=== PATIENT | male | born 1985 | race Caucasian/White ===

== ENCOUNTER 2016-03-22 11:29 | Inpatient (IN) | payer BC, MEDICARE ==
[2016-03-22] MEDS ORDERED: NS 0.9% 1000 ML* 1,000 ML IV ONE (12:12)
[2016-03-22] MEDS ORDERED: Octreotide Acetate* 50 MCG in NS 0.9% 50 ML* 50 ML IVPB ONE ×2 (12:32→12:36)
[2016-03-22] MEDS ORDERED: Ondansetron INJ* 2 MG/ML VIAL IV ONE (12:32)
[2016-03-22 12:43] LABS: Hematocrit 28 % (42-52); Hemoglobin 9.2 g/dl (14.0-18.0); Mean Corpuscular HGB Conc 33 g/dl (31-36); Mean Corpuscular Hemoglobin 29 pg (27-31); Mean Corpuscular Volume 88 fL (80-94); Mean Platelet Volume 8 um3 (7.4-10.4); Red Blood Count 3.18 10^6/ul (4.0-5.4); Red Cell Distribution Width 15 % (10.5-15); White Blood Count 8.4 10^3/ul (3.5-10.8)
[2016-03-22] MEDS ORDERED: NS 0.9% 50 ML* 100 ML ONE (12:44)
[2016-03-22] MEDS ORDERED: Labetalol IV* 5 MG/ML 20 ML VIAL IV PUSH ONE (13:01)
[2016-03-22 13:17] LABS: Albumin 3.8 g/dL (3.2-5.2); BUN/Creatinine Ratio 5.6 (8-20); EGFR Non-African American 2.4 (>60); Globulin 2.1 g/dL (2-4); Magnesium 2.9 mg/dL (1.9-2.7); Total Bilirubin 0.7 mg/dL (0.2-1.0); Total Protein 5.9 g/dL (6.4-8.9)
[2016-03-22 13:20] LABS: Potassium 6.7 mmol/L (3.5-5.0)
[2016-03-22] MEDS ORDERED: Insulin REGULAR(*) 1 UNITS UNIT IV PUSH ONE ×2 (13:29→18:41)
[2016-03-22] MEDS ORDERED: Dextrose 50% Syringe 50 ML* 25 GM/50 ML SYRINGE IV PUSH PRN (13:29)
[2016-03-22] MEDS ORDERED: Calcium Gluconate INJ* 1 GM in NS 0.9% 50 ML* 50 ML IVPB ONE ×2 (13:29→19:15)
[2016-03-22] MEDS ORDERED: Albuterol 2.5 MG/3 ML NEB.SOL* (0.083%) INH ONE (13:29)
[2016-03-22] MEDS ORDERED: fentaNYL* 50 MCG/ML 2 ML VIAL (100 MCG VIAL) IV SLOW PU ONE (13:31)
[2016-03-22] MEDS ORDERED: Metoclopramide IV* 5 MG/ML 2 ML VIAL IV ONE (13:32)
--- NOTE | 2016-03-22 13:39 | RAD ---
INDICATION: Hematemesis COMPARISON: March 04, 2016 TECHNIQUE: A single PA view is obtained. FINDINGS: Bones/Soft Tissues: There are no acute bony findings. Cardiomediastinal: The cardiomediastinal silhouette is normal. Lungs: There are no infiltrates. Pleura: There are no pleural effusions. Other: None IMPRESSION: Normal chest.
--- NOTE | 2016-03-22 13:41 | RAD ---
INDICATION: Epigastric pain COMPARISON: CT February 19, 2016 TECHNIQUE: A single view of the abdomen is submitted. FINDINGS: Bones: There are no acute bony findings. Soft tissues: The soft tissues appear normal. The psoas margins are sharp. Bowel gas pattern: Normal Calcifications: There are no abnormal calcifications. Other: There are clips in the gallbladder fossa. There are clips projecting over the right minor pelvis IMPRESSION: NO ACUTE DIAGNOSTIC FINDINGS.
[2016-03-22] MEDS ORDERED: Pantoprazole IV* 40 MG IV ONE (13:47)
[2016-03-22] MEDS ORDERED: Sodium Polystyrene RECTAL* 30 GM/120 ML RECTAL.SUS PR ONE (14:12)
[2016-03-22] MEDS ORDERED: Morphine INJ* 4 MG/ML 1 ML SYRINGE IV PRN (14:28)
--- NOTE | 2016-03-22 14:47 | ED ---
Rashaun Alejandro Billy, scribed for Jorge Melendez MD on 03/22/16 at 1219 . GI/ HPI - HPI Summary HPI Summary: Patient is a 31 year-old male coming to [facility] presenting with 3x episodes of coffee grounds hematemesis since 2200 last night. He states that he had moderate epigastric pain associated with these episodes. Denies TEIXEIRA or black stools. Denies anticoag treatment. PMHx of Alport Syndrome, patient is on dialysis. - History of Current Complaint Chief Complaint: EDGIBleed Time Seen by Provider: 03/22/16 12:11 Stated Complaint: VOMITTING BLOOD Hx Obtained From: Patient Onset/Duration: Started Hours Ago, Still Present Timing: Intermittent Severity: Moderate Current Severity: Moderate Pain Intensity: 6 Location of Pain: Epigastric Associated Signs and Symptoms: Positive: Hematemesis - coffee grounds, Abdominal Pain. Negative: Black Tarry Stool - Additional Pertinent History Primary Care Physician: MATT - Allergy/Home Medications Allergies/Adverse Reactions: Allergies Allergy/AdvReac Type Severity Reaction Status Date / Time Hydrocodone [From Vicodin] AdvReac Intermediate TWITCHING Verified 03/22/16 11: 45 PMH/Surg Hx/FS Hx/Imm Hx Endocrine/Hematology History: Reports: Hx Anticoagulant Therapy, Hx Anemia Denies: Hx Blood Disorders, Hx Blood Transfusions, Hx Bone Marrow Disease, Hx Diabetes, Hx Systemic Lupus Erythematosus, Hx Sickle Cell Disease, Hx Thyroid Disease, Hx Unexplained Bleeding, Other Endocrine/Hematological Disorders Cardiovascular History: Reports: Hx Embolism - PE, Hx Hypertension - ON MEDS, Other Cardiovascular Problems/Disorders - RT.KIDNEY TRANSPLANT FAILED AND REMOVED/DIALYSIS -W- Denies: Hx Aneurysm, Hx Angina, Hx Angioplasty, Hx Auto Implanted Cardiovert Defib, Hx Cardiac Arrest, Hx Cardiomegaly, Hx Congenital Heart Disease, Hx Congestive Heart Failure, Hx Coronary Artery Disease, Hx Deep Vein Thrombosis, Hx Hypercholesterolemia, Hx Hypotension, Hx Pacemaker/ICD, Hx Peripheral Vascular Disease, Hx Rheumatic Fever, Hx Syncope, Hx Valvular Heart Disease Respiratory History: Reports: Hx Pneumonia, Hx Pulmonary Edema, Other Respiratory Problems/Disorders - pneumothorax Denies: Hx Asthma, Hx Chronic Bronchitis, Hx Chronic Obstructive Pulmonary Disease (COPD), Hx Cystic Fibrosis, Hx Lung Cancer, Hx Pleural Effusion, Hx Pulmonary Embolism, Hx Seasonal Allergies, Hx Sleep Apnea GI History: Reports: Hx Gastroesophageal Reflux Disease Denies: Hx Cirrhosis, Hx Crohn's Disease, Hx Diverticulosis, Hx Gall Bladder Disease, Hx Gastrointestinal Bleed, Hx Hiatal Hernia, Hx Irritable Bowel, Hx Jaundice, Hx Obstructive Bowel, Hx Ileostomy, Hx Pyloric Stenosis, Hx Ulcer, Other GI Disorders History: Reports: Hx Acute Renal Failure, Hx Chronic Renal Failure, Hx Dialysis, Hx Renal Disease - TRANSPLANT - RT, dialysis every Mon., Wed., Fri., Other Problems/Disorders - ALPORTS SYNDROME Denies: Hx Kidney Infection, Hx Kidney Stones Musculoskeletal History: Denies: Hx Arthritis, Hx Back Problems, Hx Bursitis, Hx Congenital Bone Abnormalities, Hx Fibromyalgia, Hx Gout, Hx Orthopedic Injury, Hx Osteoporosis, Hx Scoliosis, Hx Tendonitis Sensory History: Reports: Hx Deafness - mild to moderate hearing loss, Hx Hearing Aid - DOES NOT WEAR OFTEN - NOT IN NOW, Hx Hearing Problem Denies: Hx Cataracts, Hx Contacts or Glasses, Hx Eye Injury, Hx Eye Prosthesis, Hx Glaucoma, Hx Legally Blind, Hx Macular Degeneration, Hx Vision Problem, Other Sensory Impairments Opthamlomology History: Denies: Hx Cataracts, Hx Contacts or Glasses, Hx Eye Injury, Hx Eye Prosthesis, Hx Glaucoma, Hx Legally Blind, Hx Macular Degeneration, Hx Vision Problem, Other Sensory Impairments Neurological History: Reports: Hx Headaches, Hx Migraine - 1-2 PER MONTH Denies: Hx Dementia, Hx Developmental Delay, Hx Nerve Disease, Hx Seizures, Hx Spinal Cord Injury, Hx Transient Ischemic Attacks (TIA), Other Neuro Impairments/Disorders Psychiatric History: Reports: Hx Depression Denies: Hx Panic Disorder - Surgical History Surgery Procedure, Year, and Place: 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[place], [place]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; LEFT LUNG SX FOR REPAIR; LEFT ARM FISTULA FOR DIALISYS 2015, RIGHT CHEST WALL CATH FOR DIALYSIS; RIGHT NEPHRECTOMY - kidney rejected, 2016 Hx Anesthesia Reactions: No - Immunization History Date of Tetanus Vaccine: Unk Date of Influenza Vaccine: Fall 2014 Infectious Disease History: No Infectious Disease History: Denies: Hx Hepatitis, Hx of Known/Suspected MRSA, Hx Tuberculosis, Traveled Outside the [place] in Last 30 Days - Family History Known Family History: Positive: Other - mother carrier of alport disease gene Negative: Blood Disorder - Social History Alcohol Use: None Alcohol Amount: once per month before getting sick in February Hx Substance Use: No Substance Use Type: Reports: None Hx Tobacco Use: Yes Smoking Status (MU): Former Smoker Type: Cigarettes Amount Used/How Often: PACK A DAY Have You Smoked in the Last Year: No Review of Systems Negative: Fever Positive: Abdominal Pain - epigastric, Vomiting - hematemesis Negative: Headache All Other Systems Reviewed And Are Negative: Yes Physical Exam - Summary Physical Exam Summary: VITAL SIGNS: Reviewed. GENERAL: Patient is a thin male who is had an episode of hematemesis with coffe grond emesis. Patient is not in any acute respiratory distress. HEAD AND FACE: No signs of trauma. No ecchymosis, hematomas or skull depressions. No sinus tenderness. EYES: PERRLA, EOMI x 2, pale conjunctiva. EARS: Hearing grossly intact. Ear canals and tympanic membranes are within normal limits. MOUTH: Oropharynx within normal limits. NECK: Supple, trachea is midline, no adenopathy, no JVD CHEST: Symmetric, no tenderness at palpation LUNGS: Clear to auscultation bilaterally. No wheezing or crackles. CVS: Regular rate and rhythm, S1 and S2 present, no murmurs or gallops appreciated. ABDOMEN: Soft, non-tender. No signs of distention. No rebound no guarding, and no masses palpated. Bowel sounds are normal. Rectal exam whit normal sphincter tone and no gross blood or melena. Positive peritoneal dyalisis port. EXTREMITIES: FROM in all major joints, no edema, no cyanosis or clubbing. RIght Upper extremity with a A-V fistula. NEURO: Alert and oriented x 3. No acute neurological deficits. Speech is normal and follows commands. SKIN: Dry and warm Triage Information Reviewed: Yes Vital Signs On Initial Exam: Initial Vitals Temp Pulse Resp BP Pulse Ox 98.2 F 81 18 200/125 100 03/22/16 11:30 03/22/16 11:30 03/22/16 11:30 03/22/16 11:30 03/22/16 11:30 Vital Signs Reviewed: Yes - Hermila Coma Scale Coma Scale Total: 15 Diagnostics - Vital Signs Vital Signs Temp Pulse Resp BP Pulse Ox 03/22/16 11:30 98.2 F 81 18 200/125 100 - Laboratory Lab Results: Lab Results 03/22/16 Range/Units 12:31 WBC 8.4 (3.5-10.8) 10^3/ul RBC 3.18 L (4.0-5.4) 10^6/ul Hgb 9.2 L (14.0-18.0) g/dl Hct 28 L (42-52) % MCV 88 (80-94) fL MCH 29 (27-31) pg MCHC 33 (31-36) g/dl RDW 15 (10.5-15) % Plt Count 270 (150-450) 10^3/ul MPV 8 (7.4-10.4) um3 Neut % (Auto) 68.2 (38-83) % Lymph % (Auto) 16.7 L (25-47) % Blair % (Auto) 4.9 (1-9) % Eos % (Auto) 6.3 H (0-6) % Baso % (Auto) 3.9 H (0-2) % Absolute Neuts (auto) 5.7 (1.5-7.7) 10^3/ul Absolute Lymphs (auto) 1.4 (1.0-4.8) 10^3/ul Absolute Monos (auto) 0.4 (0-0.8) 10^3/ul Absolute Eos (auto) 0.5 (0-0.6) 10^3/ul Absolute Basos (auto) 0.3 H (0-0.2) 10^3/ul Absolute Nucleated RBC 0 10^3/ul Nucleated RBC % 0 Result Diagrams: 03/22/16 12:31 03/22/16 12:31 Lab Statement: Any lab studies that have been ordered have been reviewed, and results considered in the medical decision making process. - Radiology CXR Xray Interpretation: No Acute Changes Radiology Interpretation Completed By: Radiologist Abd XRay Xray Interpretation: No Acute Changes Radiology Interpretation Completed By: Radiologist EMELY Course/Dx - Course Assessment/Plan: Patient is a 31 year-old male coming to [facility] presenting with 3x episodes of coffee grounds hematemesis since 2200 last night. He states that he had moderate epigastric pain associated with these episodes. Denies TEIXEIRA or black stools. Denies anticoag treatment. PMHx of Alport Syndrome, patient is on dialysis. Bloodwork with H&H of 9.2/28, which is actually better than his usual chronic anemia. CMP shows potassium of 6.7, BUN of 130, creatinine of 23, corresponding with ESRD. CXR and abdominal x-ray show no acute pathology. The patient is not taking any bloodthinners. In the ED course, the patient was given Zofran for N/V, he was started Protonix and Octreotide for GI bleeding. For hyperkalemia, he was given calcium gluconate, dextrose, insulin, and albuterol. I withheld the kayexalate since the patient is having active vomiting and upper GI bleeding. He was given labetalol for hypertensive emergency. I discussed my physical exam findings with Dr. Bennett from GI who will come consult for the patient. I also discussed the case with Dr. Payne from ICU, and he accepted the patient for admission. At this point, he is hemodynamically stable, however he is critical. - Diagnoses Differential Diagnoses - Male: Blood Dyscrasia, Esophagitis/Gastritis, Esophageal Varices, Vomiting Provider Diagnoses: Acute upper GI bleed, Hyperkalemia, ESRD (end stage renal disease), Hypertensive emergency - Physician Notifications Discussed Care Of Patient With: Dr. Bennett (GI) @ 1226: will see patient in the ED and likely have him sent to the ICU. Dr. Payne (ICU) @ 1248: will see patient in the ED. Dr. Payne (ICU) @ 1302: accepts admission. Dr. Barrientos ( nephrology) @ 1440: will treat patient with dialysis. - Critical Care Time Critical Care Time: 30-74 min Discharge - Discharge Plan Condition: Critical Disposition: ADMITTED TO [facility] The documentation as recorded by the Rashaun florence Billy accurately reflects the service I personally performed and the decisions made by me, Jorge Melendez MD.
[2016-03-22] MEDS ORDERED: cloNIDine 0.3 MG PATCH* 0.3 MG/24 HR 7 DAY PATCH TRANSDERM SCH (15:00)
[2016-03-22] MEDS: Pantoprazole IV* 80 MG in NS 0.9% 250 ML* 250 ML IVPB SCH (16:05)
[2016-03-22 17:54] LABS: Hematocrit 30 % (42-52); Hemoglobin 9.9 g/dl (14.0-18.0)
[2016-03-22] MEDS ORDERED: Dextrose 50% Syringe 50 ML* 25 GM/50 ML SYRINGE IV PUSH ONE (18:43)
[2016-03-22] MEDS: Ondansetron INJ* 2 MG/ML VIAL IV PRN (20:06)
[2016-03-22] MEDS: Morphine INJ* 4 MG/ML 1 ML SYRINGE IV PRN ×2 (20:06→22:07)
--- NOTE | 2016-03-22 21:04 | HP ---
HOSPITAL MEDICINE HISTORY AND PHYSICAL: DATE OF ADMISSION: 03/22/16 ATTENDING PHYSICIAN: Matthew Marin MD* (dictation provided by Marichuy Damon NP ). CHIEF COMPLAINT: Vomiting of dark red material. HISTORY OF PRESENT ILLNESS: Mr. Sotelo is a 31-year-old male with a past medical history of Alport syndrome, currently on peritoneal dialysis as well as accelerated hypertension and migraines who presents today to the hospital with concern for vomiting of dark red emesis. Mr. Sotelo states he was feeling under the weather yesterday. He thought perhaps he was coming down with a cold. He slept for much of the day. He was able to eat a little bit, although his appetite was weak. He reports that at approximately 2 a.m., he had a sudden onset of nausea with vomiting of dark red emesis. He was able to get back to sleep, but again had vomiting with concern for blood at approximately 8 a.m. He also reports pain along his lower abdomen. He states that his bowel movements were formed yesterday with no evidence of blood and were normal for him. He denies any lightheadedness or dizziness. He states that he takes aspirin very occasionally for headache. He denies any ibuprofen. He denies ever having similar episode in the past. In the emergency room, Mr. Sotelo had several episodes with vomiting of bloody dark emesis. His hemoglobin and hematocrit were 9.2 and 28 respectively. His potassium is 6.7. His BUN is 130. Creatinine is 23.02. Magnesium 2.9. The patient had a chest x-ray that was normal. Abdominal x-ray was normal. Based on Mr. Sotelo' presentation with concern for acute upper GI bleed in the setting of Alport syndrome on peritoneal dialysis with hyperkalemia, Hospital Medicine was called regarding admission. PAST MEDICAL HISTORY: 1. Alport syndrome. 2. Current peritoneal dialysis. 3. History of migraines. 4. Hypertension. 5. Anemia, chronic. MEDICATIONS: 1. Amlodipine 10 mg p.o. daily. 2. B complex with folic acid 1 tab p.o. daily. 3. Calcitriol 0.25 mcg p.o. daily. 4. Minoxidil 2.5 mg p.o. b.i.d. 5. Mupirocin 2% 1 application topically daily. 6. Omeprazole 20 mg p.o. daily. 7. Ondansetron 4 mg p.o. q.6 hours p.r.n. 8. Propranolol 80 mg p.o. t.i.d. 9. Ropinirole 0.5 mg p.o. b.i.d. 10. Sevelamer 3200 mg p.o. t.i.d. 11. Verapamil 240 mg p.o. daily. 12. Clonidine 0.3 mg transdermally q.7 days. ALLERGIES: HYDROCODONE. FAMILY HISTORY: The patient reports that his mother is a positive Alport disease carrier. The patient's maternal grandfather is also on hemodialysis but does not have a confirmed diagnosis of Alport. The patient's father's side of the family is positive for multiple members with heart disease and heart attacks and strokes. SOCIAL HISTORY: No report of alcohol, tobacco, or drug use. The patient states his mother is his healthcare proxy. REVIEW OF SYSTEMS: A 14-point review of systems was completed with Mr. Sotelo and all those not mentioned above were negative. PHYSICAL EXAMINATION GENERAL: Mr. Sotelo is sitting up in the bed. He is in no acute distress, although he does appear uncomfortable. VITAL SIGNS: Temperature 98.2, heart rate 80, respiratory rate 12, O2 saturation 100% on room air, blood pressure 161/87. LUNGS: Clear to auscultation bilaterally with no accessory muscle use and good aeration. HEART: S1, S2. No murmur, rub, or gallop and regular. ABDOMEN: Soft. There is tenderness across the lower quadrant. Bowel sounds are positive. PD site has a clean, dry, and intact dressing. No evidence of erythema or drainage. EXTREMITIES: No cyanosis or edema. NEUROLOGIC: He is alert and oriented x3. He moves all extremities equally. There is no facial asymmetry or focal weakness. Extraocular movements are intact. SKIN: Otherwise intact. LABORATORY DATA AND DIAGNOSTIC STUDIES: Sodium 135, potassium 6.7, chloride 91 , serum bicarbonate 27, BUN 130, creatinine 23.02, glucose 96, magnesium 2.9. INR is 0.87. WBC 8.4, hemoglobin 9.2, hematocrit 28, platelet count 270. Chest x-ray shows no acute process. Abdominal x-ray shows no acute process. ASSESSMENT: Mr. Sotelo is a 31-year-old male with a past medical history of Alport syndrome and severe hypertension who presents today to the hospital with concern for vomiting of dark red emesis and upper GI bleed. Our plans are for admission today to the intensive care unit for the followin. Upper GI bleed: The emergency room physicians have spoken with Dr. Bennett directly and he indicated that he will see the patient today. Plan to start protonix infusion now. Thus far, the patient's hemoglobin and hematocrit are stable. Plan to check q.4 hours. He will be n.p.o. I do not see a clear inciting risk factor. The patient denies any significant intake of aspirin or ibuprofen. 2. Hypertension: The patient's blood pressure on arrival was 200 systolically but now is down to 160s. I am planning to continue his clonidine patch for now , but will be holding all of his oral medications. We will likely need to start an intravenous infusion, likely esmolol or nicardipine. 3. Hyperkalemia with potassium of 6.7: I have tried to reach out to Dr. Arana both at his home number and cellphone number and have let the dialysis unit know that the patient is here in the hospital. The patient was given calcium, glucose, and insulin in the emergency room for acute management of hyperkalemia. I do note that his EKG is not concerning for any EKG changes significant for hyperkalemia. The patient will be given a one-time dose of Kayexalate per rectum. It is likely that we will try to resume peritoneal dialysis for him tonight. The patient states he has been compliant with that on a daily basis. 4. Alport syndrome with peritoneal dialysis: Again, I have tried to reach out to Dr. Arana as per above. 5. DVT prophylaxis with SCDs only. 6. Code status: Full code. 7. Disposition to ICU. TIME SPENT: Approximately 75 minutes were spent on admission of this patient, more than half the time was spent with the patient at the bedside reviewing the events leading up to this hospitalization, performing the physical examination, and reviewing the plan of care. MARICHUY DAMON NP CC: Dr. Frey* [id number]/[facility] #: [id number] [facility] SYSTEMSaige
[2016-03-22 22:26] LABS: Hematocrit 24 % (42-52)
--- NOTE | 2016-03-22 22:34 | CONS ---
GASTROENTEROLOGY CONSULT: DATE: CONSULTING PHYSICIANS: Matthew Marin MD; Jose De Jesus Arana MD; Christa Frey MD.* REASON FOR CONSULTATION: Hematemesis. 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 He is on a renal diet. Yesterday, he just was not feeling right and ate very little. There really was not any pain. He had no diarrhea. Around 2 a.m., he awakened and vomited. He thought he saw some blood in it. He then vomited a couple more times this morning and came to the emergency room. This morning, he had 2 bowel movements that appeared normal to him, though digital rectal in the ER obtained heme-positive stool. He states he had aspirin "a while ago." Detail reveals it was 2 or 3 days ago. He has a history of headaches. At this point, he is tired and cannot say what trade name it is, but says he does not take the aspirin "very often." His mother is not aware of that particular detail. PAST MEDICAL HISTORY: 1. Alport syndrome - cause of chronic renal disease. 2. History of spontaneous pneumothoraces - chest tube, 2008. 3. Migraine headaches - on Depakote. 4. Hypertension. 5. Kidney transplant - in [place], 2010 and explanted 2015. 6. Peritoneal dialysis. SOCIAL HISTORY: He is single, living independently. 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 His mother is a bioinformatics computer scientist at [employer]. REVIEW OF SYSTEMS: No history of acid peptic disease. He denies taking Advil, Motrin, ibuprofen, Aleve, saying they are forbidden with his renal disease. He is anuric. He did have pneumonia earlier this year and had a consult by Dr. Penaloza. Couple of times, he has had hemoptysis without any pneumothorax. There is no history of liver disease, cardiac or parathyroid issues. EXAM: He is a somewhat slightly built young man in no overt distress at this time, though he is thirsty and tired. HEENT exam shows no icterus. He has no adenopathy. Lungs are clear and heart sounds are regular. The abdomen shows several scars. Extremities show no edema. Rectal done in the emergency room. Neurologic: Nonfocal. LABS: Hemoglobin 9.2, hematocrit 28, MCV 88, platelets 270 with prior CBC, , hemoglobin 8.4. He has had prior transfusions 2 units, 01/22/16, and 1 unit, 03/07/16, and those are the only units in our system. IMPRESSION: This 31-year-old man with hematemesis probably has had a Griselda- Cortes tear. He is certainly under some stress on an ongoing basis, but he is on a PPI shelter and without much exposure to NSAIDs or aspirin. The odds of ulceration are significantly reduced. There is some uncertainty on the NSAID history but again, the chronic PPI would probably cover that risk. He is in the ICU and issues with blood pressure, potassium and overall volume status are being addressed. He will have EGD shortly. A PPI drip will be given. [id number]/[facility] #: [id number] [facility]ALSaige
[2016-03-23] MEDS: Morphine INJ* 4 MG/ML 1 ML SYRINGE IV PRN ×7 (00:30→21:24)
[2016-03-23] MEDS: Pantoprazole IV* 80 MG in NS 0.9% 250 ML* 250 ML IVPB SCH ×3 (00:38→21:01)
[2016-03-23 00:45] LABS: Hematocrit 25 % (42-52); Hemoglobin 8.5 g/dl (14.0-18.0)
[2016-03-23 06:06] LABS: Hematocrit 27 % (42-52); Hemoglobin 9.3 g/dl (14.0-18.0); Mean Corpuscular HGB Conc 34 g/dl (31-36); Mean Corpuscular Hemoglobin 30 pg (27-31); Mean Corpuscular Volume 87 fL (80-94); Mean Platelet Volume 8 um3 (7.4-10.4); Red Blood Count 3.13 10^6/ul (4.0-5.4); Red Cell Distribution Width 15 % (10.5-15); White Blood Count 6.7 10^3/ul (3.5-10.8)
[2016-03-23 06:19] LABS: BUN/Creatinine Ratio 5.7 (8-20); Calcium 9.8 mg/dL (8.6-10.3); EGFR African American 3.4 (>60); EGFR Non-African American 2.7 (>60)
[2016-03-23 06:31] LABS: Potassium 7.2 mmol/L (3.5-5.0)
[2016-03-23] MEDS ORDERED: Pantoprazole IV* 40 MG IV SCH (09:00)
[2016-03-23] MEDS ORDERED: fentaNYL* 50 MCG/ML 2 ML VIAL (100 MCG VIAL) ONE ×2 (09:24→15:13)
[2016-03-23] MEDS ORDERED: Midazolam* 1 MG/ML 10 ML VIAL (10 MG) ONE ×2 (09:24→15:13)
[2016-03-23] MEDS ORDERED: Sodium Polystyrene ORAL.SOL* 15 GM/60 ML BTL PO ONE (09:48)
[2016-03-23] MEDS ORDERED: Calcium Gluconate INJ* 1 GM in NS 0.9% 50 ML* 50 ML IVPB ONE (09:48)
--- NOTE | 2016-03-23 10:13 | PN ---
Subjective Date of Service: 03/23/16 Interval History: Pt has a slight headache "from not eating". Denies CP or SOB Objective Active Medications: Clonidine HCl (Zuakpmsk-Nll-4 0.3 Mg Patch*) 0.3 mg TRANSDERM Q7D [facility] Last Admin: 03/22/16 15:50 Dose: 0.3 mg Dextrose (D50w Syringe 50 Ml*) 25 gm IV PUSH ONCE PRN PRN Reason: FS < 60 Pantoprazole Sodium 80 mg/ (Sodium Chloride) 250 mls @ 25 mls/hr IVPB Q10H [facility] Last Admin: 03/23/16 00:38 Dose: 25 mls/hr Calcium Gluconate 1 gm/ Sodium (Chloride) 60 mls @ 120 mls/hr IVPB ONCE ONE Stop: 03/23/16 10:17 Dextrose/Sodium Chloride (D5ns 0.9% 1000 Ml Bag*) 1,000 mls @ 75 mls/hr IV PER RATE [facility] Morphine Sulfate (Morphine Inj (Syringe)*) 4 mg IV Q2H PRN PRN Reason: PAIN Last Admin: 03/23/16 07:30 Dose: 4 mg Mupirocin (Bactroban 2 % Oint*) 1 applic TOPICAL DAILY [facility] Ondansetron HCl (Zofran Inj*) 4 mg IV Q6H PRN PRN Reason: NAUSEA Last Admin: 03/22/16 20:06 Dose: 4 mg Vital Signs 03/22/16 03/22/16 03/22/16 14:10 14:29 14:30 Temperature Pulse Rate 81 80 80 Respiratory 12 11 Rate Blood Pressure 161/87 148/88 (mmHg) O2 Sat by Pulse 96 100 98 Oximetry 03/22/16 03/22/16 03/22/16 14:44 14:47 14:52 Temperature 98.3 F Pulse Rate 78 83 95 Respiratory 16 12 15 Rate Blood Pressure 171/98 (mmHg) O2 Sat by Pulse 98 97 97 Oximetry 03/22/16 03/22/16 03/22/16 15:00 15:28 15:30 Temperature Pulse Rate 77 80 Respiratory 17 17 17 Rate Blood Pressure 164/98 (mmHg) O2 Sat by Pulse 100 100 Oximetry 03/22/16 03/22/16 03/22/16 15:45 16:00 16:15 Temperature Pulse Rate 73 71 64 Respiratory 16 14 Rate Blood Pressure 162/96 141/86 158/98 (mmHg) O2 Sat by Pulse 100 100 100 Oximetry 03/22/16 03/22/16 03/22/16 16:30 17:00 18:00 Temperature Pulse Rate 62 65 59 Respiratory 15 18 18 Rate Blood Pressure 154/84 158/116 181/112 (mmHg) O2 Sat by Pulse 100 94 100 Oximetry 03/22/16 03/22/16 03/22/16 18:06 19:00 19:04 Temperature Pulse Rate 85 Respiratory 14 13 15 Rate Blood Pressure 184/114 193/115 (mmHg) O2 Sat by Pulse 81 Oximetry 03/22/16 03/22/16 03/22/16 20:00 20:04 20:06 Temperature 98.4 F Pulse Rate 67 70 Respiratory 9 12 16 Rate Blood Pressure 165/99 (mmHg) O2 Sat by Pulse 99 99 Oximetry 03/22/16 03/22/16 03/22/16 21:00 22:00 22:07 Temperature Pulse Rate Respiratory 19 12 16 Rate Blood Pressure 182/114 (mmHg) O2 Sat by Pulse 97 100 Oximetry 03/22/16 03/22/16 03/22/16 22:19 23:00 23:13 Temperature Pulse Rate Respiratory 16 17 13 Rate Blood Pressure (mmHg) O2 Sat by Pulse 99 99 Oximetry 03/23/16 03/23/16 03/23/16 00:00 00:07 00:30 Temperature 97.6 F Pulse Rate Respiratory 23 16 Rate Blood Pressure (mmHg) O2 Sat by Pulse 99 Oximetry 03/23/16 03/23/16 03/23/16 00:36 01:00 02:00 Temperature Pulse Rate Respiratory 15 12 16 Rate Blood Pressure 166/108 146/88 160/104 (mmHg) O2 Sat by Pulse 99 99 99 Oximetry 03/23/16 03/23/16 03/23/16 03:00 04:00 04:13 Temperature Pulse Rate Respiratory 14 10 16 Rate Blood Pressure 199/117 154/103 (mmHg) O2 Sat by Pulse 95 99 Oximetry 03/23/16 03/23/16 03/23/16 04:27 05:00 06:00 Temperature 97.6 F Pulse Rate Respiratory 15 12 Rate Blood Pressure 173/107 (mmHg) O2 Sat by Pulse 98 98 Oximetry 03/23/16 03/23/16 03/23/16 06:09 07:00 07:30 Temperature Pulse Rate 63 70 Respiratory 9 14 15 Rate Blood Pressure 180/98 196/99 (mmHg) O2 Sat by Pulse 98 99 Oximetry 03/23/16 03/23/16 03/23/16 08:00 09:00 10:00 Temperature 97.7 F Pulse Rate 72 88 93 Respiratory 10 16 13 Rate Blood Pressure 157/101 196/126 (mmHg) O2 Sat by Pulse 99 100 100 Oximetry 03/23/16 10:01 Temperature Pulse Rate 90 Respiratory 10 Rate Blood Pressure 191/113 (mmHg) O2 Sat by Pulse 99 Oximetry Oxygen Devices in Use Now: None Appearance: 31 yo M in NAD, AAOx3 Eyes: No Scleral Icterus, PERRLA Ears/Nose/Mouth/Throat: NL Teeth, Lips, Gums, Mucous Membranes Moist Neck: NL Appearance and Movements; NL JVP, Trachea Midline Respiratory: Symmetrical Chest Expansion and Respiratory Effort, - - distant breath sounds b/l, otherwise clear Cardiovascular: NL Sounds; No Murmurs; No JVD, RRR Abdominal: NL Sounds; No Tenderness; No Distention, - - PD cath in plpace Lymphatic: No Cervical Adenopathy Extremities: No Edema, No Clubbing, Cyanosis Skin: No Rash or Ulcers, No Nodules or Sclerosis Neurological: Alert and Oriented x 3, NL Muscle Strength and Tone Result Diagrams: 03/23/16 06:00 03/23/16 06:00 Additional Lab and Data: Lab Results 03/22/16 Range/Units 12:31 WBC 8.4 (3.5-10.8) 10^3/ul RBC 3.18 L (4.0-5.4) 10^6/ul Hgb 9.2 L (14.0-18.0) g/dl Hct 28 L (42-52) % MCV 88 (80-94) fL MCH 29 (27-31) pg MCHC 33 (31-36) g/dl RDW 15 (10.5-15) % Plt Count 270 (150-450) 10^3/ul MPV 8 (7.4-10.4) um3 Neut % (Auto) 68.2 (38-83) % Lymph % (Auto) 16.7 L (25-47) % [place] % (Auto) 4.9 (1-9) % Eos % (Auto) 6.3 H (0-6) % Baso % (Auto) 3.9 H (0-2) % Absolute Neuts (auto) 5.7 (1.5-7.7) 10^3/ul Absolute Lymphs (auto) 1.4 (1.0-4.8) 10^3/ul Absolute Monos (auto) 0.4 (0-0.8) 10^3/ul Absolute Eos (auto) 0.5 (0-0.6) 10^3/ul Absolute Basos (auto) 0.3 H (0-0.2) 10^3/ul Absolute Nucleated RBC 0 10^3/ul Nucleated RBC % 0 Assess/Plan/Problems-Billing Assessment: 31 yo M with e/o ESRD on PD, Alport syndrome, migraines, recurrent pulm edema due to HTN emergency in the past presented with hematemesis - Patient Problems (1) Hyperkalemia Comment: Increased despite PD insulin and D50 at admission Kayexalate HD today. Ca gluconate ordered D/w Dr. Arana (2) Upper GI bleed Comment: Cont Protonix gtt EGD after hyperkalemia resolves appreciate Dr. Bennett's consult Hb stable No more hematemesis at night (3) Accelerated secondary hypertension Comment: systolics in 180's continue clonidine patch, amlodipine, verapamil, minoxidil, propranolol (4) Anemia Comment: Acute on chronic. Hb remains low (5) DVT prophylaxis Comment: Ambulate, anticoagulants contraindicated
[2016-03-23] MEDS ORDERED: D5NS 0.9% 1000 ML BAG* 1,000 ML IV SCH (11:00)
[2016-03-23] MEDS: amLODIPine TAB* 5 MG PO SCH (11:55)
[2016-03-23] MEDS: Verapamil SR TAB* 240 MG PO SCH (12:16)
[2016-03-23] MEDS: Propranolol TAB* 80 MG PO SCH ×2 (12:47→20:52)
[2016-03-23] MEDS ORDERED: Labetalol IV* 5 MG/ML 20 ML VIAL IV PUSH PRN (12:49)
[2016-03-23] MEDS: Mupirocin 2% OINT* TUBE TOPICAL SCH (13:16)
[2016-03-23 15:04] LABS: Hematocrit 21 % (42-52); Hemoglobin 7.1 g/dl (14.0-18.0); Mean Corpuscular HGB Conc 34 g/dl (31-36); Mean Corpuscular Hemoglobin 29 pg (27-31); Mean Corpuscular Volume 86 fL (80-94); Mean Platelet Volume 8 um3 (7.4-10.4); Red Blood Count 2.44 10^6/ul (4.0-5.4); Red Cell Distribution Width 15 % (10.5-15); White Blood Count 4.9 10^3/ul (3.5-10.8)
[2016-03-23 15:27] LABS: BUN/Creatinine Ratio 5.3 (8-20); Calcium 8.4 mg/dL (8.6-10.3); EGFR African American 11.6 (>60); Potassium 2.8 mmol/L (3.5-5.0)
[2016-03-23] MEDS: Ropinirole TAB* 0.5 MG TAB PO SCH (20:52)
[2016-03-23] MEDS: MinoXIDil TAB* 2.5 MG TAB PO SCH (20:52)
--- NOTE | 2016-03-24 00:35 | PRO ---
DATE: 03/23/16 - ROOM #ICU-03 REFERRING PHYSICIAN: Jose De Jesus Arana; Christa Chu* PROCEDURE: Upper gastrointestinal endoscopy and CLOtest. INDICATION: This 31-year-old man currently receiving peritoneal dialysis, though supplemented by some hemodialysis was admitted yesterday with hematemesis. He had vomited through the night bringing up blood. His mother says he has been vomiting a lot lately. He has been on omeprazole 20 mg every morning about a year. Details of indication, etc, they are not certain of. Over the last 30 hours in the hospital, he has not had any further emesis. His blood count has remained stable. Prior to this exam, he received hemodialysis because of potassium level in the upper 7s. He was run against the dialysate of 1.0 potassium. ENDOSCOPIST: Dr Bennett MEDICATIONS: Midazolam 5, fentanyl 25. FINDINGS: He is a chronically ill appearing young man in no overt distress now. Blood pressure 140/85, pulse 80, afebrile. EGD: Larynx - limited views are symmetric. Esophagus - easily entered and the mucosa is normal in the upper, mid and lower esophagus, though at the hiatus and squamocolumnar junction which were coincident, there was a Griselda-Cortes tear. There was an adherent clot with protrusion. No Young's changes evident. There were no peptic erosions. Stomach - in retroflexion, there was a substantial amount of gastritis in the high fundus consistent with a concussive hematogenic effect. There were no erosions and no bleeding. The rugal folds appeared normal. A CLOtest taken. The gastric antrum appeared normal. Duodenum - the pylorus, bulb and second to fourth portions appeared normal. There were no chronic abnormalities. IMPRESSION: 1. Griselda Cortes tear - has stopped bleeding at this moment and feeding can be resumed with mechanical soft diet. 2. Upper GI bleed - see above. 3. Frequent vomiting - presumably related to metabolic abnormalities. Addendum: Clotest negative [id number]/[facility] #: [id number] MTDD
[2016-03-24] MEDS: Morphine INJ* 4 MG/ML 1 ML SYRINGE IV PRN ×3 (01:46→14:12)
[2016-03-24] MEDS: Pantoprazole IV* 80 MG in NS 0.9% 250 ML* 250 ML IVPB SCH (06:24)
[2016-03-24 06:26] LABS: Hematocrit 18 % (42-52); Mean Corpuscular HGB Conc 34 g/dl (31-36); Mean Corpuscular Hemoglobin 30 pg (27-31); Mean Corpuscular Volume 86 fL (80-94); Mean Platelet Volume 8 um3 (7.4-10.4); Red Cell Distribution Width 14 % (10.5-15); White Blood Count 3.7 10^3/ul (3.5-10.8)
[2016-03-24 06:27] LABS: Comments Flag Yes
[2016-03-24 06:28] LABS: Hemoglobin 6.2 g/dl (14.0-18.0)
[2016-03-24 06:29] LABS: Add Diff/Slide Review? Slide Review Added
[2016-03-24 06:36] LABS: BUN/Creatinine Ratio 4.3 (8-20); Calcium 8.4 mg/dL (8.6-10.3); EGFR African American 5.9 (>60); EGFR Non-African American 4.6 (>60); Potassium 5.3 mmol/L (3.5-5.0)
[2016-03-24 08:34] LABS: Hematocrit 19 % (42-52)
[2016-03-24 08:44] LABS: Comments Flag Yes
[2016-03-24 08:47] LABS: Hemoglobin 6.4 g/dl (14.0-18.0)
[2016-03-24] MEDS: Sevelamer TAB* 800 MG PO SCH ×2 (10:10→17:35)
[2016-03-24] MEDS: Verapamil SR TAB* 240 MG PO SCH (10:10)
[2016-03-24] MEDS: MinoXIDil TAB* 2.5 MG TAB PO SCH ×2 (10:11→20:32)
[2016-03-24] MEDS: Propranolol TAB* 80 MG PO SCH ×3 (10:11→20:32)
[2016-03-24] MEDS: Ropinirole TAB* 0.5 MG TAB PO SCH ×2 (10:11→20:32)
[2016-03-24] MEDS: amLODIPine TAB* 5 MG PO SCH (10:11)
[2016-03-24] MEDS: Calcitriol CAP* 0.25 MCG PO SCH (10:11)
[2016-03-24] MEDS: Mupirocin 2% OINT* TUBE TOPICAL SCH (10:12)
--- NOTE | 2016-03-24 11:51 | PN ---
Subjective Date of Service: 03/24/16 Interval History: pt feels well today, no BM's since admission. No hemoptysis/hematemesis Objective Active Medications: Amlodipine Besylate (Norvasc Tab*) 10 mg PO DAILY [facility] Last Admin: 03/24/16 10:11 Dose: 10 mg Calcitriol (Rocaltrol Cap*) 0.25 mcg PO DAILY [facility] Last Admin: 03/24/16 10:11 Dose: 0.25 mcg Clonidine HCl (Nfs[place]uuk-Hbr-0 0.3 Mg Patch*) 0.3 mg TRANSDERM Q7D [facility] Last Admin: 03/22/16 15:50 Dose: 0.3 mg Dextrose (D50w Syringe 50 Ml*) 25 gm IV PUSH ONCE PRN PRN Reason: FS < 60 Labetalol HCl (Trandate Iv*) 10 mg IV PUSH Q6H PRN PRN Reason: BLOOD PRESSURE Last Admin: 03/23/16 13:12 Dose: 10 mg Minoxidil (Loniten Tab*) 2.5 mg PO BID [facility] Last Admin: 03/24/16 10:11 Dose: 2.5 mg Morphine Sulfate (Morphine Inj (Syringe)*) 4 mg IV Q2H PRN PRN Reason: PAIN Last Admin: 03/24/16 10:08 Dose: 4 mg Mupirocin (Bactroban 2 % Oint*) 1 applic TOPICAL DAILY [facility] Last Admin: 03/24/16 10:12 Dose: 1 top.lotion Omeprazole (Prilosec Cap*) 20 mg PO BID@0730,1630 [facility] Ondansetron HCl (Zofran Inj*) 4 mg IV Q6H PRN PRN Reason: NAUSEA Last Admin: 03/22/16 20:06 Dose: 4 mg Propranolol HCl (Inderal Tab*) 80 mg PO TID [facility] Last Admin: 03/24/16 10:11 Dose: 80 mg Ropinirole HCl (Requip Tab*) 0.5 mg PO BID [facility] Last Admin: 03/24/16 10:11 Dose: 0.5 mg Sevelamer Carbonate (Renvela Tab*) 3,200 mg PO TID WITH MEALS [facility] Last Admin: 03/24/16 10:10 Dose: 3,200 mg Verapamil HCl (Calan Sr Tab*) 240 mg PO DAILY [facility] Last Admin: 03/24/16 10:10 Dose: 240 mg Vital Signs 03/23/16 03/23/16 03/23/16 12:00 12:15 12:30 Temperature Pulse Rate 98 101 105 Respiratory 20 17 14 Rate Blood Pressure 183/107 182/115 179/106 (mmHg) O2 Sat by Pulse 100 99 98 Oximetry 03/23/16 03/23/16 03/23/16 12:45 12:50 13:00 Temperature Pulse Rate 120 134 Respiratory 15 20 23 Rate Blood Pressure 182/110 207/118 (mmHg) O2 Sat by Pulse 100 100 Oximetry 03/23/16 03/23/16 03/23/16 13:15 13:30 13:45 Temperature Pulse Rate 114 97 87 Respiratory 16 18 13 Rate Blood Pressure 166/110 168/100 152/90 (mmHg) O2 Sat by Pulse 100 99 100 Oximetry 03/23/16 03/23/16 03/23/16 14:00 14:15 14:30 Temperature Pulse Rate 87 84 79 Respiratory 15 14 13 Rate Blood Pressure 145/88 153/77 146/81 (mmHg) O2 Sat by Pulse 100 100 98 Oximetry 03/23/16 03/23/16 03/23/16 14:45 15:00 15:15 Temperature Pulse Rate 89 88 82 Respiratory 17 13 10 Rate Blood Pressure 147/82 147/85 156/72 (mmHg) O2 Sat by Pulse 100 100 98 Oximetry 03/23/16 03/23/16 03/23/16 15:21 15:25 15:30 Temperature Pulse Rate 87 87 94 Respiratory 17 10 17 Rate Blood Pressure 140/80 136/72 137/78 (mmHg) O2 Sat by Pulse 99 94 99 Oximetry 03/23/16 03/23/16 03/23/16 15:35 15:40 15:45 Temperature Pulse Rate 82 84 87 Respiratory 25 14 18 Rate Blood Pressure 152/82 137/71 128/65 (mmHg) O2 Sat by Pulse 100 97 98 Oximetry 03/23/16 03/23/16 03/23/16 15:50 15:55 16:00 Temperature 98 F Pulse Rate 87 88 87 Respiratory 19 17 18 Rate Blood Pressure 118/56 117/54 116/58 (mmHg) O2 Sat by Pulse 97 98 97 Oximetry 03/23/16 03/23/16 03/23/16 16:15 16:30 16:45 Temperature Pulse Rate 86 82 81 Respiratory 13 12 10 Rate Blood Pressure 118/56 124/58 114/55 (mmHg) O2 Sat by Pulse 99 97 98 Oximetry 03/23/16 03/23/16 03/23/16 17:00 18:00 18:42 Temperature Pulse Rate 78 75 Respiratory 18 13 15 Rate Blood Pressure 118/48 143/91 (mmHg) O2 Sat by Pulse 100 99 Oximetry 03/23/16 03/23/16 03/23/16 19:00 19:48 19:53 Temperature 98.5 F Pulse Rate 92 Respiratory 18 15 Rate Blood Pressure 141/86 (mmHg) O2 Sat by Pulse 100 Oximetry 03/23/16 03/23/16 03/23/16 20:00 21:00 21:24 Temperature Pulse Rate 84 80 Respiratory 14 18 15 Rate Blood Pressure 142/77 134/76 (mmHg) O2 Sat by Pulse 99 99 Oximetry 03/23/16 03/23/16 03/23/16 21:58 22:00 23:00 Temperature Pulse Rate 73 74 Respiratory 20 15 13 Rate Blood Pressure 145/63 124/69 (mmHg) O2 Sat by Pulse 100 99 Oximetry 03/23/16 03/23/16 03/23/16 23:10 23:40 23:48 Temperature 98.6 F Pulse Rate 78 Respiratory 15 23 Rate Blood Pressure (mmHg) O2 Sat by Pulse 99 Oximetry 03/24/16 03/24/16 03/24/16 00:00 00:01 01:00 Temperature Pulse Rate 73 73 71 Respiratory 10 11 9 Rate Blood Pressure 120/59 119/58 (mmHg) O2 Sat by Pulse 97 98 98 Oximetry 03/24/16 03/24/16 03/24/16 01:46 01:53 02:00 Temperature Pulse Rate 72 Respiratory 13 13 15 Rate Blood Pressure 122/61 (mmHg) O2 Sat by Pulse 99 Oximetry 03/24/16 03/24/16 03/24/16 02:59 04:00 05:00 Temperature 98.9 F Pulse Rate 74 76 81 Respiratory 13 11 12 Rate Blood Pressure 118/54 122/59 (mmHg) O2 Sat by Pulse 97 95 98 Oximetry 03/24/16 03/24/16 03/24/16 05:59 06:00 07:00 Temperature 99.2 F Pulse Rate 71 72 Respiratory 11 6 12 Rate Blood Pressure 108/45 (mmHg) O2 Sat by Pulse 96 98 Oximetry 03/24/16 03/24/16 03/24/16 07:24 07:53 08:00 Temperature 99.8 F Pulse Rate 76 78 Respiratory 9 10 Rate Blood Pressure 108/48 112/48 (mmHg) O2 Sat by Pulse 98 98 Oximetry 03/24/16 03/24/16 03/24/16 09:00 10:00 10:08 Temperature Pulse Rate 73 83 Respiratory 9 12 12 Rate Blood Pressure 124/60 143/64 (mmHg) O2 Sat by Pulse 98 99 Oximetry Oxygen Devices in Use Now: None Appearance: 31 yo M in nAd, aAOx3 Eyes: No Scleral Icterus, PERRLA Ears/Nose/Mouth/Throat: NL Teeth, Lips, Gums, Mucous Membranes Moist Neck: NL Appearance and Movements; NL JVP, Trachea Midline Respiratory: Symmetrical Chest Expansion and Respiratory Effort, Clear to Auscultation Cardiovascular: NL Sounds; No Murmurs; No JVD, RRR Abdominal: NL Sounds; No Tenderness; No Distention, - - PD cath in place Lymphatic: No Cervical Adenopathy Extremities: No Edema Skin: No Rash or Ulcers, No Nodules or Sclerosis Neurological: Alert and Oriented x 3, NL Muscle Strength and Tone Result Diagrams: 03/24/16 08:25 03/24/16 05:55 Additional Lab and Data: Lab Results 03/22/16 Range/Units 12:31 WBC 8.4 (3.5-10.8) 10^3/ul RBC 3.18 L (4.0-5.4) 10^6/ul Hgb 9.2 L (14.0-18.0) g/dl Hct 28 L (42-52) % MCV 88 (80-94) fL MCH 29 (27-31) pg MCHC 33 (31-36) g/dl RDW 15 (10.5-15) % Plt Count 270 (150-450) 10^3/ul MPV 8 (7.4-10.4) um3 Neut % (Auto) 68.2 (38-83) % Lymph % (Auto) 16.7 L (25-47) % [place] % (Auto) 4.9 (1-9) % Eos % (Auto) 6.3 H (0-6) % Baso % (Auto) 3.9 H (0-2) % Absolute Neuts (auto) 5.7 (1.5-7.7) 10^3/ul Absolute Lymphs (auto) 1.4 (1.0-4.8) 10^3/ul Absolute Monos (auto) 0.4 (0-0.8) 10^3/ul Absolute Eos (auto) 0.5 (0-0.6) 10^3/ul Absolute Basos (auto) 0.3 H (0-0.2) 10^3/ul Absolute Nucleated RBC 0 10^3/ul Nucleated RBC % 0 Microbiology and Other Data: Microbiology 03/23/16 15:35 CLOtest - Final Gastric Antrum Assess/Plan/Problems-Billing Assessment: 31 yo M with e/o ESRD on PD, Alport syndrome, migraines, recurrent pulm edema due to HTN emergency in the past presented with hematemesis - Patient Problems (1) Hyperkalemia Comment: s/p HD on 03/23/16, now K down to 5.3 D/w Dr. Arana (2) Upper GI bleed Comment: EGD showed Griselda Cortes tear. Pt stated that he vomits ocassionally at home and he run out off his [employer] d/w Dr. Bennett's cont Prilosec BID and soft diet. Hb doen to 6 , but no further signs of acute bleeding (3) Accelerated secondary hypertension Comment: resolved continue clonidine patch, amlodipine, verapamil, minoxidil, propranolol (4) Anemia Comment: Acute due to acute GI bleed on chronic due to ESRD Hb today at 6. no signs of bleeding. Pt refused transfusion in consideration of possibility of developing antibodies when transplanted Pt is hemodynamically stable. No transfusion will be performed (5) DVT prophylaxis Comment: Ambulate, anticoagulants contraindicated
[2016-03-24] MEDS: Omeprazole CAP* 20 MG PO SCH (16:15)
[2016-03-24 16:20] LABS: Comments Flag Yes; Hematocrit 18 % (42-52)
[2016-03-24 16:21] LABS: Hemoglobin 6.1 g/dl (14.0-18.0)
[2016-03-25 05:43] LABS: Hematocrit 17 % (42-52); Mean Corpuscular HGB Conc 34 g/dl (31-36); Mean Corpuscular Hemoglobin 30 pg (27-31); Mean Corpuscular Volume 87 fL (80-94); Mean Platelet Volume 8 um3 (7.4-10.4); Red Blood Count 1.91 10^6/ul (4.0-5.4); Red Cell Distribution Width 14 % (10.5-15); White Blood Count 2.1 10^3/ul (3.5-10.8)
[2016-03-25 05:48] LABS: Comments Flag Yes
[2016-03-25 05:49] LABS: Hemoglobin 5.6 g/dl (14.0-18.0)
[2016-03-25 05:50] LABS: Add Diff/Slide Review? Slide Review Added
[2016-03-25 05:52] LABS: Calcium 8.6 mg/dL (8.6-10.3); EGFR African American 5.3 (>60); EGFR Non-African American 4.1 (>60); Potassium 4.8 mmol/L (3.5-5.0)
[2016-03-25] MEDS: Sevelamer TAB* 800 MG PO SCH ×3 (08:49→16:57)
[2016-03-25] MEDS: Omeprazole CAP* 20 MG PO SCH ×2 (08:49→16:57)
[2016-03-25] MEDS: Propranolol TAB* 80 MG PO SCH ×3 (09:01→21:01)
[2016-03-25] MEDS: MinoXIDil TAB* 2.5 MG TAB PO SCH ×2 (09:01→21:01)
[2016-03-25] MEDS: amLODIPine TAB* 5 MG PO SCH (09:01)
[2016-03-25] MEDS: Calcitriol CAP* 0.25 MCG PO SCH (09:02)
[2016-03-25] MEDS: Ropinirole TAB* 0.5 MG TAB PO SCH ×2 (09:02→21:01)
[2016-03-25] MEDS: Verapamil SR TAB* 240 MG PO SCH (09:02)
[2016-03-25] MEDS: Mupirocin 2% OINT* TUBE TOPICAL SCH (09:07)
[2016-03-25] MEDS ORDERED: Iron Sucrose* 20 MG/ML 5 ML VIAL IV PUSH ONE (10:22)
[2016-03-25] MEDS ORDERED: Epoetin Alfa* 20,000 UNITS/ML VIAL - TWENTY THOUSAND - SUBCUT ONE (10:23)
--- NOTE | 2016-03-25 10:29 | PN ---
Subjective Date of Service: 03/25/16 Interval History: pt c/o throat feeling "sore". tolerating soft diet Objective Active Medications: Amlodipine Besylate (Norvasc Tab*) 10 mg PO DAILY [facility] Last Admin: 03/25/16 09:01 Dose: 10 mg Calcitriol (Rocaltrol Cap*) 0.25 mcg PO DAILY [facility] Last Admin: 03/25/16 09:02 Dose: 0.25 mcg Clonidine HCl (Qqbxaggt-Nru-7 0.3 Mg Patch*) 0.3 mg TRANSDERM Q7D [facility] Last Admin: 03/22/16 15:50 Dose: 0.3 mg Dextrose (D50w Syringe 50 Ml*) 25 gm IV PUSH ONCE PRN PRN Reason: FS < 60 Epoetin Arturo (Epogen*) 20,000 units SUBCUT ONCE ONE Stop: 03/25/16 10:24 Iron Sucrose (Venofer*) 200 mg IV PUSH ONCE ONE Stop: 03/25/16 10:23 Labetalol HCl (Trandate Iv*) 10 mg IV PUSH Q6H PRN PRN Reason: BLOOD PRESSURE Last Admin: 03/23/16 13:12 Dose: 10 mg Minoxidil (Loniten Tab*) 2.5 mg PO BID [facility] Last Admin: 03/25/16 09:01 Dose: 2.5 mg Morphine Sulfate (Morphine Inj (Syringe)*) 4 mg IV Q2H PRN PRN Reason: PAIN Last Admin: 03/24/16 14:12 Dose: 4 mg Mupirocin (Bactroban 2 % Oint*) 1 applic TOPICAL DAILY [facility] Last Admin: 03/25/16 09:07 Dose: Not Given Omeprazole (Prilosec Cap*) 20 mg PO BID@0730,1630 [facility] Last Admin: 03/25/16 08:49 Dose: 20 mg Ondansetron HCl (Zofran Inj*) 4 mg IV Q6H PRN PRN Reason: NAUSEA Last Admin: 03/22/16 20:06 Dose: 4 mg Propranolol HCl (Inderal Tab*) 80 mg PO TID [facility] Last Admin: 03/25/16 09:01 Dose: 80 mg Ropinirole HCl (Requip Tab*) 0.5 mg PO BID [facility] Last Admin: 03/25/16 09:02 Dose: 0.5 mg Sevelamer Carbonate (Renvela Tab*) 3,200 mg PO TID WITH MEALS [facility] Last Admin: 03/25/16 08:49 Dose: 3,200 mg Sucralfate (Carafate*) 1 gm PO 0600,1100,2100 [facility] Verapamil HCl (Calan Sr Tab*) 240 mg PO DAILY [facility] Last Admin: 03/25/16 09:02 Dose: 240 mg Vital Signs 03/24/16 03/24/16 03/24/16 11:00 12:00 13:00 Temperature 99.8 F Pulse Rate 74 85 84 Respiratory 8 14 16 Rate Blood Pressure 115/52 123/61 134/77 (mmHg) O2 Sat by Pulse 99 100 99 Oximetry 03/24/16 03/24/16 03/24/16 13:17 14:00 14:12 Temperature Pulse Rate 73 Respiratory 12 14 14 Rate Blood Pressure 129/56 (mmHg) O2 Sat by Pulse 100 Oximetry 03/24/16 03/24/16 03/24/16 15:00 15:37 16:00 Temperature 98.4 F Pulse Rate 72 72 Respiratory 13 19 Rate Blood Pressure 127/52 (mmHg) O2 Sat by Pulse 99 99 Oximetry 03/24/16 03/24/16 03/24/16 16:04 17:00 18:00 Temperature Pulse Rate 65 65 69 Respiratory 9 24 12 Rate Blood Pressure 116/54 120/52 124/54 (mmHg) O2 Sat by Pulse 99 98 99 Oximetry 03/24/16 03/24/16 03/24/16 18:37 19:00 19:27 Temperature Pulse Rate 69 Respiratory 11 14 19 Rate Blood Pressure 115/53 (mmHg) O2 Sat by Pulse 97 Oximetry 03/24/16 03/24/16 03/24/16 19:48 20:00 21:00 Temperature 99.5 F Pulse Rate 68 65 Respiratory 13 12 Rate Blood Pressure 122/57 123/54 (mmHg) O2 Sat by Pulse 98 99 Oximetry 03/24/16 03/24/16 03/24/16 21:58 22:00 23:00 Temperature Pulse Rate 64 62 Respiratory 12 9 7 Rate Blood Pressure 106/52 118/48 (mmHg) O2 Sat by Pulse 100 100 Oximetry 03/24/16 03/25/16 03/25/16 23:41 00:00 00:02 Temperature 99.2 F Pulse Rate 63 Respiratory 8 Rate Blood Pressure 86/34 (mmHg) O2 Sat by Pulse 96 Oximetry 03/25/16 03/25/16 03/25/16 00:17 01:00 02:00 Temperature Pulse Rate 65 64 67 Respiratory 21 10 10 Rate Blood Pressure 104/37 105/40 (mmHg) O2 Sat by Pulse 94 97 98 Oximetry 03/25/16 03/25/16 03/25/16 02:52 03:00 03:56 Temperature 99.1 F Pulse Rate 65 Respiratory 11 11 Rate Blood Pressure 108/42 (mmHg) O2 Sat by Pulse 97 Oximetry 03/25/16 03/25/16 03/25/16 04:00 05:00 05:53 Temperature Pulse Rate 63 65 Respiratory 11 9 23 Rate Blood Pressure 121/49 115/50 (mmHg) O2 Sat by Pulse 100 100 Oximetry 03/25/16 03/25/16 03/25/16 06:00 07:00 07:45 Temperature 99.1 F Pulse Rate 62 65 Respiratory 19 11 Rate Blood Pressure 105/43 111/47 (mmHg) O2 Sat by Pulse 95 97 Oximetry 03/25/16 03/25/16 08:00 09:00 Temperature Pulse Rate 66 83 Respiratory 12 15 Rate Blood Pressure 106/38 151/84 (mmHg) O2 Sat by Pulse 99 96 Oximetry Oxygen Devices in Use Now: None Appearance: 31 yo M in NAD, AAOx3 Eyes: No Scleral Icterus, PERRLA Ears/Nose/Mouth/Throat: NL Teeth, Lips, Gums, Mucous Membranes Moist Neck: NL Appearance and Movements; NL JVP, Trachea Midline Respiratory: Symmetrical Chest Expansion and Respiratory Effort, Clear to Auscultation Cardiovascular: NL Sounds; No Murmurs; No JVD, RRR Abdominal: NL Sounds; No Tenderness; No Distention, - - PD cath in place Lymphatic: No Cervical Adenopathy Extremities: No Edema, No Clubbing, Cyanosis Skin: No Rash or Ulcers, No Nodules or Sclerosis Neurological: Alert and Oriented x 3, NL Muscle Strength and Tone Result Diagrams: 03/25/16 05:12 03/25/16 05:12 Additional Lab and Data: Lab Results 03/22/16 Range/Units 12:31 WBC 8.4 (3.5-10.8) 10^3/ul RBC 3.18 L (4.0-5.4) 10^6/ul Hgb 9.2 L (14.0-18.0) g/dl Hct 28 L (42-52) % MCV 88 (80-94) fL MCH 29 (27-31) pg MCHC 33 (31-36) g/dl RDW 15 (10.5-15) % Plt Count 270 (150-450) 10^3/ul MPV 8 (7.4-10.4) um3 Neut % (Auto) 68.2 (38-83) % Lymph % (Auto) 16.7 L (25-47) % Lewis % (Auto) 4.9 (1-9) % Eos % (Auto) 6.3 H (0-6) % Baso % (Auto) 3.9 H (0-2) % Absolute Neuts (auto) 5.7 (1.5-7.7) 10^3/ul Absolute Lymphs (auto) 1.4 (1.0-4.8) 10^3/ul Absolute Monos (auto) 0.4 (0-0.8) 10^3/ul Absolute Eos (auto) 0.5 (0-0.6) 10^3/ul Absolute Basos (auto) 0.3 H (0-0.2) 10^3/ul Absolute Nucleated RBC 0 10^3/ul Nucleated RBC % 0 Microbiology and Other Data: Microbiology 03/23/16 15:35 CLOtest - Final Gastric Antrum Assess/Plan/Problems-Billing Assessment: 31 yo M with e/o ESRD on PD, Alport syndrome, migraines, recurrent pulm edema due to HTN emergency in the past presented with hematemesis - Patient Problems (1) Hyperkalemia Comment: s/p HD on 03/23/16, the PD on night of 03/24/16 resolved. As d/w Dr. Arana pt will undergo creat clearance estimation in the next 24 H as per nephrology (2) Upper GI bleed Comment: EGD showed Griselda Cortes tear. Pt stated that he vomits ocassionally at home and he run out off his Zofran tabs as d/w Dr. Bennett's cont Prilosec BID and soft diet. Hb down to 5.4 , but no further signs of acute bleeding and pt is hemodynamically stable will start Carafate for symptoms of "sore throat" (3) Accelerated secondary hypertension Comment: resolved continue clonidine patch, amlodipine, verapamil, minoxidil, propranolol (4) Anemia Comment: Acute due to acute GI bleed on chronic due to ESRD Hb today at 5.4. no signs of bleeding. Pt refused transfusion in consideration of possibility of developing antibodies when transplanted Pt is hemodynamically stable. No transfusion will be performed (5) DVT prophylaxis Comment: Ambulate, anticoagulants contraindicated (6) Leukopenia Comment: and mild pancytopenia ? due to response to stress? No evidence of infection or further bleeding. Iron studies pending, but as per d/w Dr. Arana will tx with Venofer and Epogen today Status and Disposition: inpatient, transfer to med floor today
[2016-03-25] MEDS: Ondansetron INJ* 2 MG/ML VIAL IV PRN (11:18)
[2016-03-25 12:03] LABS: Folate 7.05 ng/mL (>3.99)
[2016-03-25] MEDS: Sucralfate TAB* 1 GM PO SCH ×2 (14:34→21:05)
[2016-03-25] MEDS: Morphine INJ* 4 MG/ML 1 ML SYRINGE IV PRN (19:24)
[2016-03-26] MEDS: Sucralfate TAB* 1 GM PO SCH ×3 (05:25→20:23)
[2016-03-26 06:13] LABS: Hematocrit 17 % (42-52); Mean Corpuscular HGB Conc 34 g/dl (31-36); Mean Corpuscular Hemoglobin 30 pg (27-31); Mean Corpuscular Volume 86 fL (80-94); Mean Platelet Volume 8 um3 (7.4-10.4); Red Blood Count 1.97 10^6/ul (4.0-5.4); Red Cell Distribution Width 15 % (10.5-15); White Blood Count 2.6 10^3/ul (3.5-10.8)
[2016-03-26 06:24] LABS: Comments Flag Yes
[2016-03-26 06:26] LABS: Hemoglobin 5.9 g/dl (14.0-18.0)
[2016-03-26 06:28] LABS: BUN/Creatinine Ratio 3.7 (8-20); Calcium 8.9 mg/dL (8.6-10.3); EGFR African American 4.9 (>60); EGFR Non-African American 3.8 (>60); Potassium 4.9 mmol/L (3.5-5.0)
[2016-03-26 06:46] LABS: Add Diff/Slide Review? Slide Review Added
[2016-03-26] MEDS: Sevelamer TAB* 800 MG PO SCH ×3 (09:06→17:47)
[2016-03-26] MEDS: Propranolol TAB* 80 MG PO SCH ×3 (09:07→20:23)
[2016-03-26] MEDS: MinoXIDil TAB* 2.5 MG TAB PO SCH ×2 (09:07→20:23)
[2016-03-26] MEDS: Verapamil SR TAB* 240 MG PO SCH (09:08)
[2016-03-26] MEDS: Omeprazole CAP* 20 MG PO SCH ×2 (09:08→17:48)
[2016-03-26] MEDS: Calcitriol CAP* 0.25 MCG PO SCH (09:08)
[2016-03-26] MEDS: amLODIPine TAB* 5 MG PO SCH (09:08)
[2016-03-26] MEDS: Ropinirole TAB* 0.5 MG TAB PO SCH ×2 (09:08→20:23)
[2016-03-26] MEDS: Mupirocin 2% OINT* TUBE TOPICAL SCH (09:09)
--- NOTE | 2016-03-26 15:57 | PN ---
Subjective Date of Service: 03/26/16 Interval History: Patient seen this afternoon. Said he feels well, has been eating and drinking. Mild sore throat. No BM yet. Denies TEIXEIRA, chest pain. Family History: Unchanged from Admission Social History: Unchanged from Admission Past Medical History: Unchanged from Admission Objective Active Medications: Amlodipine Besylate (Norvasc Tab*) 10 mg PO DAILY ZHANE Calcitriol (Rocaltrol Cap*) 0.25 mcg PO DAILY ZHANE Clonidine HCl (Wydptruk-Rfu-4 0.3 Mg Patch*) 0.3 mg TRANSDERM Q7D ZHANE Dextrose (D50w Syringe 50 Ml*) 25 gm IV PUSH ONCE PRN Labetalol HCl (Trandate Iv*) 10 mg IV PUSH Q6H PRN Minoxidil (Loniten Tab*) 2.5 mg PO BID ZHANE Morphine Sulfate (Morphine Inj (Syringe)*) 4 mg IV Q2H PRN Mupirocin (Bactroban 2 % Oint*) 1 applic TOPICAL DAILY ZHANE Omeprazole (Prilosec Cap*) 20 mg PO BID@0730,1630 ZHANE Ondansetron HCl (Zofran Inj*) 4 mg IV Q6H PRN Propranolol HCl (Inderal Tab*) 80 mg PO TID ZHANE Ropinirole HCl (Requip Tab*) 0.5 mg PO BID ZHANE Sevelamer Carbonate (Renvela Tab*) 3,200 mg PO TID WITH MEALS ZHANE Sucralfate (Carafate*) 1 gm PO 0600,1100,2100 ZHANE Verapamil HCl (Calan Sr Tab*) 240 mg PO DAILY [facility] Vital Signs 03/25/16 03/25/16 03/25/16 16:02 19:19 19:24 Temperature 98.7 F 98.3 F Pulse Rate 69 71 Respiratory 16 16 16 Rate Blood Pressure 121/49 121/46 (mmHg) O2 Sat by Pulse 98 96 Oximetry 03/25/16 03/25/16 03/25/16 20:00 20:24 23:19 Temperature 98.5 F Pulse Rate 68 Respiratory 17 17 16 Rate Blood Pressure 108/46 (mmHg) O2 Sat by Pulse 97 Oximetry 03/26/16 03/26/16 03/26/16 04:56 07:35 08:00 Temperature 98.7 F 98.7 F Pulse Rate 73 73 Respiratory 16 18 18 Rate Blood Pressure 126/47 136/49 (mmHg) O2 Sat by Pulse 96 95 Oximetry Oxygen Devices in Use Now: None Appearance: Young, M, laying in bed in NAD Eyes: No Scleral Icterus Ears/Nose/Mouth/Throat: Mucous Membranes Moist Neck: NL Appearance and Movements; NL JVP Respiratory: Symmetrical Chest Expansion and Respiratory Effort, Clear to Auscultation Cardiovascular: NL Sounds; No Murmurs; No JVD, RRR Abdominal: NL Sounds; No Tenderness; No Distention Lymphatic: No Cervical Adenopathy Extremities: No Edema Skin: No Rash or Ulcers Neurological: Alert and Oriented x 3 Result Diagrams: 03/26/16 05:24 03/26/16 05:24 Additional Lab and Data: Microbiology and Other Data: Assess/Plan/Problems-Billing Assessment: 31 yo M with e/o ESRD on PD, Alport syndrome, migraines, recurrent pulm edema due to HTN emergency in the past presented with hematemesis - Patient Problems (1) Hyperkalemia Current Visit: No Comment: s/p HD on 03/23/16, the PD on night of 03/24/[address] Arana to do clearance testing as outpatient. (2) Upper GI bleed Current Visit: Yes Comment: EGD showed Griselda Cortes tear. d/w Dr. Bennett's cont Prilosec BID and soft diet. Hb slowly trending up will start Carafate for symptoms of "sore throat" (3) Accelerated secondary hypertension Current Visit: No Comment: resolved continue clonidine patch, amlodipine, verapamil, minoxidil, propranolol (4) Anemia Current Visit: No Comment: Acute due to acute GI bleed on chronic due to ESRD Hb today at 5.9. no signs of bleeding. Pt refused transfusion in consideration of possibility of developing antibodies when transplanted Pt is hemodynamically stable. No transfusion will be performed Received Venofer and Epogen (5) Leukopenia Current Visit: Yes Comment: Improving (6) DVT prophylaxis Current Visit: No Status: Chronic Priority: Low Code(s): TIM8439 - SNOMED Code(s): 333554885 Comment: Ambulate, anticoagulants contraindicated Status and Disposition: inpatient, likely d/c tomorrow
[2016-03-27 05:04] LABS: Comments Flag Yes; Hematocrit 17 % (42-52); Mean Corpuscular HGB Conc 35 g/dl (31-36); Mean Corpuscular Hemoglobin 30 pg (27-31); Mean Corpuscular Volume 86 fL (80-94); Mean Platelet Volume 8 um3 (7.4-10.4); Red Blood Count 1.95 10^6/ul (4.0-5.4); Red Cell Distribution Width 14 % (10.5-15)
[2016-03-27 05:06] LABS: White Blood Count 2.9 10^3/ul (3.5-10.8)
[2016-03-27 05:10] LABS: Hemoglobin 5.8 g/dl (14.0-18.0)
[2016-03-27] MEDS: Morphine INJ* 4 MG/ML 1 ML SYRINGE IV PRN (05:20)
[2016-03-27] MEDS: Sucralfate TAB* 1 GM PO SCH ×2 (05:25→10:44)
[2016-03-27] MEDS: Propranolol TAB* 80 MG PO SCH ×2 (08:58→13:34)
[2016-03-27] MEDS: Ropinirole TAB* 0.5 MG TAB PO SCH (08:58)
[2016-03-27] MEDS: Verapamil SR TAB* 240 MG PO SCH (08:58)
[2016-03-27] MEDS: Calcitriol CAP* 0.25 MCG PO SCH (08:58)
[2016-03-27] MEDS: amLODIPine TAB* 5 MG PO SCH (08:58)
[2016-03-27] MEDS: Sevelamer TAB* 800 MG PO SCH ×2 (08:58→12:41)
[2016-03-27] MEDS: Omeprazole CAP* 20 MG PO SCH (08:58)
[2016-03-27] MEDS: MinoXIDil TAB* 2.5 MG TAB PO SCH (08:58)
[2016-03-27] MEDS: Mupirocin 2% OINT* TUBE TOPICAL SCH (09:00)
--- NOTE | 2016-03-27 09:34 | DCNOTE ---
Patient seen this morning. Says he feels well. No issues with dinner last night. No pain. Is agreeable to transfusion. On exam, RRR, s1 and s2 present, no m/g/r, abd soft, NTND, BS+ Will plan to discharge today after 1u PRBC. Will need close follow-up with Dr. Arana.
[2016-03-27 14:35] VITALS: BP 105/31
--- NOTE | 2016-03-27 21:20 | DS ---
DISCHARGE SUMMARY: DATE OF ADMISSION: 03/22/16 DATE OF DISCHARGE: 03/27/16 PRIMARY CARE PHYSICIAN: Dr. Frey. PRINCIPAL DISCHARGE DIAGNOSES: 1. Hematemesis. 2. Acute blood loss anemia on chronic anemia. SECONDARY DIAGNOSES: 1. Alport syndrome. 2. End-stage renal disease, currently on peritoneal dialysis. 3. Hypertension. 4. Migraines. CONSULTANTS DURING HOSPITALIZATION: Ihsan Bennett MD, Gastroenterology. STUDIES DONE DURING HOSPITALIZATION: Chest x-ray. Impression: Normal chest x- ray. Abdomen and KUB. Impression: No acute diagnostic findings. Upper endoscopy. Impression: Griselda-Cortes tear. Has stopped bleeding at this moment and feeding can be resumed with soft mechanical diet. DISCHARGE MEDICATION REGIMEN: 1. Clonidine 0.3 mg patch transdermal every 7 days. 2. Verapamil 240 mg by mouth daily. 3. Sevelamer 3200 mg by mouth 3 times daily. 4. Ropinirole 0.5 mg by mouth 2 times daily. 5. Propranolol 80 mg by mouth 3 times daily. 6. Zofran 4 mg by mouth every 6 hours as needed for nausea. 7. Omeprazole 20 mg by mouth daily. 8. Minoxidil 2.5 mg by mouth 2 times daily. 9. Calcitriol 0.25 mcg by mouth daily. 10. Nephro-Clement 1 tablet by mouth daily. 11. Amlodipine 10 mg by mouth daily. 12. Mupirocin 1 application topical daily. HPI AND HOSPITAL SUMMARY: Please see the full history and physical by Marichuy Damon NP for full detail. Briefly, Mr. Soetlo is a 31-year-old male with a past medical history as above, who presented to the hospital with hematemesis. On arrival to the hospital, the patient's hemoglobin and hematocrit was stable at 9.2 and 28. He had an elevated potassium and an elevated BUN and creatinine. He was placed in the ICU. GI was consulted and as above, the patient underwent an upper endoscopy, which showed evidence of Griselda-Cortes tear. The patient's blood counts were monitored and they slowly trended down. It seems that in discussion with Dr. Siegel, the patient was wary of blood transfusion as he is waiting on a kidney transplant. He was given Epogen and Venofer at the request of Dr. Arana. His hemoglobin was monitored and remained relatively stable, although quite low. Prior to discharge, I spoke again with the patient and he was agreeable to a blood transfusion. He received 1 unit of packed red blood cells and the patient can get his blood counts rechecked as an outpatient. He felt well and is ambulating up and down the hallway with no issues and tolerating a diet. The patient will be discharged to home to follow up with his PCP and Dr. Arana as an outpatient. TIME SPENT: Total time spent on this discharge was 35 minutes. This is a summary of the hospitalization. Please see the full medical record for further details. CC: Dr. Frey; Dr. Arana* [id number]/CPS #: [id number] MTDD
== END 2016-03-27 16:00 | disposition home or self-care (01) | DRG 242 ==
LOC: ED 11:29 → ICU 14:07 → MED 03-25 10:23
PROVIDERS: ADMIT Internal Medicine; ATTEND Hospitalist
PROC: 30233N1 Transfusion of Nonautologous Red Blood Cells into Peripheral Vein, Percutaneous Approach (ICD-10-PCS; principal; 2016-03-22)
PROC: 3E1M39Z Irrigation of Peritoneal Cavity using Dialysate, Percutaneous Approach (ICD-10-PCS; 2016-03-22)
PROC: 0DB68ZX Excision of Stomach, Via Natural or Artificial Opening Endoscopic, Diagnostic (ICD-10-PCS; 2016-03-22)
PROC: 5A1D60Z (ICD-10-PCS; 2016-03-22)
DX: K22.6 Gastro-esophageal laceration-hemorrhage syndrome (principal); N18.6 End stage renal disease; D61.818 Other pancytopenia; Z94.0 Kidney transplant status; D62 Acute posthemorrhagic anemia; Q87.81 Alport syndrome; Z88.5 Allergy status to narcotic agent; Z86.711 Personal history of pulmonary embolism; K21.9 Gastro-esophageal reflux disease without esophagitis; H91.90 Unspecified hearing loss, unspecified ear; I12.9 Hypertensive chronic kidney disease with stage 1 through stage 4 chronic kidney disease, or unspecified chronic kidney disease; G43.909 Migraine, unspecified, not intractable, without status migrainosus; F32.9 Major depressive disorder, single episode, unspecified; Z87.891 Personal history of nicotine dependence; Z99.2 Dependence on renal dialysis; E87.5 Hyperkalemia; Z82.49 Family history of ischemic heart disease and other diseases of the circulatory system; Z82.3 Family history of stroke; D63.1 Anemia in chronic kidney disease
CPT/HCPCS: 36415; 71010; 74000; 80048; 80053; 82150; 82272; 82607; 82746; 83540; 83550; 83690; 83735; 85014; 85018; 85025; 85060; 85610; 85730; 86140; 86850; 86900; 86901; 86922; 87077; 90935; 90945; 93005; 94640; 94760; A9270-GY; G0257; J0610; J0885; J1756; J2250; J2270; J2354; J2405; J3010; P9040

== ENCOUNTER 2016-04-09 05:39 | Emergency (ER) | payer BC ==
[2016-04-09] MEDS ORDERED: Ondansetron INJ* 2 MG/ML VIAL IV ONE (06:15)
[2016-04-09] MEDS ORDERED: HYDROmorphone INJ* 1 MG/ML CARPUJECT SYRINGE IV ONE ×2 (06:15→08:23)
[2016-04-09 06:19] VITALS: BP 190/122
[2016-04-09 06:43] LABS: Albumin 3.6 g/dL (3.2-5.2); BUN/Creatinine Ratio 3.9 (8-20); Calcium 9.6 mg/dL (8.6-10.3); EGFR African American 4.1 (>60); EGFR Non-African American 3.2 (>60); Globulin 2.5 g/dL (2-4); Hematocrit 28 % (42-52); Hemoglobin 9.1 g/dl (14.0-18.0); Magnesium 2.4 mg/dL (1.9-2.7); Mean Corpuscular HGB Conc 33 g/dl (31-36); Mean Corpuscular Hemoglobin 29 pg (27-31); Mean Corpuscular Volume 88 fL (80-94); Mean Platelet Volume 7 um3 (7.4-10.4); Phosphorus 5.1 mg/dL (2.5-5.0); Potassium 4.9 mmol/L (3.5-5.0); Red Blood Count 3.13 10^6/ul (4.0-5.4); Red Cell Distribution Width 17 % (10.5-15); Total Bilirubin 0.7 mg/dL (0.2-1.0); Total Protein 6.1 g/dL (6.4-8.9); White Blood Count 3.6 10^3/ul (3.5-10.8)
--- NOTE | 2016-04-09 08:47 | ED ---
Wayne Alejandro Benjamin, scribed for Michael Byrnes MD on 04/09/16 at 0735 . Headache - HPI Summary HPI Summary: 31yo male c/o migraine like TEIXEIRA around midnight yesterday with N/V. Pt has hx of migraines. Pt is hx of alports syndrome and chronic HTN. - History Of Current Complaint Chief Complaint: EDHeadache Stated Complaint: VOMITING/MIGRAINE Time Seen by Provider: 04/09/16 06:10 Hx Obtained From: Patient Onset/Duration: Sudden Onset, Started hours ago, Still Present Initially Headache Was: Moderate Currently Pain Is: Moderate Timing: Constant Character: Migraine Location of Headache: Diffuse Aggravating Factor: Nothing Allevating Factors: Nothing Associated Signs And Symptoms: Nausea, Vomiting - Allergies/Home Medications Allergies/Adverse Reactions: Allergies Allergy/AdvReac Type Severity Reaction Status Date / Time Hydrocodone [From Vicodin] AdvReac Intermediate TWITCHING Verified 03/22/16 11: 45 PMH/Surg Hx/FS Hx/Imm Hx Endocrine/Hematology History: Reports: Hx Anticoagulant Therapy, Hx Blood Transfusions - February 2016, Hx Anemia Denies: Hx Blood Disorders, Hx Bone Marrow Disease, Hx Diabetes, Hx Systemic Lupus Erythematosus, Hx Sickle Cell Disease, Hx Thyroid Disease, Hx Unexplained Bleeding, Other Endocrine/Hematological Disorders Cardiovascular History: Reports: Hx Embolism - PE, Hx Hypertension - ON MEDS, Other Cardiovascular Problems/Disorders - RT.KIDNEY TRANSPLANT FAILED AND REMOVED/DIALYSIS M-W- Denies: Hx Aneurysm, Hx Angina, Hx Angioplasty, Hx Auto Implanted Cardiovert Defib, Hx Cardiac Arrest, Hx Cardiomegaly, Hx Congenital Heart Disease, Hx Congestive Heart Failure, Hx Coronary Artery Disease, Hx Deep Vein Thrombosis, Hx Hypercholesterolemia, Hx Hypotension, Hx Pacemaker/ICD, Hx Peripheral Vascular Disease, Hx Rheumatic Fever, Hx Syncope, Hx Valvular Heart Disease Respiratory History: Reports: Other Respiratory Problems/Disorders - 3 spontaneous pneumo's in past one fixed with bovine Denies: Hx Asthma, Hx Chronic Bronchitis, Hx Chronic Obstructive Pulmonary Disease (COPD), Hx Cystic Fibrosis, Hx Lung Cancer, Hx Pleural Effusion, Hx Pneumonia, Hx Pulmonary Edema, Hx Pulmonary Embolism, Hx Seasonal Allergies, Hx Sleep Apnea GI History: Denies: Hx Cirrhosis, Hx Crohn's Disease, Hx Diverticulosis, Hx Gall Bladder Disease, Hx Gastroesophageal Reflux Disease, Hx Gastrointestinal Bleed, Hx Hiatal Hernia, Hx Irritable Bowel, Hx Jaundice, Hx Obstructive Bowel, Hx Ileostomy, Hx Pyloric Stenosis, Hx Ulcer, Other GI Disorders History: Reports: Hx Acute Renal Failure, Hx Chronic Renal Failure, Hx Dialysis, Hx Renal Disease - TRANSPLANT - RT, dialysis every Mon., Wed., Fri., Other Problems/Disorders - ALPORTS SYNDROME Denies: Hx Benign Prostatic Hyperplasia, Hx Kidney Infection, Hx Kidney Stones Musculoskeletal History: Denies: Hx Arthritis, Hx Back Problems, Hx Bursitis, Hx Congenital Bone Abnormalities, Hx Fibromyalgia, Hx Gout, Hx Orthopedic Injury, Hx Osteoporosis, Hx Scoliosis, Hx Tendonitis, Other Musculoskeletal History Sensory History: Reports: Hx Deafness, Hx Hearing Aid - never wears, Hx Hearing Problem - moderate hearing loss bilat ears Denies: Hx Cataracts, Hx Contacts or Glasses, Hx Eye Injury, Hx Eye Prosthesis, Hx Glaucoma, Hx Legally Blind, Hx Macular Degeneration, Hx Vision Problem, Other Sensory Impairments Opthamlomology History: Denies: Hx Cataracts, Hx Contacts or Glasses, Hx Eye Injury, Hx Eye Prosthesis, Hx Glaucoma, Hx Legally Blind, Hx Macular Degeneration, Hx Vision Problem, Other Sensory Impairments Neurological History: Reports: Hx Headaches, Hx Migraine - 1-2 PER MONTH Denies: Hx Dementia, Hx Developmental Delay, Hx Nerve Disease, Hx Seizures, Hx Spinal Cord Injury, Hx Transient Ischemic Attacks (TIA), Other Neuro Impairments/Disorders Psychiatric History: Reports: Hx Depression Denies: Hx Anxiety, Hx Attention Deficit Hyperactivity Disorder, Hx Eating Disorder, Hx Panic Disorder, Hx Post Traumatic Stress Disorder, Hx Inpatient Treatment, Hx Community Mental Health Tx, Hx Schizophrenia, Hx Bipolar Disorder , Hx Suicide Attempt, Hx of Violent Episodes Against Others, Hx Substance Abuse , Other Psychiatric Issues/Disorders - Cancer History Hx Chemotherapy: No Hx Radiation Therapy: No Hx Palliative Cancer Treatment: No - Surgical History Surgery Procedure, Year, and Place: 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[place], [place]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; LEFT LUNG SX FOR REPAIR; LEFT ARM FISTULA FOR DIALISYS 2016, RIGHT CHEST WALL CATH FOR DIALYSIS; RIGHT NEPHRECTOMY - kidney rejected, 2016 Hx Anesthesia Reactions: No - Immunization History Date of Tetanus Vaccine: Unk Date of Influenza Vaccine: Fall 2014 Infectious Disease History: Denies: Hx Hepatitis, Hx of Known/Suspected MRSA, Hx Shingles, Hx Tuberculosis, History Other Infectious Disease, Traveled Outside the [place] in Last 30 Days - Family History Known Family History: Positive: None, Other - mother carrier of alport disease gene Negative: Blood Disorder - Social History Alcohol Use: None Alcohol Amount: once per month before getting sick in February Hx Substance Use: No Substance Use Type: Reports: None Hx Tobacco Use: Yes Smoking Status (MU): Former Smoker Type: Cigarettes Amount Used/How Often: PACK A DAY Have You Smoked in the Last Year: No Review of Systems Constitutional: Negative Eyes: Negative ENT: Negative Cardiovascular: Negative Respiratory: Negative Positive: Vomiting, Nausea Genitourinary: Negative Musculoskeletal: Negative Skin: Negative Positive: Headache Psychological: Normal All Other Systems Reviewed And Are Negative: Yes Physical Exam Triage Information Reviewed: Yes Vital Signs On Initial Exam: Initial Vitals Temp Pulse Resp BP Pulse Ox 97.8 F 74 18 190/122 100 04/09/16 06:18 04/09/16 06:18 04/09/16 06:18 04/09/16 06:18 04/09/16 06:18 Vital Signs Reviewed: Yes Appearance: Positive: Pain Distress - moderate pain distress Skin: Positive: Warm, Skin Color Reflects Adequate Perfusion, Dry Head/Face: Positive: Normal Head/Face Inspection Eyes: Positive: Normal, EOMI, MELODY ENT: Positive: Normal ENT inspection, Hearing grossly normal, Pharynx normal, TMs normal Neck: Positive: Supple, Nontender Respiratory/Lung Sounds: Positive: Clear to Auscultation, Breath Sounds Present. Negative: Rales, Rhonchi Cardiovascular: Positive: RRR. Negative: IRR, Murmur, Rub Abdomen Description: Positive: Nontender, No Organomegaly, Soft Bowel Sounds: Positive: Present Musculoskeletal: Positive: Normal, Strength/ROM Intact Neurological: Positive: Normal - no focal neurological deficits, Sensory/Motor Intact, Alert, Oriented to Person Place, Time, CN Intact II-III Psychiatric: Positive: Normal, Affect/Mood Appropriate Diagnostics - Vital Signs Vital Signs Temp Pulse Resp BP Pulse Ox 04/09/16 06:27 18 04/09/16 06:18 97.8 F 74 18 190/122 100 - Laboratory Lab Results: Lab Results 04/09/16 04/09/16 Range/Units 06:00 06:00 WBC 3.6 (3.5-10.8) 10^3/ul RBC 3.13 L (4.0-5.4) 10^6/ul Hgb 9.1 L (14.0-18.0) g/dl Hct 28 L (42-52) % MCV 88 (80-94) fL MCH 29 (27-31) pg MCHC 33 (31-36) g/dl RDW 17 H (10.5-15) % Plt Count 219 (150-450) 10^3/ul MPV 7 L (7.4-10.4) um3 Neut % (Auto) 67.2 (38-83) % Lymph % (Auto) 15.3 L (25-47) % Churchill % (Auto) 7.6 (1-9) % Eos % (Auto) 6.6 H (0-6) % Baso % (Auto) 3.3 H (0-2) % Absolute Neuts (auto) 2.4 (1.5-7.7) 10^3/ul Absolute Lymphs (auto) 0.6 L (1.0-4.8) 10^3/ul Absolute Monos (auto) 0.3 (0-0.8) 10^3/ul Absolute Eos (auto) 0.2 (0-0.6) 10^3/ul Absolute Basos (auto) 0.1 (0-0.2) 10^3/ul Absolute Nucleated RBC 0.02 10^3/ul Nucleated RBC % 0.6 Sodium 133 (133-145) mmol/L Potassium 4.9 (3.5-5.0) mmol/L Chloride 93 L (101-111) mmol/L Carbon Dioxide 31 (22-32) mmol/L Anion Gap 9 (2-11) mmol/L BUN 70 H (6-24) mg/dL Creatinine 17.87 H (0.67-1.17) mg/dL Est GFR ( Amer) 4.1 (>60) Est GFR (Non-Af Amer) 3.2 (>60) BUN/Creatinine Ratio 3.9 L (8-20) Glucose 116 H (70-100) mg/dL Calcium 9.6 (8.6-10.3) mg/dL Phosphorus 5.1 H (2.5-5.0) mg/dL Magnesium 2.4 (1.9-2.7) mg/dL Total Bilirubin 0.70 (0.2-1.0) mg/dL AST 16 (13-39) U/L ALT 12 (7-52) U/L Alkaline Phosphatase 41 (34-104) U/L Total Protein 6.1 L (6.4-8.9) g/dL Albumin 3.6 (3.2-5.2) g/dL Globulin 2.5 (2-4) g/dL Albumin/Globulin Ratio 1.4 (1-3) Result Diagrams: 04/09/16 06:00 04/09/16 06:00 Lab Statement: Any lab studies that have been ordered have been reviewed, and results considered in the medical decision making process. Headache Course/Dx - Course Assessment/Plan: TEIXEIRA IMPROVED IN ED. DISCUSSED LAB RESULTS WITH PATIENT/MOTHER. DISCHARGE HOME STABLE. - Diagnoses Provider Diagnoses: Headache, Vomiting Discharge - Discharge Plan Condition: Stable Disposition: HOME Prescriptions: traMADol TAB* [Ultram*] 50 mg PO Q6HR PRN #10 tab MDD 4 PRN Reason: Headache/Pain Patient Education Materials: General Headache (ED), Acute Nausea and Vomiting ( ED) Referrals: Christa Frey MD [Primary Care Provider] - Additional Instructions: FOLLOW UP WITH YOUR DOCTOR. RETURN TO THE EMERGENCY DEPARTMENT FOR ANY WORSENING OF YOUR CONDITION OR QUESTIONS OR CONCERNS. The documentation as recorded by the Wayne florence Benjamin accurately reflects the service I personally performed and the decisions made by , Michael Byrnes MD.
== END 2016-04-09 09:40 | disposition home or self-care (01) ==
LOC: ED 05:39
DX: R51 Headache (principal); R11.10 Vomiting, unspecified; Z87.891 Personal history of nicotine dependence; I10 Essential (primary) hypertension; Q87.81 Alport syndrome; Z86.711 Personal history of pulmonary embolism; Z88.5 Allergy status to narcotic agent; Z90.5 Acquired absence of kidney
CPT/HCPCS: 36415; 80053; 83735; 84100; 85025; 96374; 96375; 96376; 99282; J1170; J2405

== ENCOUNTER 2016-05-11 15:22 | Inpatient (IN) | payer BC, MEDICARE ==
[2016-05-11] MEDS ORDERED: Aspirin Low Dose CHEW TAB* 81 MG PO ONE (15:56)
[2016-05-11] MEDS ORDERED: Labetalol IV* 5 MG/ML 20 ML VIAL IV PUSH ONE (15:56)
[2016-05-11] MEDS ORDERED: diPHENhydraMINE IV* 50 MG in NS 0.9% 50 ML* 50 ML IVPB ONE (15:59)
[2016-05-11] MEDS ORDERED: Metoclopramide IV* 5 MG/ML 2 ML VIAL IV ONE (15:59)
[2016-05-11] MEDS ORDERED: diPHENhydraMINE IV* 50 MG/ML 1 ml VIAL (BENADRYL) ONE (16:32)
--- NOTE | 2016-05-11 17:23 | RAD ---
INDICATION: Shortness of breath. COMPARISON: Comparison is made with a prior chest x-ray study from March 22 2016. TECHNIQUE: A portable view of the chest was obtained. FINDINGS: The heart appears slightly prominent for this portable exam. The lungs are clear. No pleural effusion is seen. IMPRESSION: MILD CARDIOMEGALY.
[2016-05-11 17:41] LABS: Hematocrit 27 % (42-52); Hemoglobin 8.8 g/dl (14.0-18.0); Mean Corpuscular HGB Conc 33 g/dl (31-36); Mean Corpuscular Hemoglobin 29 pg (27-31); Mean Corpuscular Volume 88 fL (80-94); Mean Platelet Volume 8 um3 (7.4-10.4); Red Blood Count 3.03 10^6/ul (4.0-5.4); Red Cell Distribution Width 16 % (10.5-15); White Blood Count 5.3 10^3/ul (3.5-10.8)
[2016-05-11 17:54] LABS: ALT 22 U/L (7-52); Albumin 3.7 g/dL (3.2-5.2); Alkaline Phosphatase 55 U/L (34-104); BUN/Creatinine Ratio 4.7 (8-20); Blood Urea Nitrogen 84 mg/dL (6-24); CO2 Carbon Dioxide 24 mmol/L (22-32); Chloride 93 mmol/L (101-111); EGFR African American 4.1 (>60); EGFR Non-African American 3.2 (>60); Globulin 2.8 g/dL (2-4); Glucose 79 mg/dL (70-100); Sodium 127 mmol/L (133-145); Total Protein 6.5 g/dL (6.4-8.9)
[2016-05-11 17:57] LABS: Troponin I 0.02 ng/mL (<0.04)
[2016-05-11] MEDS ORDERED: hydrALAZINE IV* 20 MG/ML VIAL IV SLOW PU ONE (18:06)
[2016-05-11 18:24] LABS: TSH (Thyroid Stimulating Horm) 1.99 mcIU/mL (0.34-5.60)
[2016-05-11] MEDS ORDERED: Calcium Gluconate INJ* 1 GM in NS 0.9% 50 ML* 50 ML IVPB ONE (18:45)
[2016-05-11] MEDS ORDERED: Insulin REGULAR(*) 1 UNITS UNIT IV PUSH ONE (18:45)
[2016-05-11] MEDS ORDERED: Sodium Polystyrene RECTAL* 30 GM/120 ML RECTAL.SUS PR ONE (18:45)
[2016-05-11] MEDS ORDERED: Albuterol 2.5 MG/3 ML NEB.SOL* (0.083%) INH ONE (18:45)
[2016-05-11] MEDS ORDERED: Dextrose 50% Syringe 50 ML* 25 GM/50 ML SYRINGE IV PUSH PRN (18:47)
[2016-05-11] MEDS ORDERED: CALCIUM GLUCONATE* 1 GM/10 ML VIAL (in Pyxis) ONE (18:51)
[2016-05-11] MEDS ORDERED: Dextrose 50% Syringe 50 ML* 25 GM/50 ML SYRINGE ONE (19:01)
[2016-05-11] MEDS ORDERED: Acetaminophen TAB* 325 MG PO PRN (20:15)
[2016-05-11] MEDS ORDERED: Sodium Polystyrene ORAL.SOL* 15 GM/60 ML BTL PO ONE (20:17)
[2016-05-11] MEDS ORDERED: HYDROmorphone* 1 MG/ML 1 ML SYR IV SLOW PU PRN (20:29)
--- NOTE | 2016-05-11 20:35 | ED ---
Rashaun Alejandro Billy, scribed for Jorge Melendez MD on 05/11/16 at 1553 . Complex/Multi-Sys Presentation - HPI Summary HPI Summary: Patient is a 31 year-old male coming to [facility] for evaluation of his "typical symptoms" during migraine headaches. In addition to the headaches, he reports photophobia, nausea, vomiting, generalized weakness, and hypertension. No chest pain, although the patient reports mild SOB. Denies any fevers, chills, or neck pain. His symptoms began last night but worsened early this morning. His last dialysis treatment was yesterday. - History Of Current Complaint Chief Complaint: EDDizziness Time Seen by Provider: 05/11/16 15:41 Hx Obtained From: Patient Onset/Duration: Gradual Onset, Lasting Hours, Still Present, Worse Since - this morning Timing: Constant Severity Currently: Moderate Severity Initially: Moderate Character: Migraine Aggravating Factor(s): none Alleviating Factor(s): none Associated Signs And Symptoms: Positive: Weakness, SOB, Nausea, Vomiting, Other - hypertension, photophobia. Negative: Chest Pain, Fever - Allergies/Home Medications Allergies/Adverse Reactions: Allergies Allergy/AdvReac Type Severity Reaction Status Date / Time Hydrocodone [From Vicodin] AdvReac Intermediate TWITCHING Verified 03/22/16 11: 45 PMH/Surg Hx/FS Hx/Imm Hx Endocrine/Hematology History: Reports: Hx Anticoagulant Therapy, Hx Blood Transfusions - February 2016, Hx Anemia Cardiovascular History: Reports: Hx Embolism - PE, Hx Hypertension - ON MEDS, Other Cardiovascular Problems/Disorders - RT.KIDNEY TRANSPLANT FAILED AND REMOVED/DIALYSIS M-W-F Respiratory History: Reports: Other Respiratory Problems/Disorders - 3 spontaneous pneumo's in past one fixed with bovine History: Reports: Hx Acute Renal Failure, Hx Chronic Renal Failure, Hx Dialysis, Hx Renal Disease - TRANSPLANT - RT, dialysis every Mon., Wed., Fri., Other Problems/Disorders - ALPORTS SYNDROME Sensory History: Reports: Hx Deafness, Hx Hearing Aid - never wears, Hx Hearing Problem - moderate hearing loss bilat ears Neurological History: Reports: Hx Headaches, Hx Migraine - 1-2 PER MONTH Psychiatric History: Reports: Hx Depression - Cancer History Hx Chemotherapy: No Hx Radiation Therapy: No Hx Palliative Cancer Treatment: No - Surgical History Surgery Procedure, Year, and Place: 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[place], [place]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; LEFT LUNG SX FOR REPAIR; LEFT ARM FISTULA FOR DIALISYS 2016, RIGHT CHEST WALL CATH FOR DIALYSIS; RIGHT NEPHRECTOMY - kidney rejected, 2016 Hx Anesthesia Reactions: No - Immunization History Date of Tetanus Vaccine: Unk Date of Influenza Vaccine: Fall 2014 Infectious Disease History: No Infectious Disease History: Denies: Hx Hepatitis, Hx of Known/Suspected MRSA, Hx Shingles, Hx Tuberculosis, History Other Infectious Disease, Traveled Outside the [place] in Last 30 Days - Family History Known Family History: Positive: Other - mother carrier of alport disease gene Negative: Blood Disorder - Social History Alcohol Use: None Alcohol Amount: once per month before getting sick in February Hx Substance Use: No Substance Use Type: Reports: None Hx Tobacco Use: Yes Smoking Status (MU): Former Smoker Type: Cigarettes Amount Used/How Often: PACK A DAY Have You Smoked in the Last Year: No Review of Systems Negative: Fever, Chills Positive: Photophobia Positive: Other - HTN. Negative: Chest Pain Positive: Shortness Of Breath Positive: Vomiting, Nausea Positive: Headache, Weakness All Other Systems Reviewed And Are Negative: Yes Physical Exam - Summary Physical Exam Summary: VITAL SIGNS: Reviewed. GENERAL: Patient is a well developed and nourished male who is lying comfortable in the stretcher. Patient is not in any acute respiratory distress. HEAD AND FACE: No signs of trauma. No ecchymosis, hematomas or skull depressions. No sinus tenderness. EYES: PERRLA, EOMI x 2, No injected conjunctiva, no nystagmus. No photophobia. EARS: Hearing grossly intact. Ear canals and tympanic membranes are within normal limits. MOUTH: Oropharynx within normal limits. NECK: Supple, trachea is midline, no adenopathy, no JVD, no carotid bruit, no c- spine tenderness, neck with full ROM. No meningeal signs, no Kernig's or brudzinskis signs. CHEST: Symmetric, no tenderness at palpation LUNGS: Clear to auscultation bilaterally. No wheezing or crackles. CVS: Regular rate and rhythm, S1 and S2 present, no murmurs or gallops appreciated. ABDOMEN: Soft, non-tender. No signs of distention. No rebound no guarding, and no masses palpated. Bowel sounds are normal. EXTREMITIES: FROM in all major joints, no edema, no cyanosis or clubbing. Positive A-V fistula in the right fore arm. NEURO: Alert and oriented x 3. No acute neurological deficits. Speech is normal and follows commands. SKIN: Dry and warm Triage Information Reviewed: Yes Vital Signs On Initial Exam: Initial Vitals Temp Pulse Resp BP Pulse Ox 99.1 F 75 16 197/125 100 05/11/16 15:25 05/11/16 15:25 05/11/16 15:25 05/11/16 15:25 05/11/16 15:25 Vital Signs Reviewed: Yes Diagnostics - Vital Signs Vital Signs Temp Pulse Resp BP Pulse Ox 05/11/16 15:25 99.1 F 75 16 197/125 100 - Laboratory Lab Results: Lab Results 05/11/16 05/11/16 05/11/16 Range/Units 17:27 17:27 17:27 WBC 5.3 (3.5-10.8) 10^3/ul RBC 3.03 L (4.0-5.4) 10^6/ul Hgb 8.8 L (14.0-18.0) g/dl Hct 27 L (42-52) % MCV 88 (80-94) fL MCH 29 (27-31) pg MCHC 33 (31-36) g/dl RDW 16 H (10.5-15) % Plt Count 155 (150-450) 10^3/ul MPV 8 (7.4-10.4) um3 Neut % (Auto) 73.4 (38-83) % Lymph % (Auto) 10.7 L (25-47) % Lamoure % (Auto) 9.2 H (1-9) % Eos % (Auto) 3.9 (0-6) % Baso % (Auto) 2.8 H (0-2) % Absolute Neuts (auto) 3.9 (1.5-7.7) 10^3/ul Absolute Lymphs (auto) 0.6 L (1.0-4.8) 10^3/ul Absolute Monos (auto) 0.5 (0-0.8) 10^3/ul Absolute Eos (auto) 0.2 (0-0.6) 10^3/ul Absolute Basos (auto) 0.1 (0-0.2) 10^3/ul Absolute Nucleated RBC 0 10^3/ul Nucleated RBC % 0 Sodium 127 L (133-145) mmol/L Potassium TNP Chloride 93 L (101-111) mmol/L Carbon Dioxide 24 (22-32) mmol/L Anion Gap TNP BUN 84 H (6-24) mg/dL Creatinine 17.85 H (0.67-1.17) mg/dL Est GFR ( Amer) 4.1 (>60) Est GFR (Non-Af Amer) 3.2 (>60) BUN/Creatinine Ratio 4.7 L (8-20) Glucose 79 (70-100) mg/dL Lactic Acid 1.1 (0.5-2.0) mmol/L Calcium 10.0 (8.6-10.3) mg/dL Total Bilirubin 1.10 H (0.2-1.0) mg/dL AST TNP ALT 22 (7-52) U/L Alkaline Phosphatase 55 (34-104) U/L CK-MB (CK-2) 2.2 (0.6-6.3) ng/mL Troponin I 0.02 (<0.04) ng/mL B-Natriuretic Peptide ( - 100) pg/mL Total Protein 6.5 (6.4-8.9) g/dL Albumin 3.7 (3.2-5.2) g/dL Globulin 2.8 (2-4) g/dL Albumin/Globulin Ratio 1.3 (1-3) TSH 1.99 (0.34-5.60) mcIU/mL 05/11/16 05/11/16 Range/Units 17:27 18:20 WBC (3.5-10.8) 10^3/ul RBC (4.0-5.4) 10^6/ul Hgb (14.0-18.0) g/dl Hct (42-52) % MCV (80-94) fL MCH (27-31) pg MCHC (31-36) g/dl RDW (10.5-15) % Plt Count (150-450) 10^3/ul MPV (7.4-10.4) um3 Neut % (Auto) (38-83) % Lymph % (Auto) (25-47) % Lamoure % (Auto) (1-9) % Eos % (Auto) (0-6) % Baso % (Auto) (0-2) % Absolute Neuts (auto) (1.5-7.7) 10^3/ul Absolute Lymphs (auto) (1.0-4.8) 10^3/ul Absolute Monos (auto) (0-0.8) 10^3/ul Absolute Eos (auto) (0-0.6) 10^3/ul Absolute Basos (auto) (0-0.2) 10^3/ul Absolute Nucleated RBC 10^3/ul Nucleated RBC % Sodium (133-145) mmol/L Potassium 7.4 H* Chloride (101-111) mmol/L Carbon Dioxide (22-32) mmol/L Anion Gap BUN (6-24) mg/dL Creatinine (0.67-1.17) mg/dL Est GFR ( Amer) (>60) Est GFR (Non-Af Amer) (>60) BUN/Creatinine Ratio (8-20) Glucose (70-100) mg/dL Lactic Acid (0.5-2.0) mmol/L Calcium (8.6-10.3) mg/dL Total Bilirubin (0.2-1.0) mg/dL AST 14 ALT (7-52) U/L Alkaline Phosphatase (34-104) U/L CK-MB (CK-2) (0.6-6.3) ng/mL Troponin I (<0.04) ng/mL B-Natriuretic Peptide 1288 H ( - 100) pg/mL Total Protein (6.4-8.9) g/dL Albumin (3.2-5.2) g/dL Globulin (2-4) g/dL Albumin/Globulin Ratio (1-3) TSH (0.34-5.60) mcIU/mL Result Diagrams: 05/11/16 17:27 05/11/16 18:20 Lab Statement: Any lab studies that have been ordered have been reviewed, and results considered in the medical decision making process. - Radiology CXR Radiology Interpretation Completed By: Radiologist - Mild cardiomegaly. - EKG 1541 Cardiac Rate: NL - 74 bpm EKG Rhythm: Sinus Rhythm ST Segment: Normal EKG Interpretation: hyperacute T-waves in II, V2-V6 EKG Comparison: No Significant Change - Compared to 03/22/16 Complex Multi-Symp Course/Dx Assessment/Plan: Patient is a 31 year-old male coming to [facility] for evaluation of his "typical symptoms" during migraine headaches. In addition to the headaches, he reports photophobia, nausea, vomiting, generalized weakness, and hypertension. No chest pain, although the patient reports mild SOB. Denies any fevers, chills, or neck pain. His symptoms began last night but worsened early this morning. His last dialysis treatment was yesterday. Bloodwork shows chronic anemia, hypernatremia 127, potassium 7.4, BUN/creatinine of 84/17.8, BNP 1288. CXR shows cardiomegaly. EKG shows hyperacute T-waves which was unchanged from previous EKG. In the ED course, we obtained 2 IV accesses and placed him on a ekg monitor. He was given insulin, dextrose, calcium gluconate, kayexalate, and albuterol for his hyperkalemia. He was also given labetalol and hydralazine for his hypertensive emergency. His blood pressure at this time is 197/100. He is feeling somewhat better. At this point, we contacted the nurse who will be performing peritoneal dialysis with direction from Dr. Arana, nephrology. I discussed the case with Dr. Lima who admitted the patient to his services. The patient is critical and will be admitted to ICU services. - Diagnoses Differential Diagnoses/HQI/PQRI: Other - Migraine headache, uncontrol hypertension, Hyperkalemia, ESRD Provider Diagnoses: Hyperkalemia, ESRD (end stage renal disease), CHF exacerbation, Headache, Hypertensive emergency - Physician Notifications Discussed Care Of Patient With: Dr. Lima (hospitalist) @ 1844: physical exam and test results discussed. Dr. Lima (hospitalist) @ 1928: accepts admission. - Critical Care Time Critical Care Time: 75-104 min Discharge - Discharge Plan Condition: Critical Disposition: ADMITTED TO [facility] documentation as recorded by the Rashaun florence Billy accurately reflects the service I personally performed and the decisions made by me, Jorge Melendez MD.
[2016-05-11] MEDS: amLODIPine TAB* 5 MG PO SCH (20:51)
[2016-05-11] MEDS: Ondansetron INJ* 2 MG/ML VIAL IV PRN (20:54)
[2016-05-11] MEDS ORDERED: cloNIDine 0.3 MG PATCH* 0.3 MG/24 HR 7 DAY PATCH TRANSDERM SCH (21:00)
[2016-05-11] MEDS: MinoXIDil TAB* 2.5 MG TAB PO SCH (21:43)
[2016-05-11] MEDS: Propranolol TAB* 80 MG PO SCH (21:43)
[2016-05-11] MEDS: Verapamil SR TAB* 240 MG PO SCH (21:43)
[2016-05-11] MEDS: Sevelamer TAB* 800 MG PO SCH (21:43)
[2016-05-11] MEDS: Heparin VIAL(*) 5000 UNITS/ML VIAL (FIVE THOUSAND) SUBCUT SCH (21:43)
[2016-05-11] MEDS: Ropinirole TAB* 0.5 MG TAB PO SCH (21:43)
[2016-05-12] MEDS: HYDROmorphone* 1 MG/ML 1 ML SYR IV SLOW PU PRN ×5 (00:07→08:47)
[2016-05-12 00:44] LABS: BUN/Creatinine Ratio 4.8 (8-20); Calcium 9.3 mg/dL (8.6-10.3); EGFR African American 4.2 (>60); EGFR Non-African American 3.3 (>60)
[2016-05-12 00:45] LABS: Potassium 6.8 mmol/L (3.5-5.0)
[2016-05-12] MEDS ORDERED: Sodium Polystyrene ORAL.SOL* 15 GM/60 ML BTL PO ONE ×2 (00:46→14:45)
--- NOTE | 2016-05-12 02:37 | HP ---
HISTORY AND PHYSICAL: DATE OF ADMISSION: 05/11/16 PRIMARY CARE PROVIDER: Dr. Arana. ATTENDING PHYSICIAN WHILE IN THE HOSPITAL: Dr. Katharine Mccarty *(report dictated by Kirstin Sparrow NP) CHIEF COMPLAINT: 1. Headache. 2. Nausea. 3. Vomiting. HISTORY OF PRESENT ILLNESS: Mr. Sotelo is a 31-year-old male patient, who carries a history of Alport syndrome, status post failed kidney transplant; anemia; migraines; hypertension; he is on peritoneal dialysis. He comes in today, said he woke up this morning, he was aching all over. He was not feeling good. He had a headache, typical of his other migraines. He started out having floaters and then he started developing a migraine, he tried taking some medications at home, but he got nauseous and he vomited and the pain got progressively worse throughout the day, so he decided to come into the ER. He also states unfortunately, he tried taking his blood pressure meds as they were prescribed and he vomited these up, related to having the headache. He says this is typical of his migraine and he says he noted today differently that he has been aching all over, he has not been feeling good. He has been feeling weak and tired. To his knowledge, he has not had any fevers or any recent sick contacts. There is no chest pain or any abdominal pain. He says he feels sightly more short of breath than at baseline. He was concerned, came in to the ER. He was evaluated. Labs were checked, it was noted he was hyperkalemic. In addition to this, now his blood pressure is running in the 200s systolically. Hospitalist service was asked to evaluate for admission. PAST MEDICAL HISTORY: Significant for: 1. Alport syndrome, status post failed kidney transplant. 2. Migraines. 3. Hypertension. 4. Anemia of chronic disease. PAST SURGICAL HISTORY: 1. He has had a kidney transplant with removal. 2. He has had a PD catheter placement. 3. He has had an AV fistula placed in his left arm. HOME MEDICATIONS: He says that they have not changed since his discharge in March of this year, they include: 1. Clonidine patch 0.3 mg transdermal every 7 days. 2. Verapamil 240 mg p.o. daily. 3. Sevelamer 3200 mg p.o. 3 times a day. 4. Ropinirole 0.5 mg by mouth 2 times a day. 5. Propranolol 80 mg p.o. t.i.d. 6. Zofran 4 mg every 6 hours as needed for nausea. 7. Omeprazole 20 mg p.o. daily. 8. Minoxidil 2.5 mg by mouth 2 times a day. 9. Calcitriol 0.25 mcg p.o. daily. 10. Nephro-Clement 1 tablet p.o. daily. 11. Amlodipine 10 mg by mouth daily. 12. Mupirocin 1 application topically daily. ALLERGIES RO MEDICATIONS: Include HYDROCODONE. FAMILY HISTORY: His mother has Alport syndrome. Father's history reviewed and noncontributory. SOCIAL HISTORY: He does not smoke, does not drink alcohol. Surrogate decision maker is his mother and sister. REVIEW OF SYSTEMS: There is no documented fever. He denied having any significant weight change. There was no double vision. There is no ear discharge. He denies having any rhinorrhea. He does admit to having a sore throat. No thyroid enlargement. Denies having any chest pain. There is no orthopnea, no nocturnal dyspnea. There is no abdominal pain. There was nausea and there was vomiting. No dysuria, no frequency. No loss of consciousness. No pruritus and no skin ulcerations. Review of 14 systems completed, all others negative. PHYSICAL EXAMINATION GENERAL: At this time, Mr. Sotelo is a 31-year-old male patient. He is sitting in the ER stretcher. He does not appear to be in any acute distress. VITAL SIGNS: Reveals blood pressure initially of 211/117, pulse is 80, respirations 14, and O2 sat 97%. His temperature now is 100.8, his blood pressure now is 180/70. HEENT: Head: Atraumatic and normocephalic. Eyes: Sclerae are anicteric, not pale. Throat: Oral mucosa appears to be dry. No oropharyngeal erythema. NECK: Supple. LUNGS: Clear to auscultation bilaterally. No wheezes, rales, or rhonchi. HEART: Sounds S1 and S2. Regular rate and rhythm. No murmurs, rubs, or gallops. ABDOMEN: Soft, flat, and nontender. Bowel sounds present. He has a PD catheter. The site appeared to be clean, dry, and intact. There was no erythema or discharge noted around the site. EXTREMITIES: Pulses were 2+ throughout. He was able to move all 4 extremities with 5/5 strength. NEUROLOGIC: He is awake, he is alert, he is oriented x3. His tongue is midline. He is drowsy. His shoe patternmaker are equal. He has no gross focal deficits. SKIN: Intact. DIAGNOSTIC STUDIES/LAB DATA: Today revealed WBC of 5.3, RBC of 3.03, hemoglobin 8.8, hematocrit 27, and platelet count of 155. Potassium 7.4; sodium 127, he is right around 130; his BUN was 84; creatinine was 17.85, which is near his baseline; his glucose was 79; lactate 1.1; calcium 10. Total bili 1.1, AST 14, ALT 22, alk phos 55. CK 3.2. Troponin 0.02. BNP at 1288. Albumin 3.7. TSH 1.99. He had a chest x-ray obtained today that showed mild cardiomegaly. EKG obtained today shows normal sinus rhythm with a rate of 74. He had diffuse peak T wave which is new, but no other significant findings were noted. He had LVH as well. It was reviewed to his last EKG, with hyperkalemia, it is similar. Old medical records were reviewed. ASSESSMENT AND PLAN: Mr. Sotelo is a 31-year-old male patient with multiple medical problems coming into the ER today with complaints of headache and nausea and vomiting, on evaluation was found to be mildly febrile. He will be admitted under inpatient status for: 1. Hyperkalemia. At this point, he has been treated in the ER with calcium gluconate. He has also been treated with Kayexalate. He has also been treated with insulin, and PD nurse is on the way in to evaluate the patient for dialysis and Dr. Arana's orders will followed. In addition to this, the patient was given insulin and D50. We will repeat his BMP in about [address] him in the ICU. We will monitor him closely on telemetry and we will continue to follow. 2. Hypertensive urgency. Again, he does have a headache, but I suspect that he had a migraine. He vomited, his pills came up and I suspect this is why his blood pressure is now so high. His blood pressure is coming down. It was in the 200 systolically, now it is 180. I would like to get into the 140 to 160 range and I will continue to follow and I ordered p.r.n. hydralazine if this does not work. 3. Fever. Again, he was complaining of body aches and headache with nausea and vomiting. I am concerned that he may have a flu. Chest x-ray was negative. We will try to get blood cultures as well. We will follow him, not giving him antibiotics at this point, and I will continue to monitor him. 4. End-stage renal disease. Again, PD nurses have been contacted. They will be coming to see the patient. 5. Migraines. Continue meds as prescribed. 6. DVT prophylaxis. He is high risk, place him on heparin subcu. 7. Code status. Full code. 8. Fluids, electrolytes, and nutrition. He can have a renal diet. TIME SPENT: On admission is 60 minutes, greater than half the time was spent face- to-face with the patient obtaining history and physical, other half the time spent going over the plan of care with the patient and implementing the plan of care. I did discuss the plan of care with my attending, Dr. Mccarty; she is in agreement. KIRSTIN SPARROW NP CC: Dr. Arana* [id number]/CPS #: [id number] MTDD
[2016-05-12] MEDS: Heparin VIAL(*) 5000 UNITS/ML VIAL (FIVE THOUSAND) SUBCUT SCH ×3 (05:05→21:19)
[2016-05-12] MEDS: Ondansetron INJ* 2 MG/ML VIAL IV PRN ×2 (05:42→14:35)
[2016-05-12 05:43] LABS: Hematocrit 24 % (42-52); Hemoglobin 7.9 g/dl (14.0-18.0); Mean Corpuscular HGB Conc 33 g/dl (31-36); Mean Corpuscular Hemoglobin 29 pg (27-31); Mean Corpuscular Volume 87 fL (80-94); Mean Platelet Volume 8 um3 (7.4-10.4); Red Blood Count 2.75 10^6/ul (4.0-5.4); Red Cell Distribution Width 16 % (10.5-15); White Blood Count 4.1 10^3/ul (3.5-10.8)
[2016-05-12 06:06] LABS: BUN/Creatinine Ratio 4.4 (8-20); Calcium 9.3 mg/dL (8.6-10.3); EGFR African American 4.2 (>60); EGFR Non-African American 3.3 (>60); Potassium 5.3 mmol/L (3.5-5.0)
[2016-05-12] MEDS ORDERED: HYDROmorphone* 1 MG/ML 1 ML SYR IV ONE (06:40)
[2016-05-12] MEDS: Metoclopramide IV* 5 MG/ML 2 ML VIAL IV PRN ×2 (06:51→14:35)
[2016-05-12] MEDS: MinoXIDil TAB* 2.5 MG TAB PO SCH ×2 (09:28→21:18)
[2016-05-12] MEDS: Verapamil SR TAB* 240 MG PO SCH (09:28)
[2016-05-12] MEDS: Omeprazole CAP* 20 MG PO SCH (09:28)
[2016-05-12] MEDS: Propranolol TAB* 80 MG PO SCH ×3 (09:28→21:18)
[2016-05-12] MEDS: amLODIPine TAB* 5 MG PO SCH (09:28)
[2016-05-12] MEDS: Sevelamer TAB* 800 MG PO SCH ×3 (09:28→21:19)
[2016-05-12] MEDS: Calcitriol CAP* 0.25 MCG PO SCH (09:29)
[2016-05-12] MEDS: Ropinirole TAB* 0.5 MG TAB PO SCH ×2 (09:33→21:19)
[2016-05-12] MEDS: hydrALAZINE IV* 20 MG/ML VIAL IV SLOW PU PRN ×2 (10:05→16:52)
--- NOTE | 2016-05-12 10:06 | PN ---
Subjective Date of Service: 05/12/16 Interval History: This is a 31 yo gentleman with a h/o of Alport syndrome with ESRD, HTN, chronic anemia and migraine syndrome who presented with complaints of TEIXEIRA, n/v and generalized aching. He was severely hyperkalemic and hypertensive at home. He was unable to tolerate his home antihypertensives. He has been treated with Dilaudid for his headache and able to take most of his oral antihypertensives last night. He reports no change to his PD regimen or home diet. He has had a recent URI, but no other acute changes. No changes to home medications. This am he reports the Dilaudid helps make his TEIXEIRA tolerable for ~ 1h and then his pain with build again. He reports his head pain is diffuse. He is very light sensitive. Nausea is worse when the pain resumes, without the pain he is not nauseous. He did receive his oral antihypertensives this and has not vomited since. Objective Active Medications: Acetaminophen (Tylenol Tab*) 650 mg PO Q4H PRN PRN Reason: FEVER/PAIN Last Admin: 05/11/16 20:52 Dose: 650 mg Amlodipine Besylate (Norvasc Tab*) 10 mg PO DAILY [facility] Last Admin: 05/12/16 09:28 Dose: 10 mg Calcitriol (Rocaltrol Cap*) 0.25 mcg PO DAILY [facility] Last Admin: 05/12/16 09:29 Dose: 0.25 mcg Clonidine HCl (Qjaezjzq-Yrp-4 0.3 Mg Patch*) 0.3 mg TRANSDERM Q7D [facility] Last Admin: 05/11/16 21:42 Dose: 0.3 mg Dextrose (D50w Syringe 50 Ml*) 25 gm IV PUSH ONCE PRN PRN Reason: hyperkalemia Last Admin: 05/11/16 19:03 Dose: 25 gm Heparin Sodium (Porcine) (Heparin Vial(*)) 5,000 units SUBCUT Q8HR [facility] Last Admin: 05/12/16 05:05 Dose: 5,000 units Hydralazine HCl (Apresoline Iv*) 5 mg IV SLOW PU Q6H PRN PRN Reason: BLOOD PRESSURE Metoclopramide HCl (Reglan Iv*) 5 mg IV Q6H PRN PRN Reason: NAUSEA/VOMITING Last Admin: 05/12/16 06:51 Dose: 5 mg Minoxidil (Loniten Tab*) 2.5 mg PO BID [facility] Last Admin: 05/12/16 09:28 Dose: 2.5 mg Morphine Sulfate (Morphine Inj (Syringe)*) 4 mg IV Q2H PRN PRN Reason: PAIN Mupirocin (Bactroban 2 % Oint*) 1 applic TOPICAL DAILY [facility] Omeprazole (Prilosec Cap*) 20 mg PO DAILY [facility] Last Admin: 05/12/16 09:28 Dose: 20 mg Ondansetron HCl (Zofran Inj*) 4 mg IV Q6H PRN PRN Reason: NAUSEA Last Admin: 05/12/16 05:42 Dose: 4 mg Propranolol HCl (Inderal Tab*) 80 mg PO TID [facility] Last Admin: 05/12/16 09:28 Dose: 80 mg Ropinirole HCl (Requip Tab*) 0.5 mg PO BID [facility] Last Admin: 05/12/16 09:33 Dose: 0.5 mg Sevelamer Carbonate (Renvela Tab*) 3,200 mg PO TID [facility] Last Admin: 05/12/16 09:28 Dose: 3,200 mg Verapamil HCl (Calan Sr Tab*) 240 mg PO DAILY [facility] Last Admin: 05/12/16 09:28 Dose: 240 mg Vital Signs: Temp Pulse Resp BP Pulse Ox 98.3 F 80 11 195/111 93 05/12/16 08:00 05/12/16 10:00 05/12/16 10:00 05/12/16 09:55 05/12/16 10:00 Oxygen Devices in Use Now: None Appearance: Ill appearing with sunglasses on, lying in hospital bed. In NAD Neck: NL Appearance and Movements; NL JVP Respiratory: Symmetrical Chest Expansion and Respiratory Effort, Clear to Auscultation Cardiovascular: RRR, - - significant murmur throughout systolic and diastolic phase Abdominal: NL Sounds; No Tenderness; No Distention Extremities: No Edema Skin: No Rash or Ulcers Neurological: Alert and Oriented x 3 Result Diagrams: 05/12/16 05:20 05/12/16 05:20 Additional Lab and Data: Laboratory Tests 05/11/16 05/12/16 05/12/16 18:20 00:15 05:20 Potassium 7.4 H* 6.8 H* 5.3 H D Microbiology and Other Data: Microbiology 05/11/16 22:08 Group A Streptococcus Rapid Screen - Final Throat Specimen received for Rapid Strep A Molecular testing 05/11/16 20:15 Nasal Screen MRSA (PCR)(HELENA) - Final Nasal Mrsa Negative Diagnostic Imaging: CXR - mild cardiomegaly, no acute process Assess/Plan/Problems-Billing Assessment: This is a 31 yo gentleman with Alport syndrome with ESRD on PD as well as HTN, chronic anemia and migraine syndrome who presented with a severe migraine TEIXEIRA with n/v and severe hyperkalemia and hypertension. - Patient Problems (1) Hyperkalemia Comment: K 7.4 mmol/L at admission Peaked T waves, but no dysrhythmias Initially treated medically in the ED, now s/p PD treatment Repeat labs at noon after completing additional PD cycle Maintain tele (2) Hypertensive urgency Comment: Remains quite hypertensive No CP/SOB Cont c/o TEIXEIRA, but unsure how much this is being driven by his TEIXEIRA Now tolerating oral antihypertensives Use prn hydralazine Appears euvolemic at this time Cont to monitor (3) Migraine headache Comment: Medication options are limited with his renal disease and hypertension Dilaudid was providing incomplete relief Will trial using Morphine instead Cont additional supportive care measures (4) ESRD (end stage renal disease) Comment: Followed by Dr Arana PD dependent (5) Alport syndrome Status and Disposition: Patient requires continued hospital care. He may floor appropriate this afternoon. Anticipate discharge in 1-2 days.
[2016-05-12] MEDS: Morphine INJ* 4 MG/ML 1 ML SYRINGE IV PRN ×3 (10:59→15:48)
[2016-05-12] MEDS ORDERED: Epoetin Alfa* 10,000 UNITS/ML VIAL SUBCUT ONE (11:30)
[2016-05-12] MEDS: Mupirocin 2% OINT* TUBE TOPICAL SCH (12:01)
[2016-05-12 13:23] LABS: BUN/Creatinine Ratio 4.3 (8-20); Calcium 9.8 mg/dL (8.6-10.3); EGFR African American 4.3 (>60); EGFR Non-African American 3.3 (>60)
[2016-05-12 13:25] LABS: Potassium 6.7 mmol/L (3.5-5.0)
[2016-05-12] MEDS ORDERED: Insulin REGULAR(*) 1 UNITS UNIT IV PUSH ONE (13:26)
[2016-05-12] MEDS ORDERED: Dextrose 50% VIAL 50 ml IV ONE (13:27)
[2016-05-12] MEDS ORDERED: Calcium Gluconate INJ* 1 GM in NS 0.9% 50 ML* 50 ML IVPB ONE (13:30)
[2016-05-12] MEDS ORDERED: Dextrose 50% Syringe 50 ML* 25 GM/50 ML SYRINGE ONE (14:12)
[2016-05-12 15:46] LABS: Magnesium 1.7 mg/dL (1.9-2.7); Phosphorus 6.7 mg/dL (2.5-5.0)
[2016-05-12 18:47] LABS: BUN/Creatinine Ratio 4.1 (8-20); Calcium 9.8 mg/dL (8.6-10.3); EGFR African American 4.1 (>60); EGFR Non-African American 3.2 (>60); Potassium 5.1 mmol/L (3.5-5.0)
[2016-05-12] MEDS: Ketorolac INJ* 15 MG/ML 1 ML VIAL IV PUSH PRN (19:44)
[2016-05-12 21:58] LABS: BUN/Creatinine Ratio 4.2 (8-20); Calcium 9.6 mg/dL (8.6-10.3); EGFR African American 4.3 (>60); EGFR Non-African American 3.3 (>60); Potassium 5.4 mmol/L (3.5-5.0)
[2016-05-13] MEDS: Heparin VIAL(*) 5000 UNITS/ML VIAL (FIVE THOUSAND) SUBCUT SCH ×3 (05:39→21:47)
[2016-05-13 06:04] LABS: Hematocrit 24 % (42-52); Hemoglobin 8.1 g/dl (14.0-18.0); Mean Corpuscular HGB Conc 34 g/dl (31-36); Mean Corpuscular Hemoglobin 30 pg (27-31); Mean Corpuscular Volume 87 fL (80-94); Mean Platelet Volume 8 um3 (7.4-10.4); Red Blood Count 2.74 10^6/ul (4.0-5.4); Red Cell Distribution Width 16 % (10.5-15); White Blood Count 2.9 10^3/ul (3.5-10.8)
[2016-05-13 06:05] LABS: Add Diff/Slide Review? Slide Review Added; Comments Flag Yes
[2016-05-13 06:14] LABS: BUN/Creatinine Ratio 3.8 (8-20); Calcium 9.3 mg/dL (8.6-10.3); EGFR African American 4.3 (>60); EGFR Non-African American 3.4 (>60); Potassium 4.7 mmol/L (3.5-5.0)
[2016-05-13] MEDS ORDERED: Ketorolac INJ* 15 MG/ML 1 ML VIAL IV PUSH ONE (08:56)
[2016-05-13] MEDS ORDERED: Ketorolac INJ* 15 MG/ML 1 ML VIAL ONE (09:00)
[2016-05-13] MEDS: MinoXIDil TAB* 2.5 MG TAB PO SCH ×2 (10:00→21:47)
[2016-05-13] MEDS: Omeprazole CAP* 20 MG PO SCH (10:00)
[2016-05-13] MEDS: Verapamil SR TAB* 240 MG PO SCH (10:00)
[2016-05-13] MEDS: amLODIPine TAB* 5 MG PO SCH (10:00)
[2016-05-13] MEDS: Propranolol TAB* 80 MG PO SCH ×3 (10:00→21:47)
--- NOTE | 2016-05-13 10:04 | PN ---
Subjective Date of Service: 05/13/16 Interval History: Patient had a restful night. He received one dose of Toradol early in the evening and his pain was mostly relieved and he was able to get some sleep. BP is improved this am. His nausea has improved. He reports his TEIXEIRA is building again this am. Objective Active Medications: Acetaminophen (Tylenol Tab*) 650 mg PO Q4H PRN PRN Reason: FEVER/PAIN Last Admin: 05/11/16 20:52 Dose: 650 mg Amlodipine Besylate (Norvasc Tab*) 10 mg PO DAILY [facility] Last Admin: 05/12/16 09:28 Dose: 10 mg Calcitriol (Rocaltrol Cap*) 0.25 mcg PO DAILY [facility] Last Admin: 05/12/16 09:29 Dose: 0.25 mcg Clonidine HCl (Slfeuxvo-Hjz-8 0.3 Mg Patch*) 0.3 mg TRANSDERM Q7D [facility] Last Admin: 05/11/16 21:42 Dose: 0.3 mg Dextrose (D50w Syringe 50 Ml*) 25 gm IV PUSH ONCE PRN PRN Reason: hyperkalemia Last Admin: 05/11/16 19:03 Dose: 25 gm Heparin Sodium (Porcine) (Heparin Vial(*)) 5,000 units SUBCUT Q8HR [facility] Last Admin: 05/13/16 05:39 Dose: 5,000 units Hydralazine HCl (Apresoline Iv*) 5 mg IV SLOW PU Q6H PRN PRN Reason: BLOOD PRESSURE Last Admin: 05/12/16 16:52 Dose: 5 mg Ketorolac Tromethamine (Toradol Inj*) 15 mg IV PUSH ONCE PRN PRN Reason: HEADACHE Last Admin: 05/12/16 19:44 Dose: 15 mg Metoclopramide HCl (Reglan Iv*) 5 mg IV Q6H PRN PRN Reason: NAUSEA/VOMITING Last Admin: 05/12/16 14:35 Dose: 5 mg Minoxidil (Loniten Tab*) 2.5 mg PO BID [facility] Last Admin: 05/12/16 21:18 Dose: 2.5 mg Morphine Sulfate (Morphine Inj (Syringe)*) 4 mg IV Q2H PRN PRN Reason: PAIN Last Admin: 05/12/16 15:48 Dose: 4 mg Mupirocin (Bactroban 2 % Oint*) 1 applic TOPICAL DAILY [facility] Last Admin: 05/12/16 12:01 Dose: Not Given Omeprazole (Prilosec Cap*) 20 mg PO DAILY [facility] Last Admin: 05/12/16 09:28 Dose: 20 mg Ondansetron HCl (Zofran Inj*) 4 mg IV Q6H PRN PRN Reason: NAUSEA Last Admin: 05/12/16 14:35 Dose: 4 mg Propranolol HCl (Inderal Tab*) 80 mg PO TID [facility] Last Admin: 05/12/16 21:18 Dose: 80 mg Ropinirole HCl (Requip Tab*) 0.5 mg PO BID [facility] Last Admin: 05/12/16 21:19 Dose: 0.5 mg Sevelamer Carbonate (Renvela Tab*) 3,200 mg PO TID [facility] Last Admin: 05/12/16 21:19 Dose: 3,200 mg Verapamil HCl (Calan Sr Tab*) 240 mg PO DAILY [facility] Last Admin: 05/12/16 09:28 Dose: 240 mg Vital Signs: Temp Pulse Resp BP Pulse Ox 98.5 F 74 15 142/94 95 05/13/16 07:46 05/13/16 06:00 05/13/16 06:00 05/13/16 06:00 05/13/16 06:00 Oxygen Devices in Use Now: None Appearance: Improved appearing young gentleman. Sunglasses in place. In NAD Neck: NL Appearance and Movements; NL JVP Respiratory: Symmetrical Chest Expansion and Respiratory Effort Cardiovascular: RRR, - - significant murmur noted Abdominal: NL Sounds; No Tenderness; No Distention Extremities: No Edema Skin: No Rash or Ulcers Neurological: Alert and Oriented x 3 Result Diagrams: 05/13/16 05:42 05/13/16 05:42 Additional Lab and Data: Laboratory Tests 05/11/16 05/12/16 05/12/16 18:20 00:15 05:20 Potassium 7.4 H* 6.8 H* 5.3 H D Laboratory Tests 05/12/16 05/12/16 05/12/16 12:24 15:57 21:35 Potassium 6.7 H* 5.1 H D 5.4 H 05/13/16 05:42 Potassium 4.7 Microbiology and Other Data: Microbiology 05/11/16 22:08 Group A Streptococcus Rapid Screen - Final Throat Specimen received for Rapid Strep A Molecular testing 05/11/16 20:15 Nasal Screen MRSA (PCR)([facility]) - Final Nasal Mrsa Negative Diagnostic Imaging: CXR - mild cardiomegaly, no acute process Assess/Plan/Problems-Billing Assessment: This is a 31 yo gentleman with Alport syndrome with ESRD on PD as well as HTN, chronic anemia and migraine syndrome who presented with a severe migraine TEIXEIRA with n/v and severe hyperkalemia and hypertension. - Patient Problems (1) Hyperkalemia Comment: Now resolved K 7.4 mmol/L at admission Peaked T waves, but no dysrhythmias Noted recurrence of hyperkalemia yesterday, considered hemolysis as an etiology , Hgb remained stable, LDH nl, CPK nl Discussed with Dr Arana who suggested his recurrent hyperkalemia was likely due to transcellular shifts (2) Hypertensive urgency Comment: Now resolved Nearly normotensive overnight No CP/SOB Continue home antihypertensives Cont to monitor (3) Migraine headache Comment: Medication options are limited with his renal disease and hypertension Good response to Toradol last night, patient does not produce urine and is PD dependent Will trial one additional dose of Toradol Cont additional supportive care measures (4) ESRD (end stage renal disease) Comment: Followed by Dr Arana PD dependent (5) Alport syndrome Status and Disposition: Patient requires continued hospital care. He will be transferred to the floor this am. Eval for discharge later today or tomorrow.
[2016-05-13] MEDS: Mupirocin 2% OINT* TUBE TOPICAL SCH (11:24)
[2016-05-13] MEDS: Ropinirole TAB* 0.5 MG TAB PO SCH ×2 (11:24→21:47)
[2016-05-13] MEDS: Calcitriol CAP* 0.25 MCG PO SCH (11:24)
[2016-05-13] MEDS: Sevelamer TAB* 800 MG PO SCH ×3 (11:24→21:46)
[2016-05-13] MEDS: Morphine INJ* 4 MG/ML 1 ML SYRINGE IV PRN (19:24)
[2016-05-13] MEDS: Ketorolac INJ* 15 MG/ML 1 ML VIAL IV PUSH PRN (22:05)
[2016-05-14] MEDS: Heparin VIAL(*) 5000 UNITS/ML VIAL (FIVE THOUSAND) SUBCUT SCH (05:47)
[2016-05-14 07:12] LABS: BUN/Creatinine Ratio 3.3 (8-20); EGFR African American 4.2 (>60); EGFR Non-African American 3.2 (>60); Potassium 5.1 mmol/L (3.5-5.0)
[2016-05-14 07:40] VITALS: BP 138/63
[2016-05-14] MEDS: Morphine INJ* 4 MG/ML 1 ML SYRINGE IV PRN (08:00)
[2016-05-14] MEDS: amLODIPine TAB* 5 MG PO SCH (08:04)
[2016-05-14] MEDS: Sevelamer TAB* 800 MG PO SCH ×2 (08:04→12:14)
[2016-05-14] MEDS: Calcitriol CAP* 0.25 MCG PO SCH (08:05)
[2016-05-14] MEDS: Propranolol TAB* 80 MG PO SCH (08:05)
[2016-05-14] MEDS: Ropinirole TAB* 0.5 MG TAB PO SCH (08:06)
[2016-05-14] MEDS: Omeprazole CAP* 20 MG PO SCH (08:06)
[2016-05-14] MEDS: Verapamil SR TAB* 240 MG PO SCH (08:06)
[2016-05-14] MEDS: Mupirocin 2% OINT* TUBE TOPICAL SCH (08:08)
[2016-05-14] MEDS: MinoXIDil TAB* 2.5 MG TAB PO SCH (08:08)
--- NOTE | 2016-05-14 11:01 | PN ---
Subjective Date of Service: 05/14/16 Interval History: Patient seen and examined at bedside. Pt states that he continues to have a headache, he reports that he has had this headache for 5 days. He reports that overall the headache is improving. His typical headache lasts 2 days. Denies fever, chills, shortness of breath, chest discomfort, V/D. Pt reports some nausea associated with his headache. Family History: Unchanged from Admission Social History: Unchanged from Admission Past Medical History: Unchanged from Admission Objective Active Medications: Acetaminophen (Tylenol Tab*) 650 mg PO Q4H PRN Reason: FEVER/PAIN Amlodipine Besylate (Norvasc Tab*) 10 mg PO DAILY [facility] Calcitriol (Rocaltrol Cap*) 0.25 mcg PO DAILY [facility] Clonidine HCl (Juuqdszx-Rpp-3 0.3 Mg Patch*) 0.3 mg TRANSDERM Q7D [facility] Dextrose (D50w Syringe 50 Ml*) 25 gm IV PUSH ONCE PRN Reason: hyperkalemia Heparin Sodium (Porcine) (Heparin Vial(*)) 5,000 units SUBCUT Q8HR [facility] Hydralazine HCl (Apresoline Iv*) 5 mg IV SLOW PU Q6H PRN Reason: BLOOD PRESSURE Ketorolac Tromethamine (Toradol Inj*) 15 mg IV PUSH ONCE PRN Reason: HEADACHE Metoclopramide HCl (Reglan Iv*) 5 mg IV Q6H PRN Reason: NAUSEA/VOMITING Minoxidil (Loniten Tab*) 2.5 mg PO BID [facility] Morphine Sulfate (Morphine Inj (Syringe)*) 4 mg IV Q2H PRN Reason: PAIN Mupirocin (Bactroban 2 % Oint*) 1 applic TOPICAL DAILY [facility] Omeprazole (Prilosec Cap*) 20 mg PO DAILY [facility] Ondansetron HCl (Zofran Inj*) 4 mg IV Q6H PRN Reason: NAUSEA Propranolol HCl (Inderal Tab*) 80 mg PO TID [facility] Ropinirole HCl (Requip Tab*) 0.5 mg PO BID [facility] Sevelamer Carbonate (Renvela Tab*) 3,200 mg PO TID WITH MEALS [facility] Verapamil HCl (Calan Sr Tab*) 240 mg PO DAILY [facility] Vital Signs 05/13/16 05/13/16 05/13/16 11:39 15:50 19:24 Temperature 98.1 F 98.2 F 98.0 F Pulse Rate 70 69 61 Respiratory 16 16 14 Rate Blood Pressure 143/95 136/76 126/60 (mmHg) O2 Sat by Pulse 98 96 98 Oximetry 05/13/16 05/13/16 05/13/16 20:00 20:24 23:30 Temperature 97.8 F Pulse Rate 61 Respiratory 14 14 16 Rate Blood Pressure 145/75 (mmHg) O2 Sat by Pulse 98 Oximetry 05/14/16 05/14/16 05/14/16 00:00 03:52 07:21 Temperature 97.9 F 98.6 F Pulse Rate 68 68 Respiratory 16 16 Rate Blood Pressure 135/61 138/63 (mmHg) O2 Sat by Pulse 98 98 97 Oximetry Oxygen Devices in Use Now: None Appearance: NAD, laying in bed. Pt is wearing sunglasses. Eyes: No Scleral Icterus, PERRLA Ears/Nose/Mouth/Throat: NL Teeth, Lips, Gums, Mucous Membranes Moist Neck: NL Appearance and Movements; NL JVP, Trachea Midline Respiratory: Symmetrical Chest Expansion and Respiratory Effort, Clear to Auscultation Cardiovascular: RRR Abdominal: NL Sounds; No Tenderness; No Distention Extremities: No Edema Skin: No Rash or Ulcers Neurological: Alert and Oriented x 3, NL Muscle Strength and Tone Lines/Tubes/Other Access: Clean, Dry and Intact Peripheral IV - site benign Nutrition: Taking PO's Result Diagrams: 05/13/16 05:42 05/14/16 06:38 Additional Lab and Data: Laboratory Tests 05/11/16 05/12/16 05/12/16 18:20 00:15 05:20 Potassium 7.4 H* 6.8 H* 5.3 H D Laboratory Tests 05/12/16 05/12/16 05/12/16 12:24 15:57 21:35 Potassium 6.7 H* 5.1 H D 5.4 H 05/13/16 05:42 Potassium 4.7 Microbiology and Other Data: Microbiology 05/11/16 22:08 Group A Streptococcus Rapid Screen - Final Throat Specimen received for Rapid Strep A Molecular testing 05/11/16 20:15 Nasal Screen MRSA (PCR)([facility]) - Final Nasal Mrsa Negative Diagnostic Imaging: CXR - mild cardiomegaly, no acute process Assess/Plan/Problems-Billing Assessment: Mr. Sotelo is a 31 yo gentleman with Alport syndrome with ESRD on PD as well as HTN, chronic anemia and migraine syndrome who presented with a severe migraine TEIXEIRA with n/v and severe hyperkalemia and hypertension. - Patient Problems (1) Hyperkalemia Code(s): E87.5 - HYPERKALEMIA SNOMED Code(s): 91695468 Comment: - K 7.4 mmol/L at admission - Peaked T waves, but no dysrhythmias - Noted recurrence of hyperkalemia 05/12, considered hemolysis as an etiology, Hgb remained stable, LDH nl, CPK nl - Discussed with Dr Arana who suggested his recurrent hyperkalemia was likely due to transcellular shifts - K 5.1 today, will give a dose of Kayexalate prior to discharge (2) Hypertensive urgency Code(s): I16.0 - HYPERTENSIVE URGENCY SNOMED Code(s): 746105221 Comment: - Now resolved - Normotensive overnight - No CP/SOB - Continue home antihypertensives (3) Migraine headache Code(s): G43.909 - MIGRAINE, UNSP, NOT INTRACTABLE, WITHOUT STATUS MIGRAINOSUS SNOMED Code(s): 81209751 Comment: - Medication options are limited with his renal disease and hypertension - Good response to Toradol, patient does not produce urine and is PD dependent - Cont additional supportive care measures - Pt has an outpatient appointment with neurology later this week (4) ESRD (end stage renal disease) Code(s): N18.6 - END STAGE RENAL DISEASE SNOMED Code(s): 23540708 Comment: - Followed by Dr Arana - PD dependent (5) Alport syndrome Code(s): Q87.81 - ALPORT SYNDROME SNOMED Code(s): 040301690 (6) DVT prophylaxis Code(s): WSK9313 - SNOMED Code(s): 904997707 (7) Full code status Code(s): Z78.9 - OTHER SPECIFIED HEALTH STATUS SNOMED Code(s): 968804320 Status and Disposition: Inpatient. Stable for discharge to home later today.
[2016-05-14] MEDS ORDERED: Sodium Polystyrene ORAL.SOL* 15 GM/60 ML BTL PO ONE (11:31)
--- NOTE | 2016-05-15 12:15 | DS ---
DISCHARGE SUMMARY: DATE OF ADMISSION: 05/11/16 DATE OF DISCHARGE: 05/14/16 ATTENDING PHYSICIAN: Parisa Figueredo MD* (dictated by Aviva Kiser NP) PRIMARY CARE PROVIDER: Christa Frey MD GERIATRIC SOCIAL WORKER: Jose De Jesus Arana MD PRIMARY DIAGNOSES: 1. Hyperkalemia. 2. Hypertensive urgency. 3. Migraine. 4. End-stage renal disease. SECONDARY DIAGNOSES: 1. Alport syndrome, status post failed kidney transplant. 2. Anemia of chronic disease. STUDIES WHILE IN THE HOSPITAL: Chest x-ray on 05/11/16. Radiologist's impression: Mild cardiomegaly. DISCHARGE MEDICATIONS: Continued home medications: 1. Omeprazole 20 mg oral daily. 2. Verapamil SR 240 mg oral daily. 3. Sevelamer 3200 mg oral 3 times a day. 4. Requip 0.5 mg oral twice daily. 5. Nephro-Clement 0.8 mg 1 tablet oral daily. 6. Mupirocin 2% ointment apply topical daily. 7. Propranolol 80 mg oral 3 times daily. 8. Calcitriol 0.25 mcg oral daily. 9. Norvasc 10 mg oral daily. 10. Minoxidil 2.5 mg oral twice daily. 11. Clonidine 0.3 mg patch, 0.3 mg transdermal every 7 days. 12. Zofran ODT 4 mg oral every 6 hours as needed for nausea. HISTORY OF PRESENT ILLNESS/HOSPITAL COURSE: Mr. Sotelo is a 31-year-old male with past medical history significant for Alport syndrome, status post failed kidney transplant; anemia; migraines; and hypertension who is on peritoneal dialysis, who presented to the emergency room after waking up with all over aches and not feeling well. The patient had a headache, which was typical of his normal migraines. The patient reports having floaters and developing a migraine. He tried to take medications at home, but became nauseous and started vomiting. This progressively got worse, so he decided to present to the emergency room for further evaluation. The patient reports trying to take his blood pressure medications from home, but vomited those up due to his headache. While in the emergency room, the patient had labs that were significant for hyperkalemia. His blood pressures were running systolically in the 200s. The patient had a chest x-ray showing a mild cardiomyopathy. Hospitalists were asked to evaluate the patient for admission. While in the hospital, the patient's hyperkalemia resolved after receiving Kayexalate. The patient also had received insulin and peritoneal dialysis. The patient was initially monitored in the intensive care unit and was then stabilized and able to be moved to the medical floor. Upon initial presentation to the emergency room, the patient was in hypertensive urgency. I suspect that due to the patient's migraine and vomiting, the patient's blood pressure was elevated due to his inability to take his medications on the day of admission. The patient reports being compliant with his medications. The patient also presented with a fever, complaining of body aches. In addition to his headache, nausea, and vomiting; there was concern that the patient may have a flu. The patient was negative for group A Strep and influenza A and B. The patient continued to do well. On the day of discharge, it is to note that he was slightly hyperkalemic. He received Kayexalate prior to discharge. The patient continued to have migraine, but this was improving from his admission. The patient's hypertension had resolved. His blood pressures were systolically in the 120s to 140s. Mr. Sotelo is stable for discharge to home today. Vital signs are as follows : Temperature 98.6, heart rate 68, respiratory rate 16, O2 sat 97% on room air, and blood pressure 138/63. DISCHARGE PLAN: Mr. Sotelo will be discharged to home. Activity as tolerated. He should be on a renal diet. As far as the patient's migraine headache, he reports being out of Zofran at home, so a prescription has been sent to the pharmacy for a refill on that. The patient also reports having an appointment with neurology later this week to evaluate his migraines. He has been encouraged to keep his appointment. The patient should followup with Dr. Arana. According to Dr. Arana's office, the patient will be having an appointment the week of May 26 and his office will call with appointment details. I also recommend monitoring the patient's potassium levels as an outpatient. The patient should see his primary care provider, Dr. Frey. He has an appointment on May 19 at 2:15 p.m. This is a summarized report of a complex medical history and hospital stay. For further details, please see the entire medical record. TIME SPENT: Time for this discharge was 50 minutes and 25 minutes was spent face- to-face with the patient, discussing discharge plans and instructions. CONDITION ON DISCHARGE: Improved. Reviewed by GOMEZ SWANSON-Edgardo 05/15/16 1815 CC: Dr. Arana; Dr. Frey * [id number]/[facility] #: [id number] MTDD
== END 2016-05-14 13:30 | disposition home or self-care (01) | DRG 425 ==
LOC: ED 15:22 → ICU 20:08 → MED 05-13 11:35
PROVIDERS: ADMIT Pediatrics; ATTEND Hospitalist
PROC: 3E1M39Z Irrigation of Peritoneal Cavity using Dialysate, Percutaneous Approach (ICD-10-PCS; principal; 2016-05-11)
DX: E87.5 Hyperkalemia (principal); N18.6 End stage renal disease; I12.0 Hypertensive chronic kidney disease with stage 5 chronic kidney disease or end stage renal disease; I42.9 Cardiomyopathy, unspecified; Q87.81 Alport syndrome; I16.0 Hypertensive urgency; G43.909 Migraine, unspecified, not intractable, without status migrainosus; D63.8 Anemia in other chronic diseases classified elsewhere; Z99.2 Dependence on renal dialysis; Z88.5 Allergy status to narcotic agent; H91.93 Unspecified hearing loss, bilateral; F32.9 Major depressive disorder, single episode, unspecified; Z84.1 Family history of disorders of kidney and ureter; Z87.891 Personal history of nicotine dependence; R50.9 Fever, unspecified; D53.9 Nutritional anemia, unspecified
CPT/HCPCS: 36415; 71010; 80048; 80053; 82550; 82553; 83010; 83605; 83615; 83735; 83880; 84100; 84443; 84484; 85025; 85610; 87040; 87502; 87641; 87651; 90945; 93005; 94640; 94760; A9270-GY; G0257; J0360; J0610; J0885; J1170; J1200; J1644; J1885; J2270; J2405

== ENCOUNTER 2016-06-09 15:10 | Observation (INO) | payer BC, MEDICARE ==
[2016-06-09] MEDS ORDERED: Ondansetron INJ* 2 MG/ML VIAL IV ONE (16:37)
[2016-06-09] MEDS ORDERED: HYDROmorphone* 1 MG/ML 1 ML SYR IV ONE (16:37)
[2016-06-09] MEDS ORDERED: Labetalol IV* 5 MG/ML 20 ML VIAL IV PUSH ONE (16:37)
[2016-06-09 17:12] LABS: Hematocrit 27 % (42-52); Mean Corpuscular HGB Conc 34 g/dl (31-36); Mean Corpuscular Hemoglobin 29 pg (27-31); Mean Corpuscular Volume 86 fL (80-94); Mean Platelet Volume 7 um3 (7.4-10.4); Red Blood Count 3.08 10^6/ul (4.0-5.4); Red Cell Distribution Width 16 % (10.5-15); White Blood Count 7.4 10^3/ul (3.5-10.8)
[2016-06-09] MEDS: Labetalol IV* 5 MG/ML 20 ML VIAL IV PUSH ONE ×2 (17:45→18:01)
[2016-06-09 17:50] LABS: BUN/Creatinine Ratio 5.4 (8-20); Calcium 9.9 mg/dL (8.6-10.3); EGFR African American 3.5 (>60); EGFR Non-African American 2.8 (>60); Globulin 2.6 g/dL (2-4); Total Bilirubin 0.8 mg/dL (0.2-1.0); Total Protein 6.6 g/dL (6.4-8.9)
[2016-06-09 17:54] LABS: Potassium 6.2 mmol/L (3.5-5.0)
[2016-06-09] MEDS ORDERED: NS 0.9% 1000 ML* 1,000 ML IV ONE (17:57)
[2016-06-09] MEDS ORDERED: Metoclopramide IV* 5 MG/ML 2 ML VIAL IV ONE (17:57)
[2016-06-09] MEDS ORDERED: HYDROmorphone* 1 MG/ML 1 ML SYR IV SLOW PU ONE (17:58)
[2016-06-09] MEDS ORDERED: Insulin REGULAR(*) 1 UNITS UNIT IV PUSH ONE (17:59)
[2016-06-09] MEDS ORDERED: Dextrose 50% Syringe 50 ML* 25 GM/50 ML SYRINGE IV PUSH ONE (17:59)
[2016-06-09] MEDS ORDERED: Sodium Bicarbonate 8.4% IV* 50 ML VIAL IV ONE (18:01)
[2016-06-09] MEDS ORDERED: Sodium Polystyrene ORAL.SOL* 15 GM/60 ML BTL PO ONE (18:16)
[2016-06-09] MEDS ORDERED: traMADol TAB* 50 MG PO PRN ×2 (18:52→18:56)
[2016-06-09] MEDS ORDERED: Ondansetron ODT TAB* 4 MG PO PRN (18:52)
[2016-06-09] MEDS ORDERED: HYDROmorphone* 1 MG/ML 1 ML SYR IV SLOW PU PRN (18:58)
[2016-06-09] MEDS ORDERED: cloNIDine 0.3 MG PATCH* 0.3 MG/24 HR 7 DAY PATCH TRANSDERM SCH (19:00)
--- NOTE | 2016-06-09 19:10 | ED ---
John Alejandro Adam, scribed for Harry Mcconnell MD on 06/09/16 at 1702 . Complex/Multi-Sys Presentation - HPI Summary HPI Summary: Pt is a 31 year old male presenting with a migraine TEIXEIRA, nausea, and vomiting. He states that his TEIXEIRA set on at 01:00 this morning. It is diffuse throughout his head but worse on the left side. He also c/o photophobia. He gets migraines frequently and takes tramadol and ibuprofen for them. He is currently out of tramadol so he only took ibuprofen today but he vomited it up immediately. He denies neck pain, fever, and chills. Pt has renal failure and is undergoing peritoneal dialysis (followed by Dr. Arana). He had a kidney transplant that worked for 4 years but then was rejected 2 years ago. - History Of Current Complaint Chief Complaint: EDHeadache Time Seen by Provider: 06/09/16 16:40 Hx Obtained From: Patient Onset/Duration: Sudden Onset, Lasting Hours, Still Present Timing: Constant Severity Currently: Moderate Severity Initially: Moderate Character: Migraine Aggravating Factor(s): Bright light Alleviating Factor(s): Ibuprofen and tramadol, although no tramadol taken today and ibuprofen was vomited up Associated Signs And Symptoms: Positive: Headache, Nausea, Vomiting, Other - Photophobia. Negative: Fever - Allergies/Home Medications Allergies/Adverse Reactions: Allergies Allergy/AdvReac Type Severity Reaction Status Date / Time Hydrocodone [From Vicodin] AdvReac Intermediate TWITCHING Verified 06/09/16 15: 17 Home Medications: Home Medications Divalproex DR TAB(*) [Depakote DR(*)] 500 mg PO BID 06/09/16 [History Confirmed 06/09/16] MinoXIDil TAB* [Loniten TAB*] 5 mg PO BID 06/09/16 [History Confirmed 06/09/16] traMADol TAB* [Ultram*] 50 - 100 mg PO Q6HR PRN 06/09/16 [History Confirmed 05/23] PMH/Surg Hx/FS Hx/Imm Hx Endocrine/Hematology History: Reports: Hx Anticoagulant Therapy, Hx Blood Transfusions - February 2016, Hx Anemia Denies: Hx Blood Disorders, Hx Bone Marrow Disease, Hx Diabetes, Hx Systemic Lupus Erythematosus, Hx Sickle Cell Disease, Hx Thyroid Disease, Hx Unexplained Bleeding, Other Endocrine/Hematological Disorders Cardiovascular History: Reports: Hx Embolism - PE, Hx Hypertension - ON MEDS, Other Cardiovascular Problems/Disorders - RT.KIDNEY TRANSPLANT FAILED AND REMOVED/DIALYSIS - Denies: Hx Aneurysm, Hx Angina, Hx Angioplasty, Hx Auto Implanted Cardiovert Defib, Hx Cardiac Arrest, Hx Cardiomegaly, Hx Congenital Heart Disease, Hx Congestive Heart Failure, Hx Coronary Artery Disease, Hx Deep Vein Thrombosis, Hx Hypercholesterolemia, Hx Hypotension, Hx Pacemaker/ICD, Hx Peripheral Vascular Disease, Hx Rheumatic Fever, Hx Syncope, Hx Valvular Heart Disease Respiratory History: Reports: Other Respiratory Problems/Disorders - 3 spontaneous pneumo's in past one fixed with bovine Denies: Hx Asthma, Hx Chronic Bronchitis, Hx Chronic Obstructive Pulmonary Disease (COPD), Hx Cystic Fibrosis, Hx Lung Cancer, Hx Pleural Effusion, Hx Pneumonia, Hx Pulmonary Edema, Hx Pulmonary Embolism, Hx Seasonal Allergies, Hx Sleep Apnea GI History: Denies: Hx Cirrhosis, Hx Crohn's Disease, Hx Diverticulosis, Hx Gall Bladder Disease, Hx Gastroesophageal Reflux Disease, Hx Gastrointestinal Bleed, Hx Hiatal Hernia, Hx Irritable Bowel, Hx Jaundice, Hx Obstructive Bowel, Hx Ileostomy, Hx Pyloric Stenosis, Hx Ulcer, Other GI Disorders History: Reports: Hx Acute Renal Failure, Hx Chronic Renal Failure, Hx Dialysis, Hx Renal Disease - TRANSPLANT - RT, dialysis every Mon., Wed., Fri., Other Problems/Disorders - kidney transplant Denies: Hx Benign Prostatic Hyperplasia, Hx Kidney Infection, Hx Kidney Stones Musculoskeletal History: Denies: Hx Arthritis, Hx Back Problems, Hx Bursitis, Hx Congenital Bone Abnormalities, Hx Fibromyalgia, Hx Gout, Hx Orthopedic Injury, Hx Osteoporosis, Hx Scoliosis, Hx Tendonitis, Other Musculoskeletal History Sensory History: Reports: Hx Contacts or Glasses, Hx Deafness, Hx Hearing Aid - never wears, Hx Hearing Problem - moderate hearing loss bilat ears Denies: Hx Cataracts, Hx Eye Injury, Hx Eye Prosthesis, Hx Glaucoma, Hx Legally Blind, Hx Macular Degeneration, Hx Vision Problem, Other Sensory Impairments Opthamlomology History: Reports: Hx Contacts or Glasses Denies: Hx Cataracts, Hx Eye Injury, Hx Eye Prosthesis, Hx Glaucoma, Hx Legally Blind, Hx Macular Degeneration, Hx Vision Problem, Other Sensory Impairments Neurological History: Reports: Hx Headaches, Hx Migraine - 1-2 PER MONTH Denies: Hx Dementia, Hx Developmental Delay, Hx Nerve Disease, Hx Seizures, Hx Spinal Cord Injury, Hx Transient Ischemic Attacks (TIA), Other Neuro Impairments/Disorders Psychiatric History: Reports: Hx Depression Denies: Hx Anxiety, Hx Attention Deficit Hyperactivity Disorder, Hx Eating Disorder, Hx Panic Disorder, Hx Post Traumatic Stress Disorder, Hx Inpatient Treatment, Hx Community Mental Health Tx, Hx Schizophrenia, Hx Bipolar Disorder , Hx Suicide Attempt, Hx of Violent Episodes Against Others, Hx Substance Abuse , Other Psychiatric Issues/Disorders - Cancer History Hx Chemotherapy: No Hx Radiation Therapy: No Hx Palliative Cancer Treatment: No - Surgical History Surgery Procedure, Year, and Place: 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[place], [place]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; LEFT LUNG SX FOR REPAIR; LEFT ARM FISTULA FOR DIALISYS 2015, RIGHT CHEST WALL CATH FOR DIALYSIS; RIGHT NEPHRECTOMY - kidney rejected, 2015 Hx Anesthesia Reactions: No - Immunization History Date of Tetanus Vaccine: Unk Date of Influenza Vaccine: Fall 2014 Infectious Disease History: No Infectious Disease History: Denies: Hx Hepatitis, Hx of Known/Suspected MRSA, Hx Shingles, Hx Tuberculosis, History Other Infectious Disease, Traveled Outside the in Last 30 Days - Family History Known Family History: Positive: Other - Mother carrier of alport disease gene Negative: Blood Disorder - Social History Occupation: Unemployed Lives: Alone Alcohol Use: None - Currently Alcohol Amount: Once per month before getting sick in February Hx Substance Use: No Substance Use Type: Reports: None Hx Tobacco Use: Yes Smoking Status (MU): Former Smoker Type: Cigarettes Amount Used/How Often: PACK A DAY Have You Smoked in the Last Year: No Review of Systems Negative: Fever, Chills Positive: Photophobia Positive: Vomiting, Nausea Positive: Headache All Other Systems Reviewed And Are Negative: Yes Physical Exam - Summary Physical Exam Summary: The patient is well-nourished in no acute distress and in no acute pain. The skin is warm and dry and skin color reflects adequate perfusion. Good skin turgor. HEENT: The head is normocephalic and atraumatic. The pupils are equal and reactive. The conjunctivae are clear and without drainage. Photophobia. Nares are patent and without drainage. Mouth reveals moist mucous membranes and the throat is without erythema and exudate. The external ears are intact. The ear canals are patent and without drainage. The tympanic membranes are intact. Neck is supple with full range of motion and non-tender. There are no carotid bruits. There is no neck vein distension. Respiratory: Chest is non-tender. Lungs are clear to auscultation and breath sounds are symmetrical and equal. Cardiovascular: Heart is regular rate and rhythm. There is no murmur or rub auscultated. There is no peripheral edema and pulses are symmetrical and equal. Abdomen: The abdomen is soft and non-tender. There are normal bowel sounds heard in all four quadrants and there is no organomegaly palpated. Musculoskeletal: There is no back pain noted. Extremities are non-tender with full range of motion. There is good capillary refill. There is no peripheral edema or calf tenderness elicited. Good motor strenth in both arms and legs. Fistula in left arm. Neurological: Patient is alert and oriented to person, place and time. The patient has symmetrical motor strength in all four extremities. Cranial nerves are grossly intact. Deep tendon reflexes are symmetrical and equal in all four extremities. Psychiatric: The patient has an appropriate affect and does not exhibit any anxiety or depression. Triage Information Reviewed: Yes Vital Signs On Initial Exam: Initial Vitals Temp Pulse Resp BP Pulse Ox 97.8 F 82 16 203/123 100 06/09/16 15:17 06/09/16 15:17 06/09/16 15:17 06/09/16 15:17 06/09/16 15:17 Vital Signs Reviewed: Yes - Hermila Coma Scale Coma Scale Total: 15 Diagnostics - Vital Signs Vital Signs Temp Pulse Resp BP Pulse Ox 06/09/16 16:00 102 23 151/125 100 06/09/16 15:44 87 97 06/09/16 15:42 209/125 06/09/16 15:17 97.8 F 82 16 203/123 100 - Laboratory Lab Results: Lab Results 06/09/16 06/09/16 06/09/16 Range/Units 17:00 17:00 17:00 WBC 7.4 (3.5-10.8) 10^3/ul RBC 3.08 L (4.0-5.4) 10^6/ul Hgb 9.0 L (14.0-18.0) g/dl Hct 27 L (42-52) % MCV 86 (80-94) fL MCH 29 (27-31) pg MCHC 34 (31-36) g/dl RDW 16 H (10.5-15) % Plt Count 238 (150-450) 10^3/ul MPV 7 L (7.4-10.4) um3 Neut % (Auto) 85.0 H (38-83) % Lymph % (Auto) 7.6 L (25-47) % [place] % (Auto) 4.4 (1-9) % Eos % (Auto) 1.9 (0-6) % Baso % (Auto) 1.1 (0-2) % Absolute Neuts (auto) 6.3 (1.5-7.7) 10^3/ul Absolute Lymphs (auto) 0.6 L (1.0-4.8) 10^3/ul Absolute Monos (auto) 0.3 (0-0.8) 10^3/ul Absolute Eos (auto) 0.1 (0-0.6) 10^3/ul Absolute Basos (auto) 0.1 (0-0.2) 10^3/ul Absolute Nucleated RBC 0 10^3/ul Nucleated RBC % 0.1 INR (Anticoag Therapy) 0.91 (0.89-1.11) APTT 34.5 (26.0-36.3) seconds Sodium 131 L (133-145) mmol/L Potassium 6.2 H* (3.5-5.0) mmol/L Chloride 89 L (101-111) mmol/L Carbon Dioxide 27 (22-32) mmol/L Anion Gap 15 H (2-11) mmol/L BUN 109 H (6-24) mg/dL Creatinine 20.19 H (0.67-1.17) mg/dL Est GFR ( Amer) 3.5 (>60) Est GFR (Non-Af Amer) 2.8 (>60) BUN/Creatinine Ratio 5.4 L (8-20) Glucose 83 (70-100) mg/dL Lactic Acid (0.5-2.0) mmol/L Calcium 9.9 (8.6-10.3) mg/dL Magnesium 2.0 (1.9-2.7) mg/dL Total Bilirubin 0.80 (0.2-1.0) mg/dL AST 25 (13-39) U/L ALT 19 (7-52) U/L Alkaline Phosphatase 45 (34-104) U/L Total Protein 6.6 (6.4-8.9) g/dL Albumin 4.0 (3.2-5.2) g/dL Globulin 2.6 (2-4) g/dL Albumin/Globulin Ratio 1.5 (1-3) /05/23 Range/Units 17:00 WBC (3.5-10.8) 10^3/ul RBC (4.0-5.4) 10^6/ul Hgb (14.0-18.0) g/dl Hct (42-52) % MCV (80-94) fL MCH (27-31) pg MCHC (31-36) g/dl RDW (10.5-15) % Plt Count (150-450) 10^3/ul MPV (7.4-10.4) um3 Neut % (Auto) (38-83) % Lymph % (Auto) (25-47) % [place] % (Auto) (1-9) % Eos % (Auto) (0-6) % Baso % (Auto) (0-2) % Absolute Neuts (auto) (1.5-7.7) 10^3/ul Absolute Lymphs (auto) (1.0-4.8) 10^3/ul Absolute Monos (auto) (0-0.8) 10^3/ul Absolute Eos (auto) (0-0.6) 10^3/ul Absolute Basos (auto) (0-0.2) 10^3/ul Absolute Nucleated RBC 10^3/ul Nucleated RBC % INR (Anticoag Therapy) (0.89-1.11) APTT (26.0-36.3) seconds Sodium (133-145) mmol/L Potassium (3.5-5.0) mmol/L Chloride (101-111) mmol/L Carbon Dioxide (22-32) mmol/L Anion Gap (2-11) mmol/L BUN (6-24) mg/dL Creatinine (0.67-1.17) mg/dL Est GFR ( Amer) (>60) Est GFR (Non-Af Amer) (>60) BUN/Creatinine Ratio (8-20) Glucose (70-100) mg/dL Lactic Acid 0.6 (0.5-2.0) mmol/L Calcium (8.6-10.3) mg/dL Magnesium (1.9-2.7) mg/dL Total Bilirubin (0.2-1.0) mg/dL AST (13-39) U/L ALT (7-52) U/L Alkaline Phosphatase (34-104) U/L Total Protein (6.4-8.9) g/dL Albumin (3.2-5.2) g/dL Globulin (2-4) g/dL Albumin/Globulin Ratio (1-3) Result Diagrams: 06/09/16 17:00 06/09/16 17:00 Lab Statement: Any lab studies that have been ordered have been reviewed, and results considered in the medical decision making process. - EKG 15:52 Cardiac Rate: NL - 82 BPM EKG Rhythm: Sinus Rhythm EKG Interpretation: Hyper QT waves in V2 and V3 suggestive of hyperkalemia - Additional Comments Diagnostic Additional Comments: Potassium - 6.2 Complex Multi-Symp Course/Dx Course Of Treatment: 18:45 - Patient will be admitted. case was discussed with Dr. Arana. he recommended admission and blood pressure control with labetlol. Dr. Siegel was notified and will evaluate the patient. - Diagnoses Differential Diagnoses/HQI/PQRI: Metabolic Abnormality, Other - chronic renal failure, migraine, hypertensive crisis Provider Diagnoses: Hyperkalemia, Uncontrolled hypertension, Migraine headache, Renal failure - Critical Care Time Critical Care Time: 30-74 min - 30 minutes Discharge - Discharge Plan Condition: Stable Disposition: ADMITTED TO [facility] documentation as recorded by the John florence Adam accurately reflects the service I personally performed and the decisions made by , Harry Mcconnell MD.
[2016-06-09] MEDS ORDERED: MinoXIDil TAB* 2.5 MG TAB PO SCH (21:00)
[2016-06-09] MEDS: Ropinirole TAB* 0.5 MG TAB PO SCH (21:06)
[2016-06-09] MEDS: Propranolol TAB* 80 MG PO SCH (21:06)
[2016-06-09] MEDS: Sevelamer TAB* 800 MG PO SCH (21:06)
[2016-06-09] MEDS: Divalproex DR TAB(*) 500 MG PO SCH (21:54)
[2016-06-09] MEDS: Heparin VIAL(*) 5000 UNITS/ML VIAL (FIVE THOUSAND) SUBCUT SCH (22:21)
[2016-06-09 23:06] LABS: BUN/Creatinine Ratio 5.5 (8-20); Calcium 9.3 mg/dL (8.6-10.3); EGFR African American 3.8 (>60); Potassium 4.7 mmol/L (3.5-5.0)
[2016-06-09] MEDS: hydrALAZINE IV* 20 MG/ML VIAL IV SLOW PU PRN (23:10)
--- NOTE | 2016-06-09 23:35 | HP ---
MEDICINE HISTORY AND PHYSICAL: DATE OF ADMISSION: 06/09/16 PROVIDER: Lito Ley NP ATTENDING PHYSICIAN: Dr. Camelia Siegel *(dictated by Lito Ley NP). PRIMARY CARE PHYSICIANS: Dr. Jose De Jesus Arana and Dr. Frey. CHIEF COMPLAINT: Headache. HISTORY OF PRESENT ILLNESS: Mr. Sotelo is a 31-year-old male with a past medical history significant for Alport syndrome, status post failed kidney transplant, end- stage renal disease, migraines, and hypertension who presented to the ER today with complaints of nausea, vomiting, and headaches. He states that his headache started around 1 a.m. this morning. It was a diffuse head pain that was worse on the left side and photophobia. He reports this morning that he woke up with his headache, but was able to run some errands. He did get blood work drawn today. He went home and his headache worsened. At some point, he had also called dialysis who had informed him his potassium was elevated and informed him that he would need to take Kayexalate, which he did take with his lunch. He states that he ate lunch, took his Kayexalate, laid down shortly thereafter, and vomited. He took some antinausea medication, which did not work and then came to the ER for further evaluation. He does report taking his a.m. blood pressure medications this morning. He is out of his tramadol at home, so he only took ibuprofen today for the headache, which was ineffective. He denies any other recent illnesses, fever, or chills. He denies any diarrhea and states that he normally has issues with constipation. He has taken Kayexalate today, but has not had any bowel movements as of yet. PAST MEDICAL HISTORY: Significant for: 1. Alport syndrome, status post failed kidney transplant. 2. Migraines. 3. Hypertension. 4. Anemia of chronic disease. PAST SURGICAL HISTORY: Includes: 1. Kidney transplant with removal. 2. Peritoneal dialysis catheter placement. 3. AV fistula to left arm. HOME MEDICATIONS: 1. Amlodipine 10 mg daily. 2. Verapamil SR 240 mg daily. 3. Renvela 3200 mg t.i.d. 4. Depakote ER 500 mg b.i.d. 5. Minoxidil 5 mg b.i.d. 6. Ondansetron ODT 4 mg q.6 hours p.r.n. 7. Calcitriol 0.25 mcg daily. 8. B complex with folic acid. 9. Vitamin supplement 1 tab daily. 10. Tramadol 50 to 100 mg q.6 hours p.r.n. 11. Ropinirole 0.5 mg b.i.d. 12. Propranolol 80 mg t.i.d. 13. Clonidine 0.3 mg patch transdermally q.7 days. 14. Omeprazole 20 mg daily. ALLERGIES: To HYDROCODONE. FAMILY HISTORY: His mother has a history of Alport syndrome. SOCIAL HISTORY: The patient denies tobacco or alcohol use. He reports that his mother, Ms. Oniel Sotelo, is his surrogate decision maker and healthcare proxy. REVIEW OF SYSTEMS: A 14-point review of systems was completed. All pertinent positives and negatives are included in the HPI. All those not mentioned are negative. PHYSICAL EXAMINATION GENERAL: Mr. Sotelo is a 31-year-old male patient. He is sitting in the ER stretcher with sun glasses on. He is in no acute distress. He is sleeping initially, but awakens with tactile stimuli. VITAL SIGNS: Temperature 99.4, heart rate 90, respiratory rate 20, blood pressure 148/76, and O2 saturation 96% on room air. HEENT: Head is atraumatic, normocephalic. Pupils are equal, round, and reactive to light. Conjunctivae are clear. External ears and nose are normal. Oral mucosa appears moist. There is no oropharyngeal erythema or exudate. NECK: Supple. No lymphadenopathy noted. There is no JVD. RESPIRATORY: Lungs are clear to auscultation. There is no accessory muscle use. CARDIAC: S1, S2 heart sounds. Regular rate and rhythm. No murmurs, rubs, or gallops. There is no peripheral edema. Distal pulses are 2+, symmetrical, and equal. ABDOMEN: Soft, nontender. Bowel sounds are present times all 4 quadrants. Dressing to peritoneal dialysis site is clean, dry, and intact. MUSCULOSKELETAL: There is no clubbing or cyanosis. The patient has full range of motion. SKIN: Appears grossly intact. PSYCH: The patient is alert and oriented x3. His affect is appropriate. LABORATORY DATA AND DIAGNOSTIC STUDIES: CBC: WBC 7.4, hemoglobin 9.0, hematocrit 27, platelet count 238. INR 0.91, PTT 34.5. CMP: Sodium 131, potassium 6.2, chloride 89, BUN 109, creatinine 20.19, glucose 83, lactic acid 0.6, calcium 9.9, magnesium 2.0. Total bilirubin 0.8, AST 25, ALT 19, alk phos 45, albumin 4.0. The patient's EKG showed sinus rhythm with no ischemic ST changes. Old medical records were reviewed. ASSESSMENT AND PLAN: Mr. Sotelo is a 31-year-old male with end-stage renal disease who presents today with concern for migraine headache, hyperkalemia, hypertension, and renal failure. We will admit him under observation to the ICU. Plan is as follows: 1. Headache: This is likely secondary to the patient's history of migraines as well as hypertension that was seen earlier here in the ER. His blood pressure is better controlled now at 148/76. We will continue him on his home medications and I have ordered p.r.n. hydralazine for continued blood pressure control. He does report improvement in his symptoms. We will also continue with antiemetics. Supportive care. 2. Hyperkalemia: The patient has been treated in the ER with D50 and insulin as well as Kayexalate. We will recheck a BMP in 4 hours. Peritoneal dialysis has been ordered and the ICU nurse has been notified to call the dialysis nurses for the patient's dialysis tonight. We will monitor him closely on telemetry. 3. Hypertension: Again, appears to be better controlled at this time. The patient did present with blood pressures in the 200s, but are now in the 140s. Continue his home medication regimen with p.r.n. hydralazine. 4. End-stage renal disease: Again, continue peritoneal dialysis. 5. DVT prophylaxis: The patient is moderate risk. We will have him continued on subcu heparin. 6. Code status: He is a full code. 7. Fluids, electrolytes, and nutrition: The patient is ordered a renal diet. 8. Disposition: Admit to ICU for observation. Discharge to home when medically stable. TIME SPENT: Time spent on this admission was approximately 60 minutes, more than half that time was spent [id number] with the patient obtaining history and physical, performing physical examination, and reviewing the plan of care. Plan of care was also reviewed with my attending, Dr. Siegel, who is in agreement. LITO LEY NP CC: Dr. Jose De Jesus Arana; Dr. Frey * [id number]/CPS #: [id number] MTDD
[2016-06-10] MEDS ORDERED: LORazepam INJ* 2 MG/ML 1 ML VIAL ONE (00:07)
[2016-06-10] MEDS: HYDROmorphone* 1 MG/ML 1 ML SYR IV SLOW PU PRN ×7 (00:10→23:37)
[2016-06-10] MEDS ORDERED: hydrALAZINE IV* 20 MG/ML VIAL ONE (03:26)
[2016-06-10] MEDS ORDERED: hydrALAZINE IV* 20 MG/ML VIAL IV SLOW PU STA (03:46)
[2016-06-10] MEDS: Heparin VIAL(*) 5000 UNITS/ML VIAL (FIVE THOUSAND) SUBCUT SCH ×3 (05:50→21:15)
[2016-06-10 05:53] LABS: Hematocrit 23 % (42-52); Hemoglobin 7.8 g/dl (14.0-18.0); Mean Corpuscular HGB Conc 34 g/dl (31-36); Mean Corpuscular Hemoglobin 29 pg (27-31); Mean Corpuscular Volume 86 fL (80-94); Mean Platelet Volume 7 um3 (7.4-10.4); Red Blood Count 2.69 10^6/ul (4.0-5.4); Red Cell Distribution Width 17 % (10.5-15); White Blood Count 4.8 10^3/ul (3.5-10.8)
[2016-06-10 06:05] LABS: BUN/Creatinine Ratio 4.9 (8-20); Calcium 9.4 mg/dL (8.6-10.3); EGFR African American 3.7 (>60); EGFR Non-African American 2.9 (>60); Potassium 4.5 mmol/L (3.5-5.0)
[2016-06-10] MEDS: Ondansetron INJ* 2 MG/ML VIAL IV PRN ×4 (06:48→20:09)
--- NOTE | 2016-06-10 08:15 | PN ---
Subjective Date of Service: 06/10/16 Interval History: Patient reports he is feeling much better this morning, reports headache is still present but mild. Denies N/V this morning. Denies vision changes but reports continued photophobia and is wearing sunglasses. Pt reports he developed nasal congestion yesterday and feels that he may have a mild cold. Denies cough, SOB, CP, Fever or chills. No abdominal pain or diarrhea. Rashid PD cath site redness or drainage around site. Pt does not make urine. Objective Active Medications: Amlodipine Besylate (Norvasc Tab*) 10 mg PO DAILY [facility] Calcitriol (Rocaltrol Cap*) 0.25 mcg PO DAILY [facility] Clonidine HCl (Rnpvdkra-Hvu-5 0.3 Mg Patch*) 0.3 mg TRANSDERM Q7D [facility] Divalproex Sodium (Depakote Dr Tab(*)) 500 mg PO BID [facility] Last Admin: 06/09/16 21:54 Dose: 500 mg Folic Acid (Folvite Tab*) 0.5 mg PO DAILY [facility] Heparin Sodium (Porcine) (Heparin Vial(*)) 5,000 units SUBCUT Q8HR [facility] Last Admin: 06/10/16 05:50 Dose: 5,000 units Hydralazine HCl (Apresoline Iv*) 5 mg IV SLOW PU Q6H PRN PRN Reason: BLOOD PRESSURE Last Admin: 06/09/16 23:10 Dose: 5 mg Hydromorphone HCl (Dilaudid Iv*) 1 mg IV SLOW PU Q3H PRN PRN Reason: PAIN Last Admin: 06/10/16 07:41 Dose: 1 mg Minoxidil (Loniten Tab*) 5 mg PO BID [facility] Last Admin: 06/09/16 21:05 Dose: 5 mg Omeprazole (Prilosec Cap*) 20 mg PO DAILY [facility] Ondansetron HCl (Zofran Odt Tab*) 4 mg PO Q6H PRN PRN Reason: NAUSEA Last Admin: 06/09/16 21:12 Dose: 4 mg Ondansetron HCl (Zofran Inj*) 4 mg IV Q4H PRN PRN Reason: NAUSEA Last Admin: 06/10/16 06:48 Dose: 4 mg Propranolol HCl (Inderal Tab*) 80 mg PO TID [facility] Last Admin: 06/09/16 21:06 Dose: 80 mg Ropinirole HCl (Requip Tab*) 0.5 mg PO BID [facility] Last Admin: 06/09/16 21:06 Dose: 0.5 mg Sevelamer Carbonate (Renvela Tab*) 3,200 mg PO TID [facility] Last Admin: 06/09/16 21:06 Dose: 3,200 mg Tramadol HCl (Ultram*) 100 mg PO Q12H PRN PRN Reason: PAIN - MODERATE TO SEVERE Tramadol HCl (Ultram*) 50 mg PO Q12H PRN PRN Reason: PAIN - MILD TO MODERATE Verapamil HCl (Calan Sr Tab*) 240 mg PO DAILY [facility] Vitamin B Complex/Vitamin E (Complex B-100*) 1 tab PO DAILY [facility] Vital Signs 06/10/16 06/10/16 06/10/16 04:30 05:00 05:30 Temperature Pulse Rate 102 98 Respiratory 18 15 7 Rate Blood Pressure 145/72 130/76 164/94 (mmHg) O2 Sat by Pulse 95 95 Oximetry 06/10/16 06/10/16 06/10/16 06:00 06:30 07:00 Temperature Pulse Rate 96 105 89 Respiratory 13 15 10 Rate Blood Pressure 145/88 142/102 186/125 (mmHg) O2 Sat by Pulse 96 96 94 Oximetry 06/10/16 06/10/16 06/10/16 07:30 07:41 08:00 Temperature 99.0 F Pulse Rate 111 113 Respiratory 13 20 17 Rate Blood Pressure 167/96 162/84 (mmHg) O2 Sat by Pulse 95 94 Oximetry Oxygen Devices in Use Now: None Appearance: 31 yo male A+O x3 in NAD. Eyes: No Scleral Icterus, PERRLA Ears/Nose/Mouth/Throat: NL Teeth, Lips, Gums, - - tachy MM Neck: NL Appearance and Movements; NL JVP Respiratory: Symmetrical Chest Expansion and Respiratory Effort, Clear to Auscultation Cardiovascular: RRR, No Edema Abdominal: NL Sounds; No Tenderness; No Distention, - - PD cath site intact clean, dry dressing - no noted redness or drainage around site. Extremities: No Edema, No Clubbing, Cyanosis Skin: No Rash or Ulcers, No Nodules or Sclerosis Neurological: Alert and Oriented x 3, NL Sensation, NL Muscle Strength and Tone Lines/Tubes/Other Access: Clean, Dry and Intact Peripheral IV Nutrition: Taking PO's Result Diagrams: 06/10/16 05:40 06/10/16 05:40 Additional Lab and Data: Lab Results 06/09/16 06/09/16 06/09/16 Range/Units 17:00 17:00 17:00 WBC 7.4 (3.5-10.8) 10^3/ul RBC 3.08 L (4.0-5.4) 10^6/ul Hgb 9.0 L (14.0-18.0) g/dl Hct 27 L (42-52) % MCV 86 (80-94) fL MCH 29 (27-31) pg MCHC 34 (31-36) g/dl RDW 16 H (10.5-15) % Plt Count 238 (150-450) 10^3/ul MPV 7 L (7.4-10.4) um3 Neut % (Auto) 85.0 H (38-83) % Lymph % (Auto) 7.6 L (25-47) % [place] % (Auto) 4.4 (1-9) % Eos % (Auto) 1.9 (0-6) % Baso % (Auto) 1.1 (0-2) % Absolute Neuts (auto) 6.3 (1.5-7.7) 10^3/ul Absolute Lymphs (auto) 0.6 L (1.0-4.8) 10^3/ul Absolute Monos (auto) 0.3 (0-0.8) 10^3/ul Absolute Eos (auto) 0.1 (0-0.6) 10^3/ul Absolute Basos (auto) 0.1 (0-0.2) 10^3/ul Absolute Nucleated RBC 0 10^3/ul Nucleated RBC % 0.1 INR (Anticoag Therapy) 0.91 (0.89-1.11) APTT 34.5 (26.0-36.3) seconds Sodium 131 L (133-145) mmol/L Potassium 6.2 H* (3.5-5.0) mmol/L Chloride 89 L (101-111) mmol/L Carbon Dioxide 27 (22-32) mmol/L Anion Gap 15 H (2-11) mmol/L BUN 109 H (6-24) mg/dL Creatinine 20.19 H (0.67-1.17) mg/dL Est GFR ( Amer) 3.5 (>60) Est GFR (Non-Af Amer) 2.8 (>60) BUN/Creatinine Ratio 5.4 L (8-20) Glucose 83 (70-100) mg/dL Lactic Acid (0.5-2.0) mmol/L Calcium 9.9 (8.6-10.3) mg/dL Magnesium 2.0 (1.9-2.7) mg/dL Total Bilirubin 0.80 (0.2-1.0) mg/dL AST 25 (13-39) U/L ALT 19 (7-52) U/L Alkaline Phosphatase 45 (34-104) U/L Total Protein 6.6 (6.4-8.9) g/dL Albumin 4.0 (3.2-5.2) g/dL Globulin 2.6 (2-4) g/dL Albumin/Globulin Ratio 1.5 (1-3) /05/23 Range/Units 17:00 WBC (3.5-10.8) 10^3/ul RBC (4.0-5.4) 10^6/ul Hgb (14.0-18.0) g/dl Hct (42-52) % MCV (80-94) fL MCH (27-31) pg MCHC (31-36) g/dl RDW (10.5-15) % Plt Count (150-450) 10^3/ul MPV (7.4-10.4) um3 Neut % (Auto) (38-83) % Lymph % (Auto) (25-47) % [place] % (Auto) (1-9) % Eos % (Auto) (0-6) % Baso % (Auto) (0-2) % Absolute Neuts (auto) (1.5-7.7) 10^3/ul Absolute Lymphs (auto) (1.0-4.8) 10^3/ul Absolute Monos (auto) (0-0.8) 10^3/ul Absolute Eos (auto) (0-0.6) 10^3/ul Absolute Basos (auto) (0-0.2) 10^3/ul Absolute Nucleated RBC 10^3/ul Nucleated RBC % INR (Anticoag Therapy) (0.89-1.11) APTT (26.0-36.3) seconds Sodium (133-145) mmol/L Potassium (3.5-5.0) mmol/L Chloride (101-111) mmol/L Carbon Dioxide (22-32) mmol/L Anion Gap (2-11) mmol/L BUN (6-24) mg/dL Creatinine (0.67-1.17) mg/dL Est GFR ( Amer) (>60) Est GFR (Non-Af Amer) (>60) BUN/Creatinine Ratio (8-20) Glucose (70-100) mg/dL Lactic Acid 0.6 (0.5-2.0) mmol/L Calcium (8.6-10.3) mg/dL Magnesium (1.9-2.7) mg/dL Total Bilirubin (0.2-1.0) mg/dL AST (13-39) U/L ALT (7-52) U/L Alkaline Phosphatase (34-104) U/L Total Protein (6.4-8.9) g/dL Albumin (3.2-5.2) g/dL Globulin (2-4) g/dL Albumin/Globulin Ratio (1-3) Assess/Plan/Problems-Billing Assessment: Mr. 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 - Patient Problems (1) Migraine Comment: Intractable Migraine, now improving, much better today but continuing to have some photophobia. No further vomiting this morning. Hx of frequent migraines. Reports onset of nasal congestion yesterday, possible viral syndrome. Has a f/u neurology Dr. Ramachandran?? tomorrow for evaluation for migraines and possible outpatient botox injections (2) ESRD (end stage renal disease) Comment: - Followed by Dr Arana - PD dependent - per pt 1000mls was taken off last evening. (3) Tachycardia Comment: - tachycardia started overnight. Suspect hypovolemic secondary to vomiting and PD last night. Spoke with Dr. Arana who agrees with the plan to give NS bolus. Hold Minoxidil for now. (4) HTN (hypertension) Comment: wth HTN urgency. BPs improving. Continue home clonidine, propranolol, verapamil, amlodpine. Hold minoxidil due to tachycradia (5) Anemia in end-stage renal disease Comment: - acute on chronic. stable, at baseline (6) Alport syndrome Comment: - since with complications of ERSD, hearing loss. (7) Hyperkalemia Comment: - K 6.2 at admission, now resolved after kayexalate and dialysis (8) DVT prophylaxis Comment: HSQ (9) Full code status Status and Disposition: inpatient with intractable Migraine with Nausea/Vomiting. Home when medically stable
[2016-06-10] MEDS: amLODIPine TAB* 5 MG PO SCH (08:59)
[2016-06-10] MEDS: Folic Acid TAB* 1 MG PO SCH (09:00)
[2016-06-10] MEDS: Calcitriol CAP* 0.25 MCG PO SCH (09:00)
[2016-06-10] MEDS ORDERED: NON FORMULARY MED* (B-Complex W/ C & Folic Acid [Nephro-Vite 0.8 Mg] 1 TAB) PO SCH (09:00)
[2016-06-10] MEDS: Omeprazole CAP* 20 MG PO SCH (09:00)
[2016-06-10] MEDS: Propranolol TAB* 80 MG PO SCH ×3 (09:01→20:27)
[2016-06-10] MEDS: Verapamil SR TAB* 240 MG PO SCH (09:02)
[2016-06-10] MEDS: Divalproex DR TAB(*) 500 MG PO SCH ×2 (09:31→21:13)
[2016-06-10] MEDS: Sevelamer TAB* 800 MG PO SCH ×3 (09:32→21:13)
[2016-06-10] MEDS: Vitamin B Complex TAB PO SCH (09:32)
[2016-06-10] MEDS: Ropinirole TAB* 0.5 MG TAB PO SCH ×2 (09:32→21:13)
[2016-06-10] MEDS ORDERED: NS 0.9% 250 ML* 250 ML IV SCH (10:00)
[2016-06-10] MEDS: hydrALAZINE IV* 20 MG/ML VIAL IV SLOW PU PRN ×2 (12:35→23:36)
[2016-06-10] MEDS ORDERED: Scopolamine 1.5 mg* PATCH TRANSDERM SCH (15:00)
[2016-06-10] MEDS: Mupirocin 2% OINT* TUBE TOPICAL SCH (15:39)
[2016-06-10] MEDS ORDERED: Labetalol IV* 5 MG/ML 20 ML VIAL IV PUSH ONE (17:05)
[2016-06-10] MEDS ORDERED: hydrALAZINE IV* 20 MG/ML VIAL IV SLOW PU PRN ×2 (19:09→23:16)
[2016-06-11] MEDS: Ondansetron INJ* 2 MG/ML VIAL IV PRN ×2 (00:45→07:53)
[2016-06-11] MEDS: hydrALAZINE IV* 20 MG/ML VIAL IV SLOW PU PRN ×2 (04:44→07:52)
[2016-06-11] MEDS: HYDROmorphone* 1 MG/ML 1 ML SYR IV SLOW PU PRN ×3 (04:47→12:01)
[2016-06-11] MEDS: Heparin VIAL(*) 5000 UNITS/ML VIAL (FIVE THOUSAND) SUBCUT SCH ×3 (04:48→22:45)
[2016-06-11 06:33] LABS: Hematocrit 22 % (42-52); Hemoglobin 7.3 g/dl (14.0-18.0); Mean Corpuscular HGB Conc 34 g/dl (31-36); Mean Corpuscular Hemoglobin 29 pg (27-31); Mean Corpuscular Volume 86 fL (80-94); Mean Platelet Volume 7 um3 (7.4-10.4); Red Blood Count 2.51 10^6/ul (4.0-5.4); Red Cell Distribution Width 17 % (10.5-15); White Blood Count 4.5 10^3/ul (3.5-10.8)
[2016-06-11 06:55] LABS: BUN/Creatinine Ratio 4.5 (8-20); Calcium 9.6 mg/dL (8.6-10.3); EGFR African American 3.6 (>60); EGFR Non-African American 2.8 (>60); Potassium 4.7 mmol/L (3.5-5.0)
[2016-06-11] MEDS: Mupirocin 2% OINT* TUBE TOPICAL SCH (07:53)
[2016-06-11] MEDS: Folic Acid TAB* 1 MG PO SCH (08:55)
[2016-06-11] MEDS: Divalproex DR TAB(*) 500 MG PO SCH (08:55)
[2016-06-11] MEDS: Omeprazole CAP* 20 MG PO SCH (08:55)
[2016-06-11] MEDS: Calcitriol CAP* 0.25 MCG PO SCH (08:55)
[2016-06-11] MEDS: amLODIPine TAB* 5 MG PO SCH (08:55)
[2016-06-11] MEDS: Propranolol TAB* 80 MG PO SCH ×3 (08:55→20:45)
[2016-06-11] MEDS: Sevelamer TAB* 800 MG PO SCH ×3 (08:56→20:45)
[2016-06-11] MEDS: Vitamin B Complex TAB PO SCH (08:56)
[2016-06-11] MEDS: Ropinirole TAB* 0.5 MG TAB PO SCH ×2 (08:56→20:45)
[2016-06-11] MEDS: Verapamil SR TAB* 240 MG PO SCH (08:56)
--- NOTE | 2016-06-11 10:19 | PN ---
Subjective Date of Service: 06/11/16 Interval History: pt reports he continues to have migraine TEIXEIRA with photophobia and reports accompanied nausea and vomiting able to keep very little down. Reports TEIXEIRA 04/18 currently stating he just received IV pain medication. Pt denies abdominal pain. No fever or chills. Denies cough. Objective Active Medications: Amlodipine Besylate (Norvasc Tab*) 10 mg PO DAILY [facility] Last Admin: 06/11/16 08:55 Dose: Not Given Calcitriol (Rocaltrol Cap*) 0.25 mcg PO DAILY [facility] Last Admin: 06/11/16 08:55 Dose: Not Given Clonidine HCl (Joddvdvq-Kdm-1 0.3 Mg Patch*) 0.3 mg TRANSDERM Q7D [facility] Divalproex Sodium (Depakote Dr Tab(*)) 500 mg PO BID [facility] Last Admin: 06/11/16 08:55 Dose: Not Given Folic Acid (Folvite Tab*) 0.5 mg PO DAILY [facility] Last Admin: 06/11/16 08:55 Dose: Not Given Heparin Sodium (Porcine) (Heparin Vial(*)) 5,000 units SUBCUT Q8HR [facility] Last Admin: 06/11/16 04:48 Dose: 5,000 units Hydralazine HCl (Apresoline Iv*) 10 mg IV SLOW PU Q2H PRN PRN Reason: BLOOD PRESSURE Last Admin: 06/11/16 07:52 Dose: 10 mg Hydromorphone HCl (Dilaudid Iv*) 1 mg IV SLOW PU Q2H PRN PRN Reason: PAIN Last Admin: 06/11/16 07:44 Dose: 1 mg Mupirocin (Bactroban 2 % Oint*) 1 applic TOPICAL DAILY [facility] Last Admin: 06/11/16 07:53 Dose: 1 applic Omeprazole (Prilosec Cap*) 20 mg PO DAILY [facility] Last Admin: 06/11/16 08:55 Dose: Not Given Ondansetron HCl (Zofran Odt Tab*) 4 mg PO Q6H PRN PRN Reason: NAUSEA Last Admin: 06/09/16 21:12 Dose: 4 mg Ondansetron HCl (Zofran Inj*) 4 mg IV Q4H PRN PRN Reason: NAUSEA Last Admin: 06/11/16 07:53 Dose: 4 mg Pharmacy Profile Note (Scopolomine Patch Remove*) 1 note PATCH OFF .AFTER 72 HOURS [facility] Propranolol HCl (Inderal Tab*) 80 mg PO TID [facility] Last Admin: 06/11/16 08:55 Dose: Not Given Ropinirole HCl (Requip Tab*) 0.5 mg PO BID [facility] Last Admin: 06/11/16 08:56 Dose: Not Given Scopolamine (Transderm-Scop 1.5 Mg Patch*) 1 patch TRANSDERM Q72H [facility] Last Admin: 06/10/16 16:10 Dose: 1 patch Sevelamer Carbonate (Renvela Tab*) 3,200 mg PO TID [facility] Last Admin: 06/11/16 08:56 Dose: Not Given Tramadol HCl (Ultram*) 100 mg PO Q12H PRN PRN Reason: PAIN - MODERATE TO SEVERE Tramadol HCl (Ultram*) 50 mg PO Q12H PRN PRN Reason: PAIN - MILD TO MODERATE Verapamil HCl (Calan Sr Tab*) 240 mg PO DAILY [facility] Last Admin: 06/11/16 08:56 Dose: Not Given Vitamin B Complex/Vitamin E (Complex B-100*) 1 tab PO DAILY [facility] Last Admin: 06/11/16 08:56 Dose: Not Given Vital Signs 06/10/16 06/11/16 06/11/16 23:42 00:37 01:00 Temperature 98.4 F Pulse Rate 88 Respiratory 18 18 Rate Blood Pressure 178/84 (mmHg) O2 Sat by Pulse 97 Oximetry 06/11/16 06/11/16 06/11/16 04:47 05:47 07:43 Temperature Pulse Rate 134 Respiratory 16 16 Rate Blood Pressure 182/82 (mmHg) O2 Sat by Pulse 99 Oximetry 06/11/16 06/11/16 06/11/16 07:44 08:44 08:45 Temperature Pulse Rate Respiratory 18 18 Rate Blood Pressure 170/62 (mmHg) O2 Sat by Pulse Oximetry Oxygen Devices in Use Now: None Appearance: 31 yo male laying in bed resting with sunglasses on A+O x3 in NAD Eyes: No Scleral Icterus, PERRLA Ears/Nose/Mouth/Throat: NL Teeth, Lips, Gums, Mucous Membranes Moist Neck: NL Appearance and Movements; NL JVP Respiratory: Symmetrical Chest Expansion and Respiratory Effort, Clear to Auscultation Cardiovascular: RRR, No Edema, - - 2/6 systolic murmur noted best at the upper right sternal border Abdominal: NL Sounds; No Tenderness; No Distention, - - PD cath intact no nited erythema or drainage around site Extremities: No Edema, No Clubbing, Cyanosis Skin: No Rash or Ulcers, No Nodules or Sclerosis Neurological: Alert and Oriented x 3, NL Sensation, NL Gait, NL Muscle Strength and Tone Lines/Tubes/Other Access: Clean, Dry and Intact Peripheral IV Nutrition: Taking PO's - very little Result Diagrams: 06/11/16 05:54 06/11/16 05:54 Additional Lab and Data: Lab Results 06/09/16 06/09/16 06/09/16 Range/Units 17:00 17:00 17:00 WBC 7.4 (3.5-10.8) 10^3/ul RBC 3.08 L (4.0-5.4) 10^6/ul Hgb 9.0 L (14.0-18.0) g/dl Hct 27 L (42-52) % MCV 86 (80-94) fL MCH 29 (27-31) pg MCHC 34 (31-36) g/dl RDW 16 H (10.5-15) % Plt Count 238 (150-450) 10^3/ul MPV 7 L (7.4-10.4) um3 Neut % (Auto) 85.0 H (38-83) % Lymph % (Auto) 7.6 L (25-47) % [place] % (Auto) 4.4 (1-9) % Eos % (Auto) 1.9 (0-6) % Baso % (Auto) 1.1 (0-2) % Absolute Neuts (auto) 6.3 (1.5-7.7) 10^3/ul Absolute Lymphs (auto) 0.6 L (1.0-4.8) 10^3/ul Absolute Monos (auto) 0.3 (0-0.8) 10^3/ul Absolute Eos (auto) 0.1 (0-0.6) 10^3/ul Absolute Basos (auto) 0.1 (0-0.2) 10^3/ul Absolute Nucleated RBC 0 10^3/ul Nucleated RBC % 0.1 INR (Anticoag Therapy) 0.91 (0.89-1.11) APTT 34.5 (26.0-36.3) seconds Sodium 131 L (133-145) mmol/L Potassium 6.2 H* (3.5-5.0) mmol/L Chloride 89 L (101-111) mmol/L Carbon Dioxide 27 (22-32) mmol/L Anion Gap 15 H (2-11) mmol/L BUN 109 H (6-24) mg/dL Creatinine 20.19 H (0.67-1.17) mg/dL Est GFR ( Amer) 3.5 (>60) Est GFR (Non-Af Amer) 2.8 (>60) BUN/Creatinine Ratio 5.4 L (8-20) Glucose 83 (70-100) mg/dL Lactic Acid (0.5-2.0) mmol/L Calcium 9.9 (8.6-10.3) mg/dL Magnesium 2.0 (1.9-2.7) mg/dL Total Bilirubin 0.80 (0.2-1.0) mg/dL AST 25 (13-39) U/L ALT 19 (7-52) U/L Alkaline Phosphatase 45 (34-104) U/L Total Protein 6.6 (6.4-8.9) g/dL Albumin 4.0 (3.2-5.2) g/dL Globulin 2.6 (2-4) g/dL Albumin/Globulin Ratio 1.5 (1-3) /05/23 Range/Units 17:00 WBC (3.5-10.8) 10^3/ul RBC (4.0-5.4) 10^6/ul Hgb (14.0-18.0) g/dl Hct (42-52) % MCV (80-94) fL MCH (27-31) pg MCHC (31-36) g/dl RDW (10.5-15) % Plt Count (150-450) 10^3/ul MPV (7.4-10.4) um3 Neut % (Auto) (38-83) % Lymph % (Auto) (25-47) % [place] % (Auto) (1-9) % Eos % (Auto) (0-6) % Baso % (Auto) (0-2) % Absolute Neuts (auto) (1.5-7.7) 10^3/ul Absolute Lymphs (auto) (1.0-4.8) 10^3/ul Absolute Monos (auto) (0-0.8) 10^3/ul Absolute Eos (auto) (0-0.6) 10^3/ul Absolute Basos (auto) (0-0.2) 10^3/ul Absolute Nucleated RBC 10^3/ul Nucleated RBC % INR (Anticoag Therapy) (0.89-1.11) APTT (26.0-36.3) seconds Sodium (133-145) mmol/L Potassium (3.5-5.0) mmol/L Chloride (101-111) mmol/L Carbon Dioxide (22-32) mmol/L Anion Gap (2-11) mmol/L BUN (6-24) mg/dL Creatinine (0.67-1.17) mg/dL Est GFR ( Amer) (>60) Est GFR (Non-Af Amer) (>60) BUN/Creatinine Ratio (8-20) Glucose (70-100) mg/dL Lactic Acid 0.6 (0.5-2.0) mmol/L Calcium (8.6-10.3) mg/dL Magnesium (1.9-2.7) mg/dL Total Bilirubin (0.2-1.0) mg/dL AST (13-39) U/L ALT (7-52) U/L Alkaline Phosphatase (34-104) U/L Total Protein (6.4-8.9) g/dL Albumin (3.2-5.2) g/dL Globulin (2-4) g/dL Albumin/Globulin Ratio (1-3) Assess/Plan/Problems-Billing Assessment: Mr. 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 - Patient Problems (1) Migraine Comment: Intractable Migraine, continuing to have photophobia and N/V. Hx of frequent migraines with frequent admissions. Had an outpt f/u with neurology Dr. Mike today (that was canceled) for evaluation for migraines and possible outpatient botox injections - On-call neurologist Dr. Ramachandran to consult today - recommended Valproic acid 500 mg IV q8, give rapidly over 10 minutes for migraine tx, Decadron IV 6 mg x 1. - Negative MRI brain 05/2015 - Check Valproic level in am (2) ESRD (end stage renal disease) Comment: - Followed by Dr Arana - PD dependent - Per PD nurse - it is suspected that pt is noncompliant with PD due to his creatinine trend. It is being discussed if the patient should undergo hemodialysis for a few weeks to see if there is improvement, pt already has a fistula placed. (3) Tachycardia Comment: - Mild tachycardia this morning, suspect hypovolemic secondary to vomiting. yesterday tachycardia resolved after small fluid bolus (Dr. Arana agreed). Hold bolus for now as pt will be getting fluid with Valpoic infusions. Hold Minoxidil for now. (4) HTN (hypertension) Comment: [facility] HTN emergency. BPs improving with IV hydralyzine. Continue home clonidine, propranolol, verapamil, amlodpine if able to take PO. Hold minoxidil due to tachycradia (5) Anemia in end-stage renal disease Comment: - acute on chronic. stable, at baseline (6) Alport syndrome Comment: - since with complications of ERSD, hearing loss. (7) Hyperkalemia Comment: - K 6.2 at admission, now resolved after kayexalate and dialysis (8) DVT prophylaxis Comment: HSQ (9) Full code status Status and Disposition: inpatient with intractable Migraine with Nausea/Vomiting. Home when medically stable
[2016-06-11] MEDS ORDERED: PROCHLORPERAZINE INJ 5 MG/ML 2 ML VIAL IV PRN (10:20)
[2016-06-11] MEDS ORDERED: hydrALAZINE IV* 20 MG/ML VIAL IV SLOW PU PRN (11:55)
[2016-06-11] MEDS ORDERED: Epoetin Alfa* 10,000 UNITS/ML VIAL SUBCUT ONE (12:00)
[2016-06-11] MEDS ORDERED: Dexamethasone IV* 6 MG in NS 0.9% 50 ML* 50 ML IVPB ONE (13:11)
[2016-06-11] MEDS ORDERED: Topiramate TAB(*) 25 MG PO SCH (21:00)
--- NOTE | 2016-06-12 00:25 | CONS ---
NEUROLOGY CONSULTATION: DATE OF CONSULT: 06/11/16 REFERRING PROVIDER: Yamilet Montoya NP LOCATION: He is an inpatient in room 412. CHIEF COMPLAINT: Headaches. HISTORY OF PRESENT ILLNESS: Juan Francisco Sotelo is a 31-year-old man with chronic headaches since childhood. He gets severe headaches and he has been hospitalized 4 times in the last year. His headaches are associated with uncontrolled hypertension, nausea and vomiting. In between hospitalizations and severe headaches, he gets a headache most every day. Some days he will be headache free and the longest he will go without a headache in last year is about a week. Headaches are bifrontal, temporal and associated with photophobia, nausea, and vomiting. He has been on Depakote and he thinks when it was started they might have been somewhat better, but that certainly did not resolve. He does not describe any visual phenomena other than photophobia with it. He uses tramadol at home for headaches and says it helps very little and he does not take it routinely. He had seen Dr. Jose Daniel Mike in consultation in the hospital a couple of times this past year as well as Dr. Crowe. He has an appointment with Dr. Mike this coming week, but he says he canceled it because he was in the hospital. He said that Botox is being considered. In addition to valproic acid, he has been on verapamil and I am not sure if that has been for blood pressure or headaches or both. PAST MEDICAL HISTORY: Notable for Alport syndrome resulting in renal failure. He had a renal transplant and he said he did very well for about 4 years and then it failed. He said that when the transplant was working, his headaches were less and his blood pressure was under better control. He still did have headaches, however. He also has anemia of chronic disease. He is currently on peritoneal dialysis, but he says he has been on hemodialysis in the past and his headaches were even worse. MEDICATIONS: At home consist of: 1. Amlodipine 10 mg p.o. daily. 2. Verapamil SR 240 mg p.o. daily. 3. Renvela 3200 mg t.i.d. 4. Depakote ER 500 mg p.o. b.i.d. 5. Minoxidil 5 mg p.o. b.i.d. 6. Zofran 4 mg ODT q.6 hours p.r.n. nausea. 7. Calcitriol 0.25 mcg daily. 8. Tramadol 50 to 100 mg q.6 hours p.r.n. headache. 9. Propranolol 80 mg p.o. t.i.d. 10. Clonidine 0.3 mg patch q.7 days. 11. Omeprazole 20 mg p.o. daily. Here in the hospital, medications in addition include: 1. Hydromorphone 1 mg IV q.2 hours p.r.n. pain. 2. Compazine was just started 10 mg IV q.6 hours p.r.n. nausea and vomiting. 3. Valproic acid was changed today to 500 mg IV q.8 hours. ALLERGIES: He is said to be allergic to HYDROCODONE. PHYSICAL EXAM: On limited physical examination, he is very photophobic. He is not vomiting currently. Temperature 98.2, blood pressure most recently 154/71, heart rate running about 90. Neck is supple. Pupils are reacting about 2.5 to 2 mm. ASSESSMENT AND PLAN: I could barely see his left fundus with light because of photophobia and he appeared to have a sharp disc. He is quite lucid and able to give a good history with intact memory, clear sensorium. There is no myoclonus or asterixis. Juan Francisco has chronic migraines as well as apparently severe headaches associated with hypertension. Topiramate is not a familiar medication to him and I would recommend giving it a try. I agree with IV Depakote. I agree with parenteral Compazine as well. Clearly, blood pressure control is important too and currently that seems to be under control. CC: Dr. Arana; Dr. Frey* [id number]/[facility] #: [id number]
[2016-06-12] MEDS: Heparin VIAL(*) 5000 UNITS/ML VIAL (FIVE THOUSAND) SUBCUT SCH ×2 (06:12→14:26)
[2016-06-12 06:17] LABS: Comments Flag Yes; Hematocrit 19 % (42-52); Mean Corpuscular Hemoglobin 29 pg (27-31); Mean Corpuscular Volume 87 fL (80-94); Mean Platelet Volume 8 um3 (7.4-10.4); Red Cell Distribution Width 17 % (10.5-15)
[2016-06-12 06:31] LABS: Mean Corpuscular HGB Conc 33 g/dl (31-36); Red Blood Count 2.21 10^6/ul (4.0-5.4)
[2016-06-12 06:33] LABS: EGFR African American 3.4 (>60); EGFR Non-African American 2.6 (>60); Potassium 4.7 mmol/L (3.5-5.0)
[2016-06-12 06:35] LABS: Add Diff/Slide Review? Slide Review Added; Hemoglobin 6.4 g/dl (14.0-18.0)
[2016-06-12 08:36] VITALS: BP 172/68
[2016-06-12] MEDS: HYDROmorphone* 1 MG/ML 1 ML SYR IV SLOW PU PRN (08:45)
[2016-06-12] MEDS: Propranolol TAB* 80 MG PO SCH ×2 (08:48→14:26)
[2016-06-12] MEDS: amLODIPine TAB* 5 MG PO SCH (08:48)
[2016-06-12] MEDS: Folic Acid TAB* 1 MG PO SCH (08:52)
[2016-06-12] MEDS: Verapamil SR TAB* 240 MG PO SCH (08:52)
[2016-06-12] MEDS: Omeprazole CAP* 20 MG PO SCH (08:52)
[2016-06-12] MEDS: Sevelamer TAB* 800 MG PO SCH ×2 (08:52→14:27)
[2016-06-12] MEDS: Calcitriol CAP* 0.25 MCG PO SCH (08:53)
[2016-06-12] MEDS: Ropinirole TAB* 0.5 MG TAB PO SCH (08:53)
[2016-06-12] MEDS: Mupirocin 2% OINT* TUBE TOPICAL SCH (08:53)
[2016-06-12] MEDS: Vitamin B Complex TAB PO SCH (08:53)
[2016-06-12] MEDS ORDERED: hydrALAZINE IV* 20 MG/ML VIAL IV SLOW PU PRN (09:42)
--- NOTE | 2016-06-12 09:48 | PN ---
Subjective Date of Service: 06/12/16 Interval History: patient reports he feels much much better today, no vomiting since yesterday morning, migraine has resolved. He has been able to tolerate PO w/o nausea. Denies bloody emesis or dark BMs. Pt would like to go home today. reports he woke up with chest wall pain but thinks it is that way he was sleeping and it resolved with position changes. Denies sob, CP, dizziness. Objective Active Medications: Amlodipine Besylate (Norvasc Tab*) 10 mg PO DAILY [facility] Last Admin: 06/12/16 08:48 Dose: 10 mg Calcitriol (Rocaltrol Cap*) 0.25 mcg PO DAILY [facility] Last Admin: 06/12/16 08:53 Dose: 0.25 mcg Clonidine HCl (Uqasyjug-Rko-8 0.3 Mg Patch*) 0.3 mg TRANSDERM Q7D [facility] Folic Acid (Folvite Tab*) 0.5 mg PO DAILY [facility] Last Admin: 06/12/16 08:52 Dose: 0.5 mg Heparin Sodium (Porcine) (Heparin Vial(*)) 5,000 units SUBCUT Q8HR [facility] Last Admin: 06/12/16 06:12 Dose: Not Given Hydralazine HCl (Apresoline Iv*) 10 mg IV SLOW PU Q4H PRN PRN Reason: BLOOD PRESSURE Hydromorphone HCl (Dilaudid Iv*) 1 mg IV SLOW PU Q2H PRN PRN Reason: PAIN Last Admin: 06/12/16 08:45 Dose: 1 mg Valproic Acid 500 mg/ Sodium (Chloride) 105 mls @ 210 mls/hr IVPB Q8H [facility] Last Admin: 06/12/16 05:33 Dose: 210 mls/hr Mupirocin (Bactroban 2 % Oint*) 1 applic TOPICAL DAILY [facility] Last Admin: 06/12/16 08:53 Dose: 1 applic Omeprazole (Prilosec Cap*) 20 mg PO DAILY [facility] Last Admin: 06/12/16 08:52 Dose: 20 mg Ondansetron HCl (Zofran Odt Tab*) 4 mg PO Q6H PRN PRN Reason: NAUSEA Last Admin: 06/09/16 21:12 Dose: 4 mg Ondansetron HCl (Zofran Inj*) 4 mg IV Q4H PRN PRN Reason: NAUSEA Last Admin: 06/11/16 07:53 Dose: 4 mg Prochlorperazine Edisylate (Compazine Inj*) 10 mg IV Q6H PRN PRN Reason: NAUSEA/VOMITING Last Admin: 06/11/16 12:00 Dose: 10 mg Propranolol HCl (Inderal Tab*) 80 mg PO TID [facility] Last Admin: 06/12/16 08:48 Dose: 80 mg Ropinirole HCl (Requip Tab*) 0.5 mg PO BID [facility] Last Admin: 06/12/16 08:53 Dose: 0.5 mg Sevelamer Carbonate (Renvela Tab*) 3,200 mg PO TID [facility] Last Admin: 06/12/16 08:52 Dose: 3,200 mg Topiramate (Topamax(*)) 25 mg PO BEDTIME [facility] Last Admin: 06/11/16 20:45 Dose: Not Given Tramadol HCl (Ultram*) 100 mg PO Q12H PRN PRN Reason: PAIN - MODERATE TO SEVERE Verapamil HCl (Calan Sr Tab*) 240 mg PO DAILY [facility] Last Admin: 06/12/16 08:52 Dose: 240 mg Vitamin B Complex/Vitamin E (Complex B-100*) 1 tab PO DAILY [facility] Last Admin: 06/12/16 08:53 Dose: 1 tab Vital Signs 06/11/16 06/11/16 06/11/16 11:55 12:01 13:01 Temperature 98.2 F Pulse Rate 108 Respiratory 16 18 16 Rate Blood Pressure 154/71 (mmHg) O2 Sat by Pulse 99 Oximetry 06/11/16 06/11/16 06/11/16 14:21 17:53 20:46 Temperature Pulse Rate 107 97 Respiratory 16 Rate Blood Pressure 175/79 127/62 (mmHg) O2 Sat by Pulse Oximetry 06/11/16 06/12/16 06/12/16 23:20 05:32 07:45 Temperature 98.1 F 98.4 F Pulse Rate 84 71 67 Respiratory 18 16 16 Rate Blood Pressure 141/76 140/71 131/55 (mmHg) O2 Sat by Pulse 98 98 Oximetry 06/12/16 06/12/16 08:36 08:45 Temperature Pulse Rate Respiratory 18 Rate Blood Pressure 172/68 (mmHg) O2 Sat by Pulse Oximetry Oxygen Devices in Use Now: None Appearance: 31 yo chronically ill appearing male sitting up in bed eating in NAD A+O x3 Eyes: No Scleral Icterus, PERRLA Ears/Nose/Mouth/Throat: NL Teeth, Lips, Gums, Mucous Membranes Moist Neck: NL Appearance and Movements; NL JVP Respiratory: Symmetrical Chest Expansion and Respiratory Effort, Clear to Auscultation Cardiovascular: NL Sounds; No Murmurs; No JVD, RRR, No Edema Abdominal: NL Sounds; No Tenderness; No Distention, - - PD cath intact to noted erythema or drainage Extremities: No Edema, No Clubbing, Cyanosis Skin: No Rash or Ulcers, No Nodules or Sclerosis Neurological: Alert and Oriented x 3, NL Sensation, NL Gait, NL Muscle Strength and Tone Lines/Tubes/Other Access: Clean, Dry and Intact Peripheral IV Nutrition: Taking PO's Result Diagrams: 06/12/16 09:53 06/12/16 06:04 Additional Lab and Data: Lab Results 06/09/16 06/09/16 06/09/16 Range/Units 17:00 17:00 17:00 WBC 7.4 (3.5-10.8) 10^3/ul RBC 3.08 L (4.0-5.4) 10^6/ul Hgb 9.0 L (14.0-18.0) g/dl Hct 27 L (42-52) % MCV 86 (80-94) fL MCH 29 (27-31) pg MCHC 34 (31-36) g/dl RDW 16 H (10.5-15) % Plt Count 238 (150-450) 10^3/ul MPV 7 L (7.4-10.4) um3 Neut % (Auto) 85.0 H (38-83) % Lymph % (Auto) 7.6 L (25-47) % [place] % (Auto) 4.4 (1-9) % Eos % (Auto) 1.9 (0-6) % Baso % (Auto) 1.1 (0-2) % Absolute Neuts (auto) 6.3 (1.5-7.7) 10^3/ul Absolute Lymphs (auto) 0.6 L (1.0-4.8) 10^3/ul Absolute Monos (auto) 0.3 (0-0.8) 10^3/ul Absolute Eos (auto) 0.1 (0-0.6) 10^3/ul Absolute Basos (auto) 0.1 (0-0.2) 10^3/ul Absolute Nucleated RBC 0 10^3/ul Nucleated RBC % 0.1 INR (Anticoag Therapy) 0.91 (0.89-1.11) APTT 34.5 (26.0-36.3) seconds Sodium 131 L (133-145) mmol/L Potassium 6.2 H* (3.5-5.0) mmol/L Chloride 89 L (101-111) mmol/L Carbon Dioxide 27 (22-32) mmol/L Anion Gap 15 H (2-11) mmol/L BUN 109 H (6-24) mg/dL Creatinine 20.19 H (0.67-1.17) mg/dL Est GFR ( Amer) 3.5 (>60) Est GFR (Non-Af Amer) 2.8 (>60) BUN/Creatinine Ratio 5.4 L (8-20) Glucose 83 (70-100) mg/dL Lactic Acid (0.5-2.0) mmol/L Calcium 9.9 (8.6-10.3) mg/dL Magnesium 2.0 (1.9-2.7) mg/dL Total Bilirubin 0.80 (0.2-1.0) mg/dL AST 25 (13-39) U/L ALT 19 (7-52) U/L Alkaline Phosphatase 45 (34-104) U/L Total Protein 6.6 (6.4-8.9) g/dL Albumin 4.0 (3.2-5.2) g/dL Globulin 2.6 (2-4) g/dL Albumin/Globulin Ratio 1.5 (1-3) 06/09/16 Range/Units 17:00 WBC (3.5-10.8) 10^3/ul RBC (4.0-5.4) 10^6/ul Hgb (14.0-18.0) g/dl Hct (42-52) % MCV (80-94) fL MCH (27-31) pg MCHC (31-36) g/dl RDW (10.5-15) % Plt Count (150-450) 10^3/ul MPV (7.4-10.4) um3 Neut % (Auto) (38-83) % Lymph % (Auto) (25-47) % [place] % (Auto) (1-9) % Eos % (Auto) (0-6) % Baso % (Auto) (0-2) % Absolute Neuts (auto) (1.5-7.7) 10^3/ul Absolute Lymphs (auto) (1.0-4.8) 10^3/ul Absolute Monos (auto) (0-0.8) 10^3/ul Absolute Eos (auto) (0-0.6) 10^3/ul Absolute Basos (auto) (0-0.2) 10^3/ul Absolute Nucleated RBC 10^3/ul Nucleated RBC % INR (Anticoag Therapy) (0.89-1.11) APTT (26.0-36.3) seconds Sodium (133-145) mmol/L Potassium (3.5-5.0) mmol/L Chloride (101-111) mmol/L Carbon Dioxide (22-32) mmol/L Anion Gap (2-11) mmol/L BUN (6-24) mg/dL Creatinine (0.67-1.17) mg/dL Est GFR ( Amer) (>60) Est GFR (Non-Af Amer) (>60) BUN/Creatinine Ratio (8-20) Glucose (70-100) mg/dL Lactic Acid 0.6 (0.5-2.0) mmol/L Calcium (8.6-10.3) mg/dL Magnesium (1.9-2.7) mg/dL Total Bilirubin (0.2-1.0) mg/dL AST (13-39) U/L ALT (7-52) U/L Alkaline Phosphatase (34-104) U/L Total Protein (6.4-8.9) g/dL Albumin (3.2-5.2) g/dL Globulin (2-4) g/dL Albumin/Globulin Ratio (1-3) Assess/Plan/Problems-Billing Assessment: Mr. 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 - Patient Problems (1) Migraine Comment: Resolved Intractable Migraine, with photophobia and N/V. Hx of frequent migraines with frequent admissions. Plan for f/u within [address] Mike for evaluation for migraines and possible outpatient botox injections Neurologist Dr. Ramachandran to consult yesterday - Pt started on Valproic acid 500 mg IV q8, give rapidly over 10 minutes for migraine tx, and Decadron IV 6 mg x 1 which broke his cycle. - Negative MRI brain 05/2015 - Check Valproic level therapuetic - Restart home Depakote po regimen now that he is able to tolerate PO (2) ESRD (end stage renal disease) Comment: - Followed by Dr Arana - PD dependent - Per PD nurse - it is suspected that pt is noncompliant with PD due to his creatinine trend. It is being discussed if the patient should undergo hemodialysis for a few weeks to see if there is improvement, pt already has a fistula placed. 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 Pt refused transfusion in consideration of possibility of developing antibodies when transplanted Pt is hemodynamically stable. No transfusion will be performed at this point Received Epogen Dr. Arana updated (4) Tachycardia Comment: - resolved (5) HTN (hypertension) Comment: with HTN emergency. Improving, tolerating PO Continue home clonidine, propranolol, verapamil, amlodpine, restart minoxidil (6) Alport syndrome Comment: - since with complications of ERSD, hearing loss. Per Dr. Arana recommends evaluation by opth MD for possible Alport syndrome manifestations with hx of migraines. (7) Hyperkalemia Comment: - K 6.2 at admission, now resolved after kayexalate and dialysis (8) DVT prophylaxis Comment: HSQ (9) Full code status Status and Disposition: inpatient with intractable Migraine with Nausea/Vomiting. Home when medically stable possibly today
[2016-06-12 10:02] LABS: Hematocrit 24 % (42-52); Hemoglobin 7.7 g/dl (14.0-18.0)
[2016-06-12 10:05] LABS: Comments Flag Yes
[2016-06-12 10:36] LABS: Add Path Review? YES; Hypochromasia 1+; Microcytosis 1+; Schistocytes 1+
[2016-06-12] MEDS ORDERED: Omeprazole CAP* 20 MG PO SCH (21:00)
[2016-06-12] MEDS ORDERED: Divalproex DR TAB(*) 500 MG PO SCH (21:00)
--- NOTE | 2016-06-13 05:38 | DS ---
DISCHARGE SUMMARY: DATE OF ADMISSION: 06/09/16 DATE OF DISCHARGE: 06/12/16 PROVIDER: Iglesia Dozier NP REFERRING PHYSICIAN: Dr. Mcbride*(report dictated by Iglesia Dozier NP) PRIMARY CARE PROVIDER: Dr. Frey NEUROLOGIST: Dr. Mike. CONCEPTOR: Dr. Arana. PRIMARY DIAGNOSES: 1. Intractable migraines with intractable nausea, vomiting. 2. Hypertensive emergency. 3. End-stage renal disease, on peritoneal dialysis. 4. Alport syndrome, status post failed kidney transplant. 5. Anemia of chronic disease. DISCHARGE MEDICATIONS: 1. Amlodipine 10 mg p.o. daily. 2. Verapamil SR 240 mg p.o. daily. 3. Renvela 3200 mg p.o. t.i.d. 4. Depakote ER 500 mg p.o. b.i.d. 5. Minoxidil 5 mg p.o. b.i.d. 6. Zofran 4 mg p.o. q. 6 hours p.r.n. 7. Calcitriol 0.25 mcg p.o. daily. 8. B complex with C and folic acid 1 tab p.o. daily. 9. Tramadol 50 to 100 mg p.o. q. 6 hours p.r.n. 10. Requip 0.5 mg p.o. b.i.d. 11. Propranolol 80 mg p.o. t.i.d. 12. Clonidine patch 0.3 mg transderm q. 7 days. 13. Omeprazole 20 mg p.o. b.i.d. Please note that this was increased from daily. HISTORY OF PRESENT ILLNESS AND HOSPITAL COURSE: Please see history and physical by Fabby Barba NP, for full admission details, but in summary, this is a 31-year- old male with a past medical history significant for Alport syndrome, status post failed kidney transplant, end-stage renal disease on peritoneal dialysis, chronic migraines and hypertension, who presented to the emergency department on 06/09/16 with complaints of nausea, vomiting, headaches. Mr. Sotelo has a history of frequent ER visits and hospitalizations for intractable migraines, nausea, vomiting, and hypertensive emergency/urgency. The day that he was admitted he reported that his migraine started around 1 a.m. that morning with photophobia. Shortly thereafter, he started vomiting. Earlier in the day the dialysis nurse called him to tell him that his potassium is elevated and informed that he would need to take Kayexalate, which he did. He reported after that, he started to have intractable nausea and vomiting with worsening of a migraine headache and photophobia. On initial evaluation in the emergency department, his blood pressure was 134/85. However, within hours, it was 204/108. The patient was admitted to the hospitalist service for hypertensive emergency, intractable migraines and intractable nausea and vomiting. This is very common for the patient, and per dialysis nurse, it happens approximately every 2 to 3 weeks. The dialysis team is questioning if the patient is being compliant with his PD as his lab values appeared, that it is possible that he may not be compliant. However, the patient does state that he is compliant with his PD every day. The patient remained stable throughout hospitalization. However, he did have fluctuating high blood pressures requiring IV hydralazine and IV labetalol. It appears that the patient cycled with intractable migraine, nausea, vomiting which would increase his blood pressure. He was unable to take p.o. up until yesterday. The last time he vomited was yesterday morning. His blood pressure has been much better controlled over the past 24 hours, and he has been able to resume his home medications. Unclear etiology if this is due to a virus as the patient did report some mild congestion the day after admission, or possibly chronic migraine syndrome or again it is possible he is not being compliant with his PD, which is triggering migraines, which triggers the nausea, vomiting. Unable to take p.o. medications, which results in hypertensive urgency/emergency. The patient has had no leukocytosis throughout hospitalization and it is noted that his white blood cell count is a little low this morning at 3. However, looking back at the patient's trend, this is not abnormal for him. He has had some low-grade temperatures of 99, but has been afebrile. The day after admission, he was noted to be slightly tachycardic. I believe this is secondary to being on the dry side. He was given normal saline 250 bolus with resolution of his tachycardia. This morning, the patient was noted to have a hemoglobin and hematocrit of 6.4 and 19, which is slightly below the patient's baseline. It was of concern as the patient, in March after a vomiting episode, did have a Griselda Cortes tear , where his hemoglobin went as low as 5.6. At that time, he refused blood transfusion out of concern of developing antibodies for potential future transplant, but there are no signs of bleeding and I repeated the patient's H and H several hours later and it was 7.7 and 24. The patient did not have a stool for occult blood as he did not have a bowel movement and preferred I did not do a rectal, and I feel due to that, his H and H came right up several hours later, and I have a very low suspicion the patient is bleeding. The patient is safe for discharge to home. The patient did receive 10,000 units of Epogen per dialysis team yesterday. The patient this morning reports that he feels "great." The patient was evaluated yesterday by neurologist, Dr. Ramachandran, who did recommend giving the patient valproic acid q. 8 hours by quick infusion as well as the patient got 1 dose of Decadron 6 mg. This seemed to make a big difference in helping the patient break the cycle of the intractable migraines. Denies any further migraine, nausea, vomiting, and has tolerated his medication and p.o. well today. The patient is stable for discharge to home. DISCHARGE PLAN: 1. The patient is stable for discharge to home with close followup with the dialysis clinic; Dr. Arana is aware. 2. The patient is instructed to follow up with his primary care provider as he needs a referral to an town marshal to assess him for progression of his Alport syndrome as it can cause ophthalmological damage. This was also discussed with Dr. Arana, who recommended the patient undergo an eye exam. 3. Follow up with Dr. Mike within 3 weeks. The patient missed an appointment this week with Dr. Mike for possibly being set up with outpatient Botox injections, and the patient is very concerned about this due to he had to wait several months. Dr. Mike said he will fit him in the next 3 weeks for evaluation. TIME SPENT: Approximately 75 minutes was spent on this discharge. IGLESIA DOZIER NP CC: Dr. Frey; Dr. Mike; Dr. Arana* [id number]/[facility] #: [id number] LUIS M
[2016-06-13] MEDS ORDERED: Scopolomine PATCH Remove* 1 NOTE MISC PATCH OFF SCH (15:00)
[2016-06-15] MEDS ORDERED: cloNIDine 0.3 MG PATCH* 0.3 MG/24 HR 7 DAY PATCH TRANSDERM SCH (09:00)
== END 2016-06-12 16:45 | disposition home or self-care (01) | DRG 102 ==
LOC: ED 15:10 → ICU 18:24 → INTOOBSV 18:24 → MED 06-10 14:42 → UNDODISIN 06-12 14:45
PROVIDERS: ADMIT Internal Medicine; ATTEND Hospitalist
DX: G43.919 Migraine, unspecified, intractable, without status migrainosus (principal); I12.0 Hypertensive chronic kidney disease with stage 5 chronic kidney disease or end stage renal disease; N18.6 End stage renal disease; Q87.81 Alport syndrome; I16.0 Hypertensive urgency; R00.0 Tachycardia, unspecified; H91.93 Unspecified hearing loss, bilateral; F32.9 Major depressive disorder, single episode, unspecified; E87.5 Hyperkalemia; D63.1 Anemia in chronic kidney disease; Z88.5 Allergy status to narcotic agent; Z97.4 Presence of external hearing-aid; Z84.1 Family history of disorders of kidney and ureter; Z87.891 Personal history of nicotine dependence; Z99.2 Dependence on renal dialysis
CPT/HCPCS: 36415; 80048; 80053; 80164; 83605; 83735; 84132; 85014; 85018; 85025; 85060; 85610; 85730; 90945; 93005; A9270-GY; G0257; G0378; J0360; J0780; J0885; J1100; J1170; J1644; J2060; J2405

== ENCOUNTER 2016-08-20 11:11 | Day surgery (SDC) | payer BC, MEDICARE ==
[~2016-08-20 11:11] MED LIST: Buffered Lidocaine 0.9% SYRIN* 5 ML/SYR SYRINGE INTRADERM ONE; NS 0.45% 1000 ML BAG* 1,000 ML IV SCH
[2016-08-20] MEDS ORDERED: ceFAZolin 2 GM PREMIX(*) 2 GM/50 ML BAG IVPB ONE (11:41)
[2016-08-20] MEDS ORDERED: Buffered Lidocaine 0.9% SYRIN* 5 ML/SYR SYRINGE ONE (11:41)
[2016-08-20] MEDS ORDERED: Midazolam* 1 MG/ML 2 ML VIAL (2 MG) ONE (13:57)
[2016-08-20] MEDS ORDERED: Bupivacaine 0.5% W/EPI SDV* 30 ML VIAL ONE (14:35)
[2016-08-20] MEDS ORDERED: Lidocaine 1% INJ* 10 MG/ML 30 ML SDV ONE (14:36)
[2016-08-20] MEDS ORDERED: fentaNYL* 50 MCG/ML 2 ML VIAL (100 MCG VIAL) ONE (14:53)
[2016-08-20] MEDS ORDERED: Lidocaine 2% PF * 5 ML VIAL ONE (14:54)
[2016-08-20] MEDS ORDERED: Propofol* 10 MG/ML 20 ML BTL IV PUSH ONE (14:54)
[2016-08-20] MEDS ORDERED: Ondansetron INJ* 2 MG/ML VIAL ONE (14:54)
[2016-08-20] MEDS ORDERED: Famotidine IV* 10 MG/ML 2 ML (20 mg) ONE (14:54)
[2016-08-20] MEDS ORDERED: Acetaminophen TAB* 325 MG PO PRN (15:09)
[2016-08-20] MEDS ORDERED: Ondansetron INJ* 2 MG/ML VIAL IV PRN (15:09)
[2016-08-20] MEDS ORDERED: fentaNYL* 50 MCG/ML 2 ML VIAL (100 MCG VIAL) IV PRN (15:09)
[2016-08-20] MEDS ORDERED: PROCHLORPERAZINE INJ 5 MG/ML 2 ML VIAL IV PRN (15:09)
[2016-08-20] MEDS ORDERED: DiMENhydriNATE IV* 50 MG/ML VIAL IV PUSH PRN (15:09)
[2016-08-20] MEDS ORDERED: Bacitracin OINTMENT* 1 TUBE ONE (15:21)
[2016-08-20] MEDS ORDERED: KETAMINE HCL* 50 MG/ML 10 ML VIAL ONE (15:27)
--- NOTE | 2016-08-20 15:31 | PN ---
Progress Note - Progress Note Note: Brief Operative Note: Preop Dx: PD catheter not being used Postop Dx: same Procedure: removal of PD catheter Anesthesia: local/MAC Surgeon: Sadie Asst: none EBL: none Fluids: 100 ml Drains: none Specimen:none
[2016-08-20 17:10] VITALS: BP 156/72
--- NOTE | 2016-08-21 03:33 | OP ---
CC: Christa Frey MD; Jose De Jesus Arana MD * DATE OF OPERATION: 08/20/16 - [facility] DATE OF : 89 SURGEON: Jez Noel MD LANGUAGE PATHOLOGIST: None. ANESTHESIOLOGIST: Dr. Lucio. ANESTHESIA: Local MAC anesthesia. PRE-OP DIAGNOSIS: Inability to tolerate peritoneal dialysis. POST-OP DIAGNOSIS: Inability to tolerate peritoneal dialysis. OPERATIVE PROCEDURE: Removal of peritoneal dialysis catheter. SPECIMENS: None. DRAINS: None. DESCRIPTION OF PROCEDURE: The patient was identified in the preoperative area, marked, brought to the operating room, placed on the operating table in supine position. Preoperative antibiotics were given. Sequential devices were placed on bilateral lower extremities. Gentle sedation was given. The patient's abdomen was prepped and draped in a standard surgical fashion. Time-out was performed. A longitudinal incision was made overlying the catheter at the area just left to the lower midline. We dissected down to the tubing; this extended below the rectus fascia, which was incised and the cuff freed up from the underlying musculature. The tubing was cut and the catheter was removed from the abdomen. The anterior fascia was then reapproximated with 0 Polysorb suture in figure-of - eight fashion and attention was turned towards the area where the more proximal cuff was. A small incision was made of this, the tubing was brought up into this incision and the cuff freed up from the underlying subcutaneous tissue and the tubing was then removed in its entirety. Wounds were both irrigated. Hemostasis excellent and incisions closed with 4-0 Monocryl subcuticular sutures. Steri-Strips and sterile dressings were applied and triple antibiotic ointment was applied to the exit site of the previous catheter. Patient tolerated the procedure well, was transferred to the PACU in stable condition. [id number]/[facility] #: [id number] [facility]
== END 2016-08-20 17:11 | disposition home or self-care (01) ==
LOC: OR 11:11
PROVIDERS: ATTEND Surgery
DX: I12.9 Hypertensive chronic kidney disease with stage 1 through stage 4 chronic kidney disease, or unspecified chronic kidney disease (principal); N18.6 End stage renal disease; Z87.891 Personal history of nicotine dependence; D64.9 Anemia, unspecified; Z99.2 Dependence on renal dialysis
CPT/HCPCS: 36415; 86703; A9270-GY; J0690; J2001; J2250; J2405; J2704; J3010

== ENCOUNTER 2016-09-02 06:05 | Inpatient (IN) | payer BC, MEDICARE ==
[2016-09-02] MEDS ORDERED: Ondansetron INJ* 2 MG/ML VIAL IV ONE (06:25)
[2016-09-02] MEDS ORDERED: HYDROmorphone* 1 MG/ML 1 ML SYR IV ONE (06:25)
[2016-09-02] MEDS ORDERED: LORazepam INJ* 2 MG/ML 1 ML VIAL IV PUSH ONE (06:25)
[2016-09-02] MEDS ORDERED: NS 0.9% 1000 ML* 1,000 ML IV ONE (06:25)
[2016-09-02] MEDS ORDERED: Ondansetron INJ* 2 MG/ML VIAL ONE (06:40)
[2016-09-02 06:50] LABS: Hematocrit 30 % (42-52); Hemoglobin 9.5 g/dl (14.0-18.0); Mean Corpuscular HGB Conc 32 g/dl (31-36); Mean Corpuscular Hemoglobin 30 pg (27-31); Mean Corpuscular Volume 93 fL (80-94); Mean Platelet Volume 7 um3 (7.4-10.4); Red Cell Distribution Width 14 % (10.5-15)
[2016-09-02 06:54] LABS: Albumin 3.8 g/dL (3.2-5.2); BUN/Creatinine Ratio 5.5 (8-20); EGFR African American 6.2 (>60); EGFR Non-African American 4.8 (>60); Potassium 5.6 mmol/L (3.5-5.0); Total Bilirubin 0.8 mg/dL (0.2-1.0); Total Protein 6.8 g/dL (6.4-8.9)
[2016-09-02 06:56] LABS: Troponin I 0.03 ng/mL (<0.04)
--- NOTE | 2016-09-02 07:40 | RAD ---
HISTORY: Headache, and stage renal disease COMPARISONS: March 27, 2015 TECHNIQUE: Multiple contiguous axial CT scans were obtained of the head without intravenous contrast. FINDINGS: The study is limited by patient motion artifact. HEMORRHAGE/INFARCT: There is no hemorrhage or acute infarct. MASSES/SHIFT: There is no mass or shift. EXTRA-AXIAL SPACES: There are no extra-axial fluid collections. SULCI AND VENTRICLES: The sulci and ventricles are normal in size and position for the patient's stated age. CEREBRUM: There are no focal parenchymal abnormalities. BRAINSTEM: There are no focal parenchymal abnormalities. CEREBELLUM: There are no focal parenchymal abnormalities. VESSELS: The vessels are grossly normal. PARANASAL SINUSES: The paranasal sinuses are clear. ORBITS: The orbits are unremarkable. BONES AND SOFT TISSUE: No bone or soft tissue abnormalities are noted. OTHER: None IMPRESSION: NO ACUTE INTRACRANIAL PATHOLOGY.
--- NOTE | 2016-09-02 07:52 | RAD ---
HISTORY: Shortness of breath COMPARISONS: May 11, 2016 VIEWS:1: Single frontal portable view of the chest at 6:53 AM FINDINGS: LINES AND TUBES: None. CARDIOMEDIASTINAL SILHOUETTE: The cardiomediastinal silhouette is normal for portable technique. PLEURA: The costophrenic angles are sharp. No pleural abnormalities are noted. LUNG PARENCHYMA: The lungs are clear. ABDOMEN: The upper abdomen is clear. There is no subphrenic gas. BONES AND SOFT TISSUES: No bone or soft tissue abnormalities are noted. IMPRESSION: NO ACTIVE CARDIOPULMONARY DISEASE.
[2016-09-02] MEDS ORDERED: Metoclopramide IV* 5 MG/ML 2 ML VIAL IV ONE (08:22)
[2016-09-02] MEDS ORDERED: diPHENhydraMINE IV* 50 MG/ML 1 ml VIAL (BENADRYL) IV ONE (08:22)
[2016-09-02] MEDS ORDERED: Dexamethasone IV* 8 MG in NS 0.9% 50 ML* 50 ML IVPB SCH (09:00)
--- NOTE | 2016-09-02 10:16 | UC ---
Tanja Alejandro Thomas, scribed for Ankit Cardona MD on 09/02/16 at 0717 . Progress - Progress Note Progress Note: Patient is signed off from Dr. Parson to Dr. Cardona at [address] Brain. Patient still has a a TEIXEIRA. He received pain meds and has been periodically sleeping. He is on hemodialysis, previously on abdominal dialysis. He has a fistula. The documentation as recorded by the Tanja florence Thomas accurately reflects the service I personally performed and the decisions made by , Ankit Cardona MD.
--- NOTE | 2016-09-02 10:20 | ED ---
Tanja Alejandro Thomas, scribed for Ankit Cardona MD on 09/02/16 at 0828 . Abdominal Pain/Male - HPI Summary HPI Summary: Patient is signed off from Dr. Parson to Dr. Cardona at [address] Brain. Patient still has a TEIXEIRA. He received pain meds and has been periodically sleeping. He is on hemodialysis and previously on peritoneal dialysis. He has an AV fistula. - History of Current Complaint Chief Complaint: EDNauseaVomitDiarrh Stated Complaint: SOB/VOMITING/MIGRAINE Time Seen by Provider: 09/02/16 08:11 Pain Intensity: 9 - Allergies/Home Medications Allergies/Adverse Reactions: Allergies Allergy/AdvReac Type Severity Reaction Status Date / Time Hydrocodone [From Vicodin] AdvReac Intermediate TWITCHING Verified 08/20/16 11: 52 PMH/Surg Hx/FS Hx/Imm Hx Previously Healthy: No Endocrine/Hematology History: Reports: Hx Anticoagulant Therapy, Hx Blood Transfusions - February 2016, Hx Anemia Denies: Hx Blood Disorders, Hx Bone Marrow Disease, Hx Diabetes, Hx Systemic Lupus Erythematosus, Hx Sickle Cell Disease, Hx Thyroid Disease, Hx Unexplained Bleeding, Other Endocrine/Hematological Disorders Cardiovascular History: Reports: Hx Embolism - PE, Hx Hypertension - ON MEDICATION FOR, Other Cardiovascular Problems/Disorders - RT.KIDNEY TRANSPLANT FAILED AND REMOVED/DIALYSIS Denies: Hx Aneurysm, Hx Angina, Hx Angioplasty, Hx Auto Implanted Cardiovert Defib, Hx Cardiac Arrest, Hx Cardiomegaly, Hx Congenital Heart Disease, Hx Congestive Heart Failure, Hx Coronary Artery Disease, Hx Deep Vein Thrombosis, Hx Hypercholesterolemia, Hx Hypotension, Hx Pacemaker/ICD, Hx Peripheral Vascular Disease, Hx Rheumatic Fever, Hx Syncope, Hx Valvular Heart Disease Respiratory History: Reports: Hx Pulmonary Edema - FLUID IN LUNGS IN 2016 A COUPLE OF TIMES PER PATIENT, Other Respiratory Problems/Disorders - "left lung repaired for pneumothorax in 2006 Denies: Hx Asthma, Hx Chronic Bronchitis, Hx Chronic Obstructive Pulmonary Disease (COPD), Hx Cystic Fibrosis, Hx Lung Cancer, Hx Pleural Effusion, Hx Pneumonia, Hx Pulmonary Embolism, Hx Seasonal Allergies, Hx Sleep Apnea GI History: Denies: Hx Cirrhosis, Hx Crohn's Disease, Hx Diverticulosis, Hx Gall Bladder Disease, Hx Gastroesophageal Reflux Disease, Hx Gastrointestinal Bleed, Hx Hiatal Hernia, Hx Irritable Bowel, Hx Jaundice, Hx Obstructive Bowel, Hx Ileostomy, Hx Pyloric Stenosis, Hx Ulcer, Other GI Disorders History: Reports: Hx Acute Renal Failure, Hx Chronic Renal Failure, Hx Dialysis, Hx Renal Disease - TRANSPLANT - RT, dialysis every Mon., Wed., Thu., Other Problems/Disorders - DIALYSIS- Denies: Hx Benign Prostatic Hyperplasia, Hx Kidney Infection, Hx Kidney Stones Musculoskeletal History: Reports: Other Musculoskeletal History - UNSURE CURRENTLY AWAITING TEST RESULTS FOR BACK Denies: Hx Arthritis, Hx Back Problems, Hx Bursitis, Hx Congenital Bone Abnormalities, Hx Fibromyalgia, Hx Gout, Hx Orthopedic Injury, Hx Osteoporosis, Hx Scoliosis, Hx Tendonitis Sensory History: Reports: Hx Deafness, Hx Hearing Aid - never wears, Hx Hearing Problem - moderate hearing loss bilat ears Denies: Hx Cataracts, Hx Contacts or Glasses, Hx Eye Injury, Hx Eye Prosthesis, Hx Glaucoma, Hx Legally Blind, Hx Macular Degeneration, Hx Vision Problem, Other Sensory Impairments Opthamlomology History: Denies: Hx Cataracts, Hx Contacts or Glasses, Hx Eye Injury, Hx Eye Prosthesis, Hx Glaucoma, Hx Legally Blind, Hx Macular Degeneration, Hx Vision Problem, Other Sensory Impairments Neurological History: Reports: Hx Headaches, Hx Migraine - 1-2 PER MONTH Denies: Hx Dementia, Hx Developmental Delay, Hx Nerve Disease, Hx Seizures, Hx Spinal Cord Injury, Hx Transient Ischemic Attacks (TIA), Other Neuro Impairments/Disorders Psychiatric History: Reports: Hx Anxiety - NEW-STATES MD IS AWARE, Hx Depression - NEW-STATES MD IS AWARE Denies: Hx Attention Deficit Hyperactivity Disorder, Hx Eating Disorder, Hx Panic Disorder, Hx Post Traumatic Stress Disorder, Hx Inpatient Treatment, Hx Community Mental Health Tx, Hx Schizophrenia, Hx Bipolar Disorder, Hx Suicide Attempt, Hx of Violent Episodes Against Others, Hx Substance Abuse, Other Psychiatric Issues/Disorders - Cancer History Hx Chemotherapy: No Hx Radiation Therapy: No Hx Palliative Cancer Treatment: No - Surgical History Surgery Procedure, Year, and Place: 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[place], [place]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; LEFT LUNG SX FOR REPAIR; LEFT ARM FISTULA FOR DIALISYS 2015, RIGHT CHEST WALL CATH FOR DIALYSIS; RIGHT NEPHRECTOMY - kidney rejected, 2016 Hx Anesthesia Reactions: No - Immunization History Date of Tetanus Vaccine: Unk Date of Influenza Vaccine: Fall 2014 Infectious Disease History: No Infectious Disease History: Denies: Hx Hepatitis, Hx of Known/Suspected MRSA, Hx Shingles, Hx Tuberculosis, History Other Infectious Disease, Traveled Outside the [place] in Last 30 Days - Family History Known Family History: Positive: Other - Mother carrier of alport disease gene Negative: Blood Disorder - Social History Alcohol Use: None Alcohol Amount: Once per month before getting sick in February Hx Substance Use: No Substance Use Type: Reports: None Hx Tobacco Use: Yes Smoking Status (MU): Former Smoker Type: Cigarettes Amount Used/How Often: 1 PPD X 4 YEARS Have You Smoked in the Last Year: No Review of Systems Positive: Headache All Other Systems Reviewed And Are Negative: Yes Physical Exam Triage Information Reviewed: Yes Vital Signs On Initial Exam: Initial Vitals BP 228/115 09/02/16 06:27 Vital Signs Reviewed: Yes - Hermila Coma Scale Coma Scale Total: 15 Diagnostics - Vital Signs Vital Signs Temp Pulse Resp BP Pulse Ox 09/02/16 08:18 53 15 213/121 98 09/02/16 08:01 99 09/02/16 08:00 55 12 99 09/02/16 07:01 62 15 206/112 99 09/02/16 07:00 61 19 99 09/02/16 06:47 22 09/02/16 06:32 96.4 F 58 22 234/117 100 09/02/16 06:31 96.4 F 58 22 234/117 100 09/02/16 06:30 58 15 234/117 95 09/02/16 06:28 59 15 99 09/02/16 06:27 228/115 - Laboratory Lab Results: Lab Results 09/02/16 09/02/16 09/02/16 Range/Units 06:22 06:22 06:22 WBC 11.0 H (3.5-10.8) 10^3/ul RBC 3.20 L (4.0-5.4) 10^6/ul Hgb 9.5 L (14.0-18.0) g/dl Hct 30 L (42-52) % MCV 93 (80-94) fL MCH 30 (27-31) pg MCHC 32 (31-36) g/dl RDW 14 (10.5-15) % Plt Count 449 (150-450) 10^3/ul MPV 7 L (7.4-10.4) um3 Neut % (Auto) 72.3 (38-83) % Lymph % (Auto) 16.8 L (25-47) % [place] % (Auto) 6.5 (1-9) % Eos % (Auto) 2.2 (0-6) % Baso % (Auto) 2.2 H (0-2) % Absolute Neuts (auto) 8.0 H (1.5-7.7) 10^3/ul Absolute Lymphs (auto) 1.9 (1.0-4.8) 10^3/ul Absolute Monos (auto) 0.7 (0-0.8) 10^3/ul Absolute Eos (auto) 0.2 (0-0.6) 10^3/ul Absolute Basos (auto) 0.2 (0-0.2) 10^3/ul Absolute Nucleated RBC 0.01 10^3/ul Nucleated RBC % 0.1 INR (Anticoag Therapy) 0.90 (0.89-1.11) APTT 36.7 H (26.0-36.3) seconds Sodium 137 (133-145) mmol/L Potassium 5.6 H (3.5-5.0) mmol/L Chloride 96 L (101-111) mmol/L Carbon Dioxide 31 (22-32) mmol/L Anion Gap 10 (2-11) mmol/L BUN 69 H (6-24) mg/dL Creatinine 12.51 H (0.67-1.17) mg/dL Est GFR ( Amer) 6.2 (>60) Est GFR (Non-Af Amer) 4.8 (>60) BUN/Creatinine Ratio 5.5 L (8-20) Glucose 88 (70-100) mg/dL Lactic Acid (0.5-2.0) mmol/L Calcium 11.0 H (8.6-10.3) mg/dL Total Bilirubin 0.80 (0.2-1.0) mg/dL AST 21 (13-39) U/L ALT 7 (7-52) U/L Alkaline Phosphatase 36 (34-104) U/L Troponin I 0.03 (<0.04) ng/mL Total Protein 6.8 (6.4-8.9) g/dL Albumin 3.8 (3.2-5.2) g/dL Globulin 3.0 (2-4) g/dL Albumin/Globulin Ratio 1.3 (1-3) 09/02/16 Range/Units 06:22 WBC (3.5-10.8) 10^3/ul RBC (4.0-5.4) 10^6/ul Hgb (14.0-18.0) g/dl Hct (42-52) % MCV (80-94) fL MCH (27-31) pg MCHC (31-36) g/dl RDW (10.5-15) % Plt Count (150-450) 10^3/ul MPV (7.4-10.4) um3 Neut % (Auto) (38-83) % Lymph % (Auto) (25-47) % [place] % (Auto) (1-9) % Eos % (Auto) (0-6) % Baso % (Auto) (0-2) % Absolute Neuts (auto) (1.5-7.7) 10^3/ul Absolute Lymphs (auto) (1.0-4.8) 10^3/ul Absolute Monos (auto) (0-0.8) 10^3/ul Absolute Eos (auto) (0-0.6) 10^3/ul Absolute Basos (auto) (0-0.2) 10^3/ul Absolute Nucleated RBC 10^3/ul Nucleated RBC % INR (Anticoag Therapy) (0.89-1.11) APTT (26.0-36.3) seconds Sodium (133-145) mmol/L Potassium (3.5-5.0) mmol/L Chloride (101-111) mmol/L Carbon Dioxide (22-32) mmol/L Anion Gap (2-11) mmol/L BUN (6-24) mg/dL Creatinine (0.67-1.17) mg/dL Est GFR ( Amer) (>60) Est GFR (Non-Af Amer) (>60) BUN/Creatinine Ratio (8-20) Glucose (70-100) mg/dL Lactic Acid 1.2 (0.5-2.0) mmol/L Calcium (8.6-10.3) mg/dL Total Bilirubin (0.2-1.0) mg/dL AST (13-39) U/L ALT (7-52) U/L Alkaline Phosphatase (34-104) U/L Troponin I (<0.04) ng/mL Total Protein (6.4-8.9) g/dL Albumin (3.2-5.2) g/dL Globulin (2-4) g/dL Albumin/Globulin Ratio (1-3) Result Diagrams: 09/02/16 06:22 09/02/16 06:22 Lab Statement: Any lab studies that have been ordered have been reviewed, and results considered in the medical decision making process. - Radiology CXR Xray Interpretation: No Acute Changes - no active cardiopulmonary disease Radiology Interpretation Completed By: Radiologist - CT CT Brain CT Interpretation: No Acute Changes - NO ACUTE INTRACRANIAL PATHOLOGY. CT Interpretation Completed By: Radiologist - EKG 06:24 Cardiac Rate: Bradycardia - 54 BPM EKG Rhythm: Sinus Bradycardia EKG Interpretation: Hyperactive T-waves Abdominal Pain Fem Course/Dx - Course Course Of Treatment: I spoke with Dr. Arana who is willing to dialyse Mr. Sotelo. He reports that if we can treat the TEIXEIRA the BP will improve. I treated Mr. Sotelo with migraine medications and although it helped his TEIXEIRA ( and also his BP), he continued with a TEIXEIRA and the hospitalistws were called to admit him for intractable TEIXEIRA. - Diagnoses Provider Diagnoses: Intractable complicated migraine, Hypertensive urgency - Provider Notifications Discussed Care Of Patient With: Jose De Jesus Arana Time Discussed With Above Provider: 08:15 Instructed by Provider To: Other - Discussed patient with Dr. Arana, nephrology. Tried to arrange dialysis. Recommended Tx migraine TEIXEIRA rather than BP. 0837: discussed case again with Dr. Arana. - Critical Care Time Critical Care Time: 30-74 min Discharge - Discharge Plan Condition: Stable Disposition: ADMITTED TO [facility] documentation as recorded by the Tanja florence Thomas accurately reflects the service I personally performed and the decisions made by me, Ankit Cardona MD.
[2016-09-02] MEDS ORDERED: traMADol TAB* 50 MG PO PRN (10:44)
[2016-09-02] MEDS ORDERED: PROCHLORPERAZINE INJ 5 MG/ML 2 ML VIAL IV PRN (10:44)
[2016-09-02] MEDS ORDERED: amLODIPine TAB* 5 MG PO SCH (10:45)
[2016-09-02] MEDS ORDERED: hydrALAZINE IV* 20 MG/ML VIAL IV SLOW PU PRN (10:46)
[2016-09-02] MEDS ORDERED: HYDROmorphone* 1 MG/ML 1 ML SYR IV SLOW PU PRN (10:47)
[2016-09-02] MEDS ORDERED: MinoXIDil TAB* 2.5 MG TAB PO SCH (11:00)
[2016-09-02] MEDS ORDERED: Verapamil SR TAB* 240 MG PO SCH (11:00)
[2016-09-02] MEDS: cloNIDine 0.3 MG PATCH* 0.3 MG/24 HR 7 DAY PATCH TRANSDERM SCH (11:00)
[2016-09-02] MEDS ORDERED: Ondansetron INJ* 2 MG/ML VIAL IV PRN (11:23)
[2016-09-02] MEDS ORDERED: LORazepam INJ* 2 MG/ML 1 ML VIAL ONE (11:45)
[2016-09-02] MEDS ORDERED: EPINEPHrine SYR 0.1 MG/ML* (1:10,000) SYRINGE ONE ×2 (11:47→12:15)
[2016-09-02] MEDS ORDERED: fentaNYL* 50 MCG/ML 2 ML VIAL (100 MCG VIAL) ONE (11:56)
[2016-09-02] MEDS ORDERED: Etomidate* 2 MG/ML 20 ML VIAL (40 MG) ONE (11:57)
[2016-09-02] MEDS ORDERED: Propofol* 10 MG/ML 20 ML BTL IV PUSH ONE (12:09)
[2016-09-02] MEDS ORDERED: Calcium CHLORIDE 10% SYRINGE* 1 GM/10 ML ONE (12:18)
[2016-09-02] MEDS ORDERED: nitroGLYCERIN DRIP* 250 ML ONE (12:37)
[2016-09-02] MEDS ORDERED: Propofol* 100 ML ONE (12:42)
[2016-09-02] MEDS ORDERED: Cisatracurium* 2 MG/ML MDV 5 ML ONE ×2 (12:51→12:57)
[2016-09-02] MEDS ORDERED: Labetalol IV* 5 MG/ML 20 ML VIAL ONE (13:13)
[2016-09-02] MEDS ORDERED: Propranolol TAB* 80 MG PO SCH (14:00)
[2016-09-02] MEDS ORDERED: Labetalol IV* 5 MG/ML 20 ML VIAL IV PUSH ONE (14:22)
--- NOTE | 2016-09-02 14:25 | RAD ---
HISTORY: Intubation COMPARISONS: September 02, 2016 VIEWS:1: Single frontal portable view of the chest at 2:14 PM FINDINGS: LINES AND TUBES: An endotracheal tube is noted with the tip overlying the trachea at the level clavicles. A gastric tube is noted with the tip in the left upper quadrant in a prepyloric position CARDIOMEDIASTINAL SILHOUETTE: The cardiomediastinal silhouette is normal for portable technique. PLEURA: The costophrenic angles are sharp. No pleural abnormalities are noted. LUNG PARENCHYMA: There is confluent alveolar aspiration of the right mid and lower lung argueta ABDOMEN: The upper abdomen is clear. There is no subphrenic gas. BONES AND SOFT TISSUES: No bone or soft tissue abnormalities are noted. IMPRESSION: 1. LINES AND TUBES ABOVE. 2. RIGHT MID AND LOWER LUNG CONSOLIDATION.
[2016-09-02] MEDS ORDERED: niCARdipine 0.1MG/ML IVPREMIX* 20 MG/200 ML BAG ONE (14:47)
[2016-09-02] MEDS: niCARdipine 0.1MG/ML IVPREMIX* 20 MG/200 ML BAG IV SCH ×3 (14:49→23:49)
--- NOTE | 2016-09-02 14:55 | PN ---
Critical Care Services: 31 yo male with Hx of severe hypertension, migrane HAs, and renal failure ( dialysis-dependent) who was admitted earlier today for dialysis and BP control and suffered a cardiac arrest on the medical floor, with FULMINANT PULMONARY EDEMA emanating from upper airways. Was successfully resuscitated and brought to ICU. Initial BPs in ICU were markedly elevated, requiring labetalol and nitroglycerin for control. Vital Signs: Temp Pulse Resp BP SpO2 FiO2 98.7 F 136 23 211/144 100 100 Physical Exam: Gen:Unresponsive (on propofol) HEENT:Pupils midposition and reactive. Lungs:No crackles (!) Cardiac: Reg rhythm. No murmurs. Abdomen:Not distended. Extremities:Warm. No cyanosis or edema. Neuro:Unable to evaluate Labs: Significant labs include K=5.6, Creat=12.4, lactate = 1.2 (pre-arrest), WBC=11, Hb=9.5 Studies: CXR: Ground-glass appearance of opacities in both lungs (pulmonary edema) Nutrition: None Impression: Most immediate problem is hypertensive emergency with flash pulmonary edema, which is likely related to the renal failure. Plan: Management will include: 1. IV nicardipine for BP control 2. Targeted temperature management to maintain temp at 36 C for 24 hrs. 3. Hemodialysis today. Prognosis very guarded at this time. Patient's mother is at the bedside and has been informed of current condition and prognosis. Critical Care Time: 75 minutes, including the resuscitation during the cardiac arrest, the assessment and management on ICU admission (not including the time for intubation and placement of a central line).
[2016-09-02] MEDS ORDERED: nitroGLYCERIN DRIP* 25,000 MCG in PREMIX* 0 ML IV SCH (15:00)
[2016-09-02] MEDS: Propofol* 100 ML IV SCH ×3 (15:15→21:53)
[2016-09-02] MEDS ORDERED: Meperidine SYRINGE* 50 MG/ML IV PRN (16:32)
[2016-09-02] MEDS ORDERED: Norepinephrine 16MCG/ML IVPRE* 4,000 MCG/250 ML BAG IV PRN (16:48)
[2016-09-02] MEDS: Meperidine SYRINGE* 50 MG/ML IV PRN ×4 (18:08→23:59)
--- NOTE | 2016-09-02 20:01 | HP ---
CC: Dr. Frey; Dr. Arana * HISTORY AND PHYSICAL: DATE OF ADMISSION: 09/02/16 PRIMARY CARE PHYSICIAN: Dr. Frey. CHIEF COMPLAINT: Nausea, vomiting, headache. HISTORY OF PRESENT ILLNESS: Mr. Sotelo is a 31-year-old man well known to our service with a history of Alport syndrome with a failed renal transplant, currently on HD with hypertension, migraines, and anemia of chronic disease who presents to the hospital with 1 day of nausea, vomiting, and headache. The patient states he has been doing well recently. He has not been hospitalized for this since beginning of June 2016. He recently had his peritoneal dialysis catheter removed by Surgery in the past few weeks which was uneventful. The patient's history is somewhat limited due to medications he received in the emergency department. He is slightly lethargic, history is obtained from him as well as his mother at the bedside. It seemed that he had been doing well until yesterday evening when he acutely developed headache, nausea, and vomiting. He was unable to keep his medications down and continued to be symptomatic throughout the night, prompting him to come to the hospital for further evaluation. As noted above, this is a recurrent issue for the patient; however, he had been doing well recently as it has been about 2-1/2 months since his last hospitalization. In the ED, he continued to have episodes of nausea and was noted to be hypertensive with the systolic reaching as high as 234, the diastolic as high as 121. He was medicated in the emergency department with Depakote, Decadron, Benadryl, Dilaudid, Ativan, Reglan , and Zofran. Dr. Arana was notified and recommended the patient be admitted to the hospital for observation and dialyzed. PAST MEDICAL HISTORY: Alport syndrome, status post failed renal transplant, currently on hemodialysis. Recent PD cath removal, migraines, hypertension, and anemia of chronic disease. PAST SURGICAL HISTORY: Kidney transplant with removal, AV fistula placement, PD catheter placement and removal. HOME MEDICATIONS: 1. Tramadol 50 to 100 mg by mouth every 6 hours as needed for pain. 2. Clonidine 0.3 mg patch transdermal every 7 days. 3. Verapamil 240 mg by mouth daily. 4. Sevelamer 3200 mg by mouth 3 times daily with meals. 5. Ropinirole 0.5 mg by mouth 3 times daily. 6. Propranolol 80 mg by mouth 3 times daily. 7. Zofran 80 mg by mouth every 6 hours as needed for nausea. 8. Omeprazole 20 mg by mouth 3 times daily. 9. Minoxidil 5 mg by mouth 3 times daily. 10. Gabapentin 100 mg by mouth 3 times daily. 11. Fiber 1 capsule by mouth 3 times daily. 12. Depakote 1000 mg by mouth 3 times daily. 13. Nephro-Clement 1 tablet by mouth daily. 14. Amlodipine 10 mg by mouth daily. ALLERGIES: HYDROCODONE. FAMILY HISTORY: Significant for mother with Alport's. SOCIAL HISTORY: The patient denies any tobacco, alcohol, or illicit drug use. REVIEW OF SYSTEMS: Unable to obtain from the patient due to his lethargy. PHYSICAL EXAMINATION GENERAL: The patient is a young man lying in bed, slightly lethargic , with sunglasses in place. VITAL SIGNS: On admission, temperature 96.4, heart rate of 58, respiratory rate of 15, O2 saturation 99% on room air, blood pressure 228/115. HEENT: Normocephalic and atraumatic. Eyes: Pupils equal, round, and reactive to light and accommodation. Anicteric sclerae. ENT: Dry mucous membranes. No cervical adenopathy. LUNGS: Clear to auscultation bilaterally. No wheezes, rales, or rhonchi. CARDIOVASCULAR: Mildly bradycardic, regular rate, regular rhythm. No murmurs, gallops, or rubs. ABDOMEN: Soft, nontender, and nondistended. Bowel sounds positive. EXTREMITIES: No cyanosis, clubbing, or edema. NEUROLOGIC: The patient is slightly lethargic. Moves all 4 extremities. No focal deficits. LABS AND DIAGNOSTICS: White blood cell count of 11, hemoglobin of 9.5, hematocrit of 30, platelets of 449,000. INR of 0.9. Sodium 137, potassium 5.6 , chloride of 96, BUN of 69, creatinine of 12.51, glucose of 88, lactic acid of 1.2, calcium of 11, total bilirubin of 0.8. AST of 21, ALT of 7, troponin of 0.03. ASSESSMENT AND PLAN: Hypertensive urgency, nausea, vomiting, and headache in a 31- year-old male with a history of Alport syndrome, status post failed transplant, on hemodialysis, hypertension, migraines, and anemia of chronic disease. 1. Hypertensive urgency, nausea, vomiting, headache. The patient frequently gets into a cycle where his migraine and nausea and vomiting cause him to be unable to take his home medications. His nausea seems to be a bit better controlled now. We will restart him on his home medications as well as IV hydralazine p.r.n. for high blood pressure, he will go directly to dialysis which should also help with his BPs. If not, we may need to consider IV anti- HTN gtt. As far as his nausea goes, we will continue Compazine p.r.n. for nausea. We will have the Zofran available as well. For his headache, we will continue his home Depakote IV, increase the dose to 500 mg every 8 hours. We will check a valproic acid level. Continue his home tramadol renally dosed and we will have IV Dilaudid available as well. 2. Hyperkalemia. The patient's potassium is mildly elevated, we will recheck after dialysis. 3. Hypercalcemia. Again, calcium level is elevated. We will check a phos and recheck both after dialysis again. 4. Alport syndrome, currently on hemodialysis. The patient will get dialyzed this morning, Dr. Arana is aware. Continue his home Nephro-Clement. Hold sevelamer for now until the patient is able to take p.o. reliably. 5. DVT prophylaxis, SCDs. 6. Code status. The patient is a full code. ADDENDUM: Shortly after patient arrived to the floor he became unresponsive and lost pulses. ABC alert was called and when I arrived the patient was receiving CPR. He had ROSC after 1 mg of Epi and 1 round of CPR. He seemed to became a bit more reactive after narcan given, however his airway was not being protected and the decision was made to intubate. There was significant difficulty locating /visualizing the vocal cords due to excessive frothy, pink discharge due to pulmonary edema. He lost his pulses a second time and regained them with 1 mg of Epi and another round of CPR. The patient was successfully intubated by Dr. Galan and was transferred to the ICU for cooling. TIME SPENT: Total time spent on this admission, 75 minutes, with over half the time spent [id number] with the patient in counseling and coordinating care. [id number]/[facility] #: [id number] [facility] CENTERSaige
[2016-09-02] MEDS ORDERED: Omeprazole CAP* 20 MG PO SCH (21:00)
[2016-09-02] MEDS ORDERED: Ropinirole TAB* 0.5 MG TAB PO SCH (21:00)
[2016-09-03 01:17] LABS: BUN/Creatinine Ratio 5.2 (8-20); Calcium 9.7 mg/dL (8.6-10.3); EGFR African American 9.9 (>60); EGFR Non-African American 7.7 (>60); Phosphorus 4.2 mg/dL (2.5-5.0); Potassium 5.2 mmol/L (3.5-5.0)
[2016-09-03] MEDS: Propofol* 100 ML IV SCH ×7 (01:52→21:55)
[2016-09-03] MEDS: Meperidine SYRINGE* 50 MG/ML IV PRN ×6 (01:55→08:51)
[2016-09-03] MEDS: niCARdipine 0.1MG/ML IVPREMIX* 20 MG/200 ML BAG IV SCH ×2 (03:31→07:36)
[2016-09-03 05:43] LABS: Hematocrit 32 % (42-52); Hemoglobin 10.8 g/dl (14.0-18.0); Mean Corpuscular HGB Conc 34 g/dl (31-36); Mean Corpuscular Hemoglobin 31 pg (27-31); Mean Corpuscular Volume 91 fL (80-94); Mean Platelet Volume 7 um3 (7.4-10.4); Red Blood Count 3.49 10^6/ul (4.0-5.4); Red Cell Distribution Width 15 % (10.5-15); White Blood Count 12.5 10^3/ul (3.5-10.8)
[2016-09-03 06:26] LABS: Albumin 3.3 g/dL (3.2-5.2); BUN/Creatinine Ratio 5.4 (8-20); Calcium 9.4 mg/dL (8.6-10.3); EGFR African American 9.2 (>60); EGFR Non-African American 7.1 (>60); Potassium 4.8 mmol/L (3.5-5.0); Total Bilirubin 0.7 mg/dL (0.2-1.0); Total Protein 6.3 g/dL (6.4-8.9)
--- NOTE | 2016-09-03 07:48 | RAD ---
HISTORY: Pulmonary edema COMPARISONS: September 02, 2016 VIEWS:1: Single frontal portable view of the chest at 6:33 AM FINDINGS: LINES AND TUBES: An endotracheal tube is noted with the tip overlying the trachea at the level clavicles. A gastric tube is noted in the left upper quadrant in a prepyloric position CARDIOMEDIASTINAL SILHOUETTE: The cardiomediastinal silhouette is normal for portable technique. PLEURA: The costophrenic angles are sharp. No pleural abnormalities are noted. LUNG PARENCHYMA: There is patchy alveolar opacification of the right lung base, improved from the previous examination ABDOMEN: The upper abdomen is clear. There is no subphrenic gas. BONES AND SOFT TISSUES: No bone or soft tissue abnormalities are noted. IMPRESSION: 1. LINES AND TUBES ABOVE. 2. PERSISTENT RIGHT BASILAR PATCHY AIRSPACE DISEASE, IMPROVED FROM THE PREVIOUS EXAMINATION
--- NOTE | 2016-09-03 08:49 | PN ---
PROGRESS NOTE: DATE OF SERVICE/DICTATION: 09/02/16 HISTORY: Mr. Sotelo was admitted from the emergency room today because of severe hypertension ass ociated with a migraine headache. He has been noted to have severe hypertension with migraines on a number of occasions in the past. Recently, he had been noted to have target range blood pressures when he has been comfortable. He apparently began to have severe hypertension this morning associat ed with nausea and retching. He was found to have some hyperkalemia, although not horrible. In the emergency room they were having a difficult time controlling his blood pressure and his headache; a nd, as a result, there was an election to go ahead and admit him to the hospital and we planned to p roceed on with hemodialysis here. While the dialysis nurse was getting the treatment ready, he sustained a flash pulmonary edema cardi ac arrest. There was apparently a prolonged resuscitation attempt and he is now intubated and venti lated. He has a heart rhythm in the vicinity of 110. His blood pressure is typically in the 200/12 0 range at this point. Dr. Galan is performing procedures placing lines at the present time. I have discussed the case with his mother and father. I noted to them that his chest x-ray from the emergency room is one did not look like pulmonary edema and that he was not significantly fluid ove rloaded and edematous. So this is likely to be acute/pulmonary edema on the basis of cardiac dysfun ction associated with his severe hypertension. Obviously, I have discussed the case at length with Dr. Galan. [id number]/[facility] #: [id number]
[2016-09-03] MEDS ORDERED: Vitamin B Complex TAB PO SCH (09:00)
[2016-09-03] MEDS ORDERED: Folic Acid TAB* 1 MG PO SCH (09:00)
[2016-09-03] MEDS ORDERED: NON FORMULARY MED* (B-Complex W/ C & Folic Acid [Nephro-Vite 0.8 Mg] 1 TAB) PO SCH (09:00)
--- NOTE | 2016-09-03 10:47 | PN ---
Critical Care Services: Clinically stable overnight, after hemodialysis yesterday. Remains on ventilator and sedated with propofol. Is on nicardipine infusion for BP control , and is receiving targeted temperature management (target = 36 degrees Celcius ) for 24 hours post-event. Vital Signs: Temp Pulse Resp BP SpO2 FiO2 98.7 F 87 22 139/80 100 60 Physical Exam: Gen:Unresponsive (on propofol) HEENT:Pupils midposition and sluggishly reactive. Lungs:Occasional rhonchi. No crackles or wheezes. Abdomen: Not distended. Extremities:No cyanosis or edema. Fluid Balance (Past 24 Hours): 09/03/16 06:59 Intake Total 1016 Output Total 400 Balance +616 Weight 154 lb Intake: Medicated IV 1016 CC - Nicarpidine/Cardene 508 CC - Propofol/Diprivan 508 Output: G Tube 400 [place] 0 NOTE: Output does not include fluid removal with hemodialysis. Labs: 09/02/16 09/03/16 09/03/16 16:55 00:36 05:30 WBC 12.5 Hgb 10.8 Hct 32 Plt Count 316 Sodium 133 130 Potassium 5.2 4.8 Chloride 88 88 Carbon Dioxide 37 H 33 Anion Gap 8 9 BUN 43 H 48 Creatinine 8.30 H 8.85 Glucose 81 97 Lactic Acid 1.7 Calcium 9.7 9.4 Phosphorus 4.2 Total Bilirubin 0.70 AST 31 ALT 12 Alkaline Phosphatase 40 Total Protein 6.3 L Albumin 3.3 Valproic Acid 49.0 Studies: CXR: Pulmonary edema has cleared. Nutrition: None Impression: I think the problem yesterday was not a cardiopulmonary arrest, but was severe respiratory insufficiency due to a hypertensive emergency with "flash" pulmonary edema. Normal lactate post-event is consistent with this not being an arrest, and is a promising sign. Plan: Stop sedation and assess mental status. We can wean off ventilator as soon as patient awakens. Repeat dialysis planned for today. Patients mother present at the bedside, and was informed of current condition. Critical Care Time: 45 minutes.
--- NOTE | 2016-09-03 12:34 | PRO ---
PROCEDURE NOTE: DATE OF PROCEDURE: 09/02/16 - ROOM #ICU-01 PROCEDURE: Endotracheal intubation. The patient is a 31-year-old white male with a history of renal failure and severe hypertension, who was admitted for hemodialysis and suffered a cardiac arrest on the floor and required intubation during the arrest. A size 7-Finnish endotracheal tube was inserted into the airway under videoscopic control and tube position was verified by exhaled capnometry. Following intubation, the tube was secured and the patient was brought to the intensive care unit, and a repeat chest x-ray showed appropriate position for the tip of the tube. [id number]/CPS #: [id number] MTDD
--- NOTE | 2016-09-03 12:34 | PRO ---
PROCEDURE NOTE: DATE OF PROCEDURE: 09/02/16 - ROOM #ICU-01 PROCEDURE: Insertion of a triple lumen central venous catheter. This patient is a 31-year-old white male with a history of renal failure and severe hypertension, who is admitted for hemodialysis and had suffered a cardiac arrest on the floor and was successfully resuscitated and brought to the intensive care unit and required insertion of a central line for medication delivery. A 7.5-Amharic triple-lumen catheter was inserted in the right femoral vein under ultrasound guidance without difficulty. Blood loss was minimal. [id number]/CPS #: [id number] [facility]
[2016-09-03] MEDS ORDERED: cloNIDine 0.3 MG PATCH* 0.3 MG/24 HR 7 DAY PATCH TRANSDERM SCH (15:00)
[2016-09-03] MEDS ORDERED: Acetaminophen SUPP* 650 MG SUPP PR PRN (21:18)
--- NOTE | 2016-09-03 21:23 | PN ---
Hospitalist Progress Note Called for fever tonight 100.6 and tachycardia, b/c sent yesterday, chest xray done this am, ? aspiration PNA, put empircally on zosyn,
[2016-09-04] MEDS: Propofol* 100 ML IV SCH ×3 (00:55→08:19)
[2016-09-04] MEDS: niCARdipine 0.1MG/ML IVPREMIX* 20 MG/200 ML BAG IV SCH ×5 (04:05→23:46)
[2016-09-04 06:10] LABS: Hematocrit 28 % (42-52); Hemoglobin 9.6 g/dl (14.0-18.0); Mean Corpuscular HGB Conc 35 g/dl (31-36); Mean Corpuscular Hemoglobin 32 pg (27-31); Mean Corpuscular Volume 91 fL (80-94); Mean Platelet Volume 8 um3 (7.4-10.4); Red Blood Count 3.05 10^6/ul (4.0-5.4); Red Cell Distribution Width 14 % (10.5-15); White Blood Count 7.9 10^3/ul (3.5-10.8)
[2016-09-04 06:26] LABS: BUN/Creatinine Ratio 5.7 (8-20); Calcium 9.1 mg/dL (8.6-10.3); EGFR African American 10.1 (>60); EGFR Non-African American 7.9 (>60)
[2016-09-04] MEDS: Heparin VIAL(*) 5000 UNITS/ML VIAL (FIVE THOUSAND) SUBCUT SCH ×2 (10:38→20:27)
--- NOTE | 2016-09-04 11:59 | PN ---
Critical Care Services: Had an uneventful evening. Have attempted to discontinue propofol sedation, but patient becomes agitated and does not consistently respond to verbal commands. Vital Signs: Temp Pulse Resp BP SpO2 FiO2 98.8 F 108 17 140/87 100 35 Physical Exam: Gen: Unresponsive, but sedated with propofol. HEENT: Pupils midposition and sluggishly reactive. No jugular venous distension. Lungs: Clear (!) Abdomen: Not distended Extremities:No cyanosis or edema. Fluid Balance (Past 24 Hours): 09/04/16 06:59 Intake Total 1359.4 Output Total 1999 Balance -640.6 Weight 148 lb Intake: IV Fluids 143 NS (0.9%) 38 abx 105 IVPB 150 NS (0.9%) 150 Medicated IV 1066.4 CC - Nicarpidine/Cardene 357.4 CC - Propofol/Diprivan 709 Mose[place] Irrigate Amount 0 Output: NG Tube Drainage Amount 500 G Tube Moseley 0 Other 1500 Other: Other Amount Description dialysis Labs: Laboratory Results - last 24 hr 09/03/16 09/03/16 09/04/16 12:45 12:45 05:50 Sodium 129 Potassium 4.0 Chloride 87 Carbon Dioxide 30 BUN 46 Creatinine 8.11 Glucose 84 Calcium 9.1 Hepatitis B Antibody Reactive Hep Bs Antigen Reactive (prelim) H Negative Hep Bs Antibody, Quant 57.02 09/04/16 05:50 WBC 7.9 Hgb 9.6 Hct 28 Plt Count 266 Studies: None today Nutrition: None Impression: Delirium (i.e., agitated confusion) post-event, but patient does occasionally respond appropriately to verbal commands, which is encouraging. Plan: Will wean and extubate when mental status has improved. Mother present at bedside and informed of current situation. Critical Care Time: 40 minutes
[2016-09-04] MEDS ORDERED: HYDROmorphone* 1 MG/ML 1 ML SYR ONE (12:20)
[2016-09-04] MEDS: Dexmedetomidine* 200 MCG in NS 0.9% 50 ML* 48 ML IVPB SCH ×2 (12:22→17:20)
[2016-09-04] MEDS: HYDROmorphone* 1 MG/ML 1 ML SYR IV SLOW PU PRN ×4 (12:22→23:51)
[2016-09-04] MEDS ORDERED: Lidocaine 2% VISCOUS* 15 ML UDC SWISH SPIT PRN (19:49)
[2016-09-04] MEDS ORDERED: Metoprolol Tartrate IV* 1 MG/ML 5 ML VIAL IV ONE (23:00)
[2016-09-05] MEDS: niCARdipine 0.1MG/ML IVPREMIX* 20 MG/200 ML BAG IV SCH (02:35)
[2016-09-05] MEDS: HYDROmorphone* 1 MG/ML 1 ML SYR IV SLOW PU PRN ×2 (02:40→11:47)
[2016-09-05] MEDS ORDERED: Labetalol IV* 200 MG in NS 0.9% 250 ML* 160 ML IVPB ONE (03:48)
[2016-09-05 06:18] LABS: Hematocrit 20 % (42-52); Hemoglobin 6.7 g/dl (14.0-18.0); Mean Corpuscular HGB Conc 33 g/dl (31-36); Mean Corpuscular Hemoglobin 31 pg (27-31); Mean Corpuscular Volume 93 fL (80-94); Mean Platelet Volume 8 um3 (7.4-10.4); Red Blood Count 2.19 10^6/ul (4.0-5.4); Red Cell Distribution Width 14 % (10.5-15); White Blood Count 5.1 10^3/ul (3.5-10.8)
[2016-09-05 06:19] LABS: Comments Flag Yes
[2016-09-05 06:35] LABS: BUN/Creatinine Ratio 6.5 (8-20); Calcium 8.8 mg/dL (8.6-10.3); EGFR African American 7.8 (>60); Potassium 4.7 mmol/L (3.5-5.0)
[2016-09-05 08:33] LABS: Hematocrit 19 % (42-52)
[2016-09-05 08:39] LABS: Comments Flag Yes
[2016-09-05 08:41] LABS: Hemoglobin 6.5 g/dl (14.0-18.0)
[2016-09-05] MEDS: Heparin VIAL(*) 5000 UNITS/ML VIAL (FIVE THOUSAND) SUBCUT SCH ×2 (09:46→20:31)
[2016-09-05] MEDS ORDERED: Epoetin Alfa* 10,000 UNITS/ML VIAL IV ONE (11:00)
[2016-09-05] MEDS: Labetalol IV* 200 MG in NS 0.9% 250 ML* 160 ML IVPB SCH ×2 (11:08→16:36)
--- NOTE | 2016-09-05 13:11 | PN ---
Critical Care Services: 1. Mental status is improving (is somnolent but arousable and oriented when awake). 2. New problem: sudden drop in Hb/Hct from 9.6/28 to 08/14/19 without change in BP. Has Hx GI bleeding. Vital Signs: Temp Pulse Resp BP SpO2 FiO2 99.2 F 97 20 152/81 100 35 NOTE: Currently on labetalol drip. Physical Exam: Gen:Up in bed and appears comfortable. Lungs: No adventitious sounds. Cardiac: No murmurs. Rhythm regular. Abdomen: Not distended. Extremities: No cyanosis or edema. Rectal: No stool in rectal vault. Fluid Balance (Past 24 Hours): 09/05/16 06:59 Intake Total 2120.9 Output Total Balance 2120.9 Weight 147 lb 0.773 oz Intake: IV Fluids 303.4 NS (0.9%) 198.4 abx valproic acid 105 IVPB 223 NS (0.9%) valproic acid 223 Medicated IV 1284.5 CC - Labetolol/Trandate 43.5 CC - Nicarpidine/Cardene 1047 CC - Propofol/Diprivan 194 Oral 310 Packed Cells Mose[place] Irrigate Amount Output: NG Tube Drainage Amount G Tube Moseley Other Other: Other Amount Description Note: Dialysis today - will try to remove 2 liters. Labs: 09/05/16 09/05/16 05:45 05:45 WBC 5.1 Hgb 6.7 Hct 20 Plt Count 174 Sodium 130 Potassium 4.7 Chloride 91 Carbon Dioxide 24 BUN 66 Creatinine 10.23 Glucose 68 L Calcium 8.8 Studies: None Nutrition: Regular diet Impression: 1. Recovering from the event of 09/01. 2. Source of abrupt drop in Hb/Hct unclear - no evidence of hemolysis, and no signs of or GI bleeding at present. Other possibilities include retroperitoneal hemorrhage and bladder hemorrhage - However, lack of hemodynamic change makes blood loss questionable. Plan: 1. Transfuse to Hb . 7.0 2. Catheterize bladder to look for blood loss. 3. If necessary, do CT scan to look for retroperitoneal blood loss. 4. Hemodialysis today. Patient's mother present at bedside and informed of the current issues. Critical Care Time: 40 minutes (not including time spent with family).
[2016-09-05 14:21] LABS: Hematocrit 23 % (42-52); Hemoglobin 7.4 g/dl (14.0-18.0)
[2016-09-05] MEDS: Gabapentin CAP(*) 100 MG PO SCH ×2 (14:25→20:14)
[2016-09-05] MEDS: MinoXIDil TAB* 2.5 MG TAB PO SCH ×2 (14:26→20:22)
[2016-09-05] MEDS: Ropinirole TAB* 0.5 MG TAB PO SCH ×2 (14:27→20:23)
[2016-09-05] MEDS: Propranolol TAB* 80 MG PO SCH ×2 (14:27→20:23)
[2016-09-05] MEDS: Sevelamer TAB* 800 MG PO SCH ×2 (14:32→18:07)
[2016-09-06] MEDS: Labetalol IV* 200 MG in NS 0.9% 250 ML* 160 ML IVPB SCH (01:38)
[2016-09-06] MEDS: HYDROmorphone* 1 MG/ML 1 ML SYR IV SLOW PU PRN ×7 (02:25→20:16)
[2016-09-06] MEDS ORDERED: traMADol TAB* 50 MG PO PRN ×2 (04:18→04:58)
[2016-09-06 05:29] LABS: Hematocrit 25 % (42-52); Hemoglobin 8.2 g/dl (14.0-18.0); Mean Corpuscular HGB Conc 33 g/dl (31-36); Mean Corpuscular Hemoglobin 31 pg (27-31); Mean Corpuscular Volume 92 fL (80-94); Mean Platelet Volume 8 um3 (7.4-10.4); Red Cell Distribution Width 14 % (10.5-15); White Blood Count 5.9 10^3/ul (3.5-10.8)
[2016-09-06 05:40] LABS: BUN/Creatinine Ratio 5.4 (8-20); Calcium 9.5 mg/dL (8.6-10.3); EGFR African American 11.6 (>60); EGFR Non-African American 9.1 (>60); Potassium 4.6 mmol/L (3.5-5.0)
[2016-09-06] MEDS ORDERED: Ondansetron INJ* 2 MG/ML VIAL ONE (06:37)
[2016-09-06] MEDS: Ondansetron INJ* 2 MG/ML VIAL IV PRN (06:39)
[2016-09-06] MEDS: MinoXIDil TAB* 2.5 MG TAB PO SCH ×2 (09:10→22:09)
[2016-09-06] MEDS: Gabapentin CAP(*) 100 MG PO SCH ×3 (09:11→22:10)
[2016-09-06] MEDS: Ropinirole TAB* 0.5 MG TAB PO SCH ×3 (09:11→22:10)
[2016-09-06] MEDS: Heparin VIAL(*) 5000 UNITS/ML VIAL (FIVE THOUSAND) SUBCUT SCH ×2 (09:11→22:11)
[2016-09-06] MEDS: Sevelamer TAB* 800 MG PO SCH ×3 (09:11→17:57)
[2016-09-06] MEDS: Propranolol TAB* 80 MG PO SCH ×3 (09:12→22:10)
--- NOTE | 2016-09-06 11:06 | PN ---
Critical Care Services: Had an uneventful evening. No explanation for the sudden drop in hemoglobin yesterday, but blood loss is unlikely (no apparent source, no hemodynamic problem, and tolerated 2-liter removal by hemodialysis yesterday). Hb increased from 6.5 to 7.4 after one unit packed RBCs yesterday, and Hb is 8.2 this AM. Patient's mental status is back to baseline. Vital Signs: Temp Pulse Resp BP SpO2 FiO2 99.4 F 87 19 124/69 97 35 Physical Exam: Gen:Alert, oriented, and breathing comfortably Lungs:Clear Cardiac: Reg rhythm. No murmurs. Abdomen:Not distended Extremities:No cyanosis or edema. Fluid Balance (Past 24 Hours): 09/06/16 06:59 Intake Total 1468 Output Total Balance 1468 Weight Intake: IV Fluids 339 NS (0.9%) 139 valproic acid 200 IVPB 120 NS (0.9%) 20 valproic acid 100 Medicated IV 266 CC - Labetolol/Trandate 266 Oral 450 Packed Cells 293 Moseley Irrigate Amount Output: Moseley Other Other: Date of Last Bowel 09/06 Movement # Bowel Movements 1 Estimated Stool Amount Medium Other Amount Description NOTE: Fluid removed by dialysis not recorded. Labs: 09/06/16 05:00 WBC 5.9 Hgb 8.2 Hct 25 Plt Count 217 Sodium 133 Potassium 4.6 Chloride 88 Carbon Dioxide 33 BUN 39 Creatinine 7.20 Glucose 83 Calcium 9.5 Studies: None today Nutrition: Oral diet Impression: No evidence of neurologic sequelae from event on 09/01. BP well controlled, and no evidence of left heart failure. Plan: Transfer out of ICU today. Can probably be discharged soon (when off O2, and can ambulate without assistance). Time: 35 minutes devoted to patient examination and transfer.
[2016-09-06] MEDS: traMADol TAB* 50 MG PO PRN ×2 (11:57→20:27)
[2016-09-07] MEDS: Gabapentin CAP(*) 100 MG PO SCH ×3 (01:15→12:13)
[2016-09-07 07:10] LABS: Hematocrit 24 % (42-52); Mean Corpuscular HGB Conc 34 g/dl (31-36); Mean Corpuscular Hemoglobin 31 pg (27-31); Mean Corpuscular Volume 91 fL (80-94); Mean Platelet Volume 8 um3 (7.4-10.4); Red Blood Count 2.63 10^6/ul (4.0-5.4); Red Cell Distribution Width 14 % (10.5-15); White Blood Count 4.8 10^3/ul (3.5-10.8)
[2016-09-07 07:27] LABS: BUN/Creatinine Ratio 6.7 (8-20); Calcium 9.2 mg/dL (8.6-10.3); EGFR African American 8.1 (>60); EGFR Non-African American 6.3 (>60); Potassium 4.7 mmol/L (3.5-5.0)
[2016-09-07] MEDS: Sevelamer TAB* 800 MG PO SCH ×3 (09:14→17:29)
[2016-09-07] MEDS: Heparin VIAL(*) 5000 UNITS/ML VIAL (FIVE THOUSAND) SUBCUT SCH ×2 (09:15→21:43)
[2016-09-07] MEDS: Ropinirole TAB* 0.5 MG TAB PO SCH ×3 (09:15→20:18)
[2016-09-07] MEDS: Propranolol TAB* 80 MG PO SCH ×3 (09:15→20:19)
[2016-09-07] MEDS: MinoXIDil TAB* 2.5 MG TAB PO SCH ×2 (09:15→20:19)
[2016-09-07] MEDS: HYDROmorphone* 1 MG/ML 1 ML SYR IV SLOW PU PRN ×5 (09:16→22:49)
--- NOTE | 2016-09-07 12:39 | PN ---
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 He experienced flash pulmonary edema during dialysis and subsequent cardiac arrest. Spontaneous circulation was obtained and he was intubated and ventilated. He was extubated 09/04 and transferred from ICU to the medical floor yesterday. 09/04 he had a sudden drop in H/H for unclear reasons which responded to 1U PRBCs and has been stable since without evidence of bleeding. Patient is longer requiring supp O2 and denies CP or SOB. His strength is improving, no focal neurologic deficits and personality has returned to baseline. He reports bilateral foot and lower leg numbness but without weakness. This has been going on for several months and has been discussed with his neurologist. He has had CT of [place] and it appears TSH and vit B12 testing was recently completed and normal. He has been prescribed Gabapentin and stopped a couple of weeks ago due to c/o double vision and muscle twitching. Objective Active Medications: Clonidine HCl (Csvakgkk-Hwf-1 0.3 Mg Patch*) 0.3 mg TRANSDERM Q7D [facility] Last Admin: 09/02/16 11:00 Dose: 0.3 mg Heparin Sodium (Porcine) (Heparin Vial(*)) 5,000 units SUBCUT Q12HR [facility] Last Admin: 09/07/16 09:15 Dose: 5,000 units Hydromorphone HCl (Dilaudid Iv*) 1 mg IV SLOW PU Q2H PRN PRN Reason: PAIN Last Admin: 09/07/16 12:05 Dose: 1 mg Valproic Acid 500 mg/ Sodium (Chloride) 105 mls @ 210 mls/hr IVPB 0500,1300, 2100 [facility] Last Admin: 09/07/16 05:26 Dose: 210 mls/hr Lidocaine (Xylocaine 2% Viscous*) 20 ml SWISH SPIT TID PRN PRN Reason: pharyngitis Last Admin: 09/04/16 20:06 Dose: 20 ml Minoxidil (Loniten Tab*) 5 mg PO BID [facility] Last Admin: 09/07/16 09:15 Dose: 5 mg Ondansetron HCl (Zofran Inj*) 4 mg IV Q4H PRN PRN Reason: NAUSEA Last Admin: 09/06/16 06:39 Dose: 4 mg Propranolol HCl (Inderal Tab*) 80 mg PO TID [facility] Last Admin: 09/07/16 09:15 Dose: 80 mg Ropinirole HCl (Requip Tab*) 0.5 mg PO TID [facility] Last Admin: 09/07/16 09:15 Dose: 0.5 mg Sevelamer Carbonate (Renvela Tab*) 3,200 mg PO TID WITH MEALS [facility] Last Admin: 09/07/16 09:14 Dose: 3,200 mg Tramadol HCl (Ultram*) 50 mg PO Q6H PRN PRN Reason: PAIN Last Admin: 09/06/16 20:27 Dose: 50 mg Vital Signs: Temp Pulse Resp BP Pulse Ox 98.6 F 78 18 131/60 90 09/07/16 12:19 09/07/16 12:19 09/07/16 12:19 09/07/16 12:19 09/07/16 12:19 Oxygen Devices in Use Now: None Appearance: Well appearing young gentleman in NAD Respiratory: Symmetrical Chest Expansion and Respiratory Effort, Clear to Auscultation Cardiovascular: NL Sounds; No Murmurs; No JVD, RRR Abdominal: NL Sounds; No Tenderness; No Distention Extremities: No Edema Skin: No Rash or Ulcers Neurological: Alert and Oriented x 3 Result Diagrams: 09/07/16 06:51 09/07/16 06:51 Additional Lab and Data: . Assess/Plan/Problems-Billing Assessment: This is a 31 yo gentleman with Alport syndrome as associated ESRD who presented with hypertensive urgency and sustained flash pulmonary edema and cardiac arrest now transferred from ICU. - Patient Problems (1) Cardiac arrest Comment: Secondary to flash pulmonary edema s/p extubation without residual neurologic deficits Strength is improving No longer requiring supp O2 (2) Hypertensive urgency Comment: resolved, but with residual TEIXEIRA (3) Anemia in end-stage renal disease Comment: Acute on chronic Now stable following 1U PRBCs (4) Alport syndrome Comment: Complications of ERSD, hearing loss (5) ESRD (end stage renal disease) Comment: Followed by Dr Arana Recently initiated HD after several years with [facility] HD scheduled for tomorrow (Mon) (6) Neuropathic pain Comment: w/u initiated with Dr Mike Unable to tolerate gabapentin Will start Lyrica, discussed appropriate dosing with pharmacy (7) Full code status Status and Disposition: Inpatient. Anticipate possible discharge tomorrow
[2016-09-07] MEDS: Pregabalin CAP(*) 25 MG PO SCH (17:29)
[2016-09-07] MEDS: traMADol TAB* 50 MG PO PRN (22:43)
[2016-09-07] MEDS: Omeprazole CAP* 20 MG PO SCH (22:43)
[2016-09-07] MEDS ORDERED: Calcium Carbonate CHEW TAB* 500 MG (TUMS) PO PRN (23:29)
[2016-09-08 06:48] LABS: BUN/Creatinine Ratio 6.6 (8-20); EGFR African American 6.5 (>60); EGFR Non-African American 5.1 (>60)
[2016-09-08 07:05] LABS: Potassium 4.8 mmol/L (3.5-5.0)
[2016-09-08] MEDS: Sevelamer TAB* 800 MG PO SCH ×3 (08:12→16:34)
[2016-09-08] MEDS: HYDROmorphone* 1 MG/ML 1 ML SYR IV SLOW PU PRN ×6 (08:24→23:56)
[2016-09-08] MEDS: Ropinirole TAB* 0.5 MG TAB PO SCH ×3 (08:29→20:36)
[2016-09-08] MEDS: MinoXIDil TAB* 2.5 MG TAB PO SCH ×2 (08:29→20:35)
[2016-09-08] MEDS: Propranolol TAB* 80 MG PO SCH ×3 (08:30→20:38)
[2016-09-08] MEDS: Heparin VIAL(*) 5000 UNITS/ML VIAL (FIVE THOUSAND) SUBCUT SCH ×2 (08:30→21:14)
[2016-09-08] MEDS: Omeprazole CAP* 20 MG PO SCH ×2 (08:30→20:36)
[2016-09-08] MEDS ORDERED: Epoetin Alfa* 10,000 UNITS/ML VIAL IV ONE (12:00)
[2016-09-08] MEDS ORDERED: Heparin DIALYSIS ONLY(*) 1,000 UNITS/ML VIAL DIALYSIS ONE (12:00)
--- NOTE | 2016-09-08 16:34 | PN ---
Hospitalist Progress Note Patient developed worsening TEIXEIRA and nausea following HD. Discharge was cancelled. Treat with Dilaudid and Zofran, will try to add amitriptyline for additional migraine prophylaxis.
[2016-09-08] MEDS: Ondansetron INJ* 2 MG/ML VIAL IV PRN (16:36)
[2016-09-08] MEDS: Pregabalin CAP(*) 25 MG PO SCH (18:50)
[2016-09-08] MEDS: traMADol TAB* 50 MG PO PRN (20:34)
[2016-09-08] MEDS: Divalproex DR TAB(*) 500 MG PO SCH (20:38)
[2016-09-08] MEDS ORDERED: Amitriptyline TAB* 25 MG PO SCH (21:00)
--- NOTE | 2016-09-09 02:34 | DS ---
ADDENDUM NOW INCLUDED ON THIS REPORT - ESIGNED BEFORE ADJUSTMENT CC: Dr. Frey; Dr. Arana; Dr. Mike * DISCHARGE SUMMARY: DATE OF ADMISSION: 09/02/16 DATE OF DISCHARGE: 09/08/16 PRIMARY CARE PROVIDER: Dr. Frey. CARDIOVASCULAR TECH: Dr. Arana. SEATING AND MOBILITY TECHNOLOGIST: Dr. Galan. DISCHARGING PROVIDER: ROSARIO Madison SUPERVISING PHYSICIAN: Dr. Camelia Siegel * (DICTATED BY ROSARIO MADISON) PRIMARY DISCHARGE DIAGNOSES: 1. Cardiac arrest secondary to flash pulmonary edema. 2. Hypertensive emergency. 3. Acute on chronic anemia in the setting of end-stage renal disease, status post transfusion of 1 unit of packed red blood cells. SECONDARY DISCHARGE DIAGNOSES: 1. Alport's syndrome causing end-stage renal disease and hearing loss. 2. End-stage renal disease, followed by Dr. Arana on hemodialysis Thursday, , Thursday, thus patient is receiving dialysis prior to discharge today. 3. Neuropathic pain with Lyrica replacing gabapentin as a change during this hospital stay. DISCHARGE MEDICATIONS: 1. Amlodipine 10 mg p.o. daily. 2. Vitamin B complex one tablet p.o. daily. 3. Depakote 1000 mg p.o. twice daily. 4. Fiber one capsule p.o. twice daily. 5. Minoxidil 5 mg p.o. twice daily. 6. Omeprazole 20 mg p.o. twice daily. 7. Zofran 8 mg p.o. q.6h. as needed for nausea. 8. Lyrica 25 mg p.o. nightly. 9. Propranolol 80 mg p.o. 3 times daily. 10. Requip 0.5 mg p.o. twice daily. 11. Renvela 3200 mg p.o. t.i.d. with meals. 12. Verapamil 240 mg p.o. daily. 13. Clonidine 0.3 mg transdermal patch applied every 7 days. 14. Tramadol 50 to 100 mg p.o. q.6h. as needed for pain. MEDICATION CHANGES: 1. Discontinue gabapentin. 2. Start Lyrica. HOSPITAL IMAGIN. Chest x-ray, 09/02/16, shows no acute process. 2. CT brain shows no acute intracranial pathology. 3. Chest x-ray, 09/02/16, shows right mid and lower lung consolidation. 4. Chest x-ray, 09/03/16, shows persistent right basilar patchy airspace disease, improved from prior exam. HOSPITAL COURSE: This is a 31-year-old gentleman with end-stage renal disease secondary to Alport syndrome following a failed renal transplant with associated hypertension and chronic anemia, who presented to the emergency department with complaints of nausea, vomiting, and headache. His systolic blood pressure was noted to be greater than 200 mmHg in the emergency department. Dr. Arana, primary home health care coordinator, was contacted at the time of admission, recommended dialysis. The patient subsequently experienced flash pulmonary edema during or around the dialysis resulting in a cardiac arrest. CPR efforts resulted in return of spontaneous circulation. The patient was subsequently intubated and cooled in the ICU. The patient was extubated on . The patient did experience an unexplained drop in hemoglobin on approximately hospital day 3 and responded to 1 unit of packed red blood cells without further variation. There were no obvious sources of bleeding at the time. His blood pressure has been since well controlled and his mental status is improved back to baseline following extubation. There is no focal neurologic deficit following extubation and resuscitation effort. The patient has been complaining of bilateral lower leg and foot numbness that has workup initiated by Dr. Mike. Additional screening labs including TSH and vitamin B12 were unremarkable and patient has reportedly had a CT of the lumbar spine at [facility] without obvious pathology. He was started on gabapentin for symptomatic relief, but that caused changes to his vision as well as severe muscle spasms. He was subsequently switched to Lyrica during his hospital stay. DISPOSITION AND FOLLOWUP PLAN: The patient is being discharged to home. He requires followup with Dr. Arana within the next week following this hospital stay. He is to resume his typical dialysis schedule of Thursday, , Thursday and he is being dialyzed today, which is a Thursday, prior to discharge. Medication changes as outlined above and also recommend followup with his primary care provider regarding this hospital stay and with Dr. Mike regarding his complaints of neuropathy as previously scheduled. ROSARIO MADISON ADDENDUM: DATE OF ADMISSION: 09/02/16 DATE OF DISCHARGE: 09/09/16 Please refer to complete discharge summary from 09/08/16 with the following addendum: The patient developed worsening headache with accompanying nausea during hemodialysis and for this reason discharge was canceled. The patient's headache was managed with antiemetics and narcotic analgesics with good effect. His blood pressure remains stable and no additional symptoms or changes in his status developed overnight. Amitriptyline was added for additional migraine prophylaxis, which he seems to tolerate well. Phone message was left with the office of Dr. Mike to try to expedite the followup appointment regarding additional management for his migraine headaches and neuropathic leg pain. Please see the following discharge medication list below to which amitriptyline has been added. DISCHARGE MEDICATIONS: 1. Amitriptyline 25 mg p.o. at bedtime. 2. Amlodipine 10 mg p.o. daily. 3. Depakote 1000 mg p.o. twice daily. 4. Minoxidil 5 mg p.o. twice daily. 5. Omeprazole 20 mg p.o. twice daily. 6. Zofran 8 mg p.o. q.6 hours as needed for nausea. 7. Lyrica 25 mg p.o. daily. 8. Propranolol 80 mg p.o. 3 times daily. 9. Requip 0.5 mg p.o. twice daily. 10. Renvela 3200 mg p.o. 3 times daily. 11. Verapamil 240 mg p.o. daily. 12. Clonidine patch 0.3 mg transdermal daily. 13. Oxycodone 5 mg p.o. q.6 hours as needed for severe headache. 14. Tramadol 50 to 100 mg p.o. q.6 hours as needed for pain. ROSARIO MADISON [id number]/CPS #: [id number]/CPS #: [id number] LUIS M
[2016-09-09] MEDS: Sevelamer TAB* 800 MG PO SCH ×2 (08:55→12:49)
[2016-09-09] MEDS: Propranolol TAB* 80 MG PO SCH (08:58)
[2016-09-09] MEDS: Ropinirole TAB* 0.5 MG TAB PO SCH (08:58)
[2016-09-09] MEDS: Divalproex DR TAB(*) 500 MG PO SCH (08:58)
[2016-09-09] MEDS: Omeprazole CAP* 20 MG PO SCH (08:58)
[2016-09-09] MEDS: MinoXIDil TAB* 2.5 MG TAB PO SCH (08:58)
[2016-09-09] MEDS: Heparin VIAL(*) 5000 UNITS/ML VIAL (FIVE THOUSAND) SUBCUT SCH (08:58)
[2016-09-09] MEDS ORDERED: oxyCODONE TAB* 5 MG TAB PO PRN (09:06)
--- NOTE | 2016-09-09 09:16 | PN ---
Subjective Date of Service: 09/09/16 Interval History: Patient had worsening TEIXEIRA and nausea yesterday associated with dialysis. This am , he reports his TEIXEIRA and nausea are still present, but improved. His appetite is improved as well. Objective Active Medications: Amitriptyline HCl (Elavil Tab*) 25 mg PO BEDTIME [facility] Last Admin: 09/08/16 20:36 Dose: 25 mg Calcium Carbonate (Tums*) 500 mg PO BID PRN PRN Reason: HEARTBURN Last Admin: 09/08/16 00:10 Dose: 500 mg Clonidine HCl (Wpagudtz-Mtg-5 0.3 Mg Patch*) 0.3 mg TRANSDERM Q7D [facility] Last Admin: 09/02/16 11:00 Dose: 0.3 mg Divalproex Sodium (Depakote Dr Tab(*)) 1,000 mg PO BID [facility] Last Admin: 09/09/16 08:58 Dose: 1,000 mg Heparin Sodium (Porcine) (Heparin Vial(*)) 5,000 units SUBCUT Q12HR [facility] Last Admin: 09/09/16 08:58 Dose: 5,000 units Hydromorphone HCl (Dilaudid Iv*) 1 mg IV SLOW PU Q2H PRN PRN Reason: PAIN Last Admin: 09/08/16 23:56 Dose: 1 mg Lidocaine (Xylocaine 2% Viscous*) 20 ml SWISH SPIT TID PRN PRN Reason: pharyngitis Last Admin: 09/04/16 20:06 Dose: 20 ml Minoxidil (Loniten Tab*) 5 mg PO BID [facility] Last Admin: 09/09/16 08:58 Dose: 5 mg Omeprazole (Prilosec Cap*) 20 mg PO BID [facility] Last Admin: 09/09/16 08:58 Dose: 20 mg Ondansetron HCl (Zofran Inj*) 4 mg IV Q4H PRN PRN Reason: NAUSEA Last Admin: 09/08/16 16:36 Dose: 4 mg Oxycodone HCl (Roxycodone Tab*) 5 mg PO Q6H PRN PRN Reason: PAIN Pregabalin (Lyrica Cap(*)) 25 mg PO 1800 [facility] Last Admin: 09/08/16 18:50 Dose: 25 mg Propranolol HCl (Inderal Tab*) 80 mg PO TID [facility] Last Admin: 09/09/16 08:58 Dose: 80 mg Ropinirole HCl (Requip Tab*) 0.5 mg PO TID [facility] Last Admin: 09/09/16 08:58 Dose: 0.5 mg Sevelamer Carbonate (Renvela Tab*) 3,200 mg PO TID WITH MEALS [facility] Last Admin: 09/09/16 08:55 Dose: 3,200 mg Tramadol HCl (Ultram*) 50 mg PO Q6H PRN PRN Reason: PAIN Last Admin: 09/08/16 20:34 Dose: 50 mg Vital Signs: Temp Pulse Resp BP Pulse Ox 98.6 F 80 16 122/53 94 09/09/16 07:24 09/09/16 07:24 09/09/16 07:24 09/09/16 07:24 09/09/16 07:24 Oxygen Devices in Use Now: None Appearance: Chronically ill but well appearing in NAD. Respiratory: Symmetrical Chest Expansion and Respiratory Effort, Clear to Auscultation Cardiovascular: NL Sounds; No Murmurs; No JVD, RRR Abdominal: NL Sounds; No Tenderness; No Distention Extremities: No Edema Result Diagrams: 09/07/16 06:51 09/08/16 06:03 Additional Lab and Data: . Assess/Plan/Problems-Billing Assessment: This is a 31 yo gentleman with Alport syndrome as associated ESRD who presented with hypertensive urgency and sustained flash pulmonary edema and cardiac arrest now transferred from ICU. - Patient Problems (1) Cardiac arrest Comment: Secondary to flash pulmonary edema s/p extubation without residual neurologic deficits Strength is improving No longer requiring supp O2 (2) Hypertensive urgency Comment: resolved, but with residual TEIXEIRA (3) Headache Comment: He has a h/o freq HAs and migraine syndrome TEIXEIRA became worse with dialysis yesterday with assoc nausea and photophobia Somewhat improved this am Added amitriptyline for additional migraine prophylaxis to his regimen of propanolol and valproic acid (4) Anemia in end-stage renal disease Comment: Acute on chronic Now stable following 1U PRBCs (5) Alport syndrome Comment: Complications of ERSD, hearing loss (6) ESRD (end stage renal disease) Comment: Followed by Dr Arana Recently initiated HD after several years with [facility] HD scheduled for tomorrow (Mon) (7) Neuropathic pain Comment: w/u initiated with Dr Mike Unable to tolerate gabapentin Will start Lyrica, discussed appropriate dosing with pharmacy (8) Full code status Status and Disposition: Inpatient. Anticipate possible discharge later today tomorrow
[2016-09-09] MEDS: cloNIDine 0.3 MG PATCH* 0.3 MG/24 HR 7 DAY PATCH TRANSDERM SCH (10:28)
[2016-09-09 11:48] VITALS: BP 125/59
--- NOTE | 2016-09-09 16:45 | DS ---
CC: Primary Care Provider; Dr. Arana; Dr. Mike * DISCHARGE SUMMARY: ADDENDUM: DATE OF ADMISSION: 09/02/16 DATE OF DISCHARGE: 09/09/16 Please refer to complete discharge summary from 09/08/16 with the following addendum: The patient developed worsening headache with accompanying nausea during hemodialysis and for this reason discharge was canceled. The patient's headache was managed with antiemetics and narcotic analgesics with good effect. His blood pressure remains stable and no additional symptoms or changes in his status developed overnight. Amitriptyline was added for additional migraine prophylaxis, which he seems to tolerate well. Phone message was left with the office of Dr. Mike to try to expedite the followup appointment regarding additional management for his migraine headaches and neuropathic leg pain. Please see the following discharge medication list below to which amitriptyline has been added. DISCHARGE MEDICATIONS: 1. Amitriptyline 25 mg p.o. at bedtime. 2. Amlodipine 10 mg p.o. daily. 3. Depakote 1000 mg p.o. twice daily. 4. Minoxidil 5 mg p.o. twice daily. 5. Omeprazole 20 mg p.o. twice daily. 6. Zofran 8 mg p.o. q.6 hours as needed for nausea. 7. Lyrica 25 mg p.o. daily. 8. Propranolol 80 mg p.o. 3 times daily. 9. Requip 0.5 mg p.o. twice daily. 10. Renvela 3200 mg p.o. 3 times daily. 11. Verapamil 240 mg p.o. daily. 12. Clonidine patch 0.3 mg transdermal daily. 13. Oxycodone 5 mg p.o. q.6 hours as needed for severe headache. 14. Tramadol 50 to 100 mg p.o. q.6 hours as needed for pain. ROSARIO MADISON [id number]/[facility] #: [id number] MTDD
== END 2016-09-09 13:20 | disposition home or self-care (01) | DRG 208 ==
LOC: ED 06:05 → MED 10:15 → ICU 12:42 → OBSVTOIN 14:21 → MED 09-06 11:21
PROVIDERS: ADMIT Hospitalist; ATTEND Internal Medicine
PROC: 5A12012 Performance of Cardiac Output, Single, Manual (ICD-10-PCS; principal; 2016-09-02)
PROC: 5A1945Z Respiratory Ventilation, 24-96 Consecutive Hours (ICD-10-PCS; 2016-09-02)
PROC: 0BH17EZ Insertion of Endotracheal Airway into Trachea, Via Natural or Artificial Opening (ICD-10-PCS; 2016-09-02)
PROC: 5A1D60Z (ICD-10-PCS; 2016-09-02)
PROC: 06HM33Z Insertion of Infusion Device into Right Femoral Vein, Percutaneous Approach (ICD-10-PCS; 2016-09-02)
PROC: B54BZZA Ultrasonography of Right Lower Extremity Veins, Guidance (ICD-10-PCS; 2016-09-02)
PROC: 0BP1XDZ Removal of Intraluminal Device from Trachea, External Approach (ICD-10-PCS; 2016-09-04)
PROC: 0T9B70Z Drainage of Bladder with Drainage Device, Via Natural or Artificial Opening (ICD-10-PCS; 2016-09-05)
PROC: 30233N1 Transfusion of Nonautologous Red Blood Cells into Peripheral Vein, Percutaneous Approach (ICD-10-PCS; 2016-09-05)
DX: J81.0 Acute pulmonary edema (principal); I46.8 Cardiac arrest due to other underlying condition; N18.6 End stage renal disease; I12.0 Hypertensive chronic kidney disease with stage 5 chronic kidney disease or end stage renal disease; I16.1 Hypertensive emergency; Q87.81 Alport syndrome; G43.909 Migraine, unspecified, not intractable, without status migrainosus; D63.1 Anemia in chronic kidney disease; E87.5 Hyperkalemia; E83.52 Hypercalcemia; H91.93 Unspecified hearing loss, bilateral; F41.9 Anxiety disorder, unspecified; F32.9 Major depressive disorder, single episode, unspecified; R40.2412 Glasgow coma scale score 13-15, at arrival to emergency department; R41.0 Disorientation, unspecified; R45.1 Restlessness and agitation; G62.9 Polyneuropathy, unspecified; R50.9 Fever, unspecified; Z99.2 Dependence on renal dialysis; Z88.5 Allergy status to narcotic agent; Z84.81 Family history of carrier of genetic disease; Z86.711 Personal history of pulmonary embolism; Z97.4 Presence of external hearing-aid; Z87.891 Personal history of nicotine dependence; Z98.85 Transplanted organ removal status
CPT/HCPCS: 36415; 70450; 71010; 80048; 80053; 80164; 83605; 84100; 84484; 85014; 85018; 85025; 85027; 85610; 85730; 86706; 86850; 86900; 86901; 86922; 87040; 87340; 87641; 90935; 92950; 93005; 94002; 94003; 94760; 99283; A9270-GY; G0257; G0378; J0171; J0885; J1100; J1170; J1200; J1644; J2060; J2310; J2405; J2543; J2704; J2765; J3010; P9040

== ENCOUNTER 2016-09-12 11:12 | Inpatient (IN) | payer BC, MEDICARE, MEDICAID ==
[2016-09-12] MEDS ORDERED: Morphine INJ* 4 MG/ML 1 ML SYRINGE IV ONE (12:14)
[2016-09-12] MEDS ORDERED: Aspirin Low Dose CHEW TAB* 81 MG PO ONE (12:14)
--- NOTE | 2016-09-12 13:35 | RAD ---
INDICATION: Chest pain and shortness of breath. COMPARISON: Comparison is made with prior chest x-ray studies from September 02, 2016 and September 03, 2016. TECHNIQUE: AP and lateral views of the chest were obtained. FINDINGS: The heart appears mildly enlarged and unchanged from the prior study. There is diffuse prominence of the interstitial markings and small bilateral pleural effusions with thickening of the fissures. IMPRESSION: FINDINGS SUGGESTIVE OF PULMONARY EDEMA, NEW.
[2016-09-12 13:38] LABS: BUN/Creatinine Ratio 4.7 (8-20); Calcium 10.1 mg/dL (8.6-10.3); EGFR African American 10.3 (>60); Globulin 2.9 g/dL (2-4); Magnesium 2.2 mg/dL (1.9-2.7); Total Bilirubin 0.7 mg/dL (0.2-1.0); Total Protein 5.9 g/dL (6.4-8.9)
[2016-09-12 13:41] LABS: Hematocrit 23 % (42-52); Hemoglobin 7.7 g/dl (14.0-18.0); Mean Corpuscular HGB Conc 33 g/dl (31-36); Mean Corpuscular Hemoglobin 31 pg (27-31); Mean Corpuscular Volume 93 fL (80-94); Mean Platelet Volume 7 um3 (7.4-10.4); Red Blood Count 2.49 10^6/ul (4.0-5.4); Red Cell Distribution Width 14 % (10.5-15); White Blood Count 6.8 10^3/ul (3.5-10.8)
[2016-09-12 13:46] LABS: Troponin I 0.05 ng/mL (<0.04)
[2016-09-12 13:47] LABS: Potassium 5.2 mmol/L (3.5-5.0)
[2016-09-12] MEDS ORDERED: Acetaminophen TAB* 325 MG PO PRN (15:37)
[2016-09-12] MEDS ORDERED: Ondansetron INJ* 2 MG/ML VIAL IV PRN (15:37)
[2016-09-12] MEDS ORDERED: Ondansetron ODT TAB* 4 MG PO PRN (15:51)
[2016-09-12] MEDS ORDERED: traMADol TAB* 50 MG PO PRN (15:53)
--- NOTE | 2016-09-12 15:53 | ED ---
Maeve Alejandro Edward, scribed for Harry Mcconnell MD on 09/12/16 at 1209 . Shortness of Breath - HPI Summary HPI Summary: 31 y/o male presents to ED c/o CP and SOB gotten progressively worse since he was released from the hospital. CP is aggravated by deep breaths. SOB alleviated by oxygen given in ED, not alleviated when he lays down. Associated sx: productive cough (somtimes dark red), back pain, mild TEIXEIRA. Patient states he is having the same feelings in his L shoulder as when he had pneumothorax previously. Denies fever, chills, wheezing, and LE edema. PMHx spontaneous pneumothorax of L lung, dialysis (last done yesterday), HTN. No OR's, asthma, emphysema. Former smoker, used to use EtOH. - History of Current Complaint Chief Complaint: EDShortnessOfBreath Time Seen by Provider: 09/12/16 11:29 Hx Obtained From: Patient Onset/Duration: Gradual Onset - Since being released from the hospital Aggrevating Factors: Deep Breaths Associated Signs & Symptoms: Cough (Productive) - Sometimes dark red, Chest Pain Unrelated to Cough - Allergy/Home Medications Allergies/Adverse Reactions: Allergies Allergy/AdvReac Type Severity Reaction Status Date / Time Gabapentin Allergy Severe twitching/double Verified 09/07/16 12:19 vision Hydrocodone [From Vicodin] AdvReac Intermediate TWITCHING Verified 08/20/16 11: 52 PMH/Surg Hx/FS Hx/Imm Hx Previously Healthy: No Endocrine/Hematology History: Reports: Hx Anticoagulant Therapy, Hx Blood Transfusions - February 2016, Hx Anemia Denies: Hx Blood Disorders, Hx Bone Marrow Disease, Hx Diabetes, Hx Systemic Lupus Erythematosus, Hx Sickle Cell Disease, Hx Thyroid Disease, Hx Unexplained Bleeding, Other Endocrine/Hematological Disorders Cardiovascular History: Reports: Hx Embolism - PE, Hx Hypertension - ON MEDICATION FOR, Other Cardiovascular Problems/Disorders - RT.KIDNEY TRANSPLANT FAILED AND REMOVED/DIALYSIS Denies: Hx Aneurysm, Hx Angina, Hx Angioplasty, Hx Auto Implanted Cardiovert Defib, Hx Cardiac Arrest, Hx Cardiomegaly, Hx Congenital Heart Disease, Hx Congestive Heart Failure, Hx Coronary Artery Disease, Hx Deep Vein Thrombosis, Hx Hypercholesterolemia, Hx Hypotension, Hx Pacemaker/ICD, Hx Peripheral Vascular Disease, Hx Rheumatic Fever, Hx Syncope, Hx Valvular Heart Disease Respiratory History: Reports: Hx Pulmonary Edema - FLUID IN LUNGS IN 2016 A COUPLE OF TIMES PER PATIENT, Other Respiratory Problems/Disorders - "left lung repaired for pneumothorax in 2006 Denies: Hx Asthma, Hx Chronic Bronchitis, Hx Chronic Obstructive Pulmonary Disease (COPD), Hx Cystic Fibrosis, Hx Lung Cancer, Hx Pleural Effusion, Hx Pneumonia, Hx Pulmonary Embolism, Hx Seasonal Allergies, Hx Sleep Apnea GI History: Denies: Hx Cirrhosis, Hx Crohn's Disease, Hx Diverticulosis, Hx Gall Bladder Disease, Hx Gastroesophageal Reflux Disease, Hx Gastrointestinal Bleed, Hx Hiatal Hernia, Hx Irritable Bowel, Hx Jaundice, Hx Obstructive Bowel, Hx Ileostomy, Hx Pyloric Stenosis, Hx Ulcer, Other GI Disorders History: Reports: Hx Acute Renal Failure, Hx Chronic Renal Failure, Hx Dialysis, Hx Renal Disease - TRANSPLANT - RT, dialysis every Mon., Wed., Thu., Other Problems/Disorders - DIALYSIS- Denies: Hx Benign Prostatic Hyperplasia, Hx Kidney Infection, Hx Kidney Stones Musculoskeletal History: Reports: Other Musculoskeletal History - UNSURE CURRENTLY AWAITING TEST RESULTS FOR BACK Denies: Hx Arthritis, Hx Back Problems, Hx Bursitis, Hx Congenital Bone Abnormalities, Hx Fibromyalgia, Hx Gout, Hx Orthopedic Injury, Hx Osteoporosis, Hx Scoliosis, Hx Tendonitis Sensory History: Reports: Hx Contacts or Glasses, Hx Deafness, Hx Hearing Problem - moderate hearing loss bilat ears Denies: Hx Cataracts, Hx Eye Injury, Hx Eye Prosthesis, Hx Glaucoma, Hx Legally Blind, Hx Macular Degeneration, Hx Vision Problem, Hx Hearing Aid, Other Sensory Impairments Opthamlomology History: Reports: Hx Contacts or Glasses Denies: Hx Cataracts, Hx Eye Injury, Hx Eye Prosthesis, Hx Glaucoma, Hx Legally Blind, Hx Macular Degeneration, Hx Vision Problem, Other Sensory Impairments Neurological History: Reports: Hx Headaches, Hx Migraine - 1-2 PER MONTH Denies: Hx Dementia, Hx Developmental Delay, Hx Nerve Disease, Hx Seizures, Hx Spinal Cord Injury, Hx Transient Ischemic Attacks (TIA), Other Neuro Impairments/Disorders Psychiatric History: Reports: Hx Anxiety - NEW-STATES MD IS AWARE, Hx Depression - NEW-STATES MD IS AWARE Denies: Hx Attention Deficit Hyperactivity Disorder, Hx Eating Disorder, Hx Panic Disorder, Hx Post Traumatic Stress Disorder, Hx Inpatient Treatment, Hx Community Mental Health Tx, Hx Schizophrenia, Hx Bipolar Disorder, Hx Suicide Attempt, Hx of Violent Episodes Against Others, Hx Substance Abuse, Other Psychiatric Issues/Disorders - Cancer History Hx Chemotherapy: No Hx Radiation Therapy: No Hx Palliative Cancer Treatment: No - Surgical History Surgery Procedure, Year, and Place: 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[place], [place]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; LEFT LUNG SX FOR REPAIR; LEFT ARM FISTULA FOR DIALISYS 2016, RIGHT CHEST WALL CATH FOR DIALYSIS; RIGHT NEPHRECTOMY - kidney rejected, 2016 Hx Anesthesia Reactions: No - Immunization History Date of Tetanus Vaccine: Unk Date of Influenza Vaccine: Fall 2014 Infectious Disease History: No Infectious Disease History: Denies: Hx Hepatitis, Hx of Known/Suspected MRSA, Hx Shingles, Hx Tuberculosis, History Other Infectious Disease, Traveled Outside the [place] in Last 30 Days - Family History Known Family History: Positive: Other - Mother carrier of alport disease gene Negative: Blood Disorder - Social History Alcohol Use: None Alcohol Amount: Once per month before getting sick in February Hx Substance Use: No Substance Use Type: Reports: None Hx Tobacco Use: Yes Smoking Status (MU): Former Smoker Type: Cigarettes Amount Used/How Often: 1 PPD X 4 YEARS Have You Smoked in the Last Year: No Review of Systems Constitutional: Negative Negative: Fever, Chills Eyes: Negative ENT: Negative Positive: Chest Pain Positive: Shortness Of Breath, Cough - Productive - dark red sometimes Gastrointestinal: Negative Negative: Abdominal Pain Genitourinary: Negative Positive: Myalgia - Back pain (chronic). Negative: Edema Skin: Negative Positive: Headache Psychological: Normal All Other Systems Reviewed And Are Negative: Yes Physical Exam - Summary Physical Exam Summary: The patient is well-nourished in no acute distress and in no acute pain. The skin is warm and dry. The patient is pale. HEENT: The head is normocephalic and atraumatic. The pupils are equal and reactive. The conjunctivae are clear and without drainage. Nares are patent and without drainage. Mouth reveals moist mucous membranes and the throat is without erythema and exudate. The external ears are intact. The ear canals are patent and without drainage. The tympanic membranes are intact. Neck is supple with full range of motion and non-tender. There are no carotid bruits. There is neck vein distension. Respiratory: Chest is non-tender. Lungs sounds are decreased on both sides. Cardiovascular: Heart is tachycardic. There is no murmur or rub auscultated. There is no peripheral edema and pulses are symmetrical and equal. Abdomen: The abdomen is soft and non-tender. There are normal bowel sounds heard in all four quadrants and there is no organomegaly palpated. There is abdominal fullness in the RUQ. Musculoskeletal: There is no back pain noted. Extremities are non-tender with full range of motion. There is good capillary refill. There is no peripheral edema or calf tenderness elicited. There is pain in the sternum. There is no subcutaneous emphysema. Neurological: Patient is alert and oriented to person, place and time. The patient has symmetrical motor strength in all four extremities. Cranial nerves are grossly intact. Deep tendon reflexes are symmetrical and equal in all four extremities. Psychiatric: The patient has an appropriate affect and does not exhibit any anxiety or depression. Triage Information Reviewed: Yes Vital Signs On Initial Exam: Initial Vitals Temp Pulse Resp BP Pulse Ox 98.5 F 105 20 171/98 84 09/12/16 11:18 09/12/16 11:18 09/12/16 11:18 09/12/16 11:18 09/12/16 11:18 Vital Signs Reviewed: Yes Diagnostics - Vital Signs Vital Signs Temp Pulse Resp BP Pulse Ox 09/12/16 11:35 137 23 172/112 83 09/12/16 11:34 21 09/12/16 11:33 200/170 09/12/16 11:23 98.2 F 103 20 171/98 85 09/12/16 11:18 98.5 F 105 20 171/98 84 - Laboratory Lab Results: Lab Results 09/12/16 09/12/16 09/12/16 Range/Units 13:00 13:00 13:25 WBC 6.8 (3.5-10.8) 10^3/ul RBC 2.49 L (4.0-5.4) 10^6/ul Hgb 7.7 L (14.0-18.0) g/dl Hct 23 L (42-52) % MCV 93 (80-94) fL MCH 31 (27-31) pg MCHC 33 (31-36) g/dl RDW 14 (10.5-15) % Plt Count 327 (150-450) 10^3/ul MPV 7 L (7.4-10.4) um3 Neut % (Auto) 71.4 (38-83) % Lymph % (Auto) 13.5 L (25-47) % Stewart % (Auto) 9.4 H (1-9) % Eos % (Auto) 3.6 (0-6) % Baso % (Auto) 2.1 H (0-2) % Absolute Neuts (auto) 4.8 (1.5-7.7) 10^3/ul Absolute Lymphs (auto) 0.9 L (1.0-4.8) 10^3/ul Absolute Monos (auto) 0.6 (0-0.8) 10^3/ul Absolute Eos (auto) 0.2 (0-0.6) 10^3/ul Absolute Basos (auto) 0.1 (0-0.2) 10^3/ul Absolute Nucleated RBC 0 10^3/ul Nucleated RBC % 0 INR (Anticoag Therapy) 0.95 (0.89-1.11) Sodium 136 (133-145) mmol/L Potassium 5.2 H (3.5-5.0) mmol/L Chloride 96 L (101-111) mmol/L Carbon Dioxide 32 (22-32) mmol/L Anion Gap 8 (2-11) mmol/L BUN 38 H (6-24) mg/dL Creatinine 8.04 H (0.67-1.17) mg/dL Est GFR ( Amer) 10.3 (>60) Est GFR (Non-Af Amer) 8.0 (>60) BUN/Creatinine Ratio 4.7 L (8-20) Glucose 83 (70-100) mg/dL Lactic Acid (0.5-2.0) mmol/L Calcium 10.1 (8.6-10.3) mg/dL Magnesium 2.2 (1.9-2.7) mg/dL Total Bilirubin 0.70 (0.2-1.0) mg/dL AST 23 (13-39) U/L ALT 12 (7-52) U/L Alkaline Phosphatase 33 L (34-104) U/L Total Creatine Kinase 45 (10-223) U/L Troponin I 0.05 H* (<0.04) ng/mL B-Natriuretic Peptide ( - 100) pg/mL Total Protein 5.9 L (6.4-8.9) g/dL Albumin 3.0 L (3.2-5.2) g/dL Globulin 2.9 (2-4) g/dL Albumin/Globulin Ratio 1.0 (1-3) 09/12/16 09/12/16 Range/Units 13:25 13:25 WBC (3.5-10.8) 10^3/ul RBC (4.0-5.4) 10^6/ul Hgb (14.0-18.0) g/dl Hct (42-52) % MCV (80-94) fL MCH (27-31) pg MCHC (31-36) g/dl RDW (10.5-15) % Plt Count (150-450) 10^3/ul MPV (7.4-10.4) um3 Neut % (Auto) (38-83) % Lymph % (Auto) (25-47) % Stewart % (Auto) (1-9) % Eos % (Auto) (0-6) % Baso % (Auto) (0-2) % Absolute Neuts (auto) (1.5-7.7) 10^3/ul Absolute Lymphs (auto) (1.0-4.8) 10^3/ul Absolute Monos (auto) (0-0.8) 10^3/ul Absolute Eos (auto) (0-0.6) 10^3/ul Absolute Basos (auto) (0-0.2) 10^3/ul Absolute Nucleated RBC 10^3/ul Nucleated RBC % INR (Anticoag Therapy) (0.89-1.11) Sodium (133-145) mmol/L Potassium (3.5-5.0) mmol/L Chloride (101-111) mmol/L Carbon Dioxide (22-32) mmol/L Anion Gap (2-11) mmol/L BUN (6-24) mg/dL Creatinine (0.67-1.17) mg/dL Est GFR ( Amer) (>60) Est GFR (Non-Af Amer) (>60) BUN/Creatinine Ratio (8-20) Glucose (70-100) mg/dL Lactic Acid 0.6 (0.5-2.0) mmol/L Calcium (8.6-10.3) mg/dL Magnesium (1.9-2.7) mg/dL Total Bilirubin (0.2-1.0) mg/dL AST (13-39) U/L ALT (7-52) U/L Alkaline Phosphatase (34-104) U/L Total Creatine Kinase (10-223) U/L Troponin I (<0.04) ng/mL B-Natriuretic Peptide 8873 H ( - 100) pg/mL Total Protein (6.4-8.9) g/dL Albumin (3.2-5.2) g/dL Globulin (2-4) g/dL Albumin/Globulin Ratio (1-3) Result Diagrams: 09/12/16 13:25 09/12/16 13:00 Lab Statement: Any lab studies that have been ordered have been reviewed, and results considered in the medical decision making process. - Radiology CXR Xray Interpretation: Positive (See Comments) - FINDINGS SUGGESTIVE OF PULMONARY EDEMA, RIYA Radiology Interpretation Completed By: Radiologist - EKG 1 EKG Rhythm: Sinus Rhythm EKG Interpretation: 11:34 - Normal axis. No ST elevation. No STEMI Course/Dx - Course Assessment/Plan: 31 y/o male presents to ED c/o CP and SOB gotten progressively worse since he was released from the hospital. PMHx spontaneous pneumothorax of L lung, dialysis (last done yesterday), HTN. No OR's, asthma, emphysema.EKG @ 11 :34 - Normal axis. No ST elevation. No STEMI. Spoke to Dr. Jose De Jesus Arana @ 14: 40 (nephrology) who wanted a dry weight (if weight < 66.5 kg, then Dr. Arana believes it is probably not renal). Patient's bedside weight was 65.85 kg @ 14: 37. Spoke again to Dr. Arana who agreed to admit patient and will put the patient on dialysis. - Diagnoses Differential Diagnosis/HQI/PQRI: Positive: CHF, OR, Pneumonia, Pneumothorax, Pulmonary Edema, Other - renal failure Provider Diagnoses: Pulmonary edema, Renal failure, Chest pain, Hyperkalemia Discharge - Discharge Plan Condition: Stable Disposition: ADMITTED TO [facility] documentation as recorded by the Maeve florence Edward accurately reflects the service I personally performed and the decisions made by , Harry Mcconnell MD.
[2016-09-12] MEDS ORDERED: cloNIDine 0.3 MG PATCH* 0.3 MG/24 HR 7 DAY PATCH TRANSDERM SCH (16:00)
[2016-09-12] MEDS: HYDROmorphone* 1 MG/ML 1 ML SYR IV SLOW PU PRN ×2 (16:43→22:07)
[2016-09-12] MEDS: Sevelamer TAB* 800 MG PO SCH (17:38)
[2016-09-12] MEDS: Pregabalin CAP(*) 25 MG PO SCH (17:38)
[2016-09-12] MEDS: Omeprazole CAP* 20 MG PO SCH (17:38)
[2016-09-12] MEDS ORDERED: Heparin DIALYSIS ONLY(*) 1,000 UNITS/ML VIAL DIALYSIS ONE (19:00)
[2016-09-12] MEDS ORDERED: Epoetin Alfa* 10,000 UNITS/ML VIAL IV ONE (19:00)
[2016-09-12] MEDS: oxyCODONE TAB* 5 MG TAB PO PRN (20:15)
[2016-09-12] MEDS: Amitriptyline TAB* 25 MG PO SCH (21:38)
[2016-09-12] MEDS: Divalproex DR TAB(*) 500 MG PO SCH (21:38)
[2016-09-12] MEDS: Calcium Polycarbophil TAB* 625 MG PO SCH (21:38)
[2016-09-12] MEDS: Ropinirole TAB* 0.5 MG TAB PO SCH (21:38)
[2016-09-12] MEDS: Propranolol TAB* 80 MG PO SCH (21:38)
[2016-09-12] MEDS: MinoXIDil TAB* 2.5 MG TAB PO SCH (21:38)
--- NOTE | 2016-09-13 00:08 | HP ---
CC: Dr. Arana; Dr. Mike; Dr. Frey * HISTORY AND PHYSICAL: DATE OF ADMISSION: 09/12/16 PROVIDER: Lito Ley NP ATTENDING PHYSICIAN: Parisa Figueredo MD * (as dictated by Dr. Lito Ley NP). PRIMARY CARE PROVIDER: Christa Frey MD PRIMARY PYTHON ARCHITECT: Jose De Jesus Arana MD CHIEF COMPLAINT: Chest pain. HISTORY OF PRESENT ILLNESS: Mr. Sotelo is a 31-year-old male patient, who presents to the ER after a recent discharge on 09/09/16 following an admission for cardiac arrest secondary to flash pulmonary edema, hypertensive emergency, and [id number] anemia in the setting of end-stage renal disease. The patient reports going home with persistent chest pain that was attributed to chest compression and states that the chest pain never really improved and gradually worsened along with the dyspnea. The chest pain is aggravated by deep breath. He did have a dialysis on , but did not notice any noticeable difference with his breathing or chest pain and actually felt short of breath yesterday evening. Here in the ER, the patient reports that he feels little better with oxygen, but does endorse now he has slight headache, which he attributes to not eating. He reports a cough that is mostly nonproductive and some back pain. He denies any recent fever, chills, sweats. He denies any other cold or flu-like symptoms other than cough. He denies any wheezing, orthopnea or lower extremity edema. He does also report some occasional nausea. Here in the ER, the patient had a chest x-ray, which shows concern for pulmonary edema. His EKG shows rhythm with no ST elevation. The ER physician did speak with Dr. Arana, and there is a plan to have the patient dialyzed this afternoon. The patient's lab shows hemoglobin of 7.7, hematocrit of 23, which is slightly below where the patient was discharged a few days ago. His potassium is 5.2. His creatinine is 8.04. First troponin was 0.05 and his BNP is 8,873. PAST MEDICAL HISTORY: Includes: 1. Alport syndrome, status post failed renal transplant. 2. End-stage renal disease, currently on hemodialysis. 3. Peritoneal dialysis catheter with removal. 4. History of migraines. 5. Hypertension. 6. Anemia of chronic disease. PAST SURGICAL HISTORY: 1. Kidney transplant, status post removal. 2. AV fistula placement. 3. Peritoneal dialysis catheter placement and removal. HOME MEDICATIONS: 1. Tramadol 50 to 100 mg q.6 hours p.r.n. 2. Oxycodone 5 mg q.6 hours p.r.n. 3. Clonidine 0.3 mg patch q.7 days. 4. Verapamil SR 240 mg q.a.m. 5. Renvela 3200 mg b.i.d. with meals. 6. Ropinirole 0.5 mg b.i.d. 7. Propranolol 80 mg t.i.d. 8. Pregabalin 25 mg q.p.m. 9. Ondansetron ODT 8 mg q.6 hours p.r.n. 10. Omeprazole 20 mg b.i.d. 11. Minoxidil 5 mg b.i.d. 12. Fiber capsule 1 capsule b.i.d. 13. Depakote DR 1000 mg b.i.d. 14. Nephro-Clement 1 tab daily. 15. Amlodipine 10 mg q.a.m. 16. Amitriptyline 25 mg at bedtime. ALLERGIES: Include GABAPENTIN and HYDROCODONE. FAMILY HISTORY: Mother also has a history of Alport syndrome. SOCIAL HISTORY: The patient denies any tobacco, alcohol or illicit drug use. The patient's mother, Oniel Sotelo, is his surrogate decision maker and healthcare proxy. REVIEW OF SYSTEMS: As per HPI. PHYSICAL EXAMINATION GENERAL: Mr. Sotelo is a young male patient, who is lying in bed with sunglasses in place. He responds appropriately. VITAL SIGNS: Temperature 98.2, heart rate 103, respiratory rate 17, blood pressure 133/71, and O2 saturation is 93% on room air. HEENT: Head is atraumatic, normocephalic. Face is symmetrical. Sclerae anicteric. Pupils are equal and reactive. Oral mucosa appears moist. There is no oropharyngeal erythema or exudate. NECK: Supple. The patient has full range of motion to the neck. He does have neck pain distention. RESPIRATORY: Lung sounds are diminished with some mild bibasilar crackles. CARDIAC: S1, S2 heart sounds. Regular rate and rhythm. The patient is tachycardic. No murmurs, rubs or gallops. He does not have any peripheral edema. Distal pulses are 2+ and equal. ABDOMEN: Soft, nontender, nondistended. Bowel sounds are positive times all 4 quadrants. MUSCULOSKELETAL: No clubbing or cyanosis noted. The patient is able to move all extremities. No back pain noted. The patient does have pain with palpation to the sternum. SKIN: Limited assessment that appears grossly intact. NEUROLOGIC: The patient is alert and oriented x3. Cranial nerves II through XII are grossly intact. Moves all extremities. Sensation is intact to light touch to the lower extremities. PSYCH: He is alert and oriented x3, and affect is appropriate. LABORATORY DATA AND DIAGNOSTIC STUDIES: CBC: WBC 6.8, hemoglobin 7.7, hematocrit 23, platelet count 327. CMP: Sodium 136, potassium 5.2, chloride 96 , BUN 38, creatinine 8.04, glucose 83, lactic acid 0.6, calcium 10.1, magnesium 2.2. Total bilirubin 0.7, AST 23, ALT 12, alk phos 73. Total CK 45, troponin 0.05, BNP , albumin 3.0. Chest x-ray shows finding suggestive of pulmonary edema, new. EKG shows sinus rhythm, no ST elevation. ASSESSMENT AND PLAN: Mr. Sotelo is a 31-year-old patient, who presents today with concern for chest pain and shortness of breath that has progressively worsened since the patient's discharge on 09/09/16. He will be admitted to the ICU. Plan as follows: 1. Chest pain with shortness of breath. Admit to ICU. Suspect pulmonary edema due to the presence of fluid overload. The patient will receive dialysis this evening. Chest x-rays shows pulmonary edema, which was present on previous admissions. He does endorse a persistent cough, although it appears nonproductive at this time and he denies fever. There is no current leukocytosis noted; however, I will collect a sputum sample if the patient is able to provide one and also check a CT of the chest given that the patient has persistently had issues with dyspnea over the past several days. We will obtain a CT after dialysis and see if this makes a significant difference in the patient's dyspnea and to monitor for any other infiltrates to be present. The patient also has chest pain secondary to chest compressions performed last admission when the patient was an ABC alert. His initial troponin is 0.05. We will continue trend these troponins and monitor closely. He does have a BNP of 8,000. 2. Hyperkalemia. The patient's potassium is 5.2, which we will continue to monitoring. He is receiving dialysis. So, we will recheck a BNP tomorrow. 3. Anemia. The patient received 1 unit of blood prior to discharge on 09/09/16 , and he has dropped minimally, which may be somewhat dilutional given that the patient is fluid overloaded. Recheck CBC following dialysis. 4. Hypertension. The patient's blood pressure is currently well controlled. Continue home medications. 5. History of migraines. The patient does have a slight headache at this time. He is ordered a p.r.n. hydromorphone as well as his home medications. 6. History of Alport syndrome, currently on hemodialysis. The patient will emergently receive dialysis today. He is typically on a Thursday, , and Thursday's schedule. Continue home Nephro-Clement and Renvela. 7. FEN. The patient is ordered a renal diet. 8. DVT prophylaxis. The patient is ordered SCDs. 9. Code status. He is a full code. TIME SPENT: Time spent on this admission was approximately 65 minutes, more than half the time was spent [id number] with the patient obtaining history and physical, performing the physical examination, and reviewing the plan of care. Plan of care was also reviewed with my attending, Dr. Parisa Figueredo, who is in agreement. LITO LEY, PORSCHE [id number]/[facility] #: [id number] LUIS M
[2016-09-13] MEDS: HYDROmorphone* 1 MG/ML 1 ML SYR IV SLOW PU PRN ×4 (03:07→21:11)
[2016-09-13] MEDS: oxyCODONE TAB* 5 MG TAB PO PRN ×5 (04:30→23:50)
[2016-09-13 06:49] LABS: Calcium 9.7 mg/dL (8.6-10.3); EGFR African American 15.2 (>60); EGFR Non-African American 11.8 (>60); Potassium 4.3 mmol/L (3.5-5.0)
[2016-09-13 06:50] LABS: Hematocrit 21 % (42-52); Hemoglobin 7.1 g/dl (14.0-18.0); Mean Corpuscular HGB Conc 34 g/dl (31-36); Mean Corpuscular Hemoglobin 31 pg (27-31); Mean Corpuscular Volume 93 fL (80-94); Mean Platelet Volume 7 um3 (7.4-10.4); Red Blood Count 2.29 10^6/ul (4.0-5.4); Red Cell Distribution Width 14 % (10.5-15); White Blood Count 5.4 10^3/ul (3.5-10.8)
--- NOTE | 2016-09-13 07:48 | RAD ---
HISTORY: Cough, shortness of breath, chest pain COMPARISONS: February 19, 2016 TECHNIQUE: Multiple contiguous axial CT scans of the chest were obtained without intravenous contrast. Coronal and sagittal multiplanar reformations are also submitted for review. FINDINGS: The study is limited by the lack of intravenous contrast. This limits evaluation of the solid organs and vasculature. NECK AND THYROID: The lower neck and thyroid are unremarkable. CHEST WALL: There is no lower cervical, axillary, or supraclavicular lymphadenopathy by size criteria. HEART AND PERICARDIUM: The heart is unremarkable. AORTA AND PULMONARY VASCULATURE: The aorta and pulmonary vasculature are normal. MEDIASTINUM: There is no mediastinal lymphadenopathy by size criteria. VICKY: There is no hilar lymphadenopathy by size criteria. AIRWAY AND ESOPHAGUS: The airway is unremarkable, without endobronchial filling defect. The esophagus is grossly normal. LUNG PARENCHYMA: There is mild patchy ground glass opacification throughout both lung argueta, with more focal mixed atelectasis and consolidation of the lung bases bilaterally. PLEURA: There are small bilateral pleural effusions UPPER ABDOMEN: There is moderate amount of ascites BONES AND SOFT TISSUES: No bone or soft tissue abnormalities are noted. OTHER: None. IMPRESSION: 1. SUBSEGMENTAL ATELECTASIS AND CONSOLIDATION OF THE LOWER LOBES BILATERALLY. 2. SMALL BILATERAL PLEURAL EFFUSIONS. 3. PATCHY GROUND LESS OPACIFICATION THROUGHOUT BOTH LUNGS MAY REFLECT DIFFUSE AIRSPACE INFECTIOUS OR INFLAMMATORY PROCESS. 4. ASCITES
[2016-09-13] MEDS: Verapamil SR TAB* 240 MG PO SCH (08:44)
[2016-09-13] MEDS: Folic Acid TAB* 1 MG PO SCH (08:44)
[2016-09-13] MEDS: Sevelamer TAB* 800 MG PO SCH ×4 (08:44→17:28)
[2016-09-13] MEDS: Propranolol TAB* 80 MG PO SCH ×3 (08:44→21:18)
[2016-09-13] MEDS: Omeprazole CAP* 20 MG PO SCH ×2 (08:44→16:50)
[2016-09-13] MEDS: Calcium Polycarbophil TAB* 625 MG PO SCH ×2 (08:46→21:17)
[2016-09-13] MEDS: Vitamin B Complex TAB PO SCH (08:46)
[2016-09-13] MEDS: amLODIPine TAB* 5 MG PO SCH (08:46)
[2016-09-13] MEDS: MinoXIDil TAB* 2.5 MG TAB PO SCH ×2 (08:46→21:18)
[2016-09-13] MEDS: Divalproex DR TAB(*) 500 MG PO SCH ×2 (08:46→21:17)
[2016-09-13] MEDS: Ropinirole TAB* 0.5 MG TAB PO SCH ×2 (08:46→21:17)
--- NOTE | 2016-09-13 14:09 | PN ---
Subjective Date of Service: 09/13/16 Interval History: Chest pain, central, worse with inspiration pain is inhibiting deep breathing worse with cough denies SOB mild TEIXEIRA Objective Active Medications: Acetaminophen (Tylenol Tab*) 650 mg PO Q4H PRN PRN Reason: FEVER/PAIN Amitriptyline HCl (Elavil Tab*) 25 mg PO BEDTIME [facility] Last Admin: 09/12/16 21:38 Dose: 25 mg Amlodipine Besylate (Norvasc Tab*) 10 mg PO QAM [facility] Last Admin: 09/13/16 08:46 Dose: 10 mg Calcium Polycarbophil (Fibercon Tab*) 625 mg PO BID [facility] Last Admin: 09/13/16 08:46 Dose: 625 mg Clonidine HCl (Baqaemso-Wak-6 0.3 Mg Patch*) 0.3 mg TRANSDERM Q7D [facility] Last Admin: 09/12/16 17:37 Dose: 0.3 mg Divalproex Sodium (Depakote Dr Tab(*)) 1,000 mg PO BID [facility] Last Admin: 09/13/16 08:46 Dose: 1,000 mg Folic Acid (Folvite Tab*) 0.5 mg PO DAILY [facility] Last Admin: 09/13/16 08:44 Dose: 0.5 mg Hydromorphone HCl (Dilaudid Iv*) 0.5 mg IV SLOW PU Q4H PRN PRN Reason: PAIN Minoxidil (Loniten Tab*) 5 mg PO BID [facility] Last Admin: 09/13/16 08:46 Dose: 5 mg Omeprazole (Prilosec Cap*) 20 mg PO BID@0730,1630 [facility] Last Admin: 09/13/16 08:44 Dose: 20 mg Ondansetron HCl (Zofran Inj*) 4 mg IV Q6H PRN PRN Reason: NAUSEA/VOMITING Ondansetron HCl (Zofran Odt Tab*) 8 mg PO Q6H PRN PRN Reason: NAUSEA Oxycodone HCl (Roxycodone Tab*) 5 mg PO Q6H PRN PRN Reason: PAIN Last Admin: 09/13/16 10:31 Dose: 5 mg Pregabalin (Lyrica Cap(*)) 25 mg PO QPM [facility] Last Admin: 09/12/16 17:38 Dose: 25 mg Propranolol HCl (Inderal Tab*) 80 mg PO TID [facility] Last Admin: 09/13/16 08:44 Dose: 80 mg Ropinirole HCl (Requip Tab*) 0.5 mg PO BID [facility] Last Admin: 09/13/16 08:46 Dose: 0.5 mg Sevelamer Carbonate (Renvela Tab*) 3,200 mg PO TID WITH MEALS [facility] Last Admin: 09/13/16 13:15 Dose: Not Given Tramadol HCl (Ultram*) 50 mg PO Q6H PRN PRN Reason: PAIN - MILD TO MODERATE Verapamil HCl (Calan Sr Tab*) 240 mg PO QAM [facility] Last Admin: 09/13/16 08:44 Dose: 240 mg Vitamin B Complex/Vitamin E (Complex B-100*) 1 tab PO DAILY [facility] Last Admin: 09/13/16 08:46 Dose: 1 tab Vital Signs 09/12/16 09/12/16 09/12/16 15:00 15:30 15:37 Temperature 98.7 F 98.7 F Pulse Rate 95 90 Respiratory 17 23 Rate Blood Pressure 133/71 150/76 (mmHg) O2 Sat by Pulse 93 94 Oximetry 09/12/16 09/12/16 09/12/16 16:00 16:33 16:43 Temperature Pulse Rate 93 102 Respiratory 22 23 20 Rate Blood Pressure 137/72 150/76 (mmHg) O2 Sat by Pulse 94 93 Oximetry 09/12/16 09/12/16 09/12/16 16:45 17:00 17:10 Temperature Pulse Rate 91 88 Respiratory 20 11 20 Rate Blood Pressure 144/79 170/78 (mmHg) O2 Sat by Pulse 94 95 Oximetry 09/12/16 09/12/16 09/12/16 17:15 17:24 17:30 Temperature Pulse Rate 90 88 Respiratory 17 20 16 Rate Blood Pressure 144/74 138/88 (mmHg) O2 Sat by Pulse 95 93 Oximetry 09/12/16 09/12/16 09/12/16 17:45 17:53 18:00 Temperature Pulse Rate 97 94 Respiratory 20 14 20 Rate Blood Pressure 151/73 137/76 (mmHg) O2 Sat by Pulse 93 95 Oximetry 09/12/16 09/12/16 09/12/16 18:15 18:18 18:30 Temperature Pulse Rate 95 95 94 Respiratory 17 19 16 Rate Blood Pressure 140/95 133/67 (mmHg) O2 Sat by Pulse 94 95 96 Oximetry 09/12/16 09/12/16 09/12/16 18:45 19:00 19:08 Temperature Pulse Rate 97 109 92 Respiratory 20 17 20 Rate Blood Pressure 119/76 139/63 (mmHg) O2 Sat by Pulse 94 98 95 Oximetry 09/12/16 09/12/16 09/12/16 19:15 19:30 19:43 Temperature 99.3 F Pulse Rate 98 93 Respiratory 20 19 Rate Blood Pressure 126/61 125/76 (mmHg) O2 Sat by Pulse 95 95 Oximetry 09/12/16 09/12/16 09/12/16 19:45 20:00 20:15 Temperature Pulse Rate 105 107 100 Respiratory 21 22 15 Rate Blood Pressure 124/67 137/77 136/62 (mmHg) O2 Sat by Pulse 96 97 95 Oximetry 09/12/16 09/12/16 09/12/16 20:30 20:45 21:00 Temperature Pulse Rate 93 95 100 Respiratory 17 19 18 Rate Blood Pressure 133/66 124/55 141/55 (mmHg) O2 Sat by Pulse 96 96 96 Oximetry 09/12/16 09/12/16 09/12/16 21:15 21:30 21:45 Temperature Pulse Rate 97 106 102 Respiratory 18 20 18 Rate Blood Pressure 120/44 110/48 (mmHg) O2 Sat by Pulse 96 97 97 Oximetry 09/12/16 09/12/16 09/12/16 21:46 22:00 22:05 Temperature Pulse Rate 107 101 Respiratory 20 23 Rate Blood Pressure 120/58 124/75 127/73 (mmHg) O2 Sat by Pulse Oximetry 09/12/16 09/12/16 09/12/16 22:07 23:00 23:06 Temperature Pulse Rate 86 85 Respiratory 20 13 13 Rate Blood Pressure 108/48 (mmHg) O2 Sat by Pulse 97 97 Oximetry 09/12/16 09/13/16 09/13/16 23:25 00:00 00:01 Temperature 99.1 F Pulse Rate 95 97 Respiratory 20 22 Rate Blood Pressure 132/56 (mmHg) O2 Sat by Pulse 97 97 Oximetry 09/13/16 09/13/16 09/13/16 01:00 02:00 03:00 Temperature Pulse Rate 88 92 90 Respiratory 15 19 22 Rate Blood Pressure 121/57 114/59 114/51 (mmHg) O2 Sat by Pulse 97 97 95 Oximetry 09/13/16 09/13/16 09/13/16 03:07 03:51 04:00 Temperature 98.9 F Pulse Rate 102 Respiratory 19 22 Rate Blood Pressure 114/46 (mmHg) O2 Sat by Pulse 98 Oximetry 09/13/16 09/13/16 09/13/16 05:00 06:00 07:00 Temperature Pulse Rate 79 83 89 Respiratory 13 20 19 Rate Blood Pressure 114/52 121/68 119/54 (mmHg) O2 Sat by Pulse 99 97 95 Oximetry 09/13/16 09/13/16 09/13/16 07 07:40 08:00 Temperature 99.7 F Pulse Rate 79 Respiratory 17 14 Rate Blood Pressure 115/50 (mmHg) O2 Sat by Pulse 94 Oximetry 09/13/16 09/13/16 09/13/16 09:00 10:00 10:13 Temperature Pulse Rate 84 92 Respiratory 18 15 18 Rate Blood Pressure 120/61 138/73 (mmHg) O2 Sat by Pulse 98 94 Oximetry 09/13/16 09/13/16 09/13/16 10:32 11:00 12:00 Temperature 99 F Pulse Rate 92 88 Respiratory 15 19 20 Rate Blood Pressure 120/66 121/55 (mmHg) O2 Sat by Pulse 93 100 Oximetry 09/13/16 09/13/16 13:00 13:10 Temperature Pulse Rate 77 Respiratory 15 15 Rate Blood Pressure 106/43 (mmHg) O2 Sat by Pulse 96 Oximetry Oxygen Devices in Use Now: Nasal Cannula - 1L Appearance: NAD Eyes: No Scleral Icterus, PERRLA Ears/Nose/Mouth/Throat: NL Teeth, Lips, Gums, Clear Oropharnyx, Mucous Membranes Moist Neck: NL Appearance and Movements; NL JVP Respiratory: Symmetrical Chest Expansion and Respiratory Effort, Clear to Auscultation Cardiovascular: RRR Abdominal: NL Sounds; No Tenderness; No Distention, No Hepatosplenomegaly Neurological: Alert and Oriented x 3 Result Diagrams: 09/13/16 06:01 09/13/16 06:01 Additional Lab and Data: Lab Results 09/12/16 09/12/16 09/12/16 Range/Units 13:00 13:00 13:25 WBC 6.8 (3.5-10.8) 10^3/ul RBC 2.49 L (4.0-5.4) 10^6/ul Hgb 7.7 L (14.0-18.0) g/dl Hct 23 L (42-52) % MCV 93 (80-94) fL MCH 31 (27-31) pg MCHC 33 (31-36) g/dl RDW 14 (10.5-15) % Plt Count 327 (150-450) 10^3/ul MPV 7 L (7.4-10.4) um3 Neut % (Auto) 71.4 (38-83) % Lymph % (Auto) 13.5 L (25-47) % [place] % (Auto) 9.4 H (1-9) % Eos % (Auto) 3.6 (0-6) % Baso % (Auto) 2.1 H (0-2) % Absolute Neuts (auto) 4.8 (1.5-7.7) 10^3/ul Absolute Lymphs (auto) 0.9 L (1.0-4.8) 10^3/ul Absolute Monos (auto) 0.6 (0-0.8) 10^3/ul Absolute Eos (auto) 0.2 (0-0.6) 10^3/ul Absolute Basos (auto) 0.1 (0-0.2) 10^3/ul Absolute Nucleated RBC 0 10^3/ul Nucleated RBC % 0 INR (Anticoag Therapy) 0.95 (0.89-1.11) Sodium 136 (133-145) mmol/L Potassium 5.2 H (3.5-5.0) mmol/L Chloride 96 L (101-111) mmol/L Carbon Dioxide 32 (22-32) mmol/L Anion Gap 8 (2-11) mmol/L BUN 38 H (6-24) mg/dL Creatinine 8.04 H (0.67-1.17) mg/dL Est GFR ( Amer) 10.3 (>60) Est GFR (Non-Af Amer) 8.0 (>60) BUN/Creatinine Ratio 4.7 L (8-20) Glucose 83 (70-100) mg/dL Lactic Acid (0.5-2.0) mmol/L Calcium 10.1 (8.6-10.3) mg/dL Magnesium 2.2 (1.9-2.7) mg/dL Total Bilirubin 0.70 (0.2-1.0) mg/dL AST 23 (13-39) U/L ALT 12 (7-52) U/L Alkaline Phosphatase 33 L (34-104) U/L Total Creatine Kinase 45 (10-223) U/L Troponin I 0.05 H* (<0.04) ng/mL B-Natriuretic Peptide ( - 100) pg/mL Total Protein 5.9 L (6.4-8.9) g/dL Albumin 3.0 L (3.2-5.2) g/dL Globulin 2.9 (2-4) g/dL Albumin/Globulin Ratio 1.0 (1-3) 09/12/16 09/12/16 Range/Units 13:25 13:25 WBC (3.5-10.8) 10^3/ul RBC (4.0-5.4) 10^6/ul Hgb (14.0-18.0) g/dl Hct (42-52) % MCV (80-94) fL MCH (27-31) pg MCHC (31-36) g/dl RDW (10.5-15) % Plt Count (150-450) 10^3/ul MPV (7.4-10.4) um3 Neut % (Auto) (38-83) % Lymph % (Auto) (25-47) % [place] % (Auto) (1-9) % Eos % (Auto) (0-6) % Baso % (Auto) (0-2) % Absolute Neuts (auto) (1.5-7.7) 10^3/ul Absolute Lymphs (auto) (1.0-4.8) 10^3/ul Absolute Monos (auto) (0-0.8) 10^3/ul Absolute Eos (auto) (0-0.6) 10^3/ul Absolute Basos (auto) (0-0.2) 10^3/ul Absolute Nucleated RBC 10^3/ul Nucleated RBC % INR (Anticoag Therapy) (0.89-1.11) Sodium (133-145) mmol/L Potassium (3.5-5.0) mmol/L Chloride (101-111) mmol/L Carbon Dioxide (22-32) mmol/L Anion Gap (2-11) mmol/L BUN (6-24) mg/dL Creatinine (0.67-1.17) mg/dL Est GFR ( Amer) (>60) Est GFR (Non-Af Amer) (>60) BUN/Creatinine Ratio (8-20) Glucose (70-100) mg/dL Lactic Acid 0.6 (0.5-2.0) mmol/L Calcium (8.6-10.3) mg/dL Magnesium (1.9-2.7) mg/dL Total Bilirubin (0.2-1.0) mg/dL AST (13-39) U/L ALT (7-52) U/L Alkaline Phosphatase (34-104) U/L Total Creatine Kinase (10-223) U/L Troponin I (<0.04) ng/mL B-Natriuretic Peptide 8873 H ( - 100) pg/mL Total Protein (6.4-8.9) g/dL Albumin (3.2-5.2) g/dL Globulin (2-4) g/dL Albumin/Globulin Ratio (1-3) Microbiology and Other Data: Microbiology 09/12/16 16:45 Gram Stain - Final Sputum Expectorated Assess/Plan/Problems-Billing Assessment: 31 yo M h/o ESRD on HD with recent stay c/b cardiac arrest s/p CPR now returning with chest pain - Patient Problems (1) Hypertension Comment: clonidine, norvasc, verapamil, propanolol (2) Shortness of breath Comment: suspect in setting of splinting exacerbated with small pleural effusions and atalectasis pain control ambulate (3) Chest pain Comment: personally reviewed imaging with radiology no e/o fractures suspect bruising in setting of chest compressions (4) ESRD (end stage renal disease) Comment: Last HD Tuesday 09/12 (5) DVT prophylaxis Comment: HS
[2016-09-13] MEDS: Pregabalin CAP(*) 25 MG PO SCH (16:50)
[2016-09-13] MEDS: Heparin VIAL(*) 5000 UNITS/ML VIAL (FIVE THOUSAND) SUBCUT SCH (21:16)
[2016-09-13] MEDS: Amitriptyline TAB* 25 MG PO SCH (21:18)
[2016-09-14] MEDS: HYDROmorphone* 1 MG/ML 1 ML SYR IV SLOW PU PRN (04:24)
[2016-09-14] MEDS: oxyCODONE TAB* 5 MG TAB PO PRN (06:08)
[2016-09-14] MEDS: Heparin VIAL(*) 5000 UNITS/ML VIAL (FIVE THOUSAND) SUBCUT SCH ×3 (08:19→20:16)
[2016-09-14] MEDS: Sevelamer TAB* 800 MG PO SCH ×3 (08:32→17:17)
[2016-09-14] MEDS: Divalproex DR TAB(*) 500 MG PO SCH ×2 (08:32→20:15)
[2016-09-14] MEDS: Ropinirole TAB* 0.5 MG TAB PO SCH ×2 (08:33→20:14)
[2016-09-14] MEDS: Verapamil SR TAB* 240 MG PO SCH (08:33)
[2016-09-14] MEDS: Omeprazole CAP* 20 MG PO SCH ×2 (08:34→16:04)
[2016-09-14] MEDS: Folic Acid TAB* 1 MG PO SCH (08:34)
[2016-09-14] MEDS: Calcium Polycarbophil TAB* 625 MG PO SCH ×2 (08:34→20:14)
[2016-09-14] MEDS: amLODIPine TAB* 5 MG PO SCH (08:34)
[2016-09-14] MEDS: MinoXIDil TAB* 2.5 MG TAB PO SCH ×2 (08:36→20:14)
[2016-09-14] MEDS: Propranolol TAB* 80 MG PO SCH ×3 (08:36→20:14)
[2016-09-14] MEDS: Vitamin B Complex TAB PO SCH (08:37)
[2016-09-14 08:55] LABS: Hematocrit 22 % (42-52); Hemoglobin 7.4 g/dl (14.0-18.0); Mean Corpuscular HGB Conc 33 g/dl (31-36); Mean Corpuscular Hemoglobin 31 pg (27-31); Mean Corpuscular Volume 92 fL (80-94); Mean Platelet Volume 7 um3 (7.4-10.4); Red Blood Count 2.43 10^6/ul (4.0-5.4); Red Cell Distribution Width 14 % (10.5-15); White Blood Count 6.1 10^3/ul (3.5-10.8)
[2016-09-14 09:19] LABS: BUN/Creatinine Ratio 5.8 (8-20); Calcium 9.7 mg/dL (8.6-10.3); Potassium 4.8 mmol/L (3.5-5.0)
[2016-09-14] MEDS: traMADol TAB* 50 MG PO PRN ×2 (10:39→20:15)
[2016-09-14] MEDS: Pregabalin CAP(*) 25 MG PO SCH (17:16)
--- NOTE | 2016-09-14 18:13 | PN ---
Subjective Date of Service: 09/14/16 Interval History: Pain remains significant, no change difficult to take deep breaths, still on oxygen Objective Active Medications: Amitriptyline HCl (Elavil Tab*) 25 mg PO BEDTIME [facility] Last Admin: 09/13/16 21:18 Dose: 25 mg Amlodipine Besylate (Norvasc Tab*) 10 mg PO QAM [facility] Last Admin: 09/14/16 08:34 Dose: 10 mg Calcium Polycarbophil (Fibercon Tab*) 625 mg PO BID [facility] Last Admin: 09/14/16 08:34 Dose: 625 mg Clonidine HCl (Vrgsesvf-Thh-9 0.3 Mg Patch*) 0.3 mg TRANSDERM Q7D [facility] Last Admin: 09/12/16 17:37 Dose: 0.3 mg Divalproex Sodium (Depakote Dr Tab(*)) 1,000 mg PO BID [facility] Last Admin: 09/14/16 08:32 Dose: 1,000 mg Folic Acid (Folvite Tab*) 0.5 mg PO DAILY [facility] Last Admin: 09/14/16 08:34 Dose: 0.5 mg Heparin Sodium (Porcine) (Heparin Vial(*)) 5,000 units SUBCUT Q8HR [facility] Last Admin: 09/14/16 15:04 Dose: 5,000 units Minoxidil (Loniten Tab*) 5 mg PO BID [facility] Last Admin: 09/14/16 08:36 Dose: 5 mg Omeprazole (Prilosec Cap*) 20 mg PO BID@0730,1630 [facility] Last Admin: 09/14/16 16:04 Dose: 20 mg Ondansetron HCl (Zofran Inj*) 4 mg IV Q6H PRN PRN Reason: NAUSEA/VOMITING Ondansetron HCl (Zofran Odt Tab*) 8 mg PO Q6H PRN PRN Reason: NAUSEA Oxycodone/Acetaminophen (Percocet 5/325 Tab*) 1 tab PO Q4H PRN PRN Reason: PAIN Pregabalin (Lyrica Cap(*)) 25 mg PO QPM [facility] Last Admin: 09/14/16 17:16 Dose: 25 mg Propranolol HCl (Inderal Tab*) 80 mg PO TID [facility] Last Admin: 09/14/16 15:04 Dose: 80 mg Ropinirole HCl (Requip Tab*) 0.5 mg PO BID [facility] Last Admin: 09/14/16 08:33 Dose: 0.5 mg Sevelamer Carbonate (Renvela Tab*) 3,200 mg PO TID WITH MEALS [facility] Last Admin: 09/14/16 17:17 Dose: 3,200 mg Tramadol HCl (Ultram*) 50 mg PO Q6H PRN PRN Reason: PAIN - MILD TO MODERATE Last Admin: 09/14/16 10:39 Dose: 50 mg Verapamil HCl (Calan Sr Tab*) 240 mg PO QAM [facility] Last Admin: 09/14/16 08:33 Dose: 240 mg Vitamin B Complex/Vitamin E (Complex B-100*) 1 tab PO DAILY [facility] Last Admin: 09/14/16 08:37 Dose: 1 tab Vital Signs 09/13/16 09/13/16 09/13/16 19:30 20:00 20:06 Temperature 98.4 F Pulse Rate 72 Respiratory 14 14 16 Rate Blood Pressure 118/43 (mmHg) O2 Sat by Pulse 99 Oximetry 09/13/16 09/13/16 09/13/16 21:11 21:30 22:11 Temperature Pulse Rate Respiratory 14 14 14 Rate Blood Pressure (mmHg) O2 Sat by Pulse Oximetry 09/13/16 09/13/16 09/14/16 23:46 23:50 01:50 Temperature 98.2 F Pulse Rate 73 Respiratory 16 14 14 Rate Blood Pressure 116/57 (mmHg) O2 Sat by Pulse 95 Oximetry 09/14/16 09/14/16 09/14/16 04:24 05:50 06:08 Temperature 97.0 F Pulse Rate 72 Respiratory 14 16 14 Rate Blood Pressure 123/44 (mmHg) O2 Sat by Pulse 99 Oximetry 09/14/16 09/14/16 09/14/16 07:30 08:08 09:56 Temperature 98.3 F Pulse Rate 70 Respiratory 16 20 16 Rate Blood Pressure 116/52 (mmHg) O2 Sat by Pulse 98 Oximetry 09/14/16 09/14/16 09/14/16 10:39 12:04 12:39 Temperature 98.1 F Pulse Rate 72 Respiratory 18 16 18 Rate Blood Pressure 100/45 (mmHg) O2 Sat by Pulse 97 Oximetry 09/14/16 09/14/16 09/14/16 15:05 16:18 16:20 Temperature 97.2 F Pulse Rate 70 62 Respiratory 18 Rate Blood Pressure 112/49 103/45 104/48 (mmHg) O2 Sat by Pulse 98 98 Oximetry 09/14/16 17:16 Temperature Pulse Rate Respiratory 16 Rate Blood Pressure (mmHg) O2 Sat by Pulse Oximetry Oxygen Devices in Use Now: Nasal Cannula - 1L Appearance: NAD Eyes: No Scleral Icterus, PERRLA Ears/Nose/Mouth/Throat: NL Teeth, Lips, Gums, Mucous Membranes Moist Neck: NL Appearance and Movements; NL JVP, Trachea Midline Respiratory: Symmetrical Chest Expansion and Respiratory Effort, Clear to Auscultation Cardiovascular: RRR Neurological: Alert and Oriented x 3 Result Diagrams: 09/14/16 08:11 09/14/16 08:11 Additional Lab and Data: Lab Results 09/12/16 09/12/16 09/12/16 Range/Units 13:00 13:00 13:25 WBC 6.8 (3.5-10.8) 10^3/ul RBC 2.49 L (4.0-5.4) 10^6/ul Hgb 7.7 L (14.0-18.0) g/dl Hct 23 L (42-52) % MCV 93 (80-94) fL MCH 31 (27-31) pg MCHC 33 (31-36) g/dl RDW 14 (10.5-15) % Plt Count 327 (150-450) 10^3/ul MPV 7 L (7.4-10.4) um3 Neut % (Auto) 71.4 (38-83) % Lymph % (Auto) 13.5 L (25-47) % [place] % (Auto) 9.4 H (1-9) % Eos % (Auto) 3.6 (0-6) % Baso % (Auto) 2.1 H (0-2) % Absolute Neuts (auto) 4.8 (1.5-7.7) 10^3/ul Absolute Lymphs (auto) 0.9 L (1.0-4.8) 10^3/ul Absolute Monos (auto) 0.6 (0-0.8) 10^3/ul Absolute Eos (auto) 0.2 (0-0.6) 10^3/ul Absolute Basos (auto) 0.1 (0-0.2) 10^3/ul Absolute Nucleated RBC 0 10^3/ul Nucleated RBC % 0 INR (Anticoag Therapy) 0.95 (0.89-1.11) Sodium 136 (133-145) mmol/L Potassium 5.2 H (3.5-5.0) mmol/L Chloride 96 L (101-111) mmol/L Carbon Dioxide 32 (22-32) mmol/L Anion Gap 8 (2-11) mmol/L BUN 38 H (6-24) mg/dL Creatinine 8.04 H (0.67-1.17) mg/dL Est GFR ( Amer) 10.3 (>60) Est GFR (Non-Af Amer) 8.0 (>60) BUN/Creatinine Ratio 4.7 L (8-20) Glucose 83 (70-100) mg/dL Lactic Acid (0.5-2.0) mmol/L Calcium 10.1 (8.6-10.3) mg/dL Magnesium 2.2 (1.9-2.7) mg/dL Total Bilirubin 0.70 (0.2-1.0) mg/dL AST 23 (13-39) U/L ALT 12 (7-52) U/L Alkaline Phosphatase 33 L (34-104) U/L Total Creatine Kinase 45 (10-223) U/L Troponin I 0.05 H* (<0.04) ng/mL B-Natriuretic Peptide ( - 100) pg/mL Total Protein 5.9 L (6.4-8.9) g/dL Albumin 3.0 L (3.2-5.2) g/dL Globulin 2.9 (2-4) g/dL Albumin/Globulin Ratio 1.0 (1-3) 09/12/16 09/12/16 Range/Units 13:25 13:25 WBC (3.5-10.8) 10^3/ul RBC (4.0-5.4) 10^6/ul Hgb (14.0-18.0) g/dl Hct (42-52) % MCV (80-94) fL MCH (27-31) pg MCHC (31-36) g/dl RDW (10.5-15) % Plt Count (150-450) 10^3/ul MPV (7.4-10.4) um3 Neut % (Auto) (38-83) % Lymph % (Auto) (25-47) % [place] % (Auto) (1-9) % Eos % (Auto) (0-6) % Baso % (Auto) (0-2) % Absolute Neuts (auto) (1.5-7.7) 10^3/ul Absolute Lymphs (auto) (1.0-4.8) 10^3/ul Absolute Monos (auto) (0-0.8) 10^3/ul Absolute Eos (auto) (0-0.6) 10^3/ul Absolute Basos (auto) (0-0.2) 10^3/ul Absolute Nucleated RBC 10^3/ul Nucleated RBC % INR (Anticoag Therapy) (0.89-1.11) Sodium (133-145) mmol/L Potassium (3.5-5.0) mmol/L Chloride (101-111) mmol/L Carbon Dioxide (22-32) mmol/L Anion Gap (2-11) mmol/L BUN (6-24) mg/dL Creatinine (0.67-1.17) mg/dL Est GFR ( Amer) (>60) Est GFR (Non-Af Amer) (>60) BUN/Creatinine Ratio (8-20) Glucose (70-100) mg/dL Lactic Acid 0.6 (0.5-2.0) mmol/L Calcium (8.6-10.3) mg/dL Magnesium (1.9-2.7) mg/dL Total Bilirubin (0.2-1.0) mg/dL AST (13-39) U/L ALT (7-52) U/L Alkaline Phosphatase (34-104) U/L Total Creatine Kinase (10-223) U/L Troponin I (<0.04) ng/mL B-Natriuretic Peptide 8873 H ( - 100) pg/mL Total Protein (6.4-8.9) g/dL Albumin (3.2-5.2) g/dL Globulin (2-4) g/dL Albumin/Globulin Ratio (1-3) Microbiology and Other Data: Microbiology 09/12/16 16:45 Gram Stain - Final Sputum Expectorated Assess/Plan/Problems-Billing Assessment: 31 yo M h/o ESRD on HD with recent stay c/b cardiac arrest s/p CPR now returning with chest pain and new oxygen requirement (hypoxic respiratory failure) - Patient Problems (1) Hypertension Comment: clonidine, norvasc, verapamil, propanolol (2) Shortness of breath Comment: suspect in setting of splinting exacerbated with small pleural effusions and atalectasis pain control ambulate (3) Chest pain Comment: personally reviewed imaging with radiology no e/o fractures suspect bruising in setting of chest compressions (4) ESRD (end stage renal disease) Comment: Last HD Tuesday 09/12 (5) DVT prophylaxis Comment: HSQ Status and Disposition: additional HD prior to d/c
[2016-09-14] MEDS: Amitriptyline TAB* 25 MG PO SCH (20:15)
[2016-09-14] MEDS: oxyCODONE/Acetamin 5/325 MG* TAB PO PRN (20:15)
[2016-09-14] MEDS: Calcium Carbonate CHEW TAB* 500 MG (TUMS) PO PRN (23:24)
[2016-09-15] MEDS: Heparin VIAL(*) 5000 UNITS/ML VIAL (FIVE THOUSAND) SUBCUT SCH ×3 (05:42→21:17)
[2016-09-15] MEDS: Omeprazole CAP* 20 MG PO SCH ×2 (08:06→16:13)
[2016-09-15] MEDS: Sevelamer TAB* 800 MG PO SCH ×3 (08:07→17:23)
[2016-09-15] MEDS: oxyCODONE/Acetamin 5/325 MG* TAB PO PRN ×3 (08:07→21:17)
[2016-09-15] MEDS: Propranolol TAB* 80 MG PO SCH ×3 (08:11→20:18)
[2016-09-15] MEDS ORDERED: Heparin DIALYSIS ONLY(*) 1,000 UNITS/ML VIAL DIALYSIS ONE (15:00)
[2016-09-15] MEDS ORDERED: Epoetin Alfa* 10,000 UNITS/ML VIAL IV ONE (15:00)
[2016-09-15] MEDS: Verapamil SR TAB* 240 MG PO SCH (17:14)
[2016-09-15] MEDS: MinoXIDil TAB* 2.5 MG TAB PO SCH ×2 (17:14→20:18)
[2016-09-15] MEDS: amLODIPine TAB* 5 MG PO SCH (17:14)
[2016-09-15] MEDS: Vitamin B Complex TAB PO SCH (17:23)
[2016-09-15] MEDS: Pregabalin CAP(*) 25 MG PO SCH (17:24)
[2016-09-15] MEDS: Folic Acid TAB* 1 MG PO SCH (17:25)
[2016-09-15] MEDS: Divalproex DR TAB(*) 500 MG PO SCH ×2 (17:29→21:23)
[2016-09-15] MEDS: Calcium Polycarbophil TAB* 625 MG PO SCH ×2 (17:29→21:23)
[2016-09-15] MEDS: Ropinirole TAB* 0.5 MG TAB PO SCH ×2 (17:29→21:23)
--- NOTE | 2016-09-15 17:46 | PN ---
Subjective Date of Service: 09/15/16 Interval History: Chest pain this AM unchanged. Still on O2 this AM. Kept for HD this afternoon but SBP much lower after 1L removed. Still 90-92% on RA after HD and at dry weight. Given 1 g CTX after dialysis. Objective Active Medications: Amitriptyline HCl (Elavil Tab*) 25 mg PO BEDTIME [facility] Last Admin: 09/14/16 20:15 Dose: 25 mg Amlodipine Besylate (Norvasc Tab*) 10 mg PO QAM [facility] Last Admin: 09/15/16 17:14 Dose: Not Given Calcium Carbonate (Tums*) 500 mg PO Q4H PRN PRN Reason: INDIGESTION Last Admin: 09/14/16 23:24 Dose: 500 mg Calcium Polycarbophil (Fibercon Tab*) 625 mg PO BID [facility] Last Admin: 09/15/16 17:29 Dose: 625 mg Clonidine HCl (Rkdwfjxy-Pqr-0 0.3 Mg Patch*) 0.3 mg TRANSDERM Q7D [facility] Last Admin: 09/12/16 17:37 Dose: 0.3 mg Divalproex Sodium (Depakote Dr Tab(*)) 1,000 mg PO BID [facility] Last Admin: 09/15/16 17:29 Dose: 1,000 mg Folic Acid (Folvite Tab*) 0.5 mg PO DAILY [facility] Last Admin: 09/15/16 17:25 Dose: 0.5 mg Heparin Sodium (Porcine) (Heparin Vial(*)) 5,000 units SUBCUT Q8HR [facility] Last Admin: 09/15/16 15:51 Dose: 5,000 units Ceftriaxone Sodium 1,000 mg/ (Sodium Chloride) 50 mls @ 200 mls/hr IVPB Q24H [facility] Minoxidil (Loniten Tab*) 5 mg PO BID [facility] Last Admin: 09/15/16 17:14 Dose: Not Given Omeprazole (Prilosec Cap*) 20 mg PO BID@0730,1630 [facility] Last Admin: 09/15/16 16:13 Dose: 20 mg Ondansetron HCl (Zofran Inj*) 4 mg IV Q6H PRN PRN Reason: NAUSEA/VOMITING Ondansetron HCl (Zofran Odt Tab*) 8 mg PO Q6H PRN PRN Reason: NAUSEA Oxycodone/Acetaminophen (Percocet 5/325 Tab*) 1 tab PO Q4H PRN PRN Reason: PAIN Last Admin: 09/15/16 16:13 Dose: 1 tab Pregabalin (Lyrica Cap(*)) 25 mg PO QPM [facility] Last Admin: 09/15/16 17:24 Dose: 25 mg Propranolol HCl (Inderal Tab*) 80 mg PO TID [facility] Last Admin: 09/15/16 15:52 Dose: Not Given Ropinirole HCl (Requip Tab*) 0.5 mg PO BID [facility] Last Admin: 09/15/16 17:29 Dose: 0.5 mg Sevelamer Carbonate (Renvela Tab*) 3,200 mg PO TID WITH MEALS [facility] Last Admin: 09/15/16 17:23 Dose: 3,200 mg Tramadol HCl (Ultram*) 50 mg PO Q6H PRN PRN Reason: PAIN - MILD TO MODERATE Last Admin: 09/14/16 20:15 Dose: 50 mg Verapamil HCl (Calan Sr Tab*) 240 mg PO QAM [facility] Last Admin: 09/15/16 17:14 Dose: Not Given Vitamin B Complex/Vitamin E (Complex B-100*) 1 tab PO DAILY [facility] Last Admin: 09/15/16 17:23 Dose: 1 tab Vital Signs 09/14/16 09/14/16 09/14/16 19:16 19:29 20:00 Temperature 97.9 F Pulse Rate 76 Respiratory 16 16 16 Rate Blood Pressure 131/57 (mmHg) O2 Sat by Pulse 100 Oximetry 09/14/16 09/14/16 09/14/16 20:05 20:15 22:15 Temperature Pulse Rate Respiratory 16 16 Rate Blood Pressure (mmHg) O2 Sat by Pulse 97 Oximetry 09/14/16 09/15/16 09/15/16 23:27 04:31 07:58 Temperature 98.4 F 98.2 F 98.0 F Pulse Rate 74 70 70 Respiratory 16 16 16 Rate Blood Pressure 112/57 112/42 105/38 (mmHg) O2 Sat by Pulse 100 99 100 Oximetry 09/15/16 09/15/16 09/15/16 08:00 08:07 10:07 Temperature Pulse Rate Respiratory 18 18 18 Rate Blood Pressure (mmHg) O2 Sat by Pulse Oximetry 09/15/16 09/15/16 09/15/16 11:13 16:13 17:24 Temperature 97.9 F Pulse Rate 68 Respiratory 16 16 18 Rate Blood Pressure 98/38 (mmHg) O2 Sat by Pulse 100 Oximetry Oxygen Devices in Use Now: Nasal Cannula - 1L Appearance: NAD Eyes: No Scleral Icterus, PERRLA Ears/Nose/Mouth/Throat: NL Teeth, Lips, Gums, Clear Oropharnyx, Mucous Membranes Moist Neck: NL Appearance and Movements; NL JVP, Trachea Midline Respiratory: Symmetrical Chest Expansion and Respiratory Effort, - - decreased at bases but much more air movement today Cardiovascular: RRR Abdominal: NL Sounds; No Tenderness; No Distention, No Hepatosplenomegaly Lymphatic: No Cervical Adenopathy Extremities: No Edema Neurological: Alert and Oriented x 3 Result Diagrams: 09/14/16 08:11 09/14/16 08:11 Additional Lab and Data: Lab Results 09/12/16 09/12/16 09/12/16 Range/Units 13:00 13:00 13:25 WBC 6.8 (3.5-10.8) 10^3/ul RBC 2.49 L (4.0-5.4) 10^6/ul Hgb 7.7 L (14.0-18.0) g/dl Hct 23 L (42-52) % MCV 93 (80-94) fL MCH 31 (27-31) pg MCHC 33 (31-36) g/dl RDW 14 (10.5-15) % Plt Count 327 (150-450) 10^3/ul MPV 7 L (7.4-10.4) um3 Neut % (Auto) 71.4 (38-83) % Lymph % (Auto) 13.5 L (25-47) % [place] % (Auto) 9.4 H (1-9) % Eos % (Auto) 3.6 (0-6) % Baso % (Auto) 2.1 H (0-2) % Absolute Neuts (auto) 4.8 (1.5-7.7) 10^3/ul Absolute Lymphs (auto) 0.9 L (1.0-4.8) 10^3/ul Absolute Monos (auto) 0.6 (0-0.8) 10^3/ul Absolute Eos (auto) 0.2 (0-0.6) 10^3/ul Absolute Basos (auto) 0.1 (0-0.2) 10^3/ul Absolute Nucleated RBC 0 10^3/ul Nucleated RBC % 0 INR (Anticoag Therapy) 0.95 (0.89-1.11) Sodium 136 (133-145) mmol/L Potassium 5.2 H (3.5-5.0) mmol/L Chloride 96 L (101-111) mmol/L Carbon Dioxide 32 (22-32) mmol/L Anion Gap 8 (2-11) mmol/L BUN 38 H (6-24) mg/dL Creatinine 8.04 H (0.67-1.17) mg/dL Est GFR ( Amer) 10.3 (>60) Est GFR (Non-Af Amer) 8.0 (>60) BUN/Creatinine Ratio 4.7 L (8-20) Glucose 83 (70-100) mg/dL Lactic Acid (0.5-2.0) mmol/L Calcium 10.1 (8.6-10.3) mg/dL Magnesium 2.2 (1.9-2.7) mg/dL Total Bilirubin 0.70 (0.2-1.0) mg/dL AST 23 (13-39) U/L ALT 12 (7-52) U/L Alkaline Phosphatase 33 L (34-104) U/L Total Creatine Kinase 45 (10-223) U/L Troponin I 0.05 H* (<0.04) ng/mL B-Natriuretic Peptide ( - 100) pg/mL Total Protein 5.9 L (6.4-8.9) g/dL Albumin 3.0 L (3.2-5.2) g/dL Globulin 2.9 (2-4) g/dL Albumin/Globulin Ratio 1.0 (1-3) 09/12/16 09/12/16 Range/Units 13:25 13:25 WBC (3.5-10.8) 10^3/ul RBC (4.0-5.4) 10^6/ul Hgb (14.0-18.0) g/dl Hct (42-52) % MCV (80-94) fL MCH (27-31) pg MCHC (31-36) g/dl RDW (10.5-15) % Plt Count (150-450) 10^3/ul MPV (7.4-10.4) um3 Neut % (Auto) (38-83) % Lymph % (Auto) (25-47) % [place] % (Auto) (1-9) % Eos % (Auto) (0-6) % Baso % (Auto) (0-2) % Absolute Neuts (auto) (1.5-7.7) 10^3/ul Absolute Lymphs (auto) (1.0-4.8) 10^3/ul Absolute Monos (auto) (0-0.8) 10^3/ul Absolute Eos (auto) (0-0.6) 10^3/ul Absolute Basos (auto) (0-0.2) 10^3/ul Absolute Nucleated RBC 10^3/ul Nucleated RBC % INR (Anticoag Therapy) (0.89-1.11) Sodium (133-145) mmol/L Potassium (3.5-5.0) mmol/L Chloride (101-111) mmol/L Carbon Dioxide (22-32) mmol/L Anion Gap (2-11) mmol/L BUN (6-24) mg/dL Creatinine (0.67-1.17) mg/dL Est GFR ( Amer) (>60) Est GFR (Non-Af Amer) (>60) BUN/Creatinine Ratio (8-20) Glucose (70-100) mg/dL Lactic Acid 0.6 (0.5-2.0) mmol/L Calcium (8.6-10.3) mg/dL Magnesium (1.9-2.7) mg/dL Total Bilirubin (0.2-1.0) mg/dL AST (13-39) U/L ALT (7-52) U/L Alkaline Phosphatase (34-104) U/L Total Creatine Kinase (10-223) U/L Troponin I (<0.04) ng/mL B-Natriuretic Peptide 8873 H ( - 100) pg/mL Total Protein (6.4-8.9) g/dL Albumin (3.2-5.2) g/dL Globulin (2-4) g/dL Albumin/Globulin Ratio (1-3) Microbiology and Other Data: Microbiology 09/12/16 16:45 Gram Stain - Final Sputum Expectorated Assess/Plan/Problems-Billing Assessment: 31 yo M h/o ESRD on HD with recent stay c/b cardiac arrest s/p CPR now returning with chest pain and new oxygen requirement (hypoxic respiratory failure present on admission) - Patient Problems (1) Hypertension Comment: clonidine, norvasc, verapamil, propanolol relative hypotension after HD. Hold all meds and remove clonidine patch (2) Shortness of breath Comment: suspect in setting of splinting exacerbated with small pleural effusions and atalectasis however not resolved after HD. 1 dose CTX now and reevaluate consideration for PNA pain control ambulate (3) Chest pain Comment: personally reviewed imaging with radiology no e/o fractures suspect bruising in setting of chest compressions (4) ESRD (end stage renal disease) Comment: Last HD 09/15 (5) DVT prophylaxis Comment: HSQ Status and Disposition: additional HD prior to d/c
[2016-09-15] MEDS: cefTRIAXone VIAL(*) 1,000 MG in NS 0.9% 50 ML* 50 ML IVPB SCH (18:18)
[2016-09-15 18:21] LABS: Hematocrit 22 % (42-52); Hemoglobin 7.2 g/dl (14.0-18.0); Mean Corpuscular HGB Conc 34 g/dl (31-36); Mean Corpuscular Hemoglobin 31 pg (27-31); Mean Corpuscular Volume 92 fL (80-94); Mean Platelet Volume 7 um3 (7.4-10.4); Red Blood Count 2.34 10^6/ul (4.0-5.4); Red Cell Distribution Width 14 % (10.5-15); White Blood Count 4.9 10^3/ul (3.5-10.8)
[2016-09-15 20:30] LABS: Erythrocyte Sed Rate 40 mm/Hr (0-14)
[2016-09-15] MEDS: Amitriptyline TAB* 25 MG PO SCH (21:17)
[2016-09-16] MEDS: Heparin VIAL(*) 5000 UNITS/ML VIAL (FIVE THOUSAND) SUBCUT SCH ×3 (05:49→21:45)
[2016-09-16] MEDS: Sevelamer TAB* 800 MG PO SCH ×3 (08:49→18:02)
[2016-09-16] MEDS: Omeprazole CAP* 20 MG PO SCH ×2 (08:49→18:02)
[2016-09-16] MEDS: Folic Acid TAB* 1 MG PO SCH (08:50)
[2016-09-16] MEDS: Divalproex DR TAB(*) 500 MG PO SCH ×2 (08:50→21:33)
[2016-09-16] MEDS: Ropinirole TAB* 0.5 MG TAB PO SCH ×2 (08:51→21:33)
[2016-09-16] MEDS: Calcium Polycarbophil TAB* 625 MG PO SCH ×2 (08:51→21:33)
[2016-09-16] MEDS: oxyCODONE/Acetamin 5/325 MG* TAB PO PRN ×2 (08:54→21:32)
[2016-09-16] MEDS: MinoXIDil TAB* 2.5 MG TAB PO SCH ×2 (08:58→21:45)
[2016-09-16] MEDS: amLODIPine TAB* 5 MG PO SCH (08:58)
[2016-09-16] MEDS: Propranolol TAB* 80 MG PO SCH ×3 (08:58→21:45)
[2016-09-16] MEDS: Verapamil SR TAB* 240 MG PO SCH (08:58)
[2016-09-16] MEDS: Vitamin B Complex TAB PO SCH (12:47)
--- NOTE | 2016-09-16 16:28 | PN ---
Subjective Date of Service: 09/16/16 Interval History: Pain stable but continues Not off of oxygen after HD BP remains low off of antihypertensives Objective Active Medications: Amitriptyline HCl (Elavil Tab*) 25 mg PO BEDTIME [facility] Last Admin: 09/15/16 21:17 Dose: 25 mg Amlodipine Besylate (Norvasc Tab*) 10 mg PO QAM [facility] Last Admin: 09/16/16 08:58 Dose: Not Given Calcium Carbonate (Tums*) 500 mg PO Q4H PRN PRN Reason: INDIGESTION Last Admin: 09/14/16 23:24 Dose: 500 mg Calcium Polycarbophil (Fibercon Tab*) 625 mg PO BID [facility] Last Admin: 09/16/16 08:51 Dose: 625 mg Clonidine HCl (Zrsatgha-Qvd-3 0.3 Mg Patch*) 0.3 mg TRANSDERM Q7D [facility] Last Admin: 09/12/16 17:37 Dose: 0.3 mg Divalproex Sodium (Depakote Dr Tab(*)) 1,000 mg PO BID [facility] Last Admin: 09/16/16 08:50 Dose: 1,000 mg Folic Acid (Folvite Tab*) 0.5 mg PO DAILY [facility] Last Admin: 09/16/16 08:50 Dose: 0.5 mg Heparin Sodium (Porcine) (Heparin Vial(*)) 5,000 units SUBCUT Q8HR [facility] Last Admin: 09/16/16 12:48 Dose: 5,000 units Ceftriaxone Sodium 1,000 mg/ (Sodium Chloride) 50 mls @ 200 mls/hr IVPB Q24H [facility] Last Admin: 09/15/16 18:18 Dose: 200 mls/hr Minoxidil (Loniten Tab*) 5 mg PO BID [facility] Last Admin: 09/16/16 08:58 Dose: Not Given Omeprazole (Prilosec Cap*) 20 mg PO BID@0730,1630 [facility] Last Admin: 09/16/16 08:49 Dose: 20 mg Ondansetron HCl (Zofran Inj*) 4 mg IV Q6H PRN PRN Reason: NAUSEA/VOMITING Ondansetron HCl (Zofran Odt Tab*) 8 mg PO Q6H PRN PRN Reason: NAUSEA Oxycodone/Acetaminophen (Percocet 5/325 Tab*) 1 tab PO Q4H PRN PRN Reason: PAIN Last Admin: 09/16/16 08:54 Dose: 1 tab Pregabalin (Lyrica Cap(*)) 25 mg PO QPM [facility] Last Admin: 09/15/16 17:24 Dose: 25 mg Propranolol HCl (Inderal Tab*) 80 mg PO TID [facility] Last Admin: 09/16/16 14:58 Dose: Not Given Ropinirole HCl (Requip Tab*) 0.5 mg PO BID [facility] Last Admin: 09/16/16 08:51 Dose: 0.5 mg Sevelamer Carbonate (Renvela Tab*) 3,200 mg PO TID WITH MEALS [facility] Last Admin: 09/16/16 12:47 Dose: 3,200 mg Tramadol HCl (Ultram*) 50 mg PO Q6H PRN PRN Reason: PAIN - MILD TO MODERATE Last Admin: 09/14/16 20:15 Dose: 50 mg Verapamil HCl (Calan Sr Tab*) 240 mg PO QAM [facility] Last Admin: 09/16/16 08:58 Dose: Not Given Vitamin B Complex/Vitamin E (Complex B-100*) 1 tab PO DAILY [facility] Last Admin: 09/16/16 12:47 Dose: 1 tab Vital Signs 09/15/16 09/15/16 09/15/16 17:24 18:02 18:33 Temperature Pulse Rate 81 Respiratory 18 18 Rate Blood Pressure 118/56 (mmHg) O2 Sat by Pulse 100 Oximetry 09/15/16 09/15/16 09/15/16 19:24 20:00 20:08 Temperature 98.0 F Pulse Rate 73 Respiratory 16 16 16 Rate Blood Pressure 101/38 (mmHg) O2 Sat by Pulse 100 Oximetry 09/15/16 09/15/16 09/15/16 20:42 21:17 23:17 Temperature Pulse Rate Respiratory 16 16 Rate Blood Pressure (mmHg) O2 Sat by Pulse 95 Oximetry 09/15/16 09/16/16 09/16/16 23:41 04:30 07:12 Temperature 98.5 F 98.5 F 98.5 F Pulse Rate 69 70 69 Respiratory 16 16 16 Rate Blood Pressure 111/39 104/36 99/35 (mmHg) O2 Sat by Pulse 100 99 99 Oximetry 09/16/16 09/16/16 09/16/16 08:00 08:20 08:54 Temperature Pulse Rate Respiratory 16 18 Rate Blood Pressure (mmHg) O2 Sat by Pulse 99 Oximetry 09/16/16 09/16/16 09/16/16 10:54 11:24 11:40 Temperature 98.1 F Pulse Rate 70 Respiratory 16 14 Rate Blood Pressure 124/59 (mmHg) O2 Sat by Pulse 100 100 Oximetry 09/16/16 09/16/16 14:57 15:31 Temperature 98.1 F Pulse Rate 72 70 Respiratory 18 Rate Blood Pressure 108/46 105/43 (mmHg) O2 Sat by Pulse 100 Oximetry Oxygen Devices in Use Now: Nasal Cannula - 1L Appearance: NAD Eyes: No Scleral Icterus, PERRLA Ears/Nose/Mouth/Throat: NL Teeth, Lips, Gums, Mucous Membranes Moist Neck: NL Appearance and Movements; NL JVP, Trachea Midline Respiratory: Symmetrical Chest Expansion and Respiratory Effort, - - rales in bases worse on left Cardiovascular: RRR Abdominal: NL Sounds; No Tenderness; No Distention, No Hepatosplenomegaly Extremities: No Edema Neurological: Alert and Oriented x 3 Result Diagrams: 09/15/16 18:11 09/14/16 08:11 Additional Lab and Data: Lab Results 09/12/16 09/12/16 09/12/16 Range/Units 13:00 13:00 13:25 WBC 6.8 (3.5-10.8) 10^3/ul RBC 2.49 L (4.0-5.4) 10^6/ul Hgb 7.7 L (14.0-18.0) g/dl Hct 23 L (42-52) % MCV 93 (80-94) fL MCH 31 (27-31) pg MCHC 33 (31-36) g/dl RDW 14 (10.5-15) % Plt Count 327 (150-450) 10^3/ul MPV 7 L (7.4-10.4) um3 Neut % (Auto) 71.4 (38-83) % Lymph % (Auto) 13.5 L (25-47) % Simpson % (Auto) 9.4 H (1-9) % Eos % (Auto) 3.6 (0-6) % Baso % (Auto) 2.1 H (0-2) % Absolute Neuts (auto) 4.8 (1.5-7.7) 10^3/ul Absolute Lymphs (auto) 0.9 L (1.0-4.8) 10^3/ul Absolute Monos (auto) 0.6 (0-0.8) 10^3/ul Absolute Eos (auto) 0.2 (0-0.6) 10^3/ul Absolute Basos (auto) 0.1 (0-0.2) 10^3/ul Absolute Nucleated RBC 0 10^3/ul Nucleated RBC % 0 INR (Anticoag Therapy) 0.95 (0.89-1.11) Sodium 136 (133-145) mmol/L Potassium 5.2 H (3.5-5.0) mmol/L Chloride 96 L (101-111) mmol/L Carbon Dioxide 32 (22-32) mmol/L Anion Gap 8 (2-11) mmol/L BUN 38 H (6-24) mg/dL Creatinine 8.04 H (0.67-1.17) mg/dL Est GFR ( Amer) 10.3 (>60) Est GFR (Non-Af Amer) 8.0 (>60) BUN/Creatinine Ratio 4.7 L (8-20) Glucose 83 (70-100) mg/dL Lactic Acid (0.5-2.0) mmol/L Calcium 10.1 (8.6-10.3) mg/dL Magnesium 2.2 (1.9-2.7) mg/dL Total Bilirubin 0.70 (0.2-1.0) mg/dL AST 23 (13-39) U/L ALT 12 (7-52) U/L Alkaline Phosphatase 33 L (34-104) U/L Total Creatine Kinase 45 (10-223) U/L Troponin I 0.05 H* (<0.04) ng/mL B-Natriuretic Peptide ( - 100) pg/mL Total Protein 5.9 L (6.4-8.9) g/dL Albumin 3.0 L (3.2-5.2) g/dL Globulin 2.9 (2-4) g/dL Albumin/Globulin Ratio 1.0 (1-3) 09/12/16 09/12/16 Range/Units 13:25 13:25 WBC (3.5-10.8) 10^3/ul RBC (4.0-5.4) 10^6/ul Hgb (14.0-18.0) g/dl Hct (42-52) % MCV (80-94) fL MCH (27-31) pg MCHC (31-36) g/dl RDW (10.5-15) % Plt Count (150-450) 10^3/ul MPV (7.4-10.4) um3 Neut % (Auto) (38-83) % Lymph % (Auto) (25-47) % Simpson % (Auto) (1-9) % Eos % (Auto) (0-6) % Baso % (Auto) (0-2) % Absolute Neuts (auto) (1.5-7.7) 10^3/ul Absolute Lymphs (auto) (1.0-4.8) 10^3/ul Absolute Monos (auto) (0-0.8) 10^3/ul Absolute Eos (auto) (0-0.6) 10^3/ul Absolute Basos (auto) (0-0.2) 10^3/ul Absolute Nucleated RBC 10^3/ul Nucleated RBC % INR (Anticoag Therapy) (0.89-1.11) Sodium (133-145) mmol/L Potassium (3.5-5.0) mmol/L Chloride (101-111) mmol/L Carbon Dioxide (22-32) mmol/L Anion Gap (2-11) mmol/L BUN (6-24) mg/dL Creatinine (0.67-1.17) mg/dL Est GFR ( Amer) (>60) Est GFR (Non-Af Amer) (>60) BUN/Creatinine Ratio (8-20) Glucose (70-100) mg/dL Lactic Acid 0.6 (0.5-2.0) mmol/L Calcium (8.6-10.3) mg/dL Magnesium (1.9-2.7) mg/dL Total Bilirubin (0.2-1.0) mg/dL AST (13-39) U/L ALT (7-52) U/L Alkaline Phosphatase (34-104) U/L Total Creatine Kinase (10-223) U/L Troponin I (<0.04) ng/mL B-Natriuretic Peptide 8873 H ( - 100) pg/mL Total Protein (6.4-8.9) g/dL Albumin (3.2-5.2) g/dL Globulin (2-4) g/dL Albumin/Globulin Ratio (1-3) Microbiology and Other Data: Microbiology 09/12/16 16:45 Gram Stain - Final Sputum Expectorated Assess/Plan/Problems-Billing Assessment: 31 yo M h/o ESRD on HD with recent stay c/b cardiac arrest s/p CPR now returning with chest pain and new oxygen requirement (hypoxic respiratory failure present on admission) - Patient Problems (1) Hypertension Comment: clonidine, norvasc, verapamil, propanolol - ALL on hold 2/2 relative hypotension (2) Shortness of breath Comment: suspected in setting of splinting exacerbated with pleural effusions and atalectasis however not resolved after HD. c/w CTX pain control ambulate (3) Chest pain Comment: personally reviewed imaging with radiology no e/o fractures suspect bruising in setting of chest compressions (4) ESRD (end stage renal disease) Comment: Last HD 09/15 (5) DVT prophylaxis Comment: HSQ Status and Disposition: relative hypotension - holding in hospital until restarted at least on some antihypertensives
[2016-09-16] MEDS: Pregabalin CAP(*) 25 MG PO SCH (18:02)
[2016-09-16] MEDS: cefTRIAXone VIAL(*) 1,000 MG in NS 0.9% 50 ML* 50 ML IVPB SCH (18:04)
[2016-09-16] MEDS: Amitriptyline TAB* 25 MG PO SCH (21:32)
[2016-09-17] MEDS: oxyCODONE/Acetamin 5/325 MG* TAB PO PRN ×3 (04:20→15:40)
[2016-09-17] MEDS: Heparin VIAL(*) 5000 UNITS/ML VIAL (FIVE THOUSAND) SUBCUT SCH ×3 (07:10→20:37)
[2016-09-17] MEDS: Calcium Polycarbophil TAB* 625 MG PO SCH ×2 (08:21→20:31)
[2016-09-17] MEDS: Omeprazole CAP* 20 MG PO SCH ×2 (08:21→17:27)
[2016-09-17] MEDS: Divalproex DR TAB(*) 500 MG PO SCH ×2 (08:21→20:31)
[2016-09-17] MEDS: Sevelamer TAB* 800 MG PO SCH ×3 (08:23→17:25)
[2016-09-17] MEDS: Ropinirole TAB* 0.5 MG TAB PO SCH ×2 (08:25→20:33)
[2016-09-17] MEDS: amLODIPine TAB* 5 MG PO SCH (08:58)
[2016-09-17] MEDS: MinoXIDil TAB* 2.5 MG TAB PO SCH ×3 (08:58→20:32)
[2016-09-17] MEDS: Verapamil SR TAB* 240 MG PO SCH ×2 (08:58→17:28)
[2016-09-17] MEDS: Propranolol TAB* 80 MG PO SCH ×4 (08:58→20:34)
[2016-09-17] MEDS ORDERED: Heparin DIALYSIS ONLY(*) 1,000 UNITS/ML VIAL DIALYSIS ONE (12:00)
[2016-09-17] MEDS ORDERED: Epoetin Alfa* 10,000 UNITS/ML VIAL IV ONE (12:00)
[2016-09-17 12:01] LABS: Albumin 3.1 g/dL (3.2-5.2); BUN/Creatinine Ratio 5.9 (8-20); Calcium 9.9 mg/dL (8.6-10.3); EGFR African American 8.2 (>60); EGFR Non-African American 6.4 (>60); Globulin 2.8 g/dL (2-4); One Over Creatinine 0.1 mg/dL (0.67-1.17); Phosphorus 3.5 mg/dL (2.5-5.0); Potassium 5.2 mmol/L (3.5-5.0); Total Bilirubin 0.6 mg/dL (0.2-1.0); Total Protein 5.9 g/dL (6.4-8.9)
--- NOTE | 2016-09-17 13:49 | CONS ---
CONSULTATION REPORT: DATE OF CONSULT: 09/17/16 REQUESTING PHYSICIAN: Dr. Lima. CONSULTING SERVICE: Infectious Disease. REASON FOR CONSULTATION: Hypoxia, abnormal procalcitonin. IMPRESSION: 1. Admitted with chest pain after recent chest compression, nonproductive cough , 2 L oxygen requirement and dyspnea. Chest CT showed bilateral pleural effusion and bilateral lower lobe atelectasis, taken together as well a BNP of 9000, I think most likely congestive heart failure. Procalcitonin was slightly elevated at 2, down to 1 before antibiotics was started. I think less likely pneumonia. He does have a pleuritic component to his symptoms and so pericarditis is a consideration, nothing abnormal on his chest CT of the pericardium. 2. Endstage renal disease, on hemodialysis via left upper extremity, AV fistula. 3. 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 4. Alport syndrome. 5. Recent cardiac arrest. RECOMMENDATIONS: Stop ceftriaxone. We will follow his oxygen requirement here and his other stomach symptoms here while he is off the antibiotics. HISTORY OF PRESENT ILLNESS: This is a 31-year-old man with history of endstage renal disease admitted with dyspnea and chest pain. His recent history includes an admission on 09/02/16 for nausea and headache and during that admission, he had a cardiac arrest. He was intubated briefly and he was discharged. At home, he had chest pain from the time he left here. It was attributed to chest compressions. Chest pain persisted. He developed some shortness of breath. He came back to the hospital on the . He was afebrile as he has been since for stay. His oxygen saturation was 85%. He was dialyzed. His blood pressure which usually runs in the low 200s and was more in the high 100s and then yesterday was as low as 80 systolic. He was started on ceftriaxone. He has had occasional nonproductive cough, seems worse when leaning forward, the chest pain also seems worse when leaning forward. He had a troponin of 0.06, CRP of 25, and procalcitonin 2.5 on the and went down to 1.1 on the without antibiotics. PAST MEDICAL HISTORY: 1. End-stage renal disease due to Alport syndrome, on hemodialysis via left upper extremity AV fistula. 2. History of kidney transplant, which failed. 3. Migraine headache. 4. History of peritoneal dialysis catheter, which has since been removed. 5. Hypertension. 6. Anemia of chronic disease. MEDICATIONS: 1. Amitriptyline. 2. Calcium carbonate. 3. Depakote. 4. Heparin subcutaneous injection. 5. Minoxidil. 6. Propranolol. 7. Ropinirole. 8. Sevelamer. 9. Verapamil. 10. Amlodipine. ALLERGIES: GABAPENTIN and HYDROCODONE. FAMILY HISTORY: No recurrent infections. SOCIAL HISTORY: He lives in [place] by himself. No travel. No sick contacts. No pets. REVIEW OF SYSTEMS: All negative to full review of systems except as noted above. PHYSICAL EXAM: Vital Signs: Temperature is 36, heart rate is 77, respiratory rate 18, blood pressure 140/82, and O2 saturation 99% on room air. General: He is awake, not in distress. Neurologic: He is oriented x3, follows all commands. HEENT: There is no conjunctival hemorrhage. Oropharynx without lesions. Neck: Supple without nuchal rigidity. Lymph Nodes: There is no cervical, supraclavicular, inguinal, axillary, or epitrochlear lymphadenopathy. Heart: Regular rate and rhythm without murmurs, rubs, or gallops. Lungs: Clear to auscultation bilaterally. Abdomen: Soft, nontender, and nondistended without hepatosplenomegaly. Skin: There is no rash or splinter hemorrhages. Musculoskeletal: There is no spine tenderness to palpation or joint synovitis. There is left upper extremity AV fistula with palpable thrill. DIAGNOSTIC STUDIES/LAB DATA: Creatinine 9, potassium 4.8, white blood cell count 5, hemoglobin 7, platelets 317. Please see impressions and recommendations outlined above which I have discussed with Dr. Lima. Thank you for asking me to see Mr. Sotelo in consultation. [id number]/[facility] #: [id number] LUIS M
[2016-09-17] MEDS: Folic Acid TAB* 1 MG PO SCH (15:40)
[2016-09-17] MEDS: Vitamin B Complex TAB PO SCH (15:41)
[2016-09-17] MEDS ORDERED: amLODIPine TAB* 5 MG PO ONE (16:23)
--- NOTE | 2016-09-17 16:29 | PN ---
Subjective Date of Service: 09/17/16 Interval History: Seen and examined after HD 4L removed during session. BP meds held today and remains normotensive Discussed care with . SBP generally 120s when pt without headaches. Pt feels well, mild headache currently Objective Active Medications: Amitriptyline HCl (Elavil Tab*) 25 mg PO BEDTIME [facility] Last Admin: 09/16/16 21:32 Dose: 25 mg Amlodipine Besylate (Norvasc Tab*) 10 mg PO QAM [facility] Last Admin: 09/17/16 08:58 Dose: Not Given Amlodipine Besylate (Norvasc Tab*) 10 mg PO ONCE ONE Stop: 09/17/16 16:24 Calcium Carbonate (Tums*) 500 mg PO Q4H PRN PRN Reason: INDIGESTION Last Admin: 09/14/16 23:24 Dose: 500 mg Calcium Polycarbophil (Fibercon Tab*) 625 mg PO BID [facility] Last Admin: 09/17/16 08:21 Dose: 625 mg Divalproex Sodium (Depakote Dr Tab(*)) 1,000 mg PO BID [facility] Last Admin: 09/17/16 08:21 Dose: 1,000 mg Folic Acid (Folvite Tab*) 0.5 mg PO DAILY [facility] Last Admin: 09/17/16 15:40 Dose: 0.5 mg Heparin Sodium (Porcine) (Heparin Vial(*)) 5,000 units SUBCUT Q8HR [facility] Last Admin: 09/17/16 14:10 Dose: 5,000 units Minoxidil (Loniten Tab*) 5 mg PO BID [facility] Last Admin: 09/17/16 08:58 Dose: Not Given Omeprazole (Prilosec Cap*) 20 mg PO BID@0730,1630 [facility] Last Admin: 09/17/16 08:21 Dose: 20 mg Ondansetron HCl (Zofran Inj*) 4 mg IV Q6H PRN PRN Reason: NAUSEA/VOMITING Ondansetron HCl (Zofran Odt Tab*) 8 mg PO Q6H PRN PRN Reason: NAUSEA Oxycodone/Acetaminophen (Percocet 5/325 Tab*) 1 tab PO Q4H PRN PRN Reason: PAIN Last Admin: 09/17/16 15:40 Dose: 1 tab Pregabalin (Lyrica Cap(*)) 25 mg PO QPM [facility] Last Admin: 09/16/16 18:02 Dose: 25 mg Propranolol HCl (Inderal Tab*) 80 mg PO TID [facility] Ropinirole HCl (Requip Tab*) 0.5 mg PO BID [facility] Last Admin: 09/17/16 08:25 Dose: 0.5 mg Sevelamer Carbonate (Renvela Tab*) 3,200 mg PO TID WITH MEALS [facility] Last Admin: 09/17/16 12:45 Dose: 3,200 mg Tramadol HCl (Ultram*) 50 mg PO Q6H PRN PRN Reason: PAIN - MILD TO MODERATE Last Admin: 09/14/16 20:15 Dose: 50 mg Vitamin B Complex/Vitamin E (Complex B-100*) 1 tab PO DAILY [facility] Last Admin: 09/17/16 15:41 Dose: 1 tab Vital Signs 09/16/16 09/16/16 09/16/16 18:02 19:02 20:02 Temperature 98.0 F Pulse Rate 73 Respiratory 18 16 16 Rate Blood Pressure 115/51 (mmHg) O2 Sat by Pulse 100 Oximetry 09/16/16 09/16/16 09/16/16 20:51 21:32 23:16 Temperature Pulse Rate Respiratory 16 16 Rate Blood Pressure (mmHg) O2 Sat by Pulse 99 Oximetry 09/16/16 09/16/16 09/17/16 23:32 23:33 04:20 Temperature 98.5 F Pulse Rate 73 Respiratory 16 16 16 Rate Blood Pressure 135/64 (mmHg) O2 Sat by Pulse 98 Oximetry 09/17/16 09/17/16 09/17/16 04:22 06:20 07:57 Temperature 98.0 F 97.5 F Pulse Rate 72 65 Respiratory 16 16 16 Rate Blood Pressure 139/70 141/82 (mmHg) O2 Sat by Pulse 98 100 Oximetry 09/17/16 09/17/16 09/17/16 08:00 08:22 08:28 Temperature Pulse Rate Respiratory 18 18 Rate Blood Pressure (mmHg) O2 Sat by Pulse 99 Oximetry 09/17/16 09/17/16 09/17/16 10:22 10:42 15:40 Temperature Pulse Rate 67 Respiratory 18 18 Rate Blood Pressure (mmHg) O2 Sat by Pulse 97 Oximetry 09/17/16 15:42 Temperature 98.1 F Pulse Rate 85 Respiratory 12 Rate Blood Pressure 128/66 (mmHg) O2 Sat by Pulse 97 Oximetry Oxygen Devices in Use Now: None - RA Appearance: sittinf up in bed, sunglasses on, NAD Eyes: No Scleral Icterus, PERRLA Ears/Nose/Mouth/Throat: NL Teeth, Lips, Gums, Clear Oropharnyx, Mucous Membranes Moist Neck: NL Appearance and Movements; NL JVP, Trachea Midline Respiratory: Symmetrical Chest Expansion and Respiratory Effort, - - decrease din bases, rales in right base Cardiovascular: RRR Abdominal: NL Sounds; No Tenderness; No Distention, No Hepatosplenomegaly Lymphatic: No Cervical Adenopathy Extremities: No Edema Skin: No Rash or Ulcers Neurological: Alert and Oriented x 3 Result Diagrams: 09/15/16 18:11 09/17/16 11:30 Additional Lab and Data: Lab Results 09/12/16 09/12/16 09/12/16 Range/Units 13:00 13:00 13:25 WBC 6.8 (3.5-10.8) 10^3/ul RBC 2.49 L (4.0-5.4) 10^6/ul Hgb 7.7 L (14.0-18.0) g/dl Hct 23 L (42-52) % MCV 93 (80-94) fL MCH 31 (27-31) pg MCHC 33 (31-36) g/dl RDW 14 (10.5-15) % Plt Count 327 (150-450) 10^3/ul MPV 7 L (7.4-10.4) um3 Neut % (Auto) 71.4 (38-83) % Lymph % (Auto) 13.5 L (25-47) % Sully % (Auto) 9.4 H (1-9) % Eos % (Auto) 3.6 (0-6) % Baso % (Auto) 2.1 H (0-2) % Absolute Neuts (auto) 4.8 (1.5-7.7) 10^3/ul Absolute Lymphs (auto) 0.9 L (1.0-4.8) 10^3/ul Absolute Monos (auto) 0.6 (0-0.8) 10^3/ul Absolute Eos (auto) 0.2 (0-0.6) 10^3/ul Absolute Basos (auto) 0.1 (0-0.2) 10^3/ul Absolute Nucleated RBC 0 10^3/ul Nucleated RBC % 0 INR (Anticoag Therapy) 0.95 (0.89-1.11) Sodium 136 (133-145) mmol/L Potassium 5.2 H (3.5-5.0) mmol/L Chloride 96 L (101-111) mmol/L Carbon Dioxide 32 (22-32) mmol/L Anion Gap 8 (2-11) mmol/L BUN 38 H (6-24) mg/dL Creatinine 8.04 H (0.67-1.17) mg/dL Est GFR ( Amer) 10.3 (>60) Est GFR (Non-Af Amer) 8.0 (>60) BUN/Creatinine Ratio 4.7 L (8-20) Glucose 83 (70-100) mg/dL Lactic Acid (0.5-2.0) mmol/L Calcium 10.1 (8.6-10.3) mg/dL Magnesium 2.2 (1.9-2.7) mg/dL Total Bilirubin 0.70 (0.2-1.0) mg/dL AST 23 (13-39) U/L ALT 12 (7-52) U/L Alkaline Phosphatase 33 L (34-104) U/L Total Creatine Kinase 45 (10-223) U/L Troponin I 0.05 H* (<0.04) ng/mL B-Natriuretic Peptide ( - 100) pg/mL Total Protein 5.9 L (6.4-8.9) g/dL Albumin 3.0 L (3.2-5.2) g/dL Globulin 2.9 (2-4) g/dL Albumin/Globulin Ratio 1.0 (1-3) 09/12/16 09/12/16 Range/Units 13:25 13:25 WBC (3.5-10.8) 10^3/ul RBC (4.0-5.4) 10^6/ul Hgb (14.0-18.0) g/dl Hct (42-52) % MCV (80-94) fL MCH (27-31) pg MCHC (31-36) g/dl RDW (10.5-15) % Plt Count (150-450) 10^3/ul MPV (7.4-10.4) um3 Neut % (Auto) (38-83) % Lymph % (Auto) (25-47) % Sully % (Auto) (1-9) % Eos % (Auto) (0-6) % Baso % (Auto) (0-2) % Absolute Neuts (auto) (1.5-7.7) 10^3/ul Absolute Lymphs (auto) (1.0-4.8) 10^3/ul Absolute Monos (auto) (0-0.8) 10^3/ul Absolute Eos (auto) (0-0.6) 10^3/ul Absolute Basos (auto) (0-0.2) 10^3/ul Absolute Nucleated RBC 10^3/ul Nucleated RBC % INR (Anticoag Therapy) (0.89-1.11) Sodium (133-145) mmol/L Potassium (3.5-5.0) mmol/L Chloride (101-111) mmol/L Carbon Dioxide (22-32) mmol/L Anion Gap (2-11) mmol/L BUN (6-24) mg/dL Creatinine (0.67-1.17) mg/dL Est GFR ( Amer) (>60) Est GFR (Non-Af Amer) (>60) BUN/Creatinine Ratio (8-20) Glucose (70-100) mg/dL Lactic Acid 0.6 (0.5-2.0) mmol/L Calcium (8.6-10.3) mg/dL Magnesium (1.9-2.7) mg/dL Total Bilirubin (0.2-1.0) mg/dL AST (13-39) U/L ALT (7-52) U/L Alkaline Phosphatase (34-104) U/L Total Creatine Kinase (10-223) U/L Troponin I (<0.04) ng/mL B-Natriuretic Peptide 8873 H ( - 100) pg/mL Total Protein (6.4-8.9) g/dL Albumin (3.2-5.2) g/dL Globulin (2-4) g/dL Albumin/Globulin Ratio (1-3) Microbiology and Other Data: Microbiology 09/12/16 16:45 Gram Stain - Final Sputum Expectorated Assess/Plan/Problems-Billing Assessment: 31 yo M h/o ESRD on HD with recent stay c/b cardiac arrest s/p CPR now returning with chest pain and new oxygen requirement (hypoxic respiratory failure present on admission) - Patient Problems (1) Hypertension Comment: clonidine, norvasc, verapamil, propanolol - all held for several days after low BP on Thursday Restart norvasc and propanolol 09/17 verapamil 09/19 with hold parameters (2) Shortness of breath Comment: suspected in setting of splinting exacerbated with pleural effusions and atalectasis improved after 3rd inpatient HD 09/17 d/c abx pain control ambulate (3) Chest pain Comment: personally reviewed imaging with radiology no e/o fractures suspect bruising in setting of chest compressions (4) ESRD (end stage renal disease) Comment: Last HD 09/17 (5) DVT prophylaxis Comment: HSQ Status and Disposition: restarting antihypertensives with monitoring. Can likely be discharged tomorrow
[2016-09-17] MEDS: Pregabalin CAP(*) 25 MG PO SCH (17:29)
--- NOTE | 2016-09-17 18:41 | ECHO ---
Patient: DELORIS ADAIR [facility] Rec#: [id number] : 1985 Date: 09/17/2016 Age: 31y Height: 178 cm / 70.1 in Weight: 67.9 kg / 149.7 lbs Sex: M BSA: 1.9 Room#: [facility] Admit Date#: 09/12/2016 Type: Inpatient Referring: Nicola Penaloza MD Reading: Mario Case MD Mechanical Handyman: Jen Beasley RN RDCS CC: Christa Frey MD Transthoracic Echocardiogram Indication: Shortness of breath, chest pain BP: 141/82 HR: 78 Rhythm: NSR Findings History: Alport syndrome, ESRD, renal transplant, HTN, smoker, recent cardiac arrest, flash pulmonary edema Technical Comments: The study quality is good. Left Ventricle: The left ventricular chamber size is normal. Moderate concentric left ventricular hypertrophy is observed. Global left ventricular wall motion and contractility are within normal limits. The left ventricle appears hyperdynamic.There is turbulence and increased LVOT velocity to 1.5 mps c/w mild dynamic LVOT obstruction and the hyperdynamic state. The estimated ejection fraction is greater than 65%. Abnormal left ventricular diastolic function is observed. The left ventricular diastolic filling pattern is consistent with pseudonormalization. Left Atrium: The left atrium is severely dilated. Right Ventricle: The right ventricular cavity size is normal. The right ventricular global systolic function is low normal. Right Atrium: The right atrium is moderately dilated. Aortic Valve: The aortic valve is trileaflet. The aortic valve leaflets are mildly thickened. There is no evidence of aortic regurgitation. There is no evidence of aortic stenosis. Mitral Valve: The mitral valve leaflets are mildly thickened. There is mild mitral regurgitation. There is no evidence of mitral stenosis. Tricuspid Valve: The tricuspid valve leaflets are normal. There is mild to moderate tricuspid regurgitation. There is evidence of mild pulmonary hypertension. There is no tricuspid stenosis. Pulmonic Valve: The pulmonic valve appears normal. There is mild pulmonic regurgitation. Pericardium: There is a small pericardial effusion.0.4 cm posteriorly in the WENCESLAO view, 0.3 cm laterally in the A4C view, and 0.3 cm adjacent to the RA in the A4C view. The respiratory variation is 3% for mitral E peak, 0.2% for LVOT velocity, and 33% for tricuspid E peak. There are no signs of significant hemodynamic compromise.by 2d or doppler. A left pleural effusion is present. Aorta: There is no dilatation of the ascending aorta. There is no dilatation of the aortic arch. Pulmonary Artery: The main pulmonary artery appears normal. Venous: The inferior vena cava appears normal in size. There is an approximate 50% respiratory change in the inferior vena cava dimension. Conclusions Moderate concentric left ventricular hypertrophy is observed. The left ventricle appears hyperdynamic. There is turbulence and increased LVOT velocity to 1.5 mps c/w mild dynamic LVOT obstruction and the hyperdynamic state. The estimated ejection fraction is greater than 65%. The left ventricular diastolic filling pattern is consistent with pseudonormalization. The left atrium is severely dilated. The right ventricular global systolic function is low normal. The right atrium is moderately dilated. There is mild mitral regurgitation. There is mild to moderate tricuspid regurgitation. There is evidence of mild pulmonary hypertension. There is mild pulmonic regurgitation. There is a small pericardial effusion. There are no signs of significant hemodynamic compromise.by 2d or doppler. A left pleural effusion is present. Compared to 02/2016, The pericardial and pleural effusions are new. The PASP has improved from 60 mmhg. Otherwise, similar findings. Measurements Name Value Normal Range RVDdMajor (2D) 4.1 cm (2.2 - 4.4) RAd ISD 4CH 5.1 cm (3.4 - 4.9) RA (A4C)W 4.6 cm (2.9 - 4.6) IVSd (2D) 1.6 cm (0.6 - 1) LVPWd (2D) 1.6 cm (0.6 - 1) LVIDd (2D) 4.1 cm (3.6 - 5.4) LVIDs (2D) 2.6 cm - LV FS (2D) 37 % (25 - 45) Aortic Annulus 2.2 cm (1.4 - 2.6) Ao root diameter (2D) 2.7 cm (2.1 - 3.5) Ascending Ao 2.6 cm (2.1 - 3.4) Aortic arch 2.3 cm (1.8 - 3.4) LA dimension (AP) 2D 4.6 cm (2.3 - 3.8) LAd ISD 4CH 5.6 cm (2.9 - 5.3) LA ISD 4CH W 5.1 cm (2.5 - 4.5) Name Value Normal Range LA ESV SP 4CH (A/L) 100 ml - LA ESV SP 2CH (A/L) 66 ml - LA ESV BP (A/L) 87 ml - LA ESV BP (A/L) index 47 ml/m2 - LA ESV SP 4CH (MOD) 94 ml - LA ESV SP 2CH (MOD) 63 ml - Name Value Normal Range MV E-wave Vmax 1.1 m/sec - MV deceleration time 199 msec - MV A-wave Vmax 0.85 m/sec - MV E:A ratio 1.3 ratio - LV septal e' Vmax 0.08 m/sec - LV lateral e' Vmax 0.1 m/sec - LV E:e' septal ratio 13.8 ratio - LV E:e' lateral ratio 11 ratio - Name Value Normal Range AV Vmax 1.8 m/sec - AV VTI 36.4 cm - AV peak gradient 13.4 mmHg - AV mean gradient 6.7 mmHg - LVOT Vmax 1.5 m/sec - LVOT VTI 31.9 cm - LVOT peak gradient 9 mmHg - LVOT mean gradient 6.2 mmHg - BAO Vmax 1.6 m/sec - Name Value Normal Range TR Vmax 3 m/sec - TR peak gradient 36 mmHg - RAP 8 mmHg - RVSP 44 mmHg - IVC diameter 1.7 cm - Name Value Normal Range PV Vmax 1.4 m/sec -
[2016-09-17] MEDS: traMADol TAB* 50 MG PO PRN (19:00)
[2016-09-17] MEDS: Calcium Carbonate CHEW TAB* 500 MG (TUMS) PO PRN (19:02)
[2016-09-17] MEDS: Amitriptyline TAB* 25 MG PO SCH (20:31)
[2016-09-18] MEDS: Heparin VIAL(*) 5000 UNITS/ML VIAL (FIVE THOUSAND) SUBCUT SCH (05:03)
[2016-09-18] MEDS: oxyCODONE/Acetamin 5/325 MG* TAB PO PRN (05:09)
[2016-09-18] MEDS: Sevelamer TAB* 800 MG PO SCH ×2 (08:42→12:54)
[2016-09-18] MEDS: Folic Acid TAB* 1 MG PO SCH (08:42)
[2016-09-18] MEDS: Omeprazole CAP* 20 MG PO SCH (08:43)
[2016-09-18] MEDS: amLODIPine TAB* 5 MG PO SCH (08:43)
[2016-09-18] MEDS: Verapamil SR TAB* 240 MG PO SCH (08:44)
[2016-09-18] MEDS: Calcium Polycarbophil TAB* 625 MG PO SCH (08:44)
[2016-09-18] MEDS: Divalproex DR TAB(*) 500 MG PO SCH (08:45)
[2016-09-18] MEDS: Ropinirole TAB* 0.5 MG TAB PO SCH (08:45)
[2016-09-18] MEDS: Propranolol TAB* 80 MG PO SCH (08:49)
[2016-09-18] MEDS ORDERED: Propranolol TAB* 80 MG PO SCH (10:23)
--- NOTE | 2016-09-18 10:36 | DCNOTE ---
Patient seen this morning. Feels well. No headache, nausea, vomiting. Chest pain yesterday evening which he says resolved after TUMS. Ready for discharge. On exam, RRR, s1 and s2 present, no m/g/r, lungs CTA B/L, no w/r/r, no LE edema Will discharge home today on current BP regimen (all home meds except for clonidine patch). Patient will monitor BPs at home and will restart Clonidine if SBP > 170 or DBP > 100. Patient scheduled for HD on Thursday (09/20)
[2016-09-18] MEDS: Vitamin B Complex TAB PO SCH (11:25)
[2016-09-18] MEDS: MinoXIDil TAB* 2.5 MG TAB PO SCH (11:25)
[2016-09-18 11:47] VITALS: BP 148/87
--- NOTE | 2016-09-19 07:49 | DS ---
CC: Dr. Frey; Dr. Arana; Dr. Mike DISCHARGE SUMMARY: DATE OF ADMISSION: 09/12/16 DATE OF DISCHARGE: 09/18/16 PRIMARY CARE PHYSICIAN: Dr. Frey. PRINCIPAL DISCHARGE DIAGNOSES: Chest pain, likely secondary to cardiopulmonary resuscitation, possible gastroesophageal reflux disease, hypotension. 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 STUDIES DONE DURING THIS HOSPITALIZATION: Chest x-ray, impression: Findings suggestive of pulmonary edema, new. CT of the chest without contrast, impression: Subsegmental atelectasis and consolidation of the lower lobes bilaterally, small bilateral pleural effusions , patchy ground-glass opacifications throughout both lungs, may reflect diffuse airspace infectious or inflammatory process, ascites. Transthoracic echocardiogram, conclusion: Moderate concentric LVH is observed. Left ventricle appears hyperdynamic. There is turbulence and increased LVOT velocity at 1.5 mps consistent with mild dynamic LVOT obstruction and hyperdynamic state. Estimated ejection fraction is greater than 65%. The left ventricular diastolic filling pattern is consistent with pseudonormalization. The left atrium is severely dilated. The right ventricular global systolic function is below normal. The right atrium is moderately dilated. There is mild mitral regurgitation, [id number] tricuspid regurgitation, evidence of mild pulmonary hypertension, mild pulmonic regurgitation, small pericardial effusion. No signs of significant hemodynamic compromise. Left pleural effusion is present, compared to 02/2016, the pericardial and pleural effusions are new. The PASP has improved from 60 mmHg, otherwise similar findings. HISTORY OF PRESENT ILLNESS AND HOSPITAL SUMMARY: Please see the full history and physical by Fabby Barba NP, for full details. Briefly, Mr. Sotelo is a 31- year-old male with past medical history as above including a recent admission for cardiac arrest secondary to pulmonary edema, who presented to the hospital with chest pain aggravated by deep breath. He felt that this had worsened since discharge; however, he did have this pain prior to admission, which is felt to be due to the prolonged CPR he received. His troponins were trended and they peaked at 0.06. It was felt that the patient's pain was likely due to the CPR. He was treated with pain medications while here in the hospital. He also had an episode of pain the night prior to discharge; however , he felt that this was perhaps a bit different and seemed to resolve with Tums. So, may be there is a component of GERD to it. The patient also had some episodes of hypotension here in the hospital. His antihypertensive medications were held and then gradually restarted until he was back on his home medications except for his clonidine patch. The patient is instructed to continue the hold the patch and check his blood pressures twice daily at home. If his systolic became greater than 170 or his diastolic greater than 100, he is instructed to restart his clonidine patch. The patient was dialyzed last on 09/17/16 and will have his next session as an outpatient on 09/20/16. TIME SPENT: Total time spent on this discharge 45 minutes. This is a summary of the hospitalization. Please see the full medical record for further details. [id number] #: [id number] MTDD
== END 2016-09-18 13:30 | disposition home or self-care (01) | DRG 143 ==
LOC: ED 11:12 → ICU 14:51 → MED 09-13 14:24
PROVIDERS: ADMIT Internal Medicine; ATTEND Hospitalist
PROC: 5A1D60Z (ICD-10-PCS; principal; 2016-09-12)
DX: J98.11 Atelectasis (principal); J96.91 Respiratory failure, unspecified with hypoxia; T86.12 Kidney transplant failure; I12.0 Hypertensive chronic kidney disease with stage 5 chronic kidney disease or end stage renal disease; N18.6 End stage renal disease; I95.3 Hypotension of hemodialysis; J90 Pleural effusion, not elsewhere classified; I27.2 Other secondary pulmonary hypertension; Q87.81 Alport syndrome; R07.89 Other chest pain; Z87.891 Personal history of nicotine dependence; Z72.89 Other problems related to lifestyle; Z88.8 Allergy status to other drugs, medicaments and biological substances; Z88.5 Allergy status to narcotic agent; Z99.2 Dependence on renal dialysis; Z86.711 Personal history of pulmonary embolism; G43.909 Migraine, unspecified, not intractable, without status migrainosus; F41.9 Anxiety disorder, unspecified; F32.9 Major depressive disorder, single episode, unspecified; Z90.5 Acquired absence of kidney; M54.9 Dorsalgia, unspecified; K21.9 Gastro-esophageal reflux disease without esophagitis; D64.9 Anemia, unspecified; E87.5 Hyperkalemia; Z99.81 Dependence on supplemental oxygen; I08.1 Rheumatic disorders of both mitral and tricuspid valves
CPT/HCPCS: 36415; 71020; 71250; 80048; 80053; 82550; 83605; 83735; 83880; 84100; 84145; 84484; 85025; 85610; 85652; 86141; 87070; 87205; 90935; 93005; 93306; 94760; A9270-GY; G0257; J0696; J0885; J1170; J1644; J2270

== ENCOUNTER 2016-10-07 14:21 | Emergency (ER) | payer BC, MEDICAID, MEDICARE ==
[2016-10-07] MEDS ORDERED: HYDROmorphone* 1 MG/ML 1 ML SYR IV ONE (15:15)
[2016-10-07] MEDS ORDERED: Ondansetron INJ* 2 MG/ML VIAL IV ONE (15:15)
[2016-10-07] MEDS ORDERED: hydrALAZINE IV* 20 MG/ML VIAL IV ONE (15:15)
[2016-10-07 15:51] LABS: Hematocrit 23 % (42-52); Hemoglobin 7.6 g/dl (14.0-18.0); Mean Corpuscular HGB Conc 33 g/dl (31-36); Mean Corpuscular Hemoglobin 29 pg (27-31); Mean Corpuscular Volume 90 fL (80-94); Mean Platelet Volume 8 um3 (7.4-10.4); Red Blood Count 2.58 10^6/ul (4.0-5.4); Red Cell Distribution Width 14 % (10.5-15); White Blood Count 5.4 10^3/ul (3.5-10.8)
[2016-10-07 16:13] LABS: Albumin 3.9 g/dL (3.2-5.2); Calcium 9.7 mg/dL (8.6-10.3); EGFR African American 13.4 (>60); EGFR Non-African American 10.4 (>60); Globulin 3.1 g/dL (2-4); Total Bilirubin 0.9 mg/dL (0.2-1.0)
[2016-10-07 17:57] LABS: BUN/Creatinine Ratio 5.3 (8-20); Calcium 8.7 mg/dL (8.6-10.3); EGFR African American 14.8 (>60); EGFR Non-African American 11.5 (>60); Potassium 5.5 mmol/L (3.5-5.0)
[2016-10-07] MEDS ORDERED: HYDROmorphone* 2 MG/ML 1 ML SYR IV SLOW PU ONE (18:26)
[2016-10-07] MEDS ORDERED: hydrALAZINE IV* 20 MG/ML VIAL IV SLOW PU ONE (18:26)
[2016-10-07] MEDS ORDERED: Sodium Polystyrene ORAL.SOL* 15 GM/60 ML BTL PO ONE (18:29)
[2016-10-07 19:09] VITALS: BP 152/86
--- NOTE | 2016-10-07 19:17 | ED ---
Tanja Alejandro Thomas, scribed for Harry Mcconnell MD on 10/07/16 at 1520 . Headache - HPI Summary HPI Summary: The pt is a 31 /o M accompanied by mother presenting to the ED c/o a diffuse migraine TEIXEIRA that began today at 10:00 s/p hemodialysis this AM. His TEIXEIRA began shortly after leaving dialysis. He describes his TEIXEIRA as similar to his past migraines. He did not take any of his BP medication today. The pain is rated 8/ 10. The pt additionally c/o nausea, vomiting, and diaphoresis. The pt denies photophobia, abd pain, fever, and neck pain. PMHx: CHF, HTN, kidney transplant failed and removed, dialysis, chronic renal failure, migraine TEIXEIRA. PSHx: AV shunt (L arm), kidney transplant 2010 and removal 2015. SHx: no alcohol, no drugs, former smoker. FHx: Alport syndrome. Today, he left his dialysis treatment 20 minutes early. - History Of Current Complaint Chief Complaint: EDHeadache Stated Complaint: HIGH BP/MIGRAINE Time Seen by Provider: 10/07/16 14:51 Hx Obtained From: Patient, Family/Psychologist [employer] - mother in room Onset/Duration: Sudden Onset, Started hours ago - 10:00 today during dialysis, Still Present Currently Pain Is: Current Pain Scale(0-10)= - 8 Timing: Constant Location of Headache: Diffuse Aggravating Factor: Nothing Allevating Factors: Nothing Associated Signs And Symptoms: Nausea, Vomiting, Other (Noted In Comments) - POS : diaphoresis; NEG: photophobia, abd pain, fever, neck pain Related History: Similar Episode/DX As: - past migraines - Allergies/Home Medications Allergies/Adverse Reactions: Allergies Allergy/AdvReac Type Severity Reaction Status Date / Time Gabapentin Allergy Severe twitching/double Verified 10/07/16 14:23 vision Hydrocodone [From Vicodin] AdvReac Intermediate TWITCHING Verified 10/07/16 14: 23 Home Medications: Home Medications B-Complex W/ C & Folic Acid [Nephro-Clement] 1 tab PO DAILY 10/07/16 [History Confirmed 10/07/16] amLODIPine TAB* [Norvasc 5 mg TAB*] 10 mg PO QAM 10/07/16 [History Confirmed 03/25] cloNIDine 0.3 MG PATCH* [Lpqmyjnz-Aao-6 0.3 mg Patch*] 0.3 mg TRANSDERM Q7D 03/25 [History Confirmed 10/07/16] PMH/Surg Hx/FS Hx/Imm Hx Previously Healthy: No Endocrine/Hematology History: Reports: Hx Anticoagulant Therapy, Hx Blood Transfusions - February 2016, Hx Anemia Denies: Hx Blood Disorders, Hx Bone Marrow Disease, Hx Diabetes, Hx Systemic Lupus Erythematosus, Hx Sickle Cell Disease, Hx Thyroid Disease, Hx Unexplained Bleeding, Other Endocrine/Hematological Disorders Cardiovascular History: Reports: Hx Congestive Heart Failure - Probable 09/18/16 , Hx Embolism - PE, Hx Hypertension - ON MEDICATION FOR, Other Cardiovascular Problems/Disorders - RT.KIDNEY TRANSPLANT FAILED AND REMOVED/DIALYSIS Denies: Hx Aneurysm, Hx Angina, Hx Angioplasty, Hx Auto Implanted Cardiovert Defib, Hx Cardiac Arrest, Hx Cardiomegaly, Hx Congenital Heart Disease, Hx Coronary Artery Disease, Hx Deep Vein Thrombosis, Hx Hypercholesterolemia, Hx Hypotension, Hx Pacemaker/ICD, Hx Peripheral Vascular Disease, Hx Rheumatic Fever, Hx Syncope, Hx Valvular Heart Disease Respiratory History: Reports: Hx Pulmonary Edema - Flash pulmonary edema resulting in CPR 09/02/16, Other Respiratory Problems/Disorders - "left lung repaired for pneumothorax in 2006 Denies: Hx Asthma, Hx Chronic Bronchitis, Hx Chronic Obstructive Pulmonary Disease (COPD), Hx Cystic Fibrosis, Hx Lung Cancer, Hx Pleural Effusion, Hx Pneumonia, Hx Pulmonary Embolism, Hx Seasonal Allergies, Hx Sleep Apnea GI History: Denies: Hx Cirrhosis, Hx Crohn's Disease, Hx Diverticulosis, Hx Gall Bladder Disease, Hx Gastroesophageal Reflux Disease, Hx Gastrointestinal Bleed, Hx Hiatal Hernia, Hx Irritable Bowel, Hx Jaundice, Hx Obstructive Bowel, Hx Ileostomy, Hx Pyloric Stenosis, Hx Ulcer, Other GI Disorders History: Reports: Hx Acute Renal Failure, Hx Chronic Renal Failure, Hx Dialysis, Hx Renal Disease - TRANSPLANT - RT, dialysis every Mon., Wed., Fri., Other Problems/Disorders - DIALYSIS- Denies: Hx Benign Prostatic Hyperplasia, Hx Kidney Infection, Hx Kidney Stones Musculoskeletal History: Denies: Hx Arthritis, Hx Back Problems, Hx Bursitis, Hx Congenital Bone Abnormalities, Hx Fibromyalgia, Hx Gout, Hx Orthopedic Injury, Hx Osteoporosis, Hx Scoliosis, Hx Tendonitis, Other Musculoskeletal History Sensory History: Reports: Hx Contacts or Glasses, Hx Deafness, Hx Hearing Problem - moderate hearing loss bilat ears, Other Sensory Impairments - Photophobia Denies: Hx Cataracts, Hx Eye Injury, Hx Eye Prosthesis, Hx Glaucoma, Hx Legally Blind, Hx Macular Degeneration, Hx Vision Problem, Hx Hearing Aid Opthamlomology History: Reports: Hx Contacts or Glasses, Other Sensory Impairments - Photophobia Denies: Hx Cataracts, Hx Eye Injury, Hx Eye Prosthesis, Hx Glaucoma, Hx Legally Blind, Hx Macular Degeneration, Hx Vision Problem Neurological History: Reports: Hx Headaches, Hx Migraine - 1-2 PER MONTH, Hx Seizures - September 2016, Other Neuro Impairments/Disorders - Restless leg syndrome Denies: Hx Dementia, Hx Developmental Delay, Hx Nerve Disease, Hx Spinal Cord Injury, Hx Transient Ischemic Attacks (TIA) Psychiatric History: Reports: Hx Anxiety - NEW-STATES MD IS AWARE, Hx Depression - NEW-STATES MD IS AWARE Denies: Hx Attention Deficit Hyperactivity Disorder, Hx Eating Disorder, Hx Panic Disorder, Hx Post Traumatic Stress Disorder, Hx Inpatient Treatment, Hx Community Mental Health Tx, Hx Schizophrenia, Hx Bipolar Disorder, Hx Suicide Attempt, Hx of Violent Episodes Against Others, Hx Substance Abuse, Other Psychiatric Issues/Disorders - Cancer History Hx Chemotherapy: No Hx Radiation Therapy: No Hx Palliative Cancer Treatment: No - Surgical History Surgery Procedure, Year, and Place: 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[place], [place]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; LEFT LUNG SX FOR REPAIR; LEFT ARM FISTULA FOR DIALISYS 2015, RIGHT CHEST WALL CATH FOR DIALYSIS; RIGHT NEPHRECTOMY - kidney rejected, 2016 Hx Anesthesia Reactions: No - Immunization History Date of Tetanus Vaccine: Unk Date of Influenza Vaccine: Fall 2014 Infectious Disease History: Denies: Hx Hepatitis, Hx of Known/Suspected MRSA, Hx Shingles, Hx Tuberculosis, History Other Infectious Disease, Traveled Outside the US in Last 30 Days - Family History Known Family History: Positive: Other - Mother carrier of alport disease gene Negative: Blood Disorder - Social History Alcohol Use: None Alcohol Amount: Once per month before getting sick in February Hx Substance Use: No Substance Use Type: Reports: None Hx Tobacco Use: Yes Smoking Status (MU): Former Smoker Type: Cigarettes Amount Used/How Often: 1 PPD X 4 YEARS Have You Smoked in the Last Year: No Review of Systems Positive: Skin Diaphoresis. Negative: Fever Eyes: Negative Negative: Photophobia ENT: Negative Cardiovascular: Negative Respiratory: Negative Positive: Vomiting, Nausea. Negative: Abdominal Pain Genitourinary: Negative Musculoskeletal: Negative Negative: Other - NEG: neck pain Skin: Negative Positive: Headache - began today at 10:00 during dialysis, diffuse, 10/16, similar to past migraines Psychological: Normal All Other Systems Reviewed And Are Negative: Yes Physical Exam - Summary Physical Exam Summary: The patient is well-nourished in no acute distress and in no acute pain. The skin is warm and diaphoretic and skin color reflects adequate perfusion. HEENT: The head is normocephalic and atraumatic. The pupils are equal and reactive. The conjunctivae are clear and without drainage. Nares are patent and without drainage. Mouth reveals moist mucous membranes and the throat is without erythema and exudate. The external ears are intact. The ear canals are patent and without drainage. The tympanic membranes are intact. Neck is supple with full range of motion and non-tender. There are no carotid bruits. There is no neck vein distension. Respiratory: Chest is non-tender. Lungs are clear to auscultation and breath sounds are symmetrical and equal. Cardiovascular: Heart is regular rate and rhythm. Three is a murmur auscultated. There is no rub auscultated. There is no peripheral edema and pulses are symmetrical and equal. Abdomen: The abdomen is soft and non-tender. There are normal bowel sounds heard in all four quadrants and there is no organomegaly palpated. Musculoskeletal: There is no back pain noted. Extremities are non-tender with full range of motion. There is good capillary refill. There is no peripheral edema or calf tenderness elicited. Neurological: Patient is alert and oriented to person, place and time. There is no weakness in arms or legs. Psychiatric: The patient has an appropriate affect and does not exhibit any anxiety or depression. Triage Information Reviewed: Yes Vital Signs On Initial Exam: Initial Vitals Temp Pulse Resp BP Pulse Ox 97.9 F 76 14 160/117 100 10/07/16 14:23 10/07/16 14:23 10/07/16 14:23 10/07/16 14:23 10/07/16 14:23 Vital Signs Reviewed: Yes Diagnostics - Vital Signs Vital Signs Temp Pulse Resp BP Pulse Ox 10/07/16 14:23 97.9 F 76 14 160/117 100 - Laboratory Lab Results: Lab Results 10/07/16 10/07/16 10/07/16 Range/Units 15:40 15:40 15:40 WBC 5.4 (3.5-10.8) 10^3/ul RBC 2.58 L (4.0-5.4) 10^6/ul Hgb 7.6 L (14.0-18.0) g/dl Hct 23 L (42-52) % MCV 90 (80-94) fL MCH 29 (27-31) pg MCHC 33 (31-36) g/dl RDW 14 (10.5-15) % Plt Count 258 (150-450) 10^3/ul MPV 8 (7.4-10.4) um3 Neut % (Auto) 73.4 (38-83) % Lymph % (Auto) 15.9 L (25-47) % Clinch % (Auto) 5.1 (1-9) % Eos % (Auto) 1.9 (0-6) % Baso % (Auto) 3.7 H (0-2) % Absolute Neuts (auto) 3.9 (1.5-7.7) 10^3/ul Absolute Lymphs (auto) 0.8 L (1.0-4.8) 10^3/ul Absolute Monos (auto) 0.3 (0-0.8) 10^3/ul Absolute Eos (auto) 0.1 (0-0.6) 10^3/ul Absolute Basos (auto) 0.2 (0-0.2) 10^3/ul Absolute Nucleated RBC 0 10^3/ul Nucleated RBC % 0 Sodium 132 L (133-145) mmol/L Potassium 7.1 H* (3.5-5.0) mmol/L Chloride 92 L (101-111) mmol/L Carbon Dioxide 36 H (22-32) mmol/L Anion Gap 4 (2-11) mmol/L BUN 32 H (6-24) mg/dL Creatinine 6.37 H (0.67-1.17) mg/dL Est GFR ( Amer) 13.4 (>60) Est GFR (Non-Af Amer) 10.4 (>60) BUN/Creatinine Ratio 5.0 L (8-20) Glucose 83 (70-100) mg/dL Lactic Acid 0.7 (0.5-2.0) mmol/L Calcium 9.7 (8.6-10.3) mg/dL Total Bilirubin 0.90 (0.2-1.0) mg/dL AST 14 (13-39) U/L ALT 6 L (7-52) U/L Alkaline Phosphatase 39 (34-104) U/L Total Protein 7.0 (6.4-8.9) g/dL Albumin 3.9 (3.2-5.2) g/dL Globulin 3.1 (2-4) g/dL Albumin/Globulin Ratio 1.3 (1-3) 10/07/16 Range/Units 17:30 WBC (3.5-10.8) 10^3/ul RBC (4.0-5.4) 10^6/ul Hgb (14.0-18.0) g/dl Hct (42-52) % MCV (80-94) fL MCH (27-31) pg MCHC (31-36) g/dl RDW (10.5-15) % Plt Count (150-450) 10^3/ul MPV (7.4-10.4) um3 Neut % (Auto) (38-83) % Lymph % (Auto) (25-47) % Clinch % (Auto) (1-9) % Eos % (Auto) (0-6) % Baso % (Auto) (0-2) % Absolute Neuts (auto) (1.5-7.7) 10^3/ul Absolute Lymphs (auto) (1.0-4.8) 10^3/ul Absolute Monos (auto) (0-0.8) 10^3/ul Absolute Eos (auto) (0-0.6) 10^3/ul Absolute Basos (auto) (0-0.2) 10^3/ul Absolute Nucleated RBC 10^3/ul Nucleated RBC % Sodium 135 (133-145) mmol/L Potassium 5.5 H D (3.5-5.0) mmol/L Chloride 99 L (101-111) mmol/L Carbon Dioxide 30 (22-32) mmol/L Anion Gap 6 (2-11) mmol/L BUN 31 H (6-24) mg/dL Creatinine 5.84 H (0.67-1.17) mg/dL Est GFR ( Amer) 14.8 (>60) Est GFR (Non-Af Amer) 11.5 (>60) BUN/Creatinine Ratio 5.3 L (8-20) Glucose 77 (70-100) mg/dL Lactic Acid (0.5-2.0) mmol/L Calcium 8.7 (8.6-10.3) mg/dL Total Bilirubin (0.2-1.0) mg/dL AST (13-39) U/L ALT (7-52) U/L Alkaline Phosphatase (34-104) U/L Total Protein (6.4-8.9) g/dL Albumin (3.2-5.2) g/dL Globulin (2-4) g/dL Albumin/Globulin Ratio (1-3) Result Diagrams: 10/07/16 15:40 10/07/16 17:30 Lab Statement: Any lab studies that have been ordered have been reviewed, and results considered in the medical decision making process. - EKG 17:28 Cardiac Rate: NL - 82 BPM EKG Interpretation: Peaked T waves -- will get another Re-Evaluation - Re-Evaluation First Eval Re-Evaluation Time: 17:29 Change: Improved Comment: the pts TEIXEIRA is better, he is feeling better, and his BP is down. Second Eval Re-Evaluation Time: 18:23 Change: Worse Comment: TEIXEIRA has increased Headache Course/Dx - Course Assessment/Plan: The pt is a 31 /o M accompanied by mother presenting to the ED c/o a diffuse migraine TEIXEIRA that began today at 10:00 s/p hemodialysis this AM. His TEIXEIRA began shortly after leaving dialysis. He describes his TEIXEIRA as similar to his past migraines. He did not take any of his BP medication today. The pain is rated 8/10. The pt additionally c/o nausea, vomiting, and diaphoresis. The pt denies photophobia, abd pain, fever, and neck pain. PMHx: CHF, HTN, kidney transplant failed and removed, dialysis, chronic renal failure, migraine TEIXEIRA. PSHx: AV shunt (L arm), kidney transplant 2010 and removal 2015. SHx: no alcohol , no drugs, former smoker. FHx: Alport syndrome. Today, he left his dialysis treatment 20 minutes early. Bloodwork shows RBC 2.58, Hgb 7.6, Hct 23, Lymph % 15.9, Baso % 3.7, Absolute lymphs 0.8, Sodiuum 132, Chloride 92, CO2 36, Creatinine 6.37, BUN/Creatinine 5.0, ALT 6. In the ED course he was given Dilaudid, Zofran, and Apresoline. At 17:30, I consulted with Dr. Larry, who talked to Dr. Arana about getting repeat labs for 5. At 17:29, the pts TEIXEIRA is better, he is feeling better, and his BP is down. EKG at 17:28 shows peaked T waves, so another EKG will be obtained. Re-eval at 18:23 shows that his TEIXEIRA has increased. I also consulted with Dr. Siegel at 18:30, who stated that Dr. Arana told her that Dr. Arana recommended 5 to be discharged once he was given medication to treat his potassium. Patient will be diagnosed with hypertensive urgency, TEIXEIRA, and hyperkalamia. He will be discharged with follow-up from Dr. Arana and his PCP. Pt is agreeable with this plan. - Diagnoses Differential Diagnosis/HQI/PQRI: Migraine, Other - chronic renal failure, uncontrolled hypertension, hyperkalemia, migraine headache Provider Diagnoses: Headache, Hypertensive urgency, Hyperkalemia, Chronic renal failure - Physician Notifications Discussed Care Of Patient With: Lynn Larry Time Discussed With Above Provider: 17:30 Instructed by Provider To: Other - I consulted with Dr. Larry, who talked to Dr. Arana about getting repeat labs for 5. I also consulted with Dr. Siegel at 18 :30, who stated that Dr. Arana told her that Dr. Arana recommended 5 to be discharged once he was given medication to treat his potassium. - Critical Care Time Critical Care Time: 30-74 min - 30 minutes Discharge - Discharge Plan Condition: Stable Disposition: HOME Patient Education Materials: Acute Headache (ED), Hyperkalemia (ED), Hypertension (ED) Referrals: Christa Frey MD [Primary Care Provider] - 3 Days Jose De Jesus Arana MD [Medical Doctor] - 3 Days Additional Instructions: Follow up with Dr. Frey and Dr. Arana. The documentation as recorded by the Tanja florence Thomas accurately reflects the service I personally performed and the decisions made by , Harry Mcconnell MD.
[2016-10-07 23:32] LABS: Potassium 7.1 mmol/L (3.5-5.0)
== END 2016-10-07 19:30 | disposition home or self-care (01) ==
LOC: ED 14:21
DX: R51 Headache (principal); I12.9 Hypertensive chronic kidney disease with stage 1 through stage 4 chronic kidney disease, or unspecified chronic kidney disease; N18.9 Chronic kidney disease, unspecified; E87.5 Hyperkalemia; I50.9 Heart failure, unspecified; Z94.0 Kidney transplant status; Z79.01 Long term (current) use of anticoagulants; Z86.718 Personal history of other venous thrombosis and embolism
CPT/HCPCS: 36415; 80048; 80053; 83605; 85025; 93005; 99284; A9270-GY; J0360; J1170; J2405

== ENCOUNTER 2016-10-31 18:27 | Emergency (ER) | payer BC, MEDICAID ==
[2016-10-31] MEDS ORDERED: Morphine INJ* 2 MG/ML 1 ML SYRINGE IV ONE ×2 (19:54→21:30)
[2016-10-31 20:35] LABS: Hematocrit 36 % (42-52); Hemoglobin 11.8 g/dl (14.0-18.0); Mean Corpuscular HGB Conc 33 g/dl (31-36); Mean Corpuscular Hemoglobin 29 pg (27-31); Mean Corpuscular Volume 86 fL (80-94); Mean Platelet Volume 7 um3 (7.4-10.4); Red Blood Count 4.15 10^6/ul (4.0-5.4); Red Cell Distribution Width 15 % (10.5-15); White Blood Count 4.8 10^3/ul (3.5-10.8)
[2016-10-31 20:39] LABS: BUN/Creatinine Ratio 4.1 (8-20); Calcium 11.7 mg/dL (8.6-10.3); EGFR Non-African American 6.3 (>60); Globulin 3.6 g/dL (2-4); Magnesium 2.4 mg/dL (1.9-2.7); Phosphorus 6.4 mg/dL (2.5-5.0); Potassium 4.1 mmol/L (3.5-5.0); Total Bilirubin 1.3 mg/dL (0.2-1.0); Total Protein 8.6 g/dL (6.4-8.9)
[2016-10-31] MEDS ORDERED: Ondansetron INJ* 2 MG/ML VIAL IV ONE (21:30)
[2016-10-31] MEDS ORDERED: HYDROmorphone* 1 MG/ML 1 ML SYR IV SLOW PU ONE ×2 (22:23→22:28)
--- NOTE | 2016-10-31 22:36 | ED ---
Ashlyn Alejandro Rebecca, scribed for Jose Daniel Jnuior MD on 10/31/16 at 1946 . Complex/Multi-Sys Presentation - HPI Summary HPI Summary: Pt is a 31 y/o M who presents to ED c/o abd pain with N/V/D. Pt reports he began feeling unwell 3 days ago with abd pain and N/V at night when taking his medications. Since yesterday, he has been unable to keep down any PO intake and began experiencing diarrhea. Associated abdominal pain is intermittent and currently moderate, ranked 6/10. Sx aggravated by PO intake, alleviated by nothing. Pt reports he has been unable to take his medications for the last 3 days. Discussed sx with his dialysis nurse yesterday but has not consulted with anybody today. Allergies to Hydrocodone and Gabapentin. - History Of Current Complaint Chief Complaint: EDAbdPain Time Seen by Provider: 10/31/16 19:43 Hx Obtained From: Patient Onset/Duration: Lasting Days - 3 days, Still Present Severity Currently: Moderate - 6/10 Location: Negative, Pain At: - Abdomen Aggravating Factor(s): PO intake Alleviating Factor(s): Nothing Associated Signs And Symptoms: Positive: Nausea, Vomiting, Diarrhea, Abdominal Pain - Allergies/Home Medications Allergies/Adverse Reactions: Allergies Allergy/AdvReac Type Severity Reaction Status Date / Time Gabapentin Allergy Severe twitching/double Verified 10/31/16 18:33 vision Hydrocodone [From Vicodin] AdvReac Intermediate TWITCHING Verified 10/31/16 18: 33 PMH/Surg Hx/FS Hx/Imm Hx Endocrine/Hematology History: Reports: Hx Anticoagulant Therapy, Hx Blood Transfusions - February 2016, Hx Anemia Denies: Hx Blood Disorders, Hx Bone Marrow Disease, Hx Diabetes, Hx Systemic Lupus Erythematosus, Hx Sickle Cell Disease, Hx Thyroid Disease, Hx Unexplained Bleeding, Other Endocrine/Hematological Disorders Cardiovascular History: Reports: Hx Congestive Heart Failure - Probable 09/18/16 , Hx Embolism - PE, Hx Hypertension - ON MEDICATION FOR, Other Cardiovascular Problems/Disorders - RT.KIDNEY TRANSPLANT FAILED AND REMOVED/DIALYSIS Denies: Hx Aneurysm, Hx Angina, Hx Angioplasty, Hx Auto Implanted Cardiovert Defib, Hx Cardiac Arrest, Hx Cardiomegaly, Hx Congenital Heart Disease, Hx Coronary Artery Disease, Hx Deep Vein Thrombosis, Hx Hypercholesterolemia, Hx Hypotension, Hx Pacemaker/ICD, Hx Peripheral Vascular Disease, Hx Rheumatic Fever, Hx Syncope, Hx Valvular Heart Disease Respiratory History: Reports: Hx Pulmonary Edema - Flash pulmonary edema resulting in CPR 09/02/16, Other Respiratory Problems/Disorders - "left lung repaired for pneumothorax in 2006 Denies: Hx Asthma, Hx Chronic Bronchitis, Hx Chronic Obstructive Pulmonary Disease (COPD), Hx Cystic Fibrosis, Hx Lung Cancer, Hx Pleural Effusion, Hx Pneumonia, Hx Pulmonary Embolism, Hx Seasonal Allergies, Hx Sleep Apnea GI History: Denies: Hx Cirrhosis, Hx Crohn's Disease, Hx Diverticulosis, Hx Gall Bladder Disease, Hx Gastroesophageal Reflux Disease, Hx Gastrointestinal Bleed, Hx Hiatal Hernia, Hx Irritable Bowel, Hx Jaundice, Hx Obstructive Bowel, Hx Ileostomy, Hx Pyloric Stenosis, Hx Ulcer, Other GI Disorders History: Reports: Hx Acute Renal Failure, Hx Chronic Renal Failure, Hx Dialysis, Hx Renal Disease - TRANSPLANT - RT, dialysis every Mon., Wed., Thu., Other Problems/Disorders - DIALYSIS- Denies: Hx Benign Prostatic Hyperplasia, Hx Kidney Infection, Hx Kidney Stones Musculoskeletal History: Reports: Hx Back Problems - chronic back pain Denies: Hx Arthritis, Hx Bursitis, Hx Congenital Bone Abnormalities, Hx Fibromyalgia, Hx Gout, Hx Orthopedic Injury, Hx Osteoporosis, Hx Scoliosis, Hx Tendonitis, Other Musculoskeletal History Sensory History: Reports: Hx Contacts or Glasses, Hx Deafness, Hx Hearing Problem - moderate hearing loss bilat ears, Other Sensory Impairments - Photophobia Denies: Hx Cataracts, Hx Eye Injury, Hx Eye Prosthesis, Hx Glaucoma, Hx Legally Blind, Hx Macular Degeneration, Hx Vision Problem, Hx Hearing Aid Opthamlomology History: Reports: Hx Contacts or Glasses, Other Sensory Impairments - Photophobia Denies: Hx Cataracts, Hx Eye Injury, Hx Eye Prosthesis, Hx Glaucoma, Hx Legally Blind, Hx Macular Degeneration, Hx Vision Problem Neurological History: Reports: Hx Headaches, Hx Migraine - 1-2 PER MONTH, Hx Seizures - September 2016, Other Neuro Impairments/Disorders - Restless leg syndrome Denies: Hx Dementia, Hx Developmental Delay, Hx Nerve Disease, Hx Spinal Cord Injury, Hx Transient Ischemic Attacks (TIA) Psychiatric History: Reports: Hx Anxiety - NEW-STATES MD IS AWARE, Hx Depression - NEW-STATES MD IS AWARE Denies: Hx Attention Deficit Hyperactivity Disorder, Hx Eating Disorder, Hx Panic Disorder, Hx Post Traumatic Stress Disorder, Hx Inpatient Treatment, Hx Community Mental Health Tx, Hx Schizophrenia, Hx Bipolar Disorder, Hx Suicide Attempt, Hx of Violent Episodes Against Others, Hx Substance Abuse, Other Psychiatric Issues/Disorders - Cancer History Hx Chemotherapy: No Hx Radiation Therapy: No Hx Palliative Cancer Treatment: No - Surgical History Surgery Procedure, Year, and Place: 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[place], [place]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; LEFT LUNG SX FOR REPAIR; LEFT ARM FISTULA FOR DIALISYS 2015, RIGHT CHEST WALL CATH FOR DIALYSIS; RIGHT NEPHRECTOMY - kidney rejected, 2015 Hx Anesthesia Reactions: No - Immunization History Date of Tetanus Vaccine: Unk Date of Influenza Vaccine: Fall 2014 Infectious Disease History: No Infectious Disease History: Denies: Hx Hepatitis, Hx of Known/Suspected MRSA, Hx Shingles, Hx Tuberculosis, History Other Infectious Disease, Traveled Outside the [place] in Last 30 Days - Family History Known Family History: Positive: Other - Mother carrier of alport disease gene Negative: Blood Disorder - Social History Alcohol Use: None Alcohol Amount: Once per month before getting sick in February Hx Substance Use: No Substance Use Type: Reports: None Hx Tobacco Use: Yes Smoking Status (MU): Former Smoker Type: Cigarettes Amount Used/How Often: 1 PPD X 4 YEARS Have You Smoked in the Last Year: No Review of Systems Negative: Fever Positive: Abdominal Pain, Vomiting, Diarrhea, Nausea All Other Systems Reviewed And Are Negative: Yes Physical Exam Triage Information Reviewed: Yes Vital Signs On Initial Exam: Initial Vitals Temp Pulse Resp BP Pulse Ox 99.3 F 84 16 174/115 100 10/31/16 18:30 10/31/16 18:30 10/31/16 18:30 10/31/16 18:30 10/31/16 18:30 Vital Signs Reviewed: Yes Appearance: Positive: Well-Appearing, Pain Distress - mild discomfort Skin: Positive: Warm Head/Face: Positive: Normal Head/Face Inspection Eyes: Positive: EOMI, MELODY ENT: Positive: Hearing grossly normal Neck: Positive: Supple, Nontender Respiratory/Lung Sounds: Positive: Breath Sounds Present Cardiovascular: Positive: RRR Abdomen Description: Positive: Nontender, Soft Bowel Sounds: Positive: Present Musculoskeletal: Positive: Strength/ROM Intact Neurological: Positive: Sensory/Motor Intact, Alert, Oriented to Person Place, Time, Normal Gait Psychiatric: Positive: Affect/Mood Appropriate Diagnostics - Vital Signs Vital Signs Temp Pulse Resp BP Pulse Ox 10/31/16 19:40 11 10/31/16 19:37 176/113 10/31/16 18:30 99.3 F 84 16 174/115 100 - Laboratory Result Diagrams: 10/31/16 20:16 10/31/16 20:16 Lab Statement: Any lab studies that have been ordered have been reviewed, and results considered in the medical decision making process. Re-Evaluation - Re-Evaluation First Eval Change: Improved Complex Multi-Symp Course/Dx Assessment/Plan: Pt is a 31 y/o M who presents to ED c/o abd pain with N/V/D. Pt reports he began feeling unwell 3 days ago with abd pain and vomiting at night when taking his medications. Since yesterday, he has been unable to keep down any PO intake and has had diarrhea. Associated abdominal pain is currently moderate, ranked 6/10. Sx aggravated by PO intake, alleviated by nothing. Pt reports he has been unable to take his medications for the last 3 days. Discussed sx with his dialysis nurse yesterday but has not consulted with anybody today. Allergies to Hydrocodone and Gabapentin. WBC of 4.8. In the ED course, the pt received morphine, Zofran and Dilaudid which improved sx. He will be D/C to home with Dx of TEIXEIRA and N/V and a follow up with his PCP. He understands and agrees. Elevated BP noted and advised to f/u with PCP. - Diagnoses Provider Diagnoses: Headache, Nausea and vomiting Discharge - Discharge Plan Condition: Stable Disposition: HOME Patient Education Materials: General Headache (ED), Acute Nausea and Vomiting ( ED) Referrals: Christa Frey MD [Primary Care Provider] - 3 Days The documentation as recorded by the Ashlyn florence Rebecca accurately reflects the service I personally performed and the decisions made by me, Jose Daniel Junior MD.
[2016-10-31 23:08] VITALS: BP 161/91
== END 2016-10-31 23:08 | disposition home or self-care (01) ==
LOC: ED 18:27
DX: R51 Headache (principal); R11.2 Nausea with vomiting, unspecified; R19.7 Diarrhea, unspecified; R10.9 Unspecified abdominal pain; Z79.01 Long term (current) use of anticoagulants
CPT/HCPCS: 36415; 80053; 83735; 84100; 85025; 96374; 96375; 99283; J1170; J2270; J2405

== ENCOUNTER 2016-12-22 13:54 | Inpatient (IN) | payer BC, MEDICARE ==
[2016-12-22] MEDS ORDERED: Aspirin Low Dose CHEW TAB* 81 MG PO ONE (14:31)
[2016-12-22 14:58] LABS: Hematocrit 41 % (42-52); Hemoglobin 13.6 g/dl (14.0-18.0); Mean Corpuscular HGB Conc 33 g/dl (31-36); Mean Corpuscular Hemoglobin 29 pg (27-31); Mean Corpuscular Volume 88 fL (80-94); Mean Platelet Volume 7 um3 (7.4-10.4); Red Blood Count 4.69 10^6/ul (4.0-5.4); Red Cell Distribution Width 19 % (10.5-15); White Blood Count 13.2 10^3/ul (3.5-10.8)
[2016-12-22 15:13] LABS: Albumin 4.2 g/dL (3.2-5.2); BUN/Creatinine Ratio 5.4 (8-20); Calcium 10.3 mg/dL (8.6-10.3); EGFR African American 5.9 (>60); EGFR Non-African American 4.6 (>60); Magnesium 2.7 mg/dL (1.9-2.7); Total Bilirubin 1.2 mg/dL (0.2-1.0); Total Protein 7.2 g/dL (6.4-8.9)
--- NOTE | 2016-12-22 15:14 | RAD ---
INDICATION: Chest pain and shortness of breath. COMPARISON: Comparison is made with a prior study from September 12, 2016. TECHNIQUE: A portable view of the chest was obtained. FINDINGS: The heart is within normal limits in size for this portable exam. There is mild prominence of the interstitial markings with more focal alveolar infiltrates present in both lungs more extensive on the right side. There are trace bilateral pleural effusions. IMPRESSION: BILATERAL INTERSTITIAL AND ALVEOLAR INFILTRATES AND TRACE BILATERAL PLEURAL EFFUSIONS SUGGESTIVE OF PNEUMONIA AND/OR PULMONARY EDEMA.
[2016-12-22 15:44] LABS: Troponin I 0.06 ng/mL (<0.04)
[2016-12-22 15:45] LABS: Potassium 7.7 mmol/L (3.5-5.0)
[2016-12-22] MEDS ORDERED: Albuterol 2.5 MG/3 ML NEB.SOL* (0.083%) INH ONE (15:58)
[2016-12-22] MEDS ORDERED: Ondansetron INJ* 2 MG/ML VIAL IV ONE (15:59)
[2016-12-22] MEDS ORDERED: Morphine INJ* 4 MG/ML 1 ML CARPUJECT IV ONE ×2 (15:59→16:35)
[2016-12-22] MEDS ORDERED: Nitroglycerin 2% OINT* 1 GM PAK TOPICAL ONE (16:00)
[2016-12-22] MEDS ORDERED: Sodium Polystyrene ORAL.SOL* 15 GM/60 ML BTL PO ONE (16:02)
[2016-12-22] MEDS ORDERED: hydrALAZINE IV* 20 MG/ML VIAL IV SLOW PU ONE (16:34)
[2016-12-22] MEDS ORDERED: Acetaminophen TAB* 325 MG PO PRN (16:38)
[2016-12-22] MEDS ORDERED: Ondansetron INJ* 2 MG/ML VIAL IV PRN (16:38)
[2016-12-22] MEDS ORDERED: hydrALAZINE IV* 20 MG/ML VIAL IV SLOW PU PRN (16:52)
[2016-12-22] MEDS ORDERED: Sevelamer TAB* 800 MG PO SCH (17:00)
[2016-12-22] MEDS ORDERED: Insulin REGULAR(*) 1 UNITS UNIT IV PUSH ONE (17:02)
[2016-12-22] MEDS ORDERED: Dextrose 50% VIAL 50 ml IV ONE (17:03)
[2016-12-22] MEDS: Dextrose 50% Syringe 50 ML* 25 GM/50 ML SYRINGE ONE (17:25)
[2016-12-22] MEDS ORDERED: Dextrose 50% Syringe 50 ML* 25 GM/50 ML SYRINGE IV PUSH ONE (18:00)
[2016-12-22] MEDS: Propranolol TAB* 80 MG PO SCH ×2 (18:17→23:55)
[2016-12-22 18:39] LABS: Troponin I 0.06 ng/mL (<0.04)
[2016-12-22] MEDS ORDERED: Heparin DIALYSIS ONLY(*) 1,000 UNITS/ML VIAL DIALYSIS ONE (19:00)
[2016-12-22] MEDS ORDERED: Epoetin Alfa* 3,000 UNITS/ML VIAL IV ONE (19:00)
[2016-12-22 19:17] LABS: Phosphorus 1.8 mg/dL (2.5-5.0)
[2016-12-22] MEDS: MinoXIDil TAB* 10 MG TAB PO SCH (20:51)
[2016-12-22] MEDS: Ropinirole TAB* 0.5 MG TAB PO SCH (20:51)
[2016-12-22] MEDS: Sevelamer TAB* 800 MG PO SCH (20:51)
[2016-12-22] MEDS ORDERED: MinoXIDil TAB* 2.5 MG TAB PO SCH (21:00)
[2016-12-22] MEDS: traMADol TAB* 50 MG PO PRN (21:02)
--- NOTE | 2016-12-22 23:25 | HP ---
CC: Dr. Frey; Dr. Arana * HISTORY AND PHYSICAL: DATE OF ADMISSION: 12/22/16 PRIMARY CARE PROVIDER: Dr. Frey. ATTENDING PHYSICIAN WHILE IN THE HOSPITAL: Jose Mcbride MD * (report dictated by Kirstin Sparrow NP). CONSULTING REFINERY OPERATOR HELPER CRACKING UNIT: Dr. Arana. CHIEF COMPLAINT: 1. Increased weight gain. 2. Shortness of breath. 3. Orthopnea. 4. Coughing pink frothy sputum. HISTORY OF PRESENT ILLNESS: Mr. Sotelo is a 31-year-old male patient who has a history of Alport syndrome, he is on hemodialysis, he has end-stage renal disease, he has a history of PD dialysis, and history of hypertension and anemia of chronic disease. He comes in today, says he went to dialysis on Thursday and then throughout the day on Thursday, he was drinking fluids that he should not have been drinking. He has been drinking increased p.o. fluids. He has been drinking lots of ice water and also been drinking orange juice knows that he should not be drinking. He further admits that he had dietary indiscretion. He says that he took his meds this morning, but he noticed that he was getting fluid overloaded. He felt like he had gained some weight just in the last 24 to 36 hours. In addition to this, he knew that he was having a headache and is coughing up some pink frothy sputum, which is typical when he does become fluid overloaded. He knew that he was probably going to need dialysis, so he came into the hospital today to be evaluated, which he was noted that he was hyperkalemic. Chest x-ray was concerning for the pulmonary edema, so we were asked to evaluate for admission and it was also noted that his blood pressure was significantly elevated in the 200s over the one teens diastolically. He does state that he has had a headache, but it is much better now given that the blood pressure is coming down. He denies having any chest pain. He only says that it hurts when he takes a deep breath or when he coughs. Because of the hyperkalemia and the fluid overload, and the fact that he needs an emergent dialysis, we were asked to evaluate for admission. PAST MEDICAL HISTORY: Significant for: 1. Alport syndrome. 2. End-stage renal disease. 3. PD dialysis, status post removal. 4. Hypertension. 5. Anemia. PAST SURGICAL HISTORY: 1. He has had a failed renal transplant with removal, he has had AV fistula. 2. PD catheter placement and subsequent removal. 3. He has had a pneumothorax. MEDICATIONS: His home meds according to the recall and the list that we were able to obtain include: 1. Tramadol 50 mg to 100 mg every 6 hours as needed. 2. Norvasc 5 mg daily. 3. Renvela 3200 mg p.o. with snacks and meals. 4. Requip 0.5 mg p.o. b.i.d. 5. Inderal 80 mg p.o. t.i.d. 6. Zofran 8 mg p.o. daily as needed. 7. Prilosec 20 mg daily. 8. 15 mg p.o. b.i.d. 9. Fiber 1 capsule b.i.d. 10. B complex vitamin 1 capsule p.o. daily. ALLERGIES TO MEDICATIONS: Include GABAPENTIN and HYDROCODONE. FAMILY HISTORY: His mother is a carrier of Alport disease and father has a history of hypertension. SOCIAL HISTORY: He does not smoke. He does not drink. Surrogate decision maker is his mother. REVIEW OF SYSTEMS: There is no documented fever. He does admit to having significant weight change, he is unable to quantify how much, he thinks he weighs in the 140s now and his dry weight is right around 137. No rhinorrhea. No sore throat. No thyroid enlargement. He denies having any chest pain with exertion, when he coughs it does hurt. He does admit to orthopnea. He does admit to dyspnea on exertion. He denies any abdominal pain. He denies any nausea. He denies having any vomiting. There is no dysuria. There is no frequency. No loss of consciousness. No pruritus and no skin ulcerations. Review of 14 systems completed, all others negative. PHYSICAL EXAMINATION GENERAL: At this time, Mr. Sotelo is a 31-year-old male patient, he is chronically ill appearing, he is sitting in the ER stretcher. He does not appear to be in any acute distress. VITAL SIGNS: Blood pressure 181/114, pulse 88, respirations 16, O2 sat 95%, temperature 97.9. His blood pressure when he initially came in again was 181/ 113 and was as high as 218/192 and is now 179/116. HEENT: Head atraumatic, normocephalic. Eyes: EOMs are intact. Sclerae anicteric and not pale. Throat: Oral mucosa appears to be moist. No oropharyngeal erythema. NECK: Supple. LUNGS: Crackles noted throughout. Had equal diaphragmatic expansion. HEART: Sounds S1, S2. Regular rate and rhythm. He does have a pansystolic murmur. ABDOMEN: Soft, flat, nontender. Bowel sounds present. EXTREMITIES: Pulses 2+ throughout. He has no peripheral edema. He is moving all 4 extremities with 5/5 strength. NEUROLOGIC: The patient is awake, alert, oriented x3. Tongue midline. Transfer Specialist were equal. No gross focal deficits. SKIN: Intact. LABORATORY DATA/DIAGNOSTIC STUDIES: Labs today revealed WBC of 13.2, RBC of 4.69, hemoglobin 13.6, hematocrit of 41, platelet count of 192,000. His INR was 0.92. PTT of 34.6. Sodium was 133, potassium of 7.7, chloride of 93, bicarb 30, BUN 70, creatinine of 12.91, his glucose was 77, lactic was 0.8, calcium of 10.3, mag 2.7. Total bili 1.2, AST 16, ALT 8, alk phos 40. His CK was 81, CK-MB was 2.6, myoglobin was 87. Troponin was 0.06. BNP was 4732. His albumin was 4.2. He had a chest x-ray obtained today, which revealed bilateral interstitial alveolar infiltrates and trace bilateral pleural effusion suggesting pneumonia or pulmonary edema. He had an EKG obtained today , which revealed normal sinus rhythm with a rate of 86 with peaked T-waves. No ST elevations or T-wave inversions were noted. Old medical records reviewed. ASSESSMENT AND PLAN: Mr. Sotelo is a 31-year-old male patient with multiple medical problems coming into the ED today with complaints of cough, shortness of breath, and orthopnea, on evaluation found to be fluid overload and hyperkalemic. He will be admitted under inpatient status for: 1. Pulmonary edema. I suspect this is related to dietary indiscretion. Dr Arana was consulted by Dr. De La Rosa in the ED. The patient will be going for emergent dialysis in our ICU and we will continue to follow. I do not believe that he has pneumonia that the chest x-ray suggests given the fact that this came on pretty suddenly and he has not had any prodrome symptoms of pneumonia or any fevers, so I think with dialysis this will hopefully improve his x-ray. 2. Hyperkalemia. Probably secondary again to dietary indiscretion. He did receive treatment here in the ED with calcium gluconate. He did get a nebulizer as well. He got Kayexalate. I am going to give him insulin and dextrose as well, as this was not given in the ED. Again, dialysis nurse will be there to dialyze the patient. We will repeat his BMP later this evening. 3. End-stage renal disease and Alport syndrome. Again, management per Dr. Arana. 4. Hypertension. With hypertensive urgency, again I suspect that being that he is fluid overloaded, this is driving the blood pressure and hopefully with dialysis we will be able to manage this better. I did order p.r.n. hydralazine and we will continue his meds. In addition to this, he was put on a nitro paste. If I need to, I will start him on a IV drip, but I am hopeful that with dialysis we can avoid this. 5. History of anemia. We will follow his H and H. 6. Indeterminate troponin. Again, this is at his baseline. We will monitor. 7. DVT prophylaxis. He will be placed on SCDs. 8. Code status. He is full code. 9. Fluids, electrolytes, and nutrition. He will get a renal diet. TIME SPENT: On admission was 60 minutes, greater than half the time was spent face- to-face with the patient obtaining my history and physical, other half the time spent going over the plan of care with the patient and implementing plan of care. I did discuss the plan of care with my attending, Dr. Mcbride; he is in agreement. KIRSTIN SPARROW NP [id number]/[facility] #: [id number] LUIS M
[2016-12-22 23:43] LABS: BUN/Creatinine Ratio 4.3 (8-20); Calcium 9.2 mg/dL (8.6-10.3); EGFR African American 10.8 (>60); EGFR Non-African American 8.4 (>60)
[2016-12-23] MEDS ORDERED: HYDROmorphone INJ* 2 MG/ML CARPUJECT SYRINGE IV SLOW PU ONE ×2 (00:10→08:26)
[2016-12-23] MEDS: Sevelamer TAB* 800 MG PO SCH ×2 (02:38→09:10)
[2016-12-23] MEDS: traMADol TAB* 50 MG PO PRN (05:32)
[2016-12-23 05:35] LABS: Hematocrit 34 % (42-52); Hemoglobin 11.4 g/dl (14.0-18.0); Mean Corpuscular HGB Conc 33 g/dl (31-36); Mean Corpuscular Hemoglobin 29 pg (27-31); Mean Corpuscular Volume 88 fL (80-94); Mean Platelet Volume 8 um3 (7.4-10.4); Red Blood Count 3.91 10^6/ul (4.0-5.4); Red Cell Distribution Width 19 % (10.5-15); White Blood Count 6.1 10^3/ul (3.5-10.8)
[2016-12-23 05:48] LABS: BUN/Creatinine Ratio 4.8 (8-20); Calcium 9.2 mg/dL (8.6-10.3); Potassium 4.4 mmol/L (3.5-5.0)
[2016-12-23] MEDS ORDERED: Omeprazole CAP* 20 MG PO SCH (07:30)
[2016-12-23] MEDS ORDERED: Verapamil SR TAB* 240 MG PO SCH (09:00)
[2016-12-23] MEDS ORDERED: amLODIPine TAB* 5 MG PO SCH (09:00)
[2016-12-23] MEDS: MinoXIDil TAB* 10 MG TAB PO SCH (09:10)
[2016-12-23] MEDS: Propranolol TAB* 80 MG PO SCH (09:11)
[2016-12-23] MEDS: Ropinirole TAB* 0.5 MG TAB PO SCH (09:11)
[2016-12-23] MEDS ORDERED: HYDROmorphone INJ* 2 MG/ML CARPUJECT SYRINGE IV SLOW PU PRN (09:51)
[2016-12-23 10:10] VITALS: BP 146/80
--- NOTE | 2016-12-23 14:11 | ED ---
Oscar Alejandro Alfonso, scribed for Dex De La Rosa MD on 12/22/16 at 1619 . Shortness of Breath - HPI Summary HPI Summary: This patient is a 31 year old M BIBA to [facility] accompanied by mother and female with a chief complaint of SOB since earlier today. He reports a possible fluid since his last Dialysis on Thursday and todays symptoms are similar to the last time his fluid overloaded. His dialysis two days ago went well and was fully completed. The patient rates the pain 5/10 in severity. Symptoms alleviated by nothing. Patient reports N/V, water weight gain, CP, migraines, back pain, bilateral LE pain, photophobia, insomnia, and coughing. Patient denies dizziness, and lightheadedness. - History of Current Complaint Chief Complaint: EDShortnessOfBreath Time Seen by Provider: 12/22/16 14:05 Hx Obtained From: Patient Onset/Duration: Gradual Onset, Lasting Hours, Still Present Timing: Constant Alleviating Factors: Nothing - Allergy/Home Medications Allergies/Adverse Reactions: Allergies Allergy/AdvReac Type Severity Reaction Status Date / Time Gabapentin Allergy Severe twitching/double Verified 12/22/16 14:02 vision Aspirin Allergy Unknown Verified 12/22/16 17:43 Reaction Details Hydrocodone [From Vicodin] AdvReac Intermediate TWITCHING Verified 12/22/16 14: 02 Home Medications: Home Medications MinoXIDil TAB* [Loniten TAB*] 10 mg PO BID 12/22/16 [History Confirmed 12/22/16] Omeprazole CAP* [Prilosec CAP* 20 MG] 20 mg PO DAILY 12/22/16 [History Confirmed 12/22/16] amLODIPine TAB* [Norvasc 5 mg TAB*] 5 mg PO DAILY 12/22/16 [History Confirmed ] PMH/Surg Hx/FS Hx/Imm Hx Endocrine/Hematology History: Reports: Hx Anticoagulant Therapy, Hx Blood Transfusions - February 2016, Hx Anemia Denies: Hx Blood Disorders, Hx Bone Marrow Disease, Hx Diabetes, Hx Systemic Lupus Erythematosus, Hx Sickle Cell Disease, Hx Thyroid Disease, Hx Unexplained Bleeding, Other Endocrine/Hematological Disorders Cardiovascular History: Reports: Hx Congestive Heart Failure - Probable 09/18/16 , Hx Embolism - PE, Hx Hypertension - ON MEDICATION FOR, Other Cardiovascular Problems/Disorders - RT.KIDNEY TRANSPLANT FAILED AND REMOVED/DIALYSIS Denies: Hx Aneurysm, Hx Angina, Hx Angioplasty, Hx Auto Implanted Cardiovert Defib, Hx Cardiac Arrest, Hx Cardiomegaly, Hx Congenital Heart Disease, Hx Coronary Artery Disease, Hx Deep Vein Thrombosis, Hx Hypercholesterolemia, Hx Hypotension, Hx Pacemaker/ICD, Hx Peripheral Vascular Disease, Hx Rheumatic Fever, Hx Syncope, Hx Valvular Heart Disease Respiratory History: Reports: Hx Pulmonary Edema - Flash pulmonary edema resulting in CPR 09/02/16, Other Respiratory Problems/Disorders - "left lung repaired for pneumothorax in 2006 Denies: Hx Asthma, Hx Chronic Bronchitis, Hx Chronic Obstructive Pulmonary Disease (COPD), Hx Cystic Fibrosis, Hx Lung Cancer, Hx Pleural Effusion, Hx Pneumonia, Hx Pulmonary Embolism, Hx Seasonal Allergies, Hx Sleep Apnea GI History: Denies: Hx Cirrhosis, Hx Crohn's Disease, Hx Diverticulosis, Hx Gall Bladder Disease, Hx Gastroesophageal Reflux Disease, Hx Gastrointestinal Bleed, Hx Hiatal Hernia, Hx Irritable Bowel, Hx Jaundice, Hx Obstructive Bowel, Hx Ileostomy, Hx Pyloric Stenosis, Hx Ulcer, Other GI Disorders History: Reports: Hx Acute Renal Failure, Hx Chronic Renal Failure, Hx Dialysis, Hx Renal Disease - TRANSPLANT - RT, dialysis every Thu., Wed., Thu., Other Problems/Disorders - DIALYSIS- Denies: Hx Benign Prostatic Hyperplasia, Hx Kidney Infection, Hx Kidney Stones Musculoskeletal History: Reports: Hx Back Problems - chronic back pain Denies: Hx Arthritis, Hx Bursitis, Hx Congenital Bone Abnormalities, Hx Fibromyalgia, Hx Gout, Hx Orthopedic Injury, Hx Osteoporosis, Hx Scoliosis, Hx Tendonitis, Other Musculoskeletal History Sensory History: Reports: Hx Contacts or Glasses, Hx Deafness, Hx Hearing Problem - moderate hearing loss bilat ears, Other Sensory Impairments - Photophobia Denies: Hx Cataracts, Hx Eye Injury, Hx Eye Prosthesis, Hx Glaucoma, Hx Legally Blind, Hx Macular Degeneration, Hx Vision Problem, Hx Hearing Aid Opthamlomology History: Reports: Hx Contacts or Glasses, Other Sensory Impairments - Photophobia Denies: Hx Cataracts, Hx Eye Injury, Hx Eye Prosthesis, Hx Glaucoma, Hx Legally Blind, Hx Macular Degeneration, Hx Vision Problem Neurological History: Reports: Hx Headaches, Hx Migraine - 1-2 PER MONTH, Hx Seizures - September 2016, Other Neuro Impairments/Disorders - Restless leg syndrome Denies: Hx Dementia, Hx Developmental Delay, Hx Nerve Disease, Hx Spinal Cord Injury, Hx Transient Ischemic Attacks (TIA) Psychiatric History: Reports: Hx Anxiety - NEW-STATES MD IS AWARE, Hx Depression - NEW-STATES MD IS AWARE Denies: Hx Attention Deficit Hyperactivity Disorder, Hx Eating Disorder, Hx Panic Disorder, Hx Post Traumatic Stress Disorder, Hx Inpatient Treatment, Hx Community Mental Health Tx, Hx Schizophrenia, Hx Bipolar Disorder, Hx Suicide Attempt, Hx of Violent Episodes Against Others, Hx Substance Abuse, Other Psychiatric Issues/Disorders - Cancer History Hx Chemotherapy: No Hx Radiation Therapy: No Hx Palliative Cancer Treatment: No - Surgical History Surgery Procedure, Year, and Place: 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[place], [place]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; LEFT LUNG SX FOR REPAIR; LEFT ARM FISTULA FOR DIALISYS 2015, RIGHT CHEST WALL CATH FOR DIALYSIS; RIGHT NEPHRECTOMY - kidney rejected, 2015 Hx Anesthesia Reactions: No - Immunization History Date of Tetanus Vaccine: Unk Date of Influenza Vaccine: Fall 2014 Infectious Disease History: No Infectious Disease History: Denies: Hx Hepatitis, Hx of Known/Suspected MRSA, Hx Shingles, Hx Tuberculosis, History Other Infectious Disease, Traveled Outside the [place] in Last 30 Days - Family History Known Family History: Positive: Other - Mother carrier of alport disease gene Negative: Blood Disorder - Social History Alcohol Use: None Alcohol Amount: Once per month before getting sick in February Hx Substance Use: No Substance Use Type: Reports: None Hx Tobacco Use: Yes Smoking Status (MU): Former Smoker Type: Cigarettes Amount Used/How Often: 1 PPD X 4 YEARS Have You Smoked in the Last Year: No Review of Systems Negative: Fever, Chills Positive: Photophobia. Negative: Erythema Negative: Sore Throat Positive: Chest Pain Positive: Shortness Of Breath, Cough Positive: Vomiting, Nausea, Other - water weight gain. Negative: Abdominal Pain Negative: dysuria, hematuria Positive: Other - back pain, bilateral LE pain. Negative: Edema Negative: Rash Neurological: Other - migraines, insomnia; negative dizziness, and lightheadedness. All Other Systems Reviewed And Are Negative: Yes Physical Exam - Summary Physical Exam Summary: Constitutional: Well-developed, Well-nourished, Alert. (-) Distressed Skin: Warm, Dry HENT: Normocephalic; Atraumatic Eyes: Conjunctiva normal Neck: Musculoskeletal ROM normal neck. (-) JVD, (-) Stridor, (-) Tracheal deviation Cardio: Rhythm regular, rate normal, Heart sounds normal; Intact distal pulses; The pedal pulses are 2+ and symmetric. Radial pulses are 2+ and symmetric. (-) Murmur Pulmonary/Chest wall: Effort normal. (-) Respiratory distress, (-) Wheezes, Rales in the bases Abd: Soft, (-) Tenderness, (-) Distension, (-) Guarding, (-) Rebound Musculoskeletal: (-) Edema Lymph: (-) Cervical adenopathy Neuro: Alert, Oriented x3 Psych: Mood and affect Normal Triage Information Reviewed: Yes Vital Signs On Initial Exam: Initial Vitals Temp Pulse Resp BP Pulse Ox 97.9 F 82 19 181/113 96 12/22/16 13:57 12/22/16 13:57 12/22/16 13:57 12/22/16 13:57 12/22/16 13:57 Vital Signs Reviewed: Yes - [place] Coma Scale Coma Scale Total: 15 Diagnostics - Vital Signs Vital Signs Temp Pulse Resp BP Pulse Ox 12/22/16 16:08 16 12/22/16 16:00 87 93 12/22/16 15:30 84 181/114 98 12/22/16 15:02 88 195/118 94 12/22/16 15:00 86 94 12/22/16 14:30 84 214/135 96 12/22/16 14:06 85 94 12/22/16 14:04 196/109 12/22/16 13:57 97.9 F 82 19 181/113 96 - Laboratory Lab Results: Lab Results 12/22/16 12/22/16 12/22/16 Range/Units 14:49 14:49 14:49 WBC 13.2 H (3.5-10.8) 10^3/ul RBC 4.69 (4.0-5.4) 10^6/ul Hgb 13.6 L (14.0-18.0) g/dl Hct 41 L (42-52) % MCV 88 (80-94) fL MCH 29 (27-31) pg MCHC 33 (31-36) g/dl RDW 19 H (10.5-15) % Plt Count 192 (150-450) 10^3/ul MPV 7 L (7.4-10.4) um3 Neut % (Auto) 85.7 H (38-83) % Lymph % (Auto) 6.0 L (25-47) % [place] % (Auto) 6.7 (1-9) % Eos % (Auto) 0.6 (0-6) % Baso % (Auto) 1.0 (0-2) % Absolute Neuts (auto) 11.3 H (1.5-7.7) 10^3/ul Absolute Lymphs (auto) 0.8 L (1.0-4.8) 10^3/ul Absolute Monos (auto) 0.9 H (0-0.8) 10^3/ul Absolute Eos (auto) 0.1 (0-0.6) 10^3/ul Absolute Basos (auto) 0.1 (0-0.2) 10^3/ul Absolute Nucleated RBC 0 10^3/ul Nucleated RBC % 0 INR (Anticoag Therapy) 0.92 (0.89-1.11) APTT 34.6 (26.0-36.3) seconds Sodium (133-145) mmol/L Potassium (3.5-5.0) mmol/L Chloride (101-111) mmol/L Carbon Dioxide (22-32) mmol/L Anion Gap (2-11) mmol/L BUN (6-24) mg/dL Creatinine (0.67-1.17) mg/dL Est GFR ( Amer) (>60) Est GFR (Non-Af Amer) (>60) BUN/Creatinine Ratio (8-20) Glucose (70-100) mg/dL Lactic Acid (0.5-2.0) mmol/L Calcium (8.6-10.3) mg/dL Magnesium (1.9-2.7) mg/dL Total Bilirubin (0.2-1.0) mg/dL AST (13-39) U/L ALT (7-52) U/L Alkaline Phosphatase (34-104) U/L Total Creatine Kinase (10-223) U/L CK-MB (CK-2) (0.6-6.3) ng/mL Myoglobin (17.4-105.7) ng/mL Troponin I (<0.04) ng/mL B-Natriuretic Peptide 4732 H ( - 100) pg/mL Total Protein (6.4-8.9) g/dL Albumin (3.2-5.2) g/dL Globulin (2-4) g/dL Albumin/Globulin Ratio (1-3) 12/22/16 12/22/16 Range/Units 14:49 14:49 WBC (3.5-10.8) 10^3/ul RBC (4.0-5.4) 10^6/ul Hgb (14.0-18.0) g/dl Hct (42-52) % MCV (80-94) fL MCH (27-31) pg MCHC (31-36) g/dl RDW (10.5-15) % Plt Count (150-450) 10^3/ul MPV (7.4-10.4) um3 Neut % (Auto) (38-83) % Lymph % (Auto) (25-47) % [place] % (Auto) (1-9) % Eos % (Auto) (0-6) % Baso % (Auto) (0-2) % Absolute Neuts (auto) (1.5-7.7) 10^3/ul Absolute Lymphs (auto) (1.0-4.8) 10^3/ul Absolute Monos (auto) (0-0.8) 10^3/ul Absolute Eos (auto) (0-0.6) 10^3/ul Absolute Basos (auto) (0-0.2) 10^3/ul Absolute Nucleated RBC 10^3/ul Nucleated RBC % INR (Anticoag Therapy) (0.89-1.11) APTT (26.0-36.3) seconds Sodium 133 (133-145) mmol/L Potassium 7.7 H* (3.5-5.0) mmol/L Chloride 93 L (101-111) mmol/L Carbon Dioxide 30 (22-32) mmol/L Anion Gap 10 (2-11) mmol/L BUN 70 H (6-24) mg/dL Creatinine 12.91 H (0.67-1.17) mg/dL Est GFR ( Amer) 5.9 (>60) Est GFR (Non-Af Amer) 4.6 (>60) BUN/Creatinine Ratio 5.4 L (8-20) Glucose 77 (70-100) mg/dL Lactic Acid 0.8 (0.5-2.0) mmol/L Calcium 10.3 (8.6-10.3) mg/dL Magnesium 2.7 (1.9-2.7) mg/dL Total Bilirubin 1.20 H (0.2-1.0) mg/dL AST 16 (13-39) U/L ALT 8 (7-52) U/L Alkaline Phosphatase 40 (34-104) U/L Total Creatine Kinase 81 (10-223) U/L CK-MB (CK-2) 2.6 (0.6-6.3) ng/mL Myoglobin 87.1 (17.4-105.7) ng/mL Troponin I 0.06 H* (<0.04) ng/mL B-Natriuretic Peptide ( - 100) pg/mL Total Protein 7.2 (6.4-8.9) g/dL Albumin 4.2 (3.2-5.2) g/dL Globulin 3.0 (2-4) g/dL Albumin/Globulin Ratio 1.4 (1-3) Result Diagrams: 12/23/16 05:25 12/23/16 05:25 Lab Statement: Any lab studies that have been ordered have been reviewed, and results considered in the medical decision making process. - Radiology CXR Radiology Interpretation Completed By: Radiologist - BILATERAL INTERSTITIAL AND ALVEOLAR INFILTRATES AND TRACE BILATERAL PLEURAL EFFUSIONS SUGGESTIVE OF PNEUMONIA AND/OR PULMONARY EDEMA. ED physician has reviewed this radiology report and agrees. - EKG 1438 Cardiac Rate: NL - BPM 86 EKG Rhythm: Sinus Rhythm EKG Interpretation: No STEMI Course/Dx - Course Assessment/Plan: This patient is a 31 year old M BIBA to [facility] accompanied by mother and female with a chief complaint of SOB since earlier today. He reports a possible fluid since his last Dialysis on Thursday and todays symptoms are similar to the last time his fluid overloaded. His dialysis two days ago went well and was fully completed. The patient rates the pain 5/10 in severity. Symptoms alleviated by nothing. Patient reports N/V, water weight gain, CP, migraines, back pain, bilateral LE pain, photophobia, insomnia, and coughing. Patient denies dizziness, and lightheadedness. An EKG reveals NSR. CXR reveals BILATERAL INTERSTITIAL AND ALVEOLAR INFILTRATES AND TRACE BILATERAL PLEURAL EFFUSIONS SUGGESTIVE OF PNEUMONIA AND/OR PULMONARY EDEMA. ED physician has reviewed this radiology report and agrees. Consulted Dr. Arana (salesforce consultant) who will send a dialysis nurse to the ED for emergent dialysis. Consulted Dr. Mcbride (hospitalist) who agrees to admit. Patient will be admitted with hospitalist follow up. The patient is agreeable with this plan. - Diagnoses Provider Diagnoses: Bilateral pulmonary infiltrates on chest x-ray, Volume overload - Physician Notifications Discussed Care of Patient With: Jose De Jesus Arana Time Discussed With Above Provider: 16:23 Instructed by Provider To: Other - Consulted Dr. Arana (salesforce consultant) who will send a dialysis nurse to the ED for emergent dialysis. Consulted Dr. Mcbride ( hospitalist) who agrees to admit. - Critical Care Time Critical Care Time: 75-104 min - 60 Discharge - Discharge Plan Condition: Fair Disposition: ADMITTED TO [facility] documentation as recorded by the Oscar florence Alfonso accurately reflects the service I personally performed and the decisions made by , Dex De La Rosa MD.
--- NOTE | 2016-12-24 08:21 | DS ---
CC: Dr. Frey; Dr. Arana; Dr. Mike * DISCHARGE SUMMARY: DATE OF ADMISSION: 12/22/16 DATE OF DISCHARGE: 12/23/16 PRIMARY CARE PROVIDER: Dr. Frey. DATABASE ENGINEER: Dr. Arana. NEUROLOGIST: Dr. Mike. DISCHARGE DIAGNOSES: 1. Acute pulmonary edema secondary to dietary noncompliance. 2. Acute hypoxemic respiratory failure secondary to the above. SECONDARY DIAGNOSES: 1. Alport syndrome. 2. End-stage renal disease with failed renal transplant, status post removal. The patient was on PD in the past and now is on hemodialysis. 3. Hypertension. 4. Anemia of renal disease. MEDICATION LIST: 1. Fiber 1 capsule 1 p.o. b.i.d. 2. Requip 0.5 mg p.o. b.i.d. 3. Amlodipine 5 mg p.o. daily. 4. Sevelamer 3200 mg p.o. with meals and snacks. 5. Nephro-Clement 1 tablet p.o. daily. 6. Omeprazole 20 mg p.o. daily. 7. Minoxidil 15 mg p.o. b.i.d. 8. Propranolol 80 mg p.o. t.i.d. New Medications: 1. Methadone 5 mg p.o. q.8 hours p.r.n. pain. 2. MDD 15 mg, dispensed 30, no refills. Discontinued medications: Zofran and tramadol were discontinued due to possible interactions with methadone, including QT prolongation. HOSPITAL COURSE: Mr. Sotelo is a 31-year-old male with a past medical history as stated above that went to his dialysis as usual on December 20. He states that on December 21, he drank a large amount of fluids, including fluids that he usually does not drink like orange juice and he also had some dietary indiscretion. Twenty four hours later, he started to have headache followed by shortness of breath, dry cough initially followed by frothy pink sputum. His dyspnea continued with orthopnea and the patient felt he had gained weight. So, he came to the emergency room for further evaluation. His chest x-ray was concerning for pulmonary edema. He was found to have a significantly elevated blood pressure with a systolic over 200s. For more details about his presentation, I refer you to his history and physical. The patient was also found to be hyperkalemic with a potassium of 7.7. Initial BNP was 4700. He was admitted to the intensive care unit and he was dialyzed with significant improvement of his symptoms. His potassium and blood pressure have normalized. He had significant improvement of his dyspnea and is now on room air, but he still has crackles on both bases. I discussed his case with his nail making machine tender, Dr. Arana, and his recommendation was for discharge, so the patient could have his scheduled hemodialysis as outpatient. The patient is aware that this episode happened due to his dietary noncompliance and he said he will be more careful in the future. Also of note, the patient has had a difficult time controlling his pain, especially his headaches. He states that tramadol is not helping and he is actually taking larger doses than prescribed. This was discussed with Dr. Arana and the recommendation was to discontinue tramadol and start the patient on methadone. Depending on his response, Dr. Arana, may adjust the medication as outpatient. Mr. Sotelo is medically stable for discharge today, and he will go from here to the dialysis unit, so he can receive his dialysis as scheduled. PHYSICAL EXAMINATION: Vital Signs: Temperature 99, heart rate 98, respiratory rate is 18, oxygen saturation 100% on room air, blood pressure is 146/80. General: The patient is a young male that appears older than stated age, sitting up in bed in no acute distress. CVS: Normal S1, S2. Regular rate and rhythm. Chest: Breath sounds present bilaterally with bibasilar crackles. Abdomen: Soft. Bowel sounds are present. Extremities: No edema. Neuro: He is alert and oriented x3. Able to move all 4 extremities. DIET: Renal diet. The patient received education about his diet and fluid restriction once again. ACTIVITY: As tolerated. DISPOSITION: To home. STATUS WHILE IN THE HOSPITAL: Observation. Please keep in mind, this is a summarized version of this patient's hospital stay. If you need more information, please feel free to call me at [phone] or please obtain the full medical records. TIME SPENT: Approximately 40 minutes was spent to complete the discharge. [id number] #: [id number] MTDD
== END 2016-12-23 10:51 | disposition home or self-care (01) | DRG 133 ==
LOC: ED 13:54 → ICU 16:30
PROVIDERS: ADMIT Emergency Medicine Emergency Medical Services; ATTEND Internal Medicine
PROC: 5A1D70Z Performance of Urinary Filtration, Intermittent, Less than 6 Hours Per Day (ICD-10-PCS; principal; 2016-12-22)
DX: J81.0 Acute pulmonary edema (principal); J96.01 Acute respiratory failure with hypoxia; N18.6 End stage renal disease; I12.0 Hypertensive chronic kidney disease with stage 5 chronic kidney disease or end stage renal disease; Q87.81 Alport syndrome; E87.5 Hyperkalemia; D63.1 Anemia in chronic kidney disease; Z91.11 Patient's noncompliance with dietary regimen; Z99.2 Dependence on renal dialysis; Z87.891 Personal history of nicotine dependence; Z98.85 Transplanted organ removal status; Z79.899 Other long term (current) drug therapy; Z88.5 Allergy status to narcotic agent; Z88.8 Allergy status to other drugs, medicaments and biological substances; Z82.49 Family history of ischemic heart disease and other diseases of the circulatory system; Z84.1 Family history of disorders of kidney and ureter
CPT/HCPCS: 36415; 71010; 80048; 80053; 82550; 82553; 83605; 83735; 83874; 83880; 84100; 84484; 85025; 85610; 85730; 87641; 90935; 93005; A9270-GY; G0257; J0360; J0610; J0885; J1170; J1644; J2270; J2405

== ENCOUNTER 2017-04-12 22:52 | Emergency (ER) | payer BC, MEDICARE ==
[2017-04-13] MEDS ORDERED: HYDROmorphone INJ* 2 MG/ML CARPUJECT SYRINGE IV SLOW PU ONE (01:59)
[2017-04-13] MEDS ORDERED: Metoclopramide IV* 5 MG/ML 2 ML VIAL IV SLOW PU ONE (02:00)
[2017-04-13] MEDS ORDERED: NS 0.9% 500 ML* 500 ML IV ONE (02:02)
[2017-04-13] MEDS ORDERED: diPHENhydraMINE IV* 50 MG/ML 1 ml VIAL (BENADRYL) IV ONE (02:02)
[2017-04-13] MEDS ORDERED: Lidocaine 2% JELLY* 6 ML JELLY TOPICAL ONE (04:10)
[2017-04-13] MEDS ORDERED: Dexamethasone IV* 4 MG/ML 1 ML (4 MG) IV SLOW PU ONE (05:19)
--- NOTE | 2017-04-13 05:42 | ED ---
Maeve Alejandro Edward, scribed for Leticia Coleman MD on 04/13/17 at 0135 . Headache - HPI Summary HPI Summary: 32 y/o male presents to the ED c/o severe TEIXEIRA for several days that became worse today, aggravated with bright lights. PMHx migraines, dialysis 3 times a week for the past 2 years. Associated sx: N/V aggravated with PO intake. Pt tried taking his meds this afternoon but threw it back up. Denies fever. - History Of Current Complaint Chief Complaint: EDHeadache Stated Complaint: N/V, HIGH BP Time Seen by Provider: 04/13/17 01:23 Hx Obtained From: Patient Onset/Duration: Started days ago Timing: Constant Aggravating Factor: Bright Lights Allevating Factors: Nothing Associated Signs And Symptoms: Nausea, Vomiting - Allergies/Home Medications Allergies/Adverse Reactions: Allergies Allergy/AdvReac Type Severity Reaction Status Date / Time MS Gabapentin [Gabapentin] Allergy Severe twitching/double Verified 12/22/16 14: 02 vision MS Aspirin [Aspirin] Allergy Unknown Verified 12/22/16 17:43 Reaction Details MS Hydrocodone [From Vicodin] AdvReac Intermediate TWITCHING Verified 12/22/16 14:02 PMH/Surg Hx/FS Hx/Imm Hx Previously Healthy: No Endocrine/Hematology History: Reports: Hx Anticoagulant Therapy, Hx Blood Transfusions - February 2016, Hx Anemia Denies: Hx Blood Disorders, Hx Bone Marrow Disease, Hx Diabetes, Hx Systemic Lupus Erythematosus, Hx Sickle Cell Disease, Hx Thyroid Disease, Hx Unexplained Bleeding, Other Endocrine/Hematological Disorders Cardiovascular History: Reports: Hx Congestive Heart Failure - Probable 09/18/16 , Hx Embolism - PE, Hx Hypertension - ON MEDICATION FOR, Other Cardiovascular Problems/Disorders - RT.KIDNEY TRANSPLANT FAILED AND REMOVED/DIALYSIS Denies: Hx Aneurysm, Hx Angina, Hx Angioplasty, Hx Auto Implanted Cardiovert Defib, Hx Cardiac Arrest, Hx Cardiomegaly, Hx Congenital Heart Disease, Hx Coronary Artery Disease, Hx Deep Vein Thrombosis, Hx Hypercholesterolemia, Hx Hypotension, Hx Pacemaker/ICD, Hx Peripheral Vascular Disease, Hx Rheumatic Fever, Hx Syncope, Hx Valvular Heart Disease Respiratory History: Reports: Hx Pulmonary Edema - Flash pulmonary edema resulting in CPR 09/02/16, Other Respiratory Problems/Disorders - "left lung repaired for pneumothorax in 2006 Denies: Hx Asthma, Hx Chronic Bronchitis, Hx Chronic Obstructive Pulmonary Disease (COPD), Hx Cystic Fibrosis, Hx Lung Cancer, Hx Pleural Effusion, Hx Pneumonia, Hx Pulmonary Embolism, Hx Seasonal Allergies, Hx Sleep Apnea GI History: Denies: Hx Cirrhosis, Hx Crohn's Disease, Hx Diverticulosis, Hx Gall Bladder Disease, Hx Gastroesophageal Reflux Disease, Hx Gastrointestinal Bleed, Hx Hiatal Hernia, Hx Irritable Bowel, Hx Jaundice, Hx Obstructive Bowel, Hx Ileostomy, Hx Pyloric Stenosis, Hx Ulcer, Other GI Disorders History: Reports: Hx Acute Renal Failure, Hx Chronic Renal Failure, Hx Dialysis, Hx Renal Disease - TRANSPLANT - RT, dialysis every Mon., Wed., Thu., Other Problems/Disorders - DIALYSIS- Denies: Hx Benign Prostatic Hyperplasia, Hx Kidney Infection, Hx Kidney Stones Musculoskeletal History: Reports: Hx Back Problems - chronic back pain Denies: Hx Arthritis, Hx Bursitis, Hx Congenital Bone Abnormalities, Hx Fibromyalgia, Hx Gout, Hx Orthopedic Injury, Hx Osteoporosis, Hx Scoliosis, Hx Tendonitis, Other Musculoskeletal History Sensory History: Reports: Hx Contacts or Glasses, Hx Deafness, Hx Hearing Problem - moderate hearing loss bilat ears, Other Sensory Impairments - Photophobia Denies: Hx Cataracts, Hx Eye Injury, Hx Eye Prosthesis, Hx Glaucoma, Hx Legally Blind, Hx Macular Degeneration, Hx Vision Problem, Hx Hearing Aid Opthamlomology History: Reports: Hx Contacts or Glasses, Other Sensory Impairments - Photophobia Denies: Hx Cataracts, Hx Eye Injury, Hx Eye Prosthesis, Hx Glaucoma, Hx Legally Blind, Hx Macular Degeneration, Hx Vision Problem Neurological History: Reports: Hx Headaches, Hx Migraine - 1-2 PER MONTH, Hx Seizures - September 2016, Other Neuro Impairments/Disorders - Restless leg syndrome Denies: Hx Dementia, Hx Developmental Delay, Hx Nerve Disease, Hx Spinal Cord Injury, Hx Transient Ischemic Attacks (TIA) Psychiatric History: Reports: Hx Anxiety - NEW-STATES MD IS AWARE, Hx Depression - NEW-STATES MD IS AWARE Denies: Hx Attention Deficit Hyperactivity Disorder, Hx Eating Disorder, Hx Panic Disorder, Hx Post Traumatic Stress Disorder, Hx Inpatient Treatment, Hx Community Mental Health Tx, Hx Schizophrenia, Hx Bipolar Disorder, Hx Suicide Attempt, Hx of Violent Episodes Against Others, Hx Substance Abuse, Other Psychiatric Issues/Disorders - Cancer History Hx Chemotherapy: No Hx Radiation Therapy: No Hx Palliative Cancer Treatment: No - Surgical History Surgery Procedure, Year, and Place: 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[place], [place]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; LEFT LUNG SX FOR REPAIR; LEFT ARM FISTULA FOR DIALISYS 2016, RIGHT CHEST WALL CATH FOR DIALYSIS; RIGHT NEPHRECTOMY - kidney rejected, 2016 Hx Anesthesia Reactions: No - Immunization History Date of Tetanus Vaccine: Unk Date of Influenza Vaccine: Fall 2014 Infectious Disease History: No Infectious Disease History: Denies: Hx Hepatitis, Hx of Known/Suspected MRSA, Hx Shingles, Hx Tuberculosis, History Other Infectious Disease, Traveled Outside the [place] in Last 30 Days - Family History Known Family History: Positive: None, Other - Mother carrier of alport disease gene Negative: Blood Disorder - Social History Alcohol Use: None Alcohol Amount: Once per month before getting sick in February Hx Substance Use: No Substance Use Type: Reports: None Hx Tobacco Use: Yes Smoking Status (MU): Former Smoker Type: Cigarettes Amount Used/How Often: 1 PPD X 4 YEARS Have You Smoked in the Last Year: No Review of Systems Constitutional: Negative Positive: Photophobia ENT: Negative Cardiovascular: Negative Respiratory: Negative Positive: Vomiting, Nausea Genitourinary: Negative Musculoskeletal: Negative Skin: Negative Positive: Headache Psychological: Normal All Other Systems Reviewed And Are Negative: Yes Physical Exam - Summary Physical Exam Summary: VITAL SIGNS: Reviewed. GENERAL: Patient is a well-developed and nourished male who is lying comfortable in the stretcher. Patient is not in any acute respiratory distress. HEAD AND FACE: No signs of trauma. No ecchymosis, hematomas or skull depressions. No sinus tenderness. EYES: PERRLA, EOMI x 2, No injected conjunctiva, no nystagmus. EARS: Hearing grossly intact. Ear canals and tympanic membranes are within normal limits. MOUTH: Oropharynx within normal limits. NECK: Supple, trachea is midline, no adenopathy, no JVD, no carotid bruit, no c- spine tenderness, neck with full ROM. CHEST: Symmetric, no tenderness at palpation LUNGS: Clear to auscultation bilaterally. No wheezing or crackles. CVS: Regular rate and rhythm, S1 and S2 present, no murmurs or gallops appreciated. ABDOMEN: Soft, non-tender. No signs of distention. No rebound no guarding, and no masses palpated. Bowel sounds are normal. EXTREMITIES: FROM in all major joints, no edema, no cyanosis or clubbing. Pt has an AV fistula with good thrill in his L upper arm NEURO: Alert and oriented x 3. No acute neurological deficits. Speech is normal and follows commands. SKIN: Dry and warm Triage Information Reviewed: Yes Vital Signs On Initial Exam: Initial Vitals Temp Pulse Resp BP Pulse Ox 97.1 F 67 16 199/125 95 04/12/17 23:06 04/12/17 23:06 04/12/17 23:06 04/12/17 23:06 04/12/17 23:06 Vital Signs Reviewed: Yes Diagnostics - Vital Signs Vital Signs Temp Pulse Resp BP Pulse Ox 04/13/17 01:11 72 98 04/13/17 01:08 173/113 04/12/17 23:06 97.1 F 67 16 199/125 95 - Laboratory Result Diagrams: 04/13/17 04:23 Lab Statement: Any lab studies that have been ordered have been reviewed, and results considered in the medical decision making process. - EKG 1 EKG Interpretation: SR @ 69 BPM. Normal axis, normal interval, no ST changes. Re-Evaluation - Re-Evaluation 1 Re-Evaluation Time: 05:15 Headache Course/Dx - Course Assessment/Plan: 32 y/o male presents to the ED c/o severe TEIXEIRA for several days. PMHx acute renal failure. EKG normal. Pt takes methadone at home states he gets TEIXEIRA every day. Pt given Reglan, dilaudid, benadryl in the ED , and TEIXEIRA improved. Pt will be treated w/ decadron. Pt will be d/c home. Pt has a 06:00 dialysis today. - Diagnoses Provider Diagnoses: Migraine headache Discharge - Discharge Plan Condition: Stable Disposition: HOME Patient Education Materials: Migraine Headache (ED) Referrals: Christa Frey MD [Primary Care Provider] - 4 Days (PLEASE F/U IN 3-5 DAYS ) Additional Instructions: RETURN TO THE ED FOR RETURN OR WORSENING OF SYMPTOMS The documentation as recorded by the Maeve florence Edward accurately reflects the service I personally performed and the decisions made by , Leticia Coleman MD.
[2017-04-13 05:51] VITALS: BP 178/108
== END 2017-04-13 05:52 | disposition home or self-care (01) ==
LOC: ED 22:52
DX: G43.909 Migraine, unspecified, not intractable, without status migrainosus (principal); R11.2 Nausea with vomiting, unspecified; H53.149 Visual discomfort, unspecified; Z79.01 Long term (current) use of anticoagulants; Z87.09 Personal history of other diseases of the respiratory system; Z87.891 Personal history of nicotine dependence
CPT/HCPCS: 36415; 84132; 93005; 96374; 96375; 99284; J1100; J1170; J1200; J2765

== ENCOUNTER 2017-04-27 22:06 | Emergency (ER) | payer BC ==
[2017-04-27 22:56] LABS: ABS Basophils 0.1 10^3/ul (0-0.2); ABS Eosinophils 0.2 10^3/ul (0-0.6); ABS Lymphocytes 1.3 10^3/ul (1.0-4.8); ABS Monocytes 0.3 10^3/ul (0-0.8); ABS Neutrophils 3.2 10^3/ul (1.5-7.7); ABS Nucleated RBC 0 10^3/ul; Eosinophil % 4.5 % (0-6); Hematocrit 33 % (42-52); Lymphocyte % 24.7 % (25-47); Mean Corpuscular HGB Conc 34 g/dl (31-36); Mean Corpuscular Hemoglobin 31 pg (27-31); Mean Corpuscular Volume 92 fL (80-94); Mean Platelet Volume 8 um3 (7.4-10.4); Nucleated Red Blood Cells % 0.2; Platelet Count 226 10^3/ul (150-450); Red Blood Count 3.58 10^6/ul (4.0-5.4); Red Cell Distribution Width 14 % (10.5-15); White Blood Count 5.2 10^3/ul (3.5-10.8)
[2017-04-27] MEDS ORDERED: Metoclopramide IV* 5 MG/ML 2 ML VIAL IV ONE (22:58)
[2017-04-27] MEDS ORDERED: diPHENhydraMINE IV* 50 MG/ML 1 ml VIAL (BENADRYL) IV ONE (22:58)
[2017-04-27] MEDS ORDERED: HYDROmorphone INJ* 2 MG/ML CARPUJECT SYRINGE IV SLOW PU ONE (22:59)
[2017-04-27] MEDS ORDERED: VERAPAMIL 2.5 MG/ML 2 ML VIAL ** 5 mg/2 ml IV PUSH ONE (22:59)
[2017-04-27 23:09] LABS: EGFR Non-African American 5.6 (>60)
[2017-04-27 23:54] VITALS: BP 166/108
--- NOTE | 2017-04-28 06:05 | ED ---
Dory Alejandro Julia, scribed for Raudel Royal MD on 04/28/17 at 0048 . Complex/Multi-Sys Presentation - HPI Summary HPI Summary: This patient is a 32 year old M presenting to [facility] accompanied by his sister due to severe hypertension since this morning. Patient reports SOB, nausea, vomiting, and diffuse headache. The patient rates the pain 8/10 in severity. Symptoms aggravated by light and sound. Patients dialysis was stopped due to bleeding this morning. He reports his normal blood pressure is around 130/60. Patient has a history of chronic migraines and Alport syndrome. Patient is seen by Dr. Arana. - History Of Current Complaint Chief Complaint: EDHypertension Time Seen by Provider: 04/27/17 22:52 Hx Obtained From: Patient Onset/Duration: Lasting Hours Timing: Constant Location: Pain At: - headache Character: Migraine - diffuse Aggravating Factor(s): light and sound Associated Signs And Symptoms: Positive: SOB, Nausea, Vomiting, Other - hypertension - Allergies/Home Medications Allergies/Adverse Reactions: Allergies Allergy/AdvReac Type Severity Reaction Status Date / Time aspirin Allergy Unknown Verified 04/27/17 22:13 Reaction Details gabapentin Allergy twitching, Verified 04/27/17 22:13 double vision hydrocodone Allergy twitching Verified 04/27/17 22:13 PMH/Surg Hx/FS Hx/Imm Hx Endocrine/Hematology History: Reports: Hx Anticoagulant Therapy, Hx Blood Transfusions - February 2016, Hx Anemia Denies: Hx Blood Disorders, Hx Bone Marrow Disease, Hx Diabetes, Hx Systemic Lupus Erythematosus, Hx Sickle Cell Disease, Hx Thyroid Disease, Hx Unexplained Bleeding, Other Endocrine/Hematological Disorders Cardiovascular History: Reports: Hx Congestive Heart Failure - Probable 09/18/16 , Hx Embolism - PE, Hx Hypertension - ON MEDICATION FOR, Other Cardiovascular Problems/Disorders - RT.KIDNEY TRANSPLANT FAILED AND REMOVED/DIALYSIS Denies: Hx Aneurysm, Hx Angina, Hx Angioplasty, Hx Auto Implanted Cardiovert Defib, Hx Cardiac Arrest, Hx Cardiomegaly, Hx Congenital Heart Disease, Hx Coronary Artery Disease, Hx Deep Vein Thrombosis, Hx Hypercholesterolemia, Hx Hypotension, Hx Pacemaker/ICD, Hx Peripheral Vascular Disease, Hx Rheumatic Fever, Hx Syncope, Hx Valvular Heart Disease Respiratory History: Reports: Hx Pulmonary Edema - Flash pulmonary edema resulting in CPR 09/02/16, Other Respiratory Problems/Disorders - "left lung repaired for pneumothorax in 2006 Denies: Hx Asthma, Hx Chronic Bronchitis, Hx Chronic Obstructive Pulmonary Disease (COPD), Hx Cystic Fibrosis, Hx Lung Cancer, Hx Pleural Effusion, Hx Pneumonia, Hx Pulmonary Embolism, Hx Seasonal Allergies, Hx Sleep Apnea GI History: Denies: Hx Cirrhosis, Hx Crohn's Disease, Hx Diverticulosis, Hx Gall Bladder Disease, Hx Gastroesophageal Reflux Disease, Hx Gastrointestinal Bleed, Hx Hiatal Hernia, Hx Irritable Bowel, Hx Jaundice, Hx Obstructive Bowel, Hx Ileostomy, Hx Pyloric Stenosis, Hx Ulcer, Other GI Disorders History: Reports: Hx Acute Renal Failure, Hx Chronic Renal Failure, Hx Dialysis, Hx Renal Disease - TRANSPLANT - RT, dialysis every Mon., Wed., Thu., Other Problems/Disorders - DIALYSIS- Denies: Hx Benign Prostatic Hyperplasia, Hx Kidney Infection, Hx Kidney Stones Musculoskeletal History: Reports: Hx Back Problems - chronic back pain Denies: Hx Arthritis, Hx Bursitis, Hx Congenital Bone Abnormalities, Hx Fibromyalgia, Hx Gout, Hx Orthopedic Injury, Hx Osteoporosis, Hx Scoliosis, Hx Tendonitis, Other Musculoskeletal History Sensory History: Reports: Hx Contacts or Glasses, Hx Deafness, Hx Hearing Problem - moderate hearing loss bilat ears, Other Sensory Impairments - Photophobia Denies: Hx Cataracts, Hx Eye Injury, Hx Eye Prosthesis, Hx Glaucoma, Hx Legally Blind, Hx Macular Degeneration, Hx Vision Problem, Hx Hearing Aid Opthamlomology History: Reports: Hx Contacts or Glasses, Other Sensory Impairments - Photophobia Denies: Hx Cataracts, Hx Eye Injury, Hx Eye Prosthesis, Hx Glaucoma, Hx Legally Blind, Hx Macular Degeneration, Hx Vision Problem Neurological History: Reports: Hx Headaches, Hx Migraine - 1-2 PER MONTH, Hx Seizures - September 2016, Other Neuro Impairments/Disorders - Restless leg syndrome Denies: Hx Dementia, Hx Developmental Delay, Hx Nerve Disease, Hx Spinal Cord Injury, Hx Transient Ischemic Attacks (TIA) Psychiatric History: Reports: Hx Anxiety - NEW-STATES MD IS AWARE, Hx Depression - NEW-STATES MD IS AWARE Denies: Hx Attention Deficit Hyperactivity Disorder, Hx Eating Disorder, Hx Panic Disorder, Hx Post Traumatic Stress Disorder, Hx Inpatient Treatment, Hx Community Mental Health Tx, Hx Schizophrenia, Hx Bipolar Disorder, Hx Suicide Attempt, Hx of Violent Episodes Against Others, Hx Substance Abuse, Other Psychiatric Issues/Disorders - Cancer History Hx Chemotherapy: No Hx Radiation Therapy: No Hx Palliative Cancer Treatment: No - Surgical History Surgery Procedure, Year, and Place: 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[place], [place]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; LEFT LUNG SX FOR REPAIR; LEFT ARM FISTULA FOR DIALISYS 2015, RIGHT CHEST WALL CATH FOR DIALYSIS; RIGHT NEPHRECTOMY - kidney rejected, 2016 Hx Anesthesia Reactions: No - Immunization History Date of Tetanus Vaccine: Unk Date of Influenza Vaccine: Fall 2014 Infectious Disease History: No Infectious Disease History: Denies: Hx Hepatitis, Hx of Known/Suspected MRSA, Hx Shingles, Hx Tuberculosis, History Other Infectious Disease, Traveled Outside the [place] in Last 30 Days - Family History Known Family History: Positive: Other - Mother carrier of alport disease gene Negative: Blood Disorder - Social History Alcohol Use: None Alcohol Amount: Once per month before getting sick in February Hx Substance Use: No Substance Use Type: Reports: None Hx Tobacco Use: Yes Smoking Status (MU): Former Smoker Type: Cigarettes Amount Used/How Often: 1 PPD X 4 YEARS Have You Smoked in the Last Year: No Review of Systems Positive: Photophobia Positive: Other - sound sensitive Positive: Shortness Of Breath Positive: Vomiting, Nausea Positive: Headache All Other Systems Reviewed And Are Negative: Yes Physical Exam - Summary Physical Exam Summary: Appearance: Well appearing, mild distress Skin: warm, dry, reflects adequate perfusion Head/face: normal no temporal artery tenderness Eyes: EOMI, MELODY ENT: normal Neck: supple, non-tender Respiratory: CTA, breath sounds present Cardiovascular: RRR, pulses symmetrical , grade 5 systolic mumur Abdomen: non-tender, soft Bowel: present Musculoskeletal: strength/ROM intact, fistula RUE Neuro: normal, sensory motor intact, A&Ox3 Triage Information Reviewed: Yes Vital Signs On Initial Exam: Initial Vitals Temp Pulse Resp BP Pulse Ox 98.1 F 74 16 195/128 97 04/27/17 22:08 04/27/17 22:08 04/27/17 22:08 04/27/17 22:08 04/27/17 22:08 Vital Signs Reviewed: Yes Diagnostics - Vital Signs Vital Signs Temp Pulse Resp BP Pulse Ox 04/27/17 23:53 69 16 166/108 95 04/27/17 23:35 75 16 173/113 95 04/27/17 23:23 16 04/27/17 22:08 98.1 F 74 16 195/128 97 - Laboratory Lab Results: Lab Results 04/27/17 04/27/17 Range/Units 22:44 22:44 WBC 5.2 (3.5-10.8) 10^3/ul RBC 3.58 L (4.0-5.4) 10^6/ul Hgb 11.0 L (14.0-18.0) g/dl Hct 33 L (42-52) % MCV 92 (80-94) fL MCH 31 (27-31) pg MCHC 34 (31-36) g/dl RDW 14 (10.5-15) % Plt Count 226 (150-450) 10^3/ul MPV 8 (7.4-10.4) um3 Neut % (Auto) 61.4 (38-83) % Lymph % (Auto) 24.7 L (25-47) % Florence % (Auto) 6.6 (1-9) % Eos % (Auto) 4.5 (0-6) % Baso % (Auto) 2.8 H (0-2) % Absolute Neuts (auto) 3.2 (1.5-7.7) 10^3/ul Absolute Lymphs (auto) 1.3 (1.0-4.8) 10^3/ul Absolute Monos (auto) 0.3 (0-0.8) 10^3/ul Absolute Eos (auto) 0.2 (0-0.6) 10^3/ul Absolute Basos (auto) 0.1 (0-0.2) 10^3/ul Absolute Nucleated RBC 0 10^3/ul Nucleated RBC % 0.2 Sodium 136 (133-145) mmol/L Potassium 4.2 (3.5-5.0) mmol/L Chloride 94 L (101-111) mmol/L Carbon Dioxide 30 (22-32) mmol/L Anion Gap 12 H (2-11) mmol/L BUN 43 H (6-24) mg/dL Creatinine 10.82 H (0.67-1.17) mg/dL Est GFR ( Amer) 7.2 (>60) Est GFR (Non-Af Amer) 5.6 (>60) BUN/Creatinine Ratio 4.0 L (8-20) Glucose 78 (70-100) mg/dL Calcium 10.2 (8.6-10.3) mg/dL Result Diagrams: 04/27/17 22:44 04/27/17 22:44 Lab Statement: Any lab studies that have been ordered have been reviewed, and results considered in the medical decision making process. - EKG 2216 Cardiac Rate: NL - at 68 BPM EKG Rhythm: Sinus Rhythm ST Segment: Normal EKG Interpretation: nml axis, LVH criteria, no peaked T waves Re-Evaluation - Re-Evaluation 1 Re-Evaluation Time: 00:11 Change: Improved - Pt is feeling better. His blood pressure is down to 150/80 Complex Multi-Symp Course/Dx Course Of Treatment: Pt with hx of Alport with resulting ESRD on dialysis also severe headache syndrome. Missed Botox yesterday and came off dialysis early. BP up. Tx teixeira and BP with near total resolution. BP normalized. Has appt for the Botox and dialysis in the morning. Otherwise tx symptomatically with promethazine outpt for TEIXEIRA. - Diagnoses Provider Diagnoses: Chronic migraine, Hypertensive emergency, End stage renal disease on dialysis, Alport syndrome Discharge - Discharge Plan Condition: Good Disposition: HOME Prescriptions: Promethazine TAB* [Phenergan Tab*] 25 mg PO Q6H PRN #30 tab PRN Reason: headache/nausea Patient Education Materials: Migraine Headache (ED) Referrals: Christa Frey MD [Primary Care Provider] - Additional Instructions: Go to appt with neurologist for Botox therapy as scheduled today. Get your dialysis as scheduled today. Return if worse, new symptoms or other concerns. The documentation as recorded by the Dory florence Julia accurately reflects the service I personally performed and the decisions made by , Raudel Royal MD.
== END 2017-04-28 00:28 | disposition home or self-care (01) ==
LOC: ED 22:06
DX: G43.909 Migraine, unspecified, not intractable, without status migrainosus (principal); I16.1 Hypertensive emergency; N18.6 End stage renal disease; Q87.81 Alport syndrome; Z99.2 Dependence on renal dialysis; R06.02 Shortness of breath; R11.2 Nausea with vomiting, unspecified; Z79.01 Long term (current) use of anticoagulants; Z86.79 Personal history of other diseases of the circulatory system; Z87.891 Personal history of nicotine dependence; Z94.0 Kidney transplant status
CPT/HCPCS: 36415; 80048; 85025; 93005; 96374; 96375; 99284; J1170; J1200; J2765

== ENCOUNTER 2017-05-18 10:49 | Emergency (ER) | payer BC ==
[2017-05-18] MEDS ORDERED: diPHENhydraMINE IV* 50 MG/ML 1 ml VIAL (BENADRYL) IV ONE (11:16)
[2017-05-18] MEDS ORDERED: Metoclopramide IV* 5 MG/ML 2 ML VIAL IV ONE (11:16)
[2017-05-18] MEDS ORDERED: Labetalol IV* 5 MG/ML 20 ML VIAL IV PUSH ONE (11:16)
[2017-05-18] MEDS ORDERED: fentaNYL* 50 MCG/ML 2 ML VIAL (100 MCG VIAL) IV ONE (11:16)
[2017-05-18 11:34] LABS: ABS Basophils 0.2 10^3/ul (0-0.2); ABS Eosinophils 0.2 10^3/ul (0-0.6); ABS Lymphocytes 0.8 10^3/ul (1.0-4.8); ABS Monocytes 0.4 10^3/ul (0-0.8); ABS Nucleated RBC 0 10^3/ul; Eosinophil % 2.9 % (0-6); Hematocrit 40 % (42-52); Hemoglobin 13.4 g/dl (14.0-18.0); Lymphocyte % 12.7 % (25-47); Mean Corpuscular HGB Conc 33 g/dl (31-36); Mean Corpuscular Hemoglobin 30 pg (27-31); Mean Corpuscular Volume 90 fL (80-94); Mean Platelet Volume 9 um3 (7.4-10.4); Nucleated Red Blood Cells % 0; Platelet Count 219 10^3/ul (150-450); Red Blood Count 4.46 10^6/ul (4.0-5.4); Red Cell Distribution Width 14 % (10.5-15); White Blood Count 6.6 10^3/ul (3.5-10.8)
[2017-05-18 11:54] LABS: EGFR Non-African American 11.4 (>60)
[2017-05-18 12:47] VITALS: BP 154/94
--- NOTE | 2017-05-20 08:16 | ED ---
Griffin Alejandro Angela, scribed for Jorge Melendez MD on 05/18/17 at 1118 . Headache - HPI Summary HPI Summary: This pt is a 32 y/o male presenting to [facility] c/o migraine headache and vomiting today s/p dialysis. Pt was at dialysis today and began to develop a headache and vomiting during dialysis. Additionally pt began to feel SOB and his blood pressure increased. He states he finished dialysis. Pt rates his headache 8/10 in severity and is described as diffused headache. Pt has hx of migraines and gets botox injections with neurologist here at [facility]. PMHx includes migraine, chronic renal failure, HTN. - History Of Current Complaint Chief Complaint: EDHeadache Stated Complaint: N/V/D-FROM DIALYSIS Time Seen by Provider: 05/18/17 11:07 Hx Obtained From: Patient Onset/Duration: Sudden Onset, Still Present Currently Pain Is: Current Pain Scale(0-10)= - 8 Timing: Constant Character: Migraine Location of Headache: Diffuse Aggravating Factor: Nothing Allevating Factors: Nothing Associated Signs And Symptoms: Nausea, Vomiting, Other (Noted In Comments) - elevated blood pressure, SOB - Allergies/Home Medications Allergies/Adverse Reactions: Allergies Allergy/AdvReac Type Severity Reaction Status Date / Time aspirin Allergy Unknown Verified 04/28/17 09:10 Reaction Details gabapentin Allergy twitching, Verified 04/28/17 09:10 double vision hydrocodone Allergy twitching Verified 04/28/17 09:10 Home Medications: Home Medications Divalproex ER TAB(*) [Depakote ER TAB(*)] 1,000 mg PO QAM 05/18/17 [History Confirmed 05/18/17] Divalproex ER TAB(*) [Depakote ER TAB(*)] 1,500 mg PO QPM 05/18/17 [History Confirmed 05/18/17] Methadone TAB* [Dolophine TAB*] 5 mg PO Q12H PRN MDD 10mg 05/18/17 [History Confirmed 05/18/17] Ondansetron ODT TAB* [Zofran 4 MG Odt TAB*] 4 mg PO Q6H PRN 05/18/17 [History Confirmed 05/18/17] Patiromer Calcium Sorbitex [Veltassa] 8.4 gm PO . DIRECTED 05/18/17 [History Confirmed 05/18/17] Senna TAB* [Senokot TAB*] 1 tab PO DAILY PRN 05/18/17 [History Confirmed ] Sevelamer TAB* [Renvela TAB*] 1,600 mg PO .WITH SNACKS 05/18/17 [History Confirmed 05/18/17] Sodium Polystyrene ORAL.KARI* [Kayexalate ORAL.KARI*] 15 gm PO . DIRECTED [History Confirmed 05/18/17] Verapamil HCl [Verapamil HCl Sr] 240 mg PO DAILY 05/18/17 [History Confirmed 02/23] PMH/Surg Hx/FS Hx/Imm Hx Endocrine/Hematology History: Reports: Hx Anticoagulant Therapy, Hx Blood Transfusions - February 2016, Hx Anemia Denies: Hx Blood Disorders, Hx Bone Marrow Disease, Hx Diabetes, Hx Systemic Lupus Erythematosus, Hx Sickle Cell Disease, Hx Thyroid Disease, Hx Unexplained Bleeding, Other Endocrine/Hematological Disorders Cardiovascular History: Reports: Hx Congestive Heart Failure - Probable 09/18/16 , Hx Embolism - PE, Hx Hypertension - ON MEDICATION FOR, Other Cardiovascular Problems/Disorders - RT.KIDNEY TRANSPLANT FAILED AND REMOVED/DIALYSIS Denies: Hx Aneurysm, Hx Angina, Hx Angioplasty, Hx Auto Implanted Cardiovert Defib, Hx Cardiac Arrest, Hx Cardiomegaly, Hx Congenital Heart Disease, Hx Coronary Artery Disease, Hx Deep Vein Thrombosis, Hx Hypercholesterolemia, Hx Hypotension, Hx Pacemaker/ICD, Hx Peripheral Vascular Disease, Hx Rheumatic Fever, Hx Syncope, Hx Valvular Heart Disease Respiratory History: Reports: Hx Pulmonary Edema - Flash pulmonary edema resulting in CPR 09/02/16, Other Respiratory Problems/Disorders - "left lung repaired for pneumothorax in 2006 Denies: Hx Asthma, Hx Chronic Bronchitis, Hx Chronic Obstructive Pulmonary Disease (COPD), Hx Cystic Fibrosis, Hx Lung Cancer, Hx Pleural Effusion, Hx Pneumonia, Hx Pulmonary Embolism, Hx Seasonal Allergies, Hx Sleep Apnea GI History: Denies: Hx Cirrhosis, Hx Crohn's Disease, Hx Diverticulosis, Hx Gall Bladder Disease, Hx Gastroesophageal Reflux Disease, Hx Gastrointestinal Bleed, Hx Hiatal Hernia, Hx Irritable Bowel, Hx Jaundice, Hx Obstructive Bowel, Hx Ileostomy, Hx Pyloric Stenosis, Hx Ulcer, Other GI Disorders History: Reports: Hx Acute Renal Failure, Hx Chronic Renal Failure, Hx Dialysis, Hx Renal Disease - TRANSPLANT - RT, dialysis every Mon., Wed., Fri., Other Problems/Disorders - DIALYSIS Denies: Hx Benign Prostatic Hyperplasia, Hx Kidney Infection, Hx Kidney Stones Musculoskeletal History: Reports: Hx Back Problems - chronic back pain Denies: Hx Arthritis, Hx Bursitis, Hx Congenital Bone Abnormalities, Hx Fibromyalgia, Hx Gout, Hx Orthopedic Injury, Hx Osteoporosis, Hx Scoliosis, Hx Tendonitis, Other Musculoskeletal History Sensory History: Reports: Hx Contacts or Glasses, Hx Deafness, Hx Hearing Problem - moderate hearing loss bilat ears, Other Sensory Impairments - Photophobia Denies: Hx Cataracts, Hx Eye Injury, Hx Eye Prosthesis, Hx Glaucoma, Hx Legally Blind, Hx Macular Degeneration, Hx Vision Problem, Hx Hearing Aid Opthamlomology History: Reports: Hx Contacts or Glasses, Other Sensory Impairments - Photophobia Denies: Hx Cataracts, Hx Eye Injury, Hx Eye Prosthesis, Hx Glaucoma, Hx Legally Blind, Hx Macular Degeneration, Hx Vision Problem Neurological History: Reports: Hx Headaches, Hx Migraine - 1-2 PER MONTH, Hx Seizures - September 2016, Other Neuro Impairments/Disorders - Restless leg syndrome Denies: Hx Dementia, Hx Developmental Delay, Hx Nerve Disease, Hx Spinal Cord Injury, Hx Transient Ischemic Attacks (TIA) Psychiatric History: Reports: Hx Anxiety - NEW-STATES MD IS AWARE, Hx Depression - NEW-STATES MD IS AWARE Denies: Hx Attention Deficit Hyperactivity Disorder, Hx Eating Disorder, Hx Panic Disorder, Hx Post Traumatic Stress Disorder, Hx Inpatient Treatment, Hx Community Mental Health Tx, Hx Schizophrenia, Hx Bipolar Disorder, Hx Suicide Attempt, Hx of Violent Episodes Against Others, Hx Substance Abuse, Other Psychiatric Issues/Disorders - Cancer History Hx Chemotherapy: No Hx Radiation Therapy: No Hx Palliative Cancer Treatment: No - Surgical History Surgery Procedure, Year, and Place: 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[place], [place]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; LEFT LUNG SX FOR REPAIR; LEFT ARM FISTULA FOR DIALISYS 2016, RIGHT CHEST WALL CATH FOR DIALYSIS; RIGHT NEPHRECTOMY - kidney rejected, 2016 Hx Anesthesia Reactions: No - Immunization History Date of Tetanus Vaccine: Unk Date of Influenza Vaccine: Fall 2014 Infectious Disease History: No Infectious Disease History: Denies: Hx Hepatitis, Hx of Known/Suspected MRSA, Hx Shingles, Hx Tuberculosis, History Other Infectious Disease, Traveled Outside the [place] in Last 30 Days - Family History Known Family History: Positive: Other - Mother carrier of alport disease gene Negative: Blood Disorder - Social History Alcohol Use: None Alcohol Amount: Once per month before getting sick in February Hx Substance Use: No Substance Use Type: Reports: None Hx Tobacco Use: Yes Smoking Status (MU): Former Smoker Type: Cigarettes Amount Used/How Often: 1 PPD X 4 YEARS Have You Smoked in the Last Year: No Review of Systems Negative: Fever, Chills Positive: Vomiting, Nausea Positive: Headache All Other Systems Reviewed And Are Negative: Yes Physical Exam - Summary Physical Exam Summary: VITAL SIGNS: Reviewed. GENERAL: Patient is a well-developed and nourished male. Pt is in some distress secondary to headache. HEAD AND FACE: No signs of trauma. No ecchymosis, hematomas or skull depressions. No sinus tenderness. EYES: PERRLA, EOMI x 2, No injected conjunctiva, no nystagmus. EARS: Hearing grossly intact. Ear canals and tympanic membranes are within normal limits. MOUTH: Oropharynx within normal limits. NECK: Supple, trachea is midline, no adenopathy, no JVD, no carotid bruit, no c- spine tenderness, neck with full ROM. CHEST: Symmetric, no tenderness at palpation LUNGS: Clear to auscultation bilaterally. No wheezing or crackles. CVS: Regular rate and rhythm, S1 and S2 present, no murmurs or gallops appreciated. ABDOMEN: Soft, non-tender. No signs of distention. No rebound no guarding, and no masses palpated. Bowel sounds are normal. EXTREMITIES: FROM in all major joints, no edema, no cyanosis or clubbing. There is a fistula on the left. NEURO: Alert and oriented x 3. No acute neurological deficits. Speech is normal and follows commands. SKIN: Dry and warm Triage Information Reviewed: Yes Vital Signs On Initial Exam: Initial Vitals Temp Pulse Resp BP Pulse Ox 97.9 F 66 18 203/128 98 05/18/17 10:52 05/18/17 10:52 05/18/17 10:52 05/18/17 10:52 05/18/17 10:52 Vital Signs Reviewed: Yes Diagnostics - Vital Signs Vital Signs Temp Pulse Resp BP Pulse Ox 05/18/17 10:52 97.9 F 66 18 203/128 98 - Laboratory Result Diagrams: 05/18/17 11:21 05/18/17 11:21 Lab Statement: Any lab studies that have been ordered have been reviewed, and results considered in the medical decision making process. Re-Evaluation - Re-Evaluation First Eval Re-Evaluation Time: 12:37 Comment: Blood pressure has improved. Headache Course/Dx - Course Assessment/Plan: This pt is a 32 y/o male presenting to [facility] [place]/o migraine headache and vomiting today s/p dialysis. Pt was at dialysis today and began to develop a headache and vomiting during dialysis. Additionally pt began to feel SOB and his blood pressure increased. He states he finished dialysis. Pt rates his headache 8/10 in severity and is described as diffused headache. Pt has hx of migraines and gets botox injections with neurologist here at [facility]. PMHx includes migraine, chronic renal failure, HTN. Test results without any significant abnormalities except for ESR of 16, creatinine of 5.85, total bilirubin of 1.70. In the ED course the pt was given Benadryl, Reglan, Fentanyl , and Labetalol. Pt reports he is feeling better after these medications, and his headache has improved. Blood pressure upon arrival to the ED is 203/128, after labetalol blood pressure decreased to 154/94. He denies any other complaints. Therefore, the pt will be discharged to home with follow up from his PCP. He is instructed to return to the ED for any worsening or new symptoms. Pt is hemodynamically stable, alert and oriented x3. - Diagnoses Provider Diagnoses: Migraine headache, Uncontrolled hypertension Discharge - Discharge Plan Condition: Stable Disposition: HOME Patient Education Materials: Migraine Headache (ED), Hypertension (ED) Referrals: Christa Frey MD [Primary Care Provider] - 3 Days Additional Instructions: Please follow up with your primary care provider. RETURN TO THE ED FOR ANY WORSENING SYMPTOMS. The documentation as recorded by the Griffin florence Angela accurately reflects the service I personally performed and the decisions made by me, Jorge Melendez MD.
== END 2017-05-18 12:49 | disposition home or self-care (01) ==
LOC: ED 10:49
DX: G43.909 Migraine, unspecified, not intractable, without status migrainosus (principal); I10 Essential (primary) hypertension; R11.2 Nausea with vomiting, unspecified; Z87.891 Personal history of nicotine dependence
CPT/HCPCS: 36415; 80053; 82375; 85025; 85652; 96374; 96375; 99282; J1200; J2765; J3010

== ENCOUNTER 2017-05-20 22:40 | Emergency (ER) | payer BC ==
[2017-05-20] MEDS ORDERED: Labetalol IV* 5 MG/ML 20 ML VIAL IV PUSH ONE (23:18)
[2017-05-20] MEDS ORDERED: Metoclopramide IV* 5 MG/ML 2 ML VIAL IV SLOW PU ONE (23:19)
[2017-05-20] MEDS ORDERED: diPHENhydraMINE IV* 50 MG/ML 1 ml VIAL (BENADRYL) IV ONE (23:19)
[2017-05-20] MEDS ORDERED: fentaNYL* 50 MCG/ML 2 ML VIAL (100 MCG VIAL) IV SLOW PU ONE (23:20)
[2017-05-21 00:20] LABS: ABS Basophils 0.2 10^3/ul (0-0.2); ABS Eosinophils 0.2 10^3/ul (0-0.6); ABS Lymphocytes 1.8 10^3/ul (1.0-4.8); ABS Monocytes 0.6 10^3/ul (0-0.8); ABS Neutrophils 4.7 10^3/ul (1.5-7.7); ABS Nucleated RBC 0 10^3/ul; Eosinophil % 2.7 % (0-6); Hematocrit 39 % (42-52); Hemoglobin 12.9 g/dl (14.0-18.0); Lymphocyte % 24.5 % (25-47); Mean Corpuscular HGB Conc 33 g/dl (31-36); Mean Corpuscular Hemoglobin 30 pg (27-31); Mean Corpuscular Volume 91 fL (80-94); Mean Platelet Volume 9 um3 (7.4-10.4); Nucleated Red Blood Cells % 0; Platelet Count 235 10^3/ul (150-450); Red Blood Count 4.28 10^6/ul (4.0-5.4); Red Cell Distribution Width 14 % (10.5-15); White Blood Count 7.5 10^3/ul (3.5-10.8)
[2017-05-21 00:27] LABS: EGFR Non-African American 7.3 (>60)
[2017-05-21] MEDS ORDERED: Calcium Gluconate INJ* 1 GM in NS 0.9% 100 ML* 100 ML IVPB ONE (01:02)
[2017-05-21] MEDS ORDERED: Sodium Bicarbonate 8.4%* 50 ML SYRINGE IV ONE (01:02)
[2017-05-21] MEDS ORDERED: Dextrose 50% VIAL 50 ml IV ONE (01:03)
[2017-05-21] MEDS ORDERED: Insulin REGULAR(*) 1 UNITS UNIT IV PUSH ONE (01:04)
[2017-05-21] MEDS ORDERED: Sodium Polystyrene ORAL.SOL* 15 GM/60 ML BTL PO ONE (01:04)
[2017-05-21] MEDS ORDERED: Labetalol IV* 5 MG/ML 20 ML VIAL IV PUSH ONE (01:13)
[2017-05-21] MEDS: Dextrose 50% Syringe 50 ML* 25 GM/50 ML SYRINGE IV PUSH ONE ×2 (01:48→04:03)
[2017-05-21] MEDS ORDERED: fentaNYL* 50 MCG/ML 2 ML VIAL (100 MCG VIAL) ONE (02:13)
[2017-05-21 03:58] VITALS: BP 175/117
--- NOTE | 2017-05-21 04:18 | ED ---
Gregoria Alejandro Abhishek, scribed for Leticia Coleman MD on 05/21/17 at 0353 . Hypertension - HPI Summary HPI Summary: The pt is a 32 y/o male with a chief complaint of hypertension since earlier today (05/20/17). The pt reports that he previously saw Dr. Arana and was recommended to take double the dosage of his methadone prescription (.5 mg). Pt reports of nausea, and TEIXEIRA. The patient rates the pain 10/10 in severity. Symptoms aggravated by nothing. Symptoms alleviated by nothing. He presented similar symptoms 2 days prior in the [facility] Pertinent PMHx is alport syndrome ( pt is on hemodialysis). - History of Current Complaint Chief Complaint: EDHeadache Stated Complaint: HEADACHE/VOMITING/GROIN PAIN Time Seen by Provider: 05/20/17 23:05 Hx Obtained From: Patient Onset/Duration: Started Days Ago - since 2 days ago Timing: Constant Aggravating Factor(s): Nothing Alleviating Factor(s): Nothing Associated Signs & Symptoms: Headaches, Other: - Nausea - Risk Factors Cardiac Risk Factors: Hypertension - Allergies/Home Medications Allergies/Adverse Reactions: Allergies Allergy/AdvReac Type Severity Reaction Status Date / Time aspirin Allergy Unknown Verified 04/28/17 09:10 Reaction Details gabapentin Allergy twitching, Verified 04/28/17 09:10 double vision hydrocodone Allergy twitching Verified 04/28/17 09:10 PMH/Surg Hx/FS Hx/Imm Hx Endocrine/Hematology History: Reports: Hx Anticoagulant Therapy, Hx Blood Transfusions - February 2016, Hx Anemia Denies: Hx Blood Disorders, Hx Bone Marrow Disease, Hx Diabetes, Hx Systemic Lupus Erythematosus, Hx Sickle Cell Disease, Hx Thyroid Disease, Hx Unexplained Bleeding, Other Endocrine/Hematological Disorders Cardiovascular History: Reports: Hx Congestive Heart Failure - Probable 09/18/16 , Hx Embolism - PE, Hx Hypertension - ON MEDICATION FOR, Other Cardiovascular Problems/Disorders - RT.KIDNEY TRANSPLANT FAILED AND REMOVED/DIALYSIS Denies: Hx Aneurysm, Hx Angina, Hx Angioplasty, Hx Auto Implanted Cardiovert Defib, Hx Cardiac Arrest, Hx Cardiomegaly, Hx Congenital Heart Disease, Hx Coronary Artery Disease, Hx Deep Vein Thrombosis, Hx Hypercholesterolemia, Hx Hypotension, Hx Pacemaker/ICD, Hx Peripheral Vascular Disease, Hx Rheumatic Fever, Hx Syncope, Hx Valvular Heart Disease Respiratory History: Reports: Hx Pulmonary Edema - Flash pulmonary edema resulting in CPR 09/02/16, Other Respiratory Problems/Disorders - "left lung repaired for pneumothorax in 2006 Denies: Hx Asthma, Hx Chronic Bronchitis, Hx Chronic Obstructive Pulmonary Disease (COPD), Hx Cystic Fibrosis, Hx Lung Cancer, Hx Pleural Effusion, Hx Pneumonia, Hx Pulmonary Embolism, Hx Seasonal Allergies, Hx Sleep Apnea GI History: Denies: Hx Cirrhosis, Hx Crohn's Disease, Hx Diverticulosis, Hx Gall Bladder Disease, Hx Gastroesophageal Reflux Disease, Hx Gastrointestinal Bleed, Hx Hiatal Hernia, Hx Irritable Bowel, Hx Jaundice, Hx Obstructive Bowel, Hx Ileostomy, Hx Pyloric Stenosis, Hx Ulcer, Other GI Disorders History: Reports: Hx Acute Renal Failure, Hx Chronic Renal Failure, Hx Dialysis, Hx Renal Disease - TRANSPLANT - RT, dialysis every Mon., Wed., Thu., Other Problems/Disorders - DIALYSIS Denies: Hx Benign Prostatic Hyperplasia, Hx Kidney Infection, Hx Kidney Stones Musculoskeletal History: Reports: Hx Back Problems - chronic back pain Denies: Hx Arthritis, Hx Bursitis, Hx Congenital Bone Abnormalities, Hx Fibromyalgia, Hx Gout, Hx Orthopedic Injury, Hx Osteoporosis, Hx Scoliosis, Hx Tendonitis, Other Musculoskeletal History Sensory History: Reports: Hx Contacts or Glasses, Hx Deafness, Hx Hearing Problem - moderate hearing loss bilat ears, Other Sensory Impairments - Photophobia Denies: Hx Cataracts, Hx Eye Injury, Hx Eye Prosthesis, Hx Glaucoma, Hx Legally Blind, Hx Macular Degeneration, Hx Vision Problem, Hx Hearing Aid Opthamlomology History: Reports: Hx Contacts or Glasses, Other Sensory Impairments - Photophobia Denies: Hx Cataracts, Hx Eye Injury, Hx Eye Prosthesis, Hx Glaucoma, Hx Legally Blind, Hx Macular Degeneration, Hx Vision Problem Neurological History: Reports: Hx Headaches, Hx Migraine - 1-2 PER MONTH, Hx Seizures - September 2016, Other Neuro Impairments/Disorders - Restless leg syndrome Denies: Hx Dementia, Hx Developmental Delay, Hx Nerve Disease, Hx Spinal Cord Injury, Hx Transient Ischemic Attacks (TIA) Psychiatric History: Reports: Hx Anxiety - NEW-STATES MD IS AWARE, Hx Depression - NEW-STATES MD IS AWARE Denies: Hx Attention Deficit Hyperactivity Disorder, Hx Eating Disorder, Hx Panic Disorder, Hx Post Traumatic Stress Disorder, Hx Inpatient Treatment, Hx Community Mental Health Tx, Hx Schizophrenia, Hx Bipolar Disorder, Hx Suicide Attempt, Hx of Violent Episodes Against Others, Hx Substance Abuse, Other Psychiatric Issues/Disorders - Cancer History Hx Chemotherapy: No Hx Radiation Therapy: No Hx Palliative Cancer Treatment: No - Surgical History Surgery Procedure, Year, and Place: 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[place], [place]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; LEFT LUNG SX FOR REPAIR; LEFT ARM FISTULA FOR DIALISYS 2015, RIGHT CHEST WALL CATH FOR DIALYSIS; RIGHT NEPHRECTOMY - kidney rejected, 2016 Hx Anesthesia Reactions: No - Immunization History Date of Tetanus Vaccine: Unk Date of Influenza Vaccine: Fall 2014 Infectious Disease History: No Infectious Disease History: Denies: Hx Hepatitis, Hx of Known/Suspected MRSA, Hx Shingles, Hx Tuberculosis, History Other Infectious Disease, Traveled Outside the [place] in Last 30 Days - Family History Known Family History: Positive: Other - Mother carrier of alport disease gene Negative: Blood Disorder - Social History Alcohol Use: None Alcohol Amount: Once per month before getting sick in February Hx Substance Use: No Substance Use Type: Reports: None Hx Tobacco Use: Yes Smoking Status (MU): Former Smoker Type: Cigarettes Amount Used/How Often: 1 PPD X 4 YEARS Have You Smoked in the Last Year: No Review of Systems Constitutional: Negative Eyes: Negative ENT: Negative Cardiovascular: Other - Hypertension Respiratory: Negative Positive: Nausea Genitourinary: Negative Musculoskeletal: Negative Skin: Negative Positive: Headache Psychological: Normal All Other Systems Reviewed And Are Negative: Yes Physical Exam - Summary Physical Exam Summary: VITAL SIGNS: Reviewed. GENERAL: ~Patient is a well-developed and nourished (MALE) who is lying comfortable in the stretcher. Patient is not in any acute respiratory distress. HEAD AND FACE: No signs of trauma. No ecchymosis, hematomas or skull depressions. No sinus tenderness. EYES: PERRLA, EOMI x 2, No injected conjunctiva, no nystagmus. EARS: Hearing grossly intact. Ear canals and tympanic membranes are within normal limits. MOUTH: Oropharynx within normal limits. NECK: Supple, trachea is midline, no adenopathy, no JVD, no carotid bruit, no c- spine tenderness, neck with full ROM. CHEST: Symmetric, n SKIN: Dry and warm o tenderness at palpation LUNGS: Clear to auscultation bilaterally. No wheezing or crackles. CVS: Regular rate and rhythm, S1 and S2 present, no murmurs or gallops appreciated. ABDOMEN: Soft, non-tender. No signs of distention. No rebound no guarding, and no masses palpated. Bowel sounds are normal. EXTREMITIES: AV fistula over the left upper extremity with good thrill NEURO: Alert and oriented x 3. No acute neurological deficits. Speech is normal and follows commands. Triage Information Reviewed: Yes Vital Signs On Initial Exam: Initial Vitals Temp Pulse Resp BP Pulse Ox 98.4 F 68 16 206/136 99 05/20/17 22:46 05/20/17 22:46 05/20/17 22:46 05/20/17 22:46 05/20/17 22:46 Vital Signs Reviewed: Yes Diagnostics - Vital Signs Vital Signs Temp Pulse Resp BP Pulse Ox 05/21/17 01:15 66 152/97 97 05/21/17 01:00 65 155/100 97 05/21/17 00:45 66 156/94 97 05/21/17 00:30 67 151/97 97 05/21/17 00:17 71 97 05/21/17 00:15 161/101 05/21/17 00:01 67 158/106 97 05/21/17 00:00 70 97 05/20/17 23:45 69 165/110 97 05/20/17 23:42 72 176/117 97 05/20/17 23:40 15 05/20/17 23:30 170/118 05/20/17 23:04 72 98 05/20/17 23:02 191/127 05/20/17 22:46 98.4 F 68 16 206/136 99 - Laboratory Lab Results: Lab Results 05/20/17 05/20/17 Range/Units 23:44 23:44 WBC 7.5 (3.5-10.8) 10^3/ul RBC 4.28 (4.0-5.4) 10^6/ul Hgb 12.9 L (14.0-18.0) g/dl Hct 39 L (42-52) % MCV 91 (80-94) fL MCH 30 (27-31) pg MCHC 33 (31-36) g/dl RDW 14 (10.5-15) % Plt Count 235 (150-450) 10^3/ul MPV 9 (7.4-10.4) um3 Neut % (Auto) 62.9 (38-83) % Lymph % (Auto) 24.5 L (25-47) % Lanier % (Auto) 7.7 H (0-7) % Eos % (Auto) 2.7 (0-6) % Baso % (Auto) 2.2 H (0-2) % Absolute Neuts (auto) 4.7 (1.5-7.7) 10^3/ul Absolute Lymphs (auto) 1.8 (1.0-4.8) 10^3/ul Absolute Monos (auto) 0.6 (0-0.8) 10^3/ul Absolute Eos (auto) 0.2 (0-0.6) 10^3/ul Absolute Basos (auto) 0.2 (0-0.2) 10^3/ul Absolute Nucleated RBC 0 10^3/ul Nucleated RBC % 0 Sodium 132 L (133-145) mmol/L Potassium 6.1 H* D (3.5-5.0) mmol/L Chloride 93 L (101-111) mmol/L Carbon Dioxide 30 (22-32) mmol/L Anion Gap 9 (2-11) mmol/L BUN 40 H (6-24) mg/dL Creatinine 8.62 H (0.67-1.17) mg/dL Est GFR ( Amer) 9.4 (>60) Est GFR (Non-Af Amer) 7.3 (>60) BUN/Creatinine Ratio 4.6 L (8-20) Glucose 90 (70-100) mg/dL Calcium 10.8 H (8.6-10.3) mg/dL Result Diagrams: 05/20/17 23:44 05/20/17 23:44 Lab Statement: Any lab studies that have been ordered have been reviewed, and results considered in the medical decision making process. - EKG 0051 EKG Rhythm: Sinus Rhythm - 60 bpm EKG Interpretation: EKG reveals at 0051 peaked T waves in the anterior waves Hypertension Course/Dx - Course Course Of Treatment: The pt is a 32 y/o male with a chief complaint of HTN. Pt has a pertinent PMHx includes Alport's syndrome. He reports of nausea and TEIXEIRA. Patient was previously in the [facility] for similar symptoms approximately 2 days ago. An EKG was ordered in the [facility]. Upon reevalaution, pt discussed bilateral testicular pain. We examined did a testicular exam, which revealed no swelling, redness, or torsion. Pt states he has a hx of testicular pain in the last few years. Pt also exhibits hyperkalemia upon reviewing lab findings. Medications were given (please refer to order sheet). The dx will be HTN, migraine TEIXEIRA, and hyperkalemia. The pt will be discharged home. We recommended follow up with Dr. Arana and pt will receive a dialysis today at 0630 (05/21/17). - Diagnoses Provider Diagnoses: Hyperkalemia, HTN (hypertension), Migraine headache Discharge - Discharge Plan Condition: Stable Disposition: HOME Referrals: Christa Frey MD [Primary Care Provider] - The documentation as recorded by the Gregoria florence Abhishek accurately reflects the service I personally performed and the decisions made by me, Leticia Coleman MD.
== END 2017-05-21 03:05 | disposition home or self-care (01) ==
LOC: ED 22:40
DX: R51 Headache (principal); R11.0 Nausea; Z79.01 Long term (current) use of anticoagulants; Z86.79 Personal history of other diseases of the circulatory system; Z87.891 Personal history of nicotine dependence; E87.5 Hyperkalemia; I10 Essential (primary) hypertension; G43.909 Migraine, unspecified, not intractable, without status migrainosus
CPT/HCPCS: 36415; 80048; 85025; 93005; 96374; 96375; 99284; A9270-GY; J0610; J1200; J2765; J3010

== ENCOUNTER 2017-05-31 18:30 | Inpatient (IN) | payer BC ==
[2017-05-31] MEDS ORDERED: Ondansetron INJ* 2 MG/ML VIAL IV ONE (21:37)
[2017-05-31] MEDS: Labetalol IV* 5 MG/ML 20 ML VIAL IV PUSH ONE ×2 (21:53→23:40)
[2017-05-31] MEDS ORDERED: HYDROmorphone INJ* 2 MG/ML CARPUJECT SYRINGE IV SLOW PU ONE ×2 (22:12→23:45)
[2017-05-31] MEDS ORDERED: HYDROmorphone INJ* 1 MG/ML CARPUJECT SYRINGE ONE (22:16)
[2017-05-31 22:41] LABS: ABS Basophils 0.1 10^3/ul (0-0.2); ABS Eosinophils 0 10^3/ul (0-0.6); ABS Lymphocytes 1.1 10^3/ul (1.0-4.8); ABS Monocytes 0.2 10^3/ul (0-0.8); ABS Neutrophils 3.9 10^3/ul (1.5-7.7); ABS Nucleated RBC 0 10^3/ul; Eosinophil % 0.6 % (0-6); Hematocrit 35 % (42-52); Hemoglobin 12.1 g/dl (14.0-18.0); Lymphocyte % 20.1 % (25-47); Mean Corpuscular HGB Conc 34 g/dl (31-36); Mean Corpuscular Hemoglobin 30 pg (27-31); Mean Corpuscular Volume 87 fL (80-94); Mean Platelet Volume 8.9 um3 (7.4-10.4); Nucleated Red Blood Cells % 0; Platelet Count 176 10^3/ul (150-450); Red Blood Count 4.06 10^6/ul (4.0-5.4); Red Cell Distribution Width 14 % (10.5-15); White Blood Count 5.3 10^3/ul (3.5-10.8)
[2017-05-31 22:56] LABS: EGFR Non-African American 4.4 (>60)
[2017-05-31] MEDS ORDERED: Labetalol IV* 5 MG/ML 20 ML VIAL IV PUSH ONE (23:45)
[2017-06-01] MEDS ORDERED: cloNIDine TAB* 0.1 MG PO ONE (00:42)
[2017-06-01] MEDS ORDERED: Ondansetron INJ* 2 MG/ML VIAL ONE (00:49)
[2017-06-01] MEDS ORDERED: Ondansetron INJ* 2 MG/ML VIAL IV ONE (00:52)
[2017-06-01] MEDS ORDERED: HYDROmorphone INJ* 2 MG/ML CARPUJECT SYRINGE IV SLOW PU ONE (01:29)
[2017-06-01] MEDS ORDERED: Promethazine INJ(RESTRICTED)* 25 MG/ML 1 ML VIAL IM ONE (02:41)
[2017-06-01] MEDS ORDERED: PROCHLORPERAZINE INJ 5 MG/ML 2 ML VIAL IV ONE (03:12)
--- NOTE | 2017-06-01 03:41 | ED ---
Frank Alejandro Nikita, scribed for Dominic Sommers MD on 05/31/17 at 2046 . Complex/Multi-Sys Presentation - HPI Summary HPI Summary: This patient is a 32 year old M presenting to ED with a chief complaint of diffuse TEIXEIRA, nausea, and vomiting since 1 day ago. The CC is described as aching. The patient rates the pain 9/10 in severity. Symptoms aggravated by nothing. Symptoms alleviated slightly by methadone and zofran. Patient reports photophobia, sensitivity to sound, neck stiffness, dry skin, and vomiting (hasn t been able to take his last two medications). Denies fever. PMHx of migraine ( twice two weeks ago HTN) and alport syndrome. - History Of Current Complaint Chief Complaint: EDHeadache Hx Obtained From: Patient Onset/Duration: Sudden Onset, Lasting Days, Still Present Timing: Constant, Days Severity Currently: Severe Severity Initially: Severe Location: Pain At: - headache Aggravating Factor(s): nothing Alleviating Factor(s): methadone and zofran with little effect Associated Signs And Symptoms: Positive: Other - Patient reports photophobia, sensitivity to sound, neck stiffness, dry skin, and vomiting (hasnt been able to take his last two medications). Denies fever. - Allergies/Home Medications Allergies/Adverse Reactions: Allergies Allergy/AdvReac Type Severity Reaction Status Date / Time aspirin Allergy Unknown Verified 04/28/17 09:10 Reaction Details gabapentin Allergy twitching, Verified 04/28/17 09:10 double vision hydrocodone Allergy twitching Verified 04/28/17 09:10 PMH/Surg Hx/FS Hx/Imm Hx Endocrine/Hematology History: Reports: Hx Anticoagulant Therapy, Hx Blood Transfusions - February 2016, Hx Anemia Denies: Hx Blood Disorders, Hx Bone Marrow Disease, Hx Diabetes, Hx Systemic Lupus Erythematosus, Hx Sickle Cell Disease, Hx Thyroid Disease, Hx Unexplained Bleeding, Other Endocrine/Hematological Disorders Cardiovascular History: Reports: Hx Congestive Heart Failure - Probable 09/18/16 , Hx Embolism - PE, Hx Hypertension - ON MEDICATION FOR, Other Cardiovascular Problems/Disorders - RT.KIDNEY TRANSPLANT FAILED AND REMOVED/DIALYSIS Denies: Hx Aneurysm, Hx Angina, Hx Angioplasty, Hx Auto Implanted Cardiovert Defib, Hx Cardiac Arrest, Hx Cardiomegaly, Hx Congenital Heart Disease, Hx Coronary Artery Disease, Hx Deep Vein Thrombosis, Hx Hypercholesterolemia, Hx Hypotension, Hx Pacemaker/ICD, Hx Peripheral Vascular Disease, Hx Rheumatic Fever, Hx Syncope, Hx Valvular Heart Disease Respiratory History: Reports: Hx Pulmonary Edema - Flash pulmonary edema resulting in CPR 09/02/16, Other Respiratory Problems/Disorders - "left lung repaired for pneumothorax in 2006 Denies: Hx Asthma, Hx Chronic Bronchitis, Hx Chronic Obstructive Pulmonary Disease (COPD), Hx Cystic Fibrosis, Hx Lung Cancer, Hx Pleural Effusion, Hx Pneumonia, Hx Pulmonary Embolism, Hx Seasonal Allergies, Hx Sleep Apnea GI History: Denies: Hx Cirrhosis, Hx Crohn's Disease, Hx Diverticulosis, Hx Gall Bladder Disease, Hx Gastroesophageal Reflux Disease, Hx Gastrointestinal Bleed, Hx Hiatal Hernia, Hx Irritable Bowel, Hx Jaundice, Hx Obstructive Bowel, Hx Ileostomy, Hx Pyloric Stenosis, Hx Ulcer, Other GI Disorders History: Reports: Hx Acute Renal Failure, Hx Chronic Renal Failure, Hx Dialysis, Hx Renal Disease - TRANSPLANT - RT, dialysis every Mon., Wed., Thu., Other Problems/Disorders - DIALYSIS Denies: Hx Benign Prostatic Hyperplasia, Hx Kidney Infection, Hx Kidney Stones Musculoskeletal History: Reports: Hx Back Problems - chronic back pain Denies: Hx Arthritis, Hx Bursitis, Hx Congenital Bone Abnormalities, Hx Fibromyalgia, Hx Gout, Hx Orthopedic Injury, Hx Osteoporosis, Hx Scoliosis, Hx Tendonitis, Other Musculoskeletal History Sensory History: Reports: Hx Contacts or Glasses, Hx Deafness, Hx Hearing Problem - moderate hearing loss bilat ears, Other Sensory Impairments - Photophobia Denies: Hx Cataracts, Hx Eye Injury, Hx Eye Prosthesis, Hx Glaucoma, Hx Legally Blind, Hx Macular Degeneration, Hx Vision Problem, Hx Hearing Aid Opthamlomology History: Reports: Hx Contacts or Glasses, Other Sensory Impairments - Photophobia Denies: Hx Cataracts, Hx Eye Injury, Hx Eye Prosthesis, Hx Glaucoma, Hx Legally Blind, Hx Macular Degeneration, Hx Vision Problem Neurological History: Reports: Hx Headaches, Hx Migraine - 1-2 PER MONTH, Hx Seizures - September 2016, Other Neuro Impairments/Disorders - Restless leg syndrome Denies: Hx Dementia, Hx Developmental Delay, Hx Nerve Disease, Hx Spinal Cord Injury, Hx Transient Ischemic Attacks (TIA) Psychiatric History: Reports: Hx Anxiety - NEW-STATES MD IS AWARE, Hx Depression - NEW-STATES MD IS AWARE Denies: Hx Attention Deficit Hyperactivity Disorder, Hx Eating Disorder, Hx Panic Disorder, Hx Post Traumatic Stress Disorder, Hx Inpatient Treatment, Hx Community Mental Health Tx, Hx Schizophrenia, Hx Bipolar Disorder, Hx Suicide Attempt, Hx of Violent Episodes Against Others, Hx Substance Abuse, Other Psychiatric Issues/Disorders - Cancer History Hx Chemotherapy: No Hx Radiation Therapy: No Hx Palliative Cancer Treatment: No - Surgical History Surgery Procedure, Year, and Place: 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[place], [place]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; LEFT LUNG SX FOR REPAIR; LEFT ARM FISTULA FOR DIALISYS 2015, RIGHT CHEST WALL CATH FOR DIALYSIS; RIGHT NEPHRECTOMY - kidney rejected, 2016 Hx Anesthesia Reactions: No - Immunization History Date of Tetanus Vaccine: Unk Date of Influenza Vaccine: Fall 2014 Infectious Disease History: No Infectious Disease History: Denies: Hx Hepatitis, Hx of Known/Suspected MRSA, Hx Shingles, Hx Tuberculosis, History Other Infectious Disease, Traveled Outside the [place] in Last 30 Days - Family History Known Family History: Positive: Other - Mother carrier of alport disease gene Negative: Blood Disorder - Social History Alcohol Use: None Alcohol Amount: Once per month before getting sick in February Hx Substance Use: No Substance Use Type: Reports: None Hx Tobacco Use: Yes Smoking Status (MU): Former Smoker Type: Cigarettes Amount Used/How Often: 1 PPD X 4 YEARS Have You Smoked in the Last Year: No Review of Systems Negative: Fever Positive: Photophobia Positive: Other - sound sensitivity, neck stiffness Positive: Vomiting, Nausea Positive: Other - dry skin Positive: Headache All Other Systems Reviewed And Are Negative: Yes Physical Exam - Summary Physical Exam Summary: Appearance: Well-appearing, Well-nourished Skin: Warm, Fistula on L upper extremities Eyes: Normal ENT: Normal Neck: Supple, nontender Respiratory: Clear to auscultation Cardiovascular: Normal S1, S2. No murmurs. Normal distal pulses in tibial and radial bilaterally. Abdomen: Soft, nontender, scar well healed on RLQ Musculoskeletal: Normal, Strength/ROM Intact Neurological: Normal, A&Ox3 Psychiatric: Normal General: No acute distress Triage Information Reviewed: Yes Vital Signs On Initial Exam: Initial Vitals Temp Pulse Resp BP Pulse Ox 98 F 79 16 204/129 100 05/31/17 19:04 05/31/17 19:04 05/31/17 19:04 05/31/17 19:04 05/31/17 19:04 Vital Signs Reviewed: Yes Diagnostics - Vital Signs Vital Signs Temp Pulse Resp BP Pulse Ox 05/31/17 19:04 98 F 79 16 204/129 100 - Laboratory Result Diagrams: 05/31/17 22:30 05/31/17 22:30 Lab Statement: Any lab studies that have been ordered have been reviewed, and results considered in the medical decision making process. - EKG 2231 Cardiac Rate: NL EKG Rhythm: Sinus Rhythm - 84 bpm; borderline prolonged QT interval; no acute ischemic ST changes Re-Evaluation - Re-Evaluation First Eval Re-Evaluation Time: 03:25 Comment: The patient improves with medication but has waxing and waning course. Discussed with pt who agrees to be admitted. Complex Multi-Symp Course/Dx Assessment/Plan: Patients BP and symptoms temporarily improved with multiple rounds of IV medications here in the ED. TEIXEIRA persistent. Admitted for further treatment and dialysis in the morning. - Diagnoses Differential Diagnoses/HQI/PQRI: Other - intractable TEIXEIRA Provider Diagnoses: Headache, Intractable headache - Physician Notifications Discussed Care Of Patient With: Josh Smith Time Discussed With Above Provider: 03:25 Instructed by Provider To: Other - Consulted Dr. Smith who accepts the patient for admission. Discharge - Sign-Out/Discharge Documenting (check all that apply): Discharge - Discharge Plan Condition: Guarded Disposition: ADMITTED TO [facility] Referrals: Christa Frey MD [Primary Care Provider] - The documentation as recorded by the Frank florence Nikita accurately reflects the service I personally performed and the decisions made by me, Dominic Sommers MD.
[2017-06-01] MEDS ORDERED: Acetaminophen TAB* 325 MG PO PRN (05:35)
[2017-06-01] MEDS ORDERED: Melatonin 3 MG TAB PO PRN (05:35)
[2017-06-01] MEDS ORDERED: traMADol TAB* 50 MG PO PRN (05:35)
--- NOTE | 2017-06-01 06:03 | HP ---
H&P (Free Text) History and Physical: PCP: Anthony Frey MD Nephrology: Wai Arana MD Date/Time: 06/01/2017 0530 CC: headache, N/V HPI: Mr Sotelo is a 32YO male HX Alport syndrome w/ ESRD-HD MWF who reports onset of severe migraine with photophobia & N/V around 2300 for which he presents. His initial blood pressures were systolic in the 200s. He denies F/C, sweats, chest pain, SOB, focal weakness, cough, congestion, or other issues. He states this is a typical migraine for him. In the ED he has been given labetalol 20mg IV x2 & clonidine 0.1mg PO x1 bringing his systolics now down to the 160s. He continues to have a migraine with photophobia despite a total of 3mg IV hydromorphone. As such he will be admitted observation for intractable migraine & HTN. PMedHx Alport syndrome ESRD-HD MWF HTN anemia of renal disease spontaneous pneumothorax Ambulatory Orders Nursing to reconcile. Ropinirole TAB* [Requip TAB*] 0.5 mg PO BID 11/11/15 Sevelamer TAB* [Renvela TAB*] 4,000 mg PO TID WITH MEALS 11/11/15 Propranolol TAB* [Inderal TAB*] 80 mg PO TID #90 tab 01/25/16 MinoXIDil TAB* [Loniten TAB*] 10 mg PO BID 12/22/16 Omeprazole CAP* [Prilosec CAP* 20 MG] 40 mg PO DAILY 12/22/16 amLODIPine TAB* [Norvasc 5 mg TAB*] 10 mg PO DAILY 12/22/16 Promethazine TAB* [Phenergan Tab*] 25 mg PO Q6H PRN #30 tab 04/28/17 Divalproex ER TAB(*) [Depakote ER TAB(*)] 1,000 mg PO QAM 05/18/17 Divalproex ER TAB(*) [Depakote ER TAB(*)] 1,500 mg PO QPM 05/18/17 Methadone TAB* [Dolophine TAB*] 5 mg PO Q12H PRN MDD 10mg 05/18/17 Ondansetron ODT TAB* [Zofran 4 MG Odt TAB*] 4 mg PO Q6H PRN 05/18/17 Patiromer Calcium Sorbitex [Veltassa] 8.4 gm PO . DIRECTED 05/18/17 Senna TAB* [Senokot TAB*] 1 tab PO DAILY PRN 05/18/17 Sevelamer TAB* [Renvela TAB*] 1,600 mg PO .WITH SNACKS 05/18/17 Sodium Polystyrene ORAL.KARI* [Kayexalate ORAL.KARI*] 15 gm PO . DIRECTED Verapamil HCl [Verapamil HCl Sr] 240 mg PO DAILY 05/18/17 Allergies aspirin Allergy (Verified 04/28/17 09:10) Unknown Reaction Details gabapentin Allergy (Verified 04/28/17 09:10) twitching, double vision hydrocodone Allergy (Verified 04/28/17 09:10) twitching PSurgHx failed renal transplant AV fistula placement PD catheter placement and removal SocHx: no tobacco, alcohol, or recreational drugs; lives alone; full code status FamHx: Mother: Alport carrier; Father: HTN ROS: as above, otherwise reviewed and all were negative vitals: Vital Signs Temp 37.6 C 05/31/17 21:54 Pulse 79 06/01/17 05:34 Resp 9 06/01/17 05:34 BP 172/110 06/01/17 05:34 Pulse Ox 95 06/01/17 05:34 Intake & Output 05/31/17 05/31/17 06/01/17 11:59 23:59 11:59 Weight 67 kg Constitutional: NAD, normally developed, well-nourished white male HEENM: atraumatic; sclera/conjunctiva: anicteric/clear; hearing: mild- moderately [id number]; oropharynx: clear, moist Neck: soft tissue: no nuchal rigidity; thyroid: normal Pulmonary: clear to auscultation bilaterally, good aeration, no accessory muscle use CV: RR/RR, normal S1S2, no carotid bruit, no jugular venous distention, 2+ B DP/ PT, no edema Abdominal: soft, non-distended, non-tender, no rebound/guarding/rigidity, normoactive bowel sounds, no hepatosplenomegaly or masses, no costovertebral angle tenderness Musculoskeletal: general: grossly intact, no tenderness with palpation Integumental: normal appearance and texture of exposed skin, AV fistula LUE Psychiatric orientation: AA&O to PPS affect: irritable mood: unpleasant eye contact: poor content: reliable responses: timely insight: fair to poor Testing: Lab Results 05/31/17 05/31/17 Range/Units 22:30 22:30 WBC 5.3 (3.5-10.8) 10^3/ul RBC 4.06 (4.0-5.4) 10^6/ul Hgb 12.1 L (14.0-18.0) g/dl Hct 35 L (42-52) % MCV 87 (80-94) fL MCH 30 (27-31) pg MCHC 34 (31-36) g/dl RDW 14 (10.5-15) % Plt Count 176 (150-450) 10^3/ul MPV 8.9 (7.4-10.4) um3 Neut % (Auto) 72.7 (38-83) % Lymph % (Auto) 20.1 L (25-47) % [place] % (Auto) 4.5 (0-7) % Eos % (Auto) 0.6 (0-6) % Baso % (Auto) 2.1 H (0-2) % Absolute Neuts (auto) 3.9 (1.5-7.7) 10^3/ul Absolute Lymphs (auto) 1.1 (1.0-4.8) 10^3/ul Absolute Monos (auto) 0.2 (0-0.8) 10^3/ul Absolute Eos (auto) 0 (0-0.6) 10^3/ul Absolute Basos (auto) 0.1 (0-0.2) 10^3/ul Absolute Nucleated RBC 0 10^3/ul Nucleated RBC % 0 Sodium 134 (133-145) mmol/L Potassium 4.4 (3.5-5.0) mmol/L Chloride 92 L (101-111) mmol/L Carbon Dioxide 27 (22-32) mmol/L Anion Gap 15 H (2-11) mmol/L BUN 35 H (6-24) mg/dL Creatinine 13.42 H (0.67-1.17) mg/dL Est GFR ( Amer) 5.6 (>60) Est GFR (Non-Af Amer) 4.4 (>60) BUN/Creatinine Ratio 2.6 L (8-20) Glucose 80 (70-100) mg/dL Calcium 10.6 H (8.6-10.3) mg/dL Total Bilirubin 1.20 H (0.2-1.0) mg/dL AST 8 L (13-39) U/L ALT 7 (7-52) U/L Alkaline Phosphatase 56 (34-104) U/L Total Protein 7.2 (6.4-8.9) g/dL Albumin 4.4 (3.2-5.2) g/dL Globulin 2.8 (2-4) g/dL Albumin/Globulin Ratio 1.6 (1-3) ECG, personally reviewed: NSR rate 84, no ischemia Impression: 32M HX Alport syndrome w/ ESRD-HD MWF & HTN presenting with a typical for him migraine, HTN, & N/V; while his BP has improved w/ medication, lowering his BP has not improved his headache; as such I feel his migraine is fueling his BP rather than this being a hypertensive urgency DIAGNOSIS & PLAN Primary intractable migraine : pain control : consider neurology consult in AM if no relief : supportive care HTN, uncontrolled : 2nd pain of migraine : PRN hydralazine : continue routine meds once reconciled Secondary Alport syndrome w/ ESRD-HD MWF : have HD switched to inpatient in AM Admission Rational: observation for intractable migraine w/ HTN DVTp: JENNIFER Code Status: full
[2017-06-01] MEDS: Docusate CAP* 100 MG PO SCH ×2 (08:16→21:05)
[2017-06-01] MEDS: hydrALAZINE IV* 20 MG/ML VIAL IV PRN ×3 (08:17→16:31)
[2017-06-01] MEDS: Omeprazole CAP* 20 MG PO SCH (08:17)
[2017-06-01] MEDS ORDERED: Promethazine TAB* 25 MG PO PRN (09:03)
[2017-06-01] MEDS ORDERED: Methadone TAB* 5 MG PO PRN (09:03)
[2017-06-01] MEDS ORDERED: LORazepam TAB(*) 1 MG PO PRN (09:03)
[2017-06-01] MEDS ORDERED: Sevelamer TAB* 800 MG PO SCH (10:00)
[2017-06-01] MEDS ORDERED: Patiromer POWDER* 8.4 GM PAK PO SCH (10:00)
--- NOTE | 2017-06-01 11:06 | PN ---
Subjective Date of Service: 06/01/17 Interval History: Patient seen and examined. Flat affect, does not participate in care planning discussion. States headache is still 8/10 and started last night. Difficult to communicate with, primarily one word answers and is wearing eye mask. Objective Active Medications: Acetaminophen (Tylenol Tab*) 650 mg PO Q6H PRN PRN Reason: FEVER/PAIN Amlodipine Besylate (Norvasc Tab*) 10 mg PO DAILY [facility] Divalproex Sodium (Depakote Er Tab(*)) 1,000 mg PO QAM [facility] Divalproex Sodium (Depakote Er Tab(*)) 1,500 mg PO QPM [facility] Docusate Sodium (Colace Cap*) 200 mg PO BID [facility] Last Admin: 06/01/17 08:16 Dose: 200 mg Hydralazine HCl (Apresoline Iv*) 10 mg IV Q4H PRN PRN Reason: Systolic >170 Last Admin: 06/01/17 08:17 Dose: 10 mg Lorazepam (Ativan Tab(*)) 2 mg PO Q6H PRN PRN Reason: ANXIETY Melatonin (Melatonin (Nf)) 3 mg PO BEDTIME PRN; Protocol PRN Reason: Sleep Methadone HCl (Dolophine Tab*) 5 mg PO Q12H PRN PRN Reason: SEVERE PAIN Last Admin: 06/01/17 09:57 Dose: 5 mg Minoxidil (Loniten Tab*) 10 mg PO BID [facility] Omeprazole (Prilosec Cap*) 20 mg PO DAILY@0600 [facility] Last Admin: 06/01/17 08:17 Dose: 20 mg Ondansetron HCl (Zofran Inj*) 4 mg IV Q6H PRN PRN Reason: NAUSEA Patiromer (Patir) 8.4 gm PO . DIRECTED [facility] Promethazine HCl (Phenergan Tab*) 25 mg PO Q6H PRN PRN Reason: headache/nausea Propranolol HCl (Inderal Tab*) 80 mg PO TID [facility] Ropinirole HCl (Requip Tab*) 0.5 mg PO BID [facility] Sevelamer Carbonate (Renvela Tab*) 1,600 mg PO .WITH SNACKS [facility] Tramadol HCl (Ultram*) 50 mg PO Q12H PRN PRN Reason: PAIN Verapamil HCl (Calan Sr Tab*) 240 mg PO DAILY [facility] Vital Signs - 8 hr 06/01/17 06/01/17 06/01/17 05:34 06:00 06:30 Temperature Pulse Rate 79 78 81 Respiratory 9 11 12 Rate Blood Pressure 172/110 176/104 169/108 (mmHg) O2 Sat by Pulse 95 96 96 Oximetry 06/01/17 06/01/17 06/01/17 07:00 07:20 07:44 Temperature 98.9 F 97.4 F Pulse Rate 81 81 68 Respiratory 19 19 18 Rate Blood Pressure 150/81 150/81 185/105 (mmHg) O2 Sat by Pulse 96 96 99 Oximetry 06/01/17 06/01/17 08:48 09:57 Temperature Pulse Rate 81 Respiratory 14 Rate Blood Pressure 170/93 (mmHg) O2 Sat by Pulse Oximetry Oxygen Devices in Use Now: None Eyes: - - wearing eye mask, will not take off Ears/Nose/Mouth/Throat: Mucous Membranes Moist Neck: Trachea Midline Respiratory: Symmetrical Chest Expansion and Respiratory Effort, Clear to Auscultation Cardiovascular: - - high grade murmur Abdominal: NL Sounds; No Tenderness; No Distention Extremities: No Edema Neurological: Alert and Oriented x 3 Result Diagrams: 05/31/17 22:30 05/31/17 22:30 Assess/Plan/Problems-Billing Assessment: This is a 32 year old male with Alport Syndrome that presents with overt hypertension and migraine headache. - Patient Problems (1) Accelerated secondary hypertension Code(s): I15.9 - SECONDARY HYPERTENSION, UNSPECIFIED SNOMED Code(s): 67618588 Comment: - Continue home meds and hydralazine - HD today, suspect he will have some additional improvement after dialysis (2) Migraine headache Code(s): G43.909 - MIGRAINE, UNSP, NOT INTRACTABLE, WITHOUT STATUS MIGRAINOSUS SNOMED Code(s): 76023774 Comment: - Recommend stopping dilaudid IV - Initiate home dose of methadone - Continue BP meds - IF no improvment after dialysis, may consult neuro (3) Alport syndrome Code(s): Q87.81 - ALPORT SYNDROME SNOMED Code(s): 034608720 Comment: - Failed PD and transplant - On HD MWF - Baseline hearing loss and ESRD Status and Disposition: Re-eval after dialysis. Counseling and/or Coordination of Care Minutes: coordinated with patient and RN.
[2017-06-01] MEDS ORDERED: Heparin DIALYSIS ONLY(*) 1,000 UNITS/ML VIAL DIALYSIS ONE (12:00)
[2017-06-01] MEDS: HYDROmorphone INJ* 2 MG/ML CARPUJECT SYRINGE IV SLOW PU PRN ×3 (15:12→21:13)
[2017-06-01] MEDS: Ondansetron INJ* 2 MG/ML VIAL IV PRN ×2 (15:12→16:33)
[2017-06-01] MEDS: Propranolol TAB* 80 MG PO SCH ×2 (15:28→21:04)
[2017-06-01] MEDS: Divalproex ER TAB(*) 500 MG PO SCH (18:19)
[2017-06-01] MEDS: PROCHLORPERAZINE INJ 5 MG/ML 2 ML VIAL IV PRN (19:56)
[2017-06-01] MEDS: Ropinirole TAB* 0.5 MG TAB PO SCH (21:04)
[2017-06-01] MEDS: MinoXIDil TAB* 10 MG TAB PO SCH (21:04)
[2017-06-02] MEDS: Omeprazole CAP* 20 MG PO SCH ×2 (05:24→05:29)
[2017-06-02] MEDS: Propranolol TAB* 80 MG PO SCH ×3 (07:48→21:07)
[2017-06-02] MEDS: amLODIPine TAB* 5 MG PO SCH (07:48)
[2017-06-02] MEDS: Verapamil SR TAB* 240 MG PO SCH (07:48)
[2017-06-02] MEDS: Ropinirole TAB* 0.5 MG TAB PO SCH ×2 (07:49→21:07)
[2017-06-02] MEDS: MinoXIDil TAB* 10 MG TAB PO SCH ×2 (07:49→21:07)
[2017-06-02] MEDS: Docusate CAP* 100 MG PO SCH ×2 (07:49→21:06)
[2017-06-02] MEDS: Divalproex ER TAB(*) 500 MG PO SCH ×2 (07:49→16:53)
[2017-06-02] MEDS: Ondansetron INJ* 2 MG/ML VIAL IV PRN (07:56)
[2017-06-02] MEDS: hydrALAZINE IV* 20 MG/ML VIAL IV PRN (08:03)
[2017-06-02] MEDS: HYDROmorphone INJ* 2 MG/ML CARPUJECT SYRINGE IV SLOW PU PRN (12:04)
[2017-06-02] MEDS: PROCHLORPERAZINE INJ 5 MG/ML 2 ML VIAL IV PRN (12:05)
--- NOTE | 2017-06-02 15:38 | PN ---
Subjective Date of Service: 06/02/17 Interval History: Patient seen and examined. Seems in better mood today, more talkative. States headache was better this morning, but is now coming on again. Afraid that it will become severe. Also has accompanying nausea. States HAs have been increasing in frequency and severity. Has seen an neurologist in the past but can't remember whom he has seen. Objective Active Medications: Acetaminophen (Tylenol Tab*) 650 mg PO Q6H PRN PRN Reason: FEVER/PAIN Amlodipine Besylate (Norvasc Tab*) 10 mg PO DAILY [facility]S [facility]CLUDE 234 BEDS AT [facility] Last Admin: 06/02/17 07:48 Dose: 10 mg Divalproex Sodium (Depakote Er Tab(*)) 1,000 mg PO QAM COUNTS INCLUDE 234 BEDS AT THE [facility] Last Admin: 06/02/17 07:49 Dose: Not Given Divalproex Sodium (Depakote Er Tab(*)) 1,500 mg PO QPM COUNTS INCLUDE 234 BEDS AT THE [facility] Last Admin: 06/01/17 18:19 Dose: 1,500 mg Docusate Sodium (Colace Cap*) 200 mg PO BID COUNTS INCLUDE 234 BEDS AT THE [facility] Last Admin: 06/02/17 07:49 Dose: Not Given Hydralazine HCl (Apresoline Iv*) 10 mg IV Q4H PRN PRN Reason: Systolic >170 Last Admin: 06/02/17 08:03 Dose: 10 mg Hydromorphone HCl (Dilaudid Inj*) 1 mg IV SLOW PU Q4H PRN PRN Reason: PAIN Last Admin: 06/02/17 12:04 Dose: 1 mg Lorazepam (Ativan Tab(*)) 2 mg PO Q6H PRN PRN Reason: ANXIETY Melatonin (Melatonin (Nf)) 3 mg PO BEDTIME PRN; Protocol PRN Reason: Sleep Methadone HCl (Dolophine Tab*) 5 mg PO Q12H PRN PRN Reason: SEVERE PAIN Last Admin: 06/01/17 09:57 Dose: 5 mg Minoxidil (Loniten Tab*) 10 mg PO BID COUNTS INCLUDE 234 BEDS AT [facility] Last Admin: 06/02/17 07:49 Dose: Not Given Omeprazole (Prilosec Cap*) 20 mg PO DAILY@0600 COUNTS INCLUDE 234 BEDS AT [facility] Last Admin: 06/02/17 05:29 Dose: Not Given Ondansetron HCl (Zofran Inj*) 4 mg IV Q6H PRN PRN Reason: NAUSEA Last Admin: 06/02/17 07:56 Dose: 4 mg Prochlorperazine Edisylate (Compazine Inj*) 10 mg IV Q6H PRN PRN Reason: NAUSEA/VOMITING Last Admin: 06/02/17 12:05 Dose: 10 mg Promethazine HCl (Phenergan Tab*) 25 mg PO Q6H PRN PRN Reason: headache/nausea Propranolol HCl (Inderal Tab*) 80 mg PO TID COUNTS INCLUDE 234 BEDS AT [facility] Last Admin: 06/02/17 13:25 Dose: 80 mg Ropinirole HCl (Requip Tab*) 0.5 mg PO BID COUNTS INCLUDE 234 BEDS AT THE [facility] Last Admin: 06/02/17 07:49 Dose: Not Given Sevelamer Carbonate (Renvela Tab*) 1,600 mg PO .WITH SNACKS COUNTS INCLUDE 234 BEDS AT THE [facility] Tramadol HCl (Ultram*) 50 mg PO Q12H PRN PRN Reason: PAIN Verapamil HCl (Calan Sr Tab*) 240 mg PO DAILY COUNTS INCLUDE 234 BEDS AT THE [facility] Last Admin: 06/02/17 07:48 Dose: 240 mg Vital Signs - 8 hr 06/02/17 06/02/17 06/02/17 07:36 08:00 08:02 Temperature 98.6 F 98.2 F Pulse Rate 78 87 Respiratory 18 18 Rate Blood Pressure 144/70 180/102 180/84 (mmHg) O2 Sat by Pulse 98 98 Oximetry 06/02/17 06/02/17 06/02/17 08:06 11:24 12:04 Temperature 98.9 F Pulse Rate 93 Respiratory 16 18 18 Rate Blood Pressure 142/71 (mmHg) O2 Sat by Pulse 100 Oximetry 06/02/17 12:41 Temperature Pulse Rate Respiratory 16 Rate Blood Pressure (mmHg) O2 Sat by Pulse Oximetry Oxygen Devices in Use Now: None Appearance: Alert, NAD Ears/Nose/Mouth/Throat: Mucous Membranes Moist Neck: Trachea Midline Respiratory: Symmetrical Chest Expansion and Respiratory Effort, Clear to Auscultation Cardiovascular: RRR - grade V/ murmur, No Edema Abdominal: NL Sounds; No Tenderness; No Distention Extremities: No Edema, No Clubbing, Cyanosis Neurological: Alert and Oriented x 3 Nutrition: Taking PO's Result Diagrams: 05/31/17 22:30 05/31/17 22:30 Assess/Plan/Problems-Billing Assessment: This is a 32 year old male with Alport Syndrome that presents with overt hypertension and migraine headache. - Patient Problems (1) Accelerated secondary hypertension Code(s): I15.9 - SECONDARY HYPERTENSION, UNSPECIFIED SNOMED Code(s): 80809960 Comment: - Continue home meds and hydralazine - some improvement in the last 24 hours (2) Migraine headache Code(s): G43.909 - MIGRAINE, UNSP, NOT INTRACTABLE, WITHOUT STATUS MIGRAINOSUS SNOMED Code(s): 51478820 Comment: - Placed back on dilaudid and zofran for refractory headache - Discussed with Dr. Vallejo who will see the patient (3) Alport syndrome Code(s): Q87.81 - ALPORT SYNDROME SNOMED Code(s): 793963800 Comment: - Failed PD and transplant - On HD MWF - Baseline hearing loss and ESRD Status and Disposition: Remain inpatient for stabilization of headache and BP. Counseling and/or Coordination of Care Minutes: coordinated with staff
[2017-06-02] MEDS ORDERED: Metoclopramide IV* 5 MG/ML 2 ML VIAL IV PRN (16:31)
[2017-06-02] MEDS ORDERED: diPHENhydraMINE IV* 50 MG/ML 1 ml VIAL (BENADRYL) IV PRN (16:31)
[2017-06-02] MEDS ORDERED: Valproic Acid IV(*) 1,000 MG in NS 0.9% 100 ML* 100 ML IVPB ONE (16:39)
--- NOTE | 2017-06-02 21:39 | CONS ---
CC: Dr. Mike; Dr. Arana * NEUROLOGY CONSULTATION: DATE OF CONSULT: 06/02/17 REASON FOR CONSULT: Intractable migraine. HISTORY OF PRESENT ILLNESS: Juan Francisco Sotelo is a 32-year-old man with a history of Alport syndrome with end-stage renal disease on hemodialysis, Thursday, Thursday, Thursday as well as migraine headaches since he has been on dialysis, receiving Botox, who for the past two weeks or so has had increase in his typical migraines. He describes holocephalic pain associated with photophobia and phonophobia as well as nausea and vomiting. He had previously been seen in the emergency department on the 05/18 as well as 05/21 and then presented again on the secondary to this pain and being unable to keep his medication down , which includes extensive antihypertensives. On his most recent evaluation in the ER, his blood pressures initially were in the systolics of 200s. He denies any language difficulties or new weakness or numbness of his extremities with this headache. In the emergency department, he had received labetalol 20 mg x2 as well as clonidine 0.1 mg x1, which did bring his blood pressures down into the 160s and for the migraine he had received 3 mg of IV hydromorphone, but continued to have significant headache. Today I note that he has received Zofran, his baseline dose of propranolol 80 mg three times daily, Dilaudid 1 mg and several doses over the last 24 hours, Compazine 10 mg, Depakote 1500 mg last night, but did not receive his dose this morning of 1000 mg and he is also on verapamil 240 mg. He reports all of the medications that he has received helped somewhat and sometimes but not consistently. He does feel that the Dilaudid and morphine have been the most helpful. He does not believe he has had MRI scan of his brain because he cannot get gadolinium. Neurology consultation was requested secondary to his intractable migraines. PAST MEDICAL HISTORY: Alport syndrome, ESRD on hemodialysis, hypertension, anemia of chronic disease, spontaneous pneumothorax, intractable migraine headaches on Botox. Of note, he last received Botox on 04/[address] Francis in Anesthesia. PAST SURGICAL HISTORY: Renal transplant in 2009 or 2010, AV fistula placement, PE catheter placement and removal. CURRENT MEDICATIONS: 1. Acetaminophen 650 q.6 p.r.n. 2. Hydralazine 10 mg IV q.4 p.r.n., last received at 8 a.m. this morning. 3. Melatonin 3 mg at bedtime p.r.n. 4. Zofran 4 mg IV q.6 p.r.n., last received around 8 a.m. this morning. 5. Tramadol 50 mg q.12 p.r.n. which has not been given. 6. Prilosec 20 mg daily. 7. Colace 200 mg twice daily 8. Lorazepam 2 mg q.6 p.r.n. anxiety, which has not been given. 9. Methadone 5 mg q.12 p.r.n. 10. Promethazine 25 mg q.6 p.r.n., which has not been given. 11. Sevelamer. 12. Propranolol 80 mg t.i.d. 13. Hydromorphone 1 mg IV q.4 p.r.n. last given at noon. 14. Depakote 1500 mg at bedtime and 1000 mg in the morning, which was not given this morning secondary to his nausea. 15. Minoxidil 10 mg b.i.d. 16. Ropinirole 0.5 mg b.i.d. 17. Amlodipine 10 mg daily. 18. Verapamil 240 mg daily. ALLERGIES: ASPIRIN, GABAPENTIN and HYDROCODONE. FAMILY HISTORY: Mother reports a past history of migraine headaches, but then said she was diagnosed with multiple sclerosis. She also is a carrier for the gene mutation causing Alport syndrome. Father has hypertension. SOCIAL HISTORY: He denies alcohol, tobacco or drug use. REVIEW OF SYSTEMS: He denies any recent head trauma or neck trauma. He has had no recent systemic illnesses. PHYSICAL EXAM: Vital Signs: Temperature 98.4, blood pressure 135/64, heart rate 75, and oxygen saturation 98% on room air. His blood pressure this morning at 8 a.m. was 180/102, but other than that his blood pressures had been relatively reasonably controlled aside from a reading of 178/107 at noon yesterday. On general examination, he is no acute distress but is lying in his bed initially asleep when I entered the room. The room is darkened. He appears mildly irritated probably secondary to pain. He has a notable AV fistula in the left arm. He has no lower extremity edema. His heart is in a regular rate and rhythm with no murmurs, rubs or gallops. The lungs are clear to auscultation bilaterally. His skin is intact. On neurologic examination, he is fully awake, alert, and oriented. Speech is fluent without dysarthria or aphasia. On cranial nerve exam, pupils are equal, round and reactive from 3 to 2 mm bilaterally. Versions are full without nystagmus. Mosqueda are full to confrontation. His fundi appeared benign to me, but the right was difficult to fully visualize. Facial sensation and the musculature is full and symmetric. He is hard of hearing. The palate elevates symmetrically and the tongue is midline. On motor examination, he has normal bulk and tone in the upper and lower extremities. Strength is full proximally and distally with no pronator drift. Sensation is intact to light touch and pinprick in the upper and lower extremities. Reflexes are 2+ in the upper extremities, trace at the knees and absent ankle jerks with downgoing toes bilaterally. Ewlakh-gj-zoow and heel to vazquez is intact without ataxia. I did not ask him to ambulate. DIAGNOSTIC STUDIES/LAB DATA: His CBC was reviewed and is not suggestive of infection. He has anemia, which is stable on hematocrit of 35, hemoglobin 12.1. His BMP on 05/31 was notable for a creatinine of 13.42, potassium of 10.6 , total bilirubin of 1.2, AST of 8, normal ALT and alkaline phosphatase. I reviewed a brain CT from August 2016, which was a normal study. IMPRESSION: A 32-year-old man with history of end-stage renal disease on hemodialysis secondary to Alport syndrome as well as intractable migraine headaches who receives Botox injections admitted with intractable migraine pain. He also had hypertensive crisis on his admission, which could be contributing somewhat to his refractory headache but more recently his blood pressures have been better controlled and he continues with intractable migraine pain. In reviewing his most recent ER visits, it appears that he has received Benadryl and Reglan and this perhaps had a better response and so I have discontinued his Compazine and Phenergan and ordered metoclopramide 10 mg IV q.6 as well as diphenhydramine 25 mg IV q.6. Also, I would like to give him a gram of valproic acid IV since he missed his dose of Depakote this morning. I have also asked Maggi Menard NP to check with Dr. Arana that there be no objection to giving him some magnesium as well. Since he has had not had more advanced brain imaging, I would like to get MRI of the brain without contrast as well. [id number]/[facility] #: [id number] MTDD
--- NOTE | 2017-06-02 21:40 | RAD ---
HISTORY: Intractable migraines. COMPARISONS: Similar MRI of the brain dated June 04, 2015 that did not reveal any abnormalities TECHNIQUE: The following sequences were obtained of the head: Sagittal T1-weighted images, axial T2-weighted images, axial FLAIR images, axial susceptibility weighted images, axial T1-weighted images. Additionally, axial diffusion-weighted images were obtained with calculated apparent diffusion coefficients.. FINDINGS: HEMORRHAGE/INFARCT: There is no hemorrhage or acute infarct. MASSES/SHIFT: There is no mass or shift. EXTRA-AXIAL SPACES/MENINGES: There are no extra-axial fluid collections. SULCI AND VENTRICLES: The sulci and ventricles are normal in size and position for the patient's stated age. CEREBRUM: There are no focal parenchymal abnormalities. BRAINSTEM: There are no focal parenchymal abnormalities. CEREBELLUM: There are no focal parenchymal abnormalities. The cerebellar tonsils are normal in size and position. SELLA: The sella is normal. PINEAL: The pineal region is clear. CP ANGLE/TEMPORAL BONES: The labyrinthine structures are grossly normal. VESSELS: Normal flow-voids are noted within the visualized vertebral vasculature. DIFFUSION ABNORMALITIES: There are no diffusion abnormalities. PARANASAL SINUSES/MASTOIDS: There is mild mucosal thickening of the left maxillary sinus. ORBITS: The orbits are unremarkable. BONES AND SOFT TISSUE: No bone or soft tissue abnormalities are noted. IMPRESSION: MILD MUCOSAL THICKENING OF THE LEFT MAXILLARY SINUS IN THIS OTHERWISE NORMAL MRI OF THE BRAIN.
[2017-06-03] MEDS: Omeprazole CAP* 20 MG PO SCH (05:39)
[2017-06-03 06:39] LABS: ABS Basophils 0.1 10^3/ul (0-0.2); ABS Eosinophils 0.2 10^3/ul (0-0.6); ABS Lymphocytes 1.4 10^3/ul (1.0-4.8); ABS Monocytes 0.3 10^3/ul (0-0.8); ABS Neutrophils 1.7 10^3/ul (1.5-7.7); ABS Nucleated RBC 0 10^3/ul; Eosinophil % 5.4 % (0-6); Hematocrit 34 % (42-52); Hemoglobin 11.6 g/dl (14.0-18.0); Lymphocyte % 38.3 % (25-47); Mean Corpuscular HGB Conc 35 g/dl (31-36); Mean Corpuscular Hemoglobin 30 pg (27-31); Mean Corpuscular Volume 87 fL (80-94); Nucleated Red Blood Cells % 0.1; Platelet Count 204 10^3/ul (150-450); Red Blood Count 3.86 10^6/ul (4.0-5.4); Red Cell Distribution Width 14 % (10.5-15); White Blood Count 3.8 10^3/ul (3.5-10.8)
[2017-06-03 07:03] LABS: EGFR Non-African American 4.7 (>60)
[2017-06-03] MEDS: Docusate CAP* 100 MG PO SCH (08:43)
[2017-06-03] MEDS: Propranolol TAB* 80 MG PO SCH ×2 (09:18→15:05)
[2017-06-03] MEDS: Ropinirole TAB* 0.5 MG TAB PO SCH (09:20)
[2017-06-03] MEDS ORDERED: Heparin DIALYSIS ONLY(*) 1,000 UNITS/ML VIAL DIALYSIS ONE (12:00)
[2017-06-03] MEDS: HYDROmorphone INJ* 2 MG/ML CARPUJECT SYRINGE IV SLOW PU PRN (13:27)
[2017-06-03] MEDS: Divalproex ER TAB(*) 500 MG PO SCH (15:03)
[2017-06-03] MEDS: Verapamil SR TAB* 240 MG PO SCH (15:05)
[2017-06-03] MEDS: amLODIPine TAB* 5 MG PO SCH (15:05)
[2017-06-03] MEDS: MinoXIDil TAB* 10 MG TAB PO SCH (15:06)
[2017-06-03 15:47] VITALS: BP 138/55
--- NOTE | 2017-06-04 14:06 | DS ---
CC: Dr. Frey * DISCHARGE SUMMARY: DATE OF ADMISSION: 06/01/17. DATE OF DISCHARGE: 06/03/17. PRIMARY CARE PROVIDER: Dr. Frey. ATTENDING PHYSICIAN: Dr. Lynn Larry.* (DICTATED BY LEONOR ROSA NP) HOSPITAL COURSE: This is a 32-year-old male patient well known to our service. This young man has Alport syndrome and resulting renal failure. He is on hemodialysis. He has a history of peritoneal dialysis and failed kidney transplant. He presented to the emergency department with intractable migraine headache. He has had this headaches before in the past. They were unable to break the headache in the emergency department. He also had very high blood pressure, the systolic pressure was in the 200s, diastolic in the low 100s. He has also had significant nausea and vomiting. The patient was initially admitted for observation for intractable headache. He was given IV fluids, judiciously given his history of hemodialysis. He was Dilaudid, antiemetics, and various blood pressure medications to try to control his blood pressure. He did receive his dialysis on Thursday and on Thursday, today. The headache increased in severity to the point where he was unable to tolerate any kind of activity or movement or light. We had Neurology see him, Dr. Laine Vallejo evaluated him on the , adjusted some medications, gave the patient IV Depakote and eventually his headache subsided. Today, he was seen in his room after dialysis, states the pain is under control. He is able to eat. He is feeling well. He wants to go home and he will follow up outpatient with his primary and with Dr. Vallejo as needed. PHYSICAL EXAMINATION: On physical exam today, the patient is awake and alert, in no acute distress. Vital Signs: Currently blood pressure 138/55, heart rate 85, temperature 98.2, respiratory rate 15; satting at 98% on room air. HEENT: The patient is atraumatic and normocephalic. PERRLA with nonicteric sclerae. Neck: Supple. Nontender. No JVD noted. No carotid bruits auscultated. Cardiovascular: S1, S2 present. He has a very audible murmur, likely 5/6 grade murmur with a thrill, but his rate and rhythm are currently regular. Lungs: Clear bilaterally to auscultation with no wheezing, rhonchi, or rales. Abdomen: Soft, nontender and nondistended. No organomegaly appreciated. He has positive bowel sounds in all 4 quadrants. : Deferred. Musculoskeletal: There is no clubbing, no cyanosis, and no edema. He has +2 distal pulses palpable. He has palpable thrill and bruit over his dialysis fistula in his left upper extremity. Neurologically, he is grossly intact. No focal deficits. Psychiatric: He is cooperative and appropriate. LABORATORY DATA: WBCs 3.8, RBCs 3.86, hemoglobin 11.6, hematocrit 34, platelets 204. Sodium 136, potassium 4.7, chloride 94, carbon dioxide 29, anion gap 13. Creatinine 12.5. BUN 28. GFR 4.7. Glucose 88. Calcium 10.4, total bilirubin 1.20, AST 7, ALT 7, alk phos 53, albumin 4.0. DISCHARGE DIAGNOSES: 1. Intractable migraine headache, now resolved. 2. History of Alport syndrome with chronic hemodialysis. 3. Anemia of chronic disease. 4. Hearing loss. 5. Secondary hypertension. PLAN: The patient is going to be discharged to home to the care of his mother. The patient states he does not need any refills on his medications. He will be placed back on his home medications, which are: 1. Ativan 1 mg q. 6 hours p.r.n. 2. Verapamil 240 mg daily. 3. Requip 0.5 mg 3 times a day. 4. Propranolol 80 mg 3 times a day. 5. Minoxidil 10 mg 2 times a day. 6. Promethazine 25 mg q. 6 hours as needed. 7. Veltassa 8.4 g p.o. as directed. 8. Zofran 4 mg q. 6 hours as needed. 9. Omeprazole 40 mg daily. 10. Kayexalate 15 g as needed. 11. Renvela 1600 mg with snacks; 4000 mg 3 times a day with meals. 12. Senokot 1 tablet daily. 13. Amlodipine 10 mg daily. 14. Methadone 5 mg q. 12 hours as needed. 15. Depakote 1000 mg in the morning and 1500 mg in the evening. Again, the patient was discharged to home in stable condition. All questions were answered. The patient stated his understanding of his followup, his medications at the time of discharge. LEONOR ROSA, MERCHANDISE SHOPPER [id number]/[facility] #: [id number] [facility]ICAL CENTERSaige
== END 2017-06-03 16:25 | disposition home or self-care (01) | DRG 54 ==
LOC: ED 18:30 → MED 06-01 05:33 → OBSVTOIN 06-02 15:45
PROVIDERS: ADMIT Hospitalist; ATTEND Hospitalist
PROC: 5A1D70Z Performance of Urinary Filtration, Intermittent, Less than 6 Hours Per Day (ICD-10-PCS; principal; 2017-06-01)
PROC: 5A1D70Z Performance of Urinary Filtration, Intermittent, Less than 6 Hours Per Day (ICD-10-PCS; 2017-06-03)
DX: G43.919 Migraine, unspecified, intractable, without status migrainosus (principal); N18.6 End stage renal disease; I13.2 Hypertensive heart and chronic kidney disease with heart failure and with stage 5 chronic kidney disease, or end stage renal disease; T86.12 Kidney transplant failure; I16.9 Hypertensive crisis, unspecified; Q87.81 Alport syndrome; H53.149 Visual discomfort, unspecified; I50.9 Heart failure, unspecified; G89.29 Other chronic pain; M54.9 Dorsalgia, unspecified; H91.93 Unspecified hearing loss, bilateral; G25.81 Restless legs syndrome; F41.9 Anxiety disorder, unspecified; F32.9 Major depressive disorder, single episode, unspecified; I15.9 Secondary hypertension, unspecified; D63.1 Anemia in chronic kidney disease; Z90.5 Acquired absence of kidney; Z84.81 Family history of carrier of genetic disease; Z87.891 Personal history of nicotine dependence; Z99.2 Dependence on renal dialysis; Z88.8 Allergy status to other drugs, medicaments and biological substances; Z86.711 Personal history of pulmonary embolism; Z88.5 Allergy status to narcotic agent; Z82.49 Family history of ischemic heart disease and other diseases of the circulatory system
CPT/HCPCS: 36415; 70551; 80053; 83735; 85025; 90935; 93005; 99285; A9270-GY; G0257; G0378; J0360; J0780; J1170; J1644; J2405; J2550

== ENCOUNTER 2017-06-14 00:36 | Inpatient (IN) | payer BC ==
[2017-06-14 01:44] LABS: ABS Basophils 0.1 10^3/ul (0-0.2); ABS Eosinophils 0.2 10^3/ul (0-0.6); ABS Lymphocytes 1.2 10^3/ul (1.0-4.8); ABS Monocytes 0.5 10^3/ul (0-0.8); ABS Neutrophils 3.1 10^3/ul (1.5-7.7); ABS Nucleated RBC 0 10^3/ul; Eosinophil % 3.2 % (0-6); Hematocrit 25 % (42-52); Hemoglobin 8.3 g/dl (14.0-18.0); Lymphocyte % 23.5 % (25-47); Mean Corpuscular HGB Conc 34 g/dl (31-36); Mean Corpuscular Hemoglobin 30 pg (27-31); Mean Corpuscular Volume 89 fL (80-94); Mean Platelet Volume 8.4 um3 (7.4-10.4); Nucleated Red Blood Cells % 0.2; Platelet Count 175 10^3/ul (150-450); Red Cell Distribution Width 14 % (10.5-15)
[2017-06-14] MEDS ORDERED: Metoclopramide IV* 5 MG/ML 2 ML VIAL IV SLOW PU ONE (01:46)
[2017-06-14] MEDS ORDERED: Morphine INJ* 4 MG/ML 1 ML SYRINGE (NEW SYRINGE VERSION) IV ONE (01:46)
[2017-06-14 01:48] LABS: INR 0.96 (0.77-1.02)
[2017-06-14 01:49] LABS: EGFR Non-African American 5.2 (>60)
[2017-06-14] MEDS ORDERED: Morphine VIAL* 4 MG/ML VIAL (1 ml vial) IV ONE (01:49)
[2017-06-14] MEDS ORDERED: Nitroglycerin 2% OINT* 1 GM PAK TOPICAL ONE (02:03)
[2017-06-14] MEDS ORDERED: Senna TAB PO PRN (03:48)
[2017-06-14] MEDS ORDERED: LORazepam TAB(*) 1 MG PO PRN (03:48)
[2017-06-14] MEDS ORDERED: Ondansetron ODT TAB* 4 MG PO PRN (03:48)
[2017-06-14] MEDS ORDERED: Methadone TAB* 5 MG PO PRN (03:48)
--- NOTE | 2017-06-14 03:54 | ED ---
Frank Alejandro Tecjoon, scribed for Elfar, Abdul, MD on 06/14/17 at 0121 . Shortness of Breath - HPI Summary HPI Summary: This patient is a 32 year old male presenting to [facility] accompanied by with a chief complaint of SOB since today, worsening this evening. Patient is an outpatient dialysis patient and has dialysis MWF. Patient states he missed a few treatments and is currently in fluid overload. The pain is rated 7/10 in severity. Symptoms aggravated by nothing. Symptoms alleviated by nothing. The patient treated the sx with nothing [employer]. Patient additionally reports nausea, headache. Patient denies vomiting. Patient has a hx of neuropathy and has shakes /bouts of pain during exam. - History of Current Complaint Chief Complaint: EDShortnessOfBreath Time Seen by Provider: 06/14/17 01:00 Hx Obtained From: Patient Onset/Duration: Still Present Current Severity: Moderate Dyspnea At: Rest Aggrevating Factors: Nothing Alleviating Factors: Nothing Associated Signs & Symptoms: Negative - vomiting - Allergy/Home Medications Allergies/Adverse Reactions: Allergies Allergy/AdvReac Type Severity Reaction Status Date / Time aspirin Allergy Unknown Verified 06/14/17 00:46 Reaction Details gabapentin Allergy twitching, Verified 06/14/17 00:46 double vision hydrocodone Allergy twitching Verified 06/14/17 00:46 PMH/Surg Hx/FS Hx/Imm Hx Previously Healthy: No Endocrine/Hematology History: Reports: Hx Anticoagulant Therapy, Hx Blood Transfusions - February 2016, Hx Anemia Denies: Hx Blood Disorders, Hx Bone Marrow Disease, Hx Diabetes, Hx Systemic Lupus Erythematosus, Hx Sickle Cell Disease, Hx Thyroid Disease, Hx Unexplained Bleeding, Other Endocrine/Hematological Disorders Cardiovascular History: Reports: Hx Congestive Heart Failure - Probable 09/18/16 , Hx Embolism - PE, Hx Hypertension - ON MEDICATION FOR, Other Cardiovascular Problems/Disorders - RT.KIDNEY TRANSPLANT FAILED AND REMOVED/DIALYSIS Denies: Hx Aneurysm, Hx Angina, Hx Angioplasty, Hx Auto Implanted Cardiovert Defib, Hx Cardiac Arrest, Hx Cardiomegaly, Hx Congenital Heart Disease, Hx Coronary Artery Disease, Hx Deep Vein Thrombosis, Hx Hypercholesterolemia, Hx Hypotension, Hx Pacemaker/ICD, Hx Peripheral Vascular Disease, Hx Rheumatic Fever, Hx Syncope, Hx Valvular Heart Disease Respiratory History: Reports: Hx Pulmonary Edema - Flash pulmonary edema resulting in CPR 09/02/16, Other Respiratory Problems/Disorders - "left lung repaired for pneumothorax in 2006 Denies: Hx Asthma, Hx Chronic Bronchitis, Hx Chronic Obstructive Pulmonary Disease (COPD), Hx Cystic Fibrosis, Hx Lung Cancer, Hx Pleural Effusion, Hx Pneumonia, Hx Pulmonary Embolism, Hx Seasonal Allergies, Hx Sleep Apnea GI History: Denies: Hx Cirrhosis, Hx Crohn's Disease, Hx Diverticulosis, Hx Gall Bladder Disease, Hx Gastroesophageal Reflux Disease, Hx Gastrointestinal Bleed, Hx Hiatal Hernia, Hx Irritable Bowel, Hx Jaundice, Hx Obstructive Bowel, Hx Ileostomy, Hx Pyloric Stenosis, Hx Ulcer, Other GI Disorders History: Reports: Hx Acute Renal Failure, Hx Chronic Renal Failure, Hx Dialysis, Hx Renal Disease - TRANSPLANT - RT, dialysis every Mon., Wed., Thu., Other Problems/Disorders - DIALYSIS Denies: Hx Benign Prostatic Hyperplasia, Hx Kidney Infection, Hx Kidney Stones Musculoskeletal History: Reports: Hx Back Problems - chronic back pain Denies: Hx Arthritis, Hx Bursitis, Hx Congenital Bone Abnormalities, Hx Fibromyalgia, Hx Gout, Hx Orthopedic Injury, Hx Osteoporosis, Hx Scoliosis, Hx Tendonitis, Other Musculoskeletal History Sensory History: Reports: Hx Contacts or Glasses, Hx Deafness, Hx Hearing Problem - moderate hearing loss bilat ears, Other Sensory Impairments - Photophobia Denies: Hx Cataracts, Hx Eye Injury, Hx Eye Prosthesis, Hx Glaucoma, Hx Legally Blind, Hx Macular Degeneration, Hx Vision Problem, Hx Hearing Aid Opthamlomology History: Reports: Hx Contacts or Glasses, Other Sensory Impairments - Photophobia Denies: Hx Cataracts, Hx Eye Injury, Hx Eye Prosthesis, Hx Glaucoma, Hx Legally Blind, Hx Macular Degeneration, Hx Vision Problem Neurological History: Reports: Hx Headaches, Hx Migraine - 1-2 PER MONTH, Hx Seizures - September 2016, Other Neuro Impairments/Disorders - Restless leg syndrome Denies: Hx Dementia, Hx Developmental Delay, Hx Nerve Disease, Hx Spinal Cord Injury, Hx Transient Ischemic Attacks (TIA) Psychiatric History: Reports: Hx Anxiety - NEW-STATES MD IS AWARE, Hx Depression - NEW-STATES MD IS AWARE Denies: Hx Attention Deficit Hyperactivity Disorder, Hx Eating Disorder, Hx Panic Disorder, Hx Post Traumatic Stress Disorder, Hx Inpatient Treatment, Hx Community Mental Health Tx, Hx Schizophrenia, Hx Bipolar Disorder, Hx Suicide Attempt, Hx of Violent Episodes Against Others, Hx Substance Abuse, Other Psychiatric Issues/Disorders - Cancer History Hx Chemotherapy: No Hx Radiation Therapy: No Hx Palliative Cancer Treatment: No - Surgical History Surgery Procedure, Year, and Place: 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[place], [place]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; LEFT LUNG SX FOR REPAIR; LEFT ARM FISTULA FOR DIALISYS 2015, RIGHT CHEST WALL CATH FOR DIALYSIS; RIGHT NEPHRECTOMY - kidney rejected, 2016 Hx Anesthesia Reactions: No - Immunization History Date of Tetanus Vaccine: Unk Date of Influenza Vaccine: Fall 2014 Infectious Disease History: No Infectious Disease History: Denies: Hx Hepatitis, Hx of Known/Suspected MRSA, Hx Shingles, Hx Tuberculosis, History Other Infectious Disease, Traveled Outside the [place] in Last 30 Days - Family History Known Family History: Positive: Other - Mother carrier of alport disease gene Negative: Blood Disorder - Social History Lives: With Family Alcohol Use: None Alcohol Amount: Once per month before getting sick in February Hx Substance Use: No Substance Use Type: Reports: None Hx Tobacco Use: Yes Smoking Status (MU): Former Smoker Type: Cigarettes Amount Used/How Often: 1 PPD X 4 YEARS Have You Smoked in the Last Year: No Review of Systems Negative: Fever Positive: Shortness Of Breath Positive: Nausea. Negative: Vomiting Positive: Headache All Other Systems Reviewed And Are Negative: Yes Physical Exam - Summary Physical Exam Summary: VITAL SIGNS: Reviewed. GENERAL: Patient is a well-developed and nourished male who is lying comfortable in the stretcher. Patient has mild respiratory distress. HEAD AND FACE: No signs of trauma. No ecchymosis, hematomas or skull depressions. No sinus tenderness. EYES: PERRLA, EOMI x 2, No injected conjunctiva, no nystagmus. EARS: Hearing grossly intact. Ear canals and tympanic membranes are within normal limits. MOUTH: Oropharynx within normal limits. NECK: JVD bilaterally CHEST: Symmetric, no tenderness at palpation LUNGS: Decreased breath sounds bilaterally CVS: Regular rate and rhythm, S1 and S2 present, no murmurs or gallops appreciated. ABDOMEN: Soft, non-tender. No signs of distention. No rebound no guarding, and no masses palpated. Bowel sounds are normal. EXTREMITIES: Dialysis shunt over left upper arm with good thrill NEURO: Alert and oriented x 3. No acute neurological deficits. Speech is normal and follows commands. SKIN: Dry and warm Triage Information Reviewed: Yes Vital Signs On Initial Exam: Initial Vitals Temp Pulse Resp BP Pulse Ox 98.7 F 86 16 181/120 91 04/08/18 00:42 06/14/17 00:42 06/14/17 00:42 06/14/17 00:42 06/14/17 00:42 Vital Signs Reviewed: Yes Diagnostics - Vital Signs Vital Signs Temp Pulse Resp BP Pulse Ox 06/14/17 00:42 98.7 F 86 16 181/120 91 - Laboratory Result Diagrams: 06/14/17 01:11 06/14/17 01:11 Lab Statement: Any lab studies that have been ordered have been reviewed, and results considered in the medical decision making process. - Radiology CXR Xray Interpretation: Positive (See Comments) - CXR reveals, per radiologist, IMPRESSION: Bilateral pulmonary congestion. ED physician has reviewed this radiology report. Radiology Interpretation Completed By: Radiologist - EKG 015 Cardiac Rate: NL EKG Rhythm: Sinus Rhythm EKG Interpretation: NSR (87 BPM), Normal axis. Normal interval. No signs of hyperkalemia Course/Dx - Course Course Of Treatment: This patient is a 32 year old male presenting to [facility] accompanied by with a chief complaint of SOB since today, worsening this evening. Patient is an outpatient dialysis patient and has dialysis MWF. Patient states he missed a few treatments and is currently in fluid overload. An EKG, taken 156, reveals NSR (87 BPM), Normal axis. Normal interval. No signs of hyperkalemia. CXR reveals, per radiologist, IMPRESSION: Bilateral pulmonary congestion. ED physician has reviewed this radiology report. Bloodwork Obtained. Test results with no significant abnormalities. In the ED course the patient was given Morphine, NTG, metoclopramide. We discussed patient care with Dr. Arana (Nephrology) and they recommended admitting the patient and that he would dialyze the patient in the morning. We discussed patient care with Dr. Solis (Hospitalist) at 0220 and they agreed to admit the patient. Patient will be admitted with a dx of renal insufficiency, volume overload. The patient is agreeable with this plan. - Diagnoses Provider Diagnoses: Renal insufficiency, Volume overload - Physician Notifications Discussed Care of Patient With: Jose De Jesus Arana - Nephrology Time Discussed With Above Provider: 02:12 - We discussed patient care with Dr. Arana (Nephrology) and they recommended admitting the patient and that he would dialyze the patient in the morning. Instructed by Provider To: Admit As Inpatient - We discussed patient care with Dr. Solis (Hospitalist) at 0220 and they agreed to admit the patient. Discharge - Sign-Out/Discharge Documenting (check all that apply): Discharge - admitted - Discharge Plan Condition: Stable Disposition: ADMITTED TO [facility] Referrals: Christa Frey MD [Primary Care Provider] - The documentation as recorded by the Frank florence Tecjoon accurately reflects the service I personally performed and the decisions made by Jared haney Abdul, MD.
[2017-06-14] MEDS ORDERED: Sevelamer TAB* 800 MG PO PRN (04:00)
[2017-06-14] MEDS ORDERED: Patiromer POWDER* 8.4 GM PAK PO SCH (04:00)
[2017-06-14] MEDS: Morphine VIAL* 4 MG/ML VIAL (1 ml vial) IV PRN ×2 (05:31→08:41)
[2017-06-14] MEDS: Metoclopramide IV* 5 MG/ML 2 ML VIAL IV PRN (05:36)
[2017-06-14] MEDS ORDERED: Omeprazole CAP* 20 MG PO SCH (07:30)
[2017-06-14] MEDS ORDERED: Furosemide IV* 10 MG/ML 10 ML VIAL (100 MG) IV ONE (07:52)
[2017-06-14] MEDS ORDERED: Furosemide IV* 10 MG/ML 10 ML VIAL (100 MG) ONE (07:58)
[2017-06-14] MEDS ORDERED: hydrALAZINE IV* 20 MG/ML VIAL ONE (07:58)
[2017-06-14] MEDS ORDERED: hydrALAZINE IV* 20 MG/ML VIAL IV SLOW PU ONE (08:00)
[2017-06-14] MEDS ORDERED: niCARdipine 0.1MG/ML IVPREMIX* 20 MG/200 ML BAG ONE (08:13)
[2017-06-14] MEDS: niCARdipine 0.1MG/ML IVPREMIX* 20 MG/200 ML BAG IV SCH ×2 (08:14→12:28)
[2017-06-14] MEDS: Sevelamer TAB* 800 MG PO SCH ×4 (08:22→17:43)
[2017-06-14] MEDS ORDERED: amLODIPine TAB* 5 MG PO SCH (09:00)
[2017-06-14] MEDS ORDERED: Verapamil SR TAB* 240 MG PO SCH (09:00)
[2017-06-14] MEDS ORDERED: Divalproex ER TAB(*) 500 MG PO SCH ×2 (09:00→18:00)
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
[2017-06-14] MEDS ORDERED: Ondansetron INJ* 2 MG/ML VIAL ONE (11:24)
[2017-06-14] MEDS ORDERED: Propofol* 100 ML ONE (11:41)
[2017-06-14] MEDS ORDERED: Propofol* 10 MG/ML 20 ML BTL IV PUSH ONE (11:43)
[2017-06-14] MEDS ORDERED: fentaNYL* 50 MCG/ML 5 ML VIAL (250 MCG VIAL) ONE (11:43)
[2017-06-14] MEDS ORDERED: Cisatracurium* 2 MG/ML MDV 5 ML ONE ×2 (11:43→11:44)
--- NOTE | 2017-06-14 11:43 | RAD ---
INDICATION: Difficulty breathing COMPARISON: Most recent comparison chest x-rays dated December 22, 2016 TECHNIQUE: Single AP portable view of the chest was obtained. FINDINGS: Image quality is compromised due to the relative inferiority of a portable chest x-ray. There is a mild degree of cardiomegaly unchanged from the previous chest x-ray. There is mild vascular engorgement. The lungs are otherwise grossly clear. There is improved aeration of the right lung relative to the most recent chest x-ray when there was density and air bronchograms. Visualized bones are normal for the patient's age. IMPRESSION: Chest x-ray findings are most consistent with mild cardiogenic pulmonary edema. The aeration is improved when compared to the most recent chest x-ray dated December 22, 2016.
[2017-06-14] MEDS ORDERED: Epoetin Alfa* 3,000 UNITS/ML VIAL IV ONE (12:00)
[2017-06-14] MEDS ORDERED: Epoetin Alfa* 2,000 UNITS/ML VIAL IV ONE (12:00)
[2017-06-14] MEDS ORDERED: Heparin DIALYSIS ONLY(*) 1,000 UNITS/ML VIAL DIALYSIS ONE (12:00)
--- NOTE | 2017-06-14 12:07 | PN ---
Progress Note - Progress Note Date of Service: 06/14/17 Note: CRITICAL CARE MEDICINE PROCEDURE NOTE DATE: 06/14/16 TIME: 1150 SERVICE: Critical Care Medicine LOCATION OF PROCEDURE: ICU PROCEDURE: Endotracheal intubation PROCEDURALIST: Dr. Payne Consent obtain: Yes, vebally from pt, but procedure performed emergently Time out held: Not indicated INDICATION: Acute respiratory failure secondary to pulm edema PROCEDURE: Oxygenation maintained and vitals monitored. Patient in supine position. Pre-medication with fentanyl 200mcg / propofol 150mg total. Glidescope #3 inserted with Grade 2 view obtained. First attempt with difficulty circumventing aretnoids and pt with frothy pulm edema cough making view difficult. Re-adjusted view and 8.0 endotracheal tube inserted to 24cm lip. Significant frothy pulm edema shot from ett. Good chest rise with breath sounds appreciated in bilaterally lung argueta. EtCO2 + color change. Sats dropped into low 80s and returned in adequate time. Portable chest x-ray pending. Patient otherwise tolerated well. Farhat Payne, DO
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
[2017-06-14] MEDS ORDERED: fentaNYL* 50 MCG/ML 2 ML VIAL (100 MCG VIAL) IV SLOW PU ONE (12:31)
[2017-06-14] MEDS ORDERED: fentaNYL* 50 MCG/ML 2 ML VIAL (100 MCG VIAL) ONE (12:32)
[2017-06-14] MEDS ORDERED: LORazepam INJ* 2 MG/ML 1 ML VIAL ONE (13:44)
[2017-06-14] MEDS ORDERED: Ziprasidone IM INJ* 20 MG/ML VIAL IM PRN (13:44)
[2017-06-14] MEDS: LORazepam INJ* 2 MG/ML 1 ML VIAL IV PUSH PRN (13:47)
[2017-06-14] MEDS: Ropinirole TAB* 0.5 MG TAB PO SCH ×2 (13:48→21:52)
[2017-06-14] MEDS: Propranolol TAB* 80 MG PO SCH ×3 (13:48→21:52)
[2017-06-14] MEDS: Chlorhexidine MOUTHWASH 0.12%* 15 ML UDC TOPICAL SCH ×3 (13:50→21:52)
--- NOTE | 2017-06-14 14:18 | RAD ---
INDICATION: Status post intubation COMPARISON: Chest x-ray dated June 14, 2017 acquired at 0127 hours TECHNIQUE: Single AP portable view of the chest was obtained after intubation at 1249 hours. FINDINGS: Image quality is compromised due to the relative inferiority of a portable chest x-ray. There is been interval placement of an endotracheal tube approximately 5 cm above the mercedes. The heart and mediastinum are normal in size and contour. There has been interval development of patchy densities obscuring the bilateral lower lungs and to a lesser extent the upper lung argueta as well. Densities obscure the diaphragm bilaterally. IMPRESSION: 1. Appropriate position of endotracheal tube. 2. Interval development of patchy densities obscuring the bilateral lower lungs. The onset of this appearance is indicative of ARDS, pulmonary edema and drug toxicity are also considered.
[2017-06-14] MEDS: Propofol* 100 ML IV SCH ×3 (14:22→20:19)
[2017-06-14] MEDS: fentaNYL* 50 MCG/ML 2 ML VIAL (100 MCG VIAL) IV SLOW PU PRN (14:54)
--- NOTE | 2017-06-14 16:18 | RAD ---
INDICATION: Nasogastric tube placement COMPARISON: Most recent comparison chest x-ray was acquired on the same date at 1249 hours TECHNIQUE: Single AP portable view of the chest was obtained at 1422 hours. FINDINGS: Image quality is compromised due to the relative inferiority of a portable chest x-ray. The previously placed endotracheal tube remains appropriately positioned. There is been interval placement of a gastric tube with the tip terminating overlying the gastric fundus. There is been interval decrease in the degree and density of the patchy densities overlying the bilateral lungs. There is reduction in the degree of costophrenic angle blunting. IMPRESSION: 1. Interval placement of a gastric tube with the tip terminating over the gastric fundus. 2. Interval decrease in the appearance of bilateral pulmonary densities since the chest x-ray acquired at 1249 hours.
[2017-06-14] MEDS: Valproic Acid LIQ(*) 250 MG/5 ML UDC G TUBE SCH ×2 (17:31→21:52)
[2017-06-14] MEDS: MinoXIDil TAB* 10 MG TAB PO SCH ×2 (17:31→21:53)
[2017-06-14] MEDS: Verapamil TAB* 80 MG NG TUBE SCH ×2 (17:37→21:53)
[2017-06-14] MEDS ORDERED: Zosyn per Pharmacy* NOTE FOLLOW UP SCH (20:00)
[2017-06-14] MEDS ORDERED: Piperacillin/Tazobac ADVAN(*) 3.375 GM in NS 0.9% 100 ML* 100 ML IVPB ONE (20:00)
[2017-06-14] MEDS: Heparin VIAL(*) 5000 UNITS/ML VIAL (FIVE THOUSAND) SUBCUT SCH (21:53)
[2017-06-15] MEDS: Propofol* 100 ML IV SCH ×6 (00:16→23:56)
[2017-06-15] MEDS: Chlorhexidine MOUTHWASH 0.12%* 15 ML UDC TOPICAL SCH ×6 (01:10→21:14)
[2017-06-15] MEDS: Heparin VIAL(*) 5000 UNITS/ML VIAL (FIVE THOUSAND) SUBCUT SCH ×3 (05:59→21:12)
[2017-06-15] MEDS: fentaNYL* 50 MCG/ML 2 ML VIAL (100 MCG VIAL) IV SLOW PU PRN ×3 (06:08→19:43)
[2017-06-15 06:37] LABS: Hematocrit 29 % (42-52); Hemoglobin 9.5 g/dl (14.0-18.0); Mean Corpuscular HGB Conc 33 g/dl (31-36); Mean Corpuscular Hemoglobin 30 pg (27-31); Mean Corpuscular Volume 89 fL (80-94); Mean Platelet Volume 8.2 um3 (7.4-10.4); Platelet Count 235 10^3/ul (150-450); Red Blood Count 3.22 10^6/ul (4.0-5.4); Red Cell Distribution Width 15 % (10.5-15); White Blood Count 6.2 10^3/ul (3.5-10.8)
[2017-06-15 06:53] LABS: EGFR Non-African American 7.4 (>60)
[2017-06-15] MEDS: Sevelamer TAB* 800 MG PO SCH ×3 (07:54→17:24)
[2017-06-15] MEDS: Valproic Acid LIQ(*) 250 MG/5 ML UDC G TUBE SCH ×3 (07:55→21:13)
[2017-06-15] MEDS: Lansoprazole susp Kit 3 MG/ML (30 MG = 10 ML) G TUBE SCH (07:56)
[2017-06-15] MEDS: MinoXIDil TAB* 10 MG TAB PO SCH ×2 (07:57→21:14)
[2017-06-15] MEDS: Ropinirole TAB* 0.5 MG TAB PO SCH ×2 (07:57→21:13)
[2017-06-15] MEDS ORDERED: PIPERACILLIN IVPB SCH ×2 (08:00)
[2017-06-15] MEDS ORDERED: TAZOBACTAM IVPB SCH ×2 (08:00)
[2017-06-15] MEDS ORDERED: SODIUM CHLORIDE IVPB SCH ×2 (08:00)
[2017-06-15] MEDS: amLODIPine TAB* 5 MG G TUBE SCH (08:15)
[2017-06-15] MEDS: Verapamil TAB* 80 MG NG TUBE SCH ×3 (08:15→21:14)
[2017-06-15] MEDS: Propranolol TAB* 80 MG PO SCH ×3 (08:16→21:13)
--- NOTE | 2017-06-15 10:29 | PN ---
Progress Note - Progress Note Date of Service: 06/15/17 Note: CRITICAL CARE MEDICINE Date: 06/15/17 Time: 925 SUBJECTIVE: Patient seen and examined. mom at bedside. PHYSICAL EXAM: Vital Signs: Reviewed. BPs 100s Neurologic: awakens; comfortable. HEENT: pupils equal. Sclera anicteric. Trachea midline. Cardiovascular: S1 S2 Respiratory: rales bl less Abdomen: Soft. No r/g/r. Extremities: Warm. LABS: Reviewed. IMAGING: Reviewed. MEDICATIONS: Reviewed. ASSESSMENT: 32 yo male alports syndrome Acuyte hypoxic resp failure Acute pulm edema acute on chronic esrd needing urgent hd deconditioning PLAN: Neurologic: keep prop today - rass -2. prns Cardiovascular: bp ok. follow close through hd today and see if we need to back down on any of his outpt rx. Respiratory: remain on aprv today. needs more time. allow spont breaths. Gastrointestinal: inc tf today. reglan prn. sup Renal/Metabolic: HD today. see post equilibration if ready towards liberation tomorrow or if will be better served with HD wed as well prior to liberation. f/ u lytes Infectious Disease: no new infectious burden seen. no abx needs. one isolated temp. wbc benign. cxr pulm edema Hematology: Anemia of chronic dz. holding. hsq Endocrine: f/u Musculoskeletal: bedrest for now Psych/Social: pts mother updated Supportive and preventative care as ordered. SUP: on ppi VTE prophylaxis: heparin Disposition: ICU Code Status: Full Critical Care Time: 35min Farhat Payne DO
[2017-06-15] MEDS ORDERED: Heparin DIALYSIS ONLY(*) 1,000 UNITS/ML VIAL DIALYSIS ONE (12:00)
[2017-06-15] MEDS ORDERED: Epoetin Alfa* 2,000 UNITS/ML VIAL IV ONE (12:00)
[2017-06-15] MEDS ORDERED: Epoetin Alfa* 3,000 UNITS/ML VIAL IV ONE (12:00)
[2017-06-15] MEDS: LORazepam INJ* 2 MG/ML 1 ML VIAL IV PUSH PRN ×2 (12:09→19:42)
--- NOTE | 2017-06-15 16:46 | RAD ---
Indication: Confirm NG tube placement. End-stage renal disease. Comparison: June 14, 2017 Technique: Upright AP 1630 hours Report: Tip of the nasogastric tube at level of the gastric body approximating the greater curvature. Tip of the endotracheal tube is 5.5 cm above the Camille. Clear lungs and pleural spaces. Negative for pneumothorax. The heart, pulmonary vasculature, and mediastinal contours are unremarkable. Vascular stent along the course of the LEFT subclavian vessels as on the prior exam. IMPRESSION: Tip of the nasogastric tube at level of the gastric body approximating the greater curvature.
[2017-06-16] MEDS: Chlorhexidine MOUTHWASH 0.12%* 15 ML UDC TOPICAL SCH ×3 (01:28→08:43)
[2017-06-16] MEDS: Heparin VIAL(*) 5000 UNITS/ML VIAL (FIVE THOUSAND) SUBCUT SCH ×3 (05:18→22:49)
[2017-06-16] MEDS: Propofol* 100 ML IV SCH ×2 (05:18→10:21)
[2017-06-16 05:22] LABS: Hematocrit 25 % (42-52); Hemoglobin 9.2 g/dl (14.0-18.0); Mean Corpuscular HGB Conc 37 g/dl (31-36); Mean Corpuscular Hemoglobin 33 pg (27-31); Mean Corpuscular Volume 89 fL (80-94); Mean Platelet Volume 8.4 um3 (7.4-10.4); Platelet Count 288 10^3/ul (150-450); Red Blood Count 2.82 10^6/ul (4.0-5.4); Red Cell Distribution Width 15 % (10.5-15); White Blood Count 6.3 10^3/ul (3.5-10.8)
[2017-06-16 05:39] LABS: EGFR Non-African American 9.9 (>60)
[2017-06-16] MEDS: Sevelamer TAB* 800 MG PO SCH ×3 (08:20→17:07)
[2017-06-16] MEDS: LORazepam INJ* 2 MG/ML 1 ML VIAL IV PUSH PRN ×2 (08:41→11:23)
[2017-06-16] MEDS: Valproic Acid LIQ(*) 250 MG/5 ML UDC G TUBE SCH (08:43)
[2017-06-16] MEDS: amLODIPine TAB* 5 MG G TUBE SCH (08:43)
[2017-06-16] MEDS: Ropinirole TAB* 0.5 MG TAB PO SCH ×2 (08:44→21:15)
[2017-06-16] MEDS: Verapamil TAB* 80 MG NG TUBE SCH ×3 (08:44→21:15)
[2017-06-16] MEDS: Promethazine TAB* 25 MG PO PRN (08:44)
[2017-06-16] MEDS: MinoXIDil TAB* 10 MG TAB PO SCH ×2 (08:44→21:15)
[2017-06-16] MEDS: Propranolol TAB* 80 MG PO SCH ×3 (08:45→21:15)
[2017-06-16] MEDS: Lansoprazole susp Kit 3 MG/ML (30 MG = 10 ML) G TUBE SCH (08:46)
[2017-06-16] MEDS: fentaNYL* 50 MCG/ML 2 ML VIAL (100 MCG VIAL) IV SLOW PU PRN ×4 (09:55→22:49)
[2017-06-16] MEDS ORDERED: fentaNYL* 50 MCG/ML 2 ML VIAL (100 MCG VIAL) IV SLOW PU ONE (11:01)
--- NOTE | 2017-06-16 11:05 | PN ---
Progress Note - Progress Note Date of Service: 06/16/17 Note: CRITICAL CARE MEDICINE Date: 06/16/17 Time: 1030 SUBJECTIVE: Patient seen and examined. mom at bedside. PHYSICAL EXAM: Vital Signs: Reviewed. BPs 100s Neurologic: awakens; rass -2 HEENT: pupils equal. ngt. Sclera anicteric. Trachea midline. Cardiovascular: S1 S2 Respiratory: clear bl Abdomen: Soft. No r/g/r. Extremities: Warm. LABS: Reviewed. IMAGING: Reviewed. MEDICATIONS: Reviewed. ASSESSMENT: 32 yo male alports syndrome Acute hypoxic resp failure Acute pulm edema Acute on chronic esrd Deconditioning PLAN: Neurologic: hold prop. prns. fent. Cardiovascular: bp ok. will come up off prop. Respiratory: cpap with great mechanics on 12/11; cxr last pm pretty clean. liberate today. Gastrointestinal: po later today as able. reglan prn. sup Renal/Metabolic: HD stevan. lytes still needing equilibration. Infectious Disease: no abx needs currently. Hematology: Anemia of chronic dz. hsq Endocrine: stable Musculoskeletal: oob later Psych/Social: pts mother updated Supportive and preventative care as ordered. SUP: on ppi VTE prophylaxis: heparin Disposition: ICU Code Status: Full Critical Care Time: 35min Farhat Payne DO
[2017-06-16] MEDS: Divalproex ER TAB(*) 500 MG PO SCH (21:15)
[2017-06-17] MEDS: fentaNYL* 50 MCG/ML 2 ML VIAL (100 MCG VIAL) IV SLOW PU PRN ×3 (05:50→11:13)
[2017-06-17] MEDS: Heparin VIAL(*) 5000 UNITS/ML VIAL (FIVE THOUSAND) SUBCUT SCH ×3 (06:10→20:12)
[2017-06-17] MEDS: LORazepam INJ* 2 MG/ML 1 ML VIAL IV PUSH PRN ×2 (06:14→11:29)
[2017-06-17] MEDS: Propranolol TAB* 80 MG PO SCH ×3 (08:10→20:05)
[2017-06-17] MEDS: Verapamil TAB* 80 MG NG TUBE SCH ×3 (08:10→20:05)
[2017-06-17] MEDS: Sevelamer TAB* 800 MG PO SCH ×3 (08:10→19:23)
[2017-06-17] MEDS: MinoXIDil TAB* 10 MG TAB PO SCH ×2 (08:10→20:05)
[2017-06-17] MEDS: Divalproex ER TAB(*) 500 MG PO SCH ×2 (08:10→20:05)
[2017-06-17] MEDS: Ropinirole TAB* 0.5 MG TAB PO SCH ×2 (08:10→20:05)
[2017-06-17] MEDS: amLODIPine TAB* 5 MG G TUBE SCH (08:10)
[2017-06-17 10:04] LABS: Hematocrit 27 % (42-52); Hemoglobin 9.2 g/dl (14.0-18.0); Mean Corpuscular HGB Conc 34 g/dl (31-36); Mean Corpuscular Hemoglobin 30 pg (27-31); Mean Corpuscular Volume 88 fL (80-94); Mean Platelet Volume 7.7 um3 (7.4-10.4); Platelet Count 268 10^3/ul (150-450); Red Blood Count 3.05 10^6/ul (4.0-5.4); Red Cell Distribution Width 15 % (10.5-15); White Blood Count 4.2 10^3/ul (3.5-10.8)
[2017-06-17 10:25] LABS: EGFR Non-African American 6.1 (>60)
--- NOTE | 2017-06-17 10:50 | PN ---
Progress Note - Progress Note Date of Service: 06/17/17 Note: CRITICAL CARE MEDICINE Date: 06/17/17 Time: 1000 SUBJECTIVE: Patient seen and examined. mom at bedside. PHYSICAL EXAM: Vital Signs: Reviewed. BPs low 100s Neurologic: awakens; global discomfort HEENT: pupils equal. ngt. Sclera anicteric. Trachea midline. Cardiovascular: S1 S2 Respiratory: clear bl Abdomen: Soft. No r/g/r. Extremities: Warm. LABS: Reviewed. IMAGING: Reviewed. MEDICATIONS: Reviewed. ASSESSMENT: 32 yo male alports syndrome Acute hypoxic resp failure - intubated 06/14 and extubated 06/16 Acute pulm edema Acute on chronic esrd Deconditioning PLAN: Neurologic: prns. back towards oupt methadone regimen. Cardiovascular: bp ok to low end. resuming outpt anti-htn to avoid swings. Respiratory: on RA. IS as able Gastrointestinal: inc po. reglan prn. sup Renal/Metabolic: HD today which should help overall. lytes needing equilibration today. Infectious Disease: no abx needs Hematology: Anemia of chronic dz. hsq Endocrine: stable Musculoskeletal: oob and pt prn; deconditioned Psych/Social: pts mother updated Supportive and preventative care as ordered. SUP: on ppi VTE prophylaxis: heparin Disposition: to floor after hd Code Status: Full Critical Care Time: 30min Farhat Payne DO
[2017-06-17] MEDS ORDERED: Heparin DIALYSIS ONLY(*) 1,000 UNITS/ML VIAL DIALYSIS ONE (12:00)
[2017-06-17] MEDS ORDERED: Epoetin Alfa* 10,000 UNITS/ML VIAL IV ONE (12:00)
[2017-06-17] MEDS: oxyCODONE TAB* 5 MG TAB PO PRN (13:35)
[2017-06-17] MEDS: Promethazine TAB* 25 MG PO PRN (20:10)
[2017-06-18] MEDS: oxyCODONE TAB* 5 MG TAB PO PRN ×2 (00:57→09:36)
[2017-06-18] MEDS: Metoclopramide IV* 5 MG/ML 2 ML VIAL IV PRN ×2 (01:34→13:10)
[2017-06-18] MEDS ORDERED: LORazepam TAB(*) 1 MG PO ONE (01:47)
[2017-06-18] MEDS: Methadone TAB* 5 MG PO PRN ×2 (01:59→12:43)
[2017-06-18 06:10] LABS: Hematocrit 30 % (42-52); Hemoglobin 10.5 g/dl (14.0-18.0); Mean Corpuscular HGB Conc 35 g/dl (31-36); Mean Corpuscular Hemoglobin 31 pg (27-31); Mean Corpuscular Volume 88 fL (80-94); Mean Platelet Volume 7.8 um3 (7.4-10.4); Platelet Count 354 10^3/ul (150-450); Red Blood Count 3.43 10^6/ul (4.0-5.4); Red Cell Distribution Width 14 % (10.5-15); White Blood Count 5.6 10^3/ul (3.5-10.8)
[2017-06-18] MEDS: Promethazine TAB* 25 MG PO PRN ×2 (06:20→16:09)
[2017-06-18] MEDS: Heparin VIAL(*) 5000 UNITS/ML VIAL (FIVE THOUSAND) SUBCUT SCH ×3 (06:20→20:54)
[2017-06-18 06:36] LABS: EGFR Non-African American 8.6 (>60)
[2017-06-18] MEDS: Sevelamer TAB* 800 MG PO SCH ×3 (08:43→21:04)
[2017-06-18] MEDS: Ropinirole TAB* 0.5 MG TAB PO SCH ×2 (08:44→23:05)
[2017-06-18] MEDS: MinoXIDil TAB* 10 MG TAB PO SCH ×2 (08:45→23:05)
[2017-06-18] MEDS: Divalproex ER TAB(*) 500 MG PO SCH ×2 (08:45→23:05)
[2017-06-18] MEDS: Verapamil TAB* 80 MG NG TUBE SCH ×3 (08:45→23:05)
[2017-06-18] MEDS ORDERED: LORazepam TAB(*) 1 MG PO PRN (08:46)
[2017-06-18] MEDS: Propranolol TAB* 80 MG PO SCH ×3 (08:46→23:05)
[2017-06-18] MEDS ORDERED: Acetaminophen TAB* 325 MG PO PRN (08:48)
[2017-06-18] MEDS: amLODIPine TAB* 5 MG G TUBE SCH (08:51)
--- NOTE | 2017-06-18 08:55 | PN ---
Subjective Date of Service: 06/18/17 Interval History: Seen with mother at bedside Disgruntled Declining lung exam Reports back hurts from sitting in bed but refuses to walk on unit because "you don't understand" Reports sharp pain anteriorly with deep respirations Present on presentation to hospital per patient although not documented at that time Upset that he has only been offered pills and not IV pain medication Objective Active Medications: Acetaminophen (Tylenol Tab*) 975 mg PO Q8H PRN PRN Reason: PAIN OR TEMPERATURE Amlodipine Besylate (Norvasc Tab*) 10 mg G TUBE DAILY [facility] Last Admin: 06/17/17 08:10 Dose: Not Given Divalproex Sodium (Depakote Er Tab(*)) 1,500 mg PO BEDTIME [facility] Last Admin: 06/17/17 20:05 Dose: 1,500 mg Divalproex Sodium (Depakote Er Tab(*)) 1,000 mg PO DAILY [facility] Last Admin: 06/18/17 08:45 Dose: 1,000 mg Heparin Sodium (Porcine) (Heparin Vial(*)) 5,000 units SUBCUT Q8H [facility] Last Admin: 06/18/17 06:20 Dose: 5,000 units Lorazepam (Ativan Tab(*)) 1 mg PO BID PRN PRN Reason: ANXIETY Methadone HCl (Dolophine Tab*) 5 mg PO Q8H PRN PRN Reason: PAIN - MODERATE Last Admin: 06/18/17 01:59 Dose: 5 mg Metoclopramide HCl (Reglan Iv*) 5 mg IV Q6H PRN PRN Reason: NAUSEA/VOMITING Last Admin: 06/18/17 01:34 Dose: 5 mg Minoxidil (Loniten Tab*) 10 mg PO BID [facility] Last Admin: 06/18/17 08:45 Dose: 10 mg Ondansetron HCl (Zofran Odt Tab*) 4 mg PO Q6H PRN PRN Reason: NAUSEA Last Admin: 06/14/17 04:26 Dose: 4 mg Oxycodone HCl (Roxycodone Tab*) 5 mg PO Q6H PRN PRN Reason: PAIN - MODERATE TO SEVERE Last Admin: 06/18/17 00:57 Dose: 5 mg Prednisone (Deltasone Tab*) 20 mg PO DAILY [facility] Promethazine HCl (Phenergan Tab*) 25 mg PO Q6H PRN PRN Reason: headache/nausea Last Admin: 06/18/17 06:20 Dose: 25 mg Propranolol HCl (Inderal Tab*) 80 mg PO TID [facility] Last Admin: 06/18/17 08:46 Dose: 80 mg Ropinirole HCl (Requip Tab*) 0.5 mg PO BID [facility] Last Admin: 06/18/17 08:44 Dose: 0.5 mg Senna (Senokot Tab*) 1 tab PO DAILY PRN PRN Reason: CONSTIPATION Sevelamer Carbonate (Renvela Tab*) 1,600 mg PO .WITH SNACKS PRN PRN Reason: WITH SNACKS Last Admin: 06/17/17 15:16 Dose: 1,600 mg Sevelamer Carbonate (Renvela Tab*) 4,000 mg PO TID WITH MEALS [facility] Last Admin: 06/18/17 08:43 Dose: 4,000 mg Verapamil HCl (Calan Tab*) 80 mg NG TUBE TID [facility] Last Admin: 06/18/17 08:45 Dose: 80 mg Vital Signs - 8 hr 06/18/17 06/18/17 06/18/17 00:57 01:59 03:48 Temperature 98.7 F Pulse Rate 72 Respiratory 18 18 16 Rate Blood Pressure 138/67 (mmHg) O2 Sat by Pulse 99 Oximetry 06/18/17 06/18/17 04:08 04:09 Temperature Pulse Rate Respiratory 18 18 Rate Blood Pressure (mmHg) O2 Sat by Pulse Oximetry Oxygen Devices in Use Now: None, Nasal Cannula - 1L Appearance: older than stated age, NAD Eyes: No Scleral Icterus, PERRLA Ears/Nose/Mouth/Throat: NL Teeth, Lips, Gums, Clear Oropharnyx Neck: NL Appearance and Movements; NL JVP, Trachea Midline Respiratory: - - declined by patient, clear anteriorly Cardiovascular: - - 2/6 MI Abdominal: NL Sounds; No Tenderness; No Distention, No Hepatosplenomegaly Lymphatic: No Cervical Adenopathy Extremities: No Edema Skin: No Rash or Ulcers Neurological: Alert and Oriented x 3 Result Diagrams: 06/18/17 05:48 06/18/17 05:48 Assess/Plan/Problems-Billing Assessment: 32 yo M h/o alports dz complicated by ESRD on HD /Thu/Sat with recent hospital stay and discharge on oxygen [place] [facility] [place]/ short dialysis sessions for various reasons then stay complicated by hypoxic respiratory failure s/p intubate from 06/14-06/16 - Patient Problems (1) End stage renal disease Comment: reportedly below dry weight (2) Acute respiratory failure with hypoxia Comment: still with oxygen requirement. Apparently discharged from prior hospital stay with oxygen. I would like to watch him, mobilize, continue HD and see if we can get him onto room air. (3) Hypertension Comment: All home medications restarted (4) Chest pain Comment: Pleuritic in nature trial prednisone started 06/18 - avoid nsaids with ESRD (5) Chronic pain Comment: methadone dose increased in ICU Has breakthrough oxycodone (started here) Added 975 tylenol TID PRN (6) Anxiety Comment: istop checked restared home ativan BID (pt reports he takes 1mg not the 2 prescribed) (7) DVT prophylaxis Comment: HSQ
[2017-06-18] MEDS: predniSONE TAB* 20 MG PO SCH (09:34)
[2017-06-18] MEDS: Ondansetron INJ* 2 MG/ML VIAL IV PRN ×2 (17:03→20:52)
[2017-06-18] MEDS: Omeprazole CAP* 20 MG PO SCH (22:19)
[2017-06-19] MEDS: Omeprazole CAP* 20 MG PO SCH (05:53)
[2017-06-19] MEDS: Heparin VIAL(*) 5000 UNITS/ML VIAL (FIVE THOUSAND) SUBCUT SCH ×2 (05:53→13:47)
[2017-06-19] MEDS: Propranolol TAB* 80 MG PO SCH ×2 (08:26→14:24)
[2017-06-19] MEDS: Sevelamer TAB* 800 MG PO SCH ×2 (10:07→13:47)
[2017-06-19] MEDS: Verapamil TAB* 80 MG NG TUBE SCH ×2 (10:58→14:26)
[2017-06-19] MEDS ORDERED: Heparin DIALYSIS ONLY(*) 1,000 UNITS/ML VIAL DIALYSIS ONE (12:00)
[2017-06-19] MEDS: Ropinirole TAB* 0.5 MG TAB PO SCH (14:24)
[2017-06-19] MEDS: predniSONE TAB* 20 MG PO SCH (14:24)
[2017-06-19] MEDS: amLODIPine TAB* 5 MG G TUBE SCH (14:24)
[2017-06-19] MEDS: MinoXIDil TAB* 10 MG TAB PO SCH (14:24)
[2017-06-19] MEDS: Divalproex ER TAB(*) 500 MG PO SCH (14:25)
[2017-06-19 14:59] VITALS: BP 140/67
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
== END 2017-06-19 14:45 | disposition home or self-care (01) | DRG 133 ==
LOC: ED 00:36 → MEDTELE 03:45 → ICU 08:00 → MED 06-17 15:34
PROVIDERS: ADMIT Internal Medicine; ATTEND Internal Medicine
PROC: 0BH17EZ Insertion of Endotracheal Airway into Trachea, Via Natural or Artificial Opening (ICD-10-PCS; principal; 2017-06-14)
PROC: 5A1945Z Respiratory Ventilation, 24-96 Consecutive Hours (ICD-10-PCS; 2017-06-14)
PROC: 5A1D70Z Performance of Urinary Filtration, Intermittent, Less than 6 Hours Per Day (ICD-10-PCS; 2017-06-14)
PROC: 5A09357 Assistance with Respiratory Ventilation, Less than 24 Consecutive Hours, Continuous Positive Airway Pressure (ICD-10-PCS; 2017-06-14)
PROC: 5A1D70Z Performance of Urinary Filtration, Intermittent, Less than 6 Hours Per Day (ICD-10-PCS; 2017-06-15)
PROC: 5A1D70Z Performance of Urinary Filtration, Intermittent, Less than 6 Hours Per Day (ICD-10-PCS; 2017-06-17)
PROC: 5A1D70Z Performance of Urinary Filtration, Intermittent, Less than 6 Hours Per Day (ICD-10-PCS; 2017-06-19)
DX: J96.01 Acute respiratory failure with hypoxia (principal); N18.6 End stage renal disease; T86.12 Kidney transplant failure; I13.2 Hypertensive heart and chronic kidney disease with heart failure and with stage 5 chronic kidney disease, or end stage renal disease; I16.1 Hypertensive emergency; Q87.81 Alport syndrome; E87.70 Fluid overload, unspecified; G62.9 Polyneuropathy, unspecified; I50.9 Heart failure, unspecified; G89.29 Other chronic pain; M54.9 Dorsalgia, unspecified; H91.93 Unspecified hearing loss, bilateral; G43.909 Migraine, unspecified, not intractable, without status migrainosus; G25.81 Restless legs syndrome; F41.9 Anxiety disorder, unspecified; F32.9 Major depressive disorder, single episode, unspecified; E87.5 Hyperkalemia; D63.1 Anemia in chronic kidney disease; Z99.2 Dependence on renal dialysis; Z82.49 Family history of ischemic heart disease and other diseases of the circulatory system; Z88.5 Allergy status to narcotic agent; Z86.711 Personal history of pulmonary embolism; Z90.5 Acquired absence of kidney; Z84.81 Family history of carrier of genetic disease; Z87.891 Personal history of nicotine dependence; Z88.8 Allergy status to other drugs, medicaments and biological substances; R11.10 Vomiting, unspecified; R07.9 Chest pain, unspecified
CPT/HCPCS: 36415; 36600; 71045; 80048; 80053; 80164; 82803; 83735; 83880; 84100; 85025; 85027; 85610; 85730; 86140; 90935; 93005; 94002; 94003; 94660; 94760; 99284; A9270-GY; G0257; J0360; J0885; J1644; J1940; J2060; J2270; J2405; J2543; J2704; J2765; J3010; J7512

== ENCOUNTER 2017-06-25 17:02 | Observation (INO) | payer BC ==
[2017-06-25] MEDS ORDERED: Ondansetron INJ* 2 MG/ML VIAL IV ONE (18:20)
[2017-06-25] MEDS ORDERED: Morphine INJ* 4 MG/ML 1 ML CARPUJECT IV ONE (18:43)
[2017-06-25] MEDS ORDERED: Nitroglycerin 2% OINT* 1 GM PAK TOPICAL ONE (18:44)
--- NOTE | 2017-06-25 18:55 | PN ---
Progress Note - Progress Note Date of Service: 06/25/17 Note: Greeted patient and ordered labs and chest x-ray. Ordered some medications to stabilize blood pressure and help with nausea. Patient will be seen by a physician due to complicated history and is patient was just discharged from hospital 3 days ago after being intubated and on a respirator due to flash pulmonary edema. Spoke with Dr. Cardona as well. General: Appears ill, alert and oriented Cardiac: RRR Respiratory: Bilateral lower crackles, wheezes Abdomen: Normal bowel sounds nontender Neurologic: Weakness
[2017-06-25 19:09] LABS: ABS Basophils 0.2 10^3/ul (0-0.2); ABS Eosinophils 0.3 10^3/ul (0-0.6); ABS Lymphocytes 1.2 10^3/ul (1.0-4.8); ABS Monocytes 0.6 10^3/ul (0-0.8); ABS Neutrophils 4.3 10^3/ul (1.5-7.7); ABS Nucleated RBC 0 10^3/ul; Eosinophil % 4.2 % (0-6); Hematocrit 29 % (42-52); Hemoglobin 9.4 g/dl (14.0-18.0); Lymphocyte % 18.8 % (25-47); Mean Corpuscular HGB Conc 33 g/dl (31-36); Mean Corpuscular Hemoglobin 30 pg (27-31); Mean Corpuscular Volume 91 fL (80-94); Mean Platelet Volume 7.6 um3 (7.4-10.4); Nucleated Red Blood Cells % 0; Platelet Count 238 10^3/ul (150-450); Red Blood Count 3.16 10^6/ul (4.0-5.4); Red Cell Distribution Width 16 % (10.5-15); White Blood Count 6.6 10^3/ul (3.5-10.8)
[2017-06-25 19:16] LABS: INR 0.92 (0.77-1.02)
--- NOTE | 2017-06-25 19:22 | RAD ---
INDICATION: Pulmonary edema, crackles. COMPARISON: Comparison is made with a prior chest x-ray study from June 15, 2017. TECHNIQUE: Dual-energy PA and lateral views of the chest were obtained. FINDINGS: The heart is within normal limits in size. Mediastinal and hilar contours appear within normal limits. There is mild prominence of the interstitial markings, thickening of the fissures and trace bilateral pleural effusions suggestive of congestive heart failure. IMPRESSION: FINDINGS SUGGESTIVE OF CONGESTIVE HEART FAILURE.
[2017-06-25 19:26] LABS: EGFR Non-African American 7.8 (>60)
[2017-06-25] MEDS ORDERED: Morphine VIAL* 4 MG/ML VIAL (1 ml vial) IV ONE (19:33)
[2017-06-25] MEDS ORDERED: Sodium Bicarbonate 8.4%* 50 ML SYRINGE IV ONE (19:41)
[2017-06-25] MEDS ORDERED: Dextrose 50% Syringe 50 ML* 25 GM/50 ML SYRINGE IV PUSH ONE (19:42)
[2017-06-25] MEDS ORDERED: Calcium Gluconate INJ* 1 GM in NS 0.9% 100 ML* 100 ML IVPB ONE (19:42)
[2017-06-25] MEDS ORDERED: Insulin REGULAR(*) 1 UNITS UNIT IV PUSH ONE (19:43)
[2017-06-25] MEDS ORDERED: Ondansetron INJ* 2 MG/ML VIAL IV PRN (20:13)
[2017-06-25] MEDS ORDERED: Acetaminophen TAB* 325 MG PO PRN (20:13)
[2017-06-25] MEDS ORDERED: Al Hydrox/Mg Hydrox/Simet LIQ* 30 ML UDC PO PRN (20:13)
[2017-06-25] MEDS ORDERED: Senna TAB PO PRN (20:13)
[2017-06-25] MEDS ORDERED: Docusate CAP* 100 MG PO PRN (20:13)
--- NOTE | 2017-06-25 20:13 | ED ---
Ashlyn Alejandro Rebecca, scribed for Leticia Coleman MD on 06/25/17 at 1917 . Complex/Multi-Sys Presentation - HPI Summary HPI Summary: Pt is a 32 y/o M who presents to ED c/o diffuse abdominal pain with N/V. Pain began yesterday and is currently severe, ranked 8/10. Additionally c/o productive cough, bringing up blood since this morning. Notes generalized weakness and fatigue. Denies fever. PMHx kidney transplant (2010, rejected in 2015), renal failure. Last dialysis treatment was yesterday, next one is tomorrow. Patient and state he has been compliant with diet and that symptoms are typical of when he gets overloaded with fluid. - History Of Current Complaint Chief Complaint: EDNauseaVomitDiarrh Time Seen by Provider: 06/25/17 18:12 Hx Obtained From: Patient Onset/Duration: Lasting Days - Yesterday, Still Present Severity Initially: Severe - 8/10 Location: Pain At: - Diffuse abdominal pain Character: Sharp Aggravating Factor(s): Nothing Alleviating Factor(s): Nothing Associated Signs And Symptoms: Positive: Cough, Nausea, Vomiting, Abdominal Pain - Allergies/Home Medications Allergies/Adverse Reactions: Allergies Allergy/AdvReac Type Severity Reaction Status Date / Time aspirin Allergy Unknown Verified 06/14/17 00:46 Reaction Details gabapentin Allergy twitching, Verified 06/14/17 00:46 double vision hydrocodone Allergy twitching Verified 06/14/17 00:46 Home Medications: Home Medications Promethazine TAB* [Phenergan TAB*] 25 mg PO Q6H PRN 06/25/17 [History Confirmed 06/25/17] PMH/Surg Hx/FS Hx/Imm Hx Endocrine/Hematology History: Reports: Hx Anticoagulant Therapy, Hx Blood Transfusions - February 2016, Hx Anemia Denies: Hx Blood Disorders, Hx Bone Marrow Disease, Hx Diabetes, Hx Systemic Lupus Erythematosus, Hx Sickle Cell Disease, Hx Thyroid Disease, Hx Unexplained Bleeding, Other Endocrine/Hematological Disorders Cardiovascular History: Reports: Hx Congestive Heart Failure - Probable 09/18/16 , Hx Embolism - PE, Hx Hypertension - ON MEDICATION FOR, Other Cardiovascular Problems/Disorders - RT.KIDNEY TRANSPLANT FAILED AND REMOVED/DIALYSIS Denies: Hx Aneurysm, Hx Angina, Hx Angioplasty, Hx Auto Implanted Cardiovert Defib, Hx Cardiac Arrest, Hx Cardiomegaly, Hx Congenital Heart Disease, Hx Coronary Artery Disease, Hx Deep Vein Thrombosis, Hx Hypercholesterolemia, Hx Hypotension, Hx Pacemaker/ICD, Hx Peripheral Vascular Disease, Hx Rheumatic Fever, Hx Syncope, Hx Valvular Heart Disease Respiratory History: Reports: Hx Pulmonary Edema - Flash pulmonary edema resulting in CPR 09/02/16, Other Respiratory Problems/Disorders - "left lung repaired for pneumothorax in 2006 Denies: Hx Asthma, Hx Chronic Bronchitis, Hx Chronic Obstructive Pulmonary Disease (COPD), Hx Cystic Fibrosis, Hx Lung Cancer, Hx Pleural Effusion, Hx Pneumonia, Hx Pulmonary Embolism, Hx Seasonal Allergies, Hx Sleep Apnea GI History: Denies: Hx Cirrhosis, Hx Crohn's Disease, Hx Diverticulosis, Hx Gall Bladder Disease, Hx Gastroesophageal Reflux Disease, Hx Gastrointestinal Bleed, Hx Hiatal Hernia, Hx Irritable Bowel, Hx Jaundice, Hx Obstructive Bowel, Hx Ileostomy, Hx Pyloric Stenosis, Hx Ulcer, Other GI Disorders History: Reports: Hx Acute Renal Failure, Hx Chronic Renal Failure, Hx Dialysis, Hx Renal Disease - TRANSPLANT - RT, dialysis every Thu., Wed., Thu., Other Problems/Disorders - DIALYSIS Denies: Hx Benign Prostatic Hyperplasia, Hx Kidney Infection, Hx Kidney Stones Musculoskeletal History: Reports: Hx Back Problems - chronic back pain Denies: Hx Arthritis, Hx Bursitis, Hx Congenital Bone Abnormalities, Hx Fibromyalgia, Hx Gout, Hx Orthopedic Injury, Hx Osteoporosis, Hx Scoliosis, Hx Tendonitis, Other Musculoskeletal History Sensory History: Reports: Hx Contacts or Glasses, Hx Deafness, Hx Hearing Problem - moderate hearing loss bilat ears, Other Sensory Impairments - Photophobia Denies: Hx Cataracts, Hx Eye Injury, Hx Eye Prosthesis, Hx Glaucoma, Hx Legally Blind, Hx Macular Degeneration, Hx Vision Problem, Hx Hearing Aid Opthamlomology History: Reports: Hx Contacts or Glasses, Other Sensory Impairments - Photophobia Denies: Hx Cataracts, Hx Eye Injury, Hx Eye Prosthesis, Hx Glaucoma, Hx Legally Blind, Hx Macular Degeneration, Hx Vision Problem Neurological History: Reports: Hx Headaches, Hx Migraine - 1-2 PER MONTH, Hx Seizures - September 2016, Other Neuro Impairments/Disorders - Restless leg syndrome Denies: Hx Dementia, Hx Developmental Delay, Hx Nerve Disease, Hx Spinal Cord Injury, Hx Transient Ischemic Attacks (TIA) Psychiatric History: Reports: Hx Anxiety - NEW-STATES MD IS AWARE, Hx Depression - NEW-STATES MD IS AWARE Denies: Hx Attention Deficit Hyperactivity Disorder, Hx Eating Disorder, Hx Panic Disorder, Hx Post Traumatic Stress Disorder, Hx Inpatient Treatment, Hx Community Mental Health Tx, Hx Schizophrenia, Hx Bipolar Disorder, Hx Suicide Attempt, Hx of Violent Episodes Against Others, Hx Substance Abuse, Other Psychiatric Issues/Disorders - Cancer History Hx Chemotherapy: No Hx Radiation Therapy: No Hx Palliative Cancer Treatment: No - Surgical History Surgery Procedure, Year, and Place: 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[place], [place]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; LEFT LUNG SX FOR REPAIR; LEFT ARM FISTULA FOR DIALISYS 2015, RIGHT CHEST WALL CATH FOR DIALYSIS; RIGHT NEPHRECTOMY - kidney rejected, 2016 Hx Anesthesia Reactions: No - Immunization History Date of Tetanus Vaccine: unk Date of Influenza Vaccine: unk Infectious Disease History: No Infectious Disease History: Denies: Hx Hepatitis, Hx of Known/Suspected MRSA, Hx Shingles, Hx Tuberculosis, History Other Infectious Disease, Traveled Outside the [place] in Last 30 Days - Family History Known Family History: Positive: Other - Mother carrier of alport disease gene Negative: Blood Disorder - Social History Alcohol Use: None Alcohol Amount: Once per month before getting sick in February Hx Substance Use: No Substance Use Type: Reports: None Hx Tobacco Use: Yes Smoking Status (MU): Former Smoker Type: Cigarettes Amount Used/How Often: 1 PPD X 4 YEARS Have You Smoked in the Last Year: No Review of Systems Positive: Fatigue, Other - Generalized weakness. Negative: Fever Positive: Cough Positive: Abdominal Pain, Vomiting, Nausea All Other Systems Reviewed And Are Negative: Yes Physical Exam - Summary Physical Exam Summary: VITAL SIGNS: Reviewed. GENERAL: ~Patient is a well-developed and nourished male who is lying comfortable in the stretcher. Patient is not in any acute respiratory distress. HEAD AND FACE: No signs of trauma. No ecchymosis, hematomas or skull depressions. No sinus tenderness. EYES: PERRLA, EOMI x 2, No injected conjunctiva, no nystagmus. EARS: Hearing grossly intact. Ear canals and tympanic membranes are within normal limits. MOUTH: Oropharynx within normal limits. NECK: Supple, trachea is midline, bilateral JVD, no adenopathy, no carotid bruit , no c-spine tenderness, neck with full ROM. CHEST: Symmetric, no tenderness at palpation LUNGS: Rales on both sides. CVS: Regular rate and rhythm, S1 and S2 present, no murmurs or gallops appreciated. ABDOMEN: Soft, mild diffuse abdominal tenderness. No signs of distention. No rebound no guarding, and no masses palpated. Bowel sounds are normal. EXTREMITIES: FROM in all major joints, no edema, no cyanosis or clubbing. NEURO: Alert and oriented x 3. No acute neurological deficits. Speech is normal and follows commands. SKIN: Dry and warm Triage Information Reviewed: Yes Vital Signs On Initial Exam: Initial Vitals Temp Pulse Resp BP Pulse Ox 98.3 F 86 20 167/108 100 06/25/17 17:04 06/25/17 17:04 06/25/17 17:04 06/25/17 17:04 06/25/17 17:04 Vital Signs Reviewed: Yes Diagnostics - Vital Signs Vital Signs Temp Pulse Resp BP Pulse Ox 06/25/17 17:04 98.3 F 86 20 167/108 100 - Laboratory Lab Results: Lab Results 06/25/17 Range/Units 18:45 WBC 6.6 (3.5-10.8) 10^3/ul RBC 3.16 L (4.0-5.4) 10^6/ul Hgb 9.4 L (14.0-18.0) g/dl Hct 29 L (42-52) % MCV 91 (80-94) fL MCH 30 (27-31) pg MCHC 33 (31-36) g/dl RDW 16 H (10.5-15) % Plt Count 238 (150-450) 10^3/ul MPV 7.6 (7.4-10.4) um3 Neut % (Auto) 65.4 (38-83) % Lymph % (Auto) 18.8 L (25-47) % Hamlin % (Auto) 9.3 H (0-7) % Eos % (Auto) 4.2 (0-6) % Baso % (Auto) 2.3 H (0-2) % Absolute Neuts (auto) 4.3 (1.5-7.7) 10^3/ul Absolute Lymphs (auto) 1.2 (1.0-4.8) 10^3/ul Absolute Monos (auto) 0.6 (0-0.8) 10^3/ul Absolute Eos (auto) 0.3 (0-0.6) 10^3/ul Absolute Basos (auto) 0.2 (0-0.2) 10^3/ul Absolute Nucleated RBC 0 10^3/ul Nucleated RBC % 0 Result Diagrams: 06/25/17 18:45 06/25/17 18:45 Lab Statement: Any lab studies that have been ordered have been reviewed, and results considered in the medical decision making process. - Radiology CXR Radiology Interpretation Completed By: Radiologist - FINDINGS SUGGESTIVE OF CONGESTIVE HEART FAILURE. ED physician reviewed this radiology report. - EKG 1950 Cardiac Rate: NL - 88 bpm EKG Rhythm: Sinus Rhythm EKG Interpretation: Peaked T waves in the anterior leads, consistent with kyperkalemia Complex Multi-Symp Course/Dx Assessment/Plan: Pt is a 32 y/o M who presents to ED c/o severe, diffuse abdominal pain with N/V since yesterday with productive cough, bringing up blood , since this morning. Notes generalized weakness and fatigue. Denies fever. PMHx kidney transplant (2010, rejected in 2015), renal failure, last dialysis yesterday, next is tomorrow. CXR findings are suggestive of CHF. Blood work was done. EKG is sinus rhythm with peaked T wave in the anterior leads, consistent with hyperkalemia. Potassium of 6.8, BNP of 3003, sodium of 138. In the ED course, pt received morphine, nitroglycerin, zofran, ventolin, calcium gluconate , dextrose, insulin, and sodium bicarbonate. Discussed care of pt with Dr. Arana who recommened admission to ICU for dialysis. Discussed care of pt with Dr. Mccarty who accepts pt for admission. Pt will be admitted with Dx of chronic renal failure and volume overload. He understands and agrees. 40 mintues of critical care time. Allergies noted. - Diagnoses Provider Diagnoses: Chronic renal failure, Volume overload - Physician Notifications Discussed Care Of Patient With: Jose De Jesus Arana Time Discussed With Above Provider: 19:30 Instructed by Provider To: Other - Recommended the pt is admitted to the ICU for dialysis. DIscussed care of pt with Dr. Maurizio Mccarty at 1940 who accepts pt for admission. - Critical Care Time Critical Care Time: 30-74 min - 40 minutes Discharge - Sign-Out/Discharge Documenting (check all that apply): Discharge - Admitted - Discharge Plan Condition: Fair Disposition: ADMITTED TO [facility] Referrals: Christa Frey MD [Primary Care Provider] - The documentation as recorded by the Ashlyn florence Rebecca accurately reflects the service I personally performed and the decisions made by , Leticia Coleman MD.
[2017-06-25] MEDS ORDERED: PROCHLORPERAZINE INJ 5 MG/ML 2 ML VIAL IV PRN (20:21)
[2017-06-25] MEDS ORDERED: Metoclopramide IV* 5 MG/ML 2 ML VIAL IV PRN (20:21)
[2017-06-25] MEDS ORDERED: LORazepam TAB(*) 1 MG PO PRN (20:24)
[2017-06-25] MEDS ORDERED: Methadone TAB* 5 MG PO PRN (20:24)
[2017-06-25] MEDS ORDERED: Sodium Polystyrene ORAL.SOL* 15 GM/60 ML BTL PO ONE (20:43)
[2017-06-25] MEDS: Albuterol 2.5 MG/3 ML NEB.SOL* (0.083%) INH SCH ×2 (20:43→20:53)
[2017-06-25] MEDS: hydrALAZINE IV* 20 MG/ML VIAL IV SLOW PU ONE ×2 (20:47→21:32)
[2017-06-25] MEDS ORDERED: Patiromer POWDER* 8.4 GM PAK PO SCH (21:00)
[2017-06-25] MEDS ORDERED: Sevelamer TAB* 800 MG PO PRN (21:00)
[2017-06-25] MEDS ORDERED: hydrALAZINE IV* 20 MG/ML VIAL ONE (21:30)
--- NOTE | 2017-06-25 21:58 | HP ---
CC: Christa Frey MD; Jose De Jesus Arana MD * HISTORY AND PHYSICAL: DATE OF ADMISSION: 06/25/17 TIME OF EVALUATION: 1999 PRIMARY CARE PHYSICIAN: Christa Frey MD ASSISTANT PROSECUTING ATTORNEY: Jose De Jesus Arana MD CHIEF COMPLAINT: Chest pain and shortness of breath. HISTORY OF PRESENT ILLNESS: This is a 32-year-old male with a past medical history of Alport syndrome and end-stage renal disease, on hemodialysis who was recently admitted about a week ago for flash pulmonary edema, presents today with shortness of breath, coughing up blood, chest pain. He states he feels that he either has volume overload or pneumonia. He states this started late last night. He denies any fevers. No chills. He does have some nausea, vomiting, some abdominal discomfort. He states he completed a full round of dialysis yesterday on the . He does state he missed his dialysis a week ago on the for car issues. He has lost weight because he has been in and out of the hospital and has not been eating normally. Yesterday, he states because his truck is not working and is being worked on, he was home alone all day and he was bored and he was eating and he states he ate more out of the normal for him typically, but strictly really out of boredom. In the emergency room, the patient had labs and imaging. He was found to be in flash pulmonary edema with hyperkalemia. Dr. Arana was called, he recommended ICU admission with dialysis this evening. In the emergency room, he was given an amp of bicarb, Zofran 4 mg, nitro paste, morphine 4 mg, calcium gluconate, dextrose and insulin. PAST MEDICAL HISTORY: 1. End-stage renal disease, on hemodialysis Thursday, Thursday, Thursday. 2. 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 3. Migraines. The patient receives Botox injections. 4. Hypertension. 5. Chronic pain, on methadone. 6. Anxiety. 7. Anemia of chronic disease. 8. GERD. 9. History of spontaneous pneumothorax. 10. History of a failed renal transplant with explantation as well as PD catheter placement and removal in the past. He does have a fistula placement as well with the recent emergency surgery due to clotting about a week ago. MEDICATIONS: New medications: 1. Plavix 75 mg p.o. daily. 2. Veltassa 8.4 g as directed by dialysis. 3. Zofran 4 mg every 6 hours as needed for nausea. 4. Omeprazole 40 mg daily. 5. Minoxidil 10 mg twice daily. 6. Methadone 5 mg b.i.d. as needed. 7. Depakote 1000 mg in the morning, 1500 mg in the evening. 8. Amlodipine 10 mg daily. 9. Verapamil 240 mg daily. 10. Renvela 4000 mg 3 times a day with meals and 1600 mg with snacks. 11. Ropinirole 0.4 mg p.o. b.i.d. 12. Propranolol 80 mg p.o. t.i.d. 13. Lorazepam 1 mg b.i.d. as needed for anxiety. 14. The patient just completed a prednisone taper on the . ALLERGIES: ASPIRIN, GABAPENTIN, and HYDROCODONE. FAMILY HISTORY: Mother is Alport syndrome carrier. SOCIAL HISTORY: The patient lives alone. He is on disability. He is independent of his ADLs. His mother is his healthcare proxy. He has no smoking , alcohol or illicit drug use. Code status full code. REVIEW OF SYSTEMS: A 14-point review of systems as mentioned in the HPI, otherwise negative. PHYSICAL EXAMINATION GENERAL: No acute distress, resting comfortably, with his mother at the bedside. VITAL SIGNS: Temp 98.3, pulse rate 86, respiratory rate 20, oxygen saturation 100% on room air, and blood pressure 167/108. HEENT: Head: Normocephalic. Pupils equal and reactive, anicteric. Oropharynx : Mucous membranes are moist. NECK: Supple. No lymphadenopathy. RESPIRATORY: Bilateral rales. No increased work of breathing. CARDIAC: Regular rate and rhythm. Soft systolic murmur heard throughout. ABDOMEN: Soft, nontender. Positive bowel sounds. No rebound or guarding. EXTREMITIES: No clubbing, cyanosis, or edema. +1 DPs. He has a fistula in his left upper extremity, a thrill is noted. NEUROLOGIC: Alert and oriented x3. No gross focal neurologic deficits. LABORATORY DATA: White count 6.6, hemoglobin 9.4, hematocrit 29, platelets 238 ,000. INR is 0.92. Sodium 138, potassium 6.8, chloride 97, bicarb 32, BUN 51, creatinine of 8.14, BNP is 3000. RADIOGRAPHIC DATA: Chest x-ray shows findings suggestive for congestive heart failure. EKG shows sinus rhythm with peaked T waves. ASSESSMENT AND PLAN: This is a 32-year-old male with a past medical history of end- stage renal disease, on hemodialysis with Alport syndrome, who presents to the emergency room with shortness of breath, hemoptysis, and chest pain. Findings consistent with acute pulmonary edema and also noted to have hyperkalemia. Shortness of breath, chest pain and hemoptysis. Assessment: This is consistent with pulmonary edema. The patient has had a variable diet and yesterday he was eating quite a bit, he states due to boredom and this may have put him into flash pulmonary edema. He did get dialysis yesterday, as a result he also has hyperkalemia. Dr. Arana has been notified. The plan is to admit him to the ICU. He will have dialysis tonight. He has been treated for his hyperkalemia with calcium gluconate, insulin and dextrose. We will order him Kayexalate as well and we will continue his antiemetics including Reglan and Compazine as he states this is what has worked for him in the past. CHRONIC MEDICAL PROBLEMS: We will resume his chronic medications as prescribed in addition to the Plavix that is a new med that is not on his home reconciliation. FEN. We will place him on renal diet, low salt, daily weights. DVT prophylaxis. The patient scores 0. Place him on SCDs. Code status: Full code. Disposition: The patient struggles with getting chronic care for his Alport syndrome including hearing aids as he states he is on disability and does not qualify for Medicaid. I did put in the social work consult to help assist with any further resources to get him what he needs at discharge. TIME SPENT: Greater than 60 minutes spent doing the history and physical, more than half the time was spent in direct patient contact. [id number]/[facility] #: [id number] LUIS M
[2017-06-25] MEDS: Sevelamer TAB* 800 MG PO SCH (22:54)
[2017-06-26] MEDS: Ropinirole TAB* 0.5 MG TAB PO SCH ×2 (00:01→07:36)
[2017-06-26 02:19] LABS: Hematocrit 25 % (42-52); Hemoglobin 8.4 g/dl (14.0-18.0); Mean Corpuscular HGB Conc 34 g/dl (31-36); Mean Corpuscular Hemoglobin 30 pg (27-31); Mean Corpuscular Volume 90 fL (80-94); Mean Platelet Volume 7.5 um3 (7.4-10.4); Platelet Count 222 10^3/ul (150-450); Red Blood Count 2.77 10^6/ul (4.0-5.4); Red Cell Distribution Width 16 % (10.5-15)
[2017-06-26] MEDS ORDERED: Methadone TAB* 5 MG PO ONE (02:19)
[2017-06-26] MEDS ORDERED: Sodium Polystyrene ORAL.SOL* 15 GM/60 ML BTL PO SCH (03:00)
[2017-06-26 03:35] LABS: ABS Basophils 0.1 10^3/ul (0-0.2); ABS Eosinophils 0.1 10^3/ul (0-0.6); ABS Lymphocytes 0.7 10^3/ul (1.0-4.8); ABS Monocytes 0.5 10^3/ul (0-0.8); ABS Neutrophils 8.1 10^3/ul (1.5-7.7); ABS Nucleated RBC 0 10^3/ul; Eosinophil % 0.6 % (0-6); Lymphocyte % 6.9 % (25-47); Nucleated Red Blood Cells % 0.1
[2017-06-26] MEDS: Propranolol TAB* 80 MG PO SCH ×2 (07:36)
[2017-06-26] MEDS: MinoXIDil TAB* 10 MG TAB PO SCH ×2 (07:36)
[2017-06-26] MEDS ORDERED: Morphine INJ* 4 MG/ML 1 ML CARPUJECT IV PRN (07:46)
--- NOTE | 2017-06-26 07:53 | PN ---
Subjective Date of Service: 06/26/17 Interval History: C/o midsternal chest pain from coughing. Less SOB since HD. No new c/o. Objective Active Medications: Acetaminophen (Tylenol Tab*) 650 mg PO Q4H PRN PRN Reason: FEVER/PAIN Al Hydrox/Mg Hydrox/Simethicone (Maalox Plus*) 30 ml PO Q6H PRN PRN Reason: INDIGESTION Amlodipine Besylate (Norvasc Tab*) 10 mg PO DAILY [facility] Last Admin: 06/26/17 07:36 Dose: 10 mg Clopidogrel Bisulfate (Plavix Tab*) 75 mg PO DAILY [facility] Last Admin: 06/26/17 07:36 Dose: 75 mg Divalproex Sodium (Depakote Er Tab(*)) 1,000 mg PO QAM [facility] Last Admin: 06/26/17 07:34 Dose: 1,000 mg Divalproex Sodium (Depakote Er Tab(*)) 1,500 mg PO QPM [facility] Docusate Sodium (Colace Cap*) 100 mg PO BID PRN PRN Reason: CONSTIPATION Lorazepam (Ativan Tab(*)) 1 mg PO BID PRN PRN Reason: ANXIETY Methadone HCl (Dolophine Tab*) 5 mg PO Q12H PRN PRN Reason: SEVERE PAIN Last Admin: 06/25/17 22:24 Dose: 5 mg Metoclopramide HCl (Reglan Iv*) 5 mg IV Q6H PRN PRN Reason: NAUSEA/VOMITING Minoxidil (Loniten Tab*) 10 mg PO BID [facility] Last Admin: 06/26/17 07:36 Dose: 10 mg Ondansetron HCl (Zofran Inj*) 4 mg IV Q4H PRN PRN Reason: NAUSEA/VOMITING Pantoprazole Sodium (Protonix Tab (Nf)) 40 mg PO DAILY [facility] Last Admin: 06/26/17 07:36 Dose: 40 mg Prochlorperazine Edisylate (Compazine Inj*) 5 mg IV Q6H PRN PRN Reason: NAUSEA/VOMITING Propranolol HCl (Inderal Tab*) 80 mg PO TID [facility] Last Admin: 06/26/17 07:36 Dose: 80 mg Ropinirole HCl (Requip Tab*) 0.5 mg PO BID [facility] Last Admin: 06/26/17 07:36 Dose: 0.5 mg Senna (Senokot Tab*) 1 tab PO BID PRN PRN Reason: CONSTIPATION Sevelamer Carbonate (Renvela Tab*) 1,600 mg PO .WITH SNACKS PRN PRN Reason: WITH SNACKS Last Admin: 06/26/17 04:09 Dose: 1,600 mg Sevelamer Carbonate (Renvela Tab*) 4,000 mg PO TID WITH MEALS [facility] Last Admin: 06/25/17 22:54 Dose: 4,000 mg Verapamil HCl (Calan Sr Tab*) 240 mg PO DAILY [facility] Last Admin: 06/26/17 07:36 Dose: 240 mg Vital Signs - 8 hr 06/25/17 06/25/17 06/26/17 23:51 23:52 00:00 Temperature 96.8 F Pulse Rate 105 101 Respiratory 20 20 14 Rate Blood Pressure 138/63 (mmHg) O2 Sat by Pulse 96 95 Oximetry 06/26/17 06/26/17 06/26/17 00:01 00:15 00:30 Temperature Pulse Rate 101 96 100 Respiratory 20 14 15 Rate Blood Pressure 120/55 120/47 111/47 (mmHg) O2 Sat by Pulse 95 96 97 Oximetry 06/26/17 06/26/17 06/26/17 00:33 00:45 00:57 Temperature Pulse Rate 98 Respiratory 14 13 Rate Blood Pressure 121/43 (mmHg) O2 Sat by Pulse 95 97 Oximetry 06/26/17 06/26/17 06/26/17 01:00 01:15 01:30 Temperature Pulse Rate 105 94 87 Respiratory 19 16 14 Rate Blood Pressure 116/51 111/40 110/40 (mmHg) O2 Sat by Pulse 97 97 98 Oximetry 06/26/17 06/26/17 06/26/17 01:45 01:48 02:00 Temperature Pulse Rate 90 85 Respiratory 15 20 16 Rate Blood Pressure 105/39 107/39 (mmHg) O2 Sat by Pulse 98 98 Oximetry 06/26/17 06/26/17 06/26/17 02:23 02:30 03:00 Temperature Pulse Rate 84 83 Respiratory 12 12 9 Rate Blood Pressure 126/58 102/51 (mmHg) O2 Sat by Pulse 99 98 Oximetry 06/26/17 06/26/17 06/26/17 03:30 03:57 04:00 Temperature 99.2 F Pulse Rate 83 81 Respiratory 10 16 11 Rate Blood Pressure 118/60 116/63 (mmHg) O2 Sat by Pulse 99 99 Oximetry 06/26/17 06/26/17 06/26/17 04:01 04:30 04:54 Temperature Pulse Rate 81 87 Respiratory 12 14 13 Rate Blood Pressure 130/79 (mmHg) O2 Sat by Pulse 99 100 Oximetry 06/26/17 06/26/17 06/26/17 05:00 05:01 05:30 Temperature Pulse Rate 90 91 90 Respiratory 16 12 16 Rate Blood Pressure 126/77 122/66 (mmHg) O2 Sat by Pulse 98 98 98 Oximetry 06/26/17 06/26/17 06/26/17 05:34 06:00 06:30 Temperature Pulse Rate 88 91 Respiratory 15 15 15 Rate Blood Pressure 125/63 141/74 (mmHg) O2 Sat by Pulse 98 98 Oximetry 06/26/17 06/26/17 07:00 07:01 Temperature Pulse Rate 87 84 Respiratory 14 12 Rate Blood Pressure 135/78 (mmHg) O2 Sat by Pulse 97 98 Oximetry Oxygen Devices in Use Now: Nasal Cannula Appearance: Alert, partly up in ICU bed. In fair spirits. Looks comfortable. Eyes: No Scleral Icterus Respiratory: Symmetrical Chest Expansion and Respiratory Effort, Clear to Auscultation, Clear to Percussion Cardiovascular: NL Sounds; No Murmurs; No JVD, RRR, No Edema, - Extremities: No Edema, No Clubbing, Cyanosis, - Skin: No Rash or Ulcers, No Nodules or Sclerosis, - Neurological: Alert and Oriented x 3, NL Sensation, NL Gait, NL Muscle Strength and Tone, - Result Diagrams: 06/26/17 02:05 06/26/17 02:05 Additional Lab and Data: Lab Results 06/25/17 Range/Units 18:45 WBC 6.6 (3.5-10.8) 10^3/ul RBC 3.16 L (4.0-5.4) 10^6/ul Hgb 9.4 L (14.0-18.0) g/dl Hct 29 L (42-52) % MCV 91 (80-94) fL MCH 30 (27-31) pg MCHC 33 (31-36) g/dl RDW 16 H (10.5-15) % Plt Count 238 (150-450) 10^3/ul MPV 7.6 (7.4-10.4) um3 Neut % (Auto) 65.4 (38-83) % Lymph % (Auto) 18.8 L (25-47) % [place] % (Auto) 9.3 H (0-7) % Eos % (Auto) 4.2 (0-6) % Baso % (Auto) 2.3 H (0-2) % Absolute Neuts (auto) 4.3 (1.5-7.7) 10^3/ul Absolute Lymphs (auto) 1.2 (1.0-4.8) 10^3/ul Absolute Monos (auto) 0.6 (0-0.8) 10^3/ul Absolute Eos (auto) 0.3 (0-0.6) 10^3/ul Absolute Basos (auto) 0.2 (0-0.2) 10^3/ul Absolute Nucleated RBC 0 10^3/ul Nucleated RBC % 0 Assess/Plan/Problems-Billing Assessment: - Patient Problems (1) Volume overload Current Visit: No Status: Acute Priority: High Code(s): E87.70 - FLUID OVERLOAD, UNSPECIFIED SNOMED Code(s): 52914136 Comment: Improved with some HD overnight. Plan on full session in dialysis unit at 10:30. I will discuss with Dr. Arana. (2) End stage renal disease Current Visit: No Status: Acute Code(s): N18.6 - END STAGE RENAL DISEASE SNOMED Code(s): 94656636 Comment: Alport syndrome. (3) Chronic pain Current Visit: No Status: Acute Code(s): G89.29 - OTHER CHRONIC PAIN SNOMED Code(s): 21435202 Comment: methadone per Dr. Arana. MS IV while in hospital for chest pain. (4) Migraine Current Visit: No Status: Acute Priority: Medium Code(s): G43.909 - MIGRAINE, UNSP, NOT INTRACTABLE, WITHOUT STATUS MIGRAINOSUS SNOMED Code(s): 64980343 Comment: Outpatient botox injections, valproic acid per Dr. Mike. (5) HTN (hypertension) Current Visit: No Status: Acute Code(s): I10 - ESSENTIAL (PRIMARY) HYPERTENSION SNOMED Code(s): 37815439 Comment: Continue home propranolol, verapamil, amlodpine, minoxidil.
[2017-06-26] MEDS ORDERED: Morphine VIAL* 4 MG/ML VIAL (1 ml vial) IV ONE (08:36)
[2017-06-26] MEDS ORDERED: Clopidogrel TAB* 75 MG PO SCH (09:00)
[2017-06-26] MEDS ORDERED: Divalproex ER TAB(*) 500 MG PO SCH ×2 (09:00→18:00)
[2017-06-26] MEDS ORDERED: amLODIPine TAB* 5 MG PO SCH (09:00)
[2017-06-26] MEDS ORDERED: CMCS:Pantoprazole TAB (NF) 40 MG TAB PO SCH (09:00)
[2017-06-26] MEDS ORDERED: Verapamil SR TAB* 240 MG PO SCH (09:00)
[2017-06-26] MEDS: Sevelamer TAB* 800 MG PO SCH (09:09)
[2017-06-26 09:30] VITALS: BP 150/85
--- NOTE | 2017-06-26 11:53 | DS ---
CC: Dr. Arana; Dr. Frey DISCHARGE SUMMARY: DATE OF ADMISSION: DATE OF DISCHARGE: 06/26/17 HISTORY OF PRESENT ILLNESS: This 32-year-old man presented with chest pain and shortness of breath. He attributed the chest pain to coughing a lot. He had his usual dialysis on 06/24/17. He had miss ed the dialysis a week before, but this probably not really relevant to this admission. He did admit to dietary indiscretion. His truck was not working and he was home all day. He was found to be in pulmonary edema. He was admitted to the ICU, given dialysis for short period of time. He improved h is oxygen saturation on room air within the 90s on the morning of discharge. He was arranged to have a dialysis in the dialysis clinic at 10:30 in the morning on the day of discharge and then will resu me his Thursday, Thursday, Thursday schedule next week. There were no medication changes at all. FINAL DIAGNOSES: 1. 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 2. Hypertension. 3. Chronic pain. 4. Migraine headaches. DISCHARGE MEDICATIONS: 1. Sevelamer 4000 mg t.i.d. with meals. 2. Ropinirole 0.5 mg b.i.d. 3. Propranolol 80 mg t.i.d. 4. Amlodipine 10 mg daily. 5. Minoxidil 10 mg b.i.d. 6. Omeprazole 40 mg daily. 7. Verapamil 240 mg daily. 8. Ondansetron ODT 4 mg every 6 hours p.r.n. 9. Patiromer Calcium Sorbitex 8.5 g as directed. 10. Senna tablet 1 daily p.r.n. 11. Divalproex ER 1500 mg h.s. and 1000 mg in the morning. 12. Sevelamer 1600 mg with the snack. 13. Methadone 5 mg every 12 hours p.r.n. pain. 14. Lorazepam 1 mg b.i.d. p.r.n. 15. Promethazine 25 mg every 6 hours p.r.n. [id number]/[facility] #: [id number]
== END 2017-06-26 10:00 | disposition home or self-care (01) ==
LOC: ED 17:02 → ICU 20:13 → INTOOBSV 20:13
PROVIDERS: ADMIT Pediatrics; ATTEND Internal Medicine
DX: R07.9 Chest pain, unspecified (principal); R06.02 Shortness of breath; Q87.81 Alport syndrome; N18.6 End stage renal disease; D63.1 Anemia in chronic kidney disease; Z99.2 Dependence on renal dialysis; E87.70 Fluid overload, unspecified; I10 Essential (primary) hypertension; G43.909 Migraine, unspecified, not intractable, without status migrainosus; Z79.899 Other long term (current) drug therapy; Z88.8 Allergy status to other drugs, medicaments and biological substances; E11.9 Type 2 diabetes mellitus without complications; G89.29 Other chronic pain; K21.9 Gastro-esophageal reflux disease without esophagitis; Z87.891 Personal history of nicotine dependence
CPT/HCPCS: 36415; 71046; 80048; 80053; 82150; 83605; 83690; 83735; 83880; 84484; 85025; 85610; 85730; 86140; 87040; 93005; 94640; 96374; 96375; 96376; 99285; 99291; A9270-GY; G0378; J0360; J0610; J2270; J2405

== ENCOUNTER 2017-06-28 21:15 | Emergency (ER) | payer BC ==
[2017-06-28] MEDS ORDERED: NS 0.9% 1000 ML* 1,000 ML IV ONE (21:50)
[2017-06-28] MEDS ORDERED: Ondansetron INJ* 2 MG/ML VIAL IV ONE (21:50)
--- NOTE | 2017-06-28 22:28 | ED ---
Nausea/Vomiting/Diarrhea HPI - HPI Summary HPI Summary: Patient with history of dialysis complains of persistent N/V, generalized abdominal pain, inability to keep meds or foods down starting today. Last dialysis Thursday. Dialysis MWF. Next appt thursday 5:30 am. Recent admission to [facility] for fluid overload and hyperkalemia. History of chronic intermittent N/V. denies fever, cough, sore throat, CP, SOB, diarrhea, change in urinary BM. Medical history is kidney failure, HTN. - History of Current Complaint Chief Complaint: EDNauseaVomitDiarrh Stated Complaint: NAUSEA/VOMITING/HEADACHE Time Seen by Provider: 06/28/17 21:48 Hx Obtained From: Patient, Family/Forensic Investigator Onset/Duration: Sudden Onset Timing: Constant Severity Initially: Severe Severity Currently: Severe Pain Intensity: 10 Pain Scale Used: 0-10 Numeric Location: Diffuse Character: Cramping Aggravating Factor(s): Nothing Alleviating Factor(s): Nothing Nausea/Vomiting Presence: Nauseated, Vomiting Vomiting Characteristics: Retching, Bilious Diarrhea Presence: No - Risk Factors Influenza Risk Factors: Negative Surgical Obstruction Risk Factor(s): Negative - Allergies/Home Medications Allergies/Adverse Reactions: Allergies Allergy/AdvReac Type Severity Reaction Status Date / Time aspirin Allergy Unknown Verified 06/28/17 21:39 Reaction Details gabapentin Allergy twitching, Verified 06/28/17 21:39 double vision hydrocodone Allergy twitching Verified 06/28/17 21:39 PMH/Surg Hx/FS Hx/Imm Hx Endocrine/Hematology History: Reports: Hx Anticoagulant Therapy, Hx Blood Transfusions - February 2016, Hx Anemia Denies: Hx Blood Disorders, Hx Bone Marrow Disease, Hx Diabetes, Hx Systemic Lupus Erythematosus, Hx Sickle Cell Disease, Hx Thyroid Disease, Hx Unexplained Bleeding, Other Endocrine/Hematological Disorders Cardiovascular History: Reports: Hx Congestive Heart Failure - Probable 09/18/16 , Hx Embolism - PE, Hx Hypertension - ON MEDICATION FOR, Other Cardiovascular Problems/Disorders - RT.KIDNEY TRANSPLANT FAILED AND REMOVED/DIALYSIS Denies: Hx Aneurysm, Hx Angina, Hx Angioplasty, Hx Auto Implanted Cardiovert Defib, Hx Cardiac Arrest, Hx Cardiomegaly, Hx Congenital Heart Disease, Hx Coronary Artery Disease, Hx Deep Vein Thrombosis, Hx Hypercholesterolemia, Hx Hypotension, Hx Pacemaker/ICD, Hx Peripheral Vascular Disease, Hx Rheumatic Fever, Hx Syncope, Hx Valvular Heart Disease Respiratory History: Reports: Hx Pulmonary Edema - Flash pulmonary edema resulting in CPR 09/02/16, Other Respiratory Problems/Disorders - "left lung repaired for pneumothorax in 2006 Denies: Hx Asthma, Hx Chronic Bronchitis, Hx Chronic Obstructive Pulmonary Disease (COPD), Hx Cystic Fibrosis, Hx Lung Cancer, Hx Pleural Effusion, Hx Pneumonia, Hx Pulmonary Embolism, Hx Seasonal Allergies, Hx Sleep Apnea GI History: Denies: Hx Cirrhosis, Hx Crohn's Disease, Hx Diverticulosis, Hx Gall Bladder Disease, Hx Gastroesophageal Reflux Disease, Hx Gastrointestinal Bleed, Hx Hiatal Hernia, Hx Irritable Bowel, Hx Jaundice, Hx Obstructive Bowel, Hx Ileostomy, Hx Pyloric Stenosis, Hx Ulcer, Other GI Disorders History: Reports: Hx Acute Renal Failure, Hx Chronic Renal Failure, Hx Dialysis, Hx Renal Disease - TRANSPLANT - RT, dialysis every Mon., Wed., Thu., Other Problems/Disorders - DIALYSIS Denies: Hx Benign Prostatic Hyperplasia, Hx Kidney Infection, Hx Kidney Stones Musculoskeletal History: Reports: Hx Back Problems - chronic back pain Denies: Hx Arthritis, Hx Bursitis, Hx Congenital Bone Abnormalities, Hx Fibromyalgia, Hx Gout, Hx Orthopedic Injury, Hx Osteoporosis, Hx Scoliosis, Hx Tendonitis, Other Musculoskeletal History Sensory History: Reports: Hx Deafness, Hx Hearing Aid, Hx Hearing Problem - moderate hearing loss bilat ears, Other Sensory Impairments - Photophobia Denies: Hx Cataracts, Hx Contacts or Glasses, Hx Eye Injury, Hx Eye Prosthesis, Hx Glaucoma, Hx Legally Blind, Hx Macular Degeneration, Hx Vision Problem Opthamlomology History: Reports: Other Sensory Impairments - Photophobia Denies: Hx Cataracts, Hx Contacts or Glasses, Hx Eye Injury, Hx Eye Prosthesis, Hx Glaucoma, Hx Legally Blind, Hx Macular Degeneration, Hx Vision Problem Neurological History: Reports: Hx Headaches, Hx Migraine - 1-2 PER MONTH, Hx Seizures - September 2016, Other Neuro Impairments/Disorders - Restless leg syndrome Denies: Hx Dementia, Hx Developmental Delay, Hx Nerve Disease, Hx Spinal Cord Injury, Hx Transient Ischemic Attacks (TIA) Psychiatric History: Reports: Hx Anxiety - NEW-STATES MD IS AWARE, Hx Depression - NEW-STATES MD IS AWARE Denies: Hx Attention Deficit Hyperactivity Disorder, Hx Eating Disorder, Hx Panic Disorder, Hx Post Traumatic Stress Disorder, Hx Inpatient Treatment, Hx Community Mental Health Tx, Hx Schizophrenia, Hx Bipolar Disorder, Hx Suicide Attempt, Hx of Violent Episodes Against Others, Hx Substance Abuse, Other Psychiatric Issues/Disorders - Cancer History Hx Chemotherapy: No Hx Radiation Therapy: No Hx Palliative Cancer Treatment: No - Surgical History Surgery Procedure, Year, and Place: 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[place], [place]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; LEFT LUNG SX FOR REPAIR; LEFT ARM FISTULA FOR DIALISYS 2015, RIGHT CHEST WALL CATH FOR DIALYSIS; RIGHT NEPHRECTOMY - kidney rejected, 2016 Hx Anesthesia Reactions: No - Immunization History Date of Tetanus Vaccine: unk Date of Influenza Vaccine: unk Infectious Disease History: No Infectious Disease History: Denies: Hx Hepatitis, Hx of Known/Suspected MRSA, Hx Shingles, Hx Tuberculosis, History Other Infectious Disease, Traveled Outside the [place] in Last 30 Days - Family History Known Family History: Positive: None, Other - Mother carrier of alport disease gene Negative: Blood Disorder - Social History Alcohol Use: None Alcohol Amount: Once per month before getting sick in February Hx Substance Use: No Substance Use Type: Reports: None Hx Tobacco Use: Yes Smoking Status (MU): Former Smoker Type: Cigarettes Amount Used/How Often: 1 PPD X 4 YEARS Have You Smoked in the Last Year: No Review of Systems Constitutional: Negative Eyes: Negative ENT: Negative Cardiovascular: Negative Respiratory: Negative Positive: Abdominal Pain, Vomiting, Nausea Genitourinary: Negative Musculoskeletal: Negative Skin: Negative Neurological: Negative Positive: Anxious All Other Systems Reviewed And Are Negative: Yes Physical Exam - Summary Physical Exam Summary: Diffuse mild tenderness on abdomen exam. Patient active vomiting. Triage Information Reviewed: Yes Vital Signs On Initial Exam: Initial Vitals Temp Pulse Resp BP Pulse Ox 97.5 F 77 18 139/84 100 06/28/17 21:36 06/28/17 21:36 06/28/17 21:36 06/28/17 21:36 06/28/17 21:36 Vital Signs Reviewed: Yes Appearance: Positive: Ill-Appearing Skin: Positive: Warm Head/Face: Positive: Normal Head/Face Inspection Eyes: Positive: Normal Neck: Positive: Supple Respiratory/Lung Sounds: Positive: Clear to Auscultation Cardiovascular: Positive: Normal Musculoskeletal: Positive: Normal Neurological: Positive: Normal Psychiatric: Positive: Normal AVPU Assessment: Alert - [place] Coma Scale Best Eye Response: 4 - Spontaneous Best Motor Response: 6 - Obeys Commands Best Verbal Response: 5 - Oriented Coma Scale Total: 15 Diagnostics - Vital Signs Vital Signs Temp Pulse Resp BP Pulse Ox 06/28/17 21:36 97.5 F 77 18 139/84 100 - Laboratory Result Diagrams: 06/28/17 22:16 06/28/17 22:16 Lab Statement: Any lab studies that have been ordered have been reviewed, and results considered in the medical decision making process. - EKG 1 Cardiac Rate: NL EKG Rhythm: Sinus Rhythm Ectopy: None EKG Interpretation: peaked t waves Re-Evaluation - Re-Evaluation 1 Re-Evaluation Time: 00:10 Comment: Nausea control with IV Zofran. pt sleeping in exam room 2 Re-Evaluation Time: 03:15 Comment: Repeat lipase 114. Constipation per CT Naus/Vom/Diarrhea Course/Dx - Course Course Of Treatment: Patient will be discharged home with bowel regimen and Phenergan suppositories for nausea control. Patient has dialysis appointment today at 5:30 am in 2 hrs. discussed patient with hospitalist and with Dr. Sorto. Agreed patient to be discharged home with follow-up in dialysis in 2 hours. - Differential Dx/Diagnosis Provider Diagnoses: Hyperkalemia. Elevated lipase. Persistent nausea vomiting. Elevated creatinine Condition At Discharge: Stable Discharge - Sign-Out/Discharge Documenting (check all that apply): Discharge - Discharge Plan Condition: Stable Disposition: ADMITTED TO [facility] Prescriptions: Polyethylene Glycol 3350* [Miralax*] 17 gm PO DAILY #20 packet Promethazine SUPP* [Phenergan Supp*] 25 mg OR Q6H PRN 4 Days #16 supp PRN Reason: Nausea Patient Education Materials: Constipation (ED), High Fiber Diet (ED), Acute Nausea and Vomiting (ED) Referrals: Christa Frey MD [Primary Care Provider] - Additional Instructions: Follow-up with her dialysis appointment later today, and primary care. Take MiraLAX daily for relief of constipation. Return to the ED for any new or worsening symptoms - Billing Disposition and Condition Condition: STABLE Disposition: [facility]OSP-[facility]
[2017-06-28 22:35] LABS: ABS Basophils 0.1 10^3/ul (0-0.2); ABS Eosinophils 0.2 10^3/ul (0-0.6); ABS Lymphocytes 1.4 10^3/ul (1.0-4.8); ABS Monocytes 0.5 10^3/ul (0-0.8); ABS Nucleated RBC 0 10^3/ul; Eosinophil % 4.6 % (0-6); Hematocrit 28 % (42-52); Hemoglobin 9.5 g/dl (14.0-18.0); Lymphocyte % 26.2 % (25-47); Mean Corpuscular HGB Conc 34 g/dl (31-36); Mean Corpuscular Hemoglobin 30 pg (27-31); Mean Corpuscular Volume 90 fL (80-94); Mean Platelet Volume 7.6 um3 (7.4-10.4); Nucleated Red Blood Cells % 0; Platelet Count 287 10^3/ul (150-450); Red Blood Count 3.13 10^6/ul (4.0-5.4); Red Cell Distribution Width 16 % (10.5-15); White Blood Count 5.2 10^3/ul (3.5-10.8)
[2017-06-28 22:55] LABS: EGFR Non-African American 5.8 (>60)
[2017-06-29 03:42] VITALS: BP 122/50
--- NOTE | 2017-06-29 08:17 | RAD ---
INDICATION: Abdominal pain. Elevated lipase. Acute renal failure. History of failed renal transplant. COMPARISON: February 19, 2016 CT. TECHNIQUE: Multidetector CT images were obtained from the lung bases to the ischial tuberosities. Evaluation of the viscera is limited without IV contrast. Multiplanar reformation. REPORT: Mild bilateral dependent atelectasis. No CT abnormality of the unenhanced liver, gallbladder, pancreas, spleen. Negative for CT abnormality of the upper GI and small bowel. Upper normal size appendix with hyperdense luminal contents which may represent residual enteric contrast or hyperdense food stuff for pharmaceutical. An early long segment appendicolith is not excluded. No compelling secondary findings to favor acute appendicitis. Mild diverticulosis of the sigmoid colon without findings of acute diverticulitis. Small volume of ascites. No peritoneal dialysis catheter evident. Negative for free air. Negative for hernias. Normal adrenal glands. Markedly atrophic [place] kidneys. Negative for hydronephrosis. Decompressed urinary bladder. Negative for lymphadenopathy. Postsurgical change of the RIGHT lower abdominal wall without acute inflammatory change. Negative for suspicious focal osseous lesions. IMPRESSION: 1. Small volume of ascites. Negative for free air. 2. Upper normal size appendix with hyperdense luminal contents which may represent residual enteric contrast or hyperdense food stuff for pharmaceutical. An early long segment appendicolith is not excluded. No compelling secondary findings to favor acute appendicitis. 3. Mild diverticulosis of the sigmoid colon without findings of acute diverticulitis.
== END 2017-06-29 03:40 | disposition short-term general hospital (02) ==
LOC: ED 21:15
DX: E87.5 Hyperkalemia (principal); R11.2 Nausea with vomiting, unspecified; Z87.891 Personal history of nicotine dependence; R74.8 Abnormal levels of other serum enzymes; R79.89 Other specified abnormal findings of blood chemistry
CPT/HCPCS: 36415; 74176; 80053; 83605; 83690; 85025; 93005; 96374; 99284; J2405

== ENCOUNTER 2017-08-13 16:45 | Emergency (ER) | payer BC ==
--- NOTE | 2017-08-13 19:45 | RAD ---
Indication: Left shoulder pain. Real-time sonography of the deep venous system of the left upper extremities noted. Bilateral internal jugular vein appear patent with normal phasic flow. Subclavian veins demonstrates normal phasic flow. The left axillary vein and brachial vein are patent. The cephalic vein is patent. Radial and ulnar vein are patent. High flow is noted in the cephalic vein and subclavian vein consistent with patient's AV fistula. IMPRESSION: No evidence of deep venous thrombosis of the left M venous system with an AV fistula in place.
[2017-08-13] MEDS ORDERED: Promethazine INJ(RESTRICTED)* 25 MG/ML 1 ML VIAL IM ONE (20:10)
[2017-08-13] MEDS ORDERED: HYDROmorphone INJ* 2 MG/ML CARPUJECT SYRINGE IM ONE (20:11)
[2017-08-13] MEDS ORDERED: PROCHLORPERAZINE INJ 5 MG/ML 2 ML VIAL ONE (20:37)
[2017-08-13] MEDS ORDERED: PROCHLORPERAZINE INJ 5 MG/ML 2 ML VIAL IM ONE (20:39)
--- NOTE | 2017-08-13 23:15 | ED ---
Griffin Alejandro Angela, scribed for Leticia Coleman MD on 08/13/17 at 2011 . Upper Extremity Pain - HPI Summary HPI Summary: This pt is a 32 y/o male presenting to [facility] c/o left shoulder pain for the past 2 days. Pt reports his pain has been worsening over the past 2 days. He denies any injury or trauma to his shoulder. Pt states he has not slept on his left shoulder in 2 days. Denies fever, swelling, chest XR, nausea, vomiting. He is a dialysis pt and the last time he had dialysis was yesterday morning (Thu , 08/12/17). Pt is due for the next dialysis tomorrow. Pt usually takes Methadone for neuropathy and headaches, but has not taken this medication in 3 days. - History of Current Complaint Chief Complaint: EDExtremityUpper Stated Complaint: PAIN RT SHOULDER Time Seen by Provider: 08/13/17 17:19 Hx Obtained From: Patient Mechanism Of Injury: Other - no trauma Onset/Duration: Started Days Ago, Still Present Timing: Lasting Days Pain Location: Shoulder - left Aggravating Factor(s): Other - palpation Alleviating Factor(s): Rest Associated Signs & Symptoms: Negative: Swelling, Fever, Back Pain, Diaphoresis, Nausea, Vomiting - Allergies/Home Medications Allergies/Adverse Reactions: Allergies Allergy/AdvReac Type Severity Reaction Status Date / Time aspirin Allergy Unknown Verified 08/13/17 16:55 Reaction Details gabapentin Allergy twitching, Verified 08/13/17 16:55 double vision hydrocodone Allergy twitching Verified 08/13/17 16:55 PMH/Surg Hx/FS Hx/Imm Hx Endocrine/Hematology History: Reports: Hx Anticoagulant Therapy, Hx Blood Transfusions - February 2016, Hx Anemia Denies: Hx Blood Disorders, Hx Bone Marrow Disease, Hx Diabetes, Hx Systemic Lupus Erythematosus, Hx Sickle Cell Disease, Hx Thyroid Disease, Hx Unexplained Bleeding, Other Endocrine/Hematological Disorders Cardiovascular History: Reports: Hx Congestive Heart Failure - Probable 09/18/16 , Hx Embolism - PE, Hx Hypertension - ON MEDICATION FOR, Other Cardiovascular Problems/Disorders - RT.KIDNEY TRANSPLANT FAILED AND REMOVED/DIALYSIS Denies: Hx Aneurysm, Hx Angina, Hx Angioplasty, Hx Auto Implanted Cardiovert Defib, Hx Cardiac Arrest, Hx Cardiomegaly, Hx Congenital Heart Disease, Hx Coronary Artery Disease, Hx Deep Vein Thrombosis, Hx Hypercholesterolemia, Hx Hypotension, Hx Pacemaker/ICD, Hx Peripheral Vascular Disease, Hx Rheumatic Fever, Hx Syncope, Hx Valvular Heart Disease Respiratory History: Reports: Hx Pulmonary Edema - Flash pulmonary edema resulting in CPR 09/02/16, Other Respiratory Problems/Disorders - "left lung repaired for pneumothorax in 2006 Denies: Hx Asthma, Hx Chronic Bronchitis, Hx Chronic Obstructive Pulmonary Disease (COPD), Hx Cystic Fibrosis, Hx Lung Cancer, Hx Pleural Effusion, Hx Pneumonia, Hx Pulmonary Embolism, Hx Seasonal Allergies, Hx Sleep Apnea GI History: Denies: Hx Cirrhosis, Hx Crohn's Disease, Hx Diverticulosis, Hx Gall Bladder Disease, Hx Gastroesophageal Reflux Disease, Hx Gastrointestinal Bleed, Hx Hiatal Hernia, Hx Irritable Bowel, Hx Jaundice, Hx Obstructive Bowel, Hx Ileostomy, Hx Pyloric Stenosis, Hx Ulcer, Other GI Disorders History: Reports: Hx Acute Renal Failure, Hx Chronic Renal Failure, Hx Dialysis, Hx Renal Disease - TRANSPLANT - RT, dialysis every Mon., Wed., Fri., Other Problems/Disorders - DIALYSIS Denies: Hx Benign Prostatic Hyperplasia, Hx Kidney Infection, Hx Kidney Stones Musculoskeletal History: Reports: Hx Back Problems - chronic back pain Denies: Hx Arthritis, Hx Bursitis, Hx Congenital Bone Abnormalities, Hx Fibromyalgia, Hx Gout, Hx Orthopedic Injury, Hx Osteoporosis, Hx Scoliosis, Hx Tendonitis, Other Musculoskeletal History Sensory History: Reports: Hx Deafness, Hx Hearing Aid, Hx Hearing Problem - moderate hearing loss bilat ears, Other Sensory Impairments - Photophobia Denies: Hx Cataracts, Hx Contacts or Glasses, Hx Eye Injury, Hx Eye Prosthesis, Hx Glaucoma, Hx Legally Blind, Hx Macular Degeneration, Hx Vision Problem Opthamlomology History: Reports: Other Sensory Impairments - Photophobia Denies: Hx Cataracts, Hx Contacts or Glasses, Hx Eye Injury, Hx Eye Prosthesis, Hx Glaucoma, Hx Legally Blind, Hx Macular Degeneration, Hx Vision Problem Neurological History: Reports: Hx Headaches, Hx Migraine - 1-2 PER MONTH, Hx Seizures - September 2016, Other Neuro Impairments/Disorders - Restless leg syndrome Denies: Hx Dementia, Hx Developmental Delay, Hx Nerve Disease, Hx Spinal Cord Injury, Hx Transient Ischemic Attacks (TIA) Psychiatric History: Reports: Hx Anxiety - NEW-STATES MD IS AWARE, Hx Depression - NEW-STATES MD IS AWARE Denies: Hx Attention Deficit Hyperactivity Disorder, Hx Eating Disorder, Hx Panic Disorder, Hx Post Traumatic Stress Disorder, Hx Inpatient Treatment, Hx Community Mental Health Tx, Hx Schizophrenia, Hx Bipolar Disorder, Hx Suicide Attempt, Hx of Violent Episodes Against Others, Hx Substance Abuse, Other Psychiatric Issues/Disorders - Cancer History Hx Chemotherapy: No Hx Radiation Therapy: No Hx Palliative Cancer Treatment: No - Surgical History Surgery Procedure, Year, and Place: 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[place], [place]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; LEFT LUNG SX FOR REPAIR; LEFT ARM FISTULA FOR DIALISYS 2015, RIGHT CHEST WALL CATH FOR DIALYSIS; RIGHT NEPHRECTOMY - kidney rejected, 2016 Hx Anesthesia Reactions: No - Immunization History Date of Tetanus Vaccine: unk Date of Influenza Vaccine: unk Infectious Disease History: No Infectious Disease History: Denies: Hx Hepatitis, Hx of Known/Suspected MRSA, Hx Shingles, Hx Tuberculosis, History Other Infectious Disease, Traveled Outside the [place] in Last 30 Days - Family History Known Family History: Positive: Other - Mother carrier of alport disease gene Negative: Blood Disorder - Social History Alcohol Use: None Alcohol Amount: Once per month before getting sick in February Hx Substance Use: No Substance Use Type: Reports: None Hx Tobacco Use: Yes Smoking Status (MU): Former Smoker Type: Cigarettes Amount Used/How Often: 1 PPD X 4 YEARS Have You Smoked in the Last Year: No Review of Systems Negative: Fever, Chills Negative: Chest Pain Negative: Vomiting, Nausea Musculoskeletal: Other - Left shoulder pain Negative: Edema Negative: Weakness, Paresthesia, Numbness All Other Systems Reviewed And Are Negative: Yes Physical Exam - Summary Physical Exam Summary: VITAL SIGNS: Reviewed. GENERAL: Patient is a well-developed and nourished male who is lying comfortable in the stretcher. Patient is not in any acute respiratory distress. HEAD AND FACE: No signs of trauma. No ecchymosis, hematomas or skull depressions. No sinus tenderness. EYES: PERRLA, EOMI x 2, No injected conjunctiva, no nystagmus. EARS: Hearing grossly intact. Ear canals and tympanic membranes are within normal limits. MOUTH: Oropharynx within normal limits. NECK: Supple, trachea is midline, no adenopathy, no JVD, no carotid bruit, no c- spine tenderness, neck with full ROM. CHEST: Symmetric, no tenderness at palpation LUNGS: Clear to auscultation bilaterally. No wheezing or crackles. CVS: Regular rate and rhythm, S1 and S2 present, no murmurs or gallops appreciated. ABDOMEN: Soft, non-tender. No signs of distention. No rebound no guarding, and no masses palpated. Bowel sounds are normal. EXTREMITIES: no edema, no cyanosis or clubbing. LUE: Tenderness over the anterior part of the left shoulder. Decreased ROM secondary to pain. Good thrill over the fistula. NEURO: Alert and oriented x 3. No acute neurological deficits. Speech is normal and follows commands. SKIN: Dry and warm Triage Information Reviewed: Yes Vital Signs On Initial Exam: Initial Vitals Temp Pulse Resp BP Pulse Ox 99.8 F 74 18 165/103 100 08/13/17 16:47 08/13/17 16:47 08/13/17 16:47 08/13/17 16:47 08/13/17 16:47 Vital Signs Reviewed: Yes Diagnostics - Vital Signs Vital Signs Temp Pulse Resp BP Pulse Ox 08/13/17 16:47 99.8 F 74 18 165/103 100 - Laboratory Lab Statement: Any lab studies that have been ordered have been reviewed, and results considered in the medical decision making process. - Ultrasound No standard instances Ultrasound Interpretation: No Acute Changes - Left upper extremity US IMPRESSION : No evidence of deep venous thrombosis of the left M venous system with an AV fistula in place. Dr. Coleman has reviewed this radiology report. Ultrasound Interpretation Completed By: Radiologist - Additional Comments Diagnostic Additional Comments: Left Shoulder MRI, as read by radiologist IMPRESSION: There is no marrow edema. There is no evidence of osteomyelitis. There is no obvious shoulder joint effusion. No fracture seen. Dr. Coleman has reviewed this radiology report. Re-Evaluation - Re-Evaluation First Eval Re-Evaluation Time: 23:01 Change: Improved Comment: Pt is feeling better after medications. He is able to move arms. I reviewed the MRI results with the pt. Course/Dx - Course Assessment/Plan: Pt is a 32 y/o male who presents with left shoulder pain for the past 2 days. Pt reports his pain has been worsening over the past 2 days. He denies any injury or trauma to his shoulder. He is a dialysis pt and the last time he had dialysis was yesterday (08/12/17). LUE ultrasound shows no evidence of deep venous thrombosis of the left M venous system with an AV fistula in place. Left shoulder MRI reveals There is no marrow edema. There is no evidence of osteomyelitis. There is no obvious shoulder joint effusion. No fracture seen. In the ED course the pt was given Dilaudid, Compazine. After these medications pt is feeling better and is able to move both arms now. He will be discharged home with follow up from orthopedics. Pt will be given prescription for Percocet. He is instructed to return to the ED for any worsening symptoms. - Diagnoses Provider Diagnoses: Left shoulder pain Discharge - Sign-Out/Discharge Documenting (check all that apply): Discharge/Admit/Transfer - Discharge - Discharge Plan Condition: Stable Disposition: HOME Patient Education Materials: Shoulder Pain (ED) Referrals: Christa Frey MD [Primary Care Provider] - Christine Meneses MD [Medical Doctor] - 1 Day (Tomorrow, 08/14/17.) Additional Instructions: Please call and make up an appointment with Dr. Meneses, orthopedist, to be seen tomorrow for a follow up. RETURN TO EMERGENCY DEPARTMENT FOR ANY NEW OR WORSENING SYMPTOMS. The documentation as recorded by the Griffin florence Angela accurately reflects the service I personally performed and the decisions made by , Leticia Coleman MD.
[2017-08-13 23:26] VITALS: BP 120/89
--- NOTE | 2017-08-14 07:40 | RAD ---
INDICATION: Left shoulder pain evaluate for osteomyelitis. COMPARISON: There are no prior studies available for comparison. TECHNIQUE: Axial, sagittal and coronal T1 and T2-weighted images of the left shoulder were obtained. The exam is limited due to motion artifact. FINDINGS: The bones are in normal alignment. No bone marrow edema or fracture is seen. There is no evidence for osteomyelitis. No joint effusion is present. No effusion is noted within the subacromial subdeltoid bursa. The rotator cuff tendons appear intact without evidence for tear or tendinosis. There is soft tissue swelling and fluid tracking anterior to the subscapularis muscle and tendon. There also appears to be edema within the short head of the biceps and coracobrachialis muscles suggestive of a muscle strain. Recommend clinical correlation. The study is not set up to evaluate for this particular abnormality and was protocoled to evaluate for osteomyelitis. The long head of the biceps tendon appears intact. The glenoid labrum is grossly intact. There is a dilated vascular structure present anterior to the shoulder. The patient has a history of a dialysis fistula in the left arm. IMPRESSION: 1. NO EVIDENCE FOR OSTEOMYELITIS. 2. NONSPECIFIC FLUID AND EDEMA ANTERIOR TO THE SUBSCAPULARIS MUSCLE AND EDEMA WITHIN THE SHORT HEAD OF THE BICEPS AND CORACOBRACHIALIS MUSCLES SUGGESTING THE POSSIBILITY OF A MUSCLE STRAIN OR PARTIAL TEARS LESS LIKELY AN INFECTIOUS PROCESS. RECOMMEND CLINICAL CORRELATION AND FOLLOW-UP.
== END 2017-08-13 23:25 | disposition home or self-care (01) ==
LOC: ED 16:45
DX: I13.2 Hypertensive heart and chronic kidney disease with heart failure and with stage 5 chronic kidney disease, or end stage renal disease (principal); I50.9 Heart failure, unspecified; N18.6 End stage renal disease; Z99.2 Dependence on renal dialysis; T86.12 Kidney transplant failure; G62.9 Polyneuropathy, unspecified; R51 Headache; Z87.891 Personal history of nicotine dependence; Z79.899 Other long term (current) drug therapy; Z88.4 Allergy status to anesthetic agent; Z88.5 Allergy status to narcotic agent
CPT/HCPCS: 96372; 99282; J0780; J1170; J2550

== ENCOUNTER 2017-09-28 19:10 | Emergency (ER) | payer BC ==
[2017-09-28] MEDS ORDERED: PROCHLORPERAZINE INJ 5 MG/ML 2 ML VIAL IV ONE (20:18)
[2017-09-28] MEDS ORDERED: diPHENhydraMINE IV* 50 MG/ML 1 ml VIAL (BENADRYL) IV ONE (20:19)
[2017-09-28] MEDS ORDERED: Morphine VIAL* 4 MG/ML VIAL (1 ml vial) IV ONE ×2 (20:19→23:08)
[2017-09-28 20:28] LABS: ABS Basophils 0.1 10^3/ul (0-0.2); ABS Eosinophils 0.1 10^3/ul (0-0.6); ABS Lymphocytes 0.8 10^3/ul (1.0-4.8); ABS Monocytes 0.3 10^3/ul (0-0.8); ABS Neutrophils 4.6 10^3/ul (1.5-7.7); ABS Nucleated RBC 0 10^3/ul; Eosinophil % 1.7 % (0-6); Hematocrit 35 % (42-52); Hemoglobin 12.1 g/dl (14.0-18.0); Mean Corpuscular HGB Conc 34 g/dl (31-36); Mean Corpuscular Hemoglobin 31 pg (27-31); Mean Corpuscular Volume 90 fL (80-94); Nucleated Red Blood Cells % 0; Platelet Count 188 10^3/ul (150-450); Red Blood Count 3.95 10^6/ul (4.00-5.40); Red Cell Distribution Width 13 % (10.5-15); White Blood Count 5.8 10^3/ul (3.5-10.8)
[2017-09-28] MEDS ORDERED: Labetalol IV* 5 MG/ML 20 ML VIAL IV PUSH ONE (20:39)
[2017-09-28 20:44] LABS: EGFR Non-African American 6.2 (>60)
[2017-09-28] MEDS ORDERED: Morphine INJ* 2 MG/ML 1 ML SYRINGE (TWO MG - NEW SYRINGE VERSION) ONE (21:33)
[2017-09-28] MEDS ORDERED: hydrALAZINE TAB* 25 MG PO ONE (22:21)
--- NOTE | 2017-09-28 23:58 | ED ---
Headache - HPI Summary HPI Summary: 32-year-old male presents with headache today. This is not the worst headache of his life. He states that after dialysis today he developed a headache. He states that it started with the nausea and vomiting. He states that his headache is generalized. He has history of migraines. He states there is nothing different about the headache. He states he has not been able to keep any of his blood pressure medications down due to the vomiting. He states he has a cycle of this for his blood pressure gets out of control he cannot control it due to the vomiting. He had dialysis today. He has dialysis Thursday. He denies any chest pain or shortness breath. no abdominal pain. he tried zofran odt without relief. He admits to photophobia but no change in vision. He denies any dizziness. He was not able to keep his bp meds down today. - History Of Current Complaint Chief Complaint: EDGeneral Stated Complaint: GENERAL ILLNESS Time Seen by Provider: 09/28/17 20:11 - Allergies/Home Medications Allergies/Adverse Reactions: Allergies Allergy/AdvReac Type Severity Reaction Status Date / Time aspirin Allergy Unknown Verified 09/28/17 19:23 Reaction Details gabapentin Allergy twitching, Verified 09/28/17 19:23 double vision hydrocodone Allergy twitching Verified 09/28/17 19:23 PMH/Surg Hx/FS Hx/Imm Hx Endocrine/Hematology History: Reports: Hx Anticoagulant Therapy, Hx Blood Transfusions - February 2016, Hx Anemia Denies: Hx Blood Disorders, Hx Bone Marrow Disease, Hx Diabetes, Hx Systemic Lupus Erythematosus, Hx Sickle Cell Disease, Hx Thyroid Disease, Hx Unexplained Bleeding, Other Endocrine/Hematological Disorders Cardiovascular History: Reports: Hx Congestive Heart Failure - Probable 09/18/16 , Hx Embolism - PE, Hx Hypertension - ON MEDICATION FOR, Other Cardiovascular Problems/Disorders - RT.KIDNEY TRANSPLANT FAILED AND REMOVED/DIALYSIS Denies: Hx Aneurysm, Hx Angina, Hx Angioplasty, Hx Auto Implanted Cardiovert Defib, Hx Cardiac Arrest, Hx Cardiomegaly, Hx Congenital Heart Disease, Hx Coronary Artery Disease, Hx Deep Vein Thrombosis, Hx Hypercholesterolemia, Hx Hypotension, Hx Pacemaker/ICD, Hx Peripheral Vascular Disease, Hx Rheumatic Fever, Hx Syncope, Hx Valvular Heart Disease Respiratory History: Reports: Hx Pulmonary Edema - Flash pulmonary edema resulting in CPR 09/02/16, Other Respiratory Problems/Disorders - "left lung repaired for pneumothorax in 2006 Denies: Hx Asthma, Hx Chronic Bronchitis, Hx Chronic Obstructive Pulmonary Disease (COPD), Hx Cystic Fibrosis, Hx Lung Cancer, Hx Pleural Effusion, Hx Pneumonia, Hx Pulmonary Embolism, Hx Seasonal Allergies, Hx Sleep Apnea GI History: Denies: Hx Cirrhosis, Hx Crohn's Disease, Hx Diverticulosis, Hx Gall Bladder Disease, Hx Gastroesophageal Reflux Disease, Hx Gastrointestinal Bleed, Hx Hiatal Hernia, Hx Irritable Bowel, Hx Jaundice, Hx Obstructive Bowel, Hx Ileostomy, Hx Pyloric Stenosis, Hx Ulcer, Other GI Disorders History: Reports: Hx Acute Renal Failure, Hx Chronic Renal Failure, Hx Dialysis, Hx Renal Disease - TRANSPLANT - RT, dialysis every Mon., Wed., Thu., Other Problems/Disorders - DIALYSIS Denies: Hx Benign Prostatic Hyperplasia, Hx Kidney Infection, Hx Kidney Stones Musculoskeletal History: Reports: Hx Back Problems - chronic back pain Denies: Hx Arthritis, Hx Bursitis, Hx Congenital Bone Abnormalities, Hx Fibromyalgia, Hx Gout, Hx Orthopedic Injury, Hx Osteoporosis, Hx Scoliosis, Hx Tendonitis, Other Musculoskeletal History Sensory History: Reports: Hx Deafness, Hx Hearing Aid, Hx Hearing Problem - moderate hearing loss bilat ears, Other Sensory Impairments - Photophobia Denies: Hx Cataracts, Hx Contacts or Glasses, Hx Eye Injury, Hx Eye Prosthesis, Hx Glaucoma, Hx Legally Blind, Hx Macular Degeneration, Hx Vision Problem Opthamlomology History: Reports: Other Sensory Impairments - Photophobia Denies: Hx Cataracts, Hx Contacts or Glasses, Hx Eye Injury, Hx Eye Prosthesis, Hx Glaucoma, Hx Legally Blind, Hx Macular Degeneration, Hx Vision Problem Neurological History: Reports: Hx Headaches, Hx Migraine - 1-2 PER MONTH, Hx Seizures - September 2016, Other Neuro Impairments/Disorders - Restless leg syndrome Denies: Hx Dementia, Hx Developmental Delay, Hx Nerve Disease, Hx Spinal Cord Injury, Hx Transient Ischemic Attacks (TIA) Psychiatric History: Reports: Hx Anxiety - NEW-STATES MD IS AWARE, Hx Depression - NEW-STATES MD IS AWARE Denies: Hx Attention Deficit Hyperactivity Disorder, Hx Eating Disorder, Hx Panic Disorder, Hx Post Traumatic Stress Disorder, Hx Inpatient Treatment, Hx Community Mental Health Tx, Hx Schizophrenia, Hx Bipolar Disorder, Hx Suicide Attempt, Hx of Violent Episodes Against Others, Hx Substance Abuse, Other Psychiatric Issues/Disorders - Cancer History Hx Chemotherapy: No Hx Radiation Therapy: No Hx Palliative Cancer Treatment: No - Surgical History Surgery Procedure, Year, and Place: 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[place], [place]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; LEFT LUNG SX FOR REPAIR; LEFT ARM FISTULA FOR DIALISYS 2015, RIGHT CHEST WALL CATH FOR DIALYSIS; RIGHT NEPHRECTOMY - kidney rejected, 2016 Hx Anesthesia Reactions: No - Immunization History Date of Tetanus Vaccine: unk Date of Influenza Vaccine: unk Infectious Disease History: No Infectious Disease History: Denies: Hx Hepatitis, Hx of Known/Suspected MRSA, Hx Shingles, Hx Tuberculosis, History Other Infectious Disease, Traveled Outside the [place] in Last 30 Days - Family History Known Family History: Positive: None, Other - Mother carrier of alport disease gene Negative: Blood Disorder - Social History Alcohol Use: None Alcohol Amount: Once per month before getting sick in February Hx Substance Use: No Substance Use Type: Reports: None Hx Tobacco Use: Yes Smoking Status (MU): Former Smoker Type: Cigarettes Amount Used/How Often: 1 PPD X 4 YEARS Have You Smoked in the Last Year: No Review of Systems Negative: Fever Negative: Chest Pain Negative: Shortness Of Breath Positive: Vomiting, Nausea. Negative: Abdominal Pain Positive: Headache All Other Systems Reviewed And Are Negative: Yes Physical Exam Triage Information Reviewed: Yes Vital Signs On Initial Exam: Initial Vitals Temp Pulse Resp BP Pulse Ox 98.0 F 88 18 175/115 98 09/28/17 19:19 09/28/17 19:19 09/28/17 19:19 09/28/17 19:19 09/28/17 19:19 Vital Signs Reviewed: Yes Appearance: Positive: Well-Appearing Skin: Positive: Warm, Dry Head/Face: Positive: Normal Head/Face Inspection Eyes: Positive: Normal, Conjunctiva Clear ENT: Positive: Pharynx normal Respiratory/Lung Sounds: Positive: Clear to Auscultation, Breath Sounds Present Cardiovascular: Positive: Normal, RRR Abdomen Description: Positive: Nontender, Soft Bowel Sounds: Positive: Present Musculoskeletal: Positive: Normal Neurological: Positive: Sensory/Motor Intact, Alert, Oriented to Person Place, Time, CN Intact II-III Psychiatric: Positive: Normal Diagnostics - Vital Signs Vital Signs Temp Pulse Resp BP Pulse Ox 09/28/17 21:39 18 09/28/17 20:31 98.9 F 93 16 191/108 95 09/28/17 19:19 98.0 F 88 18 175/115 98 - Laboratory Lab Results: Lab Results 09/28/17 09/28/17 Range/Units 20:22 20:22 WBC 5.8 (3.5-10.8) 10^3/ul RBC 3.95 L (4.00-5.40) 10^6/ul Hgb 12.1 L (14.0-18.0) g/dl Hct 35 L (42-52) % MCV 90 (80-94) fL MCH 31 (27-31) pg MCHC 34 (31-36) g/dl RDW 13 (10.5-15) % Plt Count 188 (150-450) 10^3/ul MPV 8.0 (7.4-10.4) um3 Neut % (Auto) 78.7 (38-83) % Lymph % (Auto) 13.0 L (25-47) % [place] % (Auto) 5.4 (0-7) % Eos % (Auto) 1.7 (0-6) % Baso % (Auto) 1.2 (0-2) % Absolute Neuts (auto) 4.6 (1.5-7.7) 10^3/ul Absolute Lymphs (auto) 0.8 L (1.0-4.8) 10^3/ul Absolute Monos (auto) 0.3 (0-0.8) 10^3/ul Absolute Eos (auto) 0.1 (0-0.6) 10^3/ul Absolute Basos (auto) 0.1 (0-0.2) 10^3/ul Absolute Nucleated RBC 0 10^3/ul Nucleated RBC % 0 Sodium 138 (135-145) mmol/L Potassium 3.1 L (3.5-5.0) mmol/L Chloride 94 L (101-111) mmol/L Carbon Dioxide 30 (22-32) mmol/L Anion Gap 14 H (2-11) mmol/L BUN 30 H (6-24) mg/dL Creatinine 9.87 H (0.67-1.17) mg/dL Est GFR ( Amer) 7.6 (>60) Est GFR (Non-Af Amer) 6.2 (>60) BUN/Creatinine Ratio 3.0 L (8-20) Glucose 97 (70-100) mg/dL Calcium 9.8 (8.6-10.3) mg/dL Magnesium 2.4 (1.9-2.7) mg/dL Total Bilirubin 1.40 H (0.2-1.0) mg/dL AST 10 L (13-39) U/L ALT 11 (7-52) U/L Alkaline Phosphatase 68 (34-104) U/L Total Protein 7.4 (6.4-8.9) g/dL Albumin 4.6 (3.2-5.2) g/dL Globulin 2.8 (2-4) g/dL Albumin/Globulin Ratio 1.6 (1-3) Lipase 42 (11.0-82.0) U/L Result Diagrams: 09/28/17 20:22 09/28/17 20:22 Lab Statement: Any lab studies that have been ordered have been reviewed, and results considered in the medical decision making process. Re-Evaluation - Re-Evaluation First Eval Re-Evaluation Time: 22:58 Change: Improved Comment: pain now 6 out of 10 Second Eval Re-Evaluation Time: 00:47 Change: Improved Comment: pain better, feels that can go home, bp now 150/80. Headache Course/Dx - Course Course Of Treatment: 32-year-old male presents with headache today. This is not the worst headache of his life. He states that after dialysis today he developed a headache. He states that it started with the nausea and vomiting. He states that his headache is generalized. He has history of migraines. He states there is nothing different about the headache. He states he has not been able to keep any of his blood pressure medications down due to the vomiting. He states he has a cycle of this for his blood pressure gets out of control he cannot control it due to the vomiting. He had dialysis today. He has dialysis Thursday. He denies any chest pain or shortness breath. no abdominal pain. he tried zofran odt without relief. He admits to photophobia but no change in vision. He denies any dizziness. He was not able to keep his bp meds down today. on exam bp elevated. normal neuro exam. labs at baseline. gave morphine, compazine, and bendaryl and no longer nauseous but still some pain. gave hydrazaline and labelatol and bp came down to 150/90. will discharge and have take normal bp meds when get home. will have follow up with primary. gave zofran to go home. patient understand agrees with plan. - Diagnoses Differential Diagnosis/HQI/PQRI: Migraine, Tension Headache, Viral Syndrome Provider Diagnoses: Headache, Hypertension Discharge - Sign-Out/Discharge Documenting (check all that apply): Patient Departure - Discharge Plan Condition: Good Disposition: HOME Prescriptions: Ondansetron ODT TAB* [Zofran 4 MG Odt TAB*] 4 mg PO Q6H PRN #20 tab.odt PRN Reason: Nausea Patient Education Materials: Migraine Headache (ED) Referrals: Christa Frey MD [Primary Care Provider] - Additional Instructions: Take Tylenol for pain every 6 hours as needed use zofran every 6 hours for nausea Follow up with primary within 5 days Return to ED if develop any new or worsening symptoms - Billing Disposition and Condition Condition: GOOD Disposition: Home
[2017-09-29] MEDS ORDERED: Morphine INJ* 2 MG/ML 1 ML SYRINGE (TWO MG - NEW SYRINGE VERSION) IV ONE
[2017-09-29] MEDS ORDERED: O ndansetron ODT 4MG 2TAB PRPK 4 MG PAK PO ONE (00:45)
[2017-09-29 01:04] VITALS: BP 149/82
== END 2017-09-29 01:07 | disposition home or self-care (01) ==
LOC: ED 19:10
DX: R51 Headache (principal); I10 Essential (primary) hypertension; T86.12 Kidney transplant failure; Z99.2 Dependence on renal dialysis; Z86.711 Personal history of pulmonary embolism; Z86.718 Personal history of other venous thrombosis and embolism; Z87.891 Personal history of nicotine dependence; Z79.899 Other long term (current) drug therapy; Z88.8 Allergy status to other drugs, medicaments and biological substances; Z88.5 Allergy status to narcotic agent
CPT/HCPCS: 36415; 80053; 83690; 83735; 85025; 96374; 96375; 99283; A9270-GY; J0780; J1200; J2270

== ENCOUNTER 2017-11-30 15:58 | Inpatient (IN) | payer MEDICARE, BC ==
[2017-11-30] MEDS ORDERED: Metoclopramide IV* 5 MG/ML 2 ML VIAL IV ONE (17:39)
[2017-11-30] MEDS ORDERED: diPHENhydraMINE IV* 50 MG/ML 1 ml VIAL (BENADRYL) IV ONE (17:39)
--- NOTE | 2017-11-30 17:40 | ED ---
Headache - HPI Summary HPI Summary: This pt is a 32 y/o male presenting to [facility] c/o migraine headache since today. Sign Writer Hand reports pt's headache began this morning. Additionally pt has photophobia, nausea, vomiting. Per traffic control specialist pt has been unable to keep his medications down secondary to vomiting. Denies fever, chills, chest pain, neck pain. Pt had dialysis this morning. PMHx with extensive hx, including end stage renal disease, HTN, migraines. - History Of Current Complaint Chief Complaint: EDHeadache Stated Complaint: V/N/HIGH BLOOD PRESSURE/HEADACHE Time Seen by Provider: 11/30/17 17:32 Hx Obtained From: Patient, Family/Sign Writer Hand Onset/Duration: Started hours ago, Still Present Currently Pain Is: Severe Timing: Constant Character: Migraine Location of Headache: Diffuse Aggravating Factor: Bright Lights Allevating Factors: Nothing Associated Signs And Symptoms: Nausea, Vomiting, Other (Noted In Comments) - POS : photophobia. NEG: chest pain, neck pain, neck stiffness, fever - Allergies/Home Medications Allergies/Adverse Reactions: Allergies Allergy/AdvReac Type Severity Reaction Status Date / Time aspirin Allergy Unknown Verified 11/30/17 16:08 Reaction Details gabapentin Allergy twitching, Verified 11/30/17 16:08 double vision hydrocodone Allergy twitching Verified 11/30/17 16:08 Home Medications: Home Medications Ropinirole HCl [Requip] 0.25 mg PO BID 11/30/17 [History Confirmed 11/30/17] PMH/Surg Hx/FS Hx/Imm Hx Endocrine/Hematology History: Reports: Hx Anticoagulant Therapy, Hx Blood Transfusions - February 2016, Hx Anemia Denies: Hx Blood Disorders, Hx Bone Marrow Disease, Hx Diabetes, Hx Systemic Lupus Erythematosus, Hx Sickle Cell Disease, Hx Thyroid Disease, Hx Unexplained Bleeding, Other Endocrine/Hematological Disorders Cardiovascular History: Reports: Hx Congestive Heart Failure - Probable 09/18/16 , Hx Embolism - PE, Hx Hypertension - ON MEDICATION FOR, Other Cardiovascular Problems/Disorders - RT.KIDNEY TRANSPLANT FAILED AND REMOVED/DIALYSIS Denies: Hx Aneurysm, Hx Angina, Hx Angioplasty, Hx Auto Implanted Cardiovert Defib, Hx Cardiac Arrest, Hx Cardiomegaly, Hx Congenital Heart Disease, Hx Coronary Artery Disease, Hx Deep Vein Thrombosis, Hx Hypercholesterolemia, Hx Hypotension, Hx Pacemaker/ICD, Hx Peripheral Vascular Disease, Hx Rheumatic Fever, Hx Syncope, Hx Valvular Heart Disease Respiratory History: Reports: Hx Pulmonary Edema - Flash pulmonary edema resulting in CPR 09/02/16, Other Respiratory Problems/Disorders - "left lung repaired for pneumothorax in 2006 Denies: Hx Asthma, Hx Chronic Bronchitis, Hx Chronic Obstructive Pulmonary Disease (COPD), Hx Cystic Fibrosis, Hx Lung Cancer, Hx Pleural Effusion, Hx Pneumonia, Hx Pulmonary Embolism, Hx Seasonal Allergies, Hx Sleep Apnea GI History: Denies: Hx Cirrhosis, Hx Crohn's Disease, Hx Diverticulosis, Hx Gall Bladder Disease, Hx Gastroesophageal Reflux Disease, Hx Gastrointestinal Bleed, Hx Hiatal Hernia, Hx Irritable Bowel, Hx Jaundice, Hx Obstructive Bowel, Hx Ileostomy, Hx Pyloric Stenosis, Hx Ulcer, Other GI Disorders History: Reports: Hx Acute Renal Failure, Hx Chronic Renal Failure, Hx Dialysis, Hx Renal Disease - TRANSPLANT - RT, dialysis every Mon., Wed., Thu., Other Problems/Disorders - DIALYSIS Denies: Hx Benign Prostatic Hyperplasia, Hx Kidney Infection, Hx Kidney Stones Musculoskeletal History: Reports: Hx Back Problems - chronic back pain Denies: Hx Arthritis, Hx Bursitis, Hx Congenital Bone Abnormalities, Hx Fibromyalgia, Hx Gout, Hx Orthopedic Injury, Hx Osteoporosis, Hx Scoliosis, Hx Tendonitis, Other Musculoskeletal History Sensory History: Reports: Hx Deafness, Hx Hearing Aid, Hx Hearing Problem - moderate hearing loss bilat ears, Other Sensory Impairments - Photophobia Denies: Hx Cataracts, Hx Contacts or Glasses, Hx Eye Injury, Hx Eye Prosthesis, Hx Glaucoma, Hx Legally Blind, Hx Macular Degeneration, Hx Vision Problem Opthamlomology History: Reports: Other Sensory Impairments - Photophobia Denies: Hx Cataracts, Hx Contacts or Glasses, Hx Eye Injury, Hx Eye Prosthesis, Hx Glaucoma, Hx Legally Blind, Hx Macular Degeneration, Hx Vision Problem Neurological History: Reports: Hx Headaches, Hx Migraine - 1-2 PER MONTH, Hx Seizures - September 2016, Other Neuro Impairments/Disorders - Restless leg syndrome Denies: Hx Dementia, Hx Developmental Delay, Hx Nerve Disease, Hx Spinal Cord Injury, Hx Transient Ischemic Attacks (TIA) Psychiatric History: Reports: Hx Anxiety - NEW-STATES MD IS AWARE, Hx Depression - NEW-STATES MD IS AWARE Denies: Hx Attention Deficit Hyperactivity Disorder, Hx Eating Disorder, Hx Panic Disorder, Hx Post Traumatic Stress Disorder, Hx Inpatient Treatment, Hx Community Mental Health Tx, Hx Schizophrenia, Hx Bipolar Disorder, Hx Suicide Attempt, Hx of Violent Episodes Against Others, Hx Substance Abuse, Other Psychiatric Issues/Disorders - Cancer History Hx Chemotherapy: No Hx Radiation Therapy: No Hx Palliative Cancer Treatment: No - Surgical History Surgery Procedure, Year, and Place: 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[place], [place]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; LEFT LUNG SX FOR REPAIR; LEFT ARM FISTULA FOR DIALISYS 2015, RIGHT CHEST WALL CATH FOR DIALYSIS; RIGHT NEPHRECTOMY - kidney rejected, 2016 Hx Anesthesia Reactions: No - Immunization History Date of Tetanus Vaccine: unk Date of Influenza Vaccine: unk Infectious Disease History: No Infectious Disease History: Denies: Hx Hepatitis, Hx of Known/Suspected MRSA, Hx Shingles, Hx Tuberculosis, History Other Infectious Disease, Traveled Outside the [place] in Last 30 Days - Family History Known Family History: Positive: Other - Mother carrier of alport disease gene Negative: Blood Disorder - Social History Alcohol Use: None Alcohol Amount: Once per month before getting sick in February Hx Substance Use: No Substance Use Type: Reports: None Hx Tobacco Use: Yes Smoking Status (MU): Former Smoker Type: Cigarettes Amount Used/How Often: 1 PPD X 4 YEARS Have You Smoked in the Last Year: No Review of Systems Negative: Fever, Chills Positive: Photophobia Negative: Chest Pain Positive: Vomiting, Nausea Positive: Headache All Other Systems Reviewed And Are Negative: Yes Physical Exam - Summary Physical Exam Summary: VITAL SIGNS: Reviewed. GENERAL: Patient is a well-developed and nourished male who is lying comfortable in the stretcher. Patient is not in any acute respiratory distress. Pt is wearing comfortable because of light sensitivity. HEAD AND FACE: No signs of trauma. No ecchymosis, hematomas or skull depressions. No sinus tenderness. EYES: PERRLA, EOMI x 2, No injected conjunctiva, no nystagmus. EARS: Hearing grossly intact. Ear canals and tympanic membranes are within normal limits. MOUTH: Oropharynx within normal limits. NECK: Supple, trachea is midline, no adenopathy, no JVD, no carotid bruit, no c- spine tenderness, neck with full ROM. No meningeal signs. CHEST: Symmetric, no tenderness at palpation LUNGS: Clear to auscultation bilaterally. No wheezing or crackles. CVS: Regular rate and rhythm, S1 and S2 present, no murmurs or gallops appreciated. ABDOMEN: Soft, non-tender. No signs of distention. No rebound, no guarding, and no masses palpated. Bowel sounds are normal. EXTREMITIES: FROM in all major joints, no edema, no cyanosis or clubbing. NEURO: Alert and oriented x 3. No acute neurological deficits. Speech is normal and follows commands. SKIN: Dry and warm Triage Information Reviewed: Yes Vital Signs On Initial Exam: Initial Vitals Temp Pulse Resp BP Pulse Ox 97.6 F 74 16 212/98 96 11/30/17 16:01 11/30/17 16:01 11/30/17 16:01 11/30/17 16:01 11/30/17 16:01 Vital Signs Reviewed: Yes Diagnostics - Vital Signs Vital Signs Temp Pulse Resp BP Pulse Ox 11/30/17 17:13 72 13 11/30/17 17:10 73 7 222/140 76 11/30/17 16:01 97.6 F 74 16 212/98 96 - Laboratory Result Diagrams: 12/02/17 06:33 12/02/17 06:33 Lab Statement: Any lab studies that have been ordered have been reviewed, and results considered in the medical decision making process. - EKG 17:49 Cardiac Rate: NL - at 70 bpm EKG Rhythm: Sinus Rhythm EKG Interpretation: No ST elevations EKG Comparison: No Significant Change - similar to prior 06/29/17. Headache Course/Dx - Course Assessment/Plan: This pt is a 32 y/o male presenting to [facility] c/o migraine headache since today. Sign Writer Hand reports pt's headache began this morning. Additionally pt has photophobia, nausea, vomiting. Per traffic control specialist pt has been unable to keep his medications down secondary to vomiting. Denies fever, chills , chest pain, neck pain. Pt had dialysis this morning. PMHx with extensive hx , including end stage renal disease, HTN, migraines. Blood tests without any significant abnormality except for potassium level of 6.4, BUN 35, creatinine 9.09, calcium 10.7, total bilirubin of 1.9, AST of 10, BNP 955, albumin of 5.4. In the ED course the patient was started with IV fluids, the patient was given Reglan and Benadryl for the headache. He was also started on dextrose, insulin, calcium gluconate, Kayexalate for the hyperkalemia. Patient reported that he had a full dialysis this morning and currently is hyperkalemic. There are no EKG changes. The patient was also given Dilaudid for the headache. Because of the hypertensive urgency the patient was started on the nitroglycerin drip. At this point I discussed my physical exam and findings with Dr. Tipton, hospitalist, who accepted the patient for admission. The patient is hemodynamically stable and he is alert and oriented 3. - Diagnoses Provider Diagnoses: Hypertensive urgency, Migraine headache, End stage chronic kidney disease, Hypercalcemia, Hyperkalemia - Physician Notifications Discussed Care Of Patient With: Kenton Tipton - Hospitalist Time Discussed With Above Provider: 18:42 Instructed by Provider To: Admit As Inpatient - Critical Care Time Critical Care Time: 75-104 min Discharge - Sign-Out/Discharge Documenting (check all that apply): Patient Departure - [place] [facility]charge Plan Condition: Stable Disposition: ADMITTED TO [facility] - Billing Disposition and Condition Condition: STABLE Disposition: Admitted to [facility] - Attestation Statements Document Initiated by Scribe: Yes Documenting Scribe: Lea Moya Provider For Whom Scribe is Documenting (Include Credential): Jorge Melendez MD Scribe Attestation: I, Lea Moya, scribed for Jorge Melendez MD on 12/02/17 at 0907. Scribe Documentation Reviewed: Yes Provider Attestation: The documentation as recorded by the Lea florence accurately reflects the service I personally performed and the decisions made by me, Jorge Melendez MD
[2017-11-30] MEDS ORDERED: nitroGLYCERIN DRIP* 25,000 MCG/250 ML BTL ONE (17:44)
[2017-11-30] MEDS ORDERED: nitroGLYCERIN DRIP* 25,000 MCG in PREMIX* 0 ML IV SCH (18:00)
[2017-11-30 18:08] LABS: ABS Basophils 0.1 10^3/ul (0-0.2); ABS Eosinophils 0 10^3/ul (0-0.6); ABS Lymphocytes 0.5 10^3/ul (1.0-4.8); ABS Monocytes 0.3 10^3/ul (0-0.8); ABS Neutrophils 4.3 10^3/ul (1.5-7.7); ABS Nucleated RBC 0 10^3/ul; Eosinophil % 0.5 % (0-6); Hematocrit 44 % (42-52); Hemoglobin 14.5 g/dl (14.0-18.0); Lymphocyte % 10.4 % (25-47); Mean Corpuscular HGB Conc 33 g/dl (31-36); Mean Corpuscular Hemoglobin 30 pg (27-31); Mean Corpuscular Volume 90 fL (80-94); Mean Platelet Volume 8.1 um3 (7.4-10.4); Nucleated Red Blood Cells % 0; Platelet Count 176 10^3/ul (150-450); Red Blood Count 4.91 10^6/ul (4.00-5.40); Red Cell Distribution Width 14 % (10.5-15); White Blood Count 5.2 10^3/ul (3.5-10.8)
[2017-11-30 18:24] LABS: EGFR Non-African American 6.9 (>60)
[2017-11-30] MEDS ORDERED: HYDROmorphone INJ* 1 MG/ML CARPUJECT SYRINGE IV SLOW PU ONE (18:28)
[2017-11-30] MEDS ORDERED: HYDROmorphone INJ1* 1 MG/ML SYRINGE ONE (18:31)
[2017-11-30] MEDS: HYDROmorphone INJ1* 1 MG/ML SYRINGE IV SLOW PU ONE ×2 (18:32→20:01)
[2017-11-30] MEDS ORDERED: Dextrose 50% Syringe 50 ML* 25 GM/50 ML SYRINGE IV PUSH PRN (18:33)
[2017-11-30] MEDS ORDERED: Insulin REGULAR(*) 1 UNITS UNIT IV PUSH ONE (18:33)
[2017-11-30] MEDS ORDERED: Sodium Polystyrene ORAL.SOL* 15 GM/60 ML BTL PO ONE (18:36)
[2017-11-30] MEDS ORDERED: Calcium Gluconate INJ* 1 GM in NS 0.9% 50 ML* 50 ML IVPB ONE (18:37)
[2017-11-30] MEDS ORDERED: Dextrose 50% Syringe 50 ML* 25 GM/50 ML SYRINGE ONE (18:55)
[2017-11-30] MEDS ORDERED: NS 0.9% 50 ML* 50 ML ONE (18:55)
[2017-11-30] MEDS ORDERED: Senna TAB PO PRN (21:41)
[2017-11-30] MEDS ORDERED: Ondansetron INJ* 2 MG/ML VIAL IV PRN (21:53)
[2017-11-30] MEDS ORDERED: Metoclopramide IV* 5 MG/ML 2 ML VIAL IV PRN ×2 (21:54→22:00)
[2017-11-30] MEDS ORDERED: Ondansetron INJ* 2 MG/ML VIAL ONE (21:57)
[2017-11-30] MEDS ORDERED: Sevelamer TAB* 800 MG PO SCH (22:00)
[2017-11-30] MEDS ORDERED: Heparin VIAL(*) 5000 UNITS/ML VIAL (FIVE THOUSAND) SUBCUT SCH (22:00)
[2017-11-30] MEDS ORDERED: nitroGLYCERIN DRIP* 25,000 MCG/250 ML BTL IV SCH (22:00)
[2017-11-30] MEDS ORDERED: Metoclopramide IV* 5 MG/ML 2 ML VIAL ONE (22:01)
[2017-11-30] MEDS ORDERED: niCARdipine 0.1MG/ML IVPREMIX* 20 MG/200 ML BAG IV ONE (22:40)
[2017-11-30] MEDS ORDERED: PROCHLORPERAZINE INJ 5 MG/ML 2 ML VIAL ONE (22:40)
[2017-11-30] MEDS: niCARdipine DRIP 0.1 MG/ML @ ___ MG/HR(Edit Rate) IVPREMIX IV SCH (22:55)
[2017-11-30] MEDS ORDERED: Sevelamer TAB* 800 MG PO PRN (23:50)
--- NOTE | 2017-12-01 00:05 | HP ---
CC: Dr. Christa Frey; Dr. Jose De Jesus Arana * HISTORY AND PHYSICAL: DATE OF ADMISSION: 11/30/17 PRIMARY CARE PROVIDER: Christa Frey MD MANIPULATIVE THERAPY SPECIALIST: Jose De Jesus Arana MD ATTENDING PROVIDER: Dr. Smith * (DICTATED BY LUISITO DOE NP) CHIEF COMPLAINT: Headache. HISTORY OF PRESENT ILLNESS: Mr. Sotelo is a 32-year-old male with past medical history significant for Alport syndrome status post failed renal transplant; end- stage renal disease, on hemodialysis Thursday, Thursday, Thursday ; migraines; hypertension; anemia of chronic disease who states that he has been in his usual state of health until a few days ago, when he developed a slight headache. He has been able to manage his headache at home. Today after receiving dialysis, the headache worsened. This was accompanied by photosensitivity, worsening hearing loss. Actually he has been vomiting, unable to keep his medications down. He denies fever, chest pain, shortness of breath. He denies chills, though states he feels cold. Due to his symptoms, he presented to the emergency room for further evaluation of his symptoms. While in the emergency room, the patient was noted to be hypertensive with systolic blood pressures into the 200s. He continued to have headache, he received IV Benadryl, Reglan for his nausea, IV Dilaudid. He had labs showing hyperkalemia with a potassium of 6.4. He was started on nitroglycerin drip and hospitalists were asked to evaluate the patient for admission. PAST MEDICAL HISTORY: 1. End-stage renal disease, on hemodialysis on Thursday, Thursday, Thursday. 2. Alport syndrome. 3. Migraines. 4. Hypertension. 5. Chronic pain. 6. Anxiety. 7. Anemia of chronic kidney disease. 8. GERD. 9. History of spontaneous pneumothorax. PAST SURGICAL HISTORY: 1. Status post AV fistula placement. 2. Status post failed renal transplant. 3. Status post PD catheter placement and removal. 4. Status post right nephrectomy. 5. Status post lung repair after pneumothorax. HOME MEDICATIONS: Include: 1. Veltassa 0.4 mg oral as directed. 2. Zofran 4 mg oral every 6 hours as needed for nausea. 3. Omeprazole 40 mg oral daily. 4. Minoxidil 10 mg oral twice daily. 5. Methadone 5 mg oral every 12 hours as needed for pain. 6. Amlodipine 10 mg oral daily. 7. Verapamil 240 mg oral daily. 8. Sevelamer 4000 mg oral 3 times a day with meals and 1600 mg oral daily with snacks. 9. Senna 1 tablet oral daily as needed for constipation. 10. Requip 0.25 mg oral twice daily. 11. Propranolol 80 mg oral 3 times daily. ALLERGIES: ASPIRIN, GABAPENTIN, HYDROCODONE. FAMILY HISTORY: The patient's mother has a history of being an Alport syndrome carrier, patient's father with a history of hypertension. SOCIAL HISTORY: The patient is a former smoker, smoking 1 pack a day for 4 years. He denies alcohol or recreational drug use. His mother, Vaishali Sotelo , will be his surrogate decision maker in the event he is unable to make decisions for himself. REVIEW OF SYSTEMS: I performed a 11-point review of systems. All the pertinent positives and negatives are mentioned in the history of present illness. The remaining review of systems are negative. PHYSICAL EXAMINATION GENERAL APPEARANCE: The patient is alert, pleasant, and appears to be in no acute distress. VITAL SIGNS: Temperature 97.6, heart rate 69, respiratory rate 15, O2 sat 95% on room air, blood pressure 218/112. HEENT: Normocephalic, atraumatic. RESPIRATORY: There is no accessory muscle use. The lungs are clear to auscultation bilaterally. CARDIOVASCULAR: Regular rate and rhythm. S1 and S2 present. There are no murmurs, rubs, or gallops heard. ABDOMEN: Soft, nontender, and nondistended. Bowel sounds present x4. EXTREMITIES: There is no lower extremity edema. DP and PT pulses are 2+ and symmetric. MUSCULOSKELETAL: There is no clubbing or cyanosis noted. The patient exhibits good strength in all extremities. NEUROLOGICAL: The patient is alert and oriented x4. Cranial nerves II through XII are grossly intact. PSYCHOLOGICAL: The patient is calm and cooperative. SKIN: There are no rashes or abnormalities seen. DIAGNOSTIC STUDIES/LAB DATA: Sodium 135, potassium 6.4, chloride 94, CO2 30, BUN 35, creatinine 9.09, glucose 91. White blood cell count 5.2, hemoglobin 14.5, hematocrit 44, platelet count 176. BNP 955. EKG shows a sinus rhythm with rate of 70. There are no acute signs of ischemia. No significant changes from previous EKG on 06/29/17. IMPRESSION: Mr. Sotelo is a 32-year-old male with past medical history significant for Alport syndrome; end-stage renal disease, on hemodialysis; migraines; hypertension; chronic pain; anxiety; anemia of chronic disease, who presented to the emergency room with complaints of headache. The patient will be admitted as inpatient for hypertensive urgency. ASSESSMENT/PLAN: 1. Hypertensive urgency. The patient has not been taking his home antihypertensive due to his migraine headache and nausea. He has been started on a nitro drip here in the emergency room. Plan will be to continue him on his home medications. If he continues to be hypertensive, we can consider adding a hydralazine IV. He just had dialysis today. If he continues to be hypertensive, he may benefit from having Dr. Arana with Nephrology weigh in. The patient will be continued on his home amlodipine, verapamil, propranolol. 2. Hyperkalemia. The patient received IV calcium, insulin, and dextrose while in the emergency room, he declined the Kayexalate. He has no EKG changes at this time. I will recheck electrolytes at midnight and again in the morning. I am going to continue him on his home Veltassa. 3. End-stage renal disease. The patient to continue on his Thursday, Thursday, Thursday hemodialysis schedule. He will be continue on his home Sevelamer. 4. Chronic pain. He will be continued on his home Methadone. 5. Restless leg syndrome. He will be continue on his home Requip. 6. Gastroesophageal reflux disease. He will be continued on his home omeprazole. 7. Anemia. The patient appears to be above his baseline anemia. He has anemia of chronic disease. 8. History of migraines. The patient continues to have headache. He will be continued on hydromorphone as well as his usual home medications as needed. 9. Fluids, electrolytes, and nutrition. He will be on a renal diet. 10. Code status. Full code. 11. Deep vein thrombosis prophylaxis. He is a low risk. I suspect he will not be ambulating. So, I have ordered SCD's. 12. Disposition. Inpatient. TIME SPENT: Time for this admission was approximately 1 hour, greater than half of that was spent with the patient and his family discussing medications, past medical history, the events leading up to his arrival today, performing a physical examination. The case has been reviewed with the attending, Dr. Smith, who agrees with the plan of care. LUISITO DOE, SEED TECHNICIAN [id number]/CPS #: [id number] LUIS M
[2017-12-01 00:34] LABS: EGFR Non-African American 6.2 (>60)
[2017-12-01] MEDS: HYDROmorphone INJ1* 1 MG/ML SYRINGE IV SLOW PU PRN ×4 (01:51→20:55)
[2017-12-01] MEDS: niCARdipine DRIP 0.1 MG/ML @ ___ MG/HR(Edit Rate) IVPREMIX IV SCH ×3 (02:34→09:24)
[2017-12-01] MEDS: PROCHLORPERAZINE INJ 5 MG/ML 2 ML VIAL IV PRN (03:37)
[2017-12-01] MEDS ORDERED: Metoclopramide IV* 5 MG/ML 2 ML VIAL IV PRN (06:00)
[2017-12-01 06:59] LABS: EGFR Non-African American 5.8 (>60)
[2017-12-01] MEDS: Ropinirole TAB* 0.5 MG TAB PO SCH ×2 (08:44→20:47)
[2017-12-01] MEDS: Omeprazole CAP* 20 MG PO SCH (08:46)
[2017-12-01] MEDS: Sevelamer TAB* 800 MG PO SCH ×4 (08:47→16:58)
[2017-12-01] MEDS: amLODIPine TAB* 5 MG PO SCH (08:47)
[2017-12-01] MEDS: Verapamil SR TAB* 240 MG PO SCH (08:47)
[2017-12-01] MEDS ORDERED: Metoprolol Tartrate TAB* 25 MG PO SCH (09:00)
[2017-12-01] MEDS ORDERED: MinoXIDil TAB* 2.5 MG TAB PO SCH ×2 (09:00)
[2017-12-01] MEDS: Propranolol TAB* 80 MG PO SCH ×3 (09:22→20:48)
--- NOTE | 2017-12-01 16:41 | PN ---
Subjective Date of Service: 12/01/17 Interval History: Pt seen and examined. Meds and labs reviewed. CC: Migraine TEIXEIRA ROS: Denied dizziness, F/C, N/V, CP, SOB, increased cough, sputum production, abd pain, diarrhea, constipation, dysuria, myalgias, arthralgias, throat pain, and new skin lesions. The rest of the 14 point ROS are unremarkable. PHYSICAL EXAM: GEN APPEARANCE: Awake, not in acute distress, pt was wearing sunglasses in the dark rook given his migraine TEIXEIRA HEENT: NC/AT, PERRLA, moist oral mucosa, (-) throat erythema NECK: Soft, supple, (-) cervical LAD, (-)JVD HEART: S1S2 WNL, RRR, No MRG CHEST: CTA, BL, GAE, No W/R/R ABD: Soft, ND/NT, NABS 4x Q EXT: No C/C/E SKIN: Warm to touch PSYCH: No active psychosis, hallucinations, depression, SI/HI Objective Active Medications: Amlodipine Besylate (Norvasc Tab*) 10 mg PO DAILY [facility] Last Admin: 12/01/17 08:47 Dose: 10 mg Heparin Sodium (Porcine) (Heparin Vial(*)) 5,000 units SUBCUT Q12HR ZHANE Hydromorphone HCl (Dilaudid Inj1s*) 1 mg IV SLOW PU Q4H PRN PRN Reason: PAIN Last Admin: 12/01/17 14:41 Dose: 1 mg Nicardipine/Sodium Chloride (Cardene 0.1mg/Ml Ivpremix*) 20 mg in 200 mls @ 50 mls/hr IV .(as Initial Rate) [facility]; Protocol Last Admin: 12/01/17 09:24 Dose: 75 mls/hr Methadone HCl (Dolophine Tab*) 5 mg PO Q12H PRN PRN Reason: SEVERE PAIN Metoclopramide HCl (Reglan Iv*) 10 mg IV TID AC PRN PRN Reason: NAUSEA/VOMITING Minoxidil (Loniten Tab*) 30 mg PO BID ZHANE Omeprazole (Prilosec Cap*) 40 mg PO DAILY@0730 ZHANE Last Admin: 12/01/17 08:46 Dose: 40 mg Ondansetron HCl (Zofran Inj*) 4 mg IV Q6H PRN PRN Reason: NAUSEA Last Admin: 11/30/17 22:35 Dose: 4 mg Prochlorperazine Edisylate (Compazine Inj*) 10 mg IV Q8H PRN PRN Reason: NAUSEA/VOMITING Last Admin: 12/01/17 03:37 Dose: 10 mg Propranolol HCl (Inderal Tab*) 80 mg PO TID [facility] Last Admin: 12/01/17 14:41 Dose: 80 mg Ropinirole HCl (Requip Tab*) 0.25 mg PO BID [facility] Last Admin: 12/01/17 08:44 Dose: 0.25 mg Senna (Senokot Tab*) 1 tab PO DAILY PRN PRN Reason: CONSTIPATION Sevelamer Carbonate (Renvela Tab*) 4,000 mg PO TID WITH MEALS [facility] Last Admin: 12/01/17 14:22 Dose: Not Given Sevelamer Carbonate (Renvela Tab*) 1,600 mg PO .WITH SNACKS PRN PRN Reason: WITH SNACKS Verapamil HCl (Calan Sr Tab*) 240 mg PO DAILY [facility] Last Admin: 12/01/17 08:47 Dose: 240 mg Vital Signs - 8 hr 12/01/17 12/01/17 12/01/17 08:45 09:00 09:15 Pulse Rate 127 108 90 Respiratory 13 11 11 Rate Blood Pressure 193/117 158/87 148/84 (mmHg) O2 Sat by Pulse 96 94 93 Oximetry 12/01/17 12/01/17 12/01/17 09:30 09:45 10:00 Pulse Rate 86 85 86 Respiratory 16 18 14 Rate Blood Pressure 154/89 154/82 153/89 (mmHg) O2 Sat by Pulse 94 95 93 Oximetry 12/01/17 12/01/17 12/01/17 10:15 10:30 10:45 Pulse Rate 85 84 82 Respiratory 11 11 11 Rate Blood Pressure 141/84 140/84 139/79 (mmHg) O2 Sat by Pulse 93 95 94 Oximetry 12/01/17 12/01/17 12/01/17 11:00 11:15 11:30 Pulse Rate 82 79 78 Respiratory 12 11 21 Rate Blood Pressure 133/75 136/79 125/73 (mmHg) O2 Sat by Pulse 94 93 94 Oximetry 12/01/17 12/01/17 12/01/17 11:45 12:00 12:15 Pulse Rate 84 83 87 Respiratory 16 11 14 Rate Blood Pressure 141/84 132/84 141/91 (mmHg) O2 Sat by Pulse 97 96 95 Oximetry 12/01/17 12/01/17 12/01/17 12:30 12:45 13:00 Pulse Rate 77 80 77 Respiratory 14 12 10 Rate Blood Pressure 144/89 136/83 143/81 (mmHg) O2 Sat by Pulse 95 95 94 Oximetry 12/01/17 12/01/17 12/01/17 13:15 13:30 14:41 Pulse Rate 80 78 Respiratory 15 10 16 Rate Blood Pressure 139/86 141/86 (mmHg) O2 Sat by Pulse 96 97 Oximetry Oxygen Devices in Use Now: None Result Diagrams: 11/30/17 18:00 12/01/17 06:25 Assess/Plan/Problems-Billing Assessment: - Patient Problems (1) Hypertensive urgency Current Visit: No Status: Acute Code(s): I16.0 - HYPERTENSIVE URGENCY SNOMED Code(s): 700140203 Comment: -Seen pt earlier during the day with improving BP, hence increased Minoxidil and given Metoprolol PO x1 to his current regimen as Nicardipine gtt was subsequently turned to off per protocol -Given pt is already on Propranolol at Maximum dose, Metoprolol subsequently D/ Cd and further increased Minoxidil to 30 mg BID -Continue Verapamil and Amlodipine (2) End stage renal disease Current Visit: No Status: Acute Code(s): N18.6 - END STAGE RENAL DISEASE SNOMED Code(s): 95059970 Comment: Alport syndrome. (3) ESRD (end stage renal disease) Current Visit: No Status: Chronic Priority: Medium Code(s): N18.6 - END STAGE RENAL DISEASE SNOMED Code(s): 58550261 Comment: -On HD and will defer with renal (4) Chronic pain Current Visit: No Status: Acute Code(s): G89.29 - OTHER CHRONIC PAIN SNOMED Code(s): 91436341 Comment: -Continue PRN Methadone and Dilaudid for breakthroughs (5) RLS (restless legs syndrome) Current Visit: Yes Status: Acute Comment: -Continue Ropinirole (6) DVT prophylaxis Current Visit: No Status: Acute Priority: Low Code(s): YGS1072 - SNOMED Code(s): 106856804 Comment: -Will place pt on Heparin q12 SQ Status and Disposition: -For transfer to w/tele given Nicardipine gtt off since around 1100
[2017-12-01] MEDS: Methadone TAB* 5 MG PO PRN (17:11)
[2017-12-01 17:33] LABS: Hematocrit 40 % (42-52); Hemoglobin 13.2 g/dl (14.0-18.0); Mean Corpuscular HGB Conc 33 g/dl (31-36); Mean Corpuscular Hemoglobin 30 pg (27-31); Mean Corpuscular Volume 90 fL (80-94); Mean Platelet Volume 8.1 um3 (7.4-10.4); Platelet Count 203 10^3/ul (150-450); Red Blood Count 4.48 10^6/ul (4.00-5.40); Red Cell Distribution Width 14 % (10.5-15); White Blood Count 6.3 10^3/ul (3.5-10.8)
[2017-12-01 17:43] LABS: INR 0.94 (0.77-1.02)
[2017-12-01 17:51] LABS: EGFR Non-African American 4.9 (>60)
[2017-12-01 18:09] LABS: ABS Basophils 0.1 10^3/ul (0-0.2); ABS Eosinophils 0.1 10^3/ul (0-0.6); ABS Lymphocytes 1.7 10^3/ul (1.0-4.8); ABS Monocytes 0.5 10^3/ul (0-0.8); ABS Neutrophils 4.1 10^3/ul (1.5-7.7); ABS Nucleated RBC 0 10^3/ul; Eosinophil % 1.8 % (0-6); Lymphocyte % 26.5 % (25-47); Nucleated Red Blood Cells % 0
[2017-12-01] MEDS: MinoXIDil TAB* 10 MG TAB PO SCH (20:48)
[2017-12-01] MEDS: Heparin VIAL(*) 5000 UNITS/ML VIAL (FIVE THOUSAND) SUBCUT SCH (20:49)
[2017-12-01] MEDS ORDERED: Patiromer POWDER* 8.4 GM PAK PO SCH (22:00)
[2017-12-02 07:25] LABS: ABS Basophils 0.1 10^3/ul (0-0.2); ABS Eosinophils 0.2 10^3/ul (0-0.6); ABS Lymphocytes 1.8 10^3/ul (1.0-4.8); ABS Monocytes 0.4 10^3/ul (0-0.8); ABS Neutrophils 2.6 10^3/ul (1.5-7.7); ABS Nucleated RBC 0 10^3/ul; Eosinophil % 3.9 % (0-6); Hematocrit 41 % (42-52); Hemoglobin 13.4 g/dl (14.0-18.0); Lymphocyte % 35.2 % (25-47); Mean Corpuscular HGB Conc 33 g/dl (31-36); Mean Corpuscular Hemoglobin 29 pg (27-31); Mean Corpuscular Volume 89 fL (80-94); Mean Platelet Volume 8.5 um3 (7.4-10.4); Nucleated Red Blood Cells % 0.2; Platelet Count 199 10^3/ul (150-450); Red Blood Count 4.57 10^6/ul (4.00-5.40); Red Cell Distribution Width 14 % (10.5-15)
[2017-12-02 07:50] LABS: EGFR Non-African American 4.5 (>60)
[2017-12-02] MEDS: Sevelamer TAB* 800 MG PO SCH ×3 (10:02→17:30)
[2017-12-02] MEDS: Omeprazole CAP* 20 MG PO SCH (10:16)
[2017-12-02] MEDS: Verapamil SR TAB* 240 MG PO SCH (10:17)
[2017-12-02] MEDS: Ropinirole TAB* 0.5 MG TAB PO SCH (10:17)
[2017-12-02] MEDS: amLODIPine TAB* 5 MG PO SCH (10:18)
[2017-12-02] MEDS: MinoXIDil TAB* 10 MG TAB PO SCH (10:19)
[2017-12-02] MEDS: Heparin VIAL(*) 5000 UNITS/ML VIAL (FIVE THOUSAND) SUBCUT SCH (10:19)
[2017-12-02] MEDS: Propranolol TAB* 80 MG PO SCH ×2 (10:19→14:32)
[2017-12-02] MEDS: HYDROmorphone INJ1* 1 MG/ML SYRINGE IV SLOW PU PRN (10:26)
[2017-12-02] MEDS: Methadone TAB* 5 MG PO PRN (14:32)
[2017-12-02] MEDS: PROCHLORPERAZINE INJ 5 MG/ML 2 ML VIAL IV PRN (14:33)
--- NOTE | 2017-12-02 15:50 | PN ---
"Progress Note - Progress Note Date of Service: 12/02/17 Note: This report was requested by: Asher Viveros | Reference #: [id number] Others' Prescriptions Patient Name: Juan Francisco Stoelo Date: 1985 Address: [address] [place], [place] [id number] Sex: Male Rx Written Rx Dispensed Drug Quantity Days Supply Prescriber Name 09/23/2017 09/28/2017 methadone hcl 5 mg tablet 60 30 Jose De Jesus Arana MD 09/23/2017 09/28/2017 lorazepam 2 mg tablet 120 30 Jose De Jesus Arana MD 07/23/2017 08/07/2017 methadone hcl 5 mg tablet 60 30 Jose De Jesus Arana MD 06/26/2017 06/28/2017 methadone hcl 5 mg tablet 60 30 Jose De Jesus Arana MD 05/22/2017 05/22/2017 lorazepam 2 mg tablet 60 15 Jose De Jesus Arana MD 05/18/2017 05/20/2017 methadone hcl 5 mg tablet 60 30 Jose De Jesus Arana MD 04/06/2017 04/12/2017 methadone hcl 5 mg tablet 60 30 Jose De Jesus Arana MD 03/11/2017 03/15/2017 methadone hcl 5 mg tablet 60 20 Jose De Jesus Arana MD 01/14/2017 01/17/2017 methadone hcl 5 mg tablet 60 20 Jose De Jesus Arana MD 01/09/2017 01/09/2017 acetaminophen-cod #3 tablet 16 4 Ry Kapoor DDS 12/23/2016 12/23/2016 methadone hcl 5 mg tablet 30 10 Parisa Horton () 12/17/2016 12/18/2016 lorazepam 0.5 mg tablet 6 6 Kaye Little MD Time spent on discharge 50 minutes, including exam of patient, discussion with patient, CM, mother, [facility] pharmacist, [facility] pharmacist,Dr. Arana, review of EMR and preparation of discharge documents."
[2017-12-02] MEDS ORDERED: Prochlorperazine TAB* 10 MG PO PRN (15:58)
[2017-12-02 16:08] VITALS: BP 115/46
--- NOTE | 2017-12-03 15:48 | DS ---
CC: Dr. Frey; Dr. Arana * DISCHARGE SUMMARY: DATE OF ADMISSION: DATE OF DISCHARGE: 12/02/17 HISTORY OF PRESENT ILLNESS: This 32-year-old man presented with headache. He has a history of frequent severe headaches with dialysis, very likely migraine headaches. He has end-stage renal disease and is on hemodialysis Thursday, Thursday, and Thursday. He has Alport syndrome. He had a renal transplant which has failed. He has had a number of episodes where he gets the headache, has vomiting, and is unable to keep his medications down and then has severe hypertension because he cannot keep his home blood pressure medications down. Basically, this is what happened on this admission. He was admitted to the intensive care unit. He was given medications to control his blood pressure. He was unable to get dialysis on Thursday, the day of discharge, for logistical reasons and will come at 6 a.m. tomorrow morning to the dialysis center to have it as an outpatient and then resume his Thursday, Thursday, and Thursday schedule. During this admission, his minoxidil dose was increased to 10 mg t.i.d. I also called in a prescription for prochlorperazine 10 mg every 4 hours p.r.n. I warned him to take it only if it was essential for him and that if he took that dose for a long time, he would have severe side effects. FINAL DIAGNOSES: 1. Hypertensive emergency. 2. Migraine headaches. 3. End-stage renal disease. 4. Restless legs syndrome. 5. Gastroesophageal reflux disease. DISCHARGE MEDICATIONS: 1. Minoxidil 30 mg b.i.d. 2. Prochlorperazine 10 mg every 4 hours p.r.n. 3. Sevelamer 4000 mg t.i.d. with meals. 4. Propranolol 80 mg t.i.d. 5. Amlodipine 10 mg daily. 6. Omeprazole 40 mg daily. 7. Verapamil 240 mg daily. 8. Patiromer calcium sorbitex 8.4 g as prescribed. 9. Senna tablets 1 daily p.r.n. 10. Sevelamer 1600 mg with snacks. 11. Methadone 5 mg b.i.d. p.r.n. 12. Ondansetron ODT 4 mg every 6 hours p.r.n. 13. Ropinirole 0.25 mg b.i.d. DISCHARGE DISPOSITION: home DISCHARGE CONDITION: improved [id number]/CPS #: [id number] LUIS M
== END 2017-12-02 18:30 | disposition home or self-care (01) | DRG 304 ==
LOC: ED 15:58 → ICU 21:22 → MEDTELE 12-01 16:25
PROVIDERS: ADMIT Hospitalist; ATTEND Internal Medicine
DX: I16.1 Hypertensive emergency (principal); N18.6 End stage renal disease; T86.12 Kidney transplant failure; Q87.81 Alport syndrome; G43.909 Migraine, unspecified, not intractable, without status migrainosus; I12.0 Hypertensive chronic kidney disease with stage 5 chronic kidney disease or end stage renal disease; G25.81 Restless legs syndrome; K21.9 Gastro-esophageal reflux disease without esophagitis; D63.1 Anemia in chronic kidney disease; E87.5 Hyperkalemia; G89.29 Other chronic pain; F41.9 Anxiety disorder, unspecified; M54.9 Dorsalgia, unspecified; H91.93 Unspecified hearing loss, bilateral; F32.9 Major depressive disorder, single episode, unspecified; E83.52 Hypercalcemia; Z99.2 Dependence on renal dialysis; Z88.5 Allergy status to narcotic agent; Z88.8 Allergy status to other drugs, medicaments and biological substances; Z82.49 Family history of ischemic heart disease and other diseases of the circulatory system; Z84.81 Family history of carrier of genetic disease; Z87.891 Personal history of nicotine dependence; Z97.4 Presence of external hearing-aid
CPT/HCPCS: 36415; 80048; 80053; 82550; 82565; 83735; 83880; 84100; 84443; 84520; 85025; 85610; 85730; 93005; 99285; A9270-GY; J0610; J0780; J1170; J1200; J1644; J2405; J2765

== ENCOUNTER 2017-12-13 20:25 | Emergency (ER) | payer BC, MEDICARE ==
[2017-12-13] MEDS ORDERED: Tetan/Diph/Pertus SYR(Tdap)* 0.5 ML SYR(BOOSTRIX) use SYR IM ONE (21:02)
[2017-12-13] MEDS ORDERED: Cephalexin CAP* 500 MG PO ONE (23:07)
--- NOTE | 2017-12-13 23:07 | ED ---
Laceration/Wound HPI - HPI Summary HPI Summary: Patient complains of laceration to dorsal surface of base of left thumb from an angle mash grinder today. Tetanus status unknown. Patient on dialysis. Denies any other pain, symptoms, injury. Denies loss of sensation or function distally. Bleeding controlled. - History of Current Complaint Stated Complaint: LT HAND LAC Time Seen by Provider: 12/13/17 20:54 Hx Obtained From: Patient Mechanism of Injury: Sharp/Blunt Trauma Onset/Duration: Sudden Onset Aggravating: Movement Alleviating: Nothing Onset Severity: Moderate Current Severity: Moderate Pain Intensity: 7 Pain Scale Used: 0-10 Numeric Associated Signs & Symptoms: Pain - Additional Pertinent History Primary Care Physician: MATT - Allergy/Home Medications Allergies/Adverse Reactions: Allergies Allergy/AdvReac Type Severity Reaction Status Date / Time aspirin Allergy Unknown Verified 12/13/17 20:43 Reaction Details gabapentin Allergy twitching, Verified 12/13/17 20:43 double vision hydrocodone Allergy twitching Verified 12/13/17 20:43 PMH/Surg Hx/FS Hx/Imm Hx Endocrine/Hematology History: Reports: Hx Anticoagulant Therapy, Hx Blood Transfusions - February 2016, Hx Anemia Denies: Hx Blood Disorders, Hx Bone Marrow Disease, Hx Diabetes, Hx Systemic Lupus Erythematosus, Hx Sickle Cell Disease, Hx Thyroid Disease, Hx Unexplained Bleeding, Other Endocrine/Hematological Disorders Cardiovascular History: Reports: Hx Congestive Heart Failure - Probable 09/18/16 , Hx Embolism - PE, Hx Hypertension - ON MEDICATION FOR, Other Cardiovascular Problems/Disorders - RT.KIDNEY TRANSPLANT FAILED AND REMOVED/DIALYSIS Denies: Hx Aneurysm, Hx Angina, Hx Angioplasty, Hx Auto Implanted Cardiovert Defib, Hx Cardiac Arrest, Hx Cardiomegaly, Hx Congenital Heart Disease, Hx Coronary Artery Disease, Hx Deep Vein Thrombosis, Hx Hypercholesterolemia, Hx Hypotension, Hx Pacemaker/ICD, Hx Peripheral Vascular Disease, Hx Rheumatic Fever, Hx Syncope, Hx Valvular Heart Disease Respiratory History: Reports: Hx Pulmonary Edema - Flash pulmonary edema resulting in CPR 09/02/16, Other Respiratory Problems/Disorders - "left lung repaired for pneumothorax in 2006 Denies: Hx Asthma, Hx Chronic Bronchitis, Hx Chronic Obstructive Pulmonary Disease (COPD), Hx Cystic Fibrosis, Hx Lung Cancer, Hx Pleural Effusion, Hx Pneumonia, Hx Pulmonary Embolism, Hx Seasonal Allergies, Hx Sleep Apnea GI History: Denies: Hx Cirrhosis, Hx Crohn's Disease, Hx Diverticulosis, Hx Gall Bladder Disease, Hx Gastroesophageal Reflux Disease, Hx Gastrointestinal Bleed, Hx Hiatal Hernia, Hx Irritable Bowel, Hx Jaundice, Hx Obstructive Bowel, Hx Ileostomy, Hx Pyloric Stenosis, Hx Ulcer, Other GI Disorders History: Reports: Hx Acute Renal Failure, Hx Chronic Renal Failure, Hx Dialysis, Hx Renal Disease - TRANSPLANT - RT, dialysis every Mon., Wed., Fri., Other Problems/Disorders - DIALYSIS Denies: Hx Benign Prostatic Hyperplasia, Hx Kidney Infection, Hx Kidney Stones Musculoskeletal History: Reports: Hx Back Problems - chronic back pain Denies: Hx Arthritis, Hx Bursitis, Hx Congenital Bone Abnormalities, Hx Fibromyalgia, Hx Gout, Hx Orthopedic Injury, Hx Osteoporosis, Hx Scoliosis, Hx Tendonitis, Other Musculoskeletal History Sensory History: Reports: Hx Deafness, Hx Hearing Aid, Hx Hearing Problem - moderate hearing loss bilat ears, Other Sensory Impairments - Photophobia Denies: Hx Cataracts, Hx Contacts or Glasses, Hx Eye Injury, Hx Eye Prosthesis, Hx Glaucoma, Hx Legally Blind, Hx Macular Degeneration, Hx Vision Problem Opthamlomology History: Reports: Other Sensory Impairments - Photophobia Denies: Hx Cataracts, Hx Contacts or Glasses, Hx Eye Injury, Hx Eye Prosthesis, Hx Glaucoma, Hx Legally Blind, Hx Macular Degeneration, Hx Vision Problem Neurological History: Reports: Hx Headaches, Hx Migraine - 1-2 PER MONTH, Hx Seizures - September 2016, Other Neuro Impairments/Disorders - Restless leg syndrome Denies: Hx Dementia, Hx Developmental Delay, Hx Nerve Disease, Hx Spinal Cord Injury, Hx Transient Ischemic Attacks (TIA) Psychiatric History: Reports: Hx Anxiety - NEW-STATES MD IS AWARE, Hx Depression - NEW-STATES MD IS AWARE Denies: Hx Attention Deficit Hyperactivity Disorder, Hx Eating Disorder, Hx Panic Disorder, Hx Post Traumatic Stress Disorder, Hx Inpatient Treatment, Hx Community Mental Health Tx, Hx Schizophrenia, Hx Bipolar Disorder, Hx Suicide Attempt, Hx of Violent Episodes Against Others, Hx Substance Abuse, Other Psychiatric Issues/Disorders - Cancer History Hx Chemotherapy: No Hx Radiation Therapy: No Hx Palliative Cancer Treatment: No - Surgical History Surgery Procedure, Year, and Place: 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[place], [place]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; LEFT LUNG SX FOR REPAIR; LEFT ARM FISTULA FOR DIALISYS 2015, RIGHT CHEST WALL CATH FOR DIALYSIS; RIGHT NEPHRECTOMY - kidney rejected, 2015 Hx Anesthesia Reactions: No - Immunization History Date of Tetanus Vaccine: unk Date of Influenza Vaccine: unk Infectious Disease History: No Infectious Disease History: Denies: Hx Hepatitis, Hx of Known/Suspected MRSA, Hx Shingles, Hx Tuberculosis, History Other Infectious Disease, Traveled Outside the [place] in Last 30 Days - Family History Known Family History: Positive: Other - Mother carrier of alport disease gene Negative: Blood Disorder - Social History Alcohol Use: None Alcohol Amount: Once per month before getting sick in February Substance Use: No Substance Use Type: Reports: None Hx Tobacco Use: Yes Smoking Status (MU): Former Smoker Type: Cigarettes Amount Used/How Often: 1 PPD X 4 YEARS Have You Smoked in the Last Year: No Review of Systems Constitutional: Negative Eyes: Negative ENT: Negative Cardiovascular: Negative Respiratory: Negative Gastrointestinal: Negative Genitourinary: Negative Musculoskeletal: Negative Skin: Other Neurological: Negative Psychological: Normal All Other Systems Reviewed And Are Negative: Yes Physical Exam - Summary Physical Exam Summary: Flexion and extension intact at all individual joints of right thumb. Bleeding controlled. PMS intact distally. Triage Information Reviewed: Yes Vital Signs On Initial Exam: Initial Vitals Temp Pulse Resp BP Pulse Ox 97.6 F 58 16 109/51 97 12/13/17 20:35 12/13/17 20:35 12/13/17 20:35 12/13/17 20:35 12/13/17 20:35 Vital Signs Reviewed: Yes Appearance: Positive: Well-Appearing Skin: Positive: Warm Head/Face: Positive: Normal Head/Face Inspection Eyes: Positive: Normal Neck: Positive: Supple Respiratory/Lung Sounds: Positive: Clear to Auscultation Cardiovascular: Positive: Normal Abdomen Description: Positive: Nontender Musculoskeletal: Positive: Normal Neurological: Positive: Normal Psychiatric: Positive: Normal AVPU Assessment: Alert - [place] Coma Scale Best Eye Response: 4 - Spontaneous Best Motor Response: 6 - Obeys Commands Best Verbal Response: 5 - Oriented Coma Scale Total: 15 Procedures - Laceration/Wound Repair 1 Location: upper extremity Description: Linear Anesthesia: Local, 1.0% Length, Depth and Shape: 3cm x 0.5cm Betadine Prep?: Yes Irrigated w/ Saline (ccs): 50 Laceration/Wound Explored: clean Debridement: minimal Number of Sutures: 4 - 4.0 ethilon Layer Closure?: No Diagnostics - Vital Signs Vital Signs Temp Pulse Resp BP Pulse Ox 12/13/17 20:35 97.6 F 58 16 109/51 97 - Laboratory Lab Statement: Any lab studies that have been ordered have been reviewed, and results considered in the medical decision making process. Laceration Repair Course/Dx - Course Course Of Treatment: Patient complains of laceration to dorsal surface of base of left thumb from an angle mash grinder today. Tetanus status unknown. Patient on dialysis. Denies any other pain, symptoms, injury. Denies loss of sensation or function distally. Bleeding controlled. Physical exam:Flexion and extension intact at all individual joints of right thumb. Bleeding controlled. PMS intact distally. - Clinical Impression Provider Diagnoses: Laceration Discharge - Sign-Out/Discharge Documenting (check all that apply): Patient Departure - Discharge Plan Condition: Stable Disposition: HOME Prescriptions: Cephalexin CAP* [Keflex CAP*] 500 mg PO TID 7 Days #21 cap Patient Education Materials: Care For Your Stitches (ED), Laceration (ED), Finger Laceration (ED) Referrals: Christa Frey MD [Primary Care Provider] - Additional Instructions: Sutures out in 10 days. May wash with warm running water and soap. Do not submerge underwater. Take antibiotics as directed. Return to the ED for any new or worsening symptoms - Billing Disposition and Condition Condition: STABLE Disposition: Home
[2017-12-13 23:31] VITALS: BP 122/69
--- NOTE | 2017-12-14 08:05 | RAD ---
HISTORY: wheel grinder to dorsal base of left thumb COMPARISONS: None VIEWS: 4 , Frontal, lateral, and oblique views of the left hand FINDINGS: BONE DENSITY: Normal. BONES: There is no displaced fracture. JOINTS: There is no arthropathy. ALIGNMENT: There is no dislocation. SOFT TISSUES: Unremarkable. OTHER FINDINGS: None. IMPRESSION: NO ACUTE OSSEOUS INJURY. IF SYMPTOMS PERSIST, RECOMMEND REPEAT IMAGING. R0
== END 2017-12-13 23:31 | disposition home or self-care (01) ==
LOC: ED 20:25
DX: S61.012A Laceration without foreign body of left thumb without damage to nail, initial encounter (principal); W29.8XXA Contact with other powered hand tools and household machinery, initial encounter; Y92.9 Unspecified place or not applicable; Z87.891 Personal history of nicotine dependence; Z79.82 Long term (current) use of aspirin; Z79.01 Long term (current) use of anticoagulants
CPT/HCPCS: 12002; 90471; 90715; 99283; A9270-GY

== ENCOUNTER 2018-04-04 14:47 | Emergency (ER) | payer MEDICARE ==
[2018-04-04 16:01] LABS: ABS Basophils 0.1 10^3/ul (0-0.2); ABS Eosinophils 0.1 10^3/ul (0-0.6); ABS Lymphocytes 0.9 10^3/ul (1.0-4.8); ABS Monocytes 0.4 10^3/ul (0-0.8); ABS Neutrophils 4.6 10^3/ul (1.5-7.7); ABS Nucleated RBC 0 10^3/ul; Eosinophil % 1.7 %; Hematocrit 34 % (42-52); Hemoglobin 11.2 g/dl (14.0-18.0); Lymphocyte % 14.3 %; Mean Corpuscular HGB Conc 33 g/dl (31-36); Mean Corpuscular Hemoglobin 28 pg (27-31); Mean Corpuscular Volume 87 fL (80-94); Mean Platelet Volume 7.9 fL (7.4-10.4); Nucleated Red Blood Cells % 0; Platelet Count 230 10^3/ul (150-450); Red Blood Count 3.93 10^6/ul (4.00-5.40); Red Cell Distribution Width 15 % (10.5-15)
[2018-04-04 16:12] LABS: Albumin 5.2 g/dL (3.2-5.2); Albumin/Globulin Ratio 1.7 (1-3); BUN/Creatinine Ratio 5.3 (8-20); Calcium 8.4 mg/dL (8.6-10.3); EGFR African American 5.8 (>60); EGFR Non-African American 4.8 (>60); Globulin 3.1 g/dL (2-4); Magnesium 2.5 mg/dL (1.9-2.7); Total Bilirubin 0.9 mg/dL (0.2-1.0); Total Protein 8.3 g/dL (6.4-8.9)
[2018-04-04 16:14] LABS: Troponin I 0.01 ng/mL (<0.04)
[2018-04-04 16:16] LABS: Potassium 7.1 mmol/L (3.5-5.0)
[2018-04-04] MEDS ORDERED: Insulin REGULAR(*) 1 UNITS UNIT IV PUSH ONE (16:19)
[2018-04-04] MEDS ORDERED: Dextrose 50% Syringe 50 ML* 25 GM/50 ML SYRINGE IV PUSH ONE (16:19)
[2018-04-04] MEDS ORDERED: Sodium Bicarbonate 8.4%* 50 ML SYRINGE IV ONE (16:20)
[2018-04-04] MEDS ORDERED: Calcium Gluconate INJ* 1 GM in NS 0.9% 100 ML* 100 ML IVPB ONE (16:20)
[2018-04-04] MEDS ORDERED: Metoclopramide IV* 5 MG/ML 2 ML VIAL IV ONE (16:21)
[2018-04-04] MEDS ORDERED: diPHENhydraMINE IV* 50 MG/ML 1 ml VIAL (BENADRYL) IV ONE (16:22)
--- NOTE | 2018-04-04 16:31 | ED ---
GI/ HPI - HPI Summary HPI Summary: This patient is a 33 year old male presenting to [facility] with his significant other with a cc of n/v that began this morning. He is a dialysis patient with his last treatment being done 2 days ago, he believes he may be hyperkalemic. Currently he reports having a migraine with associated photophobia. Pt rates the pain 8/10 in severity. He also feels week and denies fever. He has hx of migraines hyperkalemia. - History of Current Complaint Chief Complaint: EDNauseaVomitDiarrh Time Seen by Provider: 04/04/18 15:43 Stated Complaint: VOMITING Hx Obtained From: Patient, Family/Test Fixture Designer Onset/Duration: Started Hours Ago, Still Present Timing: Constant Severity: Moderate Current Severity: Moderate Pain Intensity: 7 Location of Pain: Diffuse Associated Signs and Symptoms: Positive: Nausea, Vomiting - Additional Pertinent History Primary Care Physician: MATT - Allergy/Home Medications Allergies/Adverse Reactions: Allergies Allergy/AdvReac Type Severity Reaction Status Date / Time aspirin Allergy Unknown Verified 03/26/18 09:43 Reaction Details gabapentin Allergy twitching, Verified 03/26/18 09:43 double vision hydrocodone Allergy twitching Verified 03/26/18 09:43 PMH/Surg Hx/FS Hx/Imm Hx Endocrine/Hematology History: Reports: Hx Anticoagulant Therapy, Hx Blood Transfusions - February 2016, Hx Anemia Denies: Hx Blood Disorders, Hx Bone Marrow Disease, Hx Diabetes, Hx Systemic Lupus Erythematosus, Hx Sickle Cell Disease, Hx Thyroid Disease, Hx Unexplained Bleeding, Other Endocrine/Hematological Disorders Cardiovascular History: Reports: Hx Congestive Heart Failure - Probable 09/18/16 , Hx Embolism - PE, Hx Hypertension - ON MEDICATION FOR, Other Cardiovascular Problems/Disorders - RT.KIDNEY TRANSPLANT FAILED AND REMOVED/DIALYSIS Denies: Hx Aneurysm, Hx Angina, Hx Angioplasty, Hx Auto Implanted Cardiovert Defib, Hx Cardiac Arrest, Hx Cardiomegaly, Hx Congenital Heart Disease, Hx Coronary Artery Disease, Hx Deep Vein Thrombosis, Hx Hypercholesterolemia, Hx Hypotension, Hx Pacemaker/ICD, Hx Peripheral Vascular Disease, Hx Rheumatic Fever, Hx Syncope, Hx Valvular Heart Disease Respiratory History: Reports: Hx Pulmonary Edema - Flash pulmonary edema resulting in CPR 09/02/16, Other Respiratory Problems/Disorders - "left lung repaired for pneumothorax in 2006 Denies: Hx Asthma, Hx Chronic Bronchitis, Hx Chronic Obstructive Pulmonary Disease (COPD), Hx Cystic Fibrosis, Hx Lung Cancer, Hx Pleural Effusion, Hx Pneumonia, Hx Pulmonary Embolism, Hx Seasonal Allergies, Hx Sleep Apnea GI History: Denies: Hx Cirrhosis, Hx Crohn's Disease, Hx Diverticulosis, Hx Gall Bladder Disease, Hx Gastroesophageal Reflux Disease, Hx Gastrointestinal Bleed, Hx Hiatal Hernia, Hx Irritable Bowel, Hx Jaundice, Hx Obstructive Bowel, Hx Ileostomy, Hx Pyloric Stenosis, Hx Ulcer, Other GI Disorders History: Reports: Hx Acute Renal Failure, Hx Chronic Renal Failure, Hx Dialysis, Hx Renal Disease - TRANSPLANT - RT, dialysis every Mon., Wed., Thu., Other Problems/Disorders - DIALYSIS Denies: Hx Benign Prostatic Hyperplasia, Hx Kidney Infection, Hx Kidney Stones Musculoskeletal History: Reports: Hx Back Problems - chronic back pain Denies: Hx Arthritis, Hx Bursitis, Hx Congenital Bone Abnormalities, Hx Fibromyalgia, Hx Gout, Hx Orthopedic Injury, Hx Osteoporosis, Hx Scoliosis, Hx Tendonitis, Other Musculoskeletal History Sensory History: Reports: Hx Deafness, Hx Hearing Aid, Hx Hearing Problem - moderate hearing loss bilat ears, Other Sensory Impairments - Photophobia Denies: Hx Cataracts, Hx Contacts or Glasses, Hx Eye Injury, Hx Eye Prosthesis, Hx Glaucoma, Hx Legally Blind, Hx Macular Degeneration, Hx Vision Problem Opthamlomology History: Reports: Other Sensory Impairments - Photophobia Denies: Hx Cataracts, Hx Contacts or Glasses, Hx Eye Injury, Hx Eye Prosthesis, Hx Glaucoma, Hx Legally Blind, Hx Macular Degeneration, Hx Vision Problem Neurological History: Reports: Hx Headaches, Hx Migraine - 1-2 PER MONTH, Hx Seizures - September 2016, Other Neuro Impairments/Disorders - Restless leg syndrome Denies: Hx Dementia, Hx Developmental Delay, Hx Nerve Disease, Hx Spinal Cord Injury, Hx Transient Ischemic Attacks (TIA) Psychiatric History: Reports: Hx Anxiety - NEW-STATES MD IS AWARE, Hx Depression - NEW-STATES MD IS AWARE Denies: Hx Attention Deficit Hyperactivity Disorder, Hx Eating Disorder, Hx Panic Disorder, Hx Post Traumatic Stress Disorder, Hx Inpatient Treatment, Hx Community Mental Health Tx, Hx Schizophrenia, Hx Bipolar Disorder, Hx Suicide Attempt, Hx of Violent Episodes Against Others, Hx Substance Abuse, Other Psychiatric Issues/Disorders - Cancer History Hx Chemotherapy: No Hx Radiation Therapy: No Hx Palliative Cancer Treatment: No - Surgical History Surgery Procedure, Year, and Place: 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[place], [place]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; LEFT LUNG SX FOR REPAIR; LEFT ARM FISTULA FOR DIALISYS 2016, RIGHT CHEST WALL CATH FOR DIALYSIS; RIGHT NEPHRECTOMY - kidney rejected, 2016 Hx Anesthesia Reactions: No - Immunization History Date of Tetanus Vaccine: unk Date of Influenza Vaccine: unk Infectious Disease History: No Infectious Disease History: Denies: Hx Hepatitis, Hx of Known/Suspected MRSA, Hx Shingles, Hx Tuberculosis, History Other Infectious Disease, Traveled Outside the US in Last 30 Days - Family History Known Family History: Positive: Other - Mother carrier of alport disease gene Negative: Blood Disorder - Social History Alcohol Use: None Alcohol Amount: Once per month before getting sick in February Hx Substance Use: No Substance Use Type: Reports: None Hx Tobacco Use: Yes Smoking Status (MU): Former Smoker Type: Cigarettes Amount Used/How Often: 1 PPD X 4 YEARS Have You Smoked in the Last Year: No Review of Systems Negative: Fever Positive: Photophobia Positive: Vomiting, Nausea Positive: Headache, Weakness All Other Systems Reviewed And Are Negative: Yes Physical Exam - Summary Physical Exam Summary: Appearance: Well appearing, no pain distress Skin: warm, dry, reflects adequate perfusion Head/face: normal Eyes: EOMI, MELODY ENT: normal Neck: supple, non-tender Respiratory: CTA, breath sounds present Cardiovascular: RRR, pulses symmetrical Abdomen: non-tender, soft Musculoskeletal: normal, strength/ROM intact, there is a shunt in the left upper arm. Neuro: normal, sensory motor intact, A&Ox3 Triage Information Reviewed: Yes Vital Signs On Initial Exam: Initial Vitals Temp Pulse Resp BP Pulse Ox 98.5 F 73 20 168/104 100 04/04/18 14:50 04/04/18 14:50 04/04/18 14:50 04/04/18 14:50 04/04/18 14:50 Vital Signs Reviewed: Yes Diagnostics - Vital Signs Vital Signs Temp Pulse Resp BP Pulse Ox 04/04/18 14:50 98.5 F 73 20 168/104 100 - Laboratory Lab Results: Lab Results 04/04/18 04/04/18 Range/Units 15:47 15:47 WBC 6.0 (3.5-10.8) 10^3/ul RBC 3.93 L (4.00-5.40) 10^6/ul Hgb 11.2 L (14.0-18.0) g/dl Hct 34 L (42-52) % MCV 87 (80-94) fL MCH 28 (27-31) pg MCHC 33 (31-36) g/dl RDW 15 (10.5-15) % Plt Count 230 (150-450) 10^3/ul MPV 7.9 (7.4-10.4) fL Neut % (Auto) 76.6 % Lymph % (Auto) 14.3 % Robertson % (Auto) 6.2 % Eos % (Auto) 1.7 % Baso % (Auto) 1.2 % Absolute Neuts (auto) 4.6 (1.5-7.7) 10^3/ul Absolute Lymphs (auto) 0.9 L (1.0-4.8) 10^3/ul Absolute Monos (auto) 0.4 (0-0.8) 10^3/ul Absolute Eos (auto) 0.1 (0-0.6) 10^3/ul Absolute Basos (auto) 0.1 (0-0.2) 10^3/ul Absolute Nucleated RBC 0 10^3/ul Nucleated RBC % 0 Sodium 136 (135-145) mmol/L Potassium 7.1 H* (3.5-5.0) mmol/L Chloride 92 L (101-111) mmol/L Carbon Dioxide 30 (22-32) mmol/L Anion Gap 14 H (2-11) mmol/L BUN 65 H (6-24) mg/dL Creatinine 12.38 H (0.67-1.17) mg/dL Est GFR ( Amer) 5.8 (>60) Est GFR (Non-Af Amer) 4.8 (>60) BUN/Creatinine Ratio 5.3 L (8-20) Glucose 94 (70-100) mg/dL Calcium 8.4 L (8.6-10.3) mg/dL Magnesium 2.5 (1.9-2.7) mg/dL Total Bilirubin 0.90 (0.2-1.0) mg/dL AST 11 L (13-39) U/L ALT 11 (7-52) U/L Alkaline Phosphatase 121 H (34-104) U/L Troponin I 0.01 (<0.04) ng/mL Total Protein 8.3 (6.4-8.9) g/dL Albumin 5.2 (3.2-5.2) g/dL Globulin 3.1 (2-4) g/dL Albumin/Globulin Ratio 1.7 (1-3) Result Diagrams: 04/04/18 15:47 04/04/18 15:47 Lab Statement: Any lab studies that have been ordered have been reviewed, and results considered in the medical decision making process. - Radiology CXR Radiology Interpretation Completed By: Radiologist Summary of Radiographic Findings: CARDIOMEGALY WITH INTERSTITIAL EDEMA CONSISTENT WITH VASCULAR CONGESTION. ED physician has reviewed this radiology report - CT CT Brain CT Interpretation Completed By: Radiologist Summary of CT Findings: No intracranial mass or hemorrhage is noted. ED physician has reviewed this radiology report - EKG 1700 Cardiac Rate: NL EKG Rhythm: Sinus Rhythm - at 70 BPM Summary of EKG Findings: No acute changes Re-Evaluation - Re-Evaluation First Eval Re-Evaluation Time: 17:05 Change: Unchanged Comment: I informed the pt that he will need to be transfered for proper care. He does not wish to go to [facility] and would like to go to [facility] in [place] instead. GIGU Course/Dx - Diagnoses Differential Diagnoses - Male: Other - esrd on hd/headache Provider Diagnoses: Renal failure, Hyperkalemia - Critical Care Time Critical Care Time: 30-74 min Discharge - Sign-Out/Discharge Documenting (check all that apply): Patient Departure - transfer - Discharge Plan Condition: Fair Disposition: TRANS HIGHER LVL OF CARE FAC Referrals: Christa Frey MD [Primary Care Provider] - - Billing Disposition and Condition Condition: FAIR Disposition: Trans Higher Lvl of Care Fac - Attestation Statements Document Initiated by Maryibe: Yes Documenting Scribe: Wisam Castro Provider For Whom Minesh is Documenting (Include Credential): Ej Anderson MD Scribe Attestation: Wisam Alejandro scralesiaed for Ej Anderson MD on 04/04/18 at 1844. Scribe Documentation Reviewed: Yes Provider Attestation: The documentation as recorded by the Wisam florence accurately reflects the service I personally performed and the decisions made by me, Ej Anderson MD Status of Scribe Document: Viewed
[2018-04-04] MEDS ORDERED: NS 0.9% 100 ML* 100 ML ONE (16:39)
[2018-04-04] MEDS: Patiromer POWDER* 8.4 GM PAK PO STA ×2 (18:18→18:25)
--- NOTE | 2018-04-04 18:56 | PN ---
Progress Note - Progress Note Date of Service: 04/04/18 Note: PRIOR DOCUMENT WAS SIGNED WITHOUT COURSE AND CONSULTS ENTERED, THEY ARE FOLLOWS. This patient is a 33 year old male presenting to [facility] with his significant other with a cc of n/v that began this morning. He is a dialysis patient with his last treatment being done 2 days ago, he believes he may be hyperkalemic. Currently he reports having a migraine with associated photophobia. Pt rates the pain 8/10 in severity. He also feels week and denies fever. He has hx of migraines hyperkalemia. CXR reveals, per radiologist, CARDIOMEGALY WITH INTERSTITIAL EDEMA CONSISTENT WITH VASCULAR CONGESTION. CT brain reveals, per radiologist, No intracranial mass or hemorrhage is noted. Bloodwork obtained. In the ED course the patient received reglan, insulin, benadryl, and IV fluids. 1626: I discussed patient care with Dr. Arana and he suggested transferring the pt as he has no nurse on to perform dialysis. 1717: I contacted the transfer center at [facility] and they are aware of the patient and will make sure then can accommodate him. 1730 [facility] states they do not have overnight dialysis so they cannot accept the patient. 1800: I contacted the transfer center as [facility] and spoke to Dr. Ponce, Urology there. They are able to accept the patient 1815: I discussed the transfer with [facility] again and the patient is accepted for transfer and will be taken to the ED. The accepting physician is Dr. Barajas. The patient will be transferred. Pt understands and agrees.
[2018-04-04 19:03] VITALS: BP 147/76
[2018-04-04] MEDS ORDERED: Morphine VIAL* 10 MG/ML 1 ML VIAL IV ONE (19:34)
== END 2018-04-04 19:02 | disposition short-term general hospital (02) ==
LOC: ED 14:47
DX: N19 Unspecified kidney failure (principal); E87.5 Hyperkalemia; R11.2 Nausea with vomiting, unspecified; Z88.6 Allergy status to analgesic agent; Z79.01 Long term (current) use of anticoagulants; Z87.891 Personal history of nicotine dependence
CPT/HCPCS: 36415; 70450; 71045; 80053; 83735; 84484; 85025; 93005; 99284; A9270-GY; J0610; J2270; J2765

== ENCOUNTER → 2018-04-29 12:35 | Emergency (ER) | payer MEDICARE, BC ==
[~2018-04-29 12:35] MED LIST changes: +Acetaminophen TAB* 325 MG PO ONE; -Buffered Lidocaine 0.9% SYRIN* 5 ML/SYR SYRINGE INTRADERM ONE; -NS 0.45% 1000 ML BAG* 1,000 ML IV SCH
[2018-04-29 16:41] VITALS: BP 173/103
--- NOTE | 2018-04-29 18:22 | ED ---
Lower Extremity - HPI Summary HPI Summary: Pt. is a 33 y.o male who presents to the ER for a right ankle injury that occurred today. Pt. states he was running barefoot after his dog when he slipped and twisted right ankle. No other injuries were sustained. Pt. states he cannot ambulate secondary to pain. Sxs are mild in severity. Walking makes sxs worse. Rest makes sxs better. - History of Current Complaint Chief Complaint: EDExtremityLower Stated Complaint: FALL RIGHT ANKLE PAIN Time Seen by Provider: 04/29/18 13:57 Pain Intensity: 4 Pain Scale Used: 0-10 Numeric - Allergies/Home Medications Allergies/Adverse Reactions: Allergies Allergy/AdvReac Type Severity Reaction Status Date / Time aspirin Allergy Unknown Verified 03/26/18 09:43 Reaction Details gabapentin Allergy twitching, Verified 03/26/18 09:43 double vision hydrocodone Allergy twitching Verified 03/26/18 09:43 PMH/Surg Hx/FS Hx/Imm Hx Previously Healthy: Yes Endocrine/Hematology History: Reports: Hx Anticoagulant Therapy, Hx Blood Transfusions - February 2016, Hx Anemia Denies: Hx Blood Disorders, Hx Bone Marrow Disease, Hx Diabetes, Hx Systemic Lupus Erythematosus, Hx Sickle Cell Disease, Hx Thyroid Disease, Hx Unexplained Bleeding, Other Endocrine/Hematological Disorders Cardiovascular History: Reports: Hx Congestive Heart Failure - Probable 09/18/16 , Hx Embolism - PE, Hx Hypertension - ON MEDICATION FOR, Other Cardiovascular Problems/Disorders - RT.KIDNEY TRANSPLANT FAILED AND REMOVED/DIALYSIS Denies: Hx Aneurysm, Hx Angina, Hx Angioplasty, Hx Auto Implanted Cardiovert Defib, Hx Cardiac Arrest, Hx Cardiomegaly, Hx Congenital Heart Disease, Hx Coronary Artery Disease, Hx Deep Vein Thrombosis, Hx Hypercholesterolemia, Hx Hypotension, Hx Pacemaker/ICD, Hx Peripheral Vascular Disease, Hx Rheumatic Fever, Hx Syncope, Hx Valvular Heart Disease Respiratory History: Reports: Hx Pulmonary Edema - Flash pulmonary edema resulting in CPR 09/02/16, Other Respiratory Problems/Disorders - "left lung repaired for pneumothorax in 2006 Denies: Hx Asthma, Hx Chronic Bronchitis, Hx Chronic Obstructive Pulmonary Disease (COPD), Hx Cystic Fibrosis, Hx Lung Cancer, Hx Pleural Effusion, Hx Pneumonia, Hx Pulmonary Embolism, Hx Seasonal Allergies, Hx Sleep Apnea GI History: Denies: Hx Cirrhosis, Hx Crohn's Disease, Hx Diverticulosis, Hx Gall Bladder Disease, Hx Gastroesophageal Reflux Disease, Hx Gastrointestinal Bleed, Hx Hiatal Hernia, Hx Irritable Bowel, Hx Jaundice, Hx Obstructive Bowel, Hx Ileostomy, Hx Pyloric Stenosis, Hx Ulcer, Other GI Disorders History: Reports: Hx Acute Renal Failure, Hx Chronic Renal Failure, Hx Dialysis, Hx Renal Disease - TRANSPLANT - RT, dialysis every Mon., Wed., Fri., Other Problems/Disorders - DIALYSIS Denies: Hx Benign Prostatic Hyperplasia, Hx Kidney Infection, Hx Kidney Stones Musculoskeletal History: Reports: Hx Back Problems - chronic back pain Denies: Hx Arthritis, Hx Bursitis, Hx Congenital Bone Abnormalities, Hx Fibromyalgia, Hx Gout, Hx Orthopedic Injury, Hx Osteoporosis, Hx Scoliosis, Hx Tendonitis, Other Musculoskeletal History Sensory History: Reports: Hx Deafness, Hx Hearing Aid, Hx Hearing Problem - moderate hearing loss bilat ears, Other Sensory Impairments - Photophobia Denies: Hx Cataracts, Hx Contacts or Glasses, Hx Eye Injury, Hx Eye Prosthesis, Hx Glaucoma, Hx Legally Blind, Hx Macular Degeneration, Hx Vision Problem Opthamlomology History: Reports: Other Sensory Impairments - Photophobia Denies: Hx Cataracts, Hx Contacts or Glasses, Hx Eye Injury, Hx Eye Prosthesis, Hx Glaucoma, Hx Legally Blind, Hx Macular Degeneration, Hx Vision Problem Neurological History: Reports: Hx Headaches, Hx Migraine - 1-2 PER MONTH, Hx Seizures - September 2016, Other Neuro Impairments/Disorders - Restless leg syndrome Denies: Hx Dementia, Hx Developmental Delay, Hx Nerve Disease, Hx Spinal Cord Injury, Hx Transient Ischemic Attacks (TIA) Psychiatric History: Reports: Hx Anxiety - NEW-STATES MD IS AWARE, Hx Depression - NEW-STATES MD IS AWARE Denies: Hx Attention Deficit Hyperactivity Disorder, Hx Eating Disorder, Hx Panic Disorder, Hx Post Traumatic Stress Disorder, Hx Inpatient Treatment, Hx Community Mental Health Tx, Hx Schizophrenia, Hx Bipolar Disorder, Hx Suicide Attempt, Hx of Violent Episodes Against Others, Hx Substance Abuse, Other Psychiatric Issues/Disorders - Cancer History Hx Chemotherapy: No Hx Radiation Therapy: No Hx Palliative Cancer Treatment: No - Surgical History Surgery Procedure, Year, and Place: 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[place], [place]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; LEFT LUNG SX FOR REPAIR; LEFT ARM FISTULA FOR DIALISYS 2015, RIGHT CHEST WALL CATH FOR DIALYSIS; RIGHT NEPHRECTOMY - kidney rejected, 2015 Hx Anesthesia Reactions: No - Immunization History Date of Tetanus Vaccine: unk Date of Influenza Vaccine: unk Infectious Disease History: No Infectious Disease History: Denies: Hx Hepatitis, Hx of Known/Suspected MRSA, Hx Shingles, Hx Tuberculosis, History Other Infectious Disease, Traveled Outside the [place] in Last 30 Days - Family History Known Family History: Positive: Other - Mother carrier of alport disease gene Negative: Blood Disorder - Social History Occupation: Unemployed Lives: Alone Alcohol Use: None Alcohol Amount: Once per month before getting sick in February Substance Use: No Substance Use Type: Reports: None Hx Tobacco Use: Yes Smoking Status (MU): Former Smoker Type: Cigarettes Amount Used/How Often: 1 PPD X 4 YEARS Have You Smoked in the Last Year: No Review of Systems Positive: Other - right ankle pain and swelling Negative: Weakness, Paresthesia, Numbness All Other Systems Reviewed And Are Negative: Yes Physical Exam Triage Information Reviewed: Yes Vital Signs On Initial Exam: Initial Vitals Temp Pulse Resp BP Pulse Ox 99.6 F 78 16 161/94 100 04/29/18 12:36 04/29/18 12:36 04/29/18 12:36 04/29/18 12:36 04/29/18 12:36 Vital Signs Reviewed: Yes Appearance: Positive: Well-Appearing - Pt. sitting in chair in NAD. Friend present. Skin: Positive: Warm, Dry Head/Face: Positive: Normal Head/Face Inspection Eyes: Positive: Normal, EOMI Neck: Positive: Supple Musculoskeletal: Positive: Other - Moderate soft tissue swelling over right lateral malleolus with pain. No pain over the base of the 5th metatarsal. No proximal tib/fib or knee pain. Good pedal pulse. No breaks in the skin. Neurological: Positive: Normal, CN Intact II-III Psychiatric: Positive: Affect/Mood Appropriate Diagnostics - Vital Signs Vital Signs Temp Pulse Resp BP Pulse Ox 04/29/18 16:39 99.8 F 66 15 173/103 100 04/29/18 12:36 99.6 F 78 16 161/94 100 - Laboratory Lab Statement: Any lab studies that have been ordered have been reviewed, and results considered in the medical decision making process. Lower Extremity Course/Dx - Course Course Of Treatment: Patient presenting with isolated right ankle injury. Patient does Tylenol for pain. Xray per radiology: IMPRESSION: NO ACUTE OSSEOUS INJURY. JOINT EFFUSION. IF SYMPTOMS PERSIST, RECOMMEND REPEAT IMAGING. Harry wrap and crutches placed. Advised ice and elevation. Tylenol for pain as directed. To follow-up with orthopedic clinic and further evaluation if pain and swelling persists. - Diagnoses Differential Diagnosis/HQI/PQRI: Positive: Contusion, Dislocation, Fracture ( Closed), Sprain, Strain Provider Diagnoses: Ankle sprain Discharge - Sign-Out/Discharge Documenting (check all that apply): Patient Departure Patient Received Moderate/Deep Sedation with Procedure: No - Discharge Plan Condition: Good Disposition: HOME Patient Education Materials: Ankle Sprain (ED) Referrals: Chris Katz MD [Medical Doctor] - Christa Frey MD [Primary Care Provider] - Additional Instructions: Schedule a follow up appointment with the orthopedic clinic is pain and swelling persist Wear splint and use crutches Ice and elevate Tylenol for pain as directed Return to ER if symptoms change or worsen - Billing Disposition and Condition Condition: GOOD Disposition: Home
== END | disposition home or self-care (01) ==
LOC: ED 12:35
DX: S93.401A Sprain of unspecified ligament of right ankle, initial encounter (principal); W01.0XXA Fall on same level from slipping, tripping and stumbling without subsequent striking against object, initial encounter; Y93.02 Activity, running; Y92.9 Unspecified place or not applicable; I50.9 Heart failure, unspecified; Z79.01 Long term (current) use of anticoagulants; Z87.891 Personal history of nicotine dependence; Z98.85 Transplanted organ removal status
CPT/HCPCS: 99282; A9270-GY

== ENCOUNTER 2018-05-03 09:57 | Emergency (ER) | payer MEDICARE, BC ==
[2018-05-03] MEDS ORDERED: diPHENhydraMINE IV* 50 MG/ML 1 ml VIAL (BENADRYL) IM ONE (10:22)
[2018-05-03] MEDS ORDERED: Metoclopramide IV* 5 MG/ML 2 ML VIAL IV ONE (10:22)
--- NOTE | 2018-05-03 10:24 | ED ---
Headache - HPI Summary HPI Summary: Pt is a 33 y/o M presenting to the ED with a chief complaint of a migraine onset today rated at 9/10. He was on a dialysis machine, began throwing up and his head started killing him. He has a hx of migraines which he has methadone for but it does not always work. - History Of Current Complaint Chief Complaint: EDHeadache Stated Complaint: HEADCHES/NAUSEA Time Seen by Provider: 05/03/18 10:15 Hx Obtained From: Patient Onset/Duration: Sudden Onset, Started hours ago, Still Present Initially Headache Was: Severe Currently Pain Is: Severe Timing: Constant, Hours Character: Migraine Location of Headache: Diffuse Aggravating Factor: Bright Lights Allevating Factors: Nothing Associated Signs And Symptoms: Nausea, Vomiting - Allergies/Home Medications Allergies/Adverse Reactions: Allergies Allergy/AdvReac Type Severity Reaction Status Date / Time aspirin Allergy Unknown Verified 05/03/18 10:23 Reaction Details gabapentin Allergy twitching, Verified 05/03/18 10:23 double vision hydrocodone Allergy twitching Verified 05/03/18 10:23 ibuprofen Allergy Unknown Verified 05/03/18 10:23 Reaction Details PMH/Surg Hx/FS Hx/Imm Hx Previously Healthy: No Endocrine/Hematology History: Reports: Hx Anticoagulant Therapy, Hx Blood Transfusions - February 2016, Hx Anemia Denies: Hx Blood Disorders, Hx Bone Marrow Disease, Hx Diabetes, Hx Systemic Lupus Erythematosus, Hx Sickle Cell Disease, Hx Thyroid Disease, Hx Unexplained Bleeding, Other Endocrine/Hematological Disorders Cardiovascular History: Reports: Hx Congestive Heart Failure - Probable 09/18/16 , Hx Embolism - PE, Hx Hypertension - ON MEDICATION FOR, Other Cardiovascular Problems/Disorders - RT.KIDNEY TRANSPLANT FAILED AND REMOVED/DIALYSIS Denies: Hx Aneurysm, Hx Angina, Hx Angioplasty, Hx Auto Implanted Cardiovert Defib, Hx Cardiac Arrest, Hx Cardiomegaly, Hx Congenital Heart Disease, Hx Coronary Artery Disease, Hx Deep Vein Thrombosis, Hx Hypercholesterolemia, Hx Hypotension, Hx Pacemaker/ICD, Hx Peripheral Vascular Disease, Hx Rheumatic Fever, Hx Syncope, Hx Valvular Heart Disease Respiratory History: Reports: Hx Pulmonary Edema - Flash pulmonary edema resulting in CPR 09/02/16, Other Respiratory Problems/Disorders - "left lung repaired for pneumothorax in 2006 Denies: Hx Asthma, Hx Chronic Bronchitis, Hx Chronic Obstructive Pulmonary Disease (COPD), Hx Cystic Fibrosis, Hx Lung Cancer, Hx Pleural Effusion, Hx Pneumonia, Hx Pulmonary Embolism, Hx Seasonal Allergies, Hx Sleep Apnea GI History: Denies: Hx Cirrhosis, Hx Crohn's Disease, Hx Diverticulosis, Hx Gall Bladder Disease, Hx Gastroesophageal Reflux Disease, Hx Gastrointestinal Bleed, Hx Hiatal Hernia, Hx Irritable Bowel, Hx Jaundice, Hx Obstructive Bowel, Hx Ileostomy, Hx Pyloric Stenosis, Hx Ulcer, Other GI Disorders History: Reports: Hx Acute Renal Failure, Hx Chronic Renal Failure, Hx Dialysis, Hx Renal Disease - TRANSPLANT - RT, dialysis every Mon., Wed., Thu., Other Problems/Disorders - DIALYSIS Denies: Hx Benign Prostatic Hyperplasia, Hx Kidney Infection, Hx Kidney Stones Musculoskeletal History: Reports: Hx Back Problems - chronic back pain Denies: Hx Arthritis, Hx Bursitis, Hx Congenital Bone Abnormalities, Hx Fibromyalgia, Hx Gout, Hx Orthopedic Injury, Hx Osteoporosis, Hx Scoliosis, Hx Tendonitis, Other Musculoskeletal History Sensory History: Reports: Hx Deafness, Hx Hearing Aid, Hx Hearing Problem - moderate hearing loss bilat ears, Other Sensory Impairments - Photophobia Denies: Hx Cataracts, Hx Contacts or Glasses, Hx Eye Injury, Hx Eye Prosthesis, Hx Glaucoma, Hx Legally Blind, Hx Macular Degeneration, Hx Vision Problem Opthamlomology History: Reports: Other Sensory Impairments - Photophobia Denies: Hx Cataracts, Hx Contacts or Glasses, Hx Eye Injury, Hx Eye Prosthesis, Hx Glaucoma, Hx Legally Blind, Hx Macular Degeneration, Hx Vision Problem Neurological History: Reports: Hx Headaches, Hx Migraine - 1-2 PER MONTH, Hx Seizures - September 2016, Other Neuro Impairments/Disorders - Restless leg syndrome Denies: Hx Dementia, Hx Developmental Delay, Hx Nerve Disease, Hx Spinal Cord Injury, Hx Transient Ischemic Attacks (TIA) Psychiatric History: Reports: Hx Anxiety - NEW-STATES MD IS AWARE, Hx Depression - NEW-STATES MD IS AWARE Denies: Hx Attention Deficit Hyperactivity Disorder, Hx Eating Disorder, Hx Panic Disorder, Hx Post Traumatic Stress Disorder, Hx Inpatient Treatment, Hx Community Mental Health Tx, Hx Schizophrenia, Hx Bipolar Disorder, Hx Suicide Attempt, Hx of Violent Episodes Against Others, Hx Substance Abuse, Other Psychiatric Issues/Disorders - Cancer History Hx Chemotherapy: No Hx Radiation Therapy: No Hx Palliative Cancer Treatment: No - Surgical History Surgery Procedure, Year, and Place: 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[place], [place]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; LEFT LUNG SX FOR REPAIR; LEFT ARM FISTULA FOR DIALISYS 2016, RIGHT CHEST WALL CATH FOR DIALYSIS; RIGHT NEPHRECTOMY - kidney rejected, 2016 Hx Anesthesia Reactions: No - Immunization History Date of Tetanus Vaccine: unk Date of Influenza Vaccine: unk Infectious Disease History: No Infectious Disease History: Denies: Hx Hepatitis, Hx of Known/Suspected MRSA, Hx Shingles, Hx Tuberculosis, History Other Infectious Disease, Traveled Outside the [place] in Last 30 Days - Family History Known Family History: Positive: Other - Mother carrier of alport disease gene Negative: Blood Disorder - Social History Alcohol Use: None Alcohol Amount: Once per month before getting sick in February Hx Substance Use: No Substance Use Type: Reports: None Hx Tobacco Use: Yes Smoking Status (MU): Former Smoker Type: Cigarettes Amount Used/How Often: 1 PPD X 4 YEARS Have You Smoked in the Last Year: No Review of Systems Negative: Fever Positive: Photophobia Positive: Vomiting, Nausea Positive: Headache All Other Systems Reviewed And Are Negative: Yes Physical Exam - Summary Physical Exam Summary: Appearance: Well appearing, no pain distress Skin: warm, dry, reflects adequate perfusion Head/face: normal Eyes: EOMI, MELODY ENT: normal Neck: supple, non-tender Respiratory: CTA, breath sounds present Cardiovascular: RRR, pulses symmetrical Abdomen: non-tender, soft Musculoskeletal: shunt in left arm, otherwise normal, strength/ROM intact Neuro: normal, sensory motor intact, A&Ox3 GCS: 15 Triage Information Reviewed: Yes Vital Signs On Initial Exam: Initial Vitals Temp Pulse Resp BP Pulse Ox 98.1 F 72 16 165/95 98 05/03/18 10:08 05/03/18 10:08 05/03/18 10:08 05/03/18 10:08 05/03/18 10:08 Vital Signs Reviewed: Yes Diagnostics - Vital Signs Vital Signs Temp Pulse Resp BP Pulse Ox 05/03/18 10:08 98.1 F 72 16 165/95 98 - Laboratory Result Diagrams: 05/03/18 10:51 05/03/18 10:51 Lab Statement: Any lab studies that have been ordered have been reviewed, and results considered in the medical decision making process. - CT Brain CT CT Interpretation Completed By: Radiologist Summary of CT Findings: No acute intracranial pathology. ED physician has reviewed this report. Headache Course/Dx - Course Course Of Treatment: Pt is a 33 y/o M presenting to the ED with a migraine onset hours ago while on dialysis. Pt reports associated nausea and vomiting, and denies fever. Brain CT shows no acute intracranial pathology. Results discussed with patient, who is agreeable to the plan to discharge him home. He is stable. - Diagnoses Differential Diagnosis/HQI/PQRI: Migraine, Tension Headache, Other - esrd Provider Diagnoses: Migraine headache, ESRD (end stage renal disease) Discharge - Sign-Out/Discharge Documenting (check all that apply): Patient Departure Patient Received Moderate/Deep Sedation with Procedure: No - Discharge Plan Condition: Stable Disposition: HOME Prescriptions: Butalb/Acetamin/Caff TAB* [Fioricet TAB*] 1 tab PO Q6H PRN #15 tab MDD 3 PRN Reason: Pain Ondansetron ODT TAB* [Zofran 4 MG Odt TAB*] 4 mg PO Q8H PRN #15 tab.odt MDD 3 PRN Reason: Nausea Referrals: Christa Frey MD [Primary Care Provider] - Additional Instructions: Please follow up with your primary care provider in the next 3 days. Return to the Emergency Department with any new or worsening symptoms. - Billing Disposition and Condition Condition: STABLE Disposition: Home - Attestation Statements Document Initiated by Scribe: Yes Documenting Scribe: Katharine Diaz Provider For Whom Minesh is Documenting (Include Credential): Ej Anderson MD. Scribe Attestation: Katharine Alejandro scribed for Ej Anderson MD. on 05/03/18 at 1327. Scribe Documentation Reviewed: Yes Provider Attestation: The documentation as recorded by the Katharine florence accurately reflects the service I personally performed and the decisions made by Ej haney MD. Status of Scribe Document: Viewed
[2018-05-03] MEDS: Butalb/Acetamin/Caff TAB* 1 TAB PO ONE ×2 (10:43→10:47)
[2018-05-03 10:56] LABS: ABS Basophils 0.1 10^3/ul (0-0.2); ABS Eosinophils 0.1 10^3/ul (0-0.6); ABS Lymphocytes 0.7 10^3/ul (1.0-4.8); ABS Monocytes 0.3 10^3/ul (0-0.8); ABS Neutrophils 2.7 10^3/ul (1.5-7.7); ABS Nucleated RBC 0 10^3/ul; Eosinophil % 1.9 %; Hematocrit 35 % (42-52); Hemoglobin 11.6 g/dl (14.0-18.0); Lymphocyte % 17.9 %; Mean Corpuscular HGB Conc 33 g/dl (31-36); Mean Corpuscular Hemoglobin 28 pg (27-31); Mean Corpuscular Volume 85 fL (80-94); Mean Platelet Volume 7.4 fL (7.4-10.4); Nucleated Red Blood Cells % 0.1; Platelet Count 206 10^3/ul (150-450); Red Blood Count 4.11 10^6/ul (4.00-5.40); Red Cell Distribution Width 15 % (10.5-15); White Blood Count 3.8 10^3/ul (3.5-10.8)
[2018-05-03 11:09] LABS: Activated Partial Thrombo Time 35.4 seconds (26.0-36.3); INR 0.94 (0.77-1.02)
[2018-05-03 11:18] LABS: Albumin 4.8 g/dL (3.2-5.2); Albumin/Globulin Ratio 1.8 (1-3); Calcium 9.6 mg/dL (8.6-10.3); EGFR African American 12.3 (>60); EGFR Non-African American 10.2 (>60); Globulin 2.6 g/dL (2-4); Potassium 3.8 mmol/L (3.5-5.0); Total Bilirubin 1.3 mg/dL (0.2-1.0); Total Protein 7.4 g/dL (6.4-8.9)
[2018-05-03 12:27] VITALS: BP 140/79
== END 2018-05-03 12:26 | disposition home or self-care (01) ==
LOC: ED 09:57
DX: G43.909 Migraine, unspecified, not intractable, without status migrainosus (principal); N18.6 End stage renal disease; R11.2 Nausea with vomiting, unspecified; Z88.6 Allergy status to analgesic agent; Z79.01 Long term (current) use of anticoagulants; I50.9 Heart failure, unspecified; Z87.891 Personal history of nicotine dependence
CPT/HCPCS: 36415; 70450; 80053; 85025; 85610; 85730; 96372; 96374; 99283; A9270-GY; J1200; J2765